=== PATIENT | male | born 1970 | race Caucasian/White ===

== ENCOUNTER 2019-07-03 17:25 | Emergency (ER) | payer BC, SELFPAY ==
[2019-07-03 17:26] VITALS: BP 148/77; PULSE 97; RESP 16; TEMP 36.6; O2SAT 97; BMI 34.5
--- NOTE | 2019-07-03 17:40 | RAD_ITS ---
STUDY: X-RAY - LEFT FOOT CLINICAL: Male, 48 years old. Pain. TECHNIQUE: 3 view(s) of the foot. COMPARISON: None. FINDINGS: Moderate plantar spur, otherwise negative talus, calcaneus, and tarsal bones. Normal visualized subtalar, talonavicular, calcaneocuboid, tarsal and tarsometatarsal articulations. Normal metatarsi. Normal metatarsophalangeal joint of the great toe. Normal tibial and fibular sesamoid bones. Normal interphalangeal joint of the great toe. Normal phalanges of the great toe. Normal second through fifth metatarsophalangeal joints. Normal interphalangeal joints and phalanges of the lesser toes. The soft tissue structures are unremarkable. There is no demonstrated fracture. RAD/Foot min 3 Views IMPRESSION: Normal x-ray examination of the foot. Electronically Signed: Baldomero Contreras MD at 17:58 EST , Service support ,
--- NOTE | 2019-07-03 17:41 | ED.DCSUM_ITS ---
- ER Visit Summary Date of Service: 07/03/19 Chief Complaint: [Left foot pain] History of Present Illness: The patient is a 48 M [presents to the emergency department complaint of pain in his left foot that is had for about 6 months. 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 Patient states that he has had a cortisone injection and it and gave him relief in the past. Patient since yesterday started having increasing pain. Patient states that he felt a pop yesterday and again today and it. At rest is only about a 3 out of 10 but with ambulating he has severe pain especially with attempted dorsiflexion of the foot. Patient denies any inj ury. Denies any fevers.] Physical Examination: [Left foot-no defect in the tendon noted. He is got an normal Stephenson's test. He is neurovascular intact. There is no erythema or warmth noted.] Test Results: [X-rays of the left foot were obtained which showed a heel spur and spurring at the insertion of the Achilles tendon into the heel. No fractures noted. Official report from radiology pending.] Emergency Department Course and Treatment: [Patient did not want crutches. Patient did not want a walking boot. Patient would like to follow-up with his infant and toddler teacher next week.] Suspect patient likely has a tendinitis however cannot rule out a partial tear. Treatment Plan: [Patient will be given a prescription for few [place] for severe pain. He is currently on naproxen.] Disposition: [Discharged home in stable condition] Impression: [Tendinitis left Achilles tendon] This note was generated with [employer] dictation software. It may contain incorrect words, spelling, and punctuation that were not noted in review of the chart prior to signing ED Disposition - Plan for ED Patient: Referrals: NOT,DEFINED [NON-STAFF] -
--- NOTE | 2019-07-03 18:00 | DCINST.ED_ITS ---
ED Disposition - Plan for ED Patient: Instructions: Tendonitis Prescriptions: Hydrocodone Bitart/Apap 5-325 [[place] 5MG-325MG] 1 tab PO Q4H PRN PRN 2 Days #10 tab PRN Reason: Pain Prescription Printed Referrals: NOT,DEFINED [NON-STAFF] - Additional Instructions: See Dr. Tinsley in 3-5 days
== END 2019-07-03 18:11 | disposition home or self-care (01) ==
LOC: ED 17:53
PROVIDERS: Emergency Provider Emergency Medicine; PCP Family Medicine
DX: M76.62 Achilles tendinitis, left leg (principal)
CPT/HCPCS: 73630; 99282

== ENCOUNTER 2020-05-06 09:04 | Emergency (ER) | payer BC, SELFPAY ==
[2020-05-06 09:05] VITALS: BP 154/100; PULSE 75; RESP 16; TEMP 36.3; O2SAT 97; BMI 33.9
--- NOTE | 2020-05-06 10:11 | ED.DCSUM_ITS ---
- ER Visit Summary Date of Service: 05/06/20 Chief Complaint: Back pain History of Present Illness: The patient is a 49 M who presents with back pain that has been getting worse over the past few days. Patient states it is gradually gotten worse. Patient states that it has been constant. Patient describes the pain as sharp. Patient states the pain is over the left upper thoracic area. Patient states it radiates into his neck and down his left arm. Patient admits to some tingling in the fingers of his left hand. Patient denies any weakness. Patient denies any bowel or bladder changes. Patient denies any saddle anesthesia. Patient denies any trauma or injury. Physical Examination: Vital signs are stable. Patient is afebrile. Patient is in no acute distress. Oral mucosa is pink and moist. Neck is supple. Trachea is midline. There is no JVD. Heart was regular rate and rhythm. Lungs are clear and equal bilaterally. Musculoskeletal exam reveals tenderness and spasm of the left thoracic paraspinal muscles and parascapular muscles. There is also some mild tenderness and spasm over the left cervical paraspinal muscles. There is no midline tenderness. There is no bony crepitance or step-off. Range of motion was slightly limited in all motions of the neck and upper back secondary to pain. Strength is 5/5 bilateral knee upper and lower extremities. There are no sensory deficits. Test Results: Portable 1 view chest x-ray was obtained. On my interpretation, lung bernal are clear. There is normal cardiac silhouette. Bony thorax is normal. There is no acute process noted. Radiologist also interpreted the x- ray and agrees. Emergency Department Course and Treatment: Patient was given a dose of [place] here. Patient was given prescriptions for Naprosyn and Valium. Patient was ins tructed to use ice to the area. Patient was instructed to follow-up with his primary care physician in 5 to 7 days. Patient understood and was agreeable with the plan. All questions were answered. Disposition: Discharge home Impression: 1. Acute thoracic strain This note was generated with [employer] dictation software. It may contain incorrect words, spelling, and punctuation that were not noted in review of the chart prior to signing ED Disposition - Plan for ED Patient: Disposition: Home or Assisted Living Diagnosis: Acute thoracic myofascial strain Prescriptions: Naproxen [Naprosyn] 500 mg PO BID PRN #20 tab Prescription Printed Diazepam [Valium] 5 mg PO QHS PRN PRN #10 tab PRN Reason: Muscle Spasm Prescription Printed Referrals: Sagar Hickey MD [Primary Care Provider] - 3-5 Days
--- NOTE | 2020-05-06 10:12 | RAD_ITS ---
STUDY: X-RAY CHEST REASON FOR EXAM: Male, 49 years old. BACK, NECK AND LEFT ARM/LEFT SHOULDER PAIN. WORSE WITH MOVEMENT. DENIES INJURY. TECHNIQUE: AP upright portable view. COMPARISON: None. FINDINGS: Faintly calcified granuloma in the right lower peripheral lung zone. No suspicious pulmonary nodules or infiltrates. There is no demonstrated pleural abnormality. Normal size heart. Normal mediastinum and anum. Normal visualized pulmonary arteries. Normal visualized aortic arch and descending thoracic aorta. Normal visualized thoracic spine. Normal visualized ribs, clavicles, and shoulders. There is no demonstrated abnormality of the visualized soft tissue structures of the upper abdomen. RAD/Chest 1 View (Portable) IMPRESSION: No acute cardiopulmonary pathology. Electronically Signed: Dylon Kahn MD at 10:47 EST , Service support ,
[2020-05-06] MEDS: HYDROcodone Bitartrate/Apap 5/325 Tablet PO (10:20)
== END 2020-05-06 11:48 | disposition home or self-care (01) ==
PROVIDERS: Emergency Provider Emergency Medicine; PCP Family Medicine
DX: S29.012A Strain of muscle and tendon of back wall of thorax, initial encounter (principal); I10 Essential (primary) hypertension; X58.XXXA Exposure to other specified factors, initial encounter
CPT/HCPCS: 71045; 99282

== ENCOUNTER 2020-05-29 13:17 | Emergency (ER) | payer BC, SELFPAY ==
[2020-05-29 13:18] VITALS: BP 144/94; PULSE 103; RESP 16; TEMP 37; O2SAT 96; BMI 36.1
--- NOTE | 2020-05-29 13:34 | EKG12_ITS ---
Test Reason : SOB Blood Pressure : / mmHG Vent. Rate : 095 BPM Atrial Rate : 095 BPM P-R Int : 146 ms QRS Dur : 104 ms QT Int : 344 ms P-R-T Axes : 005 -17 037 degrees QTc Int : 432 ms Normal sinus rhythm Normal ECG Confirmed by NAOMIE RAMOS, ROMINA ([id number]), editor greeting card ZEN SOSA ([id number]) on 06/07/2020 10:09:03 AM Referred By: RAMIRO Confirmed By:AMERICA AKBAR MD
--- NOTE | 2020-05-29 13:35 | ED.VISSUMM ---
- ER Visit Summary Date of Service: 05/29/20 Chief Complaint: [Cough] History of Present Illness: The patient is a 49 M [presents to the emergency department with complaint of cough and symptoms of not feeling well for the last 2 days. Patient states that both his and stepson have COVID-19. Patient states that he was tested a week ago because of the exposure at which time he was not symptomatic and was negative for Covid. Patient had fever up to 99 9 at home today. He complains of some mild dyspnea and some chest tightness. Patient was seen in urgent care and referred to the ER. Patient has history of hypertension high cholesterol. He has no heart history. No recent travel or surgery. No history of PE or DVT.] Physical Examination: [HEENT-PERRLA, EOMI. Cranial nerves II through XII grossly intact. TMs clear. Mucous membranes moist. No adenopathy. Cardiovascular-regular rate and rhythm without murmur or ectopy Lungs-clear to auscultation, chest wall stable without crepitus or subcu emphysema Abdomen-normoactive bowel sounds, soft, nontender, no rebound or rigidity, no peritoneal signs. Extremities-intact ?4, normal range of motion, normal pulses, atraumatic] Test Results: [EKG obtained on arrival shows sinus rhythm with a ventricular rate of 95 bpm with no acute segment changes. CBC with differential showing a 4.0, hemoglobin 16, hematocrit 45, plates 190. Chemistries unremarkable. D-dimer is normal 0.44. Troponin is less than 0.015. Chest x-ray was normal. As interpreted by myself and radiology in agreement. Patient also had a COVID-19 rapid antibody test that was positive.] Emergency Department Course and Treatment: [I discussed results with patient. On arrival patient had an IV line established.] Treatment Plan: [Patient in agreement with monoclonal infusion and would like referral for such. I did call in referral to the referral line. Patient meets criteria and that his BMI is over 35.] Disposition: [Discharged home in stable condition] Impression: [COVID-19 upper respiratory infection] This note was generated with [employer] software. It may contain incorrect words, spelling, and punctuation that were not noted in review of the chart prior to signing ED Disposition - Plan for ED Patient: Referrals: Sagar Hickey MD [Primary Care Provider] -
--- NOTE | 2020-05-29 13:44 | NURSING ---
PT DID NOT HAVE A PREVIOUS EKG DONE IN OUR SYSTEM
[2020-05-29] MEDS: 0.9% Normal Saline 1,000 ML 15 ML IV (14:14)
--- NOTE | 2020-05-29 14:15 | RAD_ITS ---
STUDY: X-RAY CHEST REASON FOR EXAM: Male, 49 years old. CP W/ COUGH, SOB. AND CHILD COVID(+), PT WAS NEGATIVE LAST WK TECHNIQUE: Single AP portable view of the chest. COMPARISON: Comparison is made with prior study dated 05/06/2020. FINDINGS: EKG electrodes are seen. The lungs are clear and expanded. There is no demonstrated pleural abnormality. Normal size heart. Normal mediastinum and anum. Normal visualized pulmonary arteries. Normal visualized aortic arch and descending thoracic aorta. Normal visualized thoracic spine. Normal visualized ribs, clavicles, and shoulders. There is no demonstrated abnormality of the visualized soft tissue structures of the upper abdomen. RAD/Chest 1 View (Portable) IMPRESSION: Normal x-ray examination of the chest. Electronically Signed: Luis Eduardo Lu, at 14:48 EST , Service support ,
[2020-05-29 14:21] VITALS: BP 120/79; PULSE 91; RESP 19; TEMP 36.6; O2SAT 96
[2020-05-29 14:23] LABS: Absolute Lymphocyte Count 0.86 X10^3/uL (0.83-4.51); Absolute Neutrophil Count 2.6 X10^3/uL (2.0-7.7); Basophil# 0.02 X10^3/uL; Basophil% 0.5 % (0-1); Eosinophil# 0.05 X10^3/uL; Eosinophils% 1.2 % (0-5); Hematocrit 45.3 % (40-54); Hemoglobin 16.1 g/dL (13.0-16.5); Lymphocyte # 0.86 X10^3/ul (4.0); Lymphocyte % 21.4 % (19-41); Mean Corp Hgb Conc 35.5 g/dL (32-36); Mean Corpuscular Hgb 31.4 pg (27.0-32.0); Mean Corpuscular Volume 88.3 fL (80-94); Mean Platelet Vol. 9.3 fl (6.2-12.0); Monocyte# 0.52 X10^3/uL; NRBC Flagged by Analyzer 0 % (0-5); Neutrophil # 2.55 X10^3/uL (2.7-7.7); Neutrophil % 63.7 % (47-70); Platelet Count 190 K/mm3 (150-450); RBC Distribution Width CV 12.7 % (11.6-14.6); RBC Distribution Width SD 40.8 fl (35.1-43.9); Red Blood Count 5.13 M/mm3 (4.6-6.2)
[2020-05-29 14:33] LABS: D-Dimer Quantitative (DVT/PE) 0.44 FEU/ug/m (0.27-0.49)
[2020-05-29 14:39] LABS: Anion Gap 6 (5-15); BUN 15 mg/dL (7-18); BUN/Creat Ratio 16.6 RATIO (10-20); Calcium,Total 8.2 mg/dL (8.5-10.1); Chloride 107 mmol/L (98-107); EST Glomerular Filtration Rate 94 mL/min (>60); Est Glom Filt Rate - Afr Amer 114 mL/min (>60); Estimated Creatinine Clearance 107.78 ml/min; Glucose 96 mg/dL (74-106); Potassium 3.7 mmol/L (3.5-5.1); Sodium Level 139 mmol/L (136-145)
--- NOTE | 2020-05-29 15:01 | ED.DEP ---
ED Disposition - Plan for ED Patient: Instructions: Coronavirus Disease 2019 (COVID-19): Overview, Coronavirus Disease 2019 (COVID-19): Caring for Yourself or Others Referrals: Sagar Hickey MD [Primary Care Provider] - 5-7 Days
[2020-05-29 15:18] VITALS: BP 132/74; PULSE 89; RESP 17; O2SAT 96
== END 2020-05-29 15:20 | disposition home or self-care (01) ==
LOC: ED 13:56
PROVIDERS: Emergency Provider Emergency Medicine; PCP Family Medicine
DX: U07.1 COVID-19 (principal); J06.9 Acute upper respiratory infection, unspecified; I10 Essential (primary) hypertension
CPT/HCPCS: 71045; 80048; 84484; 85025; 85379; 87040; 87426; 93005; 99283; J7030; A4216

== ENCOUNTER 2020-05-30 12:21 | Outpatient (CLI) | payer BC, SELFPAY ==
[2020-05-30 12:45] VITALS: BP 121/81; PULSE 81; RESP 18; TEMP 36.9; O2SAT 96; BMI 35.2
[2020-05-30 13:35] VITALS: BP 130/83; PULSE 89; RESP 14; TEMP 37.2; O2SAT 96
[2020-05-30 14:05] VITALS: BP 124/76; PULSE 77; RESP 16; TEMP 37; O2SAT 97
[2020-05-30 14:39] VITALS: BP 115/70; PULSE 78; RESP 14; TEMP 36.9; O2SAT 97
[2020-05-30 15:06] VITALS: BP 118/73; PULSE 84; RESP 14; TEMP 36.6; O2SAT 96
== END 2020-05-30 15:12 | disposition home or self-care (01) ==
LOC: MS2OUT 12:22 → MS2 12:23
PROVIDERS: PCP Family Medicine; Referring Provider Nurse Practitioner Acute Care; Visit Provider Nurse Practitioner Acute Care
DX: U07.1 COVID-19 (principal)
CPT/HCPCS: 96365; J7050; M0239; Q0239

== ENCOUNTER 2021-02-14 11:13 | Emergency (ER) | payer BC, SELFPAY ==
[2021-02-14 11:16] VITALS: BP 140/92; PULSE 68; RESP 17; TEMP 36.6; O2SAT 98; BMI 34.2
--- NOTE | 2021-02-14 11:41 | EKG12_ITS ---
Test Reason : SOB Blood Pressure : / mmHG Vent. Rate : 057 BPM Atrial Rate : 057 BPM P-R Int : 168 ms QRS Dur : 104 ms QT Int : 426 ms P-R-T Axes : 004 -09 015 degrees QTc Int : 414 ms Sinus bradycardia Otherwise normal ECG Confirmed by NAOMIE RAMOS, ROMINA ([id number]), television news video editor ZEN SOSA ([id number]) on 02/15/2021 12:54:49 PM Referred By: IGNACIA Confirmed By:AMERICA AKBAR MD
--- NOTE | 2021-02-14 11:41 | RAD_ITS ---
History: sob EXAMINATION/TECHNIQUE: XR Chest 1 View: Portable COMPARISON: May 29, 2020 FINDINGS: LINES/DEVICES: None. LUNGS: No consolidation, edema or effusion. No pneumothorax. MEDIASTINUM AND CARDIOVASCULAR STRUCTURES: Cardiac silhouette not enlarged. Central airways and mediastinal contour are unremarkable. BONES AND SOFT TISSUES: Unremarkable. RAD/Chest 1 View (Portable) IMPRESSION: No radiographic evidence of acute cardiopulmonary disease. at 1311 Reported and signed by: Rajan Briseno MD Electronically Signed: Rajan Briseno MD at 13:10 EDT Tel , Service support ,
--- NOTE | 2021-02-14 11:42 | EX.ED.DYSGE1 ---
HPI History of Present Illness Chief Complaint: Nausea/Vomiting Informant: patient and spouse/S.O. Onset/Context/Timing Onset: Days (5 days) Context: Gradual Onset Timing: Waxes and wanes Current Severity: Moderate Maximum Severity: Moderate Narrative Narrative: Patient presents with 5-day history of just not feeling well. He had nausea and vomiting along with headache and dizzy spells. He does report chills and then feeling hot. He has intermittent substernal chest pain, none at present. [facility] Medical History High cholesterol Hypertension Home Medications atorvastatin 20 mg PO QHS 05/06/20 [History Last Taken Unknown] lisinopril-hydrochlorothiazide 1 ea PO DAILY 05/06/20 [History Last Taken Unknown] naproxen 500 mg PO BID PRN #20 tab 05/06/20 [Rx Last Taken Unknown] tadalafil 5 mg PO DAILY 05/06/20 [History Last Taken Unknown] testosterone cypionate 2 mg IM SA 05/06/20 [History Last Taken Unknown] buprenorphine-naloxone 0.33 film SUBLINGUAL DAILY 02/14/21 [History Last Taken Unknown] meclizine 25 mg PO TID PRN #10 tab 02/14/21 [Rx Last Taken Unknown] ondansetron 4 mg PO Q8H PRN #10 tab 02/14/21 [Rx Last Taken Unknown] Allergy/AdvReac Type Severity Reaction Status Date / Time No Known Allergies Allergy Verified 02/14/21 11:13 Social History Smoking Status: Never smoker ROS ROS ED Constitutional Constitutional ED: Reports chills; Denies fever(s) Eyes Eyes: Denies change in vision ENT ENT ED: Reports other Details: Head congestion with thick sputum ; Denies sore throat Cardiovascular Cardiovascular: Reports chest pain Respiratory/Chest Respiratory/Chest: Reports cough and dyspnea Gastrointestinal Gastrointestinal: Reports nausea and vomiting; Denies abdominal pain or diarrhea Genitourinary Genitourinary ED: Denies dysuria Musculoskeletal Musculoskeletal: Reports myalgias; Denies back pain Integumentary Denies rash Neurologic Neurologic: Reports headache(s); Denies weakness Allergic/Immunologic Allergic/Immunologic ED: Denies urticaria EXAM Physical Exam Const Vital Signs: 02/14/21 11:16 Temperature 97.9 F Temperature Source Temporal Pulse Rate 68 Respiratory Rate 17 Blood Pressure 140/92 H Blood Pressure Mean 108 Pulse Ox 98 Oxygen Delivery Method Room Air Positive well nourished and well developed General Appearance ED: well developed HEENT Reports normocephalic and head/scalp atraumatic Eyes PERRL and EOMs intact bilaterally Neck supple Chest Wall inspection of chest normal and palpation of chest normal Resp normal respiratory effort and clear to auscultation bilaterally Cardio regular rate and regular rhythm GI normal to inspection, nondistended, normoactive bowel sounds and non-tender Palpation: soft Extremity normal to inspection Neuro oriented x3 and no sensory deficits noted Sensorium / Orientation: alert Motor Exam: strength 5/5 throughout Psych mental status grossly normal Skin no rashes or lesions noted MDM MDM MDM Narrative Medical decision making narrative: Lab work, EKG obtained. Portable chest x-ray ordered. Patient is given Zofran and IV fluids. Lab Data Attestation: I reviewed the patient's lab results. Labs: Laboratory Results - last 24 hr 02/14/21 02/14/21 12:00 12:00 WBC 7.9 RBC 5.30 Hgb 16.5 Hct 47.8 MCV 90.2 MCH 31.1 MCHC 34.5 RDW Std Deviation 40.8 RDW Coeff of Mikey 12.4 Plt Count 248 MPV 8.9 Immature Gran % (Auto) 0.500 Neut % (Auto) 68.6 Lymph % (Auto) 22.4 Coles % (Auto) 6.3 Eos % (Auto) 1.8 Baso % (Auto) 0.4 Absolute Neuts (auto) 5.4 Absolute Lymphs (auto) 1.78 Nucleated RBC % 0 Sodium 137 Potassium 4.3 Chloride 106 Carbon Dioxide 27.0 Anion Gap 4 L BUN 23 H Creatinine 0.94 Estim Creat Clear Calc 102.04 Est GFR (MDRD) Af Amer 108 Est GFR (MDRD) Non-Af 89 BUN/Creatinine Ratio 24.4 H Glucose 99 Calcium 8.8 Total Bilirubin 1.20 H Direct Bilirubin 0.22 AST 12 L ALT 27 Alkaline Phosphatase 84 Troponin I High Sens 10 Total Protein 7.5 Albumin 4.0 Globulin 3.5 Covid swab negative Radiography Chest X-Ray - ED: 1 View, Read by ED Physician and Chronic Changes Diagnostic Testing: Radiology Impression Chest X-Ray 02/14/21 11:41 IMPRESSION: No radiographic evidence of acute cardiopulmonary disease. at 1311 Reported and signed by: Rajan Briseno MD Electronically Signed: Rajan Briseno MD at 13:10 EDT Tel , Service support , Brain CT 02/14/21 12:56 IMPRESSION: No acute abnormality. Individualized dose optimization techniques were used for this CT. at 1329 Reported and signed by: Rajan Briseno MD Electronically Signed: Rajan Briseno MD at 13:28 EDT Tel , Service support , EKG Initial EKG: Attestation: I personally reviewed and interpreted this EKG as follows: Interpretation: Sinus Bradycardia (Sinus bradycardia 57 bpm. No acute ischemia.) Treatment and Re-Evaluation Comments:: Patient's labs are reviewed. Head CT and Antivert was provided given the patient's intermittent vertigo. On repeat evaluation patient resting comfortably. Test results discussed with patient and at bedside. I believe he likely has a viral syndrome with his constitutional symptoms. He will be given a work note until symptoms resolve. He will be given prescription for Antivert and antiemetics. Discharge Plan Triage Chief Complaint: Nausea/Vomiting ED Provider: Keyanna Mcintosh Dx/Rx/DC Orders Clinical Impression: Viral syndrome Instructions: ED Viral Syndrome (Adult) Prescriptions: New meclizine 25 mg tablet 25 mg PO TID PRN (Reason: dizziness) Qty: 10 RF: 0 ondansetron 4 mg tablet,disintegrating 4 mg PO Q8H PRN (Reason: nausea and vomiting) Qty: 10 RF: 0 No Action atorvastatin 20 MG tablet 20 mg PO QHS RF: 0 lisinopril-hydrochlorothiazide 1 EACH tablet 1 ea PO DAILY RF: 0 testosterone cypionate 100 MG/ML oil 2 mg IM SA RF: 0 tadalafil 5 MG tablet 5 mg PO DAILY RF: 0 naproxen 500 MG tablet 500 mg PO BID PRN Qty: 20 RF: 0 buprenorphine-naloxone 2-0.5 mg film 0.33 film sublingual DAILY RF: 0 Stand Alone Forms: ED Work / School Excuse Primary Care Provider: Sagar Hickey Referrals: Sagar Hickey MD [Primary Care Provider] - 1 Week if not improving Disposition Disposition: Home, Self Care
[2021-02-14] MEDS: Ondansetron 4 MG/2 ML Vial IV (11:59)
[2021-02-14 12:07] LABS: Absolute Lymphocyte Count 1.78 X10^3/uL (0.83-4.51); Absolute Neutrophil Count 5.4 X10^3/uL (2.0-7.7); Basophil# 0.03 X10^3/uL; Basophil% 0.4 % (0-1); Eosinophil# 0.14 X10^3/uL; Eosinophils% 1.8 % (0-5); Hematocrit 47.8 % (40-54); Hemoglobin 16.5 g/dL (13.0-16.5); Lymphocyte # 1.78 X10^3/ul (0.83-4.51); Lymphocyte % 22.4 % (19-41); Mean Corp Hgb Conc 34.5 g/dL (32-36); Mean Corpuscular Hgb 31.1 pg (27.0-32.0); Mean Corpuscular Volume 90.2 fL (80-94); Mean Platelet Vol. 8.9 fl (6.2-12.0); Monocyte% 6.3 % (0-10); NRBC Flagged by Analyzer 0 % (0-5); Neutrophil # 5.44 X10^3/uL (2.7-7.7); Neutrophil % 68.6 % (47-70); Platelet Count 248 K/mm3 (150-450); RBC Distribution Width CV 12.4 % (11.6-14.6); RBC Distribution Width SD 40.8 fl (35.1-43.9); White Blood Count 7.9 K/mm3 (4.4-11.0)
[2021-02-14 12:26] LABS: AST(SGOT) 12 U/L (15-37); Alanine Aminotransfer ALT/SGPT 27 U/L (16-61); Alkaline Phosphatase 84 U/L (45-117); Anion Gap 4 (5-15); BUN 23 mg/dL (7-18); BUN/Creat Ratio 24.4 RATIO (10-20); Bilirubin, Direct 0.22 mg/dL (0.00-0.30); Calcium,Total 8.8 mg/dL (8.5-10.1); Chloride 106 mmol/L (98-107); Creatinine, Serum 0.94 mg/dL (0.70-1.30); EST Glomerular Filtration Rate 89 mL/min (>60); Est Glom Filt Rate - Afr Amer 108 mL/min (>60); Estimated Creatinine Clearance 102.04 ml/min; Globulin 3.5 g/dL (2.2-4.2); Glucose 99 mg/dL (74-106); Potassium 4.3 mmol/L (3.5-5.1); Protein, Total 7.5 g/dL (6.4-8.2); Sodium Level 137 mmol/L (136-145); Troponin-I HS 10 pg/mL (3.0-78.0)
--- NOTE | 2021-02-14 12:56 | CT_ITS ---
EXAM: CT HEAD WITHOUT INTRAVENOUS CONTRAST : 1970 CLINICAL INDICATION: vertigo TECHNIQUE: Multiple axial images were obtained of the head without intravenous contrast. This CT exam was performed using one or more of the following dose reduction techniques: automated exposure control, adjustment of the mA and/or kV according to patient size, and/or use of iterative reconstruction technique. This report was created using [employer] report generation technology. COMPARISON: None. FINDINGS: BRAIN AND EXTRA-AXIAL SPACES: Unremarkable. No intra- or extra-axial hemorrhage. No evidence of acute infarct. No intracranial mass or mass effect. There is preservation of the brown/white matter interface. Posterior fossa structures are unremarkable. Ventricles are appropriate for age. No hydrocephalus. Basal cisterns are patent. BONES/JOINTS: Unremarkable. No discrete lytic or blastic abnormalities. SINUSES: Unremarkable as visualized. Clear. MASTOID AIR CELLS: Unremarkable. Clear. ORBITS: Visualized globes, extraocular muscles, optic nerves and retrobulbar fat appear unremarkable. CT/Brain/Head without Contrast IMPRESSION: No acute abnormality. Individualized dose optimization techniques were used for this CT. at 1329 Reported and signed by: Rajan Briseno MD Electronically Signed: Rajan Briseno MD at 13:28 EDT Tel , Service support ,
[2021-02-14] MEDS: Meclizine HCl 25 MG Tablet PO (13:27)
[2021-02-14 14:14] VITALS: BP 140/89; PULSE 73; RESP 16; O2SAT 98
== END 2021-02-14 14:15 | disposition home or self-care (01) ==
PROVIDERS: Emergency Provider Emergency Medicine; PCP Family Medicine
DX: B34.9 Viral infection, unspecified (principal); E78.00 Pure hypercholesterolemia, unspecified; I10 Essential (primary) hypertension; Z79.899 Other long term (current) drug therapy
CPT/HCPCS: 70450; 71045; 80048; 80076; 84484; 85025; 87426; 93005; 96361; 96374; 99284; J7040; A4216; J2405

== ENCOUNTER 2022-08-20 07:55 | Emergency (ER) | payer BC, SELFPAY ==
[2022-08-20 07:57] VITALS: BP 132/88; PULSE 76; RESP 14; TEMP 36.4; O2SAT 96; BMI 33.9
[2022-08-20 08:03] VITALS: BP 156/93; PULSE 76; RESP 18; O2SAT 97
[2022-08-20 08:09] VITALS: BMI 33.9
--- NOTE | 2022-08-20 08:30 | EDS_ITS ---
HPI History of Present Illness Chief Complaint: Neuro S/Sx Informant: patient and spouse/S.O. Onset/Context/Timing Onset: Days (2) Context: Gradual Onset Timing: Continuous Narrative Narrative: Patient with couple days of left-sided facial weakness, he had some tingling inside of his mouth on the left side of his tongue initially. Now he is dribbling fluids out of his mouth, and he is having trouble closing his left eye. No history of stroke. On medication for blood pressure which she is compliant with. No trouble talking or speaking and he feels normal otherwise, except for some mild discomfort behind his left ear. [facility] Medical History High cholesterol Hypertension Home Medications atorvastatin 20 mg tablet 20 mg PO QHS 05/06/20 [History Last Taken Unknown] lisinopril 20 mg-hydrochlorothiazide 12.5 mg tablet 1 ea PO DAILY 05/06/20 [History Last Taken Unknown] naproxen 500 mg tablet 500 mg PO BID PRN #20 tabs 05/06/20 [Rx Last Taken Unknown] tadalafil 5 mg tablet 5 mg PO DAILY 05/06/20 [History Last Taken Unknown] testosterone cypionate 100 mg/mL intramuscular oil 2 mg IM SA 05/06/20 [History Last Taken Unknown] buprenorphine 2 mg-naloxone 0.5 mg sublingual film 0.33 film sublingual DAILY 02/14/21 [History Last Taken Unknown] meclizine 25 mg tablet 25 mg PO TID PRN dizziness #10 tabs 02/14/21 [Rx Last Taken Unknown] ondansetron 4 mg disintegrating tablet 4 mg PO Q8H PRN nausea and vomiting #10 tabs 02/14/21 [Rx Last Taken Unknown] prednisone 20 mg tablet 60 mg PO DAILY #21 TABLETS 08/20/22 [Rx Last Taken Unknown] valacyclovir 1 gram tablet 1,000 mg PO TID #21 tabs 08/20/22 [Rx Last Taken Unknown] Allergy/AdvReac Type Severity Reaction Status Date / Time No Known Allergies Allergy Verified 08/20/22 07:58 Family History no significant family his Social History Smoking Status: Never smoker ROS ROS ED Constitutional Constitutional ED: Denies chills or fever(s) Eyes Eyes: Denies change in vision or diplopia ENT ENT ED: Denies rhinorrhea or sore throat Cardiovascular Cardiovascular: Denies chest pain or palpitations Respiratory/Chest Respiratory/Chest: Denies cough or dyspnea Gastrointestinal Gastrointestinal: Denies abdominal pain, diarrhea, nausea or vomiting Genitourinary Genitourinary ED: Denies dysuria or hematuria Musculoskeletal Musculoskeletal: Denies back pain or neck pain Integumentary Denies abscess or rash Neurologic Neurologic: Reports paresthesias and weakness; Denies headache(s) Psychiatric Psychiatric: Denies anxiety or suicidal thoughts EXAM Physical Exam Const Vital Signs: 08/20/22 07:57 08/20/22 08:03 Temperature 97.6 F L Temperature Source Temporal Pulse Rate 76 76 Respiratory Rate 14 18 Blood Pressure 132/88 H 156/93 H Blood Pressure Mean 102 114 Pulse Ox 96 97 Oxygen Delivery Method Room Air Room Air Positive well nourished and well developed General Appearance ED: well developed and NAD HEENT Reports moist mucous membranes HEENT Narrative: Mild left ptosis. Eyes appear normal. Able to stick tongue out straight. Paralysis of the musculature of the left side of the face including the forehead. No rash. TMs normal bilaterally and EACs normal without lesions. Mastoid process on the left is normal-appearing nontender without erythema or signs of infection. normocephalic and atraumatic Eyes PERRL and EOMs intact bilaterally Neck full ROM and supple Resp normal respiratory effort Back/Spine General Back: other FROM Extremity normal to inspection General Extremety ED: Negative for edema, pulses abnormal or tenderness General Extremity: Negative for edema or pulses abnormal Neuro oriented x3 and no sensory deficits noted Neuro Narrative: PeripheralSpeech normal. Left peripheral 7th cranial nerve palsy other cranial nerves normal. Peripheral neurologic exam normal. Sensorium / Orientation: awake and alert Motor Exam: strength 5/5 throughout Psych mental status grossly normal Skin no rashes or lesions noted and no wounds MDM MDM MDM Narrative Medical decision making narrative: Classic exam for Oswald's palsy. He has paralysis of the forehead muscles on the left where the other muscles are weak as well. There is a cut off of the midline and the right side is normal. Reassured and prescribed valacyclovir and prednisone, he recently started metformin because of an elevated A1c, not diagnosed with diabetes, advised to check his sugars if he is able. Discharge Plan Triage Chief Complaint: Neuro S/Sx ED Provider: Luis Herr Dx/Rx/DC Orders Clinical Impression: Left-sided Oswald's palsy Instructions: ED Oswald's Palsy Prescriptions: New prednisone 20 MG tablet 60 mg PO DAILY Qty: 21 0RF valacyclovir 1 gram tablet 1,000 mg PO TID Qty: 21 0RF No Action atorvastatin 20 MG tablet 20 mg PO QHS lisinopril-hydrochlorothiazide 1 EACH tablet 1 ea PO DAILY testosterone cypionate 100 MG/ML oil 2 mg IM SA Rx Instructions: every other week tadalafil 5 MG tablet 5 mg PO DAILY naproxen 500 MG tablet 500 mg PO BID PRN Qty: 20 0RF buprenorphine-naloxone 2-0.5 mg film 0.33 film sublingual DAILY Label Comments: dissolve 1/3 FILM under the tongue every evening for RLS PAIN meclizine 25 mg tablet 25 mg PO TID PRN (Reason: dizziness) Qty: 10 0RF ondansetron 4 mg tablet,disintegrating 4 mg PO Q8H PRN (Reason: nausea and vomiting) Qty: 10 0RF Primary Care Provider: Sagar Hickey Referrals: Sagar Hickey MD [Primary Care Provider] - As Needed Disposition Disposition: Home, Self Care
[2022-08-20 08:35] LABS: Bedside Glucose 139 mg/dL (74-106)
== END 2022-08-20 08:49 | disposition home or self-care (01) ==
PROVIDERS: Emergency Provider Emergency Medicine; PCP Family Medicine; Visit Provider Emergency Medicine
DX: G51.0 Bell's palsy (principal); E78.00 Pure hypercholesterolemia, unspecified; I10 Essential (primary) hypertension; Z79.899 Other long term (current) drug therapy; Z79.52 Long term (current) use of systemic steroids
CPT/HCPCS: 82962; 99282

== ENCOUNTER 2025-06-14 02:21 | Emergency (ER) | payer BC, SELFPAY ==
[2025-06-14] VITALS (11 sets, daily range): BP systolic 132–189; BP diastolic 79–107; PULSE 87–99; RESP 14–18; TEMP 36.6; O2SAT 94–97; BMI 33.6
--- NOTE | 2025-06-14 02:32 | CT_ITS ---
PROCEDURE: STROKE BRAIN/HEAD WITHOUT CONT 06/14/2025 REASON FOR EXAM: NEURO DEFICIT, ACUTE, STROKE SUSPECTED TECHNIQUE: Procedure Code: CTBR.ST Modality: CT Procedure: STROKE BRAIN/HEAD WITHOUT CONT Coronal and Sagittal reconstruction series were provided. One or more dose reduction techniques were used (e.g., Automated exposure control, adjustment of the mA and/or kV according to patient size, use of iterative reconstruction technique. RADIATION DOSE SUMMARY: CTDlvol: 16.2 mGy DLP: 584 mGycm COMPARISON: 02/14/2021. FINDINGS: Heterogeneous mass lesion at the brown-white matter junction of the left frontal/temporal lobes measuring 3.7 x 3.1 cm in its largest anteroposterior and transverse dimensions respectively containing tiny peripheral calcification versus minimal tiny punctate hemorrhagic focus measuring 1 mm in its medial/peripheral aspect, probably neoplastic pathology. Moderate surrounding edema and effacement of the corresponding sulci. Mild compression of the left lateral ventricle. 2.5 mm midline shift to the right side. Normal basal ganglia and thalami. Normal brainstem. Normal cerebellum. There is no demonstrated extra-axial or intraventricular hemorrhage. There are no findings of an acute ischemic infarction. Normal calvarium. There is no demonstrated fracture. Normal soft tissue structures. Normal visualized paranasal sinuses. CT/STROKE Brain/Head without Cont IMPRESSION: Heterogeneous mass lesion at the brown-white matter junction of the left frontal /temporal lobes measuring 3.7 x 3.1 cm in its largest anteroposterior and transverse dimensions respectively containing tiny peripheral calcification versus minimal tiny punctate hemorrhagic focus measuring 1 mm in its medial/peripheral aspect, prob ably neoplastic pathology. Moderate surrounding edema and effacement of the corresponding sulci. Mild compression of the left lateral ventricle. 2.5 mm midline shift to the right side. Discussed with Dr. Chris Guzmán in the emergency department at 3:15 a.m. EST. Reading [facility] [id number]
--- NOTE | 2025-06-14 02:32 | EKG12_ITS ---
Test Reason : STROKE Blood Pressure : */* mmHG Vent. Rate : 91 BPM Atrial Rate : 91 BPM P-R Int : 150 ms QRS Dur : 118 ms QT Int : 400 ms P-R-T Axes : 36 -19 53 degrees QTcB Int : 492 ms Normal sinus rhythm Non-specific intra-ventricular conduction delay Minimal voltage criteria for LVH, may be normal variant ( [place] product ) Nonspecific ST abnormality QTcB >= 480 msec Abnormal ECG Confirmed by Liban Rossi ([id number]), continuity editor ZEN SOSA ([id number]) on 06/17/2025 6:45:35 AM Referred By: CRISTOPHER Confirmed By: Liban Rossi
--- NOTE | 2025-06-14 02:35 | CT_ITS ---
PROCEDURE: STROKE CTA HEAD AND NECK W/CON 06/14/2025 REASON FOR EXAM: NEURO DEFICIT, ACUTE, STROKE SUSPECTED TECHNIQUE: Procedure Code: CTCTA.ST.HN Modality: CT Procedure: STROKE CTA HEAD AND NECK W/CON Multiplanar Sagittal and Coronal images were obtained. CONTRAST: Isovue 370 VOLUME: 100 mL One or more dose reduction techniques were used (e.g., Automated exposure control, adjustment of the mA and/or kV according to patient size, use of iterative reconstruction technique). RADIATION DOSE SUMMARY: CTDlvol: 18.9 mGy DLP: 761 mGycm COMPARISON: None. FINDINGS: CT angiography of the brain. Normal bilateral petrous carotid arteries. Normal right cavernous carotid artery with a normal supraclinoid bifurcation. Normal left cavernous carotid artery with a normal supraclinoid bifurcation. Normal right A1 segments of the anterior cerebral artery. Normal left A1 segments of the anterior cerebral artery. Normal intact anterior communicating artery (ACOM). Normal bilateral A2 segments of the anterior cerebral arteries. Normal right M1 and M2 segments of the middle cerebral arteries, with a normal M1 bifurcation. Normal left M1 and M2 segments of the middle cerebral arteries, with a normal M1 bifurcation. Normal right posterior communicating artery (PCOM). Normal left posterior communicating artery (PCOM). Normal bilateral vertebral arteries. Normal basilar artery with a normal basilar bifurcation. The visualized bilateral superior cerebellar (SCA) arteries are normal. Normal bilateral P1, P2 and visualized P3 segments of the posterior cerebral arteries. There is no demonstrated aneurysm of the [place]. There is no major vessel occlusion or hemodynamically significant stenosis. CT angiography of the neck. RIGHT CAROTID ARTERIES: Normal right common carotid artery (CCA). Calcified atheromatous plaques with 10% stenosis of the right common carotid bulb. Calcified atheromatous plaques with 10% stenosis of the origin of the right internal carotid (ICA) artery without a hemodynamically significant stenosis. Normal remaining visualized cervical portion of the right internal carotid artery. Normal origin of the right external carotid artery (ECA). LEFT CAROTID ARTERIES: Normal left common carotid artery (CCA). Calcified atheromatous plaques with 10% stenosis of the left common carotid bulb. Calcified atheromatous plaques with 10% stenosis of the origin of the left internal carotid (ICA) artery without a hemodynamically significant stenosis. Normal visualized cervical portion of the left internal carotid artery. Normal origin of the left external carotid artery (ECA). VERTEBRAL ARTERIES: Normal bilateral vertebral artery without a hemodynamically significant stenosis. CT/STROKE CTA Head AND Neck W/Con IMPRESSION: Atherosclerosis without high-grade stenosis. I discussed the findings with Dr. Chris Guzmán at 3:15 a.m. EST. Reading Location: [place] [address]
--- OUTSIDE RECORDS SUMMARY | 2025-06-14 02:36 | XMS RPT_ITS | CCD ---
Author Organization [facility] Care Team Providers Care Hand Mica Plate Layer Name Role Phone Pepe Kennedy Unavailable Unavailable Chayo Hickey MD Primary Care Provider Chayo Hickey MD Primary Care Provider Chayo Hickey MD Primary Care Provider Chayo Hickey MD Primary Care Provider GANESH OJEDA Attending Unavailable CHAYO HICKEY Primary Care Unavailab CARLTON Kumar Admitting Unavailable CARLTON HORN Attending Unavailable CHAYO HICKEY Primary Care Unavailab Sagar Sexton Primary Care Unavailable Luis Herr Attending Unavailable Podlogar BURIAL VAULT MAKER.Genesis LOZANO Primary Care Provider LUCI BALL Attending Unavailable LUCI BALL Admitting Unavailable PODGENESIS BELL Primary Care Unavailable Chayo Hickey MD Primary Care Provider Chayo Hickey MD Primary Care Provider CHAYO HICKEY Referring Unavailab CHAYO Sexton Primary Care UnavailChayo Hung MD Primary Care Provider Podlogar BURIAL VAULT MAKER.Genesis LOZANO Unavailable Knoble BURIAL VAULT MAKER.Candace LOZANO Unavailable Knoble BURIAL VAULT MAKER.Candace LOZANO Unavailable Knoble BURIAL VAULT MAKER.Candace LOZANO Unavailable Knoble BURIAL VAULT MAKER.STOGY ROLLER, Candace Unavailable CHAYO HICKEY Primary Care Unavailab shun MELO QUINONES Referring Unavailable CHAYO HICKEY Primary Care Unavailab MICHELLE Titus Attending Unavailable JADEN MAN Referring CHAYO Hunt Primary Care Unavailab MICHELLE Titus Referring Unavailable CHAYO HICKEY Primary Care Unavailab BLADE Hanley Referring Unavailable CHAYO HICKEY Primary Care Unavailab le PODLOGARGENESIS Referring Unavailable CHAYO HICKEY Primary Care Unavailab FRANK Lara Attending Unavailable CHAYO HICKEY Primary Care Unavailab GANESH Alcantara Referring Unavailable CHAYO HICKEY Primary Care Unavailab PRITI Corral Attending Unavailable CHAYO HICKEY Referring Unavailab CHAYO Sexton Primary Care Unavailab CHAYO Sexton Attending Unavailab CHAYO Sexton Primary Care Unavailab CHAYO Sexton Referring Unavailab CHAYO Sexton Primary Care Unavailab MIRIAM Box Attending Unavailable CHAYO HICKEY Primary Care Unavailab CHAYO Sexton Primary Care Unavailab CHAYO Sexton Primary Care Unavailab GANESH Alcantara Attending Unavailable CHAYO HICKEY Primary Care Unavailab le PODLOGGENESIS DRIVER Attending Unavailable CHAYO HICKEY Primary Care Unavailab le CIUNI, RAISA Referring Unavailable FRANK LAL Referring Unavailable CHAYO HICKEY Primary Care Unavailab CHAYO Sexton Primary Care Unavailab le CIUNI, RAISA Referring Unavailable CIUNI, RAISA Attending Unavailable FRANK LAL Attending Unavailable CHAYO HICKEY Primary Care Unavailab CHAYO Sexton Primary Care Unavailab LARRY Perla Attending Unavailable CHAYO HICKEY Primary Care Unavailab JADEN Gaston Attending Missael simmons Allergies Allergy Classification Reported Allergen(s) Allergy Type Date of Onset Reaction(s) Facility metFORMIN (1 source) metFORMIN Drug Allergy 03-04-2023 Intolerance [facility] Work Phone: (20 sources) metFORMIN; Translations: [METFORMIN] Drug Allergy 03-04-2023 Intolerance [facility] Work Phone: Medications Current Medications Medication Drug Class(es) Dates Sig (Normalized) Sig (Original) atorvastatin 20 mg oral tablet (20 sources) HMG-CoA Reductase Inhibitor Start: 03-01-2025 take 1 tablet by mouth once daily at bedtime for hyperlipidemia atorvastatin (LIPITOR) 20 mg tablet Indications: Hypertriglyceridemia Take 1 tablet by mouth daily at bedtime. For cholesterol. 90 tablet 1 03/01/2025 Active Start: 08-06-2019 End: 02-26-2025 take 1 tablet by mouth once daily at bedtime for hyperlipidemia atorvastatin (LIPITOR) 20 mg tablet Indications: Hypertriglyceridemia Take 1 tablet by mouth daily at bedtime. For cholesterol. 90 tablet 1 08/31/2024 02/26/2025 Discontinued Comment on above: Take 1 tablet by jose luis th daily at bedtime. For cholesterol. Blood-Glucose Meter monitoring kit (1 source) Start: 03-05-20 End: 03-06-20 Blood-Glucose Meter monitoring kit Glucose Meter of Choice - Kit - Dx: Type 2 DM - Uncontrolled E11.65 1 Each 0 03/05/2023 03/06/2023 Active Comment on above: Glucose Meter of Cho ice - Kit - Dx: Type 2 DM - Uncontrolled E11.65 24 hr buPROPion hydrochloride 150 mg extended release oral tablet (20 sources) Aminoketone Start: 10-09-19 End: 04-06-20 take 1 tablet by mouth once daily buPROPion XL (WELLBUTRIN XL) 150 mg 24 hr tablet Take 1 tablet by mouth once daily. 90 tablet 1 10/08/2024 04/06/2025 Active Start: 10-13-2023 End: 10-02-2024 take 1 tablet by mouth once daily buPROPion XL (WELLBUTRIN XL) 150 mg 24 hr tablet Take 1 tablet by mouth once daily. 90 tablet 1 04/05/2024 Active Start: 06-25-2023 End: 09-23-2023 take 1 tablet by mouth once daily buPROPion XL (WELLBUTRIN XL) 150 mg 24 hr tablet Take 1 tablet by mouth once daily. 90 tablet 0 06/25/2023 09/23/2023 Active Start: 05-13-2023 take 1 tablet by jose luis th once daily buPROPion XL (WELLBUTRIN XL) 150 mg 24 hr tablet Take 1 tablet by mouth once daily. 30 tablet 1 05/13/2023 Active Comment on above: Take 1 tablet by jose luis th once daily. ciprofloxacin 500 mg oral tablet (1 source) Quinolone Antimicrobial Start: End: ciprofloxacin HCl 500 mg tab(s) (CIPRO) hydroCHLOROthiazide 12.5 mg / lisinopril 20 mg oral tablet (20 sources) Thiazide Diuretic, Angiotensin Converting Enzyme Inhibitor Start: End: take 2 tablets by mouth once daily lisinopril-hydroCHL OROthiazide (ZESTORETIC) 20-12.5 mg per tablet Indications: Primary hypertension Take 2 tablets by mouth once daily. 180 tablet 1 10/08/2024 04/06/2025 Active Start: 07-08-2023 End: 10-06-2023 take 2 tablets by mouth once daily lisinopril-hydroCHLOROthiazide (ZESTORET IC) 20-12.5 mg per tablet Indications: Primary hypertension Take 2 tablets by mouth once daily. 180 tablet 0 07/08/2023 10/06/2023 Active Start: 05-13-2022 End: 05-03-2023 take 2 tablets by mouth once daily lisinopril-hydroCHLOROthiazide (ZESTORET IC) 20-12.5 mg per tablet Indications: Primary hypertension Take 2 tablets by mouth once daily. 180 tablet 1 11/04/2022 Active Start: 03-23-2021 End: 03-05-2022 take 2 tablets by mouth once daily lisinopril-hydroCHLOROthiazide (PRINZIDE,ZESTORETIC) 20-12.5 mg per tablet Indications: Primary hypertension Take 2 tablets by mouth once daily. 180 tablet 1 09/06/2021 Active Start: 02-29-2020 End: 08-22-2020 take 2 tablets by mouth once daily lisinopril-hydrochlorothiazide (PRINZIDE,ZESTORETIC) 20-12.5 mg per tablet Take 2 tablets by mouth once daily. 180 tablet 1 02/29/2020 08/22/2020 Discontinued Comment on above: Take 2 tablets by mo uth once daily. hydrocortisone 25 mg/ml topical cream (5 sources) Corticosteroid Start: 12-05-2021 End: 12-19-2021 hydrocortisone (ANUSOL-HC) 2.5 % rectal cream by RECTAL route twice daily for 14 days. 28 g 1 12/05/2021 12/19/2021 Active Start: 12-05-2021 End: 12-05-2021 take 25 mg rectal route every twelve hours as needed hydrocortisone (ANUSOL-HC) 25 mg suppository 1 Suppository by RECTAL route twice daily as needed (hemorrhoids/rectal pain). 24 Each 1 12/05/2021 12/05/2021 Discontinued Comment on above: by RECTAL route twic e daily for 14 days. 1 Suppository by REC LAUREN route twice daily as needed (hemorrhoids/rectal pain). 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 Patient should start on September 23, 2024. 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 Do not start before December 28, 2023. 30 tablet 12/28/2023 03/16/2024 Discontinued Start: 09-25-2023 End: 10-23-2024 methadone (DOLOPHINE) 5 mg t ablet Indications: Restless legs syndrome (RLS) , [facility] prescription opiate use Take 1.5 tablets by mouth every evening for 30 days. Patient should start on August 24, 2024. 45 tablet 08/24/2024 09/17/2024 Discontinued Start: 01-27-2023 End: 08-29-2023 methadone (DOLOPHINE) 5 mg t ablet Indications: Restless legs syndrome (RLS) , [facility] prescription opiate use Take 1.5 tablets by mouth every evening for 30 days. Do not start before August 26, 2023. 45 tablet 0 08/26/2023 08/29/2023 Discontinued Start: 11-25-2022 End: 01-02-2023 take 1.5 tablets by mouth once daily in the evening methadone (DOLOPHINE) 5 mg tablet Indications: Restless legs syndrome (RLS) Take 1.5 tablets by mouth every evening for 30 days. For refractory restless leg syndrome. 45 tablet 0 12/24/2022 01/02/2023 Discontinued (Course of therapy completed) Start: 11-09-2022 End: 01-02-2023 take 1 tablet by mouth once daily in the evening methadone (DOLOPHINE) 5 mg tablet Indications: Restless legs syndrome (RLS) Take 1 tablet by mouth every evening for 30 days. For refractory restless leg syndrome. Do not start before November 09, 2022. 30 tablet 0 11/09/2022 01/02/2023 Discontinued (Dosage adjustment) Start: 10-08-2022 End: 09-30-2022 take 1.5 tablets by mouth once daily in the evening methadone (DOLOPHINE) 5 mg tablet Indications: Restless legs syndrome (RLS) Take 1.5 tablets by mouth every evening for 30 days. for treatment refractory restless legs syndrome Do not start before October 08, 2022. 45 tablet 0 10/08/2022 09/30/2022 Discontinued (Dosage adjustment) Start: 10-07-2022 End: 11-06-2022 take 1 tablet by mouth once daily in the evening methadone (DOLOPHINE) 5 mg tablet Indications: Restless legs syndrome (RLS) Take 1 tablet by mouth every evening for 30 days. For refractory restless leg syndrome. Do not start before October 07, 2022. 30 tablet 0 10/07/2022 11/06/2022 Active Start: 08-09-2022 End: 11-07-2022 take 1.5 tablets by mouth once daily in the evening methadone (DOLOPHINE) 5 mg tablet Indications: Restless legs syndrome (RLS) Take 1.5 tablets by mouth every evening for 30 days. For refractory restless leg syndrome. Do not start before September 08, 2022. 45 tablet 0 09/08/2022 09/30/2022 Discontinued (Course of therapy completed) Start: 05-13-2022 End: 09-30-2022 take 1 tablet by mouth once at bedtime methadone (DOLOPHINE) 5 mg tablet Indications: Restless legs syndrome (RLS) 1 tablet po q bedtime for treatment refractory restless legs syndrome Do not start before July 11, 2022. 30 tablet 0 07/11/2022 08/02/2022 Discontinued Start: 12-13-2021 End: 05-08-2022 take 1 tablet by mouth once at bedtime methadone (DOLOPHINE) 5 mg tablet Indications: Restless legs syndrome (RLS) 1 tablet po q bedtime for treatment refractory restless legs syndrome 30 tablet 0 03/14/2022 04/08/2022 Discontinued Start: 11-05-2021 End: 12-05-2021 methadone 5 mg/5 mL solution Indications: Restless legs syndrome (RLS) , Chronic use of opiate for therapeutic purpose Take 4 mL by mouth every evening for 30 days. For RLS-pain Do not start before November 05, 2021. 120 mL 0 11/05/2021 Active Start: 10-06-2021 End: 10-05-2021 methadone 5 mg/5 mL solution Indications: Restless legs syndrome (RLS) , Chronic use of opiate for therapeutic purpose Take 4 mL by mouth every evening for 30 days. For RLS-pain Do not start before October 06, 2021. 120 mL 0 10/06/2021 10/05/2021 Discontinued Start: 10-05-2021 End: 11-05-2021 take 4 mL by mouth once daily in the evening for pain methadone 5 mg/5 mL solution Indications: Restless legs syndrome (RLS) , Chronic use of opiate for therapeutic purpose Take 4 mL by mouth every evening for 30 days. For RLS-pain 120 mL 0 10/05/2021 Active Start: 09-03-2021 End: 10-03-2021 take 4 mL by mouth once daily in the evening for pain methadone 5 mg/5 mL solution Indications: Restless legs syndrome (RLS) , Chronic use of opiate for therapeutic purpose Take 4 mL by mouth every evening for 30 days. For RLS-pain 120 mL 0 09/03/2021 09/26/2021 Discontinued Start: 07-06-2021 End: 07-31-2021 take 4 mL by mouth once daily in the evening for pain methadone 5 mg/5 mL solution Indications: Restless legs syndrome (RLS) , Chronic use of opiate for therapeutic purpose Take 4 mL by mouth every evening for 30 days. For RLS-pain 120 mL 0 07/06/2021 07/31/2021 Discontinued Comment on above: Take 4 mL by mouth e very evening for 30 days. For RLS-pain Take 4 mL by mouth e very evening for 30 days. For RLS-pain Do not start before October 06, 2021. Take 4 mL by mouth e very evening for 30 days. For RLS-pain Do not start before November 05, 2021. 1 tablet po q bedtim e for treatment refractory restless legs syndrome 1 tablet po q bedtim e for treatment refractory restless legs syndrome Do not start before January 13, 2022. 1 tablet po q bedtim e for treatment refractory restless legs syndrome Do not start before April 13, 2022. 1 tablet at night fo r refractory RLS pain Do not start before May 13, 2022. 1 tablet po q bedtim e for treatment refractory restless legs syndrome Do not start before July 11, 2022. Take 1.5 tablets by mouth every evening for 30 days. 1.5 tablet po q bedtime for treatment refractory restless legs syndrome Do not start before August 09, 2022. Take 1.5 tablets by mouth every evening for 30 days. For refractory restless leg syndrome. Do not start before September 08, 2022. Take 1.5 tablets by mouth every evening for 30 days. for treatment refractory restless legs syndrome Do not start before October 08, 2022. Take 1 tablet by jose luis th every evening for 30 days. For refractory restless leg syndrome. Do not start before October 07, 2022. Take 1 tablet by jose luis th every evening for 30 days. For refractory restless leg syndrome. Do not start before November 09, 2022. Take 1.5 tablets by mouth every evening for 30 days. For refractory restless leg syndrome. Take 1.5 tablets by mouth every evening for 30 days. For refractory restless leg syndrome. Do not start before January 27, 2023. Take 1.5 tablets by mouth every evening for 30 days. Do not start before February 26, 2023. Take 1.5 tablets by mouth every evening for 30 days. Take 1.5 tablets by mouth every evening for 30 days. Do not start before June 26, 2023. Take 1.5 tablets by mouth every evening for 30 days. Do not start before July 26, 2023. Take 1.5 tablets by mouth every evening for 30 days. Do not start before August 26, 2023. Take 1.5 tablets by mouth every evening for 30 days. Do not start before September 25, 2023. Take 1.5 tablets by mouth every evening for 30 days. Do not start before October 26, 2023. Take 1.5 tablets by mouth every evening for 30 days. Do not start before November 26, 2023. methylPREDNISolone (3 sources) Corticosteroid Start: 10-30-2024 End: 11-05-2024 methylPREDNISolone (MEDROL, LISSETH,) 4 mg Dose-Pack Follow dosing instructions, take with food. 21 tablet 10/30/2024 11/05/2024 Active Start: 05-08-2020 End: 05-14-2020 methylPREDNISolone (MEDROL, LISSETH,) 4 mg Dose-Pack Indications: Cervical radiculopathy Follow dosing instructions, take with food. 1 Package 05/08/2020 05/14/2020 naproxen 500 mg oral tablet (3 sources) Nonsteroidal Anti-inflammatory Drug Start: 03-02-2025 End: 05-01-2025 take 1 tablet by mouth twice daily as needed naproxen (NAPROSYN) 500 mg tablet Indications: Bilateral hip pain , Pain in both lower extremities Take 1 tablet by mouth two times a day as needed. Take with food. 60 tablet 1 03/02/2025 05/01/2025 Active End: 07-24-2021 take 1 tablet by mouth twice daily at mealtime naproxen (NAPROSYN) 500 mg tablet Take 500 mg by mouth twice daily with meals. 07/24/2021 Discontinued Comment on above: Take 500 mg by mouth twice daily with meals. semaglutide (OZEMPIC) 1 mg/dose (4 mg/3 mL) pen (20 sources) Start: 02-18-20 25 inject 1 mg by subcutaneous injection every week semaglutide (OZEMPIC) 1 mg/dose (4 mg/3 mL) pen Indications: Controlled type 2 diabetes mellitus without complication, without long-term current use of insulin (HCC) Inject 1 mg subcutaneously one time a week. 3 each 1 02/17/2025 Active Start: 12-22-2024 End: 02-16-2025 inject 1 mg by subcutaneous injection every week semaglutide (OZEMPIC) 1 mg/dose (4 mg/3 mL) pen Indications: Controlled type 2 diabetes mellitus without complication, without long-term current use of insulin (HCC) Inject 1 mg subcutaneously one time a week. 3 each 1 12/22/2024 02/16/2025 Discontinued Start: 12-22-2024 inject 1 mg by subcu taneous injection every week semaglutide (OZEMPIC) 1 mg/dose (4 mg/3 mL) pen Indications: Controlled type 2 diabetes mellitus without complication, without long-term current use of insulin (HCC) Inject 1 mg subcutaneously one time a week. 3 each 1 12/22/2024 Active Start: 10-29-2024 End: 12-22-2024 inject 1 mg by subcutaneous injection every week semaglutide (OZEMPIC) 1 mg/dose (4 mg/3 mL) pen Indications: Controlled type 2 diabetes mellitus without complication, without long-term current use of insulin (HCC) Inject 1 mg subcutaneously one time a week. 3 each 1 10/29/2024 12/22/2024 Discontinued Start: 10-29-2024 inject 1 mg by subcu taneous injection every week semaglutide (OZEMPIC) 1 mg/dose (4 mg/3 mL) pen Indications: Controlled type 2 diabetes mellitus without complication, without long-term current use of insulin (HCC) Inject 1 mg subcutaneously one time a week. 3 each 1 10/29/2024 Active Start: 08-31-2024 End: 10-28-2024 inject 1 mg by subcutaneous injection every week semaglutide (OZEMPIC) 1 mg/dose (4 mg/3 mL) pen Indications: Controlled type 2 diabetes mellitus without complication, without long-term current use of insulin (HCC) Inject 1 mg subcutaneously one time a week. 3 Each 1 08/31/2024 10/28/2024 Discontinued Start: 08-31-2024 inject 1 mg by subcu taneous injection every week semaglutide (OZEMPIC) 1 mg/dose (4 mg/3 mL) pen Indications: Controlled type 2 diabetes mellitus without complication, without long-term current use of insulin (HCC) Inject 1 mg subcutaneously one time a week. 3 Each 1 08/31/2024 Active Start: 07-29-2024 End: 08-31-2024 inject 1 mg by subcutaneous injection every week semaglutide (OZEMPIC) 1 mg/dose (4 mg/3 mL) pen Indications: Type 2 diabetes mellitus without complication, without long-term current use of insulin (HCC) Inject 1 mg subcutaneously one time a week. 3 Each 1 07/29/2024 08/31/2024 Discontinued Start: 07-29-2024 inject 1 mg by subcu taneous injection every week semaglutide (OZEMPIC) 1 mg/dose (4 mg/3 mL) pen Indications: Type 2 diabetes mellitus without complication, without long-term current use of insulin (HCC) Inject 1 mg subcutaneously one time a week. 3 Each 1 07/29/2024 Active Start: 06-07-2024 End: 07-28-2024 inject 1 mg by subcutaneous injection every week semaglutide (OZEMPIC) 1 mg/dose (4 mg/3 mL) pen Indications: Type 2 diabetes mellitus without complication, without long-term current use of insulin (HCC) Inject 1 mg subcutaneously one time a week. 3 Each 1 06/07/2024 07/28/2024 Discontinued Start: 06-07-2024 inject 1 mg by subcu taneous injection every week semaglutide (OZEMPIC) 1 mg/dose (4 mg/3 mL) pen Indications: Type 2 diabetes mellitus without complication, without long-term current use of insulin (HCC) Inject 1 mg subcutaneously one time a week. 3 Each 1 06/07/2024 Active Start: 03-16-2024 End: 06-07-2024 inject 1 mg by subcutaneous injection every week semaglutide (OZEMPIC) 1 mg/dose (4 mg/3 mL) pen Indications: Type 2 diabetes mellitus without complication, without long-term current use of insulin (HCC) Inject 1 mg subcutaneously one time a week. 3 Each 1 03/16/2024 06/07/2024 Discontinued Start: 03-16-2024 inject 1 mg by subcu taneous injection every week semaglutide (OZEMPIC) 1 mg/dose (4 mg/3 mL) pen Indications: Type 2 diabetes mellitus without complication, without long-term current use of insulin (HCC) Inject 1 mg subcutaneously one time a week. 3 Each 1 03/16/2024 Active Start: 03-02-2024 End: 03-16-2024 inject 1 mg by subcutaneous injection every week semaglutide (OZEMPIC) 1 mg/dose (4 mg/3 mL) pen Indications: Type 2 diabetes mellitus without complication, without long-term current use of insulin (HCC) Inject 1 mg subcutaneously one time a week. 3 Each 1 03/02/2024 03/16/2024 Discontinued Start: 03-02-2024 inject 1 mg by subcu taneous injection every week semaglutide (OZEMPIC) 1 mg/dose (4 mg/3 mL) pen Indications: Type 2 diabetes mellitus without complication, without long-term current use of insulin (HCC) Inject 1 mg subcutaneously one time a week. 3 Each 1 03/02/2024 Active Start: 08-29-2023 End: 03-02-2024 inject 1 mg by subcutaneous injection every week semaglutide (OZEMPIC) 1 mg/dose (4 mg/3 mL) pen Indications: Type 2 diabetes mellitus without complication, without long-term current use of insulin (HCC) Inject 1 mg subcutaneously one time a week. 3 Each 1 08/29/2023 03/02/2024 Discontinued Start: 08-29-2023 inject 1 mg by subcu taneous injection every week semaglutide (OZEMPIC) 1 mg/dose (4 mg/3 mL) pen Indications: Type 2 diabetes mellitus without complication, without long-term current use of insulin (HCC) Inject 1 mg subcutaneously one time a week. 3 Each 1 08/29/2023 Active Start: 06-04-2023 End: 08-29-2023 inject 1 mg by subcutaneous injection every week semaglutide (OZEMPIC) 1 mg/dose (4 mg/3 mL) pen Indications: Type 2 diabetes mellitus without complication, without long-term current use of insulin (HCC) Inject 1 mg subcutaneously one time a week. 3 Each 1 06/04/2023 08/29/2023 Discontinued Start: 06-04-2023 inject 1 mg by subcu taneous injection every week semaglutide (OZEMPIC) 1 mg/dose (4 mg/3 mL) pen Indications: Type 2 diabetes mellitus without complication, without long-term current use of insulin (HCC) Inject 1 mg subcutaneously one time a week. 3 Each 1 06/04/2023 Active Start: 05-30-2023 End: 06-04-2023 inject 1 mg by subcutaneous injection every week semaglutide (OZEMPIC) 1 mg/dose (4 mg/3 mL) pen Indications: Type 2 diabetes mellitus without complication, without long-term current use of insulin (HCC) Inject 1 mg subcutaneously one time a week. 1 Each 1 05/30/2023 06/04/2023 Discontinued Comment on above: Inject 1 mg subcutan eously one time a week. sertraline 50 mg oral tablet (20 sources) Serotonin Reuptake Inhibitor Start: 3 End: take 1 tablet by mouth once daily sertraline (ZOLOFT) 50 mg tablet Indications: Current moderate episode of major depressive disorder without prior episode (HCC) Take 1 tablet by mouth once daily. 90 tablet 1 11/20/2022 05/13/2023 Discontinued (Clinical Decision) Start: 07-30-2022 take 1 tablet by jose luis th once daily sertraline (ZOLOFT) 50 mg tablet Indications: Current moderate episode of major depressive disorder without prior episode (HCC) Take 1 tablet by mouth once daily. 30 tablet 2 07/30/2022 Active Comment on above: Take 1 tablet by jose luis th once daily. tadalafil 5 mg oral tablet (20 sources) Phosphodiesterase 5 Inhibitor Start: 08-11-19 24 End: 12-31-19 25 take 1 tablet by mouth once daily Tadalafil (CIALIS) 5 mg tablet Indications: Erectile dysfunction, unspecified erectile dysfunction type Take 1 tablet by mouth once daily. 90 tablet 1 12/30/2024 Active Start: 03-06-2023 take 1 tablet by jose luis th once daily Tadalafil (CIALIS) 5 mg tablet Indications: Erectile dysfunction, unspecified erectile dysfunction type Take 1 tablet by mouth once daily. 90 tablet 1 03/06/2023 Active Start: 01-17-2022 End: 09-16-2022 take 1 tablet by mouth once daily Tadalafil (CIALIS) 5 mg tablet Indications: Erectile dysfunction, unspecified erectile dysfunction type Take 1 tablet by mouth once daily. 90 tablet 1 09/17/2022 Active Start: 07-05-2021 take 1 tablet by jose luis th once daily Tadalafil (CIALIS) 5 mg tablet Indications: Erectile dysfunction, unspecified erectile dysfunction type Take 1 tablet by mouth once daily. 90 tablet 1 07/05/2021 Active Start: 02-29-2020 End: 10-09-2020 take 1 tablet by mouth once daily Tadalafil (CIALIS) 5 mg tablet Indications: Erectile dysfunction, unspecified erectile dysfunction type Take 1 tablet by mouth once daily. 90 tablet 1 02/29/2020 10/09/2020 Discontinued Comment on above: Take 1 tablet by jose luis th once daily. 1 ml testosterone cypionate 200 mg/ml injection (20 sources) Androgen Start: End: inject 1 mL by intramuscular injection every other week testosterone cypionate (DEPO-TESTOSTERONE) 200 mg/mL injection Indications: Hypogonadism in male Inject 1 mL intramuscularly every 2 weeks for 180 days. 6 mL 1 05/24/2024 Active Start: 10-13-2023 End: 04-11-2024 inject 1 mL by intramuscular injection every other week testosterone cypionate (DEPO-TESTOSTERONE) 200 mg/mL injection Indications: Hypogonadism in male Inject 1 mL intramuscularly every 2 weeks for 90 days. 6 mL 01/12/2024 Active Start: 04-14-2023 End: 07-13-2023 inject 1 mL by intramuscular injection every other week testosterone cypionate (DEPO-TESTOSTERONE) 200 mg/mL injection Indications: Hypogonadism in male Inject 1 mL intramuscularly every 2 weeks for 90 days. 6 mL 0 04/14/2023 Active Start: 07-30-2022 End: 02-18-2023 inject 1 mL by intramuscular injection every other week testosterone cypionate (DEPO-TESTOSTERONE) 200 mg/mL injection Indications: Hypogonadism in male Inject 1 mL intramuscularly every 2 weeks for 90 days. 6 mL 0 11/20/2022 Active Start: 09-06-2021 End: 07-30-2022 inject 2 mL by intramuscular injection every other week testosterone cypionate (DEPO-TESTOSTERONE) 200 mg/mL injection Indications: Hypogonadism in male Inject 2 mL intramuscularly every 2 weeks for 90 days. 12 mL 0 02/02/2022 07/30/2022 Discontinued Start: 07-16-2021 End: 09-06-2021 inject 1.5 mL by intramuscular injection every other week testosterone cypionate (DEPO-TESTOSTERONE) 200 mg/mL injection Indications: Hypogonadism in male Inject 1.5 mL intramuscularly every 2 weeks for 90 days. 3 mL 2 07/16/2021 07/16/2021 Discontinued Start: 06-29-2021 End: 07-16-2021 inject 200 mg by intramuscular injection every other week testosterone cypionate 200 mg/mL kit Indications: Hypogonadism in male Inject 200 mg intramuscularly every 2 weeks for 90 days. 6 Kit 0 06/29/2021 07/16/2021 Discontinued Start: 02-04-2020 End: 10-26-2020 inject 200 mg by intramuscular injection every other week testosterone cypionate 200 mg/mL kit Indications: Hypogonadism in male Inject 200 mg intramuscularly every 2 weeks for 180 days. 6 Kit 1 02/04/2020 10/26/2020 Discontinued Comment on above: Inject 2 mL intramus cularly every 2 weeks for 90 days. Inject 200 mg intram uscularly every 2 weeks for 90 days. Inject 1.5 mL intram uscularly every 2 weeks for 90 days. Inject 1 mL intramus cularly every 2 weeks for 90 days. Completed/Discontinued Medications Medication Drug Class(es) Dates Sig (Normalized) Sig (Original) acetaminophen 325 mg oral tablet (2 sources) Start: 08-20-2021 End: 09-12-2021 take 2 tablets by mouth every four hours acetaminophen (TYLENOL) 325 mg tablet Take 2 tablets by mouth every 4 hours while awake. after surgery on 08/21/21 until no longer needed. 0 08/20/2021 09/12/2021 Discontinued (Course of therapy completed) Comment on above: Take 2 tablets by mo uth every 4 hours while awake. after surgery on 08/21/21 until no longer needed. cephalexin 500 mg oral capsule (2 sources) Cephalosporin Antibacterial Start: 08-20-2021 End: 09-12-2021 take 1 capsule by mouth four times daily cephALEXin (KEFLEX) 500 mg capsule Take 1 capsule by mouth four times daily. 20 capsule 0 08/20/2021 09/12/2021 Discontinued (Course of therapy completed) Comment on above: Take 1 capsule by [facility] four times daily. cholecalciferol 1.25 mg oral capsule (9 sources) Vitamin D Start: 08-14-2022 End: 01-02-2023 take 1 capsule by mouth every week cholecalciferol, Vitamin D3, (VITAMIN D3) 1,250 mcg (50,000 unit) cap capsule Indications: Vitamin D deficiency Take 1 capsule by mouth one time a week. 12 capsule 0 08/14/2022 01/02/2023 Discontinued (Course of therapy completed) Comment on above: Take 1 capsule by [facility] one time a week. CPAP (20 sources) Start: 05-16-2021 End: 08-29-2023 CPAP Provide lifetime supplies for AutoPAP 8-15 cm H20 including nasal pillow mask, heated tubing, humidity, filters and fax download report to assess residual AHI to [phone]. Dx: G47.33 0 05/16/2021 08/29/2023 Discontinued Start: 05-16-2021 CPAP Provide l ifetime supplies for AutoPAP 8-15 cm H20 including nasal pillow mask, heated tubing, humidity, filters and fax download report to assess residual AHI to [phone]. Dx: G47.33 0 05/16/2021 Active Start: 03-16-2021 End: 01-02-2023 CPAP Increase autopap pressu re to 8-15 cm of water with humidification. Mask (per patient preference) optional chin strap (if indicated) , filters, tubing, humidifier and lifetime supplies. 1 Device 0 03/16/2021 01/02/2023 Discontinued (Duplicate Entry) Start: 03-16-2021 CPAP Increase autopap pressure to 8-15 cm of water with humidification. Mask (per patient preference) optional chin strap (if indicated) , filters, tubing, humidifier and lifetime supplies. 1 Device 0 03/16/2021 Active Comment on above: Increase autopap pre ssure to 8-15 cm of water with humidification. Mask (per patient preference) optional chin strap (if indicated) , filters, tubing, humidifier and lifetime supplies. Provide lifetime sup plies for AutoPAP 8-15 cm H20 including nasal pillow mask, heated tubing, humidity, filters and fax download report to assess residual AHI to [phone]. Dx: G47.33 CPAP/BIPAP/OTHER (20 sources) Start: 03-12-2024 End: 09-17-2024 CPAP/BIPAP/OTHER Type .CPAPSettings into a note to see current settings/supplies/DME information. 1 Each 03/12/2024 09/17/2024 Discontinued Start: 03-12-2024 End: 07-28-2051 CPAP/BIPAP/OTHER Type .CPAPS ettings into a note to see current settings/supplies/DME information. 1 Each 03/12/2024 07/28/2051 Active Start: 09-30-2022 End: 02-14-2050 CPAP/BIPAP/OTHER Indications : JOSÉ MIGUEL on CPAP Continue Auto CPAP with current settings of 8-15 cm H2O. Lifetime supplies for Auto CPAP, including patient preferred mask, head gear, heated tubing, humidity, filters, chin strap. Dx: Obstructive Sleep Apnea G47.33 DME: [facility] 1 Each 09/30/2022 02/14/2050 Active Start: 09-30-2022 End: 02-14-2050 CPAP/BIPAP/OTHER Indications : JOSÉ MIGUEL on CPAP Continue Auto CPAP with current settings of 8-15 cm H2O. Lifetime supplies for Auto CPAP, including patient preferred mask, head gear, heated tubing, humidity, filters, chin strap. Dx: Obstructive Sleep Apnea G47.33 DME: [facility] 1 Each 0 09/30/2022 02/14/2050 Active Comment on above: Continue Auto CPAP w ith current settings of 8-15 cm H2O. Lifetime supplies for Auto CPAP, including patient preferred mask, head gear, heated tubing, humidity, filters, chin strap. Dx: Obstructive Sleep Apnea G47.33 DME: [employer] [facility] cyclobenzaprine hydrochloride 10 mg oral tablet (20 sources) Muscle Relaxant Start: 10-31-19 End: 03-02-20 take 1 tablet by mouth three times daily as needed for muscle spasms cyclobenzaprine (FLEXERIL) 10 mg tablet Indications: Acute midline low back pain without sciatica Take 1 tablet by mouth three times a day as needed for muscle spasm. 15 tablet 11/18/2024 03/02/2025 Discontinued Start: 05-11-2023 End: 08-29-2023 take 1 tablet by mouth three times daily as needed for muscle spasms cyclobenzaprine (FLEXERIL) 10 mg tablet Indications: Back spasm Take 1 tablet by mouth three times a day as needed for muscle spasm. 30 tablet 0 05/11/2023 08/29/2023 Discontinued Start: 05-08-2020 End: 05-29-2020 take 1 tablet by mouth twice daily as needed for muscle spasms cyclobenzaprine (FLEXERIL) 10 mg tablet Indications: Cervical radiculopathy Take 1 tablet by mouth twice daily as needed for Muscle Spasm. 60 tablet 05/08/2020 05/29/2020 Discontinued (Course of therapy completed) Comment on above: Take 1 tablet by jose luis three times a day as needed for muscle spasm. ergocalciferol 1.25 mg oral capsule (20 sources) Provitamin D2 Compound Start: 08-21-19 End: 02-03-20 take 1 capsule by mouth two times weekly ergocalciferol 50,000 unit capsule (VITAMIN D2, DRISDOL) Take 1 capsule by mouth two times a week. on non-consecutive days 30 capsule 0 08/20/2021 02/02/2022 Discontinued Comment on above: Take 1 capsule by mo [facility] two times a week. on non-consecutive days flash glucose sensor (FREESTYLE KRYSTA 14 DAY SENSOR) kit (9 sources) Start: 03-26-20 End: 05-27-20 flash glucose sensor (FREESTYLE KRYSTA 14 DAY SENSOR) kit Indications: Diabetes mellitus type II (HCC) Check blood sugar twice daily 4 Each 1 03/26/2023 05/27/2023 Discontinued Start: 03-26-2023 flash glucose sensor (FREESTYLE KRYSTA 14 DAY SENSOR) kit Indications: Diabetes mellitus type II (HCC) Check blood sugar twice daily 4 Each 1 03/26/2023 Active Comment on above: Check blood sugar tw ice daily iv contrast (will be provided with radiology test) (3 sources) Start: 08-24-2021 End: 09-21-2021 iv contrast (will be provided with radiology test) CT Urogram WO/W Inject, intravenously, once for 1 dose.No IV access, insert saline lock prior to the beginning of sedation, infusion, injection of imaging exam. Discontinue saline lock post exam. If Pt. has a central line or IVAD, may access for administration according to line specific nursing protocol. Once exam is complete flush line and de-access according to line specific nursing protocol in the CT contrast administration guidelines link. 1 Each 0 08/24/2021 09/21/2021 Discontinued (Course of therapy completed) Start: 08-24-2021 iv contrast (w ill be provided with radiology test) CT Urogram WO/W Inject, intravenously, once for 1 dose.No IV access, insert saline lock prior to the beginning of sedation, infusion, injection of imaging exam. Discontinue saline lock post exam. If Pt. has a central line or IVAD, may access for administration according to line specific nursing protocol. Once exam is complete flush line and de-access according to line specific nursing protocol in the CT contrast administration guidelines link. 1 Each 0 08/24/2021 Active Comment on above: CT Urogram WO/W Inje ct, intravenously, once for 1 dose.No IV access, insert saline lock prior to the beginning of sedation, infusion, injection of imaging exam. Discontinue saline lock post exam. If Pt. has a central line or IVAD, may access for administration according to line specific nursing protocol. Once exam is complete flush line and de-access according to line specific nursing protocol in the CT contrast administration guidelines link. ketorolac tromethamine 10 mg oral tablet (2 sources) Nonsteroidal Anti-inflammatory Drug, Cyclooxygenase Inhibitor Start: End: take 1 tablet by mouth every six hours as needed keTORolac (TORADOL) 10 mg tablet Take 1 tablet by mouth every 6 hours as needed. for breakthrough postoperative pain after surgery on 08/21/21 20 tablet 0 08/20/2021 09/12/2021 Discontinued (Course of therapy completed) Comment on above: Take 1 tablet by jose luis th every 6 hours as needed. for breakthrough postoperative pain after surgery on 08/21/21 metFORMIN hydrochloride 500 mg oral tablet (13 sources) Biguanide Start: End: take 1 tablet by mouth twice daily at mealtime metFORMIN (GLUCOPHAGE) 500 mg tablet Indications: Diabetes mellitus type II (HCC) Take 1 tablet by mouth twice daily with meals. 180 tablet 1 11/20/2022 03/04/2023 Discontinued (Course of therapy completed) Start: 08-14-2022 End: 11-12-2022 take 1 tablet by mouth twice daily at mealtime metFORMIN (GLUCOPHAGE) 500 mg tablet Indications: Diabetes mellitus type II (HCC) Take 1 tablet by mouth twice daily with meals. 60 tablet 2 08/14/2022 11/12/2022 Active Comment on above: Take 1 tablet by jose luis twice daily with meals. 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 3.5 g 1 08/30/2022 01/02/2023 Discontinued (Course of therapy completed) Comment on above: Use 1 application in the left eye daily at bedtime. pregabalin 50 mg oral capsule (20 sources) Start: 12-13-2021 End: 02-02-2022 pregabalin (LYRICA) 50 mg capsule Indications: Restless legs syndrome (RLS) 2 capsule po bid x 2 weeks then 1 capsule po bid x 2 weeks then dc it 42 capsule 0 12/13/2021 02/02/2022 Discontinued Start: 10-25-2021 End: 01-23-2022 take 1 capsule by mouth twice daily pregabalin (LYRICA) 150 mg capsule Indications: Restless legs syndrome (RLS) Take 1 capsule by mouth twice daily for 90 days. 60 capsule 2 10/25/2021 01/23/2022 Active Start: 10-12-2021 End: 01-06-2022 pregabalin (LYRICA) 75 mg ca psule Indications: Restless legs syndrome (RLS) 1 cap at dinner, 2 caps before bed 90 capsule 2 10/16/2021 01/06/2022 Active Start: 09-25-2021 End: 12-24-2021 take 2 capsules by mouth once daily in the evening pregabalin (LYRICA) 75 mg capsule Indications: Restless legs syndrome (RLS) Take 2 capsules by mouth every evening for 90 days. And increase per physician instructions 60 capsule 2 09/25/2021 10/05/2021 Discontinued Start: 09-04-2021 End: 10-04-2021 take 1 capsule by mouth once daily in the evening pregabalin (LYRICA) 75 mg capsule Indications: Restless legs syndrome (RLS) Take 1 capsule by mouth every evening for 30 days. And increase per physician instructions 30 capsule 0 09/04/2021 09/25/2021 Discontinued Start: 02-07-2020 End: 03-23-2021 take 2 capsules by mouth twice daily pregabalin (LYRICA) 75 mg capsule Indications: Idiopathic progressive polyneuropathy Take 2 capsules by mouth twice daily for 180 days. 360 capsule 3 02/07/2020 03/23/2021 Discontinued Comment on above: Take 1 capsule by mo uth every evening for 30 days. And increase per physician instructions Take 2 capsules by m outh every evening for 90 days. And increase per physician instructions 1 cap at dinner, 2 c aps before bed Do not start before October 12, 2021. 1 cap at dinner, 2 c aps before bed Take 1 capsule by mo uth twice daily for 90 days. 2 capsule po bid x 2 weeks then 1 capsule po bid x 2 weeks then dc it 24 hr rotigotine 0.125 mg/hr transdermal system (1 source) Start: 020 End: 021 apply 1 dose transdermal route once daily rotigotine (NEUPRO) 3 mg/24 hour patch Apply 1 Patch as directed once daily. 90 Patch 3 12/28/2019 12/26/2020 Discontinued (Cost of medication) semaglutide (OZEMPIC) 0.25 mg or 0.5 mg (2 mg/3 mL) pen (15 sources) Start: 023 inject 0.5 mg by subcutaneous injection every week semaglutide (OZEMPIC) 0.25 mg or 0.5 mg (2 mg/3 mL) pen Indications: Type 2 diabetes mellitus without complication, without long-term current use of insulin (HCC) Inject 0.5 mg subcutaneously one time a week. 1 Each 1 04/14/2023 Active Start: 03-04-2023 End: 04-13-2023 semaglutide (OZEMPIC) 0.25 m g or 0.5 mg (2 mg/3 mL) pen Indications: Type 2 diabetes mellitus without complication, without long-term current use of insulin (HCC) Inject 0.25 mg subcutaneously one time a week. 1 Each 1 03/04/2023 04/13/2023 Discontinued Start: 03-04-2023 semaglutide (O ZEMPIC) 0.25 mg or 0.5 mg (2 mg/3 mL) pen Indications: Type 2 diabetes mellitus without complication, without long-term current use of insulin (HCC) Inject 0.25 mg subcutaneously one time a week. 1 Each 1 03/04/2023 Active Comment on above: Inject 0.25 mg subcu taneously one time a week. Inject 0.5 mg subcut aneously one time a week. Syringe with Needle, Disp, 3 mL 25 x 1 1/2 (20 sources) Start: 10-27-2020 End: 05-27-2023 Syringe with Needle, Disp, 3 mL 25 x 1 1/2 1 Each every 2 weeks. 6 Each 1 10/27/2020 05/27/2023 Discontinued Start: 10-27-2020 Syringe with N [place]edle, Disp, 3 mL 25 x 1 1/2 1 Each every 2 weeks. 6 Each 1 10/27/2020 Active Start: 11-16-2019 End: 08-22-2020 Syringe with Needle, Disp, 3 mL 25 x 1 1/2 1 Each every 2 weeks. 6 Each 1 11/16/2019 08/22/2020 Discontinued Comment on above: 1 Each every 2 weeks . triamcinolone acetonide 1 mg/ml topical cream (5 sources) Corticosteroid Start: 02-02-2022 End: 02-16-2022 triamcinolone acetonide (KENALOG) 0.1 % cream Apply 1 application to affected area twice daily for 14 days. Apply sparingly to area for rash/itching. 28.4 g 1 02/02/2022 02/16/2022 Comment on above: Apply 1 application to affected area twice daily for 14 days. Apply sparingly to area for rash/itching. Problems Active Problems Problem Classification Problem Date Documented Da te Episodic/Chronic Acute bronchitis (2 sources) Bronchiolitis; Translations: [Acute bronchiolitis, unspecified] 12-06-2023 Episodic Administrative/social admission (1 source) Dependent relative needing care at home; Translations: [Caregiver burden] Onset: 04-18-2025 Episodic Allergic reactions (1 source) Inflammatory dermatosis; Translations: [Dermatitis, unspecified] Episodic Conditions associated with dizziness or vertigo (1 source) Dizziness; Translations: [Dizziness and giddiness] 11-25-2023 Episodic Deficiency and other anemia (2 sources) Increased hemoglobin; Translations: [Other hemoglobinopathies] Chronic Deficiency and other anemia (2 sources) Iron deficiency anemia; Translations: [Iron deficiency anemia, unspecified] Episodic Deficiency and other anemia (1 source) Iron deficiency anemia, unspecified; Translations: [Iron deficiency anemia, unspecified iron deficiency anemia type] Onset: 08-02-2022 Episodic Diabetes mellitus without complication (20 sources) Type 2 diabetes mellitus; Translations: [Type 2 diabetes mellitus without complications] Onset: 08-14-2022 Chronic Diseases of mouth; excluding dental (1 source) Xerostomia; Translations: [Dry mouth, unspecified] 05-27-2023 Episodic Disorders of lipid metabolism (20 sources) Hypertriglyceridemia; Translations: [Pure hyperglyceridemia] Onset: 08-02-2019 08-02-2019 Chronic Essential hypertension (20 sources) Hypertensive disorder; Translations: [Essential (primary) hypertension] Onset: 08-02-2019 08-02-2019 Chronic Gastrointestinal hemorrhage (1 source) Rectal hemorrhage; Translations: [Hemorrhage of anus and rectum] 03-04-2023 Episodic Hemorrhoids (3 sources) Thrombosed hemorrhoids; Translations: [Perianal venous thrombosis] Episodic Hyperplasia of prostate (20 sources) Benign prostatic hyperplasia; Translations: [Benign prostatic hyperplasia without lower urinary tract symptoms] Onset: 08-02-2019 08-02-2019 Chronic Immunizations and screening for infectious disease (5 sources) Patient encounter status; Translations: [Encounter for immunization] Onset: 03-02-2025 03-04-2023 Episodic Mood disorders (15 sources) Moderate major depression, single episode; Translations: [Major depressive disorder, single episode, moderate] Onset: 11-02-2024 Chronic Mood disorders (1 source) Mood disorders; Translations: [Depression, unspecified depression type] Onset: 11-02-2024 Nausea and vomiting (2 sources) Nausea; Translations: [Nausea] 11-25-2023 Episodic Nonspecific chest pain (1 source) Chest pain; Translations: [Chest pain, unspecified] 03-02-2024 Episodic Nutritional deficiencies (1 source) Vitamin D deficiency; Translations: [Vitamin D deficiency, unspecified] Chronic Other aftercare (12 sources) Prescribed medication regimen behavior finding; Translations: [long term care social worker (current) use of opiate analgesic] Episodic Other aftercare (1 source) Admission statuses; Translations: [long term care social worker (current) use of opiate analgesic] 01-02-2023 Episodic Other aftercare (1 source) Other correction (current) drug therapy; Translations: [Medication management] Onset: 02-18-2025 Episodic Other and unspecified benign neoplasm (1 source) Lipoma of shoulder; Translations: [Benign lipomatous neoplasm of skin and subcutaneous tissue of right arm] 03-31-2023 Episodic Other and unspecified benign neoplasm (1 source) Benign lipomatous neoplasm of other sites; Translations: [Lipoma of other specified sites] Onset: 06-12-2023 Episodic Other bone disease and musculoskeletal deformities (20 sources) Posterior calcaneal exostosis; Translations: [Juvenile osteochondrosis of tarsus, left ankle] Onset: 07-27-2021 07-27-2021 Chronic Other bone disease and musculoskeletal deformities (1 source) Juvenile osteochondrosis of tarsus, left ankle; Translations: [Rg's deformity of left heel] Onset: 07-27-2021 Chronic Other connective tissue disease (3 sources) Pain in bilateral legs; Translations: [Pain in right leg] 03-02-2025 Episodic Other connective tissue disease (1 source) Pain in right leg; Translations: [Pain in both lower extremities] Onset: 03-02-2025 Episodic Other connective tissue disease (1 source) Pain in left leg; Translations: [Pain in both lower extremities] Onset: 03-02-2025 Episodic Other endocrine disorders (20 sources) Male hypogonadism; Translations: [Testicular hypofunction] 08-02-2019 Chronic Other gastrointestinal disorders (1 source) Constipation alternates with diarrhea; Translations: [Other specified symptoms and signs involving the digestive system and abdomen] 03-02-2024 Episodic Other hematologic conditions (1 source) Erythrocytosis; Translations: [Secondary polycythemia] Episodic Other hereditary and degenerative nervous system conditions (20 sources) Restless legs; Translations: [Restless legs syndrome] 07-06-2021 Chronic Other hereditary and degenerative nervous system conditions (2 sources) Restless legs syndrome; Translations: [Restless legs syndrome (RLS)] Onset: 07-06-2021 Chronic Other lower respiratory disease (2 sources) Calcified granuloma of lung; Translations: [Pulmonary fibrosis, unspecified] 12-25-2023 Chronic Other lower respiratory disease (9 sources) Multiple nodules of lung; Translations: [Other nonspecific abnormal finding of lung field] 12-06-2023 Episodic Other lower respiratory disease (2 sources) Standard chest X-ray abnormal; Translations: [Other nonspecific abnormal finding of lung field] 12-05-2023 Episodic Other lower respiratory disease (1 source) Calcified granuloma of lung; Translations: [Other disorders of lung] 09-01-2024 Episodic Other male genital disorders (20 sources) Male erectile dysfunction, unspecified; Translations: [Impotence of organic origin] 08-02-2019 Chronic Other nervous system disorders (20 sources) Idiopathic small fiber peripheral neuropathy; Translations: [Hereditary and idiopathic neuropathy, unspecified] Onset: 12-26-2020 12-26-2020 Chronic Other nervous system disorders (20 sources) Reversed sleep-wake cycle; Translations: [Circadian rhythm sleep disorder, shift work type] Onset: 12-26-2020 12-26-2020 Chronic Other nervous system disorders (1 source) Hereditary and idiopathic neuropathy, unspecified; Translations: [Idiopathic small fiber peripheral neuropathy] Onset: 12-26-2020 Chronic Other nervous system disorders (1 source) Narcolepsy without cataplexy ; 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] 03-12-2024 Chronic Other nervous system disorders (1 source) Neuropathy; Translations: [Polyneuropathy, unspecified] 09-17-2024 Chronic Other nervous system disorders (1 source) Polyneuropathy, unspecified; Translations: [Neuropathy] Onset: 09-17-2024 Chronic Other nervous system disorders (1 source) Paresthesia of skin; Translations: [Paresthesia of skin] Onset: 08-26-2022 Episodic Other nervous system disorders (1 source) Oswald's palsy; 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] Episodic Other nervous system disorders (1 source) Other acute postprocedural pain; Translations: [Postoperative pain] Onset: 06-12-2023 Episodic Other non-traumatic joint disorders (2 sources) Joint pain; Translations: [Pain in unspecified joint] Episodic Other non-traumatic joint disorders (3 sources) Hip pain; Translations: [Pain in right hip] 03-02-2025 Episodic Other non-traumatic joint disorders (1 source) Pain in right hip; Translations: [Bilateral hip pain] Onset: 03-02-2025 Episodic Other non-traumatic joint disorders (1 source) Pain in left hip; Translations: [Bilateral hip pain] Onset: 03-02-2025 Episodic Other nutritional; endocrine; and metabolic disorders (20 sources) Obese class II; Translations: [Obesity, unspecified] Onset: 12-26-2020 12-26-2020 Chronic Other nutritional; endocrine; and metabolic disorders (1 source) Obesity, unspecified; Translations: [Obesity, Class II, BMI 35-39.9] Onset: 12-26-2020 Chronic Other nutritional; endocrine; and metabolic disorders (20 sources) Obese class I; Translations: [Obesity, Class I, BMI 30-34.9] Onset: 07-22-2024 07-22-2024 Chronic Other screening for suspected conditions (not mental disorders or infectious disease) (2 sources) Imaging of thorax abnormal; Translations: [Abnormal findings on diagnostic imaging of other specified body structures] 11-26-2023 Chronic Other skin disorders (1 source) Mass of skin of back; Translations: [Localized swelling, mass and lump, trunk] 03-04-2023 Episodic Other skin disorders (2 sources) Excessive sweating; Translations: [Generalized hyperhidrosis] 11-25-2023 Episodic Other upper respiratory infections (1 source) Acute upper respiratory infection; Translations: [Acute upper respiratory infection, unspecified] 06-22-2024 Episodic Residual codes; unclassified (20 sources) Obstructive sleep apnea syndrome; Translations: [Obstructive sleep apnea (adult) (pediatric)] Onset: 12-26-2020 12-26-2020 Chronic Residual codes; unclassified (3 sources) Obstructive sleep apnea (adult) (pediatric); Translations: [JOSÉ MIGUEL on CPAP] Onset: 12-26-2020 Chronic Residual codes; unclassified (1 source) Dependence on other enabling machines and devices; Translations: [JOSÉ MIGUEL on CPAP] Onset: 12-26-2020 Chronic Substance-related disorders (2 sources) Continuous opioid dependence; Translations: [Opioid use, unspecified, uncomplicated] Onset: 02-18-2025 02-18-2025 Episodic Unclassified (1 source) Unknown / UNK(Unknown) Onset: 02-18-2017 Unclassified (1 source) Obesity, Class I, BMI 30-34.9; Translations: [Obesity, Class I, BMI 30-34.9] Onset: 07-22-2024 Unclassified (1 source) Acute midline low back pain without sciatica; Translations: [Acute midline low back pain without sciatica] Onset: 10-30-2024 Past or Other Problems Problem Classification Problem Date Documented Da te Episodic/Chronic Diabetes mellitus without complication (20 sources) Prediabetes; Translations: [Prediabetes] Resolved: 09-17-2024 08-11-2020 Episodic Genitourinary symptoms and ill-defined conditions (20 sources) Blood in urine; Translations: [Hematuria, unspecified] Onset: 08-15-2021 08-15-2021 Episodic Other aftercare (20 sources) Drug therapy finding; Translations: [Other correction (current) drug therapy] Onset: 12-26-2020 12-26-2020 Episodic Other aftercare (2 sources) long term care social worker (current) use of opiate analgesic; Translations: [Chronic use of opiate for therapeutic purpose] Onset: 01-30-2021 Episodic Other circulatory disease (20 sources) Air hunger; Translations: [Other specified symptoms and signs involving the circulatory and respiratory systems] Onset: 07-06-2021 07-06-2021 Episodic Other connective tissue disease (20 sources) Disorder of Achilles tendon; Translations: [Other specified disorders of synovium and tendon, other site] Onset: 07-27-2021 Episodic Other connective tissue disease (20 sources) Calcaneal spur of left foot; Translations: [Calcaneal spur, left foot] Onset: 07-27-2021 07-27-2021 Episodic Other connective tissue disease (1 source) Other specified disorders of synovium and tendon, other site; Translations: [Achilles tendinosis of left lower extremity] Onset: 07-27-2021 Episodic Other connective tissue disease (1 source) Calcaneal spur, left foot; Translations: [Calcaneal spur of left foot] Onset: 07-27-2021 Episodic Other gastrointestinal disorders (20 sources) Drug-induced constipation; Translations: [Drug induced constipation] Onset: 01-30-2021 01-30-2021 Episodic Other lower respiratory disease (2 sources) Other nonspecific abnormal finding of lung field; Translations: [Abnormal chest x-ray with multiple lung nodules] Onset: 12-05-2023 Episodic Other screening for suspected conditions (not mental disorders or infectious disease) (4 sources) Increased testosterone level; Translations: [Other specified abnormal findings of blood chemistry] Onset: 08-31-2024 Episodic Residual codes; unclassified (20 sources) History of orthopedic surgery; Translations: [Other specified postprocedural states] Onset: 12-20-2021 Episodic Residual codes; unclassified (3 sources) Other specified health status; Translations: [Other specified conditions influencing health status] Onset: 11-01-2024 01-02-2023 Episodic Spondylosis; intervertebral disc disorders; other back problems (20 sources) Brachial neuritis; Translations: [Radiculopathy, cervical region] Onset: 05-10-2020 05-10-2020 Episodic Unclassified (1 source) 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 Onset: 02-18-2017 Results Test Name Value Interpretation Reference Range Facility CBC panel Auto (Bld)on 03-03 Erythrocyte distribution width (RBC) [Ratio] 12.7 % Normal 11.5-15.0 [facility] Comment on above: Order Comment: Speci men Type: BLOOD SPECIMENOrdering Facility: [facility] Address: [address] [place] [address] Performed By: #### 5 8410-2 ####[facility] LABCLIA [id number] [place] [address] [place] Hematocrit (Bld) [Volume fraction] 44.7 % Normal 39.0-51.0 [facility] Comment on above: Order Comment: Speci men Type: BLOOD SPECIMENOrdering Facility: [facility] Address: [address] [place] [address] Performed By: #### 5 8410-2 ####[facility] LABCLIA [id number] [place] [address] [place] Hemoglobin (Bld) [Mass/Vol] 15.8 g/dL Normal 13.0-17.0 [facility] Comment on above: Order Comment: Speci men Type: BLOOD SPECIMENOrdering Facility: [facility] Address: [address] [place] [address] Performed By: #### 5 8410-2 ####[facility] LABIA [id number] [place] [address] [place] MCH (RBC) [Entitic mass] 31.8 pg Normal 26.0-34.0 [facility] Comment on above: Order Comment: Speci men Type: BLOOD SPECIMENOrdering Facility: [facility] Address: [address] [place] [address] Performed By: #### 5 8410-2 ####[facility] LABIA [id number] [address] [place] MCHC (RBC) [Mass/Vol] 35.3 g/dL Normal 30.5-36.0 [facility] Comment on above: Order Comment: Speci men Type: BLOOD SPECIMENOrdering Facility: [facility] Address: [address] [place] [address] Performed By: #### 5 8410-2 ####[facility] LABIA [id number] [place] [address] [place] MCV (RBC) [Entitic vol] 89.9 fL Normal 80.0-100.0 [facility] Comment on above: Order Comment: Speci men Type: BLOOD SPECIMENOrdering Facility: [facility] Address: [address] [place] [address] Performed By: #### 5 8410-2 ####[facility] LABCLIA [id number] [place] [address] [place] Nucleated RBC (Bld) [#/Vol] 10*3/uL Normal <0.01 [facility] Comment on above: Order Comment: Speci men Type: BLOOD SPECIMENOrdering Facility: [facility] Address: [address] [place] [address] Performed By: #### 5 8410-2 ####[facility] LABCLIA [id number] [place] [address] [place] Platelet mean volume (Bld) [Entitic vol] 9.2 fL Normal 9.0-12.7 [facility] Comment on above: Order Comment: Speci men Type: BLOOD SPECIMENOrdering Facility: [facility] Address: [address] [place] [address] Performed By: #### 5 8410-2 ####[facility] LABIA [id number] [place] [address] [place] Platelets (Bld) [#/Vol] 234 10*3/uL Normal 150-400 [facility] Comment on above: Order Comment: Speci men Type: BLOOD SPECIMENOrdering Facility: [facility] Address: [address] [place] [address] Performed By: #### 5 8410-2 ####[facility] LABIA [id number] [place] [address] [place] RBC (Bld) [#/Vol] 4.97 10*6/uL Normal 4.20-6.00 [facility] Comment on above: Order Comment: Speci men Type: BLOOD SPECIMENOrdering Facility: [facility] Address: [address] [place] [address] Performed By: #### 5 8410-2 ####[facility] LABCLIA [id number] [place] [address] [place] WBC (Bld) [#/Vol] 6.82 10*3/uL Normal 3.70-11.00 [facility] Comment on above: Order Comment: Speci men Type: BLOOD SPECIMENOrdering Facility: [facility] Address: [address] [place] [address] Performed By: #### 5 8410-2 ####[facility] SIENNA [id number] HINA PARRA [id number] [place], [place] [address] [facility] CNOVon 03-03-2025 CNOV Office Visit (SLEWST ) NANCY ENAMORADO ([id number]) 1970 M Date Time Provider Department 03/03/25 10:30 AM FRANK LAL During your visit today, we recorded the following information about you: Pulse Respiration Blood pressure Weight 70/minute 16/minute 119/79 115.2 kg Frank Lal APRN.STOGY ROLLER 03/03/2025 2:59 PM Signed [facility] Follow up/ Established patient visit Recording using ambient [employer] software for draft documentation of the visit was discussed with the patient/authorized customer response representative; all questions welcomed and answered. 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 The RLS is controlled. No AE. The risks, benefits and common adverse events were reviewed with the patient and they appear to understand. The patient may review the pharmacy drug information sheet and is welcome to review the entire product information sheet from the strategic marketing specialist. I would be happy to review any questions they have after review of that detailed FDA approved medical information. I, our STATISTICAL PROGRAMMER ANALYST and administrative staff will all continue to monitor the [place] Automated Rx Reporting System (OARRS) on a regular basis and document that it has been reviewed and that the patient is not obtaining controlled substances from another provider. Random drug screens may be given depending on the case. I would like for you to follow up with one of my collaborating Sleep Medicine Advance Practice Providers such as Vaishali Ojeda or BATSHEVA Harris n approximately 90 days. It was a pleasure visiting with you today in the [facility]. It is an honor and privilege to help you with your medical care. Remember to follow up with your other medical specialists and your primary care provider. If you have any further questions for me regarding the diagnosis or recommendations today, please do not hesitate to send us a Dat[employer] message or call my collaborating Section Laborer nurse Ambrose RN, BSN at [phone] Extension #[phone]. I spent a total time of over 20 minutes on the date of the service on this case. This included preparing to see the patient by reviewing the medical record prior to examining the patient (known as Pre Charting), interviewing the patient face to face in the clinic or virtually via audio and video secure [facility] technology, ordering appropriate medications/tests/procedure s, completing clinical documentation of the visit, counseling and educating the patient/family/caregiver, communicating with other health care providers as well as general care coordination. Jaden Man DO, CBSM, ABSM CURRENT VISIT: 03/03/2025 The patient is a 54-year-old male with a history of RLS and JOSÉ MIGUEL, presenting with worsening RLS symptoms. He is here for his routine [id number] appt for methadone refill for RLS treatment. The patient reports a recent exacerbation of RLS symptoms, which have been well-controlled with methadone 7.5 mg nightly. No adverse effects. Usually only has sxs 2x per year on methadone. The patient notes that the symptoms worsened over the past week, coinciding with a break from his usual work schedule of 6 days a week, 12-13 hour days. He speculates that the change in routine may be contributing to the increased symptoms. The patient denies any changes in methadone dosage or other medications, except for the recent addition of naproxen for leg pain. He also reports taking up to 2000 mg of ibuprofen daily for pain management (until switched to naproxen). The patient describes the recent RLS episodes as severe, likening them to a panic attack. He notes that the symptoms were particularly bad on two consecutive nights and even prevented him from taking a nap. However, he reports that the symptoms were back to normal last night. The patient's has been providing sensory stimulation by lightly scratching his lower back, which he finds helpful in managing the symptoms. No hx of JULIANNA or low iron stores. The patient also reports experiencing vivid nightmares, which he attributes to stress and inconsistent use of his CPAP machine for JOSÉ MIGUEL. He admits to poor compliance with the CPAP, stating that he sleeps better witho (more content not included)... Normal [facility] Ferritin [Mass/Vol] 285.0 ng/mL Normal 30.3-565.7 [facility] Comment on above: Order Comment: Specaretha tang Type: BLOOD SPECIMEN Ordering Facility: [facility] Address: [address] [place] [address] Performed By: #### 2 276-4, 56996-4 #### [facility] CLIA [id number] [address] [place] [address] [place] Iron and Iron binding capaci [facility] 03-03-2025 Iron [Mass/Vol] 46 ug/dL Normal 41-186 [facility] Comment on above: Order Comment: Keven tang Type: BLOOD SPECIMEN Ordering Facility: [facility] Address: [address] [place] [address] Performed By: #### 2 276-4, 29684-9 #### [facility] CLIA [id number] [address] [place] [address] [place] Iron binding capacity [Mass/Vol] 247 ug/dL Normal 232-386 [facility] Comment on above: Order Comment: Keven tang Type: BLOOD SPECIMEN Ordering Facility: [facility] Address: [address] [place] [address] Performed By: #### 2 276-4, 91780-3 #### [facility] CLIA [id number] [address] [id number] [address] [place] Iron/TIBC [Molar ratio] 18.6 % Normal 15.0-57.0 [facility] Comment on above: Order Comment: Keven tang Type: BLOOD SPECIMEN Ordering Facility: [facility] Address: [address] [place] [address] Performed By: #### 2 276-4, 35823-4 #### [facility] CLIA [id number] [address] [place] [address] [place] ALBUMIN/CREATININE RATIO, UR INEon 03-02-2025 Albumin DL <= 20 mg/L (U) [Mass/Vol] 21.3 mg/L Normal [facility] Comment on above: Order Comment: Keven tang Type: BLOOD SPECIMEN Ordering Facility: [facility] Address: [address] [place] [address] Performed By: #### 2 276-4, 30402-7 #### [facility] CLIA [id number] [address] [place] [address] [place] Albumin/Creatinine (U) [Mass ratio] 4 mg/g Normal <30 [facility] Comment on above: Order Comment: Keven tang Type: BLOOD SPECIMEN Ordering Facility: [facility] Address: [address] [place] [address] Result Comment: Adul t Male and Female Nephrotic Criteria: <30 mg/g is considered normal to mildly increased 30-300 mg/g is considered moderately increased >300 mg/g is considered severely increased KDIGO. (2013). KDIGO 2012 Clinical Practice Guideline for the Evaluation and Management of Chronic Kidney Disease. Official Journal of the International Society of Nephrology, 3(1), 1-150. Performed By: #### 2 276-4, 24952-7 #### [facility] CLIA [id number] [address] [place] [address] [place] Creatinine (U) [Mass/Vol] 538.7 mg/dL High 20.0-300.0 [facility] Comment on above: Order Comment: Keven tang Type: BLOOD SPECIMEN Ordering Facility: [facility] Address: [address] [place] [address] Performed By: #### 2 276-4, 33456-3 #### [facility] CLIA [id number] [address] [place] [address] [place] [address] [place] CNOVon 03-02-2025 CNOV Office Visit (FAMPWS ) NANCY ENAMORADO ([id number]) 1970 M Date Time Provider Department 03/02/25 11:00 AM [facility] During your visit today, we recorded the following information about you: Pulse Blood pressure Weight Height 79/minute 103/69 114.1 kg 1.829 m Chayo Hickey MD 03/02/2025 11:33 AM Signed Chief Complaint Patient presents with: 6 Month Exam Pain: Aching from waist down. Ongoing for a few months. Taking excessive amounts of Ibuprofen to keep pain under control. Has access to PT at his work and when he saw PT they noticed a lot of cracking and popping noises in his hips and knees. Recording using [employer] software for draft documentation of the visit was discussed with the patient/authorized customer response representative; all questions welcomed and answered. Patient/authorized customer response representative agreed to proceed HPI Nancy Enamorado is a 54 year old male who presents here today for Above Complaints. Annual Wellness Exam: - Steve Enamorado desires flu vaccination today. Diabetes Mellitus: - Steve's blood glucose levels consistently in the low 100s. - Steve experienced one episode of hypoglycemia with blood glucose in the 80s. - No recent A1c testing. Bilateral Hip and Leg Pain: - Onset a few months ago, described by Steve as a toothache sensation in the bones. - Pain is constant, rated 3/10 at rest and 6-7/10 with movement. - Pain localized to Steve's hips, knees, and lower legs; not specific to one side or back of the leg. - Aggravated by getting up from a seated position, getting out of the car, and certain movements. - Alleviated somewhat by movement but never completely resolves. - No known trauma or injury preceding the pain. - Steve denies lower back pain, numbness, tingling, or weakness in the legs. - No loss of bowel or bladder control. - Steve denies numbness in the groin. - No pain in the neck or shoulders. - Steve denies pain in the calves or cramps when walking distances. - Steve denies joints appearing red, hot, or swollen. - Steve has tried ibuprofen and Aleve with minimal relief. - Steve has seen a chiropractor without improvement. - Steve has access to a physical therapist at work but has not engaged in formal physical therapy sessions. Past medical history, appointments, medications, allergies reviewed. Previous Medical History PAST MEDICAL HISTORY Diagnosis Date Achilles tendinosis of left lower extremity s/p repair BPH (benign prostatic hyperplasia) Diabetes mellitus type II (HCC) Erectile dysfunction Heel spur, left Hypertension Hypertriglyceridemia Hypogonadism in male Idiopathic neuropathy Lipoma of right shoulder 05/2023 JOSÉ MIGUEL (obstructive sleep apnea) 08/2020 RLS (restless legs syndrome) Dr Man Thrombosed hemorrhoids 11/2021 Vitamin D deficiency Previous Surgical History PAST SURGICAL HISTORY Procedure Laterality Date APPENDECTOMY ARTHROSCOPY KNEE DIAGNOSTIC W/WO SYNOVIAL BX SPX Left Arthroscopy, knee BX OF BREAST; INCISIONAL Right 06/12/2023 right posterior shoulder by Dr. Ball CHOLECYSTECTOMY HX HERNIA REPAIR HX Bilateral inguinal hernia, congenital NEUROPLASTY AND/TRANSPOS MEDIAN NRV CARPAL TUNNE Carpal tunnel decomp bilateral PAST SURGICAL HISTORY OF 07/30/2019 repair bone spur achilles left foot PAST SURGICAL HISTORY OF Left 08/21/2021 achilles tendon repair PAST SURGICAL HISTORY OF 12/05/2021 hemorrhoidectomy PAST SURGICAL HISTORY OF 06/12/2023 right shoulder lipoma removed SKIN BIOPSY HX TONSILLECTOMY HX TONSILLECTOMY PRIMARY/SECONDARY Tonsillectomy Family History FAMILY HISTORY Problem Relation Age of Onset COPD Mother Cancer Mother lung Heart disease Father Cancer Father lung, liver, kidney, colon Depression Father Anxiety disorder Father other (cancer) Father Psychiatry Brother Cancer Brother Multiple Sclerosis Daughter other (apraxia) Son Heart disease Maternal Grandmother Heart disease Maternal Grandfather Heart disease Paternal Grandmother Heart disease Paternal Grandfather Patient Allergies ALLERGIES Allergen Reactions Metformin Intolerance Muscle aches, increase stool Current Medications Current Outpatient Medications on File Prior to Visit Medication Sig atorvastatin (LIPITOR) 20 mg tablet Take 1 tablet by mouth daily at bedtime. For cholesterol. methadone (DOLOPHINE) 5 mg tablet Take 1.5 tablets by mouth every evening for 30 days. semaglutide (OZEMPIC) 1 mg/dose (4 mg/3 mL) pen Inject 1 mg subcutaneously one time a week. Tadalafil (CIALIS) 5 mg tablet Take 1 tablet by mouth once daily. buPROPion XL (WELLBUTRIN XL) 150 mg 24 hr tablet Take 1 tablet by mouth once daily. lisinopril-hydroCHLOROthiaz kevin (ZESTORETIC) 20-12.5 mg per tablet Take 2 tablets by mouth once daily. testosterone cypionate (DEPO-TESTOSTERONE) 200 mg/mL i (more content not included)... Normal [facility] Comprehensive metabolic 2000 panelon 03-02-2025 Albumin [Mass/Vol] 4.4 g/dL Normal 3.9-4.9 [facility] Comment on above: Order Comment: Speci men Type: BLOOD SPECIMENOrdering Facility: [facility] Address: [address] [place] [address] Performed By: #### 2 4323-8 ####[facility] LABCLIA [id number] [place] [address] [place] ALP [Catalytic activity/Vol] 83 U/L Normal 38-113 [facility] Comment on above: Order Comment: Speci men Type: BLOOD SPECIMENOrdering Facility: [facility] Address: [address] [place] [address] Performed By: #### 2 4323-8 ####[facility] LABCLIA [id number] [place] [address] [place] ALT [Catalytic activity/Vol] 30 U/L Normal 10-54 [facility] Comment on above: Order Comment: Speci men Type: BLOOD SPECIMENOrdering Facility: [facility] Address: [address] [place] [address] Performed By: #### 2 4323-8 ####[facility] LABCLIA [id number] [address] [address] [place] Anion gap [Moles/Vol] 14 mmol/L Normal 8-15 [facility] Comment on above: Order Comment: Speci men Type: BLOOD SPECIMENOrdering Facility: [facility] Address: [address] [place] [address] Performed By: #### 2 4323-8 ####[facility] LABCLIA [id number] [place] [id number] [place] AST [Catalytic activity/Vol] 22 U/L Normal 14-40 [facility] Comment on above: Order Comment: Speci men Type: BLOOD SPECIMENOrdering Facility: [facility] Address: [address] [place] [address] Performed By: #### 2 4323-8 ####[facility] LABCLIA [id number] [place] [address] [place] Bilirubin [Mass/Vol] 0.6 mg/dL Normal 0.2-1.3 [facility] Comment on above: Order Comment: Speci men Type: BLOOD SPECIMENOrdering Facility: [facility] Address: [address] [place] [address] Performed By: #### 2 4323-8 ####[facility] LABCLIA [id number] [place] [id number] [place] Calcium [Mass/Vol] 9.7 mg/dL Normal 8.5-10.2 [facility] Comment on above: Order Comment: Speci men Type: BLOOD SPECIMENOrdering Facility: [facility] Address: [address] [place] [address] Performed By: #### 2 4323-8 ####[facility] LABCLIA [id number] [address] [address] [place] Chloride [Moles/Vol] 100 mmol/L Normal 98-107 [facility] Comment on above: Order Comment: Speci men Type: BLOOD SPECIMENOrdering Facility: [facility] Address: [address] [place] [address] Performed By: #### 2 4323-8 ####[facility] LABCLIA [id number] [address] [address] [place] CO2 [Moles/Vol] 25 mmol/L Normal 22-30 [facility] Comment on above: Order Comment: Speci men Type: BLOOD SPECIMENOrdering Facility: [facility] Address: [address] [place] [address] Performed By: #### 2 4323-8 ####[facility] LABIA [id number] [address] STATES OF [facility] Creatinine [Mass/Vol] 1.13 mg/dL Normal 0.73-1.22 [facility] Comment on above: Order Comment: Speci men Type: BLOOD SPECIMENOrdering Facility: [facility] Address: [address] [place] [address] Performed By: #### 2 4323-8 ####[facility] LABIA [id number] [address] [place] eGFRcr SerPlBld CKD-EPI 2020 77 mL/min/1.73m??? Normal >=60 [facility] Comment on above: Order Comment: Speci men Type: BLOOD SPECIMENOrdering Facility: [facility] Address: [address] [place] [address] Result Comment: Sandy mated Glomerular Filtration Rate (eGFR) is calculated using the 2020 CKD-EPI creatinine equation. This equation utilizes serum creatinine, sex, and age as parameters. The creatinine assay has traceable calibration to isotope dilution-mass spectrometry. Refer to KDIGO guidelines for clinical interpretation. In patients with unstable renal function, e.g. those with acute kidney injury, the eGFR may not accurately reflect actual GFR. Performed By: #### 2 4323-8 ####[facility] LABCLIA [id number] [address] [address] [place] Glucose [Mass/Vol] 80 mg/dL Normal 74-99 [facility] Comment on above: Order Comment: Speci men Type: BLOOD SPECIMENOrdering Facility: [facility] Address: [address] [place] [address] Result Comment: The Citizen [place] Diabetes Association (ADA) provides guidance for cutoff values for fasting glucose and random glucose. The ADA defines fasting as no caloric intake for at least 8 hours. Fasting plasma glucose results between 100 to 125 mg/dL indicate increased risk for diabetes (prediabetes). Fasting plasma glucose results greater than or equal to 126 mg/dL meet the criteria for diagnosis of diabetes. In the absence of unequivocal hyperglycemia, results should be confirmed by repeat testing. In a patient with classic symptoms of hyperglycemia or hyperglycemic crisis, random plasma glucose results greater than or equal to 200 mg/dL meet the criteria for diagnosis of diabetes. Reference: Standards of Medical Care in Diabetes 2016, Citizen [place] Diabetes Association. Diabetes Care. 2016.39(Suppl 1). Performed By: #### 2 4323-8 ####[facility] LABIA [id number] [place] [id number] [place] Potassium [Moles/Vol] 3.9 mmol/L Normal 3.7-5.1 [facility] Comment on above: Order Comment: Josefi men Type: BLOOD SPECIMENOrdering Facility: [facility] Address: [address] [place] [address] Performed By: #### 2 4323-8 ####[facility] LABCLIA [id number] [place] [id number] [place] Protein [Mass/Vol] 7.5 g/dL Normal 6.3-8.0 [facility] Comment on above: Order Comment: Speci men Type: BLOOD SPECIMENOrdering Facility: [facility] Address: [address] [place], [place] [address] Performed By: #### 2 4323-8 ####[facility] LABCLIA [id number] [place] [address] [place] Sodium [Moles/Vol] 139 mmol/L Normal 136-144 [facility] Comment on above: Order Comment: Speci men Type: BLOOD SPECIMENOrdering Facility: [facility] Address: [address] [place] [address] Performed By: #### 2 4323-8 ####[facility] LABCLIA [id number] [address] [address] [place] Urea nitrogen [Mass/Vol] 15 mg/dL Normal 9-24 [facility] Comment on above: Order Comment: Speci men Type: BLOOD SPECIMENOrdering Facility: [facility] Address: [address] [place] [address] Performed By: #### 2 4323-8 ####[facility] LABIA [id number] [address] [address] [place] HbA1c (Bld)on 03-02-2025 Average glucose Estimated from glycated hemoglobin (Bld) [Mass/Vol] 108 mg/dL Normal [facility] Comment on above: Order Comment: Speci men Type: BLOOD SPECIMENOrdering Facility: [facility] Address: [address] [place] [address] Result Comment: eAG: (Estimated average glucose) is a calculated value from HgbA1c and is customer response representative of the average blood glucose level in the last 2-3 month period. Performed By: #### 5 5454-3 ####[facility] LABIA [id number] [place] [address] [place] HbA1c (Bld) [Mass fraction] 5.4 % Normal 4.3-5.6 [facility] Comment on above: Order Comment: Speci men Type: BLOOD SPECIMENOrdering Facility: [facility] Address: [address] [place] [address] Result Comment: Amer [place] Diabetes Association guidelines indicate that patients with HgbA1c in the range 5.7-6.4% are at increased risk for development of diabetes, and intervention by lifestyle modification may be beneficial. HgbA1c greater or equal to 6.5% is considered diagnostic of diabetes. Performed By: #### 5 5454-3 ####[facility] LABCLIA [id number] [facility] ERBrandin [id number] [place] [address] [place] XR LUMBAR 3V AP/LAT/L5-S1on 03-02-2025 XR LUMBAR 3V AP/LAT/L5-S1 * * *Final Report* * * DATE OF EXAM: Mar 02 2025 12:01PM WOX [id number] - XR LUMBAR 3V AP/LAT/L5-S1 / PROCEDURE REASON: multiple diagnoses * * * * Physician Interpretation * * * * HISTORY: Chronic bilateral hip pain, pain in both lower extremities. no known injury.. Bilateral hip pain Bilateral hip pain Pain in both lower extremities Pain in both lower extremities. TECHNIQUE: XR LUMBAR 3V AP/LAT/L5-S1 COMPARISON: Chest CT from 08/31/2024 RESULT: Counting reference: Lumbosacral junction. For the purposes of this report, L4-5 is considered the level of the iliac crest and assume there are 5 lumbar-type vertebrae. Anatomic variant: None. Lumbar spine: There is no evidence of fracture or acute vertebral compression. Stable minimal volume loss of L1. Degenerative changes include mild disc height loss at L1-L2, L2-L3, and L5-S1 along with multilevel facet arthritis. There are clips in the right upper abdomen. There are calcified splenic granulomata. - IMPRESSION: No acute findings. Degenerative changes. Veneer Stapler: MIRELLA Transcribe Date/Time: Mar 09 2025 5:01P Dictated by : MATHEW MAYNARD MD This examination was interpreted and the report reviewed and electronically signed by: MATHEW MAYNARD MD on Mar 09 2025 5:02PM EST [id number] Normal [facility] QUANT TOX PANELon 02-18-2025 9-Vnldqxyqvs-1,5-Dimet hyl-3,3-Diphenylpyrrol idine (EDDP) Confirm (U) [Mass/Vol] 710 ng/mL High <25 [facility] Comment on above: Order Comment: Speci men Type: URINE SPECIMENOrdering Facility: [facility] Address: [address] [place] [address] Result Comment: 5-Lbnzbofmpe-7,9-zgabksre-2,3-diphenylpyrrolidine (EDDP) is a metabolite of methadone. Presence of EDDP is consistent with use of a methadone-containing drug. Performed By: #### U QNTX ####[facility] [id number] [place] [address] [place] 6-Monoacetylmorphine (6-HARESH) (U) [Mass/Vol] <5 Normal <5 [facility] Comment on above: Order Comment: Speci men Type: URINE SPECIMENOrdering Facility: [facility] Address: [address] [place] [address] Result Comment: 6-Mo noacetylmorphine is a metabolite of heroin. Performed By: #### U QNTX ####[facility] [id number] [place] [address] [place] Amphetamine Confirm (U) [Mass/Vol] <25 Normal <25 [facility] Comment on above: Order Comment: Speci men Type: URINE SPECIMENOrdering Facility: [facility] Address: [address] [place] [address] Result Comment: Meth ylphenidate does not contain or metabolize to amphetamine. Performed By: #### U QNTX ####[facility] [id number] [place] [address] [place] Benzoylecgonine Confirm (U) [Mass/Vol] <25 Normal <25 [facility] Comment on above: Order Comment: Speci men Type: URINE SPECIMENOrdering Facility: [facility] Address: [address] [place] [address] Result Comment: Jerod oylecgonine is a metabolite of cocaine. Performed By: #### U QNTX ####[facility] [id number] [place] [address] [place] Buprenorphine (U) [Mass/Vol] <5 Normal <5 [facility] Comment on above: Order Comment: Speci men Type: URINE SPECIMENOrdering Facility: [facility] Address: [address] [place] [address] Result Comment: Yaquelin ents using transdermal formulations of buprenorphine may yield undetectable buprenorphine and norbuprenorphine urine concentrations. Performed By: #### U QNTX ####[facility] LABIA [id number] [place] [address] [place] Carboxy tetrahydrocannabinol (U) [Mass/Vol] <10 Normal <10 [facility] Comment on above: Order Comment: Speci men Type: URINE SPECIMENOrdering Facility: [facility] Address: [address] [place] [address] Result Comment: 11-N qb-4-vnvviab-tetrahydrocannabinol (pyftk-5-ltdwovq-THC) is a metabolite of rqfca-1-kbeqljmptrczmyqxwvef (THC). This test does not differentiate between delta-8 or delta-9 carboxy-THC. Performed By: #### U QNTX ####[facility] LABIA [id number] [place] [address] [place] Codeine Confirm (U) [Mass/Vol] <25 Normal <25 [facility] Comment on above: Order Comment: Speci men Type: URINE SPECIMENOrdering Facility: [facility] Address: [address] [place] [address] Performed By: #### U QNTX ####[facility] LABIA [id number] [place] [address] [place] fentaNYL Confirm (U) [Mass/Vol] <1 Normal <1 [facility] Comment on above: Order Comment: Speci men Type: URINE SPECIMENOrdering Facility: [facility] Address: [address] [place] [address] Performed By: #### U QNTX ####[facility] LABIA [id number] [place] [address] [place] HYDROcodone Confirm (U) [Mass/Vol] <25 Normal <25 [facility] Comment on above: Order Comment: Speci men Type: URINE SPECIMENOrdering Facility: [facility] Address: [address] [place] [address] Performed By: #### U QNTX ####[facility] [id number] [place] [address] [place] HYDROmorphone Confirm (U) [Mass/Vol] <25 Normal <25 [facility] Comment on above: Order Comment: Speci men Type: URINE SPECIMENOrdering Facility: [facility] Address: [address] [place] [address] Performed By: #### U QNTX ####[facility] [id number] [place] [address] [place] MDA, UR <25 Normal <25 [facility] Comment on above: Order Comment: Speci men Type: URINE SPECIMENOrdering Facility: [facility] Address: [address] [place] [address] Result Comment: 3,4 Methylenedioxyamphetamine is also known as MDA. Performed By: #### U QNTX ####[facility] [id number] [place] [address] [place] MDEA, UR <25 Normal <25 [facility] Comment on above: Order Comment: Speci men Type: URINE SPECIMENOrdering Facility: [facility] Address: [address] [place] [address] Result Comment: 3,4 Hffbghkujdovct-C-soxavilwdndenbod is also known as MDEA. Performed By: #### U QNTX ####[facility] [id number] [place] [address] [place] MDMA, UR <25 Normal <25 [facility] Comment on above: Order Comment: Speci men Type: URINE SPECIMENOrdering Facility: [facility] Address: [address] [place] [address] Result Comment: 3,4- Methylenedioxymethamphetamine is also known as MDMA. Performed By: #### U QNTX ####[facility] LABIA [id number] [place] [address] [place] Methadone Confirm (U) [Mass/Vol] 218 ng/mL High <25 [facility] Comment on above: Order Comment: Speci men Type: URINE SPECIMENOrdering Facility: [facility] Address: [address] [place] [address] Result Comment: Pres ence of methadone is consistent with use of a methadone-containing drug. Methadone is metabolized to EDDP. Performed By: #### U QNTX ####[facility] LABIA [id number] [place] [address] [place] Methamphetamine Confirm (U) [Mass/Vol] <25 Normal <25 [facility] Comment on above: Order Comment: Speci men Type: URINE SPECIMENOrdering Facility: [facility] Address: [address] [place] [address] Performed By: #### U QNTX ####[facility] [id number] [address] [place] Morphine Confirm (U) [Mass/Vol] <25 Normal <25 [facility] Comment on above: Order Comment: Speci men Type: URINE SPECIMENOrdering Facility: [facility] Address: [address] [place] [address] Performed By: #### U QNTX ####[facility] LABIA [id number] [address] [place] Norbuprenorphine (U) [Mass/Vol] <10 Normal <10 [facility] Comment on above: Order Comment: Speci men Type: URINE SPECIMENOrdering Facility: [facility] Address: [address] [place] [address] Result Comment: Norb uprenorphine is a metabolite of buprenorphine. Patients using transdermal formulations of buprenorphine may yield undetectable buprenorphine and norbuprenorphine urine concentrations. Performed By: #### U QNTX ####[facility] LABCLIA [id number] [place] [address] [place] Norfentanyl Confirm (U) [Mass/Vol] <1 Normal <1 [facility] Comment on above: Order Comment: Speci men Type: URINE SPECIMENOrdering Facility: [facility] Address: [address] [place] [address] Result Comment: Norf entanyl is a metabolite of fentanyl. Performed By: #### U QNTX ####[facility] LABIA [id number] [place] [address] [place] NORHYDROCODONE, UR <25 Normal <25 [facility] Comment on above: Order Comment: Speci men Type: URINE SPECIMENOrdering Facility: [facility] Address: [address] [place] [address] Result Comment: Norh ydrocodone is a metabolite of hydrocodone. Performed By: #### U QNTX ####[facility] [id number] [place] [address] [place] NOROXYCODONE, UR <25 Normal <25 [facility] Comment on above: Order Comment: Speci men Type: URINE SPECIMENOrdering Facility: [facility] Address: [address] [place] [address] Result Comment: Noro xycodone is a metabolite of oxycodone. Performed By: #### U QNTX ####[facility] [id number] [place] [address] [place] NOROXYMORPHONE, UR <25 Normal <25 [facility] Comment on above: Order Comment: Speci men Type: URINE SPECIMENOrdering Facility: [facility] Address: [address] [place] [address] Result Comment: Noro xymorphone is a metabolite of oxymorphone and oxycodone and a minor metabolite of naltrexone and naloxone. Performed By: #### U QNTX ####[facility] LABIA [id number] [address] [address] [place] Nortramadol (U) [Mass/Vol] <25 Normal <25 [facility] Comment on above: Order Comment: Speci men Type: URINE SPECIMENOrdering Facility: [facility] Address: [address] [place] [address] Result Comment: O-de smethyltramadol is a metabolite of tramadol. Performed By: #### U QNTX ####[facility] [id number] [place] [address] [place] NOTE, UR TOXICOLOGY PANEL Normal [facility] Comment on above: Order Comment: Speci men Type: URINE SPECIMENOrdering Facility: [facility] Address: [address] [place] [address] Result Comment: For medical purposes only. Not valid for legal or forensic purposes. This test was developed, and its performance characteristics determined by the [facility] Department of Pathology and Laboratory Medicine. It has not been cleared or approved by the FDA. The [facility] Department of Pathology and Laboratory Medicine is regulated under CLIA as qualified to perform high-complexity testing. This test is used for clinical purposes. It should not be regarded as investigational or for research. Performed By: #### U QNTX ####[facility] [id number] [place] [address] [place] oxyCODONE Confirm (U) [Mass/Vol] <25 Normal <25 [facility] Comment on above: Order Comment: Speci men Type: URINE SPECIMENOrdering Facility: [facility] Address: [address] [place] [address] Performed By: #### U QNTX ####[facility] [id number] [address] [address] [place] oxyMORphone Confirm (U) [Mass/Vol] <25 Normal <25 [facility] Comment on above: Order Comment: Speci men Type: URINE SPECIMENOrdering Facility: [facility] Address: [address] [place] [address] Performed By: #### U QNTX ####[facility] LABIA [id number] [address] [place] Phencyclidine Confirm (U) [Mass/Vol] <10 Normal <10 [facility] Comment on above: Order Comment: Speci men Type: URINE SPECIMENOrdering Facility: [facility] Address: [address] [place] [address] Result Comment: Phen cyclidine is also known as PCP. Performed By: #### U QNTX ####[facility] [id number] [place] [address] [place] PHENTERMINE, UR <25 Normal <25 [facility] Comment on above: Order Comment: Speci men Type: URINE SPECIMENOrdering Facility: [facility] Address: [address] [place] [address] Performed By: #### U QNTX ####[facility] [id number] [place] [address] [place] traMADol Confirm (U) [Mass/Vol] <25 Normal <25 [facility] Comment on above: Order Comment: Speci men Type: URINE SPECIMENOrdering Facility: [facility] Address: [address] [place] [address] Performed By: #### U QNTX ####[facility] LABIA [id number] [place] [id number] [place] SPECIMEN VALIDITY, URINEon 0 02-18-2025 CREATININE,URINE 95.3 mg/dL Normal 20.0-300.0 [facility] Comment on above: Order Comment: Speci men Type: URINE SPECIMENOrdering Facility: [facility] Address: [address] [place] [address] Performed By: #### L [id number] ####[facility] LABIA [id number] [address] [place] [address] [place] NITRITES,URINE <50 Normal <500 [facility] Comment on above: Order Comment: Speci men Type: URINE SPECIMENOrdering Facility: [facility] Address: [address] [place], [place] [address] Performed By: #### L [id number] ####[facility] LABCLIA [id number] [address] [place] [address] [place] OXIDANTS,URINE <38 Normal <200 [facility] Comment on above: Order Comment: Speci men Type: URINE SPECIMENOrdering Facility: [facility] Address: [address] [place] [address] Performed By: #### L [id number] ####[facility] LABCLIA [id number] [address] [place] [address] [place] pH (U) 7.0 [pH] Normal 4.5-8.0 [facility] Comment on above: Order Comment: Speci men Type: URINE SPECIMENOrdering Facility: [facility] Address: [address] [place] [address] Performed By: #### L [id number] ####[facility] LABCLIA [id number] [address] [place] [address] [place] SPEC GRAVITY,UR 1.021 Normal 1.003-1.035 [facility] Comment on above: Order Comment: Speci men Type: URINE SPECIMENOrdering Facility: [facility] Address: [address] [place] [address] Performed By: #### L [id number] ####[facility] LABCLIA [id number] [address] [place] [address] [place] SPECIMEN VALIDITY QUALITY Specimen quality results within acceptable limits Normal [facility] Comment on above: Order Comment: Speci men Type: URINE SPECIMENOrdering Facility: [facility] Address: [address] [place], [place] [address] Performed By: #### L [id number] ####[facility] LAB[facility]IA [id number] [place] [address] [place] TOXICOLOGY SCREEN, ROUTINE U RINEon 02-18-2025 Amphetamines Confirm (U) [Mass/Vol] Negative Normal Negative [facility] Comment on above: Order Comment: Speci men Type: BLOOD SPECIMEN Ordering Facility: [facility] Address: [address] [place] [address] Result Comment: Cuto ff threshold at 1000 ng/mL. Performed By: #### 2 276-4, 34208-0 #### [facility] CLIA [id number] [address] [place] [address] [place] BARBITURATES, URINE Negative Normal Negative [facility] Comment on above: Order Comment: Speci men Type: BLOOD SPECIMEN Ordering Facility: [facility] Address: [address] [place] [address] Result Comment: Cuto ff threshold at 200 ng/mL. Performed By: #### 2 276-4, 48021-0 #### [facility] CLIA [id number] [address] [place] [address] [place] BENZODIAZEPINES, URINE Negative Normal Negative [facility] Comment on above: Order Comment: Speci men Type: BLOOD SPECIMEN Ordering Facility: [facility] Address: [address] [place] [address] Result Comment: Cuto ff threshold at 200 ng/mL. Performed By: #### 2 276-4, 14863-1 #### [facility] CLIA [id number] [address] [place] [address] [place] Cannabinoids Screen Ql (U) Negative Normal Negative [facility] Comment on above: Order Comment: Speci men Type: BLOOD SPECIMEN Ordering Facility: [facility] Address: [address] [place] [address] Result Comment: Cuto ff threshold at 50 ng/mL. Performed By: #### 2 276-4, 05185-8 #### [facility] CLIA [id number] [address] [place] [address] [place] Cocaine Ql (U) Negative Normal Negative [facility] Comment on above: Order Comment: Speci men Type: BLOOD SPECIMEN Ordering Facility: [facility] Address: [address] [place] [address] Result Comment: Cuto ff threshold at 300 ng/mL. Performed By: #### 2 276-4, 30330-5 #### [facility] CLIA [id number] [address] [place] [address] [place] Ethanol (U) [Mass/Vol] <11 Normal <11 [facility] Comment on above: Order Comment: Speci men Type: BLOOD SPECIMEN Ordering Facility: [facility] Address: [address] [place] [address] Performed By: #### 2 276-4, 68791-3 #### [facility] CLIA [id number] [address] [place] [address] [place] fentaNYL Screen Ql (U) Negative Normal Negative [facility] Comment on above: Order Comment: Speci men Type: BLOOD SPECIMEN Ordering Facility: [facility] Address: [address] [place] [address] Result Comment: Cuto ff threshold at 5 ng/mL. Performed By: #### 2 276-4, 66850-7 #### [facility] CLIA [id number] [address] [place] [address] [place] Opiates Screen Ql (U) Negative Normal Negative [facility] Comment on above: Order Comment: Speci men Type: BLOOD SPECIMEN Ordering Facility: [facility] Address: [address] [place] [address] Result Comment: Cuto ff threshold at 300 ng/mL. Performed By: #### 2 276-4, 85505-2 #### [facility] CLIA [id number] [address] [place] [address] [place] oxyCODONE cutoff Screen (U) [Mass/Vol] Negative Normal Negative [facility] Comment on above: Order Comment: Speci men Type: BLOOD SPECIMEN Ordering Facility: [facility] Address: [address] [place] [address] Result Comment: Cuto ff threshold at 100 ng/mL. Performed By: #### 2 276-4, 62388-5 #### [facility] CLIA [id number] [address] [place] [address] [place] Phencyclidine Ql (U) Negative Normal Negative [facility] Comment on above: Order Comment: Speci men Type: BLOOD SPECIMEN Ordering Facility: [facility] Address: [address] [place] [address] Result Comment: Cuto ff threshold at 25 ng/mL. Performed By: #### 2 276-4, 28649-4 #### [facility] CLIA [id number] [address] [place] [address] [place] CNPLizbet 11-24-2024 [facility] Telephone ([facility] NANCY ENAMORADO ([id number]) 1970 M Date Time Provider Department 11/24/24 [facility] [place] During your visit today, we recorded the following information about you: Rachael Kirkland MA 11/24/2024 3:32 PM Signed Allergies As of Date: 11/24/2024 Noted Allergy Reaction METFORMIN 03/04/2023 5 - Intolerance Comments: Muscle aches, increase stool Date Reviewed: 11/18/2024 Reviewed by: Zohreh Bean MA - Fully Assessed Prescriptions as of 11/24/2024 - cyclobenzaprine (FLEXERIL) 10 mg tablet Take 1 tablet by mouth three times a day as needed for muscle spasm. - semaglutide (OZEMPIC) 1 mg/dose (4 mg/3 mL) pen Inject 1 mg subcutaneously one time a week. - buPROPion XL (WELLBUTRIN XL) 150 mg 24 hr tablet Take 1 tablet by mouth once daily. - lisinopril-hydroCHLOROthiaz kevin (ZESTORETIC) 20-12.5 mg per tablet Take 2 tablets by mouth once daily. - methadone (DOLOPHINE) 5 mg tablet Take 1.5 tablets by mouth every evening for 30 days. Patient should start on November 24, 2024. - methadone (DOLOPHINE) 5 mg tablet Take 1.5 tablets by mouth every evening for 30 days. Patient should start on October 24, 2024. - methadone (DOLOPHINE) 5 mg tablet Take 1.5 tablets by mouth every evening for 30 days. Patient should start on September 23, 2024. - atorvastatin (LIPITOR) 20 mg tablet Take 1 tablet by mouth daily at bedtime. For cholesterol. - Tadalafil (CIALIS) 5 mg tablet Take 1 tablet by mouth once daily. - testosterone cypionate (DEPO-TESTOSTERONE) 200 mg/mL injection Inject 1 mL intramuscularly every 2 weeks for 180 days. - blood sugar diagnostic (BLOOD GLUCOSE TEST) test strip Test blood sugar(s) 1-2 times daily. Dx: Type 2 DM - Uncontrolled E11.65 Insulin: No - Lancets lancets Test blood sugar(s) 1-2 times daily. Dx: Type 2 DM - Uncontrolled E11.65 Insulin: No - CPAP/BIPAP/OTHER Continue Auto CPAP with current settings of 8-15 cm H2O. Lifetime supplies for Auto CPAP, including patient preferred mask, head gear, heated tubing, humidity, filters, chin strap. 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] 05/10/2020 Prediabetes [R73.03] 09/17/2024 Controlled substance agreement signed [Z79.899] 12/26/2020 Idiopathic small fiber peripheral neuropathy [G*12/26/2020 JOSÉ MIGUEL (obstructive sleep apnea) [G47.33] 12/26/2020 Obesity, Class II, BMI 35-39.9 [E66.812] 12/26/2020 Shifting sleep-work schedule [G47.26] 12/26/2020 Chronic use of opiate for therapeutic purpose [*01/30/2021 Drug-induced constipation [K59.03] 01/30/2021 Air hunger [R09.89] 07/06/2021 Achilles tendinosis of left lower extremity [M6*07/27/2021 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] 07/27/2021 Calcaneal spur of left foot [M77.32] 07/27/2021 Hematuria [R31.9] 08/15/2021 Status post Achilles tendon repair [Z98.890] 12/20/2021 Diabetes mellitus type II (HCC) [E11.9] 08/14/2022 Obesity, Class I, BMI 30-34.9 [E66.811] 07/22/2024 Depression [F32.A] 11/02/2024 Encounter Status:Closed by RACHAEL KIRKLAND on 11/24/24 [facility] Office Visit ([facility] ) NANCY ENAMORADO ([id number]) 1970 M Date Time Provider Department 11/18/24 5:00 PM [facility]ARRY LYNCH [facility] During your visit today, we recorded the following information about you: Temperature Pulse Respiration Blood pressure 97.8 degrees 72/minute 18/minute 119/79 Weight 114.1 kg Larry Lynch MD 11/18/2024 5:22 PM Signed [facility] Subjective Nancy Cardenas eKlsea is a 53 year old male. Patient presents with: Back Pain: Mid R side back pain x1 day, 5/17 for same, unsure of cause Patient presents with back pain. He was seen here on 10/30/2024 and treated with Medrol and Flexeril. He had mostly improved but pain flared up again the last 2 days without known trigger. Pain is in the mid lumbar back with a knot to the right. No radiation to the legs. Pain is worse with movement; better with rest and heat. He has been using Advil. Denies numbness, weakness, loss of bladder/bowel control, or fever. Back Pain Review of Systems Musculoskeletal: Positive for back pain. Objective BP 119/79 Pulse 72 Temp 36.6 ?C (97.8 ?F) Resp 18 Wt 114.1 kg (251 lb 8.7 oz) SpO2 97% BMI 34.12 kg/m? Physical Exam Constitutional: General: He is not in acute distress. Comments: Sits with reduced movement HENT: Mouth/Throat: Mouth: Mucous membranes are moist. Eyes: Extraocular Movements: Extraocular movements intact. Conjunctiva/sclera: Conjunctivae normal. Pupils: Pupils are equal, round, and reactive to light. Cardiovascular: Rate and Rhythm: Normal rate and regular rhythm. Pulmonary: Effort: Pulmonary effort is normal. Breath sounds: Normal breath sounds. Abdominal: Tenderness: There is right CVA tenderness. There is no left CVA tenderness. Musculoskeletal: Lumbar back: Spasms and tenderness present. No swelling or bony tenderness. Negative right straight leg raise test and negative left straight leg raise test. Neurological: Mental Status: He is alert. Gait: Gait normal. Deep Tendon Reflexes: Reflexes normal. {ASSESSMENT/PLAN: 1. Acute midline low back pain without sciatica - ICD9: 724.2, ICD10: M54.50 Treat with supportive care. Prefer continuing ibuprofen over steroid to avoid hyperglycemia. He may take 600 mg 3 times a day as needed. Refill muscle relaxer which had been helpful last month- CYCLOBENZAPRINE 10 MG TABLET He will use therapy available through work. Seek immediate evaluation for loss of bladder or bowel control, unexplained fever, or progressive weakness or numbness. Larry Lynch MD Differential Diagnoses - Musculoskeletal low back pain is more likely for the following reason(s): suggested by [facility] Procedures Allergies As of Date: 11/18/2024 Noted Allergy Reaction METFORMIN 03/04/2023 5 - Intolerance Comments: Muscle aches, increase stool Date Reviewed: 11/18/2024 Reviewed by: Zohreh Bean MA - Fully Assessed Reason for Visit: Back Pain [12] Cmt: Mid R side back pain x1 day, 10/30 for same, unsure of cause Primary Visit Diagnosis:Acute midline low back pain without sciatica [M54.50] Order(s):cyclobenzaprine (FLEXERIL) 10 mg tabletTake 1 tablet by mouth three times a day as needed for muscle spasm.Disp: 15 tabletRfl: 0 Prescriptions as of 11/18/2024 - cyclobenzaprine (FLEXERIL) 10 mg tablet Take 1 tablet by mouth three times a day as needed for muscle spasm. - semaglutide (OZEMPIC) 1 mg/dose (4 mg/3 mL) pen Inject 1 mg subcutaneously one time a week. - buPROPion XL (WELLBUTRIN XL) 150 mg 24 hr tablet Take 1 tablet by mouth once daily. - lisinopril-hydroCHLOROthiaz kevin (ZESTORETIC) 20-12.5 mg per tablet Take 2 tablets by mouth once daily. - methadone (DOLOPHINE) 5 mg tablet Take 1.5 tablets by mouth every evening for 30 days. Patient should start on November 24, 2024. - methadone (DOLOPHINE) 5 mg tablet Take 1.5 tablets by mouth every evening for 30 days. Patient should start on October 24, 2024. - methadone (DOLOPHINE) 5 mg tablet Take 1.5 tablets by mouth every evening for 30 days. Patient should start on September 23, 2024. - atorvastatin (LIPITOR) 20 mg tablet Take 1 tablet by mouth daily at bedtime. For cholesterol. - Tadalafil (CIALIS) 5 mg tablet Take 1 tablet by mouth once daily. - testosterone cypionate (DEPO-TESTOSTERONE) 200 mg/mL injection Inject 1 mL intramuscularly every 2 weeks for 180 days. - blood sugar diagnostic (BLOOD GLUCOSE TEST) test strip Test blood sugar(s) 1-2 times daily. Dx: Type 2 DM - Uncontrolled E11.65 Insulin: No - Lancets lancets Test blood sugar(s) 1-2 times daily. Dx: Type 2 DM - Uncontrolled E11.65 Insulin: No - CPAP/BIPAP/OTHER Continue Auto CPAP with current settings of 8-15 cm H2O. Lifetime supplies for Auto CPAP, including patient preferred mask, head gear, heated tubing, humidity, filters, chin strap. Dx: Obstructive Sleep Apnea G47.33 DME (more content not included)... [facility] NANCY ENAMORADO ([id number]) 1970 M Date Time Provider Department 11/03/24 [facility] During your visit today, we recorded the following information about you: Migel Cai, RN 11/03/2024 1:31 PM Signed Pt reports Blade Valdez CNP, ordered CBC yesterday at pre op exam. States he is being fitted for inspire device. Noted his WBC's are elevated. Pt reports he has a pulled muscle in his back for 2 weeks and taking prednisone and a muscle relaxer for this, and it does still hurt. No fevers or illness. Pt asking pcp to advise on the results of CBC below: Latest Ref Rng 11/02/2024 WBC 3.70 - 11.00 k/uL 14.61 (H) RBC 4.20 - 6.00 m/uL 5.20 Hemoglobin 13.0 - 17.0 g/dL 16.2 Hematocrit 39.0 - 51.0 % 45.2 MCV 80.0 - 100.0 fL 86.9 MCH 26.0 - 34.0 pg 31.2 MCHC 30.5 - 36.0 g/dL 35.8 RDW-CV 11.5 - 15.0 % 12.3 Platelet Count 150 - 400 k/uL 270 MPV 9.0 - 12.7 fL 8.5 (L) Neut% % 72.7 Abs Neut (ANC) 1.45 - 7.50 k/uL 10.62 (H) Lymph% % 20.3 Abs Lymph 1.00 - 4.00 k/uL 2.97 Moca% % 5.4 Abs Moca <0.87 k/uL 0.79 Eosin% % 0.2 Abs Eosin <0.46 k/uL 0.03 Baso% % 0.3 Abs Baso <0.11 k/uL 0.04 Immature Gran % % 1.1 IMMATURE GRANS (ABS) <0.10 k/uL 0.16 (H) NRBC /100 WBC 0.0 Absolute nRBC <0.01 k/uL <0.01 DTYPE Auto Legend: (H) High (L) Low Chayo Hickey MD 11/03/2024 2:34 PM Signed The WBC would be consistent with his prednisone use. If he is having signs of infection such as fever/chills, cough, SOB, wheezing, abdominal pain, nausea, vomiting, rash, etc then let me know. Xiomara Lindsay LPN 11/03/2024 3:39 PM Signed Phoned patient and reviewed message with him. He denied having any of the symptoms listed and voiced understanding regarding provider's message. Xiomara Lindsay LPN Allergies As of Date: 11/03/2024 Noted Allergy Reaction METFORMIN 03/04/2023 5 - Intolerance Comments: Muscle aches, increase stool Date Reviewed: 11/02/2024 Reviewed by: Blade Valdez APRN.STOGY ROLLER - Fully Assessed Reason for Visit: Patient Question [1477] Lab results [Other] Prescriptions as of 11/03/2024 - methylPREDNISolone (MEDROL, LISSETH,) 4 mg Dose-Pack Follow dosing instructions, take with food. - cyclobenzaprine (FLEXERIL) 10 mg tablet Take 1 tablet by mouth three times a day as needed for muscle spasm. - semaglutide (OZEMPIC) 1 mg/dose (4 mg/3 mL) pen Inject 1 mg subcutaneously one time a week. - buPROPion XL (WELLBUTRIN XL) 150 mg 24 hr tablet Take 1 tablet by mouth once daily. - lisinopril-hydroCHLOROthiaz kevin (ZESTORETIC) 20-12.5 mg per tablet Take 2 tablets by mouth once daily. - methadone (DOLOPHINE) 5 mg tablet Take 1.5 tablets by mouth every evening for 30 days. Patient should start on November 24, 2024. - methadone (DOLOPHINE) 5 mg tablet Take 1.5 tablets by mouth every evening for 30 days. Patient should start on October 24, 2024. - methadone (DOLOPHINE) 5 mg tablet Take 1.5 tablets by mouth every evening for 30 days. Patient should start on September 23, 2024. - atorvastatin (LIPITOR) 20 mg tablet Take 1 tablet by mouth daily at bedtime. For cholesterol. - Tadalafil (CIALIS) 5 mg tablet Take 1 tablet by mouth once daily. - testosterone cypionate (DEPO-TESTOSTERONE) 200 mg/mL injection Inject 1 mL intramuscularly every 2 weeks for 180 days. - blood sugar diagnostic (BLOOD GLUCOSE TEST) test strip Test blood sugar(s) 1-2 times daily. Dx: Type 2 DM - Uncontrolled E11.65 Insulin: No - Lancets lancets Test blood sugar(s) 1-2 times daily. Dx: Type 2 DM - Uncontrolled E11.65 Insulin: No - CPAP/BIPAP/OTHER Continue Auto CPAP with current settings of 8-15 cm H2O. Lifetime supplies for Auto CPAP, including patient preferred mask, head gear, heated tubing, humidity, filters, chin strap. Dx: Obstructive Sleep Apnea G47.33 DME: [employer] [facility] Problem List As Of Date 11/03/2024 Noted Resolved Hypertension [I10] BPH (benign prostatic hyperplasia) [N40.0] Erectile dysfunction [N52.9] Hypertriglyceridemia [E78.1] Hypogonadism in male [E29.1] Restless legs syndrome (RLS) [G25.81] Brachial neuritis [M54.12] 05/10/2020 Prediabetes [R73.03] 09/17/2024 Controlled substance agreement signed [Z79.899] 12/26/2020 Idiopathic small fiber peripheral neuropathy [G*12/26/2020 JOSÉ MIGUEL (obstructive sleep apnea) [G47.33] 12/26/2020 Obesity, Class II, BMI 35-39.9 [E66.812] 12/26/2020 Shifting sleep-work schedule [G47.26] 12/26/2020 Chronic use of opiate for therapeutic purpose [*01/30/2021 Drug-induced constipation [K59.03] 01/30/2021 Air hunger [R09.89] 07/06/2021 Achilles tendinosis of left lower extremity [M6*07/27/2021 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 Normal [facility] CBC W Auto Differential pane l (Bld)on 11-02-2024 Basophils (Bld) [#/Vol] 0.04 10*3/uL Normal <0.11 [facility] Comment on above: Order Comment: Speci men Type: BLOOD SPECIMEN Ordering Facility: [facility] Address: [address] [place] [address] Performed By: #### 5 7021-8 #### [facility] CLIA [id number] [address] [place] [address] [place] Basophils/100 WBC (Bld) 0.3 % Normal [facility] Comment on above: Order Comment: Speci men Type: BLOOD SPECIMEN Ordering Facility: [facility] Address: [address] [place] [address] Performed By: #### 5 7021-8 #### [facility] CLIA [id number] [address] [place] [address] [place] Differential cell count method Nom (Bld) Auto Normal [facility] Comment on above: Order Comment: Speci men Type: BLOOD SPECIMEN Ordering Facility: [facility] Address: [address] [place] [address] Performed By: #### 5 7021-8 #### [facility] CLIA [id number] [address] [place] [address] [place] Eosinophils (Bld) [#/Vol] 0.03 10*3/uL Normal <0.46 [facility] Comment on above: Order Comment: Speci men Type: BLOOD SPECIMEN Ordering Facility: [facility] Address: [address] [place] [address] Performed By: #### 5 7021-8 #### [facility] CLIA [id number] [address] [place] [address] [place] Eosinophils/100 WBC (Bld) 0.2 % Normal [facility] Comment on above: Order Comment: Speci men Type: BLOOD SPECIMEN Ordering Facility: [facility] Address: [address] [place] [address] Performed By: #### 5 7021-8 #### [facility] CLIA [id number] [address] [place] [address] [place] Erythrocyte distribution width (RBC) [Ratio] 12.3 % Normal 11.5-15.0 [facility] Comment on above: Order Comment: Speci men Type: BLOOD SPECIMEN Ordering Facility: [facility] Address: [address] [place] [address] Performed By: #### 5 7021-8 #### [id number] [address] [place] [address] [place] Hematocrit (Bld) [Volume fraction] 45.2 % Normal 39.0-51.0 [facility] Comment on above: Order Comment: Speci men Type: BLOOD SPECIMEN Ordering Facility: [facility] Address: [address] [place] [address] Performed By: #### 5 7021-8 #### [facility] [id number] [address] [place] [address] [place] Hemoglobin (Bld) [Mass/Vol] 16.2 g/dL Normal 13.0-17.0 [facility] Comment on above: Order Comment: Speci men Type: BLOOD SPECIMEN Ordering Facility: [facility] Address: [address] [place] [address] Performed By: #### 5 7021-8 #### [facility] [id number] [address] [place] [address] [place] Immature granulocytes (Bld) [#/Vol] 0.16 10*3/uL High <0.10 [facility] Comment on above: Order Comment: Speci men Type: BLOOD SPECIMEN Ordering Facility: [facility] Address: [address] [place] [address] Performed By: #### 5 7021-8 #### [facility] CLIA [id number] [address] [place] [address] [place] Immature granulocytes/100 WBC (Bld) 1.1 % Normal [facility] Comment on above: Order Comment: Speci men Type: BLOOD SPECIMEN Ordering Facility: [facility] Address: [address] [place] [address] Performed By: #### 5 7021-8 #### [facility] CLIA [id number] [address] [place] [address] [place] Lymphocytes (Bld) [#/Vol] 2.97 10*3/uL Normal 1.00-4.00 [facility] Comment on above: Order Comment: Speci men Type: BLOOD SPECIMEN Ordering Facility: [facility] Address: [address] [place] [address] Performed By: #### 5 7021-8 #### [facility] CLIA [id number] [address] [place] [address] [place] Lymphocytes/100 WBC (Bld) 20.3 % Normal [facility] Comment on above: Order Comment: Speci men Type: BLOOD SPECIMEN Ordering Facility: [facility] Address: [address] [place] [address] Performed By: #### 5 7021-8 #### [facility] CLIA [id number] [address] [place] [address] [place] MCH (RBC) [Entitic mass] 31.2 pg Normal 26.0-34.0 [facility] Comment on above: Order Comment: Speci men Type: BLOOD SPECIMEN Ordering Facility: [facility] Address: [address] [place] [address] Performed By: #### 5 7021-8 #### [facility] CLIA [id number] [address] [place] [address] [place] MCHC (RBC) [Mass/Vol] 35.8 g/dL Normal 30.5-36.0 [facility] Comment on above: Order Comment: Speci men Type: BLOOD SPECIMEN Ordering Facility: [facility] Address: [address] [place] [address] Performed By: #### 5 7021-8 #### [facility] CLIA [id number] [address] [place] [address] [place] MCV (RBC) [Entitic vol] 86.9 fL Normal 80.0-100.0 [facility] Comment on above: Order Comment: Speci men Type: BLOOD SPECIMEN Ordering Facility: [facility] Address: [address] [place] [address] Performed By: #### 5 7021-8 #### [facility] CLIA [id number] [address] [place] [address] [place] Monocytes (Bld) [#/Vol] 0.79 10*3/uL Normal <0.87 [facility] Comment on above: Order Comment: Speci men Type: BLOOD SPECIMEN Ordering Facility: [facility] Address: [address] [place] [address] Performed By: #### 5 7021-8 #### [facility] [facility] CLIA [id number] [address] [place] [address] [place] Monocytes/100 WBC (Bld) 5.4 % Normal [facility] Comment on above: Order Comment: Speci men Type: BLOOD SPECIMEN Ordering Facility: [facility] Address: [address] [place] [address] Performed By: #### 5 7021-8 #### [facility] CLIA [id number] [address] [place] [address] [place] Neutrophils (Bld) [#/Vol] 10.62 10*3/uL High 1.45-7.50 [facility] Comment on above: Order Comment: Speci men Type: BLOOD SPECIMEN Ordering Facility: [facility] Address: [address] [place] [address] Performed By: #### 5 7021-8 #### [facility] CLIA [id number] [address] [place] [address] [place] Neutrophils/100 WBC (Bld) 72.7 % Normal [facility] Comment on above: Order Comment: Speci men Type: BLOOD SPECIMEN Ordering Facility: [facility] Address: [address] [place] [address] Performed By: #### 5 7021-8 #### [facility] CLIA [id number] [address] [place] [address] [place] Nucleated RBC (Bld) [#/Vol] 10*3/uL Normal <0.01 [facility] Comment on above: Order Comment: Speci men Type: BLOOD SPECIMEN Ordering Facility: [facility] Address: [address] [place] [address] Performed By: #### 5 7021-8 #### [facility] CLIA [id number] [address] [place] [address] [place] Nucleated RBC/100 WBC (Bld) [Ratio] 0.0 /100 WBC Normal [facility] Comment on above: Order Comment: Speci men Type: BLOOD SPECIMEN Ordering Facility: [facility] Address: [address] [place] [address] Performed By: #### 5 7021-8 #### [facility] CLIA [id number] [address] [place] [address] [place] Platelet mean volume (Bld) [Entitic vol] 8.5 fL Low 9.0-12.7 [facility] Comment on above: Order Comment: Speci men Type: BLOOD SPECIMEN Ordering Facility: [facility] Address: [address] [place] [address] Performed By: #### 5 7021-8 #### [facility] CLIA [id number] [address] [place] [address] [place] Platelets (Bld) [#/Vol] 270 10*3/uL Normal 150-400 [facility] Comment on above: Order Comment: Speci men Type: BLOOD SPECIMEN Ordering Facility: [facility] Address: [address] [place] [address] Performed By: #### 5 7021-8 #### [facility] CLIA [id number] [address] [place] [address] [place] RBC (Bld) [#/Vol] 5.20 10*6/uL Normal 4.20-6.00 [facility] Comment on above: Order Comment: Speci men Type: BLOOD SPECIMEN Ordering Facility: [facility] Address: [address] [place] [address] Performed By: #### 5 7021-8 #### [facility] CLIA [id number] [address] [place] [address] [place] WBC (Bld) [#/Vol] 14.61 10*3/uL High 3.70-11.00 [facility] Comment on above: Order Comment: Speci men Type: BLOOD SPECIMEN Ordering Facility: [facility] Address: [address] [place], [place] [address] Performed By: #### 5 7021-8 #### [id number] [address] [place] [address] [place] HISTORY PHYSICALon HISTORY PHYSICAL HNO ID: [id number] Author: BLADE VALDEZ APRN.STOGY ROLLER Service: ? Author Type: Nurse Practitioner Type: H&P Filed: 11/02/2024 15:01 Note Text: [facility] HISTORY AND PHYSICAL EXAMINATION SERVICE DATE: 11/02/2024 SERVICE TIME: 3:00 PM PRIMARY CARE PHYSICIAN: Chaoy Hickey MD Assessment Patient has the following medical conditions which may affect kajal-operative course: Restless legs syndrome (RLS) Assessment: pt states he is taking the Methadone for this, instructed to hold DOS, pt verbalized understanding. Hypertension Assessment: controlled on rx Last 14 BP Last 14 Encounter BP Readings: Date: BP: 11/02/2024 114/70 10/30/2024 121/77 09/17/2024 117/73 08/31/2024 114/78 06/22/2024 124/76 03/03/2024 123/68 03/02/2024 118/72 12/25/2023 117/74 12/05/2023 138/82 11/25/2023 116/74 08/29/2023 121/73 06/19/2023 142/83 06/12/2023 85/55 05/30/2023 128/76 Hypertriglyceridemia Assessment: c/w statin Diabetes mellitus type II (HCC) Assessment: weekly injectable, last DOSE 10/30/2024 per pt, pt scheduled 11/04/2024, it will only be 5 DAYS since last dose Hemoglobin A1C (%) Date Value 09/04/2024 5.4 07/06/2021 6.0 Hemoglobin A1C (POCT) (%) Date Value 05/30/2023 5.9 BPH (benign prostatic hyperplasia) Assessment: rx as needed Depression Assessment: stable on rx per pt Obesity, Class I, BMI 30-34.9 Assessment: Body mass index is 34.2 kg/m?. ANESTHESIA FINDINGS: Intubation History: No history of difficult intubation Significant Anesthesia Considerations: none Airway History: No history of difficult airway Stoner Activity Status Index: METS: Walk indoors, such as around the house (1.75 METs) Do light work around the house, such as dusting or washing dishes (2.70 METs) Take care of self; that is eating, dressing, bathing, using the toilet (2.75 METs) Walk a block or two on level ground (2.75 METs) Do moderate work around the house, such as vacuuming, sweeping floors, or carrying in groceries (3.50 METs) Do yardwork, such as raking leaves, weeding, or pushing a power mower (4.50 METs) Have sexual relations (5.25 METs) Climb a flight of stairs or walk up a hill (5.50 METs) DASI Score: 28.7 Patient denies any chest pain or undue shortness of breath with the above physical activity. Clinical Frailty Scale: 3. Well, with treated comorbid disease STOP-Bang Score: Snores loudly Often feels tired, fatigued, or sleepy during the daytime Has been observed to stop breathing or choking/gasping during sleep Has or is being treated for high blood pressure Patient over 50 years old Has a large neck Male patient BMI less than or equal to 35 kg/m2 STOP-Bang Score: 7 [id number] Score: Age: <65 Sex: male CHF history: No Hypertension history: Yes Stroke/TIA/thromboembolism history: No Vascular disease history: No Diabetes history: Yes [id number] Score: 2 ARISCAT Score: Age: 51-80 Preoperative SpO2: 91-95% Respiratory infection in the last month: No Preoperative anemia: No Surgical incision: peripheral Duration of surgery: <2 hrs Emergency procedure: No ARISCAT Score: 11 I - PHYSICAL EVALUATION AIRWAY Patient intubated: No. Tracheostomy tube not present Mallampati: III. TM distance: >3 FB. Neck ROM: full ROM without neurological symptoms. Mouth opening: adequate. Short neck: no. Thick neck: yes Broderick present: no Lip Bite Test: I Microretrognathia/Micronagt hia/Recessed Chin: No DENTAL Dental findings: teeth intact. II - ANESTHESIA PLAN Anesthetic Plan: other Beta Rosa Isela Monitoring Plan Post Procedure Analgesic Plan Prepared for Surgery: optimally prepared for surgery, pending [see comment]. labs CONSULTS: Patient does not require consults for optimization at this time Planned Anesthetic: other anesthesia choice The Following Tests/Procedures Have Been Initiated: Orders Placed This Encounter >CBC + AUTO DIFF Standing Status: Future Number of Occurrences: 1 Expected Date: 11/02/2024 Expiration Date: 02/01/2025 REASON FOR VISIT: Nancy Enamorado is a 53 year old male who is scheduled for Procedure(s): DISE DYN EVAL SLEEP DISORDERED BREATHING FLX DX (N/A) at the request of Dr. Michelle Riley for consultation. My final recommendation will be communicated back to the requesting physician by way of shared medical record or letter. Subjective The patient has the following: COVID-19 Immunization Status Upcoming Covid-19 Vaccine () Postponed until 03/02/2025 03/02/2024 Postponed until 03/02/2025 by Genesis Spencer APRN.STOGY ROLLER (Declined at this time) 08/29/2023 Postponed until 08/28/2024 by Genesis Spencer APRN.STOGY ROLLER (Declined at this time) 02/02/2022 Postponed until 02/02/2023 by Chayo Hickey MD (Declined at this time) Only the first 3 history entries have been loaded, but more (more content not included)... Normal [facility] CNOVon 11-01-2024 CNOV Office Visit (OTOLMN ) NANCY ENAMORADO ([id number]) 1970 M Date Time Provider Department 11/01/24 11:40 AM MICHELLE RILEY OTOLMN During your visit today, we recorded the following information about you: Weight 116.5 kg Urszula Moreira OCCA 11/01/2024 11:54 AM Signed Tobacco Use: Never Was smoking cessation packet given? N/A - Patient is a non-smoker or quit >1 year ago. Was a referral initiated?N/A Patient is a non-smoker Michelle Riley MD 11/01/2024 11:49 AM Signed Mandibular Advancement Device or Oral Appliance: An oral appliance is a custom-fit mouthguard that gently keeps the lower part of the jaw forward in order to open the back of your throat while you are sleeping. It is more effective for mild to moderate Obstructive Sleep Apnea. It is generally made and adjusted by a Sleep Dentist. A repeat a Home Sleep Study is usually performed after the oral appliance is optimally adjusted in order to evaluate its effectiveness. Below are details for dentists that have been approved by the [place] [employer] for Oral Appliance for Obstructive Sleep Apnea in the [facility]. Jaimee Campbell [address] [place] [address] Professional Website: [email or web address] Pepe Pereira [address] [place] [address] Professional Website: [email or web address] Education [employer] / Dandy Garcia [address] [place] [address] Professional Website: [email or web address] Anette Suleman [facility] [address] [place] [address] Professional Website: [email or web address] lenora Horan [address] [place] [address] Professional Website: [email or web address]://www.[email or web address] dentistry.StartX/ Maira Oswald [facility] [address] [place] [address] Professional Website: https://American TV 2 Go.StartX/ Mikel Piedra [facility] [address] [place] [address] Second Floor/[place] [id number] Professional Website: [email or web address] lenora Llanos [address] [place] [id number] Professional Ren Emerson [address] [address] [place] [address] Professional Website: [email or web address] lenora Scherer [address] [place] [id number] Professional Website: [email or web address]://www.Ynsect entalcareNovaled Carlton Shaikh [address] [place] [id number] Professional Website: https://WindPole Ventures lcare.StartX Dane Person [address] [place] [address] Professional Website: https://Poached Jobs Monserrat [facility] [place] Monserrat Say Cardoza DDS [address] [facility] [address] [place] [address] Professional Website: [email or web address] Caro Mattson [address] [place] [address] Professional Website: https://Pagevamp Luis Merida [address] [place], [place] Professional [address] [place] [address] Professional Website: [email or web address] Michelle Riley MD 11/01/2024 11:54 AM Signed IMPRESSION 53-year-old male with moderate obstructive sleep apnea. RECOMMENDATION/PLAN I discussed with him regarding his options which include CPAP, oral appliance, or possible inspire. After discussion, patient wishes to proceed with inspire evaluation. Therefore I recommend proceeding with drug-induced sleep endoscopy to determine his candidacy. Informed consent was obtained in the office today. We will get him scheduled for the procedure in the near future. Chief Complaint JOSÉ MIGUEL interested in inspire. History of Present Illness Nancy Enamorado is a 53 year old male with obstructive sleep apnea interested in inspire. Patient previous saw me in February 2023, at that time, patient's BMI was too high for implantation. Patient has subsequently lost weight. His BMI today is 34.83. Patient had a sleep study in February 2024 which showed moderate obstructive sleep apnea with AHI of 23.3. He did have some central apneic episodes but it is less than 25% of all respiratory events. Patient tried CPAP and is having difficulty to (more content not included)... Normal [facility] CNOVon 10-30-2024 CNOV Office Visit (UCWSTR ) NANCY ENAMORADO ([id number]) 1970 M Date Time Provider Department 10/30/24 9:00 AM PRITI DOCKERY [facility] During your visit today, we recorded the following information about you: Temperature Pulse Respiration Blood pressure 97.1 degrees 79/minute 12/minute 121/77 Weight Height 114.6 kg 1.829 m Priti Dockery APRN.STOGY ROLLER 10/30/2024 9:29 AM Addendum Subjective The history is provided by the patient. No language pathologist was used. HPI Nancy Enamorado is a 53 year old male who presents today for CC of right-sided back pain. Right-Sided Back Pain: - Onset a few weeks ago; denies known trauma or injury. - Denies recent heavy lifting or strenuous activity; minimal gardening. - Localized to the right side, worsened by movement and prolonged standing. - No radiation of pain to the legs, no bowel or bladder function problems. - Taking 1200 mg of ibuprofen daily with some relief. - Denies hematuria or dysuria. Diabetes: - Managed with Ozempic; unable to tolerate metformin. BP 121/77 (BP Site: Left Arm, BP Position: Sitting, BP Cuff Size: Large Adult) Pulse 79 Temp 36.2 ?C (97.1 ?F) (Temporal) Resp 12 Ht 182.9 cm (6') Wt 114.6 kg (252 lb 10.4 oz) SpO2 95% BMI 34.27 kg/m? Social History Tobacco Use Smoking status: Never Smokeless tobacco: Never Vaping Use Vaping status: Never Used Substance Use Topics Alcohol use: Yes Alcohol/week: 2.0 standard drinks of alcohol Types: 2 Cans of beer per week Drug use: Never PAST MEDICAL HISTORY Diagnosis Date Achilles tendinosis of left lower extremity s/p repair BPH (benign prostatic hyperplasia) Diabetes mellitus type II (HCC) Erectile dysfunction Heel spur, left Hypertension Hypertriglyceridemia Hypogonadism in male Idiopathic neuropathy Lipoma of right shoulder 05/2023 JOSÉ MIGUEL (obstructive sleep apnea) 08/2020 RLS (restless legs syndrome) Dr Man Thrombosed hemorrhoids 11/2021 Vitamin D deficiency I have confirmed and edited as necessary, the [facility] Review of Systems Constitutional: Negative for chills and fever. Musculoskeletal: Positive for back pain. Negative for joint pain and myalgias. Skin: Negative for itching and rash. All other systems reviewed and are negative. Objective Physical Exam Vitals and nursing note reviewed. Cardiovascular: Pulses: Popliteal pulses are 2+ on the right side and 2+ on the left side. Dorsalis pedis pulses are 2+ on the right side and 2+ on the left side. Posterior tibial pulses are 2+ on the right side and 2+ on the left side. Pulmonary: Effort: Pulmonary effort is normal. Musculoskeletal: Cervical back: Normal. Thoracic back: Spasms and tenderness present. No swelling, edema, deformity, signs of trauma or lacerations. Normal range of motion. No scoliosis. Lumbar back: Normal. Back: Comments: Pain worse with movement Skin: General: Skin is warm and dry. Neurological: Mental Status: He is alert and oriented to person, place, and time. Psychiatric: Mood and Affect: Affect normal. History and Record Review External record(s) reviewed: prior labs/imaging. Findings from review of prior labs/imaging: Previous Renal Function Panel Reviewed 11/26/2023: BUN 7 (L); Creatinine 1.07; Estimated Glomerular Filtration Rate 83 03/02/2024: BUN 8 (L); Creatinine 1.11; Estimated Glomerular Filtration Rate 79 09/04/2024: BUN 15; Creatinine 1.12; Estimated Glomerular Filtration Rate 78 Differential Diagnoses - muscle strain - back is more likely for the following reason(s): suggested by HANDP - kidney stone is less likely for the following reason(s): HANDP not suggestive Recording using ambient SurroundsMe software for draft documentation of the visit was discussed with the patient/authorized customer response representative; all questions welcomed and answered. Patient/authorized customer response representative agreed to proceed ASSESSMENT/PLAN: 1. Acute midline low back pain without sciatica - ICD9: 724.2, ICD10: M54.50 Medrol dose pack as ordered Flexeril prn Tylenol prn Follow up with pcp When to report to a higher level of care discussed. Diagnosis and treatment plan were discussed and questions were answered to the patient's satisfaction. Pt acknowledged understanding of concepts and follow up plan. Specific signs and symptoms that would indicate the need for higher level of care were discussed in detail warranting prompt ER evaluation. Priti Dockery APRN.Priti Ramsey APRN.CNP 10/30/2024 9:12 AM Signed You will begin a 6-day course of Medrol Dosepak as prescribed (6 tablets on day 1, then tapering down over the next 5 days) to help reduce inflammation. Start taking the prescribed muscle relaxer to ease the muscle knot; be cautious as it may cause drowsiness and avoid driving if affected. Continue using ibuprofen as needed, but note that we are not increasing your do (more content not included)... Normal [facility] CNPNon 10-06-2024 [facility] Telephone ([facility]) NANCY ENAMORADO ([id number]) 1970 M Date Time Provider Department 10/06/24 GANESH OJEDA [facility] During your visit today, we recorded the following information about you: Narda Wilson, ANDREW 10/06/2024 11:44 AM Signed Allergies As of Date: 10/06/2024 Noted Allergy Reaction METFORMIN 03/04/2023 5 - Intolerance Comments: Muscle aches, increase stool Date Reviewed: 09/17/2024 Reviewed by: Emmie Krueger LPN - Fully Assessed Reason for Visit: PAP Therapy Follow Up [1285] Cmt: Download Prescriptions as of 10/06/2024 - methadone (DOLOPHINE) 5 mg tablet Take 1.5 tablets by mouth every evening for 30 days. Patient should start on November 24, 2024. - methadone (DOLOPHINE) 5 mg tablet Take 1.5 tablets by mouth every evening for 30 days. Patient should start on October 24, 2024. - methadone (DOLOPHINE) 5 mg tablet Take 1.5 tablets by mouth every evening for 30 days. Patient should start on September 23, 2024. - atorvastatin (LIPITOR) 20 mg tablet Take 1 tablet by mouth daily at bedtime. For cholesterol. - semaglutide (OZEMPIC) 1 mg/dose (4 mg/3 mL) pen Inject 1 mg subcutaneously one time a week. - Tadalafil (CIALIS) 5 mg tablet Take 1 tablet by mouth once daily. - testosterone cypionate (DEPO-TESTOSTERONE) 200 mg/mL injection Inject 1 mL intramuscularly every 2 weeks for 180 days. - lisinopril-hydroCHLOROthiaz kevin (ZESTORETIC) 20-12.5 mg per tablet Take 2 tablets by mouth once daily. - buPROPion XL (WELLBUTRIN XL) 150 mg 24 hr tablet Take 1 tablet by mouth once daily. - blood sugar diagnostic (BLOOD GLUCOSE TEST) test strip Test blood sugar(s) 1-2 times daily. Dx: Type 2 DM - Uncontrolled E11.65 Insulin: No - Lancets lancets Test blood sugar(s) 1-2 times daily. Dx: Type 2 DM - Uncontrolled E11.65 Insulin: No - CPAP/BIPAP/OTHER Continue Auto CPAP with current settings of 8-15 cm H2O. Lifetime supplies for Auto CPAP, including patient preferred mask, head gear, heated tubing, humidity, filters, chin strap. Dx: Obstructive Sleep Apnea G47.33 DME: [employer] Problem List As Of Date 10/06/2024 Noted Resolved Hypertension [I10] BPH (benign prostatic hyperplasia) [N40.0] Erectile dysfunction [N52.9] Hypertriglyceridemia [E78.1] Hypogonadism in male [E29.1] Restless legs syndrome (RLS) [G25.81] Brachial neuritis [M54.12] 05/10/2020 Prediabetes [R73.03] 09/17/2024 Controlled substance agreement signed [Z79.899] 12/26/2020 Idiopathic small fiber peripheral neuropathy [G*12/26/2020 JOSÉ MIGUEL (obstructive sleep apnea) [G47.33] 12/26/2020 Obesity, Class II, BMI 35-39.9 [E66.812] 12/26/2020 Shifting sleep-work schedule [G47.26] 12/26/2020 Chronic use of opiate for therapeutic purpose [*01/30/2021 Drug-induced constipation [K59.03] 01/30/2021 Air hunger [R09.89] 07/06/2021 Achilles tendinosis of left lower extremity [M6*07/27/2021 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 [address] [place] [address] ; PAP Titration Study Report Name: NANCY ENAMORADO Date of Study: 10/01/2024 CCF#: [id number] Age: 53 (: 1970) ESS: 03/09 Neck Circ. (cm): 45.0 Height (cm): 182.9 Weight (kg): 114.8 BMI: 34.3 Referring Provider: GANESH OJEDA Mailcode: S73 Sleep history: The patient is a 53 year old male with obstructive sleep apnea. A polysomnogram on 09/02/2020 showed an overall apnea-hypopnea index (AHI)/respiratory event index (KIMBERLEY) of 36.6, Supine AHI/KIMBERLEY of 44.7, central apnea index (HUNG) of 2.3, and an oxygen saturation jean of 71%. The patient is not using PAP therapy at home due to pressure intolerance on CPAP with a setting of 8-15 cmH2O. He is being considered for HGN stimulation therapy.The patient endorses being a habitual supine and side sleeper. Past medical history: Diabetes mellitus type II, Hyperlipidemia, Hypertension, Obesity, Obstructive sleep apnea, Restless legs syndrome. Medications: Lipitor, Wellbutrin xl, Zestoretic, Dolophine, Ozempic, Cialis, Testosterone cypionate. Sleep procedure: PSG w/CPAP or Bilevel PAP 4 or > jluis PC (00620) Procedure: The study was attended continuously by a orthopaedic technologist. The monitored parameters included: left (E1-M2) and right (E2-M1) EOG, frontal (F3-M2 and F4-M1), central (C3-M2 and C4-M1) and occipital (O1-M2 and O2-M1) EEG, mental and submental EMG, left and right anterior tibialis, left and right flexor digitorum superficialis EMG, single ECG waveform, snoring, continuous airflow via PAP interface, chest and abdominal effort, oxygen saturation, and body position via video monitoring. Hypopnea definition: The peak signal excursions drop by >= 30% of pre-event baseline using nasal pressure (diagnostic study), PAP device flow (titration study) or an alternative hypopnea sensor (diagnostic study). The duration of the >= 30% drop in signal excursion is >= 10 seconds. There is a greater than or equal to 3% oxygen desaturation from pre-event baseline or the event is associated with an arousal. Respiratory Effort Related Arousal (RERA) definition: 10 seconds characterized by increasing respiratory effort or by flattening of the nasal pressure or PAP flow waveform leading to arousal from sleep when the sequence of breaths does not meet criteria for an apnea or hypopnea. Respiratory Disturbance Index (RDI) definition: RDI = (#apneas + #hypopneas + #RERAs) x 60 / TST. If AHI is 0.0, then RDI = RERA index. SLEEP ARCHITECTURE: The study started at 21:15:51 and ended at 05:24:34. Total sleep time (TST) was 401 minutes resulting in a sleep efficiency of 82.0% (total recording time (TRT) = 489 m). There were 42 awakenings with a total time awake after sleep onset of 78.5 minutes. The sleep latency was 9.5 minutes and the REM latency was 83 minutes. The patient spent 52.2% of sleep time in the supine position. The sleep stage percentages were 9.0% stage N1, 71.4% stage N2, 0.0% stage N3 and 19.6% REM sleep. There were 190 arousals, resulting in an arousal index of 28.4. There were 130 stage shifts. POSITIVE AIRWAY PRESSURE DATA: Bilevel was initiated at 13/7 cmH2O. Snoring was eliminated at a Bilevel setting of 13/7 cmH2O. There were 64 respiratory events consisting of 23 apneas [3 obstructive (13%), 0 mixed (0%), and 20 central (87%)], 41 hypopneas and 0 RERAs. The mean oxygen saturation during the study was 95%, with a minimum oxygen saturation of 85%. The patient spent 0.4% (1.4 min) of sleep time with an oxygen saturation below 90% and 0.2% (0.7 min) of sleep time with an oxygen saturation at or below 88%. The transcutaneous pCO2 (TcpCO2) was not recorded. Syed-Vuong/Periodic Breathing was not present. Supplemental oxygen was not administered. A [employer] DreamWear under the nose nasal mask with chin strap was used. The mask leak at the most effective pressure was within normal limits. PAP SUMMARY: By Pressure: PAP BUR O2 TST %Sup SupAHI REM RAHI HUNG AHI ArIdx Jean AvgSaO2 0 0.0 0.0m 0% -- 0.0m -- -- -- -- -- -- 0 0.0 11.5m 100% 10.4 0.0m -- 0.0 10.4 41.7 93% 95% 14 08 0 0.0 97.0m 10% 6.0 31.5m 11.4 0.6 9.9 19.2 90% 95% 15 / 09 0 0.0 43.5m 100% 2.8 0.0m -- 1.4 2.8 29.0 93% 96% 16 09 0 0.0 50.5m 67% 3.5 0.0m -- 8.3 16.6 23.8 85% 95% 16 / 11 0 0.0 35.5m 17% 0.0 8.5m 7.1 1.7 6.8 25.4 91% 95% 17 / 11 0 0.0 100.0m 43% 18.1 33.5m 23.3 4.8 11.4 27.0 85% 95% 18 / 12 0 0.0 17.0m 91% 7.7 5.0m 12.0 0.0 7.1 74.1 92% 96% 19 / 12 0 0.0 46.0m 100% 6.5 0.0m -- 2.6 6.5 27.4 92% 96% PAP BUR O2 TST %Sup SupRDI REM RRDI HI RDI ArIdx Jean AvgSaO2 0 0.0 0.0m 0% -- 0.0m -- -- -- -- -- -- 0 0.0 11.5m 100% 10.4 0.0m -- 10.4 10.4 41.7 93% 95% 14 / 08 0 0.0 97.0m 10% 6.0 31.5m 11.4 9.3 9.9 19.2 90% 95% 15 / 09 0 0.0 43.5m 100% 2.8 0.0m -- 1.4 2.8 29.0 9 (more content not included)... Normal [facility] CNOVon 09-17-2024 CNOV Office Visit (TERESA ) NANCY ENAMORADO ([id number]) 1970 M Date Time Provider Department 09/17/24 2:30 PM FRANK LAL During your visit today, we recorded the following information about you: Pulse Respiration Blood pressure Weight 84/minute 18/minute 117/73 114.8 kg Frank Lal APRN.CNP 09/17/2024 4:41 PM Signed [facility] Follow up/ Established patient visit Date of last visit : 07/22/24 The following Impression/Plan was copied and pasted from the patient's last [facility] visit on 07/22/24: IMPRESSION/PLAN: Obstructive sleep apnea (primary encounter diagnosis) Restless legs syndrome (rls) 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 He was doing well on PAP therapy for management of JOSÉ MIGUEL until approximately a year ago, when he developed pressure intolerance for unknown reasons. He is having difficulty tolerating PAP therapy due to aerophagia and air hunger reports. He has tried turning off the ramp setting, and trying alternative masks without improvement. He is considering alternative treatment option of his JOSÉ MIGUEL with the hypoglossal nerve stimulator, and will consult ENT. I have discussed with him at last visit and again today, that he may be better tolerating of bilevel settings. He was unable to complete recommended PAP titration study due to family responsibilities, however he will schedule in near future. His RLS is very well-controlled on methadone 7.5 mg nightly. As long as he continues to take this medication he is not bothered by RLS symptoms. He denies drug side effect or adverse drug reaction. He denies drowsy driving. He is encouraged to obtain closer to 7 to 9 hours of sleep per night. All questions answered. PLAN: - Continue Auto CPAP as tolerated. - Due to increased difficulty tolerating CPAP settings, I recommend a PAP titration study with Bilevel settings. - Consult ENT for consideration of INSPIRE. - Remember to clean your mask and equipment regularly, as directed. - You should be eligible for new supplies approximately every 3-6 months, depending on your insurance coverage. Contact your Durable Medical Equipment (DME) company for new supplies as needed. - RLS well controlled with Methadone 7.5 mg in the evening. - Obtain annual utox - Follow up in 3 months or sooner if needed. Ganesh Ojeda APRN.STOGY ROLLER Here for follow up for RLS and JOSÉ MIGUEL Having difficulty tolerating APAP, feels like he is suffocating with PAP on. Takes mask off after a couple of hours. 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 He was hoping to be evaluated for hypoglossal nerve stimulation (Inspire) but his is very ill, she has been hospitalized frequently, has seizures in the night, he listens to make sure she is ok--so his sleep is really poor quality. He was evaluated by Dr Riley for Inspire, needed to get BMI less than 35 which he has done. He is scheduled on 10/01/24 for biPAP titration study RLS No sxs as long as he takes methadone 7.5 mg daily, usually takes it one hr before bedtime. Only about 2x per year his legs feel fidgety. Methadone 5 mg #45 last filled 08/24/24 PDMP website checked and validated. All prescriptions have been APPROPRIATELY filled. No suspicious activity was identified. 09/17/2024 by Frank Lal APRN.MARTA SLEEP APNEA Sleep apnea type : JOSÉ MIGUEL, Most Recent Apnea-Hypopnea Index (AHI): 23.3, supine 34.2, REM AHI 56.0 Treatment : PAP therapy DME: [employer] PAP History: Uses CPAP for 4 hours per night, 7 nights per week. 57% of nights>=4 hrs in the past month. Current PAP settin-20 cm H2O. Difficulties with AutoPAP: Yes: see above Reviewed objective PAP compliance data: AHI 2.6, P95 9.2 cmH2O Mask type: nasal pillow interface Mask issues: none --- SLEEP HYGIENE QUESTIONS: Bedtime : 10 pm at the latest, earlier if he needs to based on work schedule Time it takes to fall sleep : quick Wakes after a few hours because he can't tolerate the mask, feels like he can't get enough air, then can't fall back asleep if mask on, also hard to sleep again even w/o mask on Starts work anywhere from 3 to 6 AM Reason (s) why patient wakes up during the night : urination Estimated total sleep time ( in a 24 hour period of time) : he aims for 7 hrs but Naps : sometimes on weekends 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 07/20/2024 Sleep Questio (more content not included)... Normal [facility] Comprehensive metabolic 2000 panelon 09-04-2024 Albumin [Mass/Vol] 4.2 g/dL Normal 3.9-4.9 [facility] Comment on above: Order Comment: Speci men Type: BLOOD SPECIMENOrdering Facility: [facility] Address: [address] [place] [address] Performed By: #### 2 4331-1, 47505-8 ####[facility] LABCLIA [id number] [place] [id number] [place] ALP [Catalytic activity/Vol] 82 U/L Normal 38-113 [facility] Comment on above: Order Comment: Speci men Type: BLOOD SPECIMENOrdering Facility: [facility] Address: [address] [place] [address] Performed By: #### 2 4331-1, 27807-6 ####[facility] LABCLIA [id number] [place] [id number] [place] ALT [Catalytic activity/Vol] 26 U/L Normal 10-54 [facility] Comment on above: Order Comment: Speci men Type: BLOOD SPECIMENOrdering Facility: [facility] Address: [address] [place] [address] Performed By: #### 2 4331-1, 47406-1 ####[facility] LABCLIA [id number] [address] [address] [place] Anion gap [Moles/Vol] 11 mmol/L Normal 8-15 [facility] Comment on above: Order Comment: Speci men Type: BLOOD SPECIMENOrdering Facility: [facility] Address: [address] [place], [place] [address] Performed By: #### 2 4331-1, 47825-2 ####[facility] LABCLIA [id number] [facility] [address] [address] [place] AST [Catalytic activity/Vol] 20 U/L Normal 14-40 [facility] Comment on above: Order Comment: Speci men Type: BLOOD SPECIMENOrdering Facility: [facility] Address: [address] [place] [address] Performed By: #### 2 4331-1, 25600-0 ####[facility] LABCLIA [id number] [place] [id number] [place] Bilirubin [Mass/Vol] 0.8 mg/dL Normal 0.2-1.3 [facility] Comment on above: Order Comment: Speci men Type: BLOOD SPECIMENOrdering Facility: [facility] Address: [address] [place], [place] [address] Performed By: #### 2 4331-1, 33156-1 ####[facility] LABCLIA [id number] [place] [id number] [place] Calcium [Mass/Vol] 9.3 mg/dL Normal 8.5-10.2 [facility] Comment on above: Order Comment: Speci men Type: BLOOD SPECIMENOrdering Facility: [facility] Address: [address] [place], [place] [address] Performed By: #### 2 4331-1, 42721-8 ####[facility] LABCLIA [id number] [place] [id number] [place] Chloride [Moles/Vol] 99 mmol/L Normal 98-107 [facility] Comment on above: Order Comment: Speci men Type: BLOOD SPECIMENOrdering Facility: [facility] Address: [address] [place] [address] Performed By: #### 2 4331-1, 50980-9 ####[facility] LABIA [id number] [address] [address] [place] CO2 [Moles/Vol] 27 mmol/L Normal 22-30 [facility] Comment on above: Order Comment: Speci men Type: BLOOD SPECIMENOrdering Facility: [facility] Address: [address] [place] [address] Performed By: #### 2 4331-1, 19053-0 ####[facility] LABIA [id number] [place] [id number] [place] Creatinine [Mass/Vol] 1.12 mg/dL Normal 0.73-1.22 [facility] Comment on above: Order Comment: Speci men Type: BLOOD SPECIMENOrdering Facility: [facility] Address: [address] [place] [address] Performed By: #### 2 4331-1, 59686-4 ####[facility] LABIA [id number] [place] [address] [place] Creatinine and Glomerular filtration rate.predicted panel (S/P/Bld) 78 mL/min/1.73m??? Normal >=60 [facility] Comment on above: Order Comment: Speci men Type: BLOOD SPECIMENOrdering Facility: [facility] Address: [address] [place] [address] Result Comment: Sandy mated Glomerular Filtration Rate (eGFR) is calculated using the 2020 CKD-EPI creatinine equation. This equation utilizes serum creatinine, sex, and age as parameters. The creatinine assay has traceable calibration to isotope dilution-mass spectrometry. Refer to KDIGO guidelines for clinical interpretation. In patients with unstable renal function, e.g. those with acute kidney injury, the eGFR may not accurately reflect actual GFR. Performed By: #### 2 4331-1, 83883-8 ####[facility] LABIA [id number] [address] [address] [place] Glucose [Mass/Vol] 129 mg/dL High 74-99 [facility] Comment on above: Order Comment: Speci men Type: BLOOD SPECIMENOrdering Facility: [facility] Address: [address] [place] [address] Result Comment: The Citizen Of [place] Diabetes Association (ADA) provides guidance for cutoff values for fasting glucose and random glucose. The ADA defines fasting as no caloric intake for at least 8 hours. Fasting plasma glucose results between 100 to 125 mg/dL indicate increased risk for diabetes (prediabetes). Fasting plasma glucose results greater than or equal to 126 mg/dL meet the criteria for diagnosis of diabetes. In the absence of unequivocal hyperglycemia, results should be confirmed by repeat testing. In a patient with classic symptoms of hyperglycemia or hyperglycemic crisis, random plasma glucose results greater than or equal to 200 mg/dL meet the criteria for diagnosis of diabetes. Reference: Standards of Medical Care in Diabetes 2016, Citizen [place] Diabetes Association. Diabetes Care. 2016.39(Suppl 1). Performed By: #### 2 4331-1, 37021-9 ####[facility] LABIA [id number] [place] [address] [place] Potassium [Moles/Vol] 4.2 mmol/L Normal 3.7-5.1 [facility] Comment on above: Order Comment: Speci men Type: BLOOD SPECIMENOrdering Facility: [facility] Address: [address] [place] [address] Performed By: #### 2 4331-, 33089-1 ####[facility] LABCLIA [id number] [place] [id number] [place] Protein [Mass/Vol] 7.2 g/dL Normal 6.3-8.0 [facility] Comment on above: Order Comment: Speci men Type: BLOOD SPECIMENOrdering Facility: [facility] Address: [address] [place] [address] Performed By: #### 2 4331-1, 16888-2 ####[facility] LABIA [id number] [address] [address] [place] Sodium [Moles/Vol] 137 mmol/L Normal 136-144 [facility] Comment on above: Order Comment: Keven men Type: BLOOD SPECIMENOrdering Facility: [facility] Address: [address] [place] [address] Performed By: #### 2 4331-1, 73287-7 ####[facility] LABCLIA [id number] [place] [address] [place] Urea nitrogen [Mass/Vol] 15 mg/dL Normal 9-24 [facility] Comment on above: Order Comment: Josefi men Type: BLOOD SPECIMENOrdering Facility: [facility] Address: [address] [place] [address] Performed By: #### 2 4331-1, 68046-8 ####[facility] LABCLIA [id number] [place] [address] [place] HbA1c (Bld)on 09-04-2024 Average glucose Estimated from glycated hemoglobin (Bld) [Mass/Vol] 108 mg/dL Normal [facility] Comment on above: Order Comment: Keven tang Type: BLOOD SPECIMEN Ordering Facility: [facility] Address: [address] [place] [address] Result Comment: eAG: (Estimated average glucose) is a calculated value from HgbA1c and is customer response representative of the average blood glucose level in the last 2-3 month period. Performed By: #### 2 276-4, 79115-4 #### [facility] LAB CLIA [id number] [address] [place] [address] [place] HbA1c (Bld) [Mass fraction] 5.4 % Normal 4.3-5.6 [facility] Comment on above: Order Comment: Keven tang Type: BLOOD SPECIMEN Ordering Facility: [facility] Address: [address] [place] [address] Result Comment: Amer ican Diabetes Association guidelines indicate that patients with HgbA1c in the range 5.7-6.4% are at increased risk for development of diabetes, and intervention by lifestyle modification may be beneficial. HgbA1c greater or equal to 6.5% is considered diagnostic of diabetes. Performed By: #### 2 276-4, 20039-5 #### [facility] CLIA [id number] [facility] [place] [address] [place] Lipid 1996 panelon 5 Cholesterol [Mass/Vol] 135 mg/dL Normal <200 [facility] Comment on above: Order Comment: Speci men Type: BLOOD SPECIMENOrdering Facility: [facility] Address: [address] [place] [address] Result Comment: <200 mg/dL, Desirable 200-239 mg/dL, Borderline high >239 mg/dL, High Performed By: #### 2 4331-1, 94258-9 ####[facility] LABCLIA [id number] [address] [place] Cholesterol in HDL [Mass/Vol] 27 mg/dL Low >39 [facility] Comment on above: Order Comment: Josefi men Type: BLOOD SPECIMENOrdering Facility: [facility] Address: [address] [place] [address] Result Comment: 40-5 9 mg/dL, Acceptable >59 mg/dL, High: Negative risk factor for coronary heart disease <40 mg/dL, Low: Positive risk factor for coronary heart disease Performed By: #### 2 4331-1, 13077-2 ####[facility] LABCLIA [id number] [address] OF [facility] Cholesterol in LDL [Mass/Vol] 57 mg/dL Normal <100 [facility] Comment on above: Order Comment: Speci men Type: BLOOD SPECIMENOrdering Facility: [facility] Address: [address] [place] [address] Result Comment: <100 mg/dL, Optimal 100-129 mg/dL, Near optimal/above optimal 130-159 mg/dL, Borderline high 160-189 mg/dL, High >189 mg/dL, Very high Secondary prevention optimal LDL Cholesterol levels are recommended to be < 70 mg/dL Performed By: #### 2 4331-1, 68540-1 ####[facility] LABCLIA [id number] [address] [address] [place] Cholesterol in LDL/Cholesterol in HDL [Mass ratio] 2.11 {ratio} Normal <2.54 [facility] Comment on above: Order Comment: Speci men Type: BLOOD SPECIMENOrdering Facility: [facility] Address: [address] [place] [address] Result Comment: Refe rence: 1. National Cholesterol Education Program ATP III Guideline At-A-Glance Quick Desk Reference: National Heart, Lung, and Blood [place]. National Institutes of Health. 2001: NIH Publication No. 01-3305. 2. An International Atherosclerosis Society position paper: global recommendations for the management of dyslipidemia: executive summary, Atherosclerosis. 2014: 232(2):410-413. Performed By: #### 2 4331-1, 43191-9 ####[facility] LABCLIA [id number] [address] [address] [place] Cholesterol in VLDL [Mass/Vol] 51 mg/dL High <30 [facility] Comment on above: Order Comment: Speci men Type: BLOOD SPECIMENOrdering Facility: [facility] Address: [address] [place] [address] Performed By: #### 2 4331-1, 29418-9 ####[facility] LABCLIA [id number] [address] [address] [place] Cholesterol non HDL [Mass/Vol] 108 mg/dL Normal <130 [facility] Comment on above: Order Comment: Speci men Type: BLOOD SPECIMENOrdering Facility: [facility] Address: [address] [place] [address] Result Comment: <130 mg/dL, Optimal 130-159 mg/dL, Near optimal/above optimal 160-189 mg/dL, Borderline high 190-219 mg/dL, High >219 mg/dL, Very high Secondary prevention optimal non HDL Cholesterol levels are recommended to be <100 mg/dL Performed By: #### 2 4331-1, ####[facility] LABCLIA [id number] [address] [place] [address] [place] Cholesterol.total/Chol esterol in HDL [Mass ratio] 5.00 {ratio} Normal <5.10 [facility] Comment on above: Order Comment: Speci men Type: BLOOD SPECIMENOrdering Facility: [facility] Address: [address] [place] [address] Performed By: #### 2 433-, ####[facility] LABIA [id number] [address] [place] [address] [place] FASTING TIME 12 hrs Normal [facility] Comment on above: Order Comment: Speci men Type: BLOOD SPECIMENOrdering Facility: [facility] Address: [address] [place] [address] Performed By: #### 2 433-, ####[facility] LABIA [id number] [address] [place] [address] [place] Triglyceride [Mass/Vol] 256 mg/dL High <150 [facility] Comment on above: Order Comment: Speci men Type: BLOOD SPECIMENOrdering Facility: [facility] Address: [address] [place] [address] Result Comment: <150 mg/dL, Normal 150-199 mg/dL, Borderline high 200-499 mg/dL, High >499 mg/dL, Very high Performed By: #### 2 4331-, ####[facility] LABIA [id number] [address] [place] [address] [place] Hemoccult Stl Ql IAon 2024 Lower GI hemoglobin IA Ql (Stl) Negative Normal Negative [facility] Comment on above: Order Comment: Speci men Type: STOOL SPECIMENOrdering Facility: [facility] Address: [address] [place], [place] [address] Performed By: #### 2 9771-3 ####[facility] LABBRENNON [id number] [place] [address] [place] CNOVon 08-31-2024 CNOV Office Visit (PMNA11 ) NANCY ENAMORADO ([id number]) 1970 M Date Time Provider Department 08/31/24 2:30 PM RAISA HAN PMNA11 During your visit today, we recorded the following information about you: Temperature 97 degrees Jordan Alcala MA 09/01/2024 9:16 AM Signed Intake information documented in the prior visit with Genesis Spencer APRN.CNP today. ROSHAN Jordan Sarah, APRN.CNP 09/01/2024 9:16 AM Signed [facility] INCIDENTAL LUNG NODULE PROGRAM (Follow Up) Impression / Recommendations Mr. Enamorado presents for follow up on lung nodules. CT chest completed today was reviewed with patient. All lung nodules appear to be stable in size and again appearance is consistently with likely granulomatous exposure. The patient is feeling well with no respiratory complaints. We will plan to continue to monitor nodules with CT surveillance. 1. Lung nodules - ICD9: 793.19, ICD10: R91.8 - Advised repeat CT chest in 12 months. - CT CHEST WO IVCON 2. Calcified granuloma of lung - ICD9: 518.89, ICD10: J98.4 - CT scan showing multiple calcified nodules. Again,discussed likely granulomatous exposure. - Continue to monitor as patient is not having any respiratory symptoms at this time. The patient is in agreement with the above plan. All questions were answered to her apparent satisfaction. Raisa Han APRN.CNP --------- History of Present Illness Nancy Enamorado is a 53 year old male with a pertinent past medical history significant for No history of tobacco abuse who is being seen as a follow up for evaluation of a lung nodule(s). Nancy Enamorado had a Ct chest on 12/05/23 for the indication of incidental lung nodule on CXR. >5 nodules were detected Incidentally. The nodule of greatest concern is a Solid 2 mm nodule with a Smooth border in the Right middle lobe of the lung. Prior imaging: (Yes What type of prior imaging? CT Scan Was the nodule of concern seen on prior imaging? Yes Has the nodule of concern remained stable? Stable) Respiratory symptoms include: SOB: No Chest tightness: No Coughing: No Hemoptysis: No Wheezing: No Fever/Chills: No Recent Respiratory Infection: No No night sweats Unintentional weight loss: No Last 6 Encounter Wt Readings: Date: Wt: 08/31/2024 115.1 kg (253 lb 12 oz) 06/22/2024 112.2 kg (247 lb 5.7 oz) 03/03/2024 111.2 kg (245 lb 2.4 oz) 03/02/2024 110.6 kg (243 lb 13.3 oz) 03/02/2024 111.2 kg (245 lb 2.4 oz) 12/25/2023 110.6 kg (243 lb 13.3 oz) Modified Medical Research [place] Dyspnea Scale (MMRC) I only get breathless with strenous exercise 0 Problem List, History, Medications and allergies have been reviewed from the [facility] electronic medical record and any appropriate up-dates have been made. Physical Exam Temp 36.1 ?C (97 ?F) (Temporal) Physical Exam Vitals and nursing note reviewed. Constitutional: Appearance: Normal appearance. HENT: Head: Normocephalic and atraumatic. Nose: Nose normal. No rhinorrhea. Eyes: Conjunctiva/sclera: Conjunctivae normal. Cardiovascular: Rate and Rhythm: Normal rate. Pulmonary: Effort: Pulmonary effort is normal. No respiratory distress. Skin: General: Skin is warm and dry. Neurological: General: No focal deficit present. Mental Status: He is alert and oriented to person, place, and time. Psychiatric: Mood and Affect: Mood and affect normal. Behavior: Behavior normal. Diagnostic Data I have personally visualized, reviewed and analyzed the findings on pulmonary function testing and radiographs. Last CT/CTA Chest/Lungs CT CHEST WO IVCON Exam End: 08/31/2024 1:34 PM (Final result) Narrative: * * *Final Report* * * DATE OF EXAM: Aug 31 2024 1:34PM [facility] [place] CHEST WO IVCON / PROCEDURE REASON: Lung nodules * * * * Physician Interpretation * * * * EXAMINATION: CHEST CT WITHOUT CONTRAST CLINICAL HISTORY: Lung nodule Technique: Spiral CT acquisition of the chest from the thoracic inlet to the upper abdomen without contrast. MQ: CTCWO_6 CT Radiation dose: Integrated Dose-length product (DLP) for this visit = 707 mGy*cm CT Dose Reduction Employed: Automated exposure control (AEC) Comparison: 03/03/2024, 12/05/2019 RESULT: Limitations: None. Lines, tubes, and devices: None. Lung parenchyma and airways: No consolidation. Unchanged cluster of numerous calcified nodules in right lower lobe. No suspicious pulmonary nodule. The central airways are patent. Pleural space: No pleural effusion. No pleural thickening. Lower neck, lymph nodes, and mediastinum: The imaged thyroid gland is normal. No lymphadenopathy in the supraclavicular, axillary, mediastinal, or hilar regions. Heart, pericardium, and thoracic vessels: The (more content not included)... Normal [facility] NANCY ENAMORADO ([id number]) 1970 M Date Time Provider Department 08/31/24 11:40 AM [facility] During your visit today, we recorded the following information about you: Pulse Respiration Blood pressure Weight 79/minute 18/minute 114/78 115.1 kg Tj GenesisJACQUELINE 08/31/2024 12:03 PM Signed 08/31/2024 Patient presents with: 6 Month Exam SUBJECTIVE: This is a 53 year old that is here today for Above Complaints. DIABETES MELLITUS:Since our last visit he denies excessive thirst or increased frequency of urination, chest pain or dyspnea , numbness, tingling or pain in extremities, new or unusual visual symptoms, low sugar/hypoglycemic reactions, weight loss/gain, lightheadedness/dizziness, and bowel changes/loose stools. Follows a diabetic diet most of the time. He is compliant with medication(s) and is tolerating med(s) without any side effects. He reports checking his glucose on a once a day schedule with sugars in the 100-1teens range. Patient's last HgA1C was Hemoglobin A1C (%) Date Value 03/02/2024 5.5 08/23/2023 5.3 07/06/2021 6.0 08/11/2020 5.8 Hemoglobin A1C (POCT) (%) Date Value 05/30/2023 5.9 ) Last Ophthalmology exam was within the past 12 months JOSÉ MIGUEL/RLS: has upcoming sleep test. Uses CPAP but not tolerating. Follows with sleep medicine with last visit on 07/22/2024 HTN: Patient is compliant with meds Yes Monitors bp at home: Yes. Denies side effects: Yes. Chest pain: No. Dyspnea: No. Edema: No. Palpitations: No. Syncope: No. Headache: No. Dizziness: No. Depression: Taking Wellbutrin as prescribed without side effects. Works well to control symptoms. Denies SI or HI Follows with pulmonology for hx of lung nodules. Reports he has upcoming CT sca PAST MEDICAL HISTORY Diagnosis Date Achilles tendinosis of left lower extremity s/p repair BPH (benign prostatic hyperplasia) Diabetes mellitus type II (HCC) Erectile dysfunction Heel spur, left Hypertension Hypertriglyceridemia Hypogonadism in male Idiopathic neuropathy Lipoma of right shoulder 05/2023 JOSÉ MIGUEL (obstructive sleep apnea) 08/2020 RLS (restless legs syndrome) Dr Man Thrombosed hemorrhoids 11/2021 Vitamin D deficiency ALLERGIES Metformin MEDICATIONS Current Outpatient Medications Medication Sig semaglutide (OZEMPIC) 1 mg/dose (4 mg/3 mL) pen Inject 1 mg subcutaneously one time a week. methadone (DOLOPHINE) 5 mg tablet Take 1.5 tablets by mouth every evening for 30 days. Patient should start on July 25, 2024. methadone (DOLOPHINE) 5 mg tablet Take 1.5 tablets by mouth every evening for 30 days. Patient should start on August 24, 2024. [START ON 09/23/2024] methadone (DOLOPHINE) 5 mg tablet Take 1.5 tablets by mouth every evening for 30 days. Patient should start on September 23, 2024. Tadalafil (CIALIS) 5 mg tablet Take 1 tablet by mouth once daily. testosterone cypionate (DEPO-TESTOSTERONE) 200 mg/mL injection Inject 1 mL intramuscularly every 2 weeks for 180 days. lisinopril-hydroCHLOROthiaz kevin (ZESTORETIC) 20-12.5 mg per tablet Take 2 tablets by mouth once daily. buPROPion XL (WELLBUTRIN XL) 150 mg 24 hr tablet Take 1 tablet by mouth once daily. CPAP/BIPAP/OTHER Type .CPAPSettings into a note to see current settings/supplies/DME information. atorvastatin (LIPITOR) 20 mg tablet Take 1 tablet by mouth daily at bedtime. For cholesterol. blood sugar diagnostic (BLOOD GLUCOSE TEST) test strip Test blood sugar(s) 1-2 times daily. Dx: Type 2 DM - Uncontrolled E11.65 Insulin: No Lancets lancets Test blood sugar(s) 1-2 times daily. Dx: Type 2 DM - Uncontrolled E11.65 Insulin: No CPAP/BIPAP/OTHER Continue Auto CPAP with current settings of 8-15 cm H2O. Lifetime supplies for Auto CPAP, including patient preferred mask, head gear, heated tubing, humidity, filters, chin strap. Dx: Obstructive Sleep Apnea G47.33 DME: [employer] [facility] No current facility-administered medications for this visit. Medications and allergies reviewed by this provider. SOCIAL HISTORY Social History Tobacco Use Smoking status: Never Smokeless tobacco: Never Vaping Use Vaping status: Never Used Substance Use Topics Alcohol use: Yes Alcohol/week: 2.0 standard drinks of alcohol Types: 2 Cans of beer per week Drug use: Never REVIEW OF SYSTEMS All other reviewed and negative other than HPI. OBJECTIVE: BP 114/78 Pulse 79 Resp 18 Wt 115.1 kg (253 lb 12 oz) SpO2 96% BMI 34.41 kg/m? . Vital signs reviewed by this provider. APPEARANCE Well appearing, alert, in no acute distress, well-hydrated, well nourished. EYES PERRLA, conjunctiva and sclera normal. HEART RRR with normal S1 and S2, no murmurs, no gallops, no JVD appreciated LUNG clear to auscultation. No wheezes, rhonchi or rales EXTREMITIES Extremities ijeoma (more content not included)... Normal [facility] CT CHEST WO IVCONon 09-01-19 CT CHEST WO IVCON * * *Final Report* * * DATE OF EXAM: Aug 31 2024 1:34PM [facility] [place] CHEST WO IVCON / PROCEDURE REASON: Lung nodules * * * * Physician Interpretation * * * * EXAMINATION: CHEST CT WITHOUT CONTRAST CLINICAL HISTORY: Lung nodule Technique: Spiral CT acquisition of the chest from the thoracic inlet to the upper abdomen without contrast. MQ: CTCWO_6 CT Radiation dose: Integrated Dose-length product (DLP) for this visit = 707 mGy*cm CT Dose Reduction Employed: Automated exposure control (AEC) Comparison: 03/03/2024, 12/05/2019 RESULT: Limitations: None. Lines, tubes, and devices: None. Lung parenchyma and airways: No consolidation. Unchanged cluster of numerous calcified nodules in right lower lobe. No suspicious pulmonary nodule. The central airways are patent. Pleural space: No pleural effusion. No pleural thickening. Lower neck, lymph nodes, and mediastinum: The imaged thyroid gland is normal. No lymphadenopathy in the supraclavicular, axillary, mediastinal, or hilar regions. Heart, pericardium, and thoracic vessels: The thoracic aorta and main pulmonary artery are normal in caliber. The cardiac chambers are normal in size. Mild coronary artery atherosclerotic calcifications are noted, although the study is not optimized for coronary assessment. No pericardial effusion or thickening. Bones and soft tissues: No destructive bone lesion. Chest wall is unremarkable. Upper abdomen: No abnormality in the imaged upper abdomen. Localizer images: No additional findings. IMPRESSION: No CT evidence of acute abnormality. Unchanged cluster of calcified nodules in right lower lobe representing sequela of previous granulomatous process such as histoplasmosis. Veneer Stapler: MIRELAL Transcribe Date/Time: Aug 31 2024 1:43P Dictated by : JETT NOEL MD This examination was interpreted and the report reviewed and electronically signed by: JETT NOEL MD on Aug 31 2024 1:47PM EST [id number] Normal [facility] CT Chest WO contraston 08-31 IMPRESSION: No CT evidence of acute abnormality. Unchanged cluster of calcified nodules in right lower lobe representing sequela of previous granulomatous process such as histoplasmosis. Veneer Stapler: MIRELLA Transcribe Date/Time: Aug 31 2024 1:43P Dictated by : JETT NOEL MD This examination was interpreted and the report reviewed and electronically signed by: JETT NOEL MD on Aug 31 2024 1:47PM EST DIVISION OF RADIOLOGY * * *Final Report* * * DATE OF EXAM: Aug 31 2024 1:34PM [facility] [place] CHEST WO IVCON / PROCEDURE REASON: Lung nodules * * * * Physician Interpretation * * * * EXAMINATION: CHEST CT WITHOUT CONTRAST CLINICAL HISTORY: Lung nodule Technique: Spiral CT acquisition of the chest from the thoracic inlet to the upper abdomen without contrast. MQ: CTCWO_6 CT Radiation dose: Integrated Dose-length product (DLP) for this visit = 707 mGy*cm CT Dose Reduction Employed: Automated exposure control (AEC) Comparison: 03/03/2024, 12/05/2019 RESULT: Limitations: None. Lines, tubes, and devices: None. Lung parenchyma and airways: No consolidation. Unchanged cluster of numerous calcified nodules in right lower lobe. No suspicious pulmonary nodule. The central airways are patent. Pleural space: No pleural effusion. No pleural thickening. Lower neck, lymph nodes, and mediastinum: The imaged thyroid gland is normal. No lymphadenopathy in the supraclavicular, axillary, mediastinal, or hilar regions. Heart, pericardium, and thoracic vessels: The thoracic aorta and main pulmonary artery are normal in caliber. The cardiac chambers are normal in size. Mild coronary artery atherosclerotic calcifications are noted, although the study is not optimized for coronary assessment. No pericardial effusion or thickening. Bones and soft tissues: No destructive bone lesion. Chest wall is unremarkable. Upper abdomen: No abnormality in the imaged upper abdomen. Localizer images: No additional findings. DIVISION OF RADIOLOGY Provider, [facility] - 08/31/2024 * * *Final Report* * * DATE OF EXAM: Aug 31 2024 1:34PM [facility] [place] - CT CHEST WO IVCON / PROCEDURE REASON: Lung nodules * * * * Physician Interpretation * * * * EXAMINATION: CHEST CT WITHOUT CONTRAST CLINICAL HISTORY: Lung nodule Technique: Spiral CT acquisition of the chest from the thoracic inlet to the upper abdomen without contrast. MQ: CTCWO_6 CT Radiation dose: Integrated Dose-length product (DLP) for this visit = 707 mGy*cm CT Dose Reduction Employed: Automated exposure control (AEC) Comparison: 03/03/2024, 12/05/2019 RESULT: Limitations: None. Lines, tubes, and devices: None. Lung parenchyma and airways: No consolidation. Unchanged cluster of numerous calcified nodules in right lower lobe. No suspicious pulmonary nodule. The central airways are patent. Pleural space: No pleural effusion. No pleural thickening. Lower neck, lymph nodes, and mediastinum: The imaged thyroid gland is normal. No lymphadenopathy in the supraclavicular, axillary, mediastinal, or hilar regions. Heart, pericardium, and thoracic vessels: The thoracic aorta and main pulmonary artery are normal in caliber. The cardiac chambers are normal in size. Mild coronary artery atherosclerotic calcifications are noted, although the study is not optimized for coronary assessment. No pericardial effusion or thickening. Bones and soft tissues: No destructive bone lesion. Chest wall is unremarkable. Upper abdomen: No abnormality in the imaged upper abdomen. Localizer images: No additional findings. IMPRESSION IMPRESSION: No CT evidence of acute abnormality. Unchanged cluster of calcified nodules in right lower lobe representing sequela of previous granulomatous process such as histoplasmosis. Veneer Stapler: PSCB Transcribe Date/Time: Aug 31 2024 1:43P Dictated by : JETT NOEL MD This examination was interpreted and the report reviewed and electronically signed by: JETT NOEL MD on Aug 31 2024 1:47PM EST [facility] Radiology Study observation (narrative) [facility] CT Chest WO contrastOrdered By: [facility]cf Provider on 08-31-2024 [facility] CNOVon 06-22-2024 CNOV Office Visit ([facility] ) NANCY ENAMORADO ([id number]) 1970 M Date Time Provider Department 06/22/24 4:30 PM SUBHA NIKKO [facility] During your visit today, we recorded the following information about you: Temperature Pulse Respiration Blood pressure 97.2 degrees 88/minute 16/minute 124/76 Weight 112.2 kg Nikko Mascorro, [employer] 06/22/2024 4:42 PM Signed CC: Patient presents with: Chest Congestion: cough, chills, burning in sinus and chest x 3 days HPI: Nancy Enamorado is a 53 year old male who presents to the office with complaint of chest congestion, cough, nonproductive, and fever for a few days. Symptoms are staying the same. Associated symptoms includes chills. Denies wheezing, dyspnea, nausea, vomiting , and diarrhea. Treatments tried include nothing so far. with no relief of symptoms. Sick contacts: unknown. History of asthma, frequent episodes of bronchitis, chronic bronchitis, bronchiectasis or COPD: No Smoker: No Seasonal/environmental allergies: No The ROS is otherwise negative. The patient's pmh, medications, allergies, and past visits are reviewed. PHYSICAL EXAM: BP 124/76 Pulse 88 Temp 36.2 ?C (97.2 ?F) Resp 16 Wt 112.2 kg (247 lb 5.7 oz) SpO2 96% BMI 33.54 kg/m? General appearance: alert, cooperative, pleasant, in no acute distress Head: Normocephalic Eyes: EOM's intact, conjunctiva pink and moist, no icterus, sclera white, non-injected Ears: Right ear: External ear/canal- Normal, TM - clear with good landmarks. Left ear: External ear/canal- Normal, TM - clear with good landmarks Oropharynx:moist without lesions, No erythema, exudates or tonsillar hypertrophy. Heart: Negative. RRR without obvious murmur, gallop, or rubs. No ectopy. Lungs: clear to auscultation, without rales or wheeze, good air exchange PAST MEDICAL HISTORY Diagnosis Date Achilles tendinosis of left lower extremity s/p repair BPH (benign prostatic hyperplasia) Diabetes mellitus type II (HCC) Erectile dysfunction Heel spur, left Hypertension Hypertriglyceridemia Hypogonadism in male Idiopathic neuropathy Lipoma of right shoulder 05/2023 JOSÉ MIGUEL (obstructive sleep apnea) 08/2020 RLS (restless legs syndrome) Dr Man Thrombosed hemorrhoids 11/2021 Vitamin D deficiency PAST SURGICAL HISTORY Procedure Laterality Date APPENDECTOMY ARTHROSCOPY KNEE DIAGNOSTIC W/WO SYNOVIAL BX SPX Left Arthroscopy, knee BX OF BREAST; INCISIONAL Right 06/12/[address] right posterior shoulder by Dr. Ball CHOLECYSTECTOMY HX HERNIA REPAIR HX Bilateral inguinal hernia, congenital NEUROPLASTY AND/TRANSPOS MEDIAN NRV CARPAL TUNNE Carpal tunnel decomp bilateral PAST SURGICAL HISTORY OF 07/30/2019 repair bone spur achilles left foot PAST SURGICAL HISTORY OF Left 08/21/2021 achilles tendon repair PAST SURGICAL HISTORY OF 12/05/2021 hemorrhoidectomy PAST SURGICAL HISTORY OF 06/12/2023 right shoulder lipoma removed SKIN BIOPSY HX TONSILLECTOMY HX TONSILLECTOMY PRIMARY/SECONDARY Tonsillectomy ALLERGIES Metformin MEDICATIONS [START ON 06/25/2024] methadone (DOLOPHINE) 5 mg tablet Take 1.5 tablets by mouth every evening for 30 days. Patient should start on June 25, 2024. semaglutide (OZEMPIC) 1 mg/dose (4 mg/3 mL) pen Inject 1 mg subcutaneously one time a week. testosterone cypionate (DEPO-TESTOSTERONE) 200 mg/mL injection Inject 1 mL intramuscularly every 2 weeks for 180 days. lisinopril-hydroCHLOROthiaz kevin (ZESTORETIC) 20-12.5 mg per tablet Take 2 tablets by mouth once daily. buPROPion XL (WELLBUTRIN XL) 150 mg 24 hr tablet Take 1 tablet by mouth once daily. methadone (DOLOPHINE) 5 mg tablet Take 1.5 tablets by mouth every evening for 30 days. Patient should start on May 26, 2024. CPAP/BIPAP/OTHER Type .CPAPSettings into a note to see current settings/supplies/DME information. atorvastatin (LIPITOR) 20 mg tablet Take 1 tablet by mouth daily at bedtime. For cholesterol. blood sugar diagnostic (BLOOD GLUCOSE TEST) test strip Test blood sugar(s) 1-2 times daily. Dx: Type 2 DM - Uncontrolled E11.65 Insulin: No Lancets lancets Test blood sugar(s) 1-2 times daily. Dx: Type 2 DM - Uncontrolled E11.65 Insulin: No CPAP/BIPAP/OTHER Continue Auto CPAP with current settings of 8-15 cm H2O. Lifetime supplies for Auto CPAP, including patient preferred mask, head gear, heated tubing, humidity, filters, chin strap. Dx: Obstructive Sleep Apnea G47.33 DME: [employer] [facility] methadone (DOLOPHINE) 5 mg tablet Take 1.5 tablets by mouth every evening for 30 days. Patient should start on April 26, 2024. Tadalafil (CIALIS) 5 mg tablet Take 1 tablet by mouth once daily. FAMILY HISTORY Problem Relation Age of Onset COPD Mother Cancer Mother lung Heart disease Father Cancer Father lung, liver, kidney, colon Depression Father Anxiety disorder (more content not included)... Normal [facility] CT Chest WO contraston 03-03 IMPRESSION: 1. Unchanged multiple calcified and noncalcified centrilobular nodules in the right lower lobe with associated ipsilateral right calcified hilar lymph node. Findings are suggestive of an infectious granulomatous process such as histoplasmosis. 2. Few small (less than 6 mm) noncalcified pulmonary nodules, stable since prior. Veneer Stapler: PSCB Transcribe Date/Time: Mar 03 2024 1:26P Dictated by : ANABELA ESPARZA MD This examination was interpreted and the report reviewed and electronically signed by: TARIK CHEUNG MD on Mar 03 2024 4:40PM [facility] DIVISION OF RADIOLOGY * * *Final Report* * * DATE OF EXAM: Mar 03 2024 12:36PM [facility] 0541 - CT CHEST WO IVCON / PROCEDURE REASON: Lung nodules * * * * Physician Interpretation * * * * EXAMINATION: CHEST CT WITHOUT CONTRAST CLINICAL HISTORY: Lung nodules follow up. Never smoker. Technique: Spiral CT acquisition of the chest from the thoracic inlet to the upper abdomen without contrast. MQ: CTCWO_6 CT Radiation dose: Integrated Dose-length product (DLP) for this visit = 375 mGy*cm CT Dose Reduction Employed: mAs-kVp adjusted based on patient size-age Comparison: Chest CT dated 12/05/2023 RESULT: Limitations: None. Lines, tubes, and devices: None. Lung parenchyma and airways: Unchanged multiple noncalcified and calcified centrilobular nodules in the anterior right lower lobe. Few small noncalcified pulmonary nodules, stable since prior. For reference, 3 mm nodule in the medial right upper lobe (3:54), and 4 mm nodule in the lingula (3:116). The central airways are patent. No endobronchial lesion. Pleural space: No pleural effusion, pleural thickening or pneumothorax. Lower neck, lymph nodes, and mediastinum: The imaged thyroid gland is unremarkable. Calcified subcentimeter right hilar lymph node, suggestive of remote granulomatous disease. No lymphadenopathy in the supraclavicular, axillary, mediastinal, or hilar regions. The esophagus is nondilated. Heart, pericardium, and thoracic vessels: The thoracic aorta is normal in caliber. The main pulmonary artery is top normal in caliber measuring up to 2.9 cm in diameter. The cardiac chambers are normal in size. Moderate coronary artery atherosclerotic calcifications in LAD distribution are noted, although the study is not optimized for coronary assessment. No pericardial effusion or thickening. Bones and soft tissues: Degenerative changes of thoracic spine. No destructive bone lesion. Chest wall is unremarkable. Upper abdomen: Multiple scattered calcified splenic granulomas. Status post cholecystectomy. Localizer images: No additional findings. DIVISION OF RADIOLOGY Provider, [facility] - 03/03/2024 * * *Final Report* * * DATE OF EXAM: Mar 03 2024 12:36PM [facility] 0541 - CT CHEST WO IVCON / PROCEDURE REASON: Lung nodules * * * * Physician Interpretation * * * * EXAMINATION: CHEST CT WITHOUT CONTRAST CLINICAL HISTORY: Lung nodules follow up. Never smoker. Technique: Spiral CT acquisition of the chest from the thoracic inlet to the upper abdomen without contrast. MQ: CTCWO_6 CT Radiation dose: Integrated Dose-length product (DLP) for this visit = 375 mGy*cm CT Dose Reduction Employed: mAs-kVp adjusted based on patient size-age Comparison: Chest CT dated 12/05/2023 RESULT: Limitations: None. Lines, tubes, and devices: None. Lung parenchyma and airways: Unchanged multiple noncalcified and calcified centrilobular nodules in the anterior right lower lobe. Few small noncalcified pulmonary nodules, stable since prior. For reference, 3 mm nodule in the medial right upper lobe (3:54), and 4 mm nodule in the lingula (3:116). The central airways are patent. No endobronchial lesion. Pleural space: No pleural effusion, pleural thickening or pneumothorax. Lower neck, lymph nodes, and mediastinum: The imaged thyroid gland is unremarkable. Calcified subcentimeter right hilar lymph node, suggestive of remote granulomatous disease. No lymphadenopathy in the supraclavicular, axillary, mediastinal, or hilar regions. The esophagus is nondilated. Heart, pericardium, and thoracic vessels: The thoracic aorta is normal in caliber. The main pulmonary artery is top normal in caliber measuring up to 2.9 cm in diameter. The cardiac chambers are normal in size. Moderate coronary artery atherosclerotic calcifications in LAD distribution are noted, although the study is not optimized for coronary assessment. No pericardial effusion or thickening. Bones and soft tissues: Degenerative changes of thoracic spine. No destructive bone lesion. Chest wall is unremarkable. Upper abdomen: Multiple scattered calcified splenic granulomas. Status post cholecystectomy. Localizer images: No additional findings. IMPRESSION IMPRESSION: 1. Unchanged multiple calcified and noncalcified centrilobular nodules in the right lower lobe with associated ipsilateral right calcified hilar lymph node. Findings are suggestive of an infectious granulomatous process such as histoplasmosis. 2. Few small (less than 6 mm) noncalcified pulmonary nodules, stable since prior. Veneer Stapler: PSCB Transcribe Date/Time: Mar 03 2024 1:26P Dictated by : ANABELA ESPARZA MD This examination was interpreted and the report reviewed and electronically signed by: TARIK CHEUNG MD on Mar 03 2024 4:40PM [facility] Radiology Study observation (narrative) [facility] CT Chest WO contrastOrdered By: Ccf Provider on 03-03-[address] [facility] [address] CHEST WO IVCONon 12-05-19 CT CHEST WO IVCON * * *Final Report* * * DATE OF EXAM: Dec 05 2023 1:18PM [facility] [place] 0541 - CT CHEST WO IVCON / PROCEDURE REASON: Abnormal chest x-ray with multiple lung nodules * * * * Physician Interpretation * * * * EXAMINATION: CHEST CT WITHOUT CONTRAST CLINICAL HISTORY: Increasing lung nodules Technique: Spiral CT acquisition of the chest from the thoracic inlet to the upper abdomen without contrast. MQ: CTCWO_6 CT Radiation dose: Integrated Dose-length product (DLP) for this visit = 610.41 mGy*cm CT Dose Reduction Employed: Automated exposure control(AEC) and iterative recon Comparison: Chest x-ray 12/05/2023, chest x-ray 11/26/2023 RESULT: Limitations: None. Lines, tubes, and devices: None. Lung parenchyma and airways: The central airways are patent. There are multiple centrilobular nodules within the anterior segment of the right lower lobe, some appearing calcified. No additional pulmonary nodule or focal area of consolidation. Pleural space: No pleural effusion. No pneumothorax. Lower neck, lymph nodes, and mediastinum: The imaged thyroid gland is normal. No mediastinal, supraclavicular, or axillary adenopathy. Suboptimal assessment of the hilar lymph nodes due to lack of IV contrast. However, there is a single nonenlarged calcified right hilar lymph node. Unremarkable esophagus. Heart, pericardium, and thoracic vessels: The thoracic aorta and main pulmonary artery are normal in caliber. The cardiac chambers are normal in size. Mild coronary artery atherosclerotic calcifications are noted, although the study is not optimized for coronary assessment. No pericardial effusion or thickening. Bones and soft tissues: No acute abnormality. Degenerative changes within the spine. Upper abdomen: Multiple calcifications within the spleen. Subcentimeter right renal cyst. Surgically absent gallbladder. Localizer images: No additional contributory findings. IMPRESSION: There are multiple centrilobular pulmonary nodules within the anterior segment of the right lower lobe, some appearing calcified. These findings may represent acute on chronic bronchiolitis. A 3 month follow-up is recommended. Veneer Stapler: MIRELLA Transcribe Date/Time: Dec 05 2023 2:06P Dictated by : CHRISSY RODRIGUEZ, This examination was interpreted and the report reviewed and electronically signed by: CHRISSY ORDRIGUEZ, on Dec 05 2023 2:28PM EST [id number] [facility] CT Chest WO contraston 12-04 IMPRESSION: There are multiple centrilobular pulmonary nodules within the anterior segment of the right lower lobe, some appearing calcified. These findings may represent acute on chronic bronchiolitis. A 3 month follow-up is recommended. Veneer Stapler: MIRELLA Transcribe Date/Time: Dec 05 2023 2:06P Dictated by : CHRISSY RODRIGUEZ, This examination was interpreted and the report reviewed and electronically signed by: CHRISSY RODRIGUEZ on Dec 05 2023 2:28PM EST [facility] * * *Final Report* * * DATE OF EXAM: Dec 05 2023 1:18PM [facility] 0541 - CT CHEST WO IVCON / PROCEDURE REASON: Abnormal chest x-ray with multiple lung nodules * * * * Physician Interpretation * * * * EXAMINATION: CHEST CT WITHOUT CONTRAST CLINICAL HISTORY: Increasing lung nodules Technique: Spiral CT acquisition of the chest from the thoracic inlet to the upper abdomen without contrast. MQ: CTCWO_6 CT Radiation dose: Integrated Dose-length product (DLP) for this visit = 610.41 mGy*cm CT Dose Reduction Employed: Automated exposure control(AEC) and iterative recon Comparison: Chest x-ray 12/05/2023, chest x-ray 11/26/2023 RESULT: Limitations: None. Lines, tubes, and devices: None. Lung parenchyma and airways: The central airways are patent. There are multiple centrilobular nodules within the anterior segment of the right lower lobe, some appearing calcified. No additional pulmonary nodule or focal area of consolidation. Pleural space: No pleural effusion. No pneumothorax. Lower neck, lymph nodes, and mediastinum: The imaged thyroid gland is normal. No mediastinal, supraclavicular, or axillary adenopathy. Suboptimal assessment of the hilar lymph nodes due to lack of IV contrast. However, there is a single nonenlarged calcified right hilar lymph node. Unremarkable esophagus. Heart, pericardium, and thoracic vessels: The thoracic aorta and main pulmonary artery are normal in caliber. The cardiac chambers are normal in size. Mild coronary artery atherosclerotic calcifications are noted, although the study is not optimized for coronary assessment. No pericardial effusion or thickening. Bones and soft tissues: No acute abnormality. Degenerative changes within the spine. Upper abdomen: Multiple calcifications within the spleen. Subcentimeter right renal cyst. Surgically absent gallbladder. Localizer images: No additional contributory findings. [facility] Provider, Cuauhtemoc Valiente - 12/05/2023 * * *Final Report* * * DATE OF EXAM: Dec 05 2023 1:18PM [facility] 0541 - CT CHEST WO IVCON / PROCEDURE REASON: Abnormal chest x-ray with multiple lung nodules * * * * Physician Interpretation * * * * EXAMINATION: CHEST CT WITHOUT CONTRAST CLINICAL HISTORY: Increasing lung nodules Technique: Spiral CT acquisition of the chest from the thoracic inlet to the upper abdomen without contrast. MQ: CTCWO_6 CT Radiation dose: Integrated Dose-length product (DLP) for this visit = 610.41 mGy*cm CT Dose Reduction Employed: Automated exposure control(AEC) and iterative recon Comparison: Chest x-ray 12/05/2023, chest x-ray 11/26/2023 RESULT: Limitations: None. Lines, tubes, and devices: None. Lung parenchyma and airways: The central airways are patent. There are multiple centrilobular nodules within the anterior segment of the right lower lobe, some appearing calcified. No additional pulmonary nodule or focal area of consolidation. Pleural space: No pleural effusion. No pneumothorax. Lower neck, lymph nodes, and mediastinum: The imaged thyroid gland is normal. No mediastinal, supraclavicular, or axillary adenopathy. Suboptimal assessment of the hilar lymph nodes due to lack of IV contrast. However, there is a single nonenlarged calcified right hilar lymph node. Unremarkable esophagus. Heart, pericardium, and thoracic vessels: The thoracic aorta and main pulmonary artery are normal in caliber. The cardiac chambers are normal in size. Mild coronary artery atherosclerotic calcifications are noted, although the study is not optimized for coronary assessment. No pericardial effusion or thickening. Bones and soft tissues: No acute abnormality. Degenerative changes within the spine. Upper abdomen: Multiple calcifications within the spleen. Subcentimeter right renal cyst. Surgically absent gallbladder. Localizer images: No additional contributory findings. IMPRESSION IMPRESSION: There are multiple centrilobular pulmonary nodules within the anterior segment of the right lower lobe, some appearing calcified. These findings may represent acute on chronic bronchiolitis. A 3 month follow-up is recommended. Veneer Stapler: MIRELLA Transcribe Date/Time: Dec 05 2023 2:06P Dictated by : CHRISSY RODRIGUEZ, This examination was interpreted and the report reviewed and electronically signed by: CHRISSY RODRIGUEZ, on Dec 05 2023 2:28PM EST [facility] Radiology Study observation (narrative) [facility] CT Chest WO contrastOrdered By: [facility] Provider on 12-05-2023 [facility] XR Chest PA and Lateralon IMPRESSION: Interval worsening of nodular opacities overlying the right lower lung. A dedicated CT chest study may be obtained for further evaluation. Veneer Stapler: PSCRafi Transcribe Date/Time: Dec 05 2023 10:39A Dictated by : PIO AVILA MD This examination was interpreted and the report reviewed and electronically signed by: PIO AVILA MD on Dec 05 2023 10:41AM [facility] DIVISION OF RADIOLOGY * * *Final Report* * * DATE OF EXAM: Dec 05 2023 8:45AM [facility]OX 5291 - XR CHEST 2V FRONTAL/LAT / PROCEDURE REASON: Abnormal chest x-ray * * * * Physician Interpretation * * * * EXAMINATION: CHEST RADIOGRAPH (2 VIEW FRONTAL & LATERAL) CLINICAL HISTORY: Abnormal chest x-ray MQ: XC2_6 EXAM DATE/TIME: 12/05/2023 8:45 AM COMPARISON: Chest x-ray on 11/26/2023 RESULT: Lines, tubes, and devices: None. Lungs and pleura: Interval worsening of nodular opacities overlying the right lower lung including a dominant nodule. The left lung is clear. No pleural effusions or pneumothorax. Cardiomediastinal silhouette: Normal cardiomediastinal silhouette. Bones and soft tissues: There are degenerative changes in the spine. DIVISION OF RADIOLOGY Provider, [facility] - 12/05/2023 * * *Final Report* * * DATE OF EXAM: Dec 05 2023 8:45AM [facility] 5291 - XR CHEST 2V FRONTAL/LAT / PROCEDURE REASON: Abnormal chest x-ray * * * * Physician Interpretation * * * * EXAMINATION: CHEST RADIOGRAPH (2 VIEW FRONTAL & LATERAL) CLINICAL HISTORY: Abnormal chest x-ray MQ: XC2_6 EXAM DATE/TIME: 12/05/2023 8:45 AM COMPARISON: Chest x-ray on 11/26/2023 RESULT: Lines, tubes, and devices: None. Lungs and pleura: Interval worsening of nodular opacities overlying the right lower lung including a dominant nodule. The left lung is clear. No pleural effusions or pneumothorax. Cardiomediastinal silhouette: Normal cardiomediastinal silhouette. Bones and soft tissues: There are degenerative changes in the spine. IMPRESSION IMPRESSION: Interval worsening of nodular opacities overlying the right lower lung. A dedicated CT chest study may be obtained for further evaluation. Veneer Stapler: MIRELLA Transcribe Date/Time: Dec 05 2023 10:39A Dictated by : PIO AVILA MD This examination was interpreted and the report reviewed and electronically signed by: PIO AVILA MD on Dec 05 2023 10:41AM EST [facility] Radiology Study observation (narrative) [facility] XR Chest PA and LateralOrder ed By: [facility] Provider on 12-05-2023 [facility] XR Chest PA and Lateralon IMPRESSION: Subcentimeter nodule versus summation shadow overlying the right lower lung. Consider follow-up. Veneer Stapler: MIRELLA Transcribe Date/Time: Nov 26 2023 9:51A Dictated by : PIO AVILA MD This examination was interpreted and the report reviewed and electronically signed by: PIO AVILA MD on Nov 26 2023 9:53AM [facility] DIVISION OF RADIOLOGY * * *Final Report* * * DATE OF EXAM: Nov 26 2023 8:28AM [facility] 5291 - XR CHEST 2V FRONTAL/LAT / PROCEDURE REASON: multiple diagnoses * * * * Physician Interpretation * * * * EXAMINATION: CHEST RADIOGRAPH (2 VIEW FRONTAL & LATERAL) CLINICAL HISTORY: Nausea Diaphoresis MQ: XC2_6 EXAM DATE/TIME: 11/26/2023 8:28 AM COMPARISON: No relevant prior studies available. RESULT: Lines, tubes, and devices: None. Lungs and pleura: A subcentimeter nodule versus summation shadow projecting over the right lower lung. No consolidation. No lung mass. No pleural effusion. No pneumothorax. Cardiomediastinal silhouette: Normal cardiomediastinal silhouette. Bones and soft tissues: Unremarkable. DIVISION OF RADIOLOGY Provider, [facility] - 11/26/2023 * * *Final Report* * * DATE OF EXAM: Nov 26 2023 8:28AM [facility]OX 5291 - XR CHEST 2V FRONTAL/LAT / PROCEDURE REASON: multiple diagnoses * * * * Physician Interpretation * * * * EXAMINATION: CHEST RADIOGRAPH (2 VIEW FRONTAL & LATERAL) CLINICAL HISTORY: Nausea Diaphoresis MQ: XC2_6 EXAM DATE/TIME: 11/26/2023 8:28 AM COMPARISON: No relevant prior studies available. RESULT: Lines, tubes, and devices: None. Lungs and pleura: A subcentimeter nodule versus summation shadow projecting over the right lower lung. No consolidation. No lung mass. No pleural effusion. No pneumothorax. Cardiomediastinal silhouette: Normal cardiomediastinal silhouette. Bones and soft tissues: Unremarkable. IMPRESSION IMPRESSION: Subcentimeter nodule versus summation shadow overlying the right lower lung. Consider follow-up. Veneer Stapler: PSCB Transcribe Date/Time: Nov 26 2023 9:51A Dictated by : PIO AVILA MD This examination was interpreted and the report reviewed and electronically signed by: PIO AVILA MD on Nov 26 2023 9:53AM EST [facility] Radiology Study observation (narrative) [facility] XR Chest PA and LateralOrder ed By: [facility] Provider on 11-26-2023 [facility] OPERATIVE NOon 06-13-2023 OPERATIVE NO HNO ID: [id number] Author: Luci Ball MD Service: General Surgery Author Type: Physician Type: Operative Report Filed: 06/14/2023 7:04 AM Note Text: [facility] - Operative Report - NANCY Merino : 1970 AGE: 52. SEX: M PATIENT TYPE: A HOSP SVC: [facility] LOCATION: [facility] ATTENDING PHYSICIAN: Luci Ball MD CSN NUMBER: [id number] DATE OF SURGERY/PROCEDURE: 06/12/2023 INCISION/PROCEDURE START TIME: 12:52 PM INCISION CLOSE/PROCEDURE END TIME: 1:14 PM PREOPERATIVE DIAGNOSIS: posterior right shoulder subfascial lipoma. POSTOPERATIVE DIAGNOSIS: subfascial lipoma of posterior right shoulder SURGEON: Luci Ball MD RETAIL GROCER: No Additional Staff SURGERY/PROCEDURE: Excision of posterior right shoulder area subfascial lipoma ANESTHESIA: Monitored anesthesia care and local anesthesia. LOCATION: [facility]. INDICATIONS: Nancy Enamorado is a 52-year-old white male presents with a symptomatic posterior right shoulder lipoma which is causing him discomfort. He therefore requests excision. He has been counseled on the risks of the procedure including, but not limited to, infection, bleeding, injury to any blood vessels or nerves, scar tissue, cosmetic deformity, etc. The patient understands and agrees to proceed. DESCRIPTION OF PROCEDURE: After informed consent was given, patient was brought to the operating room. He was placed in the left lateral decubitus position. Appropriate time-out protocol was followed. The patient was given IV conscious sedation. The posterior shoulder area was then prepped with sterile surgical skin preparation. Appropriate sterile surgical drapes were placed. The skin and subcu tissues were infiltrated local anesthesia. A transverse skin incision was made over the overlying mass with a 15 blade scalpel. It was carried down through subcutaneous tissues using electrocautery. Weitlaner retractor was used for increased operative exposure. The subcutaneous tissues were then bluntly dissected. The lesion was beneath the fascia, therefore, the fascia was incised. The lipoma had interdigitations in the surrounding fibrous tissue. The interdigitations were bluntly dissected out so that all the lipomatous tissue could be removed from this area. The tissue mass to 3.7 cm in maximum dimension. It was then forwarded to Pathology for analysis. Hemostasis was carefully controlled with electrocautery. The fascia was then reapproximated using Vicryl suture in interrupted simple fashion. Skin incision was closed with 4-0 Monocryl in a running subcuticular fashion. Benzoin and Steri-Strips were used to reinforce the skin closure. Proper sterile dressings were applied. The patient tolerated the procedure well. He was brought to recovery room in stable condition. ESTIMATED BLOOD LOSS: Less than 3 mL. SPECIMENS: Lipoma. COMPLICATIONS: None. Luci Ball MD LW:[id number] /[id number] Normal [facility] ANES POSTPROC EVALon 06-12-2 023 ANES POSTPROC EVAL HNO ID: [id number] Author: Anette Murphy APRN.ANCHOR TACK PULLER Service: Anesthesiology Author Type: Nurse Risk Control Analyst Type: Anesthesia Postprocedure Evaluation Filed: 06/12/2023 1:26 PM Note Text: POST ANESTHESIA EVALUATION NOTE : 1970 Procedure Summary Date: 06/12/23 Room / Location: OR OR Anesthesia Start: 1246 Anesthesia Stop: 1325 Procedure: EXCISION LIPOMA BACK (Right: Shoulder) Diagnosis: Lipoma of other specified sites (Lipoma of other specified sites [D17.79]) Surgeons: Luci Ball MD Responsible Provider: Anette Murphy APRN.ANCHOR TACK PULLER Anesthesia Type: MAC ASA Status: 3 Anesthesia Type: MAC Last Vitals Vitals Value Taken Time BP 106/64 06/12/23 1322 Temp 06/12/23 1325 Pulse 94 06/12/23 1325 Resp 11 06/12/23 1325 SpO2 94 % 06/12/23 1325 Vitals shown include unfiled device data. Post Anesthesia Patient Status Patient Evaluation: PACU. Anticipated Disposition: phase 2 then home. Neurological Status: aware and responsive. Pulmonary Status: breathing comfortably on room air Airway Control: returned to baseline unsupported. Cardiovascular Status: stable. Pain Management: clinically adequate Postoperative Hydration: acceptable. Intraoperative Events: no significant anesthesia events Post Operative Nausea/Vomiting Status: no significant post operative nausea or vomiting Recommendation: continue current plan of care. Anesthesia Observations No Documentation SIGNATURE: Anette Murphy APRN.ANCHOR TACK PULLER PATIENT NAME: Nancy Enamorado DATE: June 12, 2023 TIME: 1:25 PM CSN: [id number] [facility] ANES PRE-OPon 06-12-2023 ANES PRE-OP HNO ID: [id number] Author: Anette Murphy APRN.CRNA Service: Anesthesiology Author Type: Nurse Risk Control Analyst Type: Anesthesia Preprocedure Evaluation Filed: 06/12/2023 12:16 PM Note Text: ANESTHESIOLOGY DAY OF SURGERY NOTE : 1970 Procedure Information Date/Time: 06/12/23 1215 Procedure: EXCISION LIPOMA BACK (Right: Shoulder) Location: OR OR Surgeons: Luci Ball MD Estimated body mass index is 33.63 kg/m? as calculated from the following: Height as of this encounter: 182.9 cm (6'). Weight as of this encounter: 112.5 kg (248 lb). Most recent hematocrit and potassium results: Hematocrit 42.6 03/03/2023 Potassium 3.9 03/03/2023 Relevant Problems ANESTHESIA (+) JOSÉ MIGUEL (obstructive sleep apnea) CARDIO (+) Hypertension ENDO (+) Diabetes mellitus type II (HCC) PULMONARY (+) JOSÉ MIGUEL (obstructive sleep apnea) I - PHYSICAL EVALUATION AIRWAY Patient intubated: No. Tracheostomy tube not present Mallampati: III. TM distance: >3 FB. Neck ROM: full ROM without neurological symptoms. Mouth opening: adequate. Short neck: no. Thick neck: no Broderick present: no Lip Bite Test: I Microretrognathia/Micronagt hia/Recessed Chin: No DENTAL Normal dental observations. Additional exam findings: no II - ANESTHESIA PLAN ASA Score: 3 Anesthetic Plan: MAC The patient is not a current smoker. NPO Status: adequate Beta Rosa Isela Administration of chronic beta rosa isela medication not planned. Monitoring Plan Monitoring plan: standard ASA. Post Procedure Analgesic Plan Postoperative analgesic plan: per surgical service. Informed Consent Anesthetic risks, benefits, alternatives, personnel and consent discussed: yes. Patient / Responsible Green Party agrees to proceed: yes Patient / Surrogate agrees to blood products: blood products not planned DNR status reviewed with patient and/or family prior to surgery. patient elects to suspend DNR status in the perioperative setting (Full Code). Significant changes in the patient condition since the History and Physical, not otherwise documented in primary service progress note: no. Potential Anesthesia issues that may suggest increased risk of complications or contraindication to planned procedure: none and potential difficult intubation. Discussed the possibility of lip / dental damage: yes Vitals Value Taken Time BP 126/92 06/12/23 1019 Pulse 77 06/12/23 1019 Resp 11 06/12/23 1019 Temp 36.2 ?C (97.1 ?F) 06/12/23 1019 SpO2 97 % 06/12/23 1019 Facility-Administered Medications as of 06/12/2023 Medication Dose Route Frequency - lidocaine (PF) 10 mg/mL (1 %) 1-2 mg injection (XYLOCAINE) 0.1-0.2 mL INTRADERMAL PRN - lactated ringers iv infusion 5-30 mL/hr INTRAVENOUS CONTINUOUS - NaCl 0.9% iv flush bag 20 mL INTRAVENOUS PRN Outpatient Medications as of 06/12/2023 Medication Sig - Tadalafil (CIALIS) 5 mg tablet Take 1 tablet by mouth once daily. - blood sugar diagnostic (BLOOD GLUCOSE TEST) test strip Test blood sugar(s) 1-2 times daily. Dx: Type 2 DM - Uncontrolled E11.65 Insulin: No - Lancets lancets Test blood sugar(s) 1-2 times daily. Dx: Type 2 DM - Uncontrolled E11.65 Insulin: No - lisinopril-hydroCHLOROthiaz kevin (ZESTORETIC) 20-12.5 mg per tablet Take 2 tablets by mouth once daily. - CPAP/BIPAP/OTHER Continue Auto CPAP with current settings of 8-15 cm H2O. Lifetime supplies for Auto CPAP, including patient preferred mask, head gear, heated tubing, humidity, filters, chin strap. Dx: Obstructive Sleep Apnea G47.33 DME: Jacob Conrad - CPAP Provide lifetime supplies for AutoPAP 8-15 cm H20 including nasal pillow mask, heated tubing, humidity, filters and fax download report to assess residual AHI to [phone]. Dx: G47.33 - atorvastatin (LIPITOR) 20 mg tablet Take 1 tablet by mouth daily at bedtime. For cholesterol. I have interviewed and examined the patient. I have reviewed the medical record and/or the pre-anesthesia evaluation, pertinent labs, and test results. This contains updated information obtained within 48 hours of Surgery/Procedure. SIGNATURE: Anette Murphy APRN.CRNA PATIENT NAME: Nancy Enamorado DATE: June 12, 2023 TIME: 12:14 PM CSN: [id number] [facility] BRIEF OP NOTon 06-12-2023 BRIEF OP NOT HNO ID: [id number] Author: Luci Ball MD Service: General Surgery Author Type: Physician Type: Brief Op Note Filed: 06/12/2023 1:15 PM Note Text: BRIEF OPERATIVE NOTE SURGERY DATE: 06/12/2023 Incision/Procedure Start Time: 12:02 Incision Close/Procedure End Time: 13:14 Surgeon(s)/Proceduralist(s) and Farm Service Adviser(s): issac Procedures: Excision of posterior right shoulder lipoma Anesthesia: MAC Findings: subfascial lipoma of posterior right shoulder - 3.7 cm in maximum dimension. Interdigitation in the subcutaneous fibrous tissue Estimated Blood Loss: < 3 ml Specimens: lipoma Complications: None Closure Technique: Primary Preop Diagnosis: localized mass Postop Diagnosis: subfascial lipoma of posterior right shoulder SIGNATURE: Luci Ball MD PATIENT NAME: Nancy Enamorado DATE: June 12, 2023 TIME: 1:05 PM Acct: [id number] [facility] NURSING PROGon 06-12-2023 NURSING PROG HNO ID: [id number] Author: Mariangel Cruz RN Service: Nursing Author Type: Registered Nurse Type: Nursing Progress Note Filed: 06/12/2023 10:34 AM Note Text: Pt ready for procedure. Denies questions or concerns at this time. Call light within reach. Side rails up x 2. Normal [facility] SURGICAL PATHOLOGYon 023 CASE REPORT Normal [facility] Comment on above: Order Comment: Speci men Type: TISSUE SPECIMEN Ordering Facility: [facility] Address: [address] [place] [address] Result Comment: Surg ical Pathology Report Case: [id number] Authorizing Provider: Luci Ball MD Collected: 06/12/2023 01:00 PM Ordering Location: [facility] SURGERY Received: 06/13/2023 08:24 AM Pathologist: Bridger Dozier MD Specimen: LIPOMA, Right shoulder lipoma Performed By: #### S #### [facility] CLIA [id number] [address] [place] [address] CLINICAL HISTORY Normal [facility] Comment on above: Order Comment: Josefi clyde Type: TISSUE SPECIMEN Ordering Facility: [facility] Address: [address] [place] [address] Result Comment: Pre- op diagnosis: Lipoma of other specified sites [D17.79] Performed By: #### S #### [facility] CLIA [id number] [address] [place] [address] FINAL DIAGNOSIS [facility] Comment on above: Order Comment: Speci men Type: TISSUE SPECIMEN Ordering Facility: [facility] Address: [address] [place] [address] Result Comment: A. S oft tissue mass of right shoulder, excision: - Mature adipose tissues consistent with lipoma. Performed By: #### S #### [facility] CLIA [id number] [address] [place] [address] [address] LAB Normal [facility] Comment on above: Order Comment: Josefi men Type: TISSUE SPECIMEN Ordering Facility: [facility] Address: [address] [place] [address] Result Comment: Diag nostic interpretation performed at [facility], [address] [place] [address] CLIA# [id number] Sanitizer: Bridger Dozier M.D. Performed By: #### S #### [facility] CLIA [id number] [address] [place] [address] GROSS DESCRIPTION A. LIPOMA Normal [facility] Comment on above: Order Comment: Speci men Type: TISSUE SPECIMEN Ordering Facility: [facility] Address: [address] [place] [address] Result Comment: Rece ived in formalin labeled as right shoulder lipoma are multiple mar, irregularly-shaped, partially encapsulated soft tissue fragments aggregating to 5.5 x 3.2 x 1.6 cm. The cut surfaces are homogeneous and glistening. Footwear Machinery Instructor sections are submitted in 2 cassettes. Gross examination performed at [facility], [address] [place] [address] CLIA# [id number] RSA June 13, 2023 10:44 AM Performed By: #### S #### [facility] CLIA [id number] [address] HISTORY PHYSICALon HISTORY PHYSICAL HNO ID: [id number] Author: Luci Ball MD Service: General Surgery Author Type: Physician Type: HANDP Filed: 06/11/2023 3:51 PM Note Text: HISTORY AND PHYSICAL Nancy Enamorado 1970 REFERRING PHYSICIAN: Chayo Hickey,* CHIEF COMPLAINT: lipoma HPI: The patient is a 52 year old male who presents for lump on right upper back/posterior shoulder area. Patient first noticed this lesion approximately 1.5 years ago, some enlargement since that time. Patient was evaluated by PCP and had ultrasound completed, which showed a 6.3 cm lesion consistent in appearance with a lipoma. Patient is referred for surgical excision. PCP note had also mentioned rectal bleeding. Discussed with patient who states this has completely resolved. He is not interested in pursuing colonoscopy at this time. Patient denies problems with sedation in the past. SIGNIFICANT MEDICAL PROBLEMS: PAST MEDICAL HISTORY PAST MEDICAL HISTORY Diagnosis Date Achilles tendinosis of left lower extremity s/p repair BPH (benign prostatic hyperplasia) Diabetes mellitus type II (HCC) Erectile dysfunction Heel spur, left Hypertension Hypertriglyceridemia Hypogonadism in male Idiopathic neuropathy JOSÉ MIGUEL (obstructive sleep apnea) 08/2020 RLS (restless legs syndrome) Dr Man Thrombosed hemorrhoids 11/2021 Vitamin D deficiency OPERATIONS: PAST SURGICAL HISTORY PAST SURGICAL HISTORY Procedure Laterality Date APPENDECTOMY ARTHROSCOPY KNEE DIAGNOSTIC W/WO SYNOVIAL BX SPX Left Arthroscopy, knee CHOLECYSTECTOMY HX HERNIA REPAIR HX Bilateral inguinal hernia, congenital NEUROPLASTY AND/TRANSPOS MEDIAN NRV CARPAL TUNNE Carpal tunnel decomp bilateral PAST SURGICAL HISTORY OF 07/30/2019 repair bone spur achilles left foot PAST SURGICAL HISTORY OF Left 08/21/2021 achilles tendon repair PAST SURGICAL HISTORY OF 12/05/2021 hemorrhoidectomy SKIN BIOPSY HX TONSILLECTOMY HX TONSILLECTOMY PRIMARY/SECONDARY Tonsillectomy CURRENT MEDICATIONS: CURRENT MEDICATIONS Current Outpatient Medications Medication Sig Dispense Refill atorvastatin (LIPITOR) 20 mg tablet Take 1 tablet by mouth daily at bedtime. For cholesterol. 90 tablet 1 blood sugar diagnostic (BLOOD GLUCOSE TEST) test strip Test blood sugar(s) 1-2 times daily. Dx: Type 2 DM - Uncontrolled E11.65 Insulin: No 50 Strip 11 CPAP/BIPAP/OTHER Continue Auto CPAP with current settings of 8-15 cm H2O. Lifetime supplies for Auto CPAP, including patient preferred mask, head gear, heated tubing, humidity, filters, chin strap. Dx: Obstructive Sleep Apnea G47.33 DME: [employer] 1 Each 0 CPAP Provide lifetime supplies for AutoPAP 8-15 cm H20 including nasal pillow mask, heated tubing, humidity, filters and fax download report to assess residual AHI to [phone]. Dx: G47.33 flash glucose sensor (FREESTYLE KRYSTA 14 DAY SENSOR) kit Check blood sugar twice daily 4 Each 1 Lancets lancets Test blood sugar(s) 1-2 times daily. Dx: Type 2 DM - Uncontrolled E11.65 Insulin: No 100 Each 11 lisinopril-hydroCHLOROthiaz kevin (ZESTORETIC) 20-12.5 mg per tablet Take 2 tablets by mouth once daily. 180 tablet 1 methadone (DOLOPHINE) 5 mg tablet Take 1.5 tablets by mouth every evening for 30 days. 45 tablet 0 semaglutide (OZEMPIC) 0.25 mg or 0.5 mg (2 mg/3 mL) pen Inject 0.25 mg subcutaneously one time a week. 1 Each 1 sertraline (ZOLOFT) 50 mg tablet Take 1 tablet by mouth once daily. 90 tablet 1 Syringe with Needle, Disp, 3 mL 25 x 1 1/2 1 Each every 2 weeks. (Patient not taking: Reported on 03/04/2023) 6 Each 1 Tadalafil (CIALIS) 5 mg tablet Take 1 tablet by mouth once daily. 90 tablet 1 testosterone cypionate (DEPO-TESTOSTERONE) 200 mg/mL injection Inject 1 mL intramuscularly every 2 weeks for 90 days. 6 mL 0 No current facility-administered medications for this visit. ALLERGIES: Metformin PERSONAL HISTORY: SOCIAL HISTORY Social History Tobacco Use Smoking status: Never Smokeless tobacco: Never Vaping Use Vaping Use: Never used Substance Use Topics Alcohol use: Yes Alcohol/week: 2.0 standard drinks of alcohol Types: 2 Cans of beer per week Drug use: Never FAMILY HISTORY: FAMILY HISTORY FAMILY HISTORY Problem Relation Age of Onset COPD Mother Cancer Mother lung Heart disease Father Cancer Father lung, liver, kidney, colon Depression Father Anxiety disorder Father other (cancer) Father Psychiatry Brother No Known Problems Brother Heart disease Maternal Grandmother Heart disease Maternal Grandfather Heart disease Paternal Grandmother Heart disease Paternal Grandfather Multiple Sclerosis Daughter other (apraxia) Son REVIEW OF SYMPTOMS: The review of systems data was entered by the nurse and reviewed by hi Nursing Notes: Kesha Alfaro RN 03/31/2023 8:47 AM Signed REVIEW OF SYSTEMS: General: The patient denies fatigue, denies weight loss, (more content not included)... Normal [facility] NURSING PROGon 05-30-2023 NURSING PROG HNO ID: [id number] Author: Marsha Gillespie RN Service: Nursing Author Type: Registered Nurse Type: Nursing Progress Note Filed: 05/30/2023 11:32 AM Note Text: Pre-Procedure Checklist Nancy Ronald Enamorado [phone] (home) 1970 52 year old Body mass index is 34.45 kg/m?. Allergies: Metformin Intolerance Comment:Muscle aches, increase stool Procedure: Excision lipoma back Date of Procedure: 06/12/23 Smoke: No Alcohol: No Street Drugs: No Diabetic: Yes Insulin: No Problems with Anesthesia (Self or Family?) No Mechanical Design Engineer: none Saw reproductive endocrinologist in the last 6 months? No Recent EKG/Cardiac Testing: No Chest pain in the last 6 months (<6 months cardiac clearance needed): No History of: Heart Attack/Stroke/Blood Clot?: none Shortness of Breath: No Asthma: No Inhalers: No Any Outstanding Consults?: No If yes, list: Additional Notes: Recovery Room Rn: Justyna () Normal [facility] Bedside Glucoseon 08-20-2022 FINGERSTICK GLU 139 mg/dL High 74-106 [facility] Comment on above: Result Comment: ZACHARY MOTT OF PATIENT CARE PER NURSING PROTOCOL Performed By: #### L 501.080 #### [facility] [address] [facility] [place], [address] Emergency Department Summary on 08-20-2022 Emergency Department Summary [facility] Medical Records Department [address] [place] [address] Emergency Department Summary 08/20/22 MR#: [id number] Acct: [id number] Name: NANCY ENAMORADO Rep #: [id number] : 1970 51 From: Luis Herr MD PCP: Dr. Sagar Hickey MD Status:PRE ER Location: ED HPI History of Present Illness Chief Complaint: Neuro S/Sx Informant: patient and spouse/S.O. Onset/Context/Timing Onset: Days (2) Context: Gradual Onset Timing: Continuous Narrative Narrative: Patient with couple days of left-sided facial weakness, he had some tingling inside of his mouth on the left side of his tongue initially. Now he is dribbling fluids out of his mouth, and he is having trouble closing his left eye. No history of stroke. On medication for blood pressure which she is compliant with. No trouble talking or speaking and he feels normal otherwise, except for some mild discomfort behind his left ear. [facility] Medical History High cholesterol Hypertension Home Medications atorvastatin 20 mg tablet 20 mg PO QHS 05/06/20 [History Last Taken Unknown] lisinopril 20 mg-hydrochlorothiazide 12.5 mg tablet 1 ea PO DAILY 05/06/20 [History Last Taken Unknown] naproxen 500 mg tablet 500 mg PO BID PRN #20 tabs 05/06/20 [Rx Last Taken Unknown] tadalafil 5 mg tablet 5 mg PO DAILY 05/06/20 [History Last Taken Unknown] testosterone cypionate 100 mg/mL intramuscular oil 2 mg IM SA 05/06/20 [History Last Taken Unknown] buprenorphine 2 mg-naloxone 0.5 mg sublingual film 0.33 film sublingual DAILY 02/14/21 [History Last Taken Unknown] meclizine 25 mg tablet 25 mg PO TID PRN dizziness #10 tabs 02/14/21 [Rx Last Taken Unknown] ondansetron 4 mg disintegrating tablet 4 mg PO Q8H PRN nausea and vomiting #10 tabs 02/14/21 [Rx Last Taken Unknown] prednisone 20 mg tablet 60 mg PO DAILY #21 TABLETS 08/20/22 [Rx Last Taken Unknown] valacyclovir 1 gram tablet 1,000 mg PO TID #21 tabs 08/20/22 [Rx Last Taken Unknown] Allergy/AdvReac Type Severity Reaction Status Date / Time No Known Allergies Allergy Verified 08/20/22 07:58 Family History no significant family his Social History Smoking Status: Never smoker ROS ROS ED Constitutional Constitutional ED: Denies chills or fever(s) Eyes Eyes: Denies change in vision or diplopia ENT ENT ED: Denies rhinorrhea or sore throat Cardiovascular Cardiovascular: Denies chest pain or palpitations Respiratory/Chest Respiratory/Chest: Denies cough or dyspnea Gastrointestinal Gastrointestinal: Denies abdominal pain, diarrhea, nausea or vomiting Genitourinary Genitourinary ED: Denies dysuria or hematuria Musculoskeletal Musculoskeletal: Denies back pain or neck pain Integumentary Denies abscess or rash Neurologic Neurologic: Reports paresthesias and weakness; Denies headache(s) Psychiatric Psychiatric: Denies anxiety or suicidal thoughts EXAM Physical Exam Const Vital Signs: 08/20/22 07:57 08/20/22 08:03 Temperature 97.6 F L Temperature Source Temporal Pulse Rate 76 76 Respiratory Rate 14 18 Blood Pressure 132/88 H 156/93 H Blood Pressure Mean 102 114 Pulse Ox 96 97 Oxygen Delivery Method Room Air Room Air Positive well nourished and well developed General Appearance ED: well developed and NAD HEENT Reports moist mucous membranes HEENT Narrative: Mild left ptosis. Eyes appear normal. Able to stick tongue out straight. Paralysis of the musculature of the left side of the face including the forehead. No rash. TMs normal bilaterally and EACs normal without lesions. Mastoid process on the left is normal-appearing nontender without erythema or signs of infection. normocephalic and atraumatic Eyes PERRL and EOMs intact bilaterally Neck full ROM and supple Resp normal respiratory effort Back/Spine General Back: other FROM Extremity normal to inspection General Extremety ED: Negative for edema, pulses abnormal or tenderness General Extremity: Negative for edema or pulses abnormal Neuro oriented x3 and no sensory deficits noted Neuro Narrative: PeripheralSpeech normal. Left peripheral 7th cranial nerve palsy other cranial nerves normal. Peripheral neurologic exam normal. Sensorium / Orientation: awake and alert Motor Exam: strength 5/5 throughout Psych mental status grossly normal Skin no rashes or lesions noted and no wounds MDM MDM MDM Narrative Medical decision making narrative: Classic exam for Oswald's palsy. He has paralysis of the forehead muscles on the left where the other muscles are weak as well. There is a cut off of the midline and the right side is normal. Re assured and prescribed valacyclovir and prednisone, he recently start (more content not included)... Normal [facility] CBC W Auto Differential pane l (Bld)on 07-30-2022 Basophils (Bld) [#/Vol] 0.03 10*3/uL <0.11 k/uL [facility] Basophils/100 WBC (Bld) 0.5 % [facility] Differential cell count method Nom (Bld) Auto [facility] Eosinophils (Bld) [#/Vol] 0.15 10*3/uL <0.46 k/uL [facility] Eosinophils/100 WBC (Bld) 2.3 % [facility] Erythrocyte distribution width (RBC) [Ratio] 12.1 % 11.5 - 15.0 % [facility] Hematocrit (Bld) [Volume fraction] 44.3 % 39.0 - 51.0 % [facility] Hemoglobin (Bld) [Mass/Vol] 15.4 g/dL 13.0 - 17.0 g/dL [facility] Immature granulocytes (Bld) [#/Vol] <0.10 k/uL [facility] Immature granulocytes/100 WBC (Bld) 0.3 % [facility] Lymphocytes (Bld) [#/Vol] 2.25 10*3/uL 1.00 - 4.00 k/uL [facility] Lymphocytes/100 WBC (Bld) 35.0 % [facility] MCH (RBC) [Entitic mass] 31.3 pg 26.0 - 34.0 pg [facility] MCHC (RBC) [Mass/Vol] 34.8 g/dL 30.5 - 36.0 g/dL [facility] MCV (RBC) [Entitic vol] 90.0 fL 80.0 - 100.0 fL [facility] Monocytes (Bld) [#/Vol] 0.42 10*3/uL <0.87 k/uL [facility] Monocytes/100 WBC (Bld) 6.5 % [facility] Neutrophils (Bld) [#/Vol] 3.56 10*3/uL 1.45 - 7.50 k/uL [facility] Neutrophils/100 WBC (Bld) 55.4 % [facility] Nucleated RBC (Bld) [#/Vol] <0.01 k/uL [facility] Nucleated RBC/100 WBC (Bld) [Ratio] 0.0 /100 WBC [facility] Platelet mean volume (Bld) [Entitic vol] 9.4 fL 9.0 - 12.7 fL [facility] Platelets (Bld) [#/Vol] 241 10*3/uL 150 - 400 k/uL [facility] RBC (Bld) [#/Vol] 4.92 10*6/uL 4.20 - 6.0 0 m/uL [facility] WBC (Bld) [#/Vol] 6.43 10*3/uL 3.70 - 11.00 k/uL [facility] Comprehensive metabolic 2000 panelon 07-30-2022 Albumin [Mass/Vol] 4.3 g/dL 3.9 - 4.9 g/dL [facility] ALP [Catalytic activity/Vol] 90 U/L 38 - 113 U/L [facility] ALT [Catalytic activity/Vol] 31 U/L 10 - 54 U/L [facility] Anion gap [Moles/Vol] 8 mmol/L Low 9 - 18 mmol/L [facility] AST [Catalytic activity/Vol] 21 U/L 14 - 40 U/L [facility] Bilirubin [Mass/Vol] 0.5 mg/dL 0.2 - 1 .3 mg/dL [facility] Calcium [Mass/Vol] 9.3 mg/dL 8.5 - 10. 2 mg/dL [facility] Chloride [Moles/Vol] 104 mmol/L 97 - 10 5 mmol/L [facility] CO2 [Moles/Vol] 26 mmol/L 22 - 30 mmol/L [facility] Creatinine [Mass/Vol] 0.98 mg/dL 0.73 - 1.22 mg/dL [facility] Estimated Glomerular Filtration Rate 93 mL/min/1.73m >=60 mL/min/1.73 m [facility] Glucose [Mass/Vol] 129 mg/dL High 74 - 99 mg/dL [facility] Potassium [Moles/Vol] 4.3 mmol/L 3.7 - 5.1 mmol/L [facility] Protein [Mass/Vol] 7.0 g/dL 6.3 - 8.0 g/dL [facility] Sodium [Moles/Vol] 138 mmol/L 136 - 144 mmol/L [facility] Urea nitrogen [Mass/Vol] 14 mg/dL 9 - 24 mg/dL [facility] PSA/PROSTSPECAG SCRNon 07-30 Prostate specific Ag [Mass/Vol] 1.49 ng/mL <2.60 ng/mL [facility] TSH BLDon 07-30-2022 TSH Qn 1.560 m[IU]/L 0.270 - 4.200 mIU/L [facility] TESTOSTERONE, FREE AND TOTAL on 03-11-2022 Testosterone [Mass/Vol] 194 ng/dL Low 240 - 950 ng/dL [facility] Testosterone Free [Mass/Vol] 6.6 ng/dL 4.06 - 15.6 ng/dL [facility] CBC W Auto Differential pane l (Bld)on 03-02-2022 Abs Immature Gran 0.04 k/uL <0.10 k/uL [facility] Basophils (Bld) [#/Vol] 0.04 10*3/uL <0.11 k/uL [facility] Basophils/100 WBC (Bld) 0.4 % [facility] Differential cell count method Nom (Bld) Auto [facility] Eosinophils (Bld) [#/Vol] 0.15 10*3/uL <0.46 k/uL [facility] Eosinophils/100 WBC (Bld) 1.6 % [facility] Erythrocyte distribution width (RBC) [Ratio] 12.5 % 11.5 - 15.0 % [facility] Hematocrit (Bld) [Volume fraction] 54.7 % High 39.0 - 51.0 % [facility] Hemoglobin (Bld) [Mass/Vol] 18.8 g/dL High 13.0 - 17.0 g/dL [facility] Immature Gran % 0.4 % [facility] Lymphocytes (Bld) [#/Vol] 2.82 10*3/uL 1.00 - 4.00 k/uL [facility] Lymphocytes/100 WBC (Bld) 29.8 % [facility] MCH (RBC) [Entitic mass] 30.6 pg 26.0 - 34.0 pg [facility] MCHC (RBC) [Mass/Vol] 34.4 g/dL 30.5 - 36.0 g/dL [facility] MCV (RBC) [Entitic vol] 89.1 fL 80.0 - 100.0 fL [facility] Monocytes (Bld) [#/Vol] 0.71 10*3/uL <0.87 k/uL [facility] Monocytes/100 WBC (Bld) 7.5 % [facility] Neutrophils (Bld) [#/Vol] 5.71 10*3/uL 1.45 - 7.50 k/uL [facility] Neutrophils/100 WBC (Bld) 60.3 % [facility] Nucleated RBC (Bld) [#/Vol] <0.01 k/uL [facility] Nucleated RBC/100 WBC (Bld) [Ratio] 0.0 /100 WBC [facility] Platelet mean volume (Bld) [Entitic vol] 9.6 fL 9.0 - 12.7 fL [facility] Platelets (Bld) [#/Vol] 281 10*3/uL 150 - 400 k/uL [facility] RBC (Bld) [#/Vol] 6.14 10*6/uL High 4.20 - 6.0 0 m/uL [facility] WBC (Bld) [#/Vol] 9.47 10*3/uL 3.70 - 11.00 k/uL [facility] UA DIP, URINE (POC)on 2021 BILIRUBIN UA (POCT) Negative Negative [facility] CLARITY UA (POCT) Clear [facility] COLOR UA (POCT) Yellow [facility] GLUCOSE UA (POCT) Negative Negative mg/dL [facility] HEMOGLOBIN/BLOOD UA (POCT) Negative Negative [facility] KETONE UA (POCT) Negative Negative mg/dL [facility] LEUKOCYTES UA (POCT) Negative Negative [facility] NITRITE UA (POCT) Negative Negative [facility] PH UA (POCT) 5.5 4.5 - 8.0 [facility] Protein Ql (U) Negative Negative mg/dL [facility] SPECIFIC GRAVITY UA (POCT) 1.025 1.005 - 1.030 [facility] UROBILINOGEN UA (POCT) 0.2 E.U./dL Ijeoma l E.U./dL [facility] TESTOSTERONE, FREE AND TOTAL on 09-06-2021 Testosterone [Mass/Vol] 147 ng/dL Low 240 - 950 ng/dL [facility] Testosterone Free [Mass/Vol] 6.47 ng/dL 4.06 - 15.6 ng/dL [facility] CREATININE BLDon 08-28-2021 Creatinine [Mass/Vol] 1.02 mg/dL Normal 0.73-1.22 [facility] Comment on above: Order Comment: Speci men Type: BLOOD SPECIMEN Ordering Facility: [facility] Address: [address] [place] [phone] Performed By: #### C RET1 #### [facility] CLIA [id number] [place] [address] [place] ESTIMATED GLOMERULAR FILTRATION RATE 89 mL/min/1.73m??? Normal >=60 [facility] Comment on above: Order Comment: Speci men Type: BLOOD SPECIMEN Ordering Facility: [facility] Address: [address] [place] [phone] Result Comment: Sandy mated Glomerular Filtration Rate (eGFR) is calculated using the 2020 CKD-EPI creatinine equation. This equation utilizes serum creatinine, sex, and age as parameters. The creatinine assay has traceable calibration to isotope dilution-mass spectrometry. Refer to KDIGO guidelines for clinical interpretation. In patients with unstable renal function, e.g. those with acute kidney injury, the eGFR may not accurately reflect actual GFR. Performed By: #### C RET1 #### [facility] CLIA [id number] [facility] [place] [address] [place] TESTOSTERONE, FREE AND TOTAL on 08-28-2021 TESTOSTERONE, FREE, S 6.47 ng/dL Normal 4.06-15.6 [facility] Comment on above: Order Comment: Speci men Type: BLOOD SPECIMEN Ordering Facility: [facility] Address: [address] [place], [place] [id number] Result Comment: ADDITIONAL INFORMATION Testing performed by [facility]. This test was developed and its performance characteristics determined by [facility] in a manner consistent with CLIA requirements. This test has not been cleared or approved by the U.S. Food and Drug Administration. Performed By: #### F TESTO #### [facility] CLIA [id number] [address] [place] [address] TESTOSTERONE, TOTAL, S 147 ng/dL Low 240-950 [facility] Comment on above: [facility] Type: BLOOD SPECIMEN Ordering Facility: [facility] Address: [address] [place], [place] [phone] Result Comment: ADDITIONAL INFORMATION Testing performed by Liquid Chromatography-Tandem Mass Spectrometry (LC-MS/MS). This test was developed and its performance characteristics determined by [facility] in a manner consistent with CLIA requirements. This test has not been cleared or approved by the U.S. Food and Drug Administration. Test Performed by: [facility] [address] [place] [address] Medical Detail Representative: Surya Lubin M.D. Ph.D.; CLIA# [id number] Performed By: #### F TESTO #### [facility] CLIA [id number] [address] [place] [address] ANES POSTPROC EVALon 022 ANES POSTPROC EVAL HNO ID: [id number] Author: Sunil Vera MD Service: Anesthesiology Author Type: Anesthesiologist Type: Anesthesia Postprocedure Evaluation Filed: 08/21/2021 12:14 PM Note Text: POST ANESTHESIA EVALUATION NOTE : 1970 Procedure Summary Date: 08/21/21 Room / Location: [address] / [facility] Anesthesia Start: 729 Anesthesia Stop: 951 Procedures: REPAIR ACHILLES TENDON SECONDARY (Left Ankle) OSTECTOMY CALCANEUS SPUR W/ OR W/O PLANTAR FASCIAL RELEASE (Left Ankle) TRANSFER TENDON EXTREMITY LOWER (Left Ankle) Diagnosis: Achilles tendinosis of left lower extremity Rg's deformity of left heel Calcaneal spur of left foot (Achilles tendinosis of left lower extremity [M67.88]) (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]) (Calcaneal spur of left foot [M77.32]) Surgeons: Carlton Horn MD Responsible Provider: Sunil Vera MD Anesthesia Type: general ASA Status: 2 Anesthesia Type: general Airway Type: ETT Last Vitals Vitals Value Taken Time BP 148/86 08/21/21 1115 Temp 36.4 ?C (97.5 ?F) 08/21/21 0953 Pulse 80 08/21/21 1117 Resp 16 08/21/21 1045 SpO2 93 % 08/21/21 1118 Vitals shown include unvalidated device data. Post Anesthesia Patient Status Patient Evaluation: PACU. PACU/ICU Patient Condition: stable. Anticipated Disposition: phase 2 then home. Neurological Status: aware and responsive. Pulmonary Status: breathing comfortably on room air Airway Control: returned to baseline unsupported. Cardiovascular Status: stable. Pain Management: clinically adequate Postoperative Hydration: acceptable. Intraoperative Events: no significant anesthesia events Recommendation: continue current plan of care and further care per PACU/ICU/floor team. Anesthesia Observations No Documentation SIGNATURE: Sunil Vera MD PATIENT NAME: Nancy Enamorado DATE: August 21, 2021 TIME: 12:14 PM CSN: [id number] [facility] ANES PRE-OPon 08-21-2021 [facility] PRE-OP HNO ID: [id number] Author: Sunil Vera MD Service: Anesthesiology Author Type: Anesthesiologist Type: Anesthesia Preprocedure Evaluation Filed: 08/21/2021 6:59 AM Note Text: ANESTHESIOLOGY DAY OF SURGERY NOTE : 1970 Procedure Information Date/Time: 08/21/21729 Procedures: REPAIR ACHILLES TENDON SECONDARY (Left Ankle) OSTECTOMY CALCANEUS SPUR W/ OR W/O PLANTAR FASCIAL RELEASE (Left Ankle) TRANSFER TENDON EXTREMITY LOWER (Left Ankle) Location: [address] / [facility] Surgeons: Carlton Horn MD Estimated body mass index is 36.08 kg/m? as calculated from the following: Height as of 08/15/21: 182.9 cm (6'). Weight as of 08/15/21: 120.7 kg (266 lb). Most recent hematocrit and potassium results: Hematocrit 48.6 07/06/2021 Potassium 4.2 07/06/2021 Relevant Problems ANESTHESIA (+) JOSÉ MIGUEL on CPAP CARDIO (+) Hypertension PULMONARY (+) JOSÉ MIGUEL on CPAP Other (+) Obesity, Class II, BMI 35-39.9 I - PHYSICAL EVALUATION AIRWAY Patient intubated: No. Tracheostomy tube not present Mallampati: II. TM distance: >3 FB. Neck ROM: full ROM without neurological symptoms. Mouth opening: adequate. Short neck: no. Thick neck: yes DENTAL Dental findings: teeth intact. Additional exam findings: yes. CARDIOVASCULAR Normal cardiovascular observations. Rhythm: regular Rate: normal PULMONARY Normal pulmonary observations. Breath sounds clear to auscultation. II - ANESTHESIA PLAN ASA Score: 2 Anesthetic Plan: general Airway type: ETT NPO Status: adequate Monitoring plan: Standard ASA. Postoperative analgesic plan: multimodal analgesia, peripheral nerve catheter and peripheral nerve block. Informed Consent Anesthetic risks, benefits, alternatives, personnel and consent discussed: yes. Patient / Responsible Green Party agrees to proceed: yes Patient / Surrogate agrees to blood products: blood products not planned Significant changes in the patient condition since the History and Physical, not otherwise documented in primary service progress note: no. Potential Anesthesia issues that may suggest increased risk of complications or contraindication to planned procedure: none. Vitals Value Taken Time BP 105/57 08/21/21 0655 Pulse 71 08/21/21 0658 Resp 16 08/21/21 0615 Temp 36.8 ?C (98.2 ?F) 08/21/21 0615 SpO2 94 % 08/21/21 0658 Vitals shown include unvalidated device data. Facility-Administered Medications as of 08/21/2021 Medication Dose Route Frequency - [COMPLETED] acetaminophen 1,000 mg tab(s) (TYLENOL) 1,000 mg ORAL ONCE - [COMPLETED] promethazine 12.5 mg tab(s) (PHENERGAN) 12.5 mg ORAL NOW - lactated ringers iv infusion 30 mL/hr INTRAVENOUS CONTINUOUS - lidocaine 10 mg/mL (1 %) 1-2 mg injection (XYLOCAINE) 0.1-0.2 mL INTRADERMAL PRN - lactated ringers iv infusion 5-30 mL/hr INTRAVENOUS CONTINUOUS - ceFAZolin 3 g in D5W 100 mL (ANCEF) 3 g INTRAVENOUS Pre-Op Once - ropivacaine (PF) 1,500 mg in empty bag Total Volume 750 mL (NAROPIN) PERIPHERAL NERVE CATHETER CONTINUOUS Outpatient Medications as of 08/21/2021 Medication Sig - methadone 5 mg/5 mL solution Take 4 mL by mouth every evening for 30 days. For RLS-pain - lisinopril-hydroCHLOROthiaz kevin (PRINZIDE,ZESTORETIC) 20-12.5 mg per tablet Take 2 tablets by mouth once daily. - CPAP Increase autopap pressure to 8-15 cm of water with humidification. Mask (per patient preference) optional chin strap (if indicated) , filters, tubing, humidifier and lifetime supplies. - atorvastatin (LIPITOR) 20 mg tablet Take 1 tablet by mouth daily at bedtime. For cholesterol. - naproxen (NAPROSYN) 500 mg tablet Take 1 tablet by mouth twice daily with meals. - testosterone cypionate (DEPO-TESTOSTERONE) 200 mg/mL injection Inject 1.5 mL intramuscularly every 2 weeks for 90 days. - Tadalafil (CIALIS) 5 mg tablet Take 1 tablet by mouth once daily. - CPAP Provide lifetime supplies for AutoPAP 8-15 cm H20 including nasal pillow mask, heated tubing, humidity, filters and fax download report to assess residual AHI to [phone]. Dx: G47.33 - Syringe with Needle, Disp, 3 mL 25 x 1 1/2 1 Each every 2 weeks. I have interviewed and examined the patient. I have reviewed the medical record and/or the pre-anesthesia evaluation, pertinent labs, and test results. This contains updated information obtained within 48 hours of Surgery/Procedure. SIGNATURE: Sunil Vera MD PATIENT NAME: Nancy Enamorado DATE: August 21, 2021 TIME: 6:59 AM CSN: [id number] Normal [facility] NURSING PROGon 08-21-2021 NURSING PROG HNO ID: [id number] Author: Nisha Lerma RN Service: Nursing Author Type: Registered Nurse Type: Nursing Progress Note Filed: 08/21/2021 1:25 PM Note Text: Left popliteal catheter removed. Left popliteal catheter reinserted under US. Tolerated procedure well. Vss throughout [facility] NURSING PROG HNO ID: [id number] Author: Nisha Lerma RN Service: Nursing Author Type: Registered Nurse Type: Nursing Progress Note Filed: 08/21/2021 1:23 PM Note Text: Patient continues to complain of left heel pain of 5-8. Dr. Vera here to evaluate patient. To redo Left popliteal block [facility] OPERATIVE NOon 08-21-2021 OPERATIVE NO HNO ID: [id number] Author: Carlton Horn MD Service: Orthopaedic Surgery Author Type: Physician Type: Operative Report Filed: 08/21/2021 12:20 PM Note Text: OPERATIVE REPORT LOG ID: [id number] Surgery Date: 08/21/2021 Incision/Procedure Start Time: 8:03 AM Incision Close/Procedure End Time: 9:46 AM Procedure Performed: Procedure(s) (LRB): Revision Achilles tendon surgery REPAIR ACHILLES TENDON SECONDARY (Left) OSTECTOMY CALCANEUS SPUR W/ OR W/O PLANTAR FASCIAL RELEASE (Left) Excision of Rg's deformity TRANSFER TENDON EXTREMITY LOWER (Left), flexor houses longus tendon transfer Harvesting and tendon transfer plantaris tendon Surgeon monitored fluoroscopy Surgeon(s)/Proceduralist(s) and Farm Service Adviser(s): Surgeon(s) and Role: * Carlton Horn MD - Primary Physician Farm Service Adviser: Alice Whyte PA-C, was essential in patient positioning, surgical exposure, neurovascular protection, tendon debridement, bony resections, harvesting of FHL and plantaris tendons, tendon repair, tendon transfers, operating fluoroscopy, surgical closure, postoperative bandaging and splinting Anesthesia: General Estimated Blood Loss: 0 ml Drains: None Specimen: Achilles tendon debridement, bursa, Rg's deformity and posterior calcaneal exostosis Complications: None IMPLANTS: Implant Name Type Inv. Item Serial No. Line O Scribe Operator Lot No. LRB No. Used Action SCREW TENODESIS 7MM BIOCOMPOSITE 23MM INTERFERENCE STERILE ACL - [id number] Screw SCREW TENODESIS 7MM BIOCOMPOSITE 23MM INTERFERENCE STERILE ACL [employer] [id number] Left 1 Implanted ANCHOR BIOCOMPOSITE CORKSCREW FT 4.5MM SUTURE NEEDLE Screw [employer] [id number] Left 1 Implanted Pre-Operative Diagnosis: Achilles tendinosis of left lower extremity [M67.88] 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] Calcaneal spur of left foot [M77.32] Partial tearing of Achilles tendon at insertion POST-OP/POST-PROCEDURE DIAGNOSIS: Same as Preop Operative Procedure: In the preoperative holding area the appropriate limb and site(s) were marked. Sign in was performed with the operative team. Prophylactic IV antibiotics were administered. The patient was brought to the operating room, placed upon the operating table and given an anesthetic. Following successful levels of anesthesia, he was appropriately padded, positioned and secured to the table. The surgical leg was then prepped and draped in the usual sterile fashion. An Esmarch bandage was utilized to exsanguinate the limb and tourniquet raised on the thigh to 300 mmHg. Achilles tendon secondary repair, FHL tendon transfer, plantaris tendon harvesting and transfer Achilles tenosynovectomy and tenorrhaphy: Achilles tendon debridement of tendinosis. The patient's previous incision with a central tendon splitting approach and would not allow us exposure we needed therefore we did not use this particular incision. An incision was begun in the medial aspect of the Achilles tendon carried to the distal insertion site of the Achilles tendon and then continued at 90? inferior to the Achilles tendon insertion site on the calcaneus. We status far away from the patient's previous incision that we possibly could. Dissection was carried through skin and subcutaneous tissue through the peritenon and the flap was kept thick beneath the peritenon. Once we had full exposure to the Achilles tendon insertion site was palpated the large calcaneal posterior exostosis was palpated.. We therefore subperiosteally lifted the Achilles tendon off of the calcaneus. This was a cutaneous periosteal and peritenon exposure. Full-thickness there was marked tendinosis and this was debrided and then perforated with an 11 blade. Multiple 11 blade incisions were made in the tendon to aid in revascularization to complete the tenorrhaphy.. Once we had debrided the Achilles tendon we debrided the entire inflammatory bursa and completed the tenosynovectomy. We then removedd the posterior calcaneal osteophyte. We also removed the Rg's deformity. We then smoothed and rasped the entire posterior and superior aspect of the calcaneus. We obtained an x-ray were quite satisfied with the debridement. The wound was then thoroughly irrigated. We then gently entered through the posterior intermuscular septum and identified the flexor hallucis longus. We followed this distally beneath the sustentaculum. Once we had a good 3 cm of tendon identified it was incised and harvested appropriately. We then placed a 2-0 PDS in the tendon. We sized it at a 7 mm. I then made a 7.5 mm socket in the calcaneus that was just longer than the length of our tendinous portion of the tendon. The patient also had a plantaris tendon which was harvested with an open ended tendon stripper and left attached distally. The FHL tendon transfer was then placed in the socket and fixed with appropriate tension with the foot and ankle in plantar flexion equal to (more content not included)... Normal [facility] SURGICAL PATHOLOGYon CASE REPORT Normal [facility] Comment on above: Order Comment: Speci men Type: SPECIMEN FROM BONEOrdering Facility: [facility] Address: [address] [place] [id number] Result Comment: [facility] Pathology Report Case: [id number] Authorizing Provider: Carlton Horn MD Collected: 08/21/2021 08:21 AM Ordering Location: [facility] Received: 08/22/2021 07:03 AM Surgery Center Pathologist: Rajni Pop MD Specimen: BONE RESECTION Performed By: #### S ####[facility] LABCLIA [id number] [address] FINAL DIAGNOSIS Normal [facility] Comment on above: Order Comment: Speci men Type: SPECIMEN FROM BONEOrdering Facility: [facility] Address: [address] [place] [address] Result Comment: A. B one and soft tissue, site not otherwise specified, excision: - Degenerative joint disease. - Synovium, fibroadipose and fibrotendinous tissue with reactive and degenerative changes. KJF/FSA/kr 08/27/2021 Performed By: #### S ####[facility] LABCLIA [id number] [address] OF [facility] FINAL PERFORMING LAB Normal [facility] Comment on above: Order Comment: Speci men Type: SPECIMEN FROM BONEOrdering Facility: [facility] Address: [address] [place] [address] Result Comment: Diag nostic interpretation performed at [facility], [address] [place] [address] CLIA# [id number] Sanitizer: Chris Mckinley M.D. Performed By: #### S ####[facility] LABCLIA [id number] [address] OF [facility] GROSS DESCRIPTION Normal [facility] Comment on above: Order Comment: Speci men Type: SPECIMEN FROM BONEOrdering Facility: [facility] Address: [address] [place] [address] Result Comment: A. B ONE RESECTION. Received in formalin labeled as bone resection are multiple irregular segments of soft tissue and bone aggregating to 6.5 x 6.5 x 1.5 cm. Segments of mar-yellow adipose tissue and possible tendon are identified. Footwear Machinery Instructor sections are submitted as follows: A1 soft tissue in formalin, A2 customer response representative section of bone following decalcification. MLG August 22, 2021 11:38 AM Gross examination performed at [facility], [address] [place] [address] Performed By: #### S ####[facility] LABCLIA [id number] [facility] [id number] [address] [place] X[place] Cervical spine AP and Lat eral and obliqueon 05-08-2020 IMPRESSION: Degenera tive changes as detailed in report. Veneer Stapler: MIRELLA Transcribe Date/Time: May 08 2020 2:22P Dictated by : SHAISTA GREGORIO MD This examination was interpreted and the report reviewed and electronically signed by: SHAISTA GREGORIO MD on May 08 2020 2:27PM [facility] DIVISION OF RADIOLOGY * * *Final Report* * * DATE OF EXAM: May 08 2020 2:20PM WOX [id number] - XR CERVICAL 4V AP/LAT/OBL / PROCEDURE REASON: Cervical radiculopathy * * * * Physician Interpretation * * * * EXAMINATION: XR CERVICAL 4V AP/LAT/OBL HISTORY: LEFT lateral neck pain that radiates distal down left arm for a week. Cervical radiculopathy . TECHNIQUE: XR CERVICAL 4V AP/LAT/OBL Laterality: LEFT Number of different views (projections): 4 M: XB_1 COMPARISON: There are no prior relevant examinations available for comparison. RESULTS: 4 views of the cervical spine demonstrate multilevel degenerative change with vertebral body osteophytosis. There are no vertebral body compression deformities and alignment is well maintained. Bilateral obliques demonstrate mild foraminal narrowing at C6-7 and C7-T1 on the left and at C4-5 and C6-7 on the right. Moderate foraminal narrowing is noted at C3-4 and C6-7 on the left . Severe foraminal narrowing is noted at C3-4 on the right and C4-5 on the left.. The atlantoaxial interval and craniocervical junction are intact. There is no prevertebral soft tissue abnormality. DIVISION OF RADIOLOGY Provider, [facility] - 05/08/2020 * * *Final Report* * * DATE OF EXAM: May 08 2020 2:20PM WOX [id number] - XR CERVICAL 4V AP/LAT/OBL / PROCEDURE REASON: Cervical radiculopathy * * * * Physician Interpretation * * * * EXAMINATION: XR CERVICAL 4V AP/LAT/OBL HISTORY: LEFT lateral neck pain that radiates distal down left arm for a week. Cervical radiculopathy . TECHNIQUE: XR CERVICAL 4V AP/LAT/OBL Laterality: LEFT Number of different views (projections): 4 M: XB_1 COMPARISON: There are no prior relevant examinations available for comparison. RESULTS: 4 views of the cervical spine demonstrate multilevel degenerative change with vertebral body osteophytosis. There are no vertebral body compression deformities and alignment is well maintained. Bilateral obliques demonstrate mild foraminal narrowing at C6-7 and C7-T1 on the left and at C4-5 and C6-7 on the right. Moderate foraminal narrowing is noted at C3-4 and C6-7 on the left . Severe foraminal narrowing is noted at C3-4 on the right and C4-5 on the left.. The atlantoaxial interval and craniocervical junction are intact. There is no prevertebral soft tissue abnormality. IMPRESSION IMPRESSION: Degenerative changes as detailed in report. Veneer Stapler: MIRELLA Transcribe Date/Time: May 08 2020 2:22P Dictated by : SHAISTA GREGORIO MD This examination was interpreted and the report reviewed and electronically signed by: SHAISTA GREGORIO MD on May 08 2020 2:27PM EST [facility] Radiology Study observation (narrative) [facility] XR Cervical spine AP and Lat eral and obliqueOrdered By: [facility] Provider on 05-08-2020 [facility] TESTOSTERONEon 04-23-2019 Testosterone [Mass/Vol] 247 ng/dL Normal [facility] Comment on above: Result Comment: MALE REFERENCE RANGES: ADULTS (<=50 YRS.) 113-1065 ng/dL ADULTS (>50 YRS.) 95-948 ng/dL FEMALE REFERENCE RANGES: PRE-MENOPAUSAL 9-53 ng/dL POST-MENOPAUSAL <8-48 ng/dL Performed By: #### P SA, TEST #### [facility] [address] [place] [address] CBC with AUTO DIFFon 019 BAS0 % 0.50 % Normal 0-2 [facility] Comment on above: Performed By: #### C BC #### [facility] [address] [place] [address] Basophils (Bld) [#/Vol] 0.1 10*3/uL Normal 0-0.1 [facility] Comment on above: Performed By: #### C BC #### [facility] [address] [facility] [place] [address] Eosinophils (Bld) [#/Vol] 0.1 10*3/uL Normal 0.0-1.80 [facility] Comment on above: Performed By: #### C BC #### [facility] [address] [facility] [place] [address] Eosinophils/100 WBC (Bld) 0.9 % Normal 0-8 [facility] Comment on above: Performed By: #### C BC #### [facility] [address] [facility] [place] [address] GRAN # 6.8 K/uL Normal 2.2-9.1 [facility] Comment on above: Performed By: #### C BC #### [address] [place] [address] GRAN % 61.7 % Normal 42-80 [facility] Comment on above: Performed By: #### C BC #### [address] [place] [address] Hematocrit (Bld) [Volume fraction] 47.8 % Normal 41.0-53.0 [facility] Comment on above: Performed By: #### C BC #### [address] [place] [address] Hemoglobin (Bld) [Mass/Vol] 16.3 g/dL Normal 14.0-18.0 [facility] Comment on above: Performed By: #### C BC #### [address] [place] [address] Lymphocytes (Bld) [#/Vol] 3.3 10*3/uL Normal 1.0-4.0 [facility] Comment on above: Performed By: #### C BC #### [address] [place] [address] Lymphocytes/100 WBC (Bld) 29.8 % Normal 16-48 [facility] Comment on above: Performed By: #### C BC #### [facility] [address] [facility] [place] [address] MCH (RBC) [Entitic mass] 34.0 g/dL Normal 31.0-36.0 [facility] Comment on above: Performed By: #### C BC #### [address] [place] [address] MCV (RBC) [Entitic vol] 90.2 fL Normal 80-97 [facility] Comment on above: Performed By: #### C BC #### [facility] [address] [facility] [place] [address] MEAN CORPUSCULAR HGB 30.7 pg Normal 26.0-32.0 [facility] Comment on above: Performed By: #### C BC #### [facility] [address] [facility] [place] [address] Monocytes (Bld) [#/Vol] 0.8 10*3/uL Normal 0.1-1.7 [facility] Comment on above: Performed By: #### C BC #### [facility] [address] [facility] [place] [address] Monocytes/100 WBC (Bld) 7.1 % Normal 3-9 [facility] Comment on above: Performed By: #### C BC #### [facility] [address] [facility] [place] [address] Platelet mean volume (Bld) [Entitic vol] 7.8 fL Normal 6.4-10.5 [facility] Comment on above: Performed By: #### C BC #### [facility] [address] [facility] [place] [address] Platelets (Bld) [#/Vol] 264 10*3/uL Normal 140-450 [facility] Comment on above: Performed By: #### C BC #### [facility] [address] [facility] [place] [address] RBC (Bld) [#/Vol] 5.30 10*6/uL Normal 4.40-6.30 [facility] Comment on above: Performed By: #### C BC #### [facility] [address] [facility] [place] [address] RED CELL DISTRI WIDTH 12.9 % Normal 11.0-15.5 [facility] Comment on above: Performed By: #### C BC #### [facility] [address] [facility] [place] [address] WBC (Bld) [#/Vol] 11.0 10*3/uL Normal 4.0-11.0 [facility] Comment on above: Performed By: #### C BC #### [facility] [address] [facility] [place] [address] COMPREHENSIVE METABOLIC PANE Kevin 08-21-2018 Albumin [Mass/Vol] 4.2 g/dL Normal 3.0-5.0 [facility] Comment on above: Performed By: #### M N, TEST #### [facility] [address] [facility] [place] [address] Albumin/Globulin [Mass ratio] 1.2 {ratio} Normal 1.1-1.8 [facility] Comment on above: Performed By: #### M N, TEST #### [facility] [address] [facility] [place] [address] ALP [Catalytic activity/Vol] 81 U/L Normal 45-117 [facility] Comment on above: Performed By: #### M N, TEST #### [facility] [address] [facility] [place] [address] ALT [Catalytic activity/Vol] 27 U/L Normal 12-78 [facility] Comment on above: Performed By: #### M N, TEST #### [facility] [address] [facility] [place] [address] Anion gap [Moles/Vol] 11.0 mmol/L Normal 11-23 [facility] Comment on above: Performed By: #### M N, TEST #### [facility] [address] [facility] [place] [address] Bilirubin [Mass/Vol] 0.6 mg/dL Normal 0-1.0 [facility] Comment on above: Performed By: #### M N, TEST #### [facility] [address] [facility] [place] [address] Calcium [Mass/Vol] 8.3 mg/dL Low 8.5-10.1 [facility] Comment on above: Performed By: #### M N, TEST #### [facility] [address] [facility] [place] [address] Chloride [Moles/Vol] 106 mmol/L Normal 98-107 [facility] Comment on above: Performed By: #### M N, TEST #### [facility] [address] [facility] [place] [address] CO2 [Moles/Vol] 27.0 mmol/L Normal 21-32 [facility] Comment on above: Performed By: #### M N, TEST #### [facility] [address] [facility] [place] [address] Creatinine [Mass/Vol] 1.00 mg/dL Normal 0.4-1.2 [facility] Comment on above: Performed By: #### M N, TEST #### [address] [place] [address] GFR AM > 60.0 Normal [facility] Comment on above: Result Comment: THE NORMAL LEVEL OF GFR VARIES ACCORDING TO AGE, SEX, AND BODY SIZE. A GFR LEVEL OF LESS THAN 60 ML/MIN REPRESENTS LOSS OF THE ADULT LEVEL OF NORMAL KIDNEY FUNCTION. Performed By: #### M N, TEST #### [address] [place] [address] GFR/1.73 sq M.predicted MDRD (S/P/Bld) [Vol rate/Area] mL/min/{1.73_m2} Normal [facility] Comment on above: Performed By: #### M N, TEST #### [address] [place] [address] Globulin (S) [Mass/Vol] 3.5 g/dL Normal 2.5-4.6 [facility] Comment on above: Performed By: #### M N, TEST #### [address] [place] [address] Glucose [Mass/Vol] 85 mg/dL Normal 70-100 [facility] Comment on above: Performed By: #### M N, TEST #### [address] [place] [address] Potassium [Moles/Vol] 3.8 mmol/L Normal 3.6-5.2 [facility] Comment on above: Performed By: #### M N, TEST #### [address] [place] [address] Protein [Mass/Vol] 7.7 g/dL Normal 6.0-8.3 [facility] Comment on above: Performed By: #### M N, TEST #### [address] [place] [address] SGOT/AST 19 U/L Normal 9-34 [facility] Comment on above: Performed By: #### M N, TEST #### [address] [place] [address] Sodium [Moles/Vol] 140 mmol/L Normal 136-147 [facility] Comment on above: Performed By: #### M N, TEST #### [address] [place] [address] Urea nitrogen [Mass/Vol] 20.0 mg/dL High 7-18 [facility] Comment on above: Performed By: #### M N, TEST #### [address] [address] GLYCOHEMOGLOBIN (A1C)on Glucose [Mass/Vol] 114 mg/dL Normal [facility] Comment on above: Performed By: #### G LY #### [address] [address] HbA1c (Bld) [Mass fraction] 5.6 % Normal [facility] Comment on above: Result Comment: Inte rpretation of Hgb A1C results: <5.7% Normal 5.7% - 6.4% Prediabetes >6.4% Diabetes SAMPLES FROM PATIENTS WITH HEMOLYTIC ANEMIAS OR THE PRESENCE OF UNSTABLE HEMOGLOBINS LIKE HbSS OR HbSC WILL EXHIBIT DECREASED GLYCATED HGB DUE TO THE SHORTENED LIFE SPAN OF THE RED CELLS.RESULTS ARE NOT RELIABLE IN PATIENTS WITH CHRONIC BLOOD LOSS. Performed By: #### G LY #### [address] [address] TESTOSTERONEon 08-21-2018 Testosterone [Mass/Vol] 369 ng/dL Normal 286-1511 [facility] Comment on above: Result Comment: FEMA LE REFERENCE RANGES: PRE-MENOPAUSAL (9-53) POST-MENOPAUSAL (<8-48) Performed By: #### M N, TEST #### [address] [address] URINALYSIS W/ C S IF INDICAT EDon 08-21-2018 Appearance (U) Clear Normal CLEAR [facility] Comment on above: Performed By: #### U AC #### [address] [address] Color (U) Lt. Yellow Normal [facility] Comment on above: Performed By: #### U AC #### [address] [address] Hemoglobin Ql (U) Negative Normal NEGATIVE [facility] Comment on above: Performed By: #### U AC #### [address] [address] pH (U) 5.5 [pH] Normal 5.0-9.0 [facility] Comment on above: Performed By: #### U AC #### [facility] [place] [facility] [address] [place] [address] Protein (U) [Mass/Vol] Negative Normal NEGATIVE [facility] Comment on above: Performed By: #### U AC #### [facility] [address] [facility] [place] [address] URINE BILIRUBIN - DIPSTICK Negative Normal NEGATIVE [facility] Comment on above: Performed By: #### U AC #### [facility] [address] [facility] [place] [address] URINE GLUCOSE - DIPSTICK Negative Normal NEGATIVE [facility] Comment on above: Performed By: #### U AC #### [facility] [address] [facility] [place] [address] URINE KETONE Negative Normal NEGATIVE [facility] Comment on above: Performed By: #### U AC #### [facility] [address] [facility] [place] [address] URINE LEUK ESTERASE Negative Normal NEGATIVE [facility] Comment on above: Performed By: #### U AC #### [facility] [address] [facility] [place] [address] URINE NITRITE - DIPSTICK Negative Normal NEGATIVE [facility] Comment on above: Performed By: #### U AC #### [facility] [address] [facility] [id number] URINE SPEC GRAVITY, DIPSTICK >= 1.030 Normal 1.003-1.035 [facility] Comment on above: Performed By: #### U AC #### [facility] [address] [facility] [place] [address] URINE UROBILINOGEN - DIPSTICK 0.2 E.U./dL Normal <=1.0 [facility] Comment on above: Performed By: #### U AC #### [address] [place] [address] Vital Signs Date Time Vital Sign Value Performing Clinician Mateo gonzalez 03-02-2025 10:47-0400 Body height 182.9 cm Chayo Hickey MD Work Phone: [facility] 03-02-2025 10:47-0400 Body mass index (BMI) [Ratio] 34.12 kg/m2 Chayo Hickey MD Work Phone: [facility] 03-02-2025 10:47-0400 Body weight 114.13 kg Chayo Hickey MD Work Phone: [facility] 03-02-2025 10:47-0400 Diastolic blood pressure 69 mm[Hg] Chayo Hickey MD Work Phone: [facility] 03-02-2025 10:47-0400 Heart rate 79 /min Chayo Hickey MD Work Phone: [facility] 03-02-2025 10:47-0400 Systolic blood pressure 103 mm[Hg] Chayo Hickey MD Work Phone: [facility] 11-18-2024 16:48-0400 Body mass index (BMI) [Ratio] 34.12 kg/m2 Larry Lynch MD Work Phone: [facility] 11-18-2024 16:48-0400 Body temperature 97.81 [degF] Larry Lynch MD Work Phone: [facility] 11-18-2024 16:48-0400 Body weight 114.1 kg Larry Lynch MD Work Phone: [facility] 11-18-2024 16:48-0400 Diastolic blood pressure 79 mm[Hg] Larry Lynch MD Work Phone: [facility] 11-18-2024 16:48-0400 Heart rate 72 /min Larry Lynch MD Work Phone: [facility] 11-18-2024 16:48-0400 Respiratory rate 18 /min Larry Lynch MD Work Phone: [facility] 11-18-2024 16:48-0400 SaO2% (BldA) [Mass fraction] 97 % Larry Lynch MD Work Phone: [facility] 11-18-2024 16:48-0400 Systolic blood pressure 119 mm[Hg] Larry Lynch MD Work Phone: [facility] 11-01-2024 11:21-0400 Body mass index (BMI) [Ratio] 34.83 kg/m2 Michelle Riley MD Work Phone: [facility] 11-01-2024 11:21-0400 Body weight 116.5 kg Michelle Riley MD Work Phone: [facility] 10-30-2024 08:58-0400 Body height 182.9 cm Priti Dockery [employer] Work Phone: [facility] 10-30-2024 08:58-0400 Body mass index (BMI) [Ratio] 34.27 kg/m2 Priti Sarkis [employer] Work Phone: [facility] 10-30-2024 08:58-0400 Body temperature 97.11 [degF] Priti Sarkis [employer] Work Phone: [facility] 10-30-2024 08:58-0400 Body weight 114.6 kg Priti Dockery [employer] Work Phone: [facility] 10-30-2024 08:58-0400 Diastolic blood pressure 77 mm[Hg] Priti Sarkis [employer] Work Phone: [facility] 10-30-2024 08:58-0400 Heart rate 79 /min Priti Dockery [employer] Work Phone: [facility] 10-30-2024 08:58-0400 Respiratory rate 12 /min Priti Dockery [employer] Work Phone: [facility] 10-30-2024 08:58-0400 SaO2% (BldA) [Mass fraction] 95 % Priti Dockery [employer] Work Phone: [facility] 10-30-2024 08:58-0400 Systolic blood pressure 121 mm[Hg] Priti Dockery [employer] Work Phone: [facility] 09-17-2024 14:29-0400 Body mass index (BMI) [Ratio] 34.31 kg/m2 Frank Lal [employer] Work Phone: [facility] 09-17-2024 14:29-0400 Body weight 114.76 kg Frank Lal [employer] Work Phone: [facility] 09-17-2024 14:29-0400 Diastolic blood pressure 73 mm[Hg] Frank Lukasz [employer] Work Phone: [facility] 09-17-2024 14:29-0400 Heart rate 84 /min Frank Lukasz [employer] Work Phone: [facility] 09-17-2024 14:29-0400 Respiratory rate 18 /min Frank Lukasz [employer] Work Phone: [facility] 09-17-2024 14:29-0400 SaO2% (BldA) [Mass fraction] 96 % Frank Lkuasz [employer] Work Phone: [facility] 09-17-2024 14:29-0400 Systolic blood pressure 117 mm[Hg] Frank Lukasz [employer] Work Phone: [facility] 08-31-2024 13:57-0400 Body temperature 97 [degF] Raisa Lopezunaretha [employer] Work Phone: [facility] 08-31-2024 11:28-0400 Body mass index (BMI) [Ratio] 34.41 kg/m2 Genesis Podlogar [employer] Work Phone: [facility] 08-31-2024 11:28-0400 Body weight 115.1 kg Gneesis Podlogar [employer] Work Phone: [facility] 08-31-2024 11:28-0400 Diastolic blood pressure 78 mm[Hg] Genesis Podlogar [employer] Work Phone: [facility] 08-31-2024 11:28-0400 Heart rate 79 /min Genesis Podlogar [employer] Work Phone: [facility] 08-31-2024 11:28-0400 Respiratory rate 18 /min Genesis Podlogar [employer] Work Phone: [facility] 08-31-2024 11:28-0400 SaO2% (BldA) [Mass fraction] 96 % Genesis Podlogar [employer] Work Phone: [facility] 08-31-2024 11:28-0400 Systolic blood pressure 114 mm[Hg] Genesis Spencer APRN.STOGY ROLLER Work Phone: [facility] 06-22-2024 16:24-0500 Body mass index (BMI) [Ratio] 33.54 kg/m2 Nikko Mascorro APRN.STOGY ROLLER Work Phone: [facility] 06-22-2024 16:24-0500 Body temperature 97.2 [degF] Nikko Mascorro APRN.STOGY ROLLER Work Phone: [facility] 06-22-2024 16:24-0500 Body weight 112.2 kg Nikko Mascorro APRN.STOGY ROLLER Work Phone: [facility] 06-22-2024 16:24-0500 Diastolic blood pressure 76 mm[Hg] Nikko Mascorro APRN.STOGY ROLLER Work Phone: [facility] 06-22-2024 16:24-0500 Heart rate 88 /min Nikko Mascorro APRN.STOGY ROLLER Work Phone: [facility] 06-22-2024 16:24-0500 Respiratory rate 16 /min Nikko Mascorro APRN.STOGY ROLLER Work Phone: [facility] 06-22-2024 16:24-0500 SaO2% (BldA) [Mass fraction] 96 % Nikko Mascorro APRN.STOGY ROLLER Work Phone: [facility] 06-22-2024 16:24-0500 Systolic blood pressure 124 mm[Hg] Nikko Mascorro APRN.STOGY ROLLER Work Phone: [facility] 03-03-2024 13:18-0400 Body mass index (BMI) [Ratio] 33.24 kg/m2 Raisa Han APRN.STOGY ROLLER Work Phone: [facility] 03-03-2024 13:18-0400 Body temperature 97 [degF] Raisa Han APRN.STOGY ROLLER Work Phone: [facility] 03-03-2024 13:18-0400 Body weight 111.2 kg Raisa Ciuni [employer] Work Phone: [facility] 03-03-2024 13:18-0400 Diastolic blood pressure 68 mm[Hg] Raisa Ciuni [employer] Work Phone: [facility] 03-03-2024 13:18-0400 Heart rate 91 /min Raisa Ciuni [employer] Work Phone: [facility] 03-03-2024 13:18-0400 Respiratory rate 15 /min Raisa Ciuni [employer] Work Phone: [facility] 03-03-2024 13:18-0400 SaO2% (BldA) [Mass fraction] 95 % Raisa Ciuni [employer] Work Phone: [facility] 03-03-2024 13:18-0400 Systolic blood pressure 123 mm[Hg] Raisa Ciuni [employer] Work Phone: [facility] 03-02-2024 13:52-0400 Body mass index (BMI) [Ratio] 33.24 kg/m2 Genesis Podlogar [employer] Work Phone: [facility] 03-02-2024 13:52-0400 Body weight 111.2 kg Genesis Podlogar [employer] Work Phone: [facility] 03-02-2024 13:52-0400 Diastolic blood pressure 72 mm[Hg] Genesis Podlogar [employer] Work Phone: [facility] 03-02-2024 13:52-0400 Heart rate 91 /min Genesis Podlogar [employer] Work Phone: [facility] 03-02-2024 13:52-0400 Respiratory rate 18 /min Genesis Podlogar [employer]ER Work Phone: [facility] 03-02-2024 13:52-0400 SaO2% (BldA) [Mass fraction] 94 % Genesis Podlogar [employer] Work Phone: [facility] 03-02-2024 13:52-0400 Systolic blood pressure 118 mm[Hg] Genesis Spencer [employer] Work Phone: [facility] 03-02-2024 02:39-0400 Body height 182.9 cm [facility] Work Phone: [facility] 03-02-2024 02:39-0400 Body mass index (BMI) [Ratio] 33.06 kg/m2 [facility] Work Phone: [facility] 03-02-2024 02:39-0400 Body weight 110.6 kg [facility] Work Phone: [facility] 12-25-2023 10:05-0400 Body mass index (BMI) [Ratio] 33.07 kg/m2 Raisa Ciuni [employer] Work Phone: [facility] 12-25-2023 10:05-0400 Body temperature 98.6 [degF] Raisa Ciuni [employer] Work Phone: [facility] 12-25-2023 10:05-0400 Body weight 110.6 kg Raisa Ciuni [employer] Work Phone: [facility] 12-25-2023 10:05-0400 Diastolic blood pressure 74 mm[Hg] Raisa Ciuni [employer] Work Phone: [facility] 12-25-2023 10:05-0400 Heart rate 70 /min Raisa Ciuni [employer]ER Work Phone: [facility] 12-25-2023 10:05-0400 Respiratory rate 16 /min Raisa Ciuni [employer]ER Work Phone: [facility] 12-25-2023 10:05-0400 SaO2% (BldA) [Mass fraction] 98 % Raisa Ciuni [employer]ER Work Phone: [facility] 12-25-2023 10:05-0400 Systolic blood pressure 117 mm[Hg] Raisa Ciuni [employer]ER Work Phone: [facility] 12-05-2023 14:56-0400 Body mass index (BMI) [Ratio] 32.14 kg/m2 Jaden Man DO Work Phone: [facility] 12-05-2023 14:56-0400 Body weight 107.5 kg Jaden Man DO Work Phone: [facility] 12-05-2023 14:56-0400 Diastolic blood pressure 82 mm[Hg] Jaden Man DO Work Phone: [facility] 12-05-2023 14:56-0400 Heart rate 92 /min Jaden Man DO Work Phone: [facility] 12-05-2023 14:56-0400 SaO2% (BldA) [Mass fraction] 95 % Jaden Man DO Work Phone: [facility] 12-05-2023 14:56-0400 Systolic blood pressure 138 mm[Hg] Jaden Man DO Work Phone: [facility] 11-25-2023 08:10-0400 Body mass index (BMI) [Ratio] 33.12 kg/m2 Chayo Hickey MD Work Phone: [facility] 11-25-2023 08:10-0400 Body temperature 97.39 [degF] Chayo Hickey MD Work Phone: [facility] 11-25-2023 08:10-0400 Body weight 110.77 kg Chayo Hickey MD Work Phone: [facility] 11-25-2023 08:10-0400 Diastolic blood pressure 74 mm[Hg] Chayo Hickey MD Work Phone: [facility] 11-25-2023 08:10-0400 Heart rate 90 /min Chayo Hickey MD Work Phone: [facility] 11-25-2023 08:10-0400 Respiratory rate 16 /min Chayo Hickey MD Work Phone: [facility] 11-25-2023 08:10-0400 SaO2% (BldA) [Mass fraction] 97 % Chayo Hickey MD Work Phone: [facility] 11-25-2023 08:10-0400 Systolic blood pressure 116 mm[Hg] Chayo Hickey MD Work Phone: [facility] 08-29-2023 08:39-0400 Body weight 109.32 kg Frank Lukasz [employer] Work Phone: [facility] 08-29-2023 08:39-0400 Diastolic blood pressure 73 mm[Hg] Frank Lukasz [employer]ER Work Phone: [facility] 08-29-2023 08:39-0400 Heart rate 74 /min Frank Lukasz [employer]ER Work Phone: [facility] 08-29-2023 08:39-0400 Respiratory rate 16 /min Frank Lukasz [employer]ER Work Phone: [facility] 08-29-2023 08:39-0400 Systolic blood pressure 121 mm[Hg] Frank Lukasz [employer]ER Work Phone: [facility] 08-29-2023 07:38-0400 Body weight 109.59 kg Genesis Podlogar [employer] Work Phone: [facility] 08-29-2023 07:38-0400 Heart rate 79 /min Genesis Podlogar [employer] Work Phone: [facility] 08-29-2023 07:38-0400 Respiratory rate 18 /min Genesis Podlogar [employer]ER Work Phone: [facility] 08-29-2023 07:38-0400 SaO2% (BldA) [Mass fraction] 96 % Genesis Podlogar [employer] Work Phone: [facility] 05-27-2023 14:18-0500 Body height 182.9 cm Karli Correa [employer] Work Phone: [facility] 05-27-2023 14:18-0500 Body temperature 96.3 [degF] Karli Beuvront [employer]ER Work Phone: [facility] 05-27-2023 14:18-0500 Body weight 112.49 kg Karli Correa [employer] Work Phone: [facility] 05-27-2023 14:18-0500 Diastolic blood pressure 85 mm[Hg] Karli Correa [employer]ER Work Phone: [facility] 05-27-2023 14:18-0500 Heart rate 78 /min Karli Beuvront [employer]ER Work Phone: [facility] 05-27-2023 14:18-0500 Respiratory rate 20 /min Karli Correa [employer]ER Work Phone: [facility] 05-27-2023 14:18-0500 SaO2% (BldA) [Mass fraction] 98 % Karli Correa [employer]ER Work Phone: [facility] 05-27-2023 14:18-0500 Systolic blood pressure 134 mm[Hg] Karli Correa [employer]ER Work Phone: [facility] 05-11-2023 09:59-0500 Body temperature 97.3 [degF] Candace Aquino [employer] Work Phone: [facility] 05-11-2023 09:59-0500 Body weight 118.84 kg Candace Aquino [employer] Work Phone: [facility] 05-11-2023 09:59-0500 Diastolic blood pressure 87 mm[Hg] Candace Aquino [employer]ER Work Phone: [facility] 05-11-2023 09:59-0500 Heart rate 73 /min Candace Aquino [employer]ER Work Phone: [facility] 05-11-2023 09:59-0500 Respiratory rate 18 /min Candace Aquino [employer]ER Work Phone: [facility] 05-11-2023 09:59-0500 SaO2% (BldA) [Mass fraction] 99 % Candace Aquino APRN.STOGY ROLLER Work Phone: [facility] 05-11-2023 09:59-0500 Systolic blood pressure 143 mm[Hg] Candace Aquino APRN.STOGY ROLLER Work Phone: [facility] 03-31-2023 08:05-0400 Body height 182.9 cm Jana Okabena PA-C Work Phone: [facility] 03-31-2023 08:05-0400 Body temperature 97.2 [degF] Jana Okabena PA-C Work Phone: [facility] 03-31-2023 08:05-0400 Body weight 120.39 kg Jana Okabena PA-C Work Phone: [facility] 03-31-2023 08:05-0400 Diastolic blood pressure 76 mm[Hg] Jana Jay PA-C Work Phone: [facility] 03-31-2023 08:05-0400 Heart rate 80 /min Jana Okabena PA-C Work Phone: [facility] 03-31-2023 08:05-0400 SaO2% (BldA) [Mass fraction] 96 % Jana Okabena PA-C Work Phone: [facility] 03-31-2023 08:05-0400 Systolic blood pressure 130 mm[Hg] Jana Okabena PA-C Work Phone: [facility] 03-07-2023 15:38-0400 Body height 182.6 cm Jaden Man DO Work Phone: [facility] 03-07-2023 15:38-0400 Body weight 123.83 kg Jaden Man DO Work Phone: [facility] 03-07-2023 15:38-0400 Diastolic blood pressure 78 mm[Hg] Jaden Man DO Work Phone: [facility] 03-07-2023 15:38-0400 Heart rate 71 /min Jaden Man DO Work Phone: [facility] 03-07-2023 15:38-0400 SaO2% (BldA) [Mass fraction] 95 % Jaden Man DO Work Phone: [facility] 03-07-2023 15:38-0400 Systolic blood pressure 127 mm[Hg] Jaden Man DO Work Phone: [facility] 03-04-2023 11:34-0400 Body height 182.6 cm Michelle Riley MD Work Phone: [facility] 03-04-2023 11:34-0400 Body weight 123.65 kg Michelle Riley MD Work Phone: [facility] 03-04-2023 08:08-0400 Body height 182.6 cm Genesis Podlogar [employer] Work Phone: [facility] 03-04-2023 08:08-0400 Body weight 122.38 kg Genesis Podlogar [employer] Work Phone: [facility] 03-04-2023 08:08-0400 Diastolic blood pressure 84 mm[Hg] Genesis Podlogar [employer]ER Work Phone: [facility] 03-04-2023 08:08-0400 Heart rate 71 /min Genesis Podlogar [employer]ER Work Phone: [facility] 03-04-2023 08:08-0400 Respiratory rate 18 /min Genesis Podlogar [employer]ER Work Phone: [facility] 03-04-2023 08:08-0400 SaO2% (BldA) [Mass fraction] 95 % Genesis Podlogar [employer]ER Work Phone: [facility] 03-04-2023 08:08-0400 Systolic blood pressure 128 mm[Hg] Genesis Podlogar [employer]ER Work Phone: [facility] 01-02-2023 15:19-0400 Body height 182.9 cm Christen Cheuvront [employer]ER Work Phone: [facility] 01-02-2023 15:19-0400 Body weight 120.2 kg Christen Cheuvront [employer]ER Work Phone: [facility] 09-30-2022 15:08-0400 Body height 180.3 cm Christen Cheuvront [employer]ER Work Phone: [facility] 09-30-2022 15:08-0400 Body temperature 96.3 [degF] Christen Cheuvront [employer]ER Work Phone: [facility] 09-30-2022 15:08-0400 Body weight 120.2 kg Christen Cheuvront [employer]ER Work Phone: [facility] 09-30-2022 15:08-0400 Diastolic blood pressure 75 mm[Hg] Christen Cheuvront [employer]ER Work Phone: [facility] 09-30-2022 15:08-0400 Heart rate 72 /min Christen Cheuvront [employer]ER Work Phone: [facility] 09-30-2022 15:08-0400 Respiratory rate 20 /min Christen Cheuvront [employer]ER Work Phone: [facility] 09-30-2022 15:08-0400 SaO2% (BldA) [Mass fraction] 97 % Christen Cheuvront [employer]ER Work Phone: [facility] 09-30-2022 15:08-0400 Systolic blood pressure 116 mm[Hg] Christen Cheuvront [employer]ER Work Phone: [facility] 08-30-2022 12:24-0400 Body weight 120.57 kg Genesis Podlogar [employer]ER Work Phone: [facility] 08-30-2022 12:24-0400 Diastolic blood pressure 72 mm[Hg] Genesis Podlogar [employer]ER Work Phone: [facility] 08-30-2022 12:24-0400 Heart rate 69 /min Genesis Podlogar [employer]ER Work Phone: [facility] 08-30-2022 12:24-0400 Respiratory rate 18 /min Genesis Podlogar [employer]ER Work Phone: [facility] 08-30-2022 12:24-0400 SaO2% (BldA) [Mass fraction] 95 % Genesis Podlogar [employer] Work Phone: [facility] 08-30-2022 12:24-0400 Systolic blood pressure 126 mm[Hg] Genesis Podlogar [employer]ER Work Phone: [facility] 07-30-2022 08:42-0500 Body weight 123.11 kg Chayo Hickey MD Work Phone: [facility] 07-30-2022 08:42-0500 Diastolic blood pressure 78 mm[Hg] Chayo Hickey MD Work Phone: [facility] 07-30-2022 08:42-0500 Heart rate 57 /min Chayo Hickey MD Work Phone: [facility] 07-30-2022 08:42-0500 Respiratory rate 16 /min Chayo Hickey MD Work Phone: [facility] 07-30-2022 08:42-0500 SaO2% (BldA) [Mass fraction] 95 % Chayo Hickey MD Work Phone: [facility] 07-30-2022 08:42-0500 Systolic blood pressure 122 mm[Hg] Chayo Hickey MD Work Phone: [facility] 02-02-2022 08:24-0400 Body height 181 cm Chayo Hickey MD Work Phone: [facility] 02-02-2022 08:24-0400 Body weight 122.92 kg Chayo Hickey MD Work Phone: [facility] 02-02-2022 08:24-0400 Diastolic blood pressure 72 mm[Hg] Chayo Hickey MD Work Phone: [facility] 02-02-2022 08:24-0400 Heart rate 55 /min Chayo Hickey MD Work Phone: [facility] 02-02-2022 08:24-0400 Respiratory rate 16 /min Chayo Hickey MD Work Phone: [facility] 02-02-2022 08:24-0400 SaO2% (BldA) [Mass fraction] 95 % Chayo Hickey MD Work Phone: [facility] 02-02-2022 08:24-0400 Systolic blood pressure 118 mm[Hg] Chayo Hickey MD Work Phone: [facility] 12-07-2021 09:23-0400 Body height 182.9 cm Jana Jay PA-C Work Phone: [facility] 12-07-2021 09:23-0400 Body temperature 98.49 [degF] Jana Okabena PA-C Work Phone: [facility] 12-07-2021 09:23-0400 Body weight 124.29 kg Jana Okabena PA-C Work Phone: [facility] 12-07-2021 09:23-0400 Diastolic blood pressure 62 mm[Hg] Jana Jay PA-C Work Phone: [facility] 12-07-2021 09:23-0400 Heart rate 64 /min Jana Okabena PA-C Work Phone: [facility] 12-07-2021 09:23-0400 SaO2% (BldA) [Mass fraction] 94 % Jana Okabena PA-C Work Phone: [facility] 12-07-2021 09:23-0400 Systolic blood pressure 122 mm[Hg] Jana Okabena PA-C Work Phone: [facility] 12-05-2021 14:37-0400 Body height 182.9 cm Jana Jay PA-C Work Phone: [facility] 12-05-2021 14:37-0400 Body temperature 98.2 [degF] Jana Jay PA-C Work Phone: [facility] 12-05-2021 14:37-0400 Body weight 122.92 kg Jana Okabena PA-C Work Phone: [facility] 12-05-2021 14:37-0400 Diastolic blood pressure 80 mm[Hg] Jana Okabena PA-C Work Phone: [facility] 12-05-2021 14:37-0400 Heart rate 77 /min Jana Jay PA-C Work Phone: [facility] 12-05-2021 14:37-0400 SaO2% (BldA) [Mass fraction] 97 % Jana Jay PA-C Work Phone: [facility] 12-05-2021 14:37-0400 Systolic blood pressure 145 mm[Hg] Jana Okabena PA-C Work Phone: [facility] 12-05-2021 10:02-0400 Body weight 123.56 kg Chayo Hickey MD Work Phone: [facility] 12-05-2021 10:02-0400 Diastolic blood pressure 78 mm[Hg] Chayo Hickey MD Work Phone: [facility] 12-05-2021 10:02-0400 Heart rate 68 /min Chayo Hickey MD Work Phone: [facility] 12-05-2021 10:02-0400 Respiratory rate 16 /min Chayo Hickey MD Work Phone: [facility] 12-05-2021 10:02-0400 SaO2% (BldA) [Mass fraction] 97 % Chayo Hickey MD Work Phone: [facility] 12-05-2021 10:02-0400 Systolic blood pressure 132 mm[Hg] Chayo Hickey MD Work Phone: [facility] 11-30-2021 08:00-0400 Diastolic blood pressure 82 mm[Hg] Justyna Lemnanette PT [facility] 11-30-2021 08:00-0400 Systolic blood pressure 145 mm[Hg] Justyna Latham PT [facility] 10-12-2021 10:21-0400 Body height 182.9 cm Jaden Man DO Work Phone: [facility] 10-12-2021 10:21-0400 Body weight 124.29 kg Jaden Man DO Work Phone: [facility] 10-12-2021 10:21-0400 Diastolic blood pressure 84 mm[Hg] Jaden Donovan DO Work Phone: [facility] 10-12-2021 10:21-0400 Heart rate 78 /min Jaden Man DO Work Phone: [facility] 10-12-2021 10:21-0400 Respiratory rate 16 /min Jaden Man DO Work Phone: [facility] 10-12-2021 10:21-0400 SaO2% (BldA) [Mass fraction] 96 % Jaden Man DO Work Phone: [facility] 10-12-2021 10:21-0400 Systolic blood pressure 148 mm[Hg] Jaden Man DO Work Phone: [facility] 09-11-2021 08:10-0400 Body height 182.9 cm Omar Miller DO Work Phone: [facility] 09-11-2021 08:10-0400 Body weight 117.94 kg Omar Sanfordnan DO Work Phone: [facility] 09-11-2021 08:10-0400 Diastolic blood pressure 78 mm[Hg] Omar Sanfordnan DO Work Phone: [facility] 09-11-2021 08:10-0400 Systolic blood pressure 130 mm[Hg] Omar Sanfordnan DO Work Phone: [facility] Encounters Encounter Date Encounter Type Care Provider Facility Start: 04-18-2025 End: 04-18-2025 ambulatory MIRIAM COTE Facility:[facility] Start: 03-03-2025 End: 03-03-2025 ambulatory FRANK LAL Facility:[facility] Start: 03-03-2025 End: 03-03-2025 ambulatory FRANK LAL Facility:[facility] Start: 03-02-2025 End: 03-02-2025 ambulatory CHAYO HICKEY Facility:[facility] Start: 03-02-2025 End: 03-02-2025 Patient encounter procedure Chayo Hickey MD Work Phone: [facility] Comment on above: Bilateral hip pain ( Primary Dx); Pain in both lower extremities; Diabetes mellitus type II (HCC); Encounter for immunization Start: 03-02-2025 End: 03-02-2025 ambulatory CHAYO HICKEY Facility:[facility] Start: 02-26-2025 End: 03-01-2025 Refill [facility] [employer] Work Phone: [facility] Comment on above: Refill Request Start: 02-18-2025 End: 02-18-2025 Refill Jaden Man DO Work Phone: Neurology Comment on above: Refill Request Start: 02-16-2025 End: 02-17-2025 Refill [facility] [employer] Work Phone: [facility] Comment on above: Refill Request Start: 12-30-2024 End: 12-30-2024 Refill Chayo Hickey MD Work Phone: [facility] [place] Comment on above: Refill Request Start: 12-22-2024 End: 12-22-2024 Refill Genesis Podlogar BURIAL VAULT MAKER.STOGY ROLLER Work Phone: [facility] Comment on above: Refill Request Start: 12-08-2024 End: 12-08-2024 Refill Genesis Podlogar [employer] MAKER.STOGY ROLLER Work Phone: Family [facility] Comment on above: Refill Request Start: 12-08-2024 End: 12-08-2024 Telemedicine consultation with patient Jaden Man DO Work Phone: Neurology Start: 12-08-2024 End: 12-08-2024 ambulatory Jaden Man DO Work Phone: Neurology Comment on above: Farley-Ekbom syndrom e (Primary Dx); Restless legs syndrome (RLS); 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 Start: 11-24-2024 End: 11-24-2024 Telephone encounter Sleep Center Main Work Phone: Neurology Start: 11-18-2024 End: 11-18-2024 Office outpatient visit 25 minutes Larry Lynch MD Work Phone: [facility] Comment on above: Acute midline low ba ck pain without sciatica (Primary Dx) Start: 11-18-2024 End: 11-18-2024 ambulatory CHAYO HICKEY Facility:[facility] Start: 11-02-2024 End: 11-02-[address] [facility] Facility:[facility] Start: 11-02-2024 Encounter for other preprocedural examination CHAYO HICKEY [facility] Start: 11-01-2024 End: 11-01-2024 Patient encounter procedure Michelle Riley MD Work Phone: Otolaryngology Comment on above: JOSÉ MIGUEL (obstructive sle ep apnea) (Primary Dx); Intolerance of continuous positive airway pressure (CPAP) ventilation Start: 11-01-2024 End: 11-01-2024 ambulatory CHAYO HICKEY Facility:[facility] Start: 10-30-2024 End: 10-30-2024 Patient encounter procedure Priti Dockery APRN.CNP Work Phone: [facility] Comment on above: Acute midline low ba ck pain without sciatica (Primary Dx) Start: 10-30-2024 End: 10-30-2024 ambulatory CHAYO HICKEY Facility:[facility] Start: 10-28-2024 End: 10-29-2024 Refill Genesis Spencer APRN.CNP Work Phone: [facility] Comment on above: Refill Request Start: 10-06-2024 End: 10-12-2024 E-mail encounter from caregiver Ganesh Rogersvinny PHILLIPS Work Phone: Sleep Disorders Start: 10-06-2024 End: 10-12-2024 Telephone encounter Ganesh Ojeda APRN.CNP Work Phone: Neurology Comment on above: PAP Therapy Follow U p (Download ) sleep study Start: 10-02-2024 End: 10-02-2024 Chart abstracting Sleep [facility] Main Work Phone: Neurology Start: 10-01-2024 End: 10-01-2024 ambulatory CHAYO HICKEY Facility:[facility] Start: 09-17-2024 End: 09-17-2024 Patient encounter procedure Frank Lal APRN.CNP Work Phone: Neurology Comment on above: Restless legs syndro me (RLS) (Primary Dx); 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; Obstructive sleep apnea; Neuropathy Start: 09-17-2024 End: 09-17-2024 ambulatory CHAYO HICKEY Facility:[facility] Start: 09-06-2024 End: 09-06-2024 Follow-up encounter Candace Aquino APRN.CNP Work Phone: [facility] Start: 09-04-2024 End: 09-04-2024 ambulatory CHAYO HICKEY Facility:[facility] Start: 08-31-2024 End: 08-31-2024 Office outpatient visit 15 minutes Raisa Han APRN.CNP Work Phone: Pulmonary Medicine Comment on above: Lung nodules (Primar y Dx); Calcified granuloma of lung Start: 08-31-2024 End: 10-31-2024 Follow-up encounter Raisa Han APRN.CNP Work Phone: Pulmonary Medicine Start: 08-31-2024 End: 08-31-2024 ambulatory CHAYO HICKEY Facility:[facility] Start: 08-31-2024 End: 08-31-2024 Subsequent hospital visit by physician Ct 2 Main Qb (I-Stat) Radiology Comment on above: Lung nodules [R91.8] Start: 08-31-2024 End: 08-31-2024 Patient encounter procedure Genesis Spencer APRN.CNP Work Phone: [facility] Comment on above: Controlled type 2 di abetes mellitus without complication, without long-term current use of insulin (HCC) (Primary Dx); Hypertriglyceridemia; Encounter for screening fecal occult blood testing; Primary hypertension; JOSÉ MIGUEL (obstructive sleep apnea); Restless legs syndrome (RLS); Lung nodules Start: 08-31-2024 End: 08-31-2024 ambulatory CHAYO HICKEY Facility:[facility] Start: 07-28-2024 End: 07-29-2024 Refill Genesis Spencer APRN.CNP Work Phone: Neurology Comment on above: Refill Request Start: 07-22-2024 End: 07-22-2024 [facility] Ganesh Ojeda APRN.STOGY ROLLER Work Phone: Sleep Disorders Comment on above: Obstructive sleep ap kendrick (Primary Dx); Restless legs syndrome (RLS); 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; Chronic use of opiate for therapeutic purpose; Type 2 diabetes mellitus without complication, without long-term current use of insulin (HCC); Obesity, Class II, BMI 35-39.9; Obesity, Class I, BMI 30-34.9 Start: 07-13-2024 End: 07-13-2024 Refill Chayo Hickey MD Work Phone: [facility] Comment on above: Refill Request Start: 06-22-2024 End: 06-22-2024 Patient Msg Ganesh Ojeda APRN.STOGY ROLLER Work Phone: Neurology Comment on above: medication refill URI, acute (Primary Dx) Start: 06-21-2024 End: 06-22-2024 Refill Chayo Hickey MD Work Phone: [facility] Comment on above: Refill Request Start: 06-05-2024 End: 06-07-2024 Refill Ganesh Ojeda APRN.STOGY ROLLER Work Phone: Neurology Comment on above: Refill Request Start: 05-21-2024 End: 05-24-2024 Refill Genesis Payanseth SOTO.STOGY ROLLER Work Phone: [facility] Comment on above: Refill Request Start: 05-18-2024 End: 05-18-2024 Refill Genesis Podlogneisha SOTO.STOGY ROLLER Work Phone: [facility] [place] Comment on above: Refill Request Start: 05-09-2024 End: 05-10-2024 Refill Chayo Hickey MD Work Phone: [facility] [place] Comment on above: Refill Request Start: 04-26-2024 End: 04-26-2024 Refill Chayo Hickey MD Work Phone: [facility] [place] Comment on above: Refill Request Start: 04-04-2024 End: 04-05-2024 Refill Chayo Hickey MD Work Phone: [facility] Comment on above: Refill Request Start: 03-16-2024 End: 03-16-2024 ambulatory Ganesh Ojeda APRN.[facility] Work Phone: Neurology Comment on above: Obstructive sleep ap kendrick (Primary Dx); Restless legs syndrome (RLS); [facility] prescription opiate use; Chronic use of opiate for therapeutic purpose; Obesity, Class II, BMI 35-39.9; Type 2 diabetes mellitus without complication, without long-term current use of insulin ([facility]) Start: 03-16-2024 End: 03-16-2024 Telemedicine consultation with patient Ganesh Ojeda APRN.STOGY ROLLER Work Phone: Neurology Start: 03-15-2024 End: 03-15-2024 Telephone encounter Chayo Hickey MD Work Phone: [facility] Comment on above: Results; Stress Test Start: 03-12-2024 End: 03-12-2024 Orders Only Jaden Man DO Work Phone: Neurology Comment on above: JOSÉ MIGUEL (obstructive sle ep apnea) (Primary Dx) Sleep Study Start: 03-04-2024 End: 03-04-2024 Telephone encounter Chayo Hickey MD Work Phone: [facility] [place] Comment on above: Results Start: 03-03-2024 End: 03-04-2024 Telephone encounter Genesis Spencer APRN.STOGY ROLLER Work Phone: [facility] Comment on above: Results Start: 03-03-2024 End: 03-03-2024 Office outpatient visit 40 minutes Raisa Han APRN.STOGY ROLLER Work Phone: Pulmonary Medicine Comment on above: Lung nodules (Primar y Dx); Calcified granuloma of lung (HCC) Start: 03-03-2024 End: 03-03-2024 Subsequent hospital visit by physician Ct Main [facility] Work Phone: Radiology Comment on above: Lung nodules [R91.8] Start: 03-02-2024 End: 03-02-2024 Chart abstracting [facility] Work Phone: Neurology Comment on above: PSG Check In Start: 03-02-2024 End: 03-02-2024 Patient encounter procedure Genesis Spencer APRN.STOGY ROLLER Work Phone: [facility] Comment on above: Type 2 diabetes makenna itus without complication, without long- term current use of insulin (HCC) (Primary Dx); Hypertriglyceridemia; Encounter for immunization; Major depressive disorder, remission status unspecified, unspecified whether recurrent; Chest pain, unspecified type; JOSÉ MIGUEL (obstructive sleep apnea); Essential hypertension; Alternating constipation and diarrhea Start: 03-02-2024 End: 03-02-2024 Telephone encounter Chayo Hickey MD Work Phone: [facility] [place] Comment on above: Results Start: 02-04-2024 End: 02-04-2024 ambulatory Genesis Spencer APRN.STOGY ROLLER Work Phone: [facility] Comment on above: Urine Albumin: Creat inine Ratio Start: 01-23-2024 Refill Candace frey APRN.STOGY ROLLER Work Phone: [facility] Comment on above: Refill Request Start: 12-25-2023 End: 12-25-2023 Office outpatient new 45 minutes Raisa Han BRITTANY.STOGY ROLLER Work Phone: Pulmonary Medicine Comment on above: Lung nodules (Primar y Dx); Calcified granuloma of lung (HCC); Bronchiolitis Start: 12-24-2023 Refill Jaden Man DO Work Phone: Neurology Comment on above: Refill Request Start: 12-24-2023 Refill Jaden Man DO Work Phone: Neurology Comment on above: Refill Request Start: 12-17-2023 Telephone encounter Jaden Man DO Work Phone: Neurology Comment on above: Orders (psg) Start: 12-05-2023 End: 12-05-2023 Patient encounter procedure Jaden Man DO Work Phone: Neurology Comment on above: JOSÉ MIGUEL on CPAP (Primary Dx); Restless legs syndrome (RLS); 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 Start: 12-05-2023 ambulatory Chayo Hickey MD Work Phone: [facility] Comment on above: Possible Ozempic iss ues??? Start: 12-05-2023 Telephone encounter Sagar Hickey MD Work Phone: [facility] Comment on above: Results Start: 12-05-2023 End: 12-05-2023 Subsequent hospital visit by physician [facility] Work Phone: [facility] Comment on above: Abnormal chest x-ray with multiple lung nodules [R91.8] Start: 12-05-2023 End: 12-05-2023 Subsequent hospital visit by physician Xr [facility] Work Phone: Radiology Comment on above: Abnormal chest x-ray [R93.89] Start: 12-03-2023 Telephone encounter Sagar Hickey MD Work Phone: [facility] Comment on above: Results Start: 11-26-2023 Telephone encounter Sagar Hickey MD Work Phone: [facility] Comment on above: Results Start: 11-26-2023 End: 11-26-2023 Subsequent hospital visit by physician Joanie [facility] Work Phone: Radiology Comment on above: Nausea [R11.0] Start: 11-25-2023 End: 11-25-2023 Patient encounter procedure Chayo Hickey MD Work Phone: [facility] Comment on above: Nausea (Primary Dx); Diaphoresis; Dizziness Start: 11-24-2023 Telephone encounter Sleep Cent er Main Work Phone: Neurology Start: 10-29-2023 ambulatory Frank Lal B[employer]IAL VAULT MAKER.STOGY ROLLER Work Phone: Neurology Comment on above: Dental device Start: 10-12-2023 Refill Genesis Spencer APRN.STOGY ROLLER Work Phone: [facility] Comment on above: Refill Request Start: 08-29-2023 End: 08-29-2023 Patient encounter procedure Genesis Spencer BURIAL VAULT MAKER.STOGY ROLLER Work Phone: [facility] Comment on above: Essential hypertensi on (Primary Dx); Hypertriglyceridemia; JOSÉ MIGUEL on CPAP; Major depressive disorder, remission status unspecified, unspecified whether recurrent; Type 2 diabetes mellitus without complication, without long-term current use of insulin (HCC); Encounter for screening fecal occult blood testing Restless legs syndro me (RLS) (Primary Dx); JOSÉ MIGUEL on CPAP; 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 Start: 08-21-2023 Telephone encounter Frank martinez APRN.STOGY ROLLER Work Phone: Neurology Comment on above: PAP Therapy Follow U p (07/22/23 - 08/20/23) Start: 06-12-2023 End: 06-12-2023 ambulatory LUCI BALL Facility:[facility] Start: 06-04-2023 ambulatory Genesis Spencer BURIAL VAULT MAKER.STOGY ROLLER Work Phone: [facility] Comment on above: Ozempic Start: 05-27-2023 End: 05-27-2023 Patient encounter procedure Karli Correa BURIAL VAULT MAKER.STOGY ROLLER Work Phone: Neurology Comment on above: Restless legs syndro me (RLS) (Primary Dx); [facility] prescription opiate use; JOSÉ MIGUEL on CPAP; Dry mouth Start: 05-11-2023 End: 05-11-2023 Patient encounter procedure Candace Aquino BURIAL VAULT MAKER.STOGY ROLLER Work Phone: [facility] Comment on above: Back spasm (Primary Dx) Start: 05-05-2023 ambulatory Genesis Podlogar BURIAL VAULT MAKER.STOGY ROLLER Work Phone: [facility] Comment on above: Zoloft Start: 04-25-2023 Patient Msg [facility] Provider Neurolog y Comment on above: refill Start: 04-15-2023 ambulatory Genesis Podlogar B[employer]IAL VAULT MAKER.STOGY ROLLER Work Phone: [facility] [place] Comment on above: Testosterone Start: 04-13-2023 Refill Genesis Podlogar BURIAL VAULT MAKER.STOGY ROLLER Work Phone: [facility] Comment on above: Refill Request Start: 04-07-[address] [facility] Jana Thompson PA-C Work Phone: General Surgery Comment on above: Upcoming surgery Start: 04-07-2023 ambulatory Jana Carvalho Work Phone: [facility] Start: 03-31-2023 End: 03-31-2023 Patient encounter procedure Jana Thompson PA-C Work Phone: General Surgery Comment on above: Lipoma of right shou lder Start: 03-28-2023 Telephone encounter [facility] Comment on above: Patient Question Start: 03-07-2023 End: 03-07-2023 Patient encounter procedure Jaden Man DO Work Phone: Neurology Comment on above: Restless legs syndro me (RLS) (Primary Dx) Start: 03-05-2023 ambulatory Genesis Podlogar BURIAL VAULT MAKER.STOGY ROLLER Work Phone: [facility] Comment on above: Ozempic script Glucose monitor Start: 03-04-2023 End: 03-04-2023 Patient encounter procedure Genesis Spencer APRN.[facility] Work Phone: [facility] Comment on above: Annual physical exam (Primary Dx); Rectal bleeding; Lump of skin of back; Encounter for immunization; Hypogonadism in male; Type 2 diabetes mellitus without complication, without long-term current use of insulin (HCC); JOSÉ MIGUEL on CPAP; Essential hypertension; Arthralgia, unspecified joint; Hypertriglyceridemia; Major depressive disorder, remission status unspecified, unspecified whether recurrent JOSÉ MIGUEL (obstructive sle ep apnea) (Primary Dx) Start: 01-02-2023 End: 01-02-2023 ambulatory Karli Correa APRN.[facility] Work Phone: Neurology Comment on above: JOSÉ MIGUEL (obstructive sle ep apnea) (Primary Dx); Intolerance of continuous positive airway pressure (CPAP) ventilation; Restless legs syndrome (RLS); Encounter for long-term opiate analgesic use Start: 01-02-2023 End: 01-02-2023 Telemedicine consultation with patient Karli Correa APRN.STOGY ROLLER Work Phone: [facility] Start: 11-25-2022 ambulatory Karli smart APRN.[facility] Work Phone: Neurology Comment on above: Methadone script Start: 11-19-2022 Refill Chayo Hickey MD Work Phone: [facility] Comment on above: Refill Request Start: 09-30-2022 End: 09-30-2022 Patient encounter procedure Karli Correa APRN.STOGY ROLLER Work Phone: Neurology Comment on above: Restless legs syndro me (RLS) (Primary Dx); JOSÉ MIGUEL on CPAP; 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 Start: 09-16-2022 Refill Chayo Hickey MD Work Phone: [facility] Comment on above: Refill Request Start: 09-05-2022 Refill Ganesh Ojeda APRN.[facility] Work Phone: Neurology Comment on above: Refill Request Start: 08-30-2022 Telephone encounter Genesis Schuylerelvin brandie SOTO.STOGY ROLLER Work Phone: [facility] Comment on above: Patient Update Start: 08-30-2022 End: 08-30-2022 Patient encounter procedure Genesis Spencer BRITTANY.STOGY ROLLER Work Phone: [facility] Comment on above: Diabetes mellitus ty pe II (HCC) (Primary Dx); Oswald's palsy Start: 08-20-2022 ambulatory Chayo Hickey MD Work Phone: [facility] Comment on above: Oswald s palsy Start: 08-20-2022 End: 08-20-2022 Emergency department patient visit Sagar Hickey Facility:[facility] Start: 08-14-2022 Telephone encounter Sagar Hickey MD Work Phone: [facility] Comment on above: Results Start: 08-02-2022 End: 08-02-2022 ambulatory GANESHABDIFATAH ROGERSLLY Facility:[facility] Start: 08-02-2022 End: 08-02-2022 ambulatory Ganesh Rogerslly BRITTANY.STOGY ROLLER Work Phone: Neurology Comment on above: JOSÉ MIGUEL on CPAP (Primary Dx); Restless legs syndrome (RLS); Chronic use of opiate for therapeutic purpose; Idiopathic small fiber peripheral neuropathy; Benign prostatic hyperplasia, unspecified whether lower urinary tract symptoms present; Hypertriglyceridemia; Iron deficiency anemia, unspecified iron deficiency anemia type; Primary hypertension; Obesity, Class II, BMI 35-39.9 Start: 08-02-2022 End: 08-02-2022 Telemedicine consultation with patient Ganesh Ojeda BRITTANY.STOGY ROLLER Work Phone: [facility] Start: 07-30-2022 End: 07-30-2022 Patient encounter procedure Chayo Hickey MD Work Phone: [facility] Comment on above: Hypogonadism in male (Primary Dx); Primary hypertension; Current moderate episode of major depressive disorder without prior episode (HCC); Prediabetes Start: 07-22-2022 Telephone encounter Ganesh Craig APRN.STOGY ROLLER Work Phone: Neurology Comment on above: PAP Therapy Follow U p (06/22/22 - 07/21/22 ) Start: 06-18-2022 Telephone encounter Genesis diego APRN.MARTA Work Phone: [facility] Comment on above: Results Start: 06-09-2022 Refill Renetta Lexykevin castro APRN.CNP Work Phone: Neurology Comment on above: Refill Request Start: 05-11-2022 Refill Chayo Hickey MD Work Phone: [facility] [place] Comment on above: Refill Request Start: 04-08-2022 Refill Jaden Man DO Work Phone: Neurology Comment on above: Refill Request Start: 04-01-2022 Telephone encounter Genesis diego APRN.MARTA Work Phone: [facility] [place] Comment on above: Results Start: 03-14-2022 End: 03-14-2022 ambulatory Jaden Man DO Work Phone: Neurology Comment on above: Restless legs syndro me (RLS) (Primary Dx); Chronic use of opiate for therapeutic purpose; JOSÉ MIGUEL on CPAP; Iron deficiency anemia, unspecified iron deficiency anemia type; Prediabetes; Primary hypertension; Hypogonadism in male; Idiopathic small fiber peripheral neuropathy; Hypertriglyceridemia; Benign prostatic hyperplasia, unspecified whether lower urinary tract symptoms present Start: 03-14-2022 End: 03-14-2022 Telemedicine consultation with patient Jaden Man DO Work Phone: [facility] Start: 03-13-2022 Telephone encounter Genesis diego APRN.MARTA Work Phone: [facility] Comment on above: Results Start: 03-04-2022 Telephone encounter Genesis diego APRN.CNP Work Phone: [facility] Comment on above: Patient Question (Te stosterone) Start: 02-28-2022 Telephone encounter Sleep Cent [facility] Main Work Phone: Neurology Comment on above: PAP Therapy Follow U p Start: 02-09-2022 Get Medical Advice Jaden Man DO Work Phone: Neurology Comment on above: Methadone refill Start: 02-08-2022 Telephone encounter Sagar Hickey MD Work Phone: [facility] [place] Comment on above: Results Start: 02-05-2022 ambulatory Chayo Hickey MD Work Phone: [facility] Comment on above: Testosterone Start: 02-05-2022 Telephone encounter Sagar Hickey MD Work Phone: [facility] Comment on above: Insurance Authorizat ion (Testosterone) Start: 02-04-2022 Telephone encounter Jaden perezshante Karoтатьяна DO Work Phone: Neurology Comment on above: Appointment Start: 02-02-2022 End: 02-02-2022 Patient encounter procedure Chayo Hickey MD Work Phone: [facility] [place] Comment on above: Annual physical exam (Primary Dx); Hypogonadism in male; Erythrocytosis; Dermatitis; Prediabetes; Essential hypertension; Hypertriglyceridemia; Erectile dysfunction, unspecified erectile dysfunction type; JOSÉ MIGUEL on CPAP; RLS (restless legs syndrome); S/P Achilles tendon repair; Arthralgia, unspecified joint Start: 01-21-2022 Telephone encounter Sagar Hickey MD Work Phone: [facility] Comment on above: Patient Question Patient Update Erroneous encounter- disregard Start: 12-19-2021 End: 12-19-2021 Patient encounter procedure Cartlon Horn MD Work Phone: Orthopaedics Comment on above: Status post Achilles tendon repair (Primary Dx) Start: 12-14-2021 End: 12-14-2021 ambulatory Justyna Vann [facility] Physical Therapy Comment on above: Achilles tendinosis of left lower extremity (Primary Dx) Start: 12-07-2021 End: 12-07-2021 Patient encounter procedure Jana Thompson PA-C Work Phone: General Surgery Comment on above: Thrombosed hemorrhoi ds Start: 12-05-2021 End: 12-05-2021 Patient encounter procedure Chayo Hickey MD Work Phone: [facility] Comment on above: Thrombosed hemorrhoi ds (Primary Dx) External hemorrhoid, thrombosed (Primary Dx) Start: 2021 ambulatory Chayo Hickey MD Work Phone: [facility] Comment on above: hemorrhoid treatment Start: 11-30-2021 End: 11-30-2021 ambulatory Justyna Latham PT [facility] Physical Therapy Comment on above: Achilles tendinosis of left lower extremity (Primary Dx) Start: 11-29-2021 Telephone encounter Sleep Cent [facility] Main Work Phone: Neurology Comment on above: PAP Therapy Follow U p Start: 11-28-2021 End: 11-28-2021 Patient encounter procedure Carlton Horn MD Work Phone: Orthopaedics Comment on above: Achilles tendinosis of left lower extremity (Primary Dx) Start: 11-05-2021 End: 11-05-2021 Patient encounter procedure Carlton Horn MD Work Phone: Orthopaedics Comment on above: Achilles tendinosis of left lower extremity (Primary Dx) Start: 10-12-2021 ambulatory Renetta Lexy matthew ELLISSTOGY ROLLER Work Phone: [facility] Start: 10-12-2021 End: 10-12-2021 Patient encounter procedure Jaden Man DO Work Phone: Neurology Comment on above: RLS (restless legs s yndrome) (Primary Dx) Lyrica refill Start: 10-05-2021 End: 10-05-2021 ambulatory Renetta Rees APRN.STOGY ROLLER Work Phone: Neurology Comment on above: Restless legs syndro me (RLS); Chronic use of opiate for therapeutic purpose Start: 10-05-2021 End: 10-05-2021 Telemedicine consultation with patient Renetta Schneiderizabela ELLISSTOGY ROLLER Work Phone: [facility] Start: 10-03-2021 End: 10-03-2021 Patient encounter procedure Carlton Horn MD Work Phone: Orthopaedics Comment on above: Achilles tendinosis of left lower extremity (Primary Dx) Start: 09-26-2021 Refill Efrain Nixon MD Work Phone: Neurology Comment on above: Refill Request Start: 09-22-2021 Get Medical Advice Efrain Nixon MD Work Phone: Neurology Comment on above: Lyrica refill Start: 09-21-2021 End: 09-21-2021 Patient encounter procedure Carlton Horn MD Work Phone: Orthopaedics Comment on above: Achilles tendinosis of left lower extremity (Primary Dx) Start: 09-12-2021 ambulatory [facility] Provider Gillian mcdonnell Comment on above: vitamin D Start: 09-12-2021 E-mail encounter fro m caregiver [facility] Provider MONSERRAT CUBA [facility] Start: 09-12-2021 End: 09-12-2021 Patient encounter procedure Carlton Horn MD Work Phone: Orthopaedics Comment on above: Achilles tendinosis of left lower extremity (Primary Dx) Start: 09-11-2021 End: 09-11-2021 Patient encounter procedure Sauravtim PricePaulquirino CAVAZOS Work Phone: [facility] Comment on above: Benign prostatic hyp erplasia, unspecified whether lower urinary tract symptoms present (Primary Dx); Hypogonadism in male; Microhematuria Start: 08-21-2021 End: 08-21-2021 ambulatory CARLTON HORN Facility:[facility] Start: 07-16-2021 Telephone encounter Sagar Hickey MD Work Phone: Family Medicine [facility] Comment on above: Results Start: 05-08-2020 End: 05-08-2020 Subsequent hospital visit by physician Joanie [facility] Work Phone: Radiology Comment on above: Cervical radiculopat hy [M54.12] Start: 02-18-2017 Ambulatory Pepe Kennedy Facility :[facility] Procedures Date Procedure Procedure Detail Performing Clinician Start: 08-31-2024 Ct thorax w/o contra st material Raisa Ciuni [employer]IAL [employer] MAKER.STOGY ROLLER Work Phone: Start: 03-03-2024 Ct thorax w/o contra st material Riasa Ciuni [employer] VAULT MAKER.STOGY ROLLER Work Phone: Start: 12-05-2023 Ct thorax w/o contra st material Chayo Hickey MD Work Phone: Start: 12-05-2023 Radiologic exam ches t 2 views Chayo Hickey MD Work Phone: Start: 11-26-2023 Radiologic exam ches t 2 views Chayo Hickey MD Work Phone: Start: 03-04-2023 INFLUENZA VACCINE, A GE 6 MO - 64 YR, QUADRIVALENT (AFLURIA, FLULAVAL, FLUZONE) Genesis [employer] VAULT MAKER.STOGY ROLLER Work Phone: Start: 12-09-2021 Adult depression scr eening assessment Jana Thompson PA-C Work Phone: Start: 10-01-2021 Adult depression scr eening assessment [facility] Provider Start: 09-11-2021 Urnls dip stick/tabl et rgnt auto w/o microscopy Omar Miller DO Work Phone: Start: 07-03-2021 Adult depression scr eening assessment Carlton Horn MD Work Phone: Start: 05-08-2020 Radex spine cervical 4 or 5 views Chayo Hickey MD Work Phone: Start: 02-18-2020 Colonoscopy Carlton Horn MD Work Phone: Start: 04-23-2019 [object Object] Comment on above: Performed By: #### P SA, TEST #### [place] [address] Plan of Treatment Date Care Activity Detail Author Start: 03-10-2030 Urine microalbumin profile [facility] Start: 07-30-2027 Prostate specific antigen measurement Prostate Cancer Screening Discussion [facility] Start: 01-26-2027 LIPID SCREEN LIPID SCREEN [facility] Start: 03-02-2026 Annual PCP Team Chronic Disease Visit Annual PCP Team Chronic Disease Visit [facility] Start: 11-18-2025 BP Controlled (<130/80) BP Controlled (<130/80) [facility] Start: 10-30-2025 BP Controlled (<130/80) BP Controlled (<130/80) [facility] Start: 09-17-2025 BP Controlled (<130/80) BP Controlled (<130/80) [facility] Start: 09-04-2025 Hepatitis B surface antibody level LDL Cholesterol [facility] Start: 09-03-2025 Screening for malignant neoplasm of colon [facility] Start: 08-31-2025 Annual PCP Team Chronic Disease Visit Annual PCP Team Chronic Disease Visit [facility] Start: 08-31-2025 BP Controlled (<130/80) BP Controlled (<130/80) [facility] Start: 08-31-2025 Diabetic foot examination Diabetic Foot Exam [facility] Start: 08-31-2025 End: 08-31-2025 Patient encounter procedure Radiology Comment on above: Lung nodules Est Lung c/m/n [address] yr + CT Chest Start: 07-30-2025 DIABETES SCREEN DIABETES SCREEN [facility] Start: 06-22-2025 BP Controlled (<130/80) BP Controlled (<130/80) [facility] Start: 06-03-2025 End: 06-03-2025 Patient encounter procedure 06/03/2025 1:00 PM EST Office Visit Family Medicine [facility] [address] [place], [place] [id number] Elenita Ball MD [address] [place], [place] [id number] est care [facility] Comment on above: est care Start: 04-02-2025 End: 04-02-2025 ambulatory 04/02/2025 11:00 AM EDT OT/PT/Speech Visit [facility] [address] [place] [address] Ian Knight, PT [address] [place] [address] Dx: Bilateral hip pain [M25.551, M25.552]; Pain in both lower extremities [M79.604, M79.605] [facility] Comment on above: Dx: Bilateral hip pain [M25.551, M25.552 ]; Pain in both lower extremities [M79.604, M79.605] Start: 03-07-2025 Hemoglobin A1c measurement HbA1C [facility] Start: 03-03-2025 BP Controlled (<130/80) BP Controlled (<130/80) [facility] in Start: 03-03-2025 End: 03-03-2025 Patient encounter procedure 03/03/2025 10:30 AM EDT Office Visit Neurology [address] [place], [place] [id number] Frank Lal APRN.STOGY ROLLER [address] [place] [address] Methadone script and RLS Neurology Comment on above: Methadone script and RLS Start: 03-02-2025 Annual PCP Team Chronic Disease Visit Annual PCP Team Chronic Disease Visit [facility] Start: 03-02-2025 BP Controlled (<130/80) BP Controlled (<130/80) [facility] Start: 03-02-2025 End: 06-01-2025 Comprehensive metabolic 2000 panel - Serum or Plasma [facility] Comment on above: Expected: 03/02/2025, Expires: Start: 03-02-2025 Covid-19 Vaccine () Covid-19 Vaccine () [facility] Comment on above: Postponed from 02/15/2024 (Declined at t his time) Start: 03-02-2025 Covid-19 Vaccine () Covid-19 Vaccine () [facility] Comment on above: Postponed from 02/15/2024 (Declined at t his time) Start: 03-02-2025 End: 06-01-2025 Hemoglobin A1c in Blood [facility] Comment on above: Expected: 03/02/2025, Expires: Start: 03-02-2025 Hepatitis B screening Urine Albumin:Creatinine Ratio [facility] Start: 03-02-2025 End: 06-01-2025 Microalbumin/Creatinine [Mass Ratio] in Urine [facility] Comment on above: Expected: 03/02/2025, Expires: Start: 03-02-2025 End: 03-02-2025 Patient encounter procedure 03/02/2025 11:00 AM EDT Office Visit Family Medicine [facility] [address] [place], [place] [address] Chayo Hickey MD [address] [place], [place] [address] 6 month follow up [facility] Comment on above: 6 month follow up Start: 02-18-2025 End: 05-20-2025 QUANTITATIVE TOXICOLOGY PANEL, URINE [facility] Comment on above: Expected: 02/18/2025 (Approximate), Expi res: 05/20/2025 Start: 02-18-2025 End: 05-20-2025 TOXICOLOGY SCREEN, ROUTINE URINE [facility] Work Phone: Comment on above: Expected: 02/18/2025, Expires: Start: 02-14-2025 Influenza vaccination Influenza Vaccine (#1) [facility] Start: 02-14-2025 LIPID SCREEN LIPID SCREEN [facility] Start: 01-26-2025 DIABETES SCREEN DIABETES SCREEN [facility] Start: 12-24-2024 BP Controlled (<130/80) BP Controlled (<130/80) [facility] Start: 12-08-2024 End: 12-08-2024 ambulatory 12/08/2024 9:40 AM EDT [facility] Neurology [address] [facility] [place] [address] Jaden Man DO [address] [place], [place] [id number] RLS meds Neurology Comment on above: RLS meds Start: 11-24-2024 Annual PCP Team Chronic Disease Visit Annual PCP Team Chronic Disease Visit [facility] Start: 11-24-2024 BP Controlled (<130/80) BP Controlled (<130/80) [facility] Start: 11-04-2024 Subsequent hospital visit by physician 11/04/2024 Hospital Encounter [facility] Operating Room [address] [place] [address] Michelle Riley MD [address] [place] [address] JOSÉ MIGUEL (obstructive sleep apnea) [G47.33] [facility] Comment on above: JOSÉ MIGUEL (obstructive sleep apnea) [G47.33] Start: 11-02-2024 End: 11-02-2024 Anesthesia consultation 11/02/2024 2:40 PM EDT PAT Pre Anesthesia [address] [place], [place] [id number] 1, Pacc [facility] [address] [place] [address] pacc Pre Anesthesia Comment on above: pacc Start: 11-01-2024 End: 11-01-2024 Patient encounter procedure 11/01/2024 11:40 AM EDT Office Visit Otolaryngology [address] [place] [address] Michelle Riley MD [address] [place] [address] I lost weight and need the inspire device ashley Otolaryngology Comment on above: I lost weight and need the inspire devic e ashley Start: 10-01-2024 End: 10-01-2024 Patient encounter procedure 10/01/2024 7:40 PM EDT Office Visit Neurology [address] [place] [address] Main, Psg Neur [address] [place] [address] pap Neurology Comment on above: pap Start: 09-17-2024 End: 09-17-2024 Patient encounter procedure Neurology Comment on above: Rls meds Start: 08-31-2024 End: 11-30-2024 Comprehensive metabolic 2000 panel - Serum or Plasma COMPREHENSIVE METABOLIC PANEL Lab Routine Controlled type 2 diabetes mellitus without complication, without long-term current use of insulin (HCC) Expected: 08/31/2024, Expires: 11/30/2024 [facility] Comment on above: Expected: 08/31/2024, Expires: Start: 08-31-2024 End: 11-30-2024 Hemoglobin A1c in Blood HEMOGLOBIN A1C Lab Routine Controlled type 2 diabetes mellitus without complication, without long-term current use of insulin (HCC) Expected: 08/31/2024, Expires: 11/30/2024 [facility] Comment on above: Expected: 08/31/2024, Expires: Start: 08-31-2024 End: 11-30-2024 Lipid 1996 panel - Serum or Plasma LIPID PANEL, FASTING Lab Routine Hypertriglyceridemia Expected: 08/31/2024, Expires: 11/30/2024 [facility] Work Phone: Comment on above: Expected: 08/31/2024, Expires: Start: 08-31-2024 End: 08-31-2024 Patient encounter procedure Radiology Comment on above: Lung nodules [R91.8] EST Lung Nodule pt 6 mo f/u w/Ciuni + CT Start: 08-31-2024 End: 08-31-2024 Patient encounter procedure 08/31/2024 11:40 AM EDT Office Visit Family Arthur [facility]ann [address] [facility] [place] [address] PodGenesis bell, B[employer]IAL VAULT MAKER.STOGY ROLLER [address] [place] [address] 6 month follow up Family [facility] Comment on above: 6 month follow up Start: 08-30-2024 End: 08-30-2024 Patient encounter procedure 08/30/2024 3:00 PM EDT Office Visit Family Arthur Vann [address] [place] [address] PodlogGenesis driver, B[employer]IAL VAULT MAKER.STOGY ROLLER [address] [facility] [place] [address] 6 month follow up Family [facility]ann Comment on above: 6 month follow up Start: 08-30-2024 Hemoglobin A1c measurement HbA1C [facility] Start: 08-28-2024 Annual PCP Team Chronic Disease Visit Annual PCP Team Chronic Disease Visit [facility] Start: 08-28-2024 BP Controlled (<130/80) BP Controlled (<130/80) [facility] Start: 08-28-2024 Covid-19 Vaccine () Covid-19 Vaccine () [facility] Comment on above: Postponed from 02/14/2023 (Declined at t his time) Start: 08-28-2024 Diabetic foot examination Diabetic Foot Exam [facility] Start: 08-28-2024 Hepatitis B Vaccine (1 of 3 - 19+ 3-dose series) Hepatitis B Vaccine (1 of 3 - 19+ 3-dose series) [facility] Comment on above: Postponed from 1988 (Declined at t his time) Start: 08-22-2024 Hepatitis B surface antibody level LDL Cholesterol [facility] Start: 08-05-2024 End: 08-05-2024 [facility] 08/05/2024 9:30 AM EST [facility] Sleep Disorders [address] [place] [address] Ganesh Ojeda, B[employer] VAULT MAKER.STOGY ROLLER [address] [place] [address] Medication F/U Sleep Disorders Comment on above: Medication F/U Start: 07-06-2024 DIABETES SCREEN DIABETES SCREEN [facility] Start: 05-30-2024 Annual PCP Team Chronic Disease Visit Annual PCP Team Chronic Disease Visit [facility] Start: 05-30-2024 BP Controlled (<130/80) BP Controlled (<130/80) [facility] Start: 05-14-2024 End: 05-14-2024 Patient encounter procedure 05/14/2024 9:05 PM EST Office Visit Neurology [address] [place] [address] pap Neurology Comment on above: pap Start: 03-16-2024 End: 06-15-2024 TOXICOLOGY SCREEN, ROUTINE URINE TOXICOLOGY SCREEN, ROUTINE URINE Lab Routine Restless legs syndrome (RLS) [facility] prescription opiate use Expected: 03/16/2024 (Approximate), Expires: 06/15/2024 [facility] Comment on above: Expected: 03/16/2024 (Approximate), Expi res: 06/15/2024 Start: 03-16-2024 End: 03-16-2024 ambulatory 03/16/2024 12:00 PM EDT [facility] Neurology [address] [place] [phone] Ganesh Ojeda APRN.STOGY ROLLER [address] [place] [address] f/u Neurology Comment on above: f/u Start: 03-07-2024 BP Controlled (<130/80) BP Controlled (<130/80) [facility] in Start: 03-04-2024 Annual PCP Team Chronic Disease Visit Annual PCP Team Chronic Disease Visit [facility] Start: 03-03-2024 End: 03-03-2024 Patient encounter procedure 03/03/2024 2:30 PM EDT Office Visit Cardiology [address] [place] [address] Nausea [R11.0] Cardiology Comment on above: Nausea [R11.0] Start: 03-03-2024 Hepatitis B screening Urine Albumin:Creatinine Ratio [facility] Start: 03-03-2024 Hepatitis B surface antibody level LDL Cholesterol [facility] Start: 03-03-2024 End: 03-03-2024 Patient encounter procedure Radiology Comment on above: Lung nodules [R91.8] Start: 03-02-2024 End: 06-01-2024 Comprehensive metabolic 2000 panel - Serum or Plasma [facility] Comment on above: Expected: 03/02/2024, Expires: 4 Start: 03-02-2024 End: 06-01-2024 Hemoglobin A1c in Blood [facility] Work Phone: Comment on above: Expected: 03/02/2024, Expires: 4 Start: 03-02-2024 End: 06-01-2024 Microalbumin/Creatinine [Mass Ratio] in Urine [facility] Comment on above: Expected: 03/02/2024, Expires: Start: 03-02-2024 End: 03-02-2024 Patient encounter procedure 03/02/2024 2:00 PM EDT Office Visit Family Medicine [facility] [address] [place] [address] Genesis Spencer APRN.STOGY ROLLER [address] [place] [address] 6 month follow up/colonoscopy due LS [facility] Medicine [facility] Comment on above: 6 month follow up/colonoscopy due LS Start: 03-01-2024 End: 03-01-2024 Patient encounter procedure [facility] Medicine [facility] Comment on above: 6 month follow up/colonoscopy due LS PSG Nausea [R11.0] Start: 02-23-2024 Hemoglobin A1c measurement HbA1C [facility] Start: 02-15-2024 Covid-19 Vaccine () Covid-19 Vaccine () [facility] Start: 02-15-2024 Influ[facility] Start: 12-25-2023 End: 03-25-2024 FUNGAL BATTERY ID [facility] Comment on above: Expected: 12/25/2023, Expires: Start: 12-25-2023 End: 03-25-2024 HISTOPLASMA AG URINE [facility] Work Phone: Comment on above: Expected: 12/25/2023, Expires: Start: 12-25-2023 End: 12-25-2023 Patient encounter procedure 12/25/2023 10:00 AM EDT Office Visit Pulmonary Medicine [address] [place] [address] Raisa Han, BURIAL VAULT MAKER.STOGY ROLLER [address] [place] [address] Bronchiolitis [J21.9] Pulmonary Medicine Comment on above: Bronchiolitis [J21.9] Start: 12-24-2023 End: 12-24-2023 Patient encounter procedure 12/24/2023 10:00 AM EDT Office Visit Neurology [address] [place] [address] JOSÉ MIGUEL on CPAP [G47.33] Neurology Comment on above: JOSÉ MIGUEL on CPAP [G47.33] Start: 12-10-2023 End: 12-25-2024 XR Chest PA and Lateral XR CHEST 2V FRONTAL/LAT Radiology Routine Abnormal chest x-ray Expected: 12/10/2023, Expires: 12/25/2024 [facility] Work Phone: Comment on above: Expected: 12/10/2023, Expires: Start: 12-09-2023 End: 12-09-2023 Patient encounter procedure 12/09/2023 10:00 AM EDT Office Visit Neurology [address] [place] [address] JOSÉ MIGUEL on CPAP [G47.33] Neurology Comment on above: JOSÉ MIGUEL on CPAP [G47.33] Start: 12-05-2023 End: 12-05-2023 Patient encounter procedure 12/05/2023 4:00 PM EDT Office Visit Neurology [address] [place] [phone] Jaden Man, DO [address] [place] [address] Follow up visit,MyChart request Neurology Comment on above: Follow up visit,MyChart request Start: 12-02-2023 End: 12-02-2023 Patient encounter procedure 12/02/2023 2:00 PM EDT Office Visit Cardiology [address] [place] [address] Nausea [R11.0]; Diaphoresis [R61] Cardiology Comment on above: Nausea [R11.0]; Diaphoresis [R61] Start: 12-01-2023 End: 12-01-2023 Patient encounter procedure 12/01/2023 1:30 PM EDT Office Visit Cardiology [address] [place] [address] Nausea [R11.0] Cardiology Comment on above: Nausea [R11.0] Start: 11-29-2023 Hemoglobin A1c measurement HbA1C [facility] Start: 11-25-2023 End: 02-24-2024 CBC W Auto Differential panel - Blood COMPLETE BLOOD COUNT AND DIFFERENTIAL Lab Routine Nausea Diaphoresis Expected: 11/25/2023, Expires: 02/24/2024 [facility] Comment on above: Expected: 11/25/2023, Expires: Start: 11-25-2023 End: 02-24-2024 Comprehensive metabolic 2000 panel - Serum or Plasma COMPREHENSIVE METABOLIC PANEL Lab Routine Nausea Diaphoresis Expected: 11/25/2023, Expires: 02/24/2024 [facility] Comment on above: Expected: 11/25/2023, Expires: Start: 11-25-2023 End: 11-25-2023 Patient encounter procedure 11/25/2023 8:20 AM EDT Office Visit Family Medicine [facility] [address] [place] [address] Chayo Hickey MD [address] [place] [phone] nausea, sweating and not feeling well [facility] Comment on above: nausea, sweating and not feeling well Start: 11-09-2023 ANNUAL PCP TEAM CHRONIC DISEASE VISIT ANNUAL PCP TEAM CHRONIC DISEASE VISIT [facility] Start: 11-09-2023 BP CONTROLLED (<130/80) BP CONTROLLED (<130/80) [facility] Start: 10-13-2023 End: 01-12-2024 TESTOSTERONE, FREE AND TOTAL TESTOSTERONE, FREE AND TOTAL Lab Routine Hypogonadism in male Expected: 10/13/2023, Expires: 01/12/2024 [facility] Work Phone: Comment on above: Expected: 10/13/2023, Expires: Start: 10-01-2023 BP CONTROLLED (<130/80) BP CONTROLLED (<130/80) [facility] Start: 09-01-2023 Hemoglobin A1c measurement HbA1C [facility] Start: 09-01-2023 Hemoglobin A1c/Hemoglobin.total in Blood HbA1C [facility] Start: 08-31-2023 3 comp foot exam completed DIABETIC FOOT EXAM [facility] Start: 08-31-2023 ANNUAL PCP TEAM CHRONIC DISEASE VISIT ANNUAL PCP TEAM CHRONIC DISEASE VISIT [facility] Start: 08-31-2023 BP CONTROLLED (<130/80) BP CONTROLLED (<130/80) [facility] Start: 08-31-2023 Diabetic foot examination Diabetic Foot Exam [facility] Start: 07-30-2023 ANNUAL PCP TEAM CHRONIC DISEASE VISIT ANNUAL PCP TEAM CHRONIC DISEASE VISIT [facility] Start: 07-30-2023 BP CONTROLLED (<130/80) BP CONTROLLED (<130/80) [facility] Start: 06-16-2023 Behavioral Health Screening Behavioral Health Screening [facility] Start: 06-16-2023 Depression Assessment Depression Assessment [facility] Start: 05-07-2023 Hemoglobin A1c/Hemoglobin.total in Blood HBA1C [facility] Start: 02-14-2023 Covid-19 Vaccine () Covid-19 Vaccine () [facility] Start: 02-14-2023 Influenza vaccination [facility] Start: 02-02-2023 ANNUAL PCP TEAM CHRONIC DISEASE VISIT ANNUAL PCP TEAM CHRONIC DISEASE VISIT [facility] Start: 02-02-2023 BP CONTROLLED (<130/80) BP CONTROLLED (<130/80) [facility] Start: 02-02-2023 COVID-19 VACCINE (3 - Booster for Moderna series) COVID-19 VACCINE (3 - Booster for Moderna series) [facility] Comment on above: Postponed from 09/19/2021 (Declined at t his time) Postponed from 06/16 (Declined at this time) Start: 02-02-2023 COVID-19 VACCINE (3 - Moderna series) COVID-19 VACCINE (3 - Moderna series) [facility] Comment on above: Postponed from 06/16/2021 (Declined at t his time) Start: 02-02-2023 HEPATITIS B (1 of 3 - 3-dose series) HEPATITIS B (1 of 3 - 3-dose series) [facility] Comment on above: Postponed from 1969 (Declined at t his time) Start: 01-27-2023 Hemoglobin A1c/Hemoglobin.total in Blood HBA1C [facility] Start: 01-26-2023 Hepatitis B surface antibody level LDL CHOLESTEROL [facility] Start: 12-09-2022 Adult depression screening assessment DEPRESSION SCREENING [facility] Start: 12-07-2022 BP CONTROLLED (<130/80) BP CONTROLLED (<130/80) [facility] Start: 12-05-2022 ANNUAL PCP TEAM CHRONIC DISEASE VISIT ANNUAL PCP TEAM CHRONIC DISEASE VISIT [facility] Start: 11-30-2022 End: 01-30-2023 Hemoglobin A1c in Blood HGB A1C Lab Routine Diabetes mellitus type II (HCC) Expected: 11/30/2022, Expires: 01/30/2023 [facility] Work Phone: Comment on above: Expected: 11/30/2022, Expires: Start: 10-01-2022 Adult depression screening assessment DEPRESSION SCREENING [facility] Start: 09-30-2022 End: 11-30-2022 TOX SCREEN ROUT UR TOX SCREEN ROUT UR Lab Routine 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 Restless legs syndrome (RLS) Expected: 09/30/2022, Expires: 11/30/2022 [facility] Work Phone: Comment on above: Expected: 09/30/2022, Expires: 3 Start: 08-14-2022 End: 10-14-2022 25-hydroxyvitamin D3 [Mass/volume] in Serum or Plasma VITAMIN D 25 HYDROXY Lab Routine Vitamin D deficiency Expected: 08/14/2022, Expires: 10/14/2022 [facility] Work Phone: Comment on above: Expected: 08/14/2022, Expires: 3 Start: 08-14-2022 End: 10-14-2022 TESTOSTERONE, FREE AND TOTAL TESTOSTERONE, FREE AND TOTAL Lab Routine Hypogonadism in male Expected: 08/14/2022, Expires: 10/14/2022 [facility] Work Phone: Comment on above: Expected: 08/14/2022, Expires: 3 Start: 08-02-2022 End: 10-02-2022 TOXICOLOGY SCRN W/CONF,URINE TOXICOLOGY SCRN W/CONF,URINE Lab Routine Restless legs syndrome (RLS) Chronic use of opiate for therapeutic purpose Expected: 08/02/2022, Expires: 10/02/2022 [facility] Work Phone: Comment on above: Expected: 08/02/2022, Expires: 3 Start: 07-30-2022 End: 09-29-2022 25-hydroxyvitamin D3 [Mass/volume] in Serum or Plasma [facility] Work Phone: Comment on above: Expected: 07/30/2022, Expires: 3 Start: 07-30-2022 End: 09-29-2022 Hemoglobin A1c in Blood [facility] Work Phone: Comment on above: Expected: 07/30/2022, Expires: 3 Start: 07-30-2022 End: 09-29-2022 TESTOSTERONE, FREE AND TOTAL [facility] Work Phone: Comment on above: Expected: 07/30/2022, Expires: 3 Start: 07-03-2022 Adult depression screening assessment DEPRESSION SCREENING [facility] Start: 06-16-2022 DEPRESSION ASSESSMENT DEPRESSION ASSESSMENT [facility] Start: 05-27-2022 End: 07-27-2022 CBC W Auto Differential panel - Blood CBC + DIFF Lab Routine Elevated hemoglobin (HCC) Expected: 05/27/2022, Expires: 07/27/2022 [facility] Work Phone: Comment on above: Expected: 05/27/2022, Expires: 3 Start: 03-23-2022 ANNUAL PCP TEAM CHRONIC DISEASE VISIT ANNUAL PCP TEAM CHRONIC DISEASE VISIT [facility] Start: 03-19-2022 End: 05-19-2022 CBC W Auto Differential panel - Blood CBC + DIFF Lab Routine Elevated hemoglobin (HCC) Expected: 03/19/2022, Expires: 05/19/2022 [facility] Work Phone: Comment on above: Expected: 03/19/2022, Expires: 2 Start: 03-14-2022 PNEUMOCOCCAL (2 - PCV) PNEUMOCOCCAL (2 - PCV) [facility] Start: 02-14-2022 Influenza vaccination INFLUENZA (#1) [facility] Start: 02-02-2022 End: 04-04-2022 CBC W Auto Differential panel - Blood CBC + DIFF Lab Routine Erythrocytosis Expected: 02/02/2022, Expires: 04/04/2022 [facility] Work Phone: Comment on above: Expected: 02/02/2022, Expires: Start: 09-19-2021 COVID-19 VACCINE (3 - Booster for Moderna series) COVID-19 VACCINE (3 - Booster for Moderna series) [facility] Start: 06-16-2021 Covid-19 Vaccine (3 - Moderna series) Covid-19 Vaccine (3 - Moderna series) [facility] Start: 06-16-2021 DEPRESSION ASSESSMENT DEPRESSION ASSESSMENT [facility] Start: 02-17-2021 Colonoscopy COLONOSCOPY [facility] Start: 02-17-2021 COLORECTAL CANCER SCREENING COLORECTAL CANCER SCREENING [facility] Start: 02-17-2021 Screening for malignant neoplasm of colon [facility] Start: 2014 COLOGUARD (FIT-DNA) COLOGUARD (FIT-DNA) [facility] Start: [address] COLONOGRAPHY [facility] Start: 2014 FECAL OCCULT BLOOD FECAL OCCULT BLOOD [facility] Start: 2014 Screening for malignant neoplasm of colon [facility] Start: 2014 SIGMOIDOSCOPY SIGMOIDOSCOPY [facility] Start: 1988 Hepatitis B Vaccine (1 of 3 - 19+ 3-dose series) Hepatitis B Vaccine (1 of 3 - 19+ 3-dose series) [facility] Start: 12-05-1987 Anxiety Screening Anxiety Screening [facility] Start: 12-05-1987 BP CONTROLLED (<130/80) BP CONTROLLED (<130/80) [facility] in Start: 12-05-1987 Depression Screening Depression Screening [facility] Start: 12-05-1979 3 comp foot exam completed DIABETIC FOOT EXAM [facility] Start: 12-05-1979 Glaucoma screening Dilated Retinal Exam [facility] Start: 12-05-1979 Hepatitis B screening URINE ALBUMIN:CREATININE RATIO [facility] Start: 12-05-1979 Hepatitis C antibody, confirmatory test DILATED RETINAL EXAM [facility] Start: 1969 HEPATITIS B (1 of 3 - 3-dose series) HEPATITIS B (1 of 3 - 3-dose series) [facility] Start: 1969 Hepatitis B Vaccine (1 of 3 - 3-dose series) Hepatitis B Vaccine (1 of 3 - 3-dose series) [facility] End: 01-23-2025 CT Chest WO contrast CT CHEST WO IVCON Radiology Routine Lung nodules 1 Occurrences starting 12/25/2023 until 01/23/2025 [facility] Comment on above: 1 Occurrences starting 12/25/2023 until 01/23/2025 End: 04-02-2025 CT Chest WO contrast CT CHEST WO IVCON Radiology Routine Lung nodules 1 Occurrences starting 03/03/2024 until 04/02/2025 [facility] Work Phone: Comment on above: 1 Occurrences starting 03/03/2024 until 04/02/2025 End: 09-30-2025 CT Chest WO contrast CT CHEST WO IVCON Radiology Routine Lung nodules 1 Occurrences starting 08/31/2024 until 09/30/2025 [facility] Work Phone: Comment on above: 1 Occurrences starting 08/31/2024 until 09/30/2025 DISE DYN EVAL SLEEP DISORDERED BREATHING FLX DX DISE DYN EVAL SLEEP DISORDERED BREATHING FLX DX JOSÉ MIGUEL (obstructive sleep apnea) FV OR ECG COMPLETE ECG COMPLETE ECG Routine Nausea Diaphoresis Ordered: 11/25/2023 [facility] Work Phone: Comment on above: Ordered: 11/25/2023 End: 11-24-2024 Echocardiography ECHO Cardiology ASHLEY Nausea Diaphoresis 1 Occurrences starting 11/25/2023 until 11/24/2024 [facility] Comment on above: 1 Occurrences starting 11/25/2023 until 11/24/2024 End: 11-24-2024 EXERCISE STRESS ECG (WITHOUT IMAGING) EXERCISE STRESS ECG (WITHOUT IMAGING) Cardiology ASHLEY Nausea Diaphoresis 1 Occurrences starting 11/25/2023 until 11/24/2024 [facility] Comment on above: 1 Occurrences starting 11/25/2023 until 11/24/2024 Hemoglobin.gastroint est inal.lower [Presence] in Stool by Immunoassay FECAL OCCULT BLOOD TEST Lab Routine Encounter for screening fecal occult blood testing Ordered: 08/29/2023 [facility] Work Phone: Comment on above: Ordered: 08/29/2023 Hemoglobin.gastroint est inal.lower [Presence] in Stool by Immunoassay IMMUNOCHEMICAL FECAL OCCULT BLOOD TEST Lab Routine Encounter for screening fecal occult blood testing Controlled type 2 diabetes mellitus without complication, without long-term current use of insulin (HCC) Ordered: 08/31/2024 [facility] Comment on above: Ordered: 08/31/2024 End: 2024 HOME SLEEP APNEA TEST (HSAT) HOME SLEEP APNEA TEST (HSAT) Procedures Routine JOSÉ MIGUEL on CPAP 1 Occurrences starting 12/05/2023 until 2024 [facility] Work Phone: Comment on above: 1 Occurrences starting 12/05/2023 until 2024 End: 04-15-2025 PAP TITRATION PSG (CPAP, BIPAP, ASV) PAP TITRATION PSG (CPAP, BIPAP, ASV) Procedures Routine Obstructive sleep apnea 1 Occurrences starting 03/16/2024 until 04/15/2025 [facility] Work Phone: Comment on above: 1 Occurrences starting 03/16/2024 until 04/15/2025 End: 12-16-2024 Polysomnogram POLYSOMNOGRAM (PSG) Procedures Routine Obstructive sleep apnea 1 Occurrences starting 12/17/2023 until 12/16/2024 [facility] Work Phone: Comment on above: 1 Occurrences starting 12/17/2023 until 12/16/2024 End: 04-02-2024 US HEAD/NECK SOFT TISSUE OTHER US HEAD/NECK SOFT TISSUE OTHER Radiology Routine Lump of skin of back 1 Occurrences starting 03/04/2023 until 04/02/2024 [facility] Work Phone: Comment on above: 1 Occurrences starting 03/04/2023 until 04/02/2024 End: 12-24-2024 XR Chest PA and Lateral XR CHEST 2V FRONTAL/LAT Radiology Routine Nausea Diaphoresis 1 Occurrences starting 11/25/2023 until 12/24/2024 [facility] Comment on above: 1 Occurrences starting 11/25/2023 until 12/24/2024 End: 04-01-2026 XR Lumbar spine 3 Views XR LUMBAR GENERAL 3V AP/LAT/L5-S1 Radiology Routine Bilateral hip pain Pain in both lower extremities 1 Occurrences starting 03/02/2025 until 04/01/2026 [facility] Work Phone: Comment on above: 1 Occurrences starting 03/02/2025 until 04/01/2026 XR Lumbar spine 3 Views XR LUMBA R GENERAL 3V AP/LAT/L5-S1 Radiology Routine Bilateral hip pain Pain in both lower extremities 03/02/2025 12:01 PM EDT [facility] Immunizations Immunization Date Immunization Notes Care Provider [facility] 03-02-2025 influenza, seasonal, injectable, preservative free Chayo Hickey MD Work Phone: [facility] 03-02-2024 influenza, seasonal, injectable Genesis Payanlogneisha BURIAL VAULT MAKER.STOGY ROLLER Work Phone: [facility] 03-02-2024 influenza virus vaccine, unspecified formulation Genesis Pyaanlogar BURIAL VAULT MAKER.STOGY ROLLER Work Phone: [facility] 03-04-2023 influenza, injectabl e, quadrivalent, contains preservative Genesis Podlogar BURIAL VAULT MAKER.STOGY ROLLER Work Phone: [facility] 03-04-2023 influenza virus vaccine, unspecified formulation Jaden Man DO Work Phone: [facility] 11-08-2022 pneumococcal (PCV20) vaccine, 20 valent (PREVNAR 20) Chayo Hickey MD Work Phone: [facility] 03-16-2021 influenza virus vaccine, unspecified formulation Chayo Hickey MD Work Phone: [facility] Work Phone: 03-14-2021 influenza, injectabl e, quadrivalent, preservative free Chayo Hickey MD Work Phone: [facility] Work Phone: 03-14-2021 pneumococcal polysaccharide vaccine, 23 valent Chayo Hickey MD Work Phone: [facility] Work Phone: 08-11-2020 zoster vaccine recombinant Carlton Horn MD Work Phone: [facility] 05-06-2020 Influenza, injectabl e, Madin [place] Canine Kidney, preservative free, quadrivalent Chayo Hickey MD Work Phone: [facility] Work Phone: 03-10-2020 tetanus toxoid, redu saúl diphtheria toxoid, and acellular pertussis vaccine, adsorbed Carlton Horn MD Work Phone: [facility] Work Phone: 03-10-2020 zoster vaccine recombinant Carlton Horn MD Work Phone: [facility] Work Phone: 06-17-2019 influenza virus vaccine, unspecified formulation Chayo Hickey MD Work Phone: [facility] Work Phone: 03-12-2019 Influenza, injectabl e, Madin Araseli Canine Kidney, preservative free, quadrivalent Chayo Hickey MD Work Phone: [facility] Work Phone: 04-21-2018 influenza, injectabl e, quadrivalent, preservative free Chayo Hickey MD Work Phone: [facility] Work Phone: Payers Date Payer Category Payer Self-pay 2021 [facility] PPO OOS [id number] 2021 Unknown [employer] PPO OOS [id number] 2021-Present [phone] [address] [place] [id number] PPO [id number] 2021 Unknown [id number] 2016 Unknown [id number] Unknown [id number] Social History Date Type Detail Facility Start: 08-02-2019 End: 07-30-2022 Tobacco smoking status NHIS Never smoked tobacco [facility] Start: 08-02-2019 End: 07-30-2022 Tobacco use and exposure Smokeless tobacco non-user [facility] Start: 09-12-2021 End: 11-01-2024 Alcohol intake Current drinker of alcohol (finding) [facility] Start: 09-12-2021 End: 01-02-2023 Alcohol intake [facility] Start: 09-12-2021 End: 07-23-2022 History SDOH Alcohol Frequency 2 [facility] Start: 09-12-2021 End: 07-23-2022 History SDOH Alcohol Std Drinks 1 [facility] Start: 09-12-2021 End: 07-23-2022 History SDOH Social Connections Phone 5 [facility] Start: 09-12-2021 End: 07-23-2022 History SDOH Social Connections Living 3 [facility] Start: 09-12-2021 History SDOH Physical Activity MPS 6 [facility] Start: 08-01-2019 Education 15 [facility] Start: 1970 Sex Assigned At Male [facility] Start: 04-08-2020 End: 02-02-2022 Exposure to SARS-CoV-2 (event) Not sure [facility] Start: 09-22-2021 End: 10-02-2021 Exposure to SARS-CoV-2 (event) Unable to assess [facility] Work Phone: Start: 07-23-2022 End: 01-02-2023 Social connection and isolation panel [facility] Do you belong to any clubs or organizations such as latter day groups, unions, fraternal or athletic groups, or school groups? No [facility] Are you now , , , , never or living with a partner? [facility] How often to you hav e a drink containing alcohol? Monthly or less [facility] How many standard dr inks containing alcohol do you have on a typical day? 1 or 2 [facility] How often do you hav e 6 or more drinks on 1 occasion? Never [facility] How hard is it for y ou to pay for the very basics like food, housing, medical care, and heating Somewhat hard [facility] Start: 02-23-2018 Adult Depression Screening Assessment 1 [facility] Do you feel stress - tense, restless, nervous, or anxious, or unable to sleep at night because your mind is troubled all the time - these days [OSQ] To some extent [facility] (I/We) worried dot er (my/our) food would run out before (I/we) got money to buy more. Sometimes true [facility] In the past 12 month s, was there a time when you were not able to pay the mortgage or rent on time? Yes [facility] Start: 08-26-2019 Gender identity Identifies as male gender (finding) [facility] Start: 08-26-2019 Sexual orientation Heterosexual (finding) [facility] Do you feel stress - tense, restless, nervous, or anxious, or unable to sleep at night because your mind is troubled all the time - these days [OSQ] Only a little [facility] The food that (I/we) bought just didn't last, and (I/we) didn't have money to get more. Never true [facility] How often to you hav e a drink containing alcohol? 2-3 time sa week [facility] Do you feel stress - tense, restless, nervous, or anxious, or unable to sleep at night because your mind is troubled all the time - these days [OSQ] Not at all [facility] How hard is it for y ou to pay for the very basics like food, housing, medical care, and heating Very hard [facility] Do you feel stress - tense, restless, nervous, or anxious, or unable to sleep at night because your mind is troubled all the time - these days [OSQ] Rather much [facility] Start: 11-18-2024 End: 03-02-2025 Alcoholic beverage intake Ex-drinker (finding) [facility] josue Medical Equipment Procedure Code Equipment Code Equipment Origin al Text Equipment Identifier Dates Screw Tenodesis 7mm Biocomposite 23mm Interference Sterile Acl - [id number] Start: 08-21-2021 [place] Biocom[employer] ite Corkscrew Ft 4.5mm Suture Needle [id number] Start: 08-21-2021 Test blood sugar (s) 1-2 times daily. Dx: Type 2 DM - Uncontrolled E11.65 Insulin: No [id number], [id number] Start: 03-05-2023 Comment on above: Test blood sugar(s) 1-2 times daily. Dx: Type 2 DM - Uncontrolled E11.65 Insulin: No Clinical Notes 05-08-2020 to 03-03-2025 Patient InstructionsChayo Hickey MD - 03/02/2025 10:56 AM EDTTelephone Encounter - Linda Lieberman LPN - 02/28/2025 5:33 PM Jaden Jerez DO - 12/08/2024 9:40 AM EDT Note Date & Type Note Facility 03-03-2025 Note HNO ID: [id number] Author: FRANK LAL APRN.STOGY ROLLER Service: ? Author Type: Nurse Practitioner Type: Progress Notes Filed: 03/03/2025 14:59 Note Text: [facility] Follow up/ Established patient visit Recording using ambient AI software for draft documentation of the visit was discussed with the patient/authorized customer response representative; all questions welcomed and answered. Patient/authorized customer response representative agreed to proceed Assessment/Plan from last visit: Date of last visit : 09/17/2024 IMPRESSION: Restless legs syndrome (rls) [facility] prescription opiate use Farley-ekbom syndrome (primary encounter diagnosis) PLAN: Thus, after reviewing the [facility] Electronic Medical Record and interviewing the patient either in person or virtually it is my professional opinion that the patient should continue the using the Positive Airway Pressure (PAP) device nightly at the current settings and should also continue the current medications at the current doses and times for the primary encounter diagnosis. The RLS is controlled. No AE. The risks, benefits and common adverse events were reviewed with the patient and they appear to understand. The patient may review the pharmacy drug information sheet and is welcome to review the entire product information sheet from the strategic marketing specialist. I would be happy to review any questions they have after review of that detailed FDA approved medical information. I, our STATISTICAL PROGRAMMER ANALYST and administrative staff will all continue to monitor the [place] Automated Rx Reporting System (OARRS) on a regular basis and document that it has been reviewed and that the patient is not obtaining controlled substances from another provider. Random drug screens may be given depending on the case. I would like for you to follow up with one of my collaborating Sleep Medicine Advance Practice Providers such as Vaishali Ojeda or BATSHEVA Harris n approximately 90 days. It was a pleasure visiting with you today in the [facility]. It is an honor and privilege to help you with your medical care. Remember to follow up with your other medical specialists and your primary care provider. If you have any further questions for me regarding the diagnosis or recommendations today, please do not hesitate to send us a [employer] message or call my collaborating Section Laborer nurse Ambrose RN, BSN at [phone] Extension #[phone]. I spent a total time of over 20 minutes on the date of the service on this case. This included preparing to see the patient by reviewing the medical record prior to examining the patient (known as Pre Charting), interviewing the patient face to face in the clinic or virtually via audio and video secure [facility] technology, ordering appropriate medications/tests/procedures, completing clinical documentation of the visit, counseling and educating the patient/family/caregiver, communicating with other health care providers as well as general care coordination. Jaden Man, DO, CBSM, ABSM CURRENT VISIT: 03/03/2025 The patient is a 54-year-old male with a history of RLS and JOSÉ MIGUEL, presenting with worsening RLS symptoms. He is here for his routine [id number] appt for methadone refill for RLS treatment. The patient reports a recent exacerbation of RLS symptoms, which have been well-controlled with methadone 7.5 mg nightly. No adverse effects. Usually only has sxs 2x per year on methadone. The patient notes that the symptoms worsened over the past week, coinciding with a break from his usual work schedule of 6 days a week, 12-13 hour days. He speculates that the change in routine may be contributing to the increased symptoms. The patient denies any changes in methadone dosage or other medications, except for the recent addition of naproxen for leg pain. He also reports taking up to 2000 mg of ibuprofen daily for pain management (until switched to naproxen). The patient describes the recent RLS episodes as severe, likening them to a panic attack. He notes that the symptoms were particularly bad on two consecutive nights and even prevented him from taking a nap. However, he reports that the symptoms were back to normal last night. The patient's has been providing sensory stimulation by lightly scratching his lower back, which he finds helpful in managing the symptoms. No hx of JULIANNA or low iron stores. The patient also reports experiencing vivid nightmares, which he attributes to stress and inconsistent use of his CPAP machine for JOSÉ MIGUEL. He admits to poor compliance with the CPAP, stating that he sleeps better without it but acknowledges waking up gasping for breath at times. He plans to reschedule his drug-induced sleep endoscopy (DISE) with Dr Riley for Claus kramer. He had to cancel the appt due to his needing surgery. He had a biPAP titration study earlier this yr (more content not included)... [facility] 03-02-2025 Note HNO ID: [id number] Author: JAE GILLESPIE RT(R) Service: ? Author Type: Certified Performance Technologist Type: Progress Notes Filed: 03/02/2025 11:49 Note Text: Radiology Service Progress Note PATIENT NAME: Nancy ECHAVARRIAN: [id number] DATE OF SERVICE: March 02, 2025 TIME: 11:49 AM PATIENT IDENTITY VERIFICATION COMPLETED USING TWO (2) IDENTIFIERS: Name and Date of confirmed by patient verbally. FALL SCREENING: Has the patient had 2 falls in the last year or 1 fall with injury or currently using an Ambulatory Assistive Device (Walker, Cane, Wheelchair, Crutches, etc.)? No PATIENT GENDER DATA: Assigned male at PATIENT RELEVANT IMPLANT DATA REVIEWED: Yes PATIENT PRESENTS WITH AN IMPLANTABLE OR ATTACHED METALLURGY TEACHER: No RADIOLOGY DEPARTMENT: General X-ray: Exam(s) Completed: Spine X-Ray(s): Lumbar AP / LAT / L5-S1 PERIPHERAL IV DATA: Not applicable SIGNED BY: RT Omar(R) March 02, 2025 11:49 AM [facility] 03-02-2025 Instructions Chayo Hickey MD - 03/02/2025 11:18 AM EDT - Obtain a lumbar spine X-ray to check for any narrowing in your lower back; schedule this as soon as possible. - Begin physical therapy focused as ordered on lower back mobility and strengthening; share any concerns they identify so we can consider an MRI if needed. - Start naproxen 500 mg twice daily for 2 weeks, then use as needed for pain; do not take it with ibuprofen or other NSAIDs. You may use Tylenol for additional relief. - Have blood drawn today for A1c and urine dxxfonm-[id number] ratio; we will call you with results. - Continue your regular diabetes medications and monitor for any low blood sugar episodes; if your A1c rises, we ll ask you to return in about 2 weeks. If it remains at goal, plan your next diabetes check in 3 months. - Return in about 2 months to review your leg/back pain and exercise progress. - Flu vaccine was administered today. - Go to the emergency department if you develop sudden severe pain (10/10), new leg weakness, numbness in your groin, or loss of bowel or bladder control. documented in this encounter [facility] 03-02-2025 Note HNO ID: [id number] Author: CHAYO HICKEY MD Service: ? Author Type: Physician Type: Progress Notes Filed: 03/02/2025 11:33 Note Text: Chief Complaint Patient presents with: 6 Month Exam Pain: Aching from waist down. Ongoing for a few months. Taking excessive amounts of Ibuprofen to keep pain under control. Has access to PT at his work and when he saw PT they noticed a lot of cracking and popping noises in his hips and knees. Recording using [employer] software for draft documentation of the visit was discussed with the patient/authorized customer response representative; all questions welcomed and answered. Patient/authorized customer response representative agreed to proceed HPI Nancy Enamorado is a 54 year old male who presents here today for Above Complaints. Annual Wellness Exam: - Steve Enamorado desires flu vaccination today. Diabetes Mellitus: - Steve's blood glucose levels consistently in the low 100s. - Steve experienced one episode of hypoglycemia with blood glucose in the 80s. - No recent A1c testing. Bilateral Hip and Leg Pain: - Onset a few months ago, described by Steve as a toothache sensation in the bones. - Pain is constant, rated 3/10 at rest and 6-7/10 with movement. - Pain localized to Steve's hips, knees, and lower legs; not specific to one side or back of the leg. - Aggravated by getting up from a seated position, getting out of the car, and certain movements. - Alleviated somewhat by movement but never completely resolves. - No known trauma or injury preceding the pain. - Steve denies lower back pain, numbness, tingling, or weakness in the legs. - No loss of bowel or bladder control. - Steve denies numbness in the groin. - No pain in the neck or shoulders. - Steve denies pain in the calves or cramps when walking distances. - Steve denies joints appearing red, hot, or swollen. - Steve has tried ibuprofen and Aleve with minimal relief. - Steve has seen a chiropractor without improvement. - Steve has access to a physical therapist at work but has not engaged in formal physical therapy sessions. Past medical history, appointments, medications, allergies reviewed. Previous Medical History PAST MEDICAL HISTORY Diagnosis Date Achilles tendinosis of left lower extremity s/p repair BPH (benign prostatic hyperplasia) Diabetes mellitus type II (HCC) Erectile dysfunction Heel spur, left Hypertension Hypertriglyceridemia Hypogonadism in male Idiopathic neuropathy Lipoma of right shoulder 05/2023 JOSÉ MIGUEL (obstructive sleep apnea) 08/2020 RLS (restless legs syndrome) Dr Man Thrombosed hemorrhoids 11/2021 Vitamin D deficiency Previous Surgical History PAST SURGICAL HISTORY Procedure Laterality Date APPENDECTOMY ARTHROSCOPY KNEE DIAGNOSTIC W/WO SYNOVIAL BX SPX Left Arthroscopy, knee BX OF BREAST; INCISIONAL Right 06/12/[address] right posterior shoulder by Dr. Ball CHOLECYSTECTOMY HX HERNIA REPAIR HX Bilateral inguinal hernia, congenital NEUROPLASTY AND/TRANSPOS MEDIAN NRV CARPAL TUNNE Carpal tunnel decomp bilateral PAST SURGICAL HISTORY OF 07/30/2019 repair bone spur achilles left foot PAST SURGICAL HISTORY OF Left 08/21/2021 achilles tendon repair PAST SURGICAL HISTORY OF 12/05/2021 hemorrhoidectomy PAST SURGICAL HISTORY OF 06/12/2023 right shoulder lipoma removed SKIN BIOPSY HX TONSILLECTOMY HX TONSILLECTOMY PRIMARY/SECONDARY Tonsillectomy Family History FAMILY HISTORY Problem Relation Age of Onset COPD Mother Cancer Mother lung Heart disease Father Cancer Father lung, liver, kidney, colon Depression Father Anxiety disorder Father other (cancer) Father Psychiatry Brother Cancer Brother Multiple Sclerosis Daughter other (apraxia) Son Heart disease Maternal Grandmother Heart disease Maternal Grandfather Heart disease Paternal Grandmother Heart disease Paternal Grandfather Patient Allergies ALLERGIES Allergen Reactions Metformin Intolerance Muscle aches, increase stool Current Medications Current Outpatient Medications on File Prior to Visit Medication Sig atorvastatin (LIPITOR) 20 mg tablet Take 1 tablet by mouth daily at bedtime. For cholesterol. methadone (DOLOPHINE) 5 mg tablet Take 1.5 tablets by mouth every evening for 30 days. semaglutide (OZEMPIC) 1 mg/dose (4 mg/3 mL) pen Inject 1 mg subcutaneously one time a week. Tadalafil (CIALIS) 5 mg tablet Take 1 tablet by mouth once daily. buPROPion XL (WELLBUTRIN XL) 150 mg 24 hr tablet Take 1 tablet by mouth once daily. lisinopril-hydroCHLOROthiazide (ZESTORETIC) 20-12.5 mg per tablet Take 2 tablets by mouth once daily. testosterone cypionate (DEPO-TESTOSTERONE) 200 mg/mL injection Inject 1 mL intramuscularly every 2 weeks for 180 days. blood sugar diagnostic (BLOOD GLUCOSE TEST) test strip Test blood sugar(s) 1-2 times daily. Dx: Type 2 DM - Uncontrolled E11.65 Insulin: No Lancets lancets Test blood sugar(s) 1-2 times daily. Dx: Type 2 (more content not included)... [facility] 03-02-2025 History of Present illness Narrative Chief Complaint Patient presents with: 6 Month Exam Pain: Aching from waist down. Ongoing for a few months. Taking excessive amounts of Ibuprofen to keep pain under control. Has access to PT at his work and when he saw PT they noticed a lot of cracking and popping noises in his hips and knees. Recording using [employer] software for draft documentation of the visit was discussed with the patient/authorized customer response representative; all questions welcomed and answered. Patient/authorized customer response representative agreed to proceed HPI Nancy Enamorado is a 54 year old male who presents here today for Above Complaints. Annual Wellness Exam: - Steve Enamorado desires flu vaccination today. Diabetes Mellitus: - Steve's blood glucose levels consistently in the low 100s. - Steve experienced one episode of hypoglycemia with blood glucose in the 80s. - No recent A1c testing. Bilateral Hip and Leg Pain: - Onset a few months ago, described by Steve as a toothache sensation in the bones. - Pain is constant, rated 3/10 at rest and 6-7/10 with movement. - Pain localized to Steve's hips, knees, and lower legs; not specific to one side or back of the leg. - Aggravated by getting up from a seated position, getting out of the car, and certain movements. - Alleviated somewhat by movement but never completely resolves. - No known trauma or injury preceding the pain. - Steve denies lower back pain, numbness, tingling, or weakness in the legs. - No loss of bowel or bladder control. - Steve denies numbness in the groin. - No pain in the neck or shoulders. - Steve denies pain in the calves or cramps when walking distances. - Steve denies joints appearing red, hot, or swollen. - Steve has tried ibuprofen and Aleve with minimal relief. - Steve has seen a chiropractor without improvement. - Steve has access to a physical therapist at work but has not engaged in formal physical therapy sessions. Past medical history, appointments, medications, allergies reviewed. Previous Medical History PAST MEDICAL HISTORY Diagnosis Date Achilles tendinosis of left lower extremity s/p repair BPH (benign prostatic hyperplasia) Diabetes mellitus type II (HCC) Erectile dysfunction Heel spur, left Hypertension Hypertriglyceridemia Hypogonadism in male Idiopathic neuropathy Lipoma of right shoulder 05/2023 JOSÉ MIGUEL (obstructive sleep apnea) 08/2020 RLS (restless legs syndrome) Dr Man Thrombosed hemorrhoids 11/2021 Vitamin D deficiency Previous Surgical History PAST SURGICAL HISTORY Procedure Laterality Date APPENDECTOMY ARTHROSCOPY KNEE DIAGNOSTIC W/WO SYNOVIAL BX SPX Left Arthroscopy, knee BX OF BREAST; INCISIONAL Right 06/12/[address] right posterior shoulder by Dr. Ball CHOLECYSTECTOMY HX HERNIA REPAIR HX Bilateral inguinal hernia, congenital NEUROPLASTY &/TRANSPOS MEDIAN NRV CARPAL TUNNE Carpal tunnel decomp bilateral PAST SURGICAL HISTORY OF 07/30/2019 repair bone spur achilles left foot PAST SURGICAL HISTORY OF Left 08/21/2021 achilles tendon repair PAST SURGICAL HISTORY OF 12/05/2021 hemorrhoidectomy PAST SURGICAL HISTORY OF 06/12/2023 right shoulder lipoma removed SKIN BIOPSY HX TONSILLECTOMY HX TONSILLECTOMY PRIMARY/SECONDARY <AGE 12 Tonsillectomy Family History FAMILY HISTORY Problem Relation Age of Onset COPD Mother Cancer Mother lung Heart disease Father Cancer Father lung, liver, kidney, colon Depression Father Anxiety disorder Father other (cancer) Father Psychiatry Brother Cancer Brother Multiple Sclerosis Daughter other (apraxia) Son Heart disease Maternal Grandmother Heart disease Maternal Grandfather Heart disease Paternal Grandmother Heart disease Paternal Grandfather Patient Allergies ALLERGIES Allergen Reactions Metformin Intolerance Muscle aches, increase stool Current Medications Current Outpatient Medications on File Prior to Visit Medication Sig atorvastatin (LIPITOR) 20 mg tablet Take 1 tablet by mouth daily at bedtime. For cholesterol. methadone (DOLOPHINE) 5 mg tablet Take 1.5 tablets by mouth every evening for 30 days. semaglutide (OZEMPIC) 1 mg/dose (4 mg/3 mL) pen Inject 1 mg subcutaneously one time a week. Tadalafil (CIALIS) 5 mg tablet Take 1 tablet by mouth once daily. buPROPion XL (WELLBUTRIN XL) 150 mg 24 hr tablet Take 1 tablet by mouth once daily. lisinopril-hydroCHLOROthiazide (ZESTORETIC) 20-12.5 mg per tablet Take 2 tablets by mouth once daily. testosterone cypionate (DEPO-TESTOSTERONE) 200 mg/mL injection Inject 1 mL intramuscularly every 2 weeks for 180 days. blood sugar diagnostic (BLOOD GLUCOSE TEST) test strip Test blood sugar(s) 1-2 times daily. Dx: Type 2 DM - Uncontrolled E11.65 Insulin: No Lancets lancets Test blood sugar(s) 1-2 times daily. Dx: Type 2 DM - Uncontrolled E11.65 Insulin: No CPAP/BIPAP/OTHER Continue Auto CPAP with current settings of 8-15 cm H2O. Lifetime supplies for Auto CPAP, including patient preferred mask, head gear, heated tubing, humidity, filters, chin strap. Dx: Obstructive Sleep Apnea G47.33 DME: [employer] [facility] No current facility-administered medications on file prior to visit. Social History SOCIAL HISTORY[1] Review of Symptoms REVIEW OF SYSTEMS See HPI EXAM: BP 103/69 Pulse 79 Ht 182.9 cm (6') Wt 114.1 kg (251 lb 9.6 oz) BMI 34.12 kg/m General Appearance: Well appearing, alert, in no acute distress, well-hydrated, well nourished.. Skin: Skin color, texture, turgor normal, no suspicious rashes or lesions. Back:no pain to palpation of vertebrae, good flexion and extension, good range of motion, no muscle tenderness, reflexes are 2+ and symmetric, motor and sensory appear to be normal, negative SLR test, no evidence of scoliosis HIP: Location: Bilateral Redness: No. Warmth: No. Range of motion: WNL Tenderness over trochanteric bursa: No Pain with movement: No. Health Maintenance List Dilated Retinal Exam Never done Anxiety Screening Never done Hepatitis B Vaccine(1 of 3 - 19+ 3-dose series) Never done Influenza Vaccine(1) due on 02/14/2025 Urine Albumin:Creatinine Ratio due on 03/02/2025 HbA1C due on 03/07/2025 Diabetic Foot Exam due on 08/31/2025 Colorectal Cancer Screening due on 09/03/2025 LDL Cholesterol due on 09/04/2025 Annual PCP Team Chronic Disease Visit due on 03/02/2026 Prostate Cancer Screening Discussion due on 07/30/2027 DTaP,Tdap,Td Vaccine(2 - Td or Tdap) due on 03/10/2030 Hepatitis C Screening Completed HIV Screening Completed Shingrix Vaccine Completed Pneumococcal Vaccine: 50+ Completed Data reviewed Latest Ref Rng 09/03/2024 09/04/2024 11/02/2024 WBC 3.70 - 11.00 k/uL 14.61 (H) RBC 4.20 - 6.00 m/uL 5.20 Hemoglobin 13.0 - 17.0 g/dL 16.2 Hematocrit 39.0 - 51.0 % 45.2 MCV 80.0 - 100.0 fL 86.9 MCH 26.0 - 34.0 pg 31.2 MCHC 30.5 - 36.0 g/dL 35.8 RDW-CV 11.5 - 15.0 % 12.3 Platelet Count 150 - 400 k/uL 270 MPV 9.0 - 12.7 fL 8.5 (L) Neut% % 72.7 Abs Neut (ANC) 1.45 - 7.50 k/uL 10.62 (H) Lymph% % 20.3 Abs Lymph 1.00 - 4.00 k/uL 2.97 Moca% % 5.4 Abs Moca <0.87 k/uL 0.79 Eosin% % 0.2 Abs Eosin <0.46 k/uL 0.03 Baso% % 0.3 Abs Baso <0.11 k/uL 0.04 Immature Gran % % 1.1 IMMATURE GRANS (ABS) <0.10 k/uL 0.16 (H) NRBC /100 WBC 0.0 Absolute nRBC <0.01 k/uL <0.01 DTYPE Auto Protein, Total 6.3 - 8.0 g/dL 7.2 Albumin 3.9 - 4.9 g/dL 4.2 Calcium 8.5 - 10.2 mg/dL 9.3 Bilirubin, Total 0.2 - 1.3 mg/dL 0.8 Alkaline Phosphatase 38 - 113 U/L 82 AST 14 - 40 U/L 20 ALT 10 - 54 U/L 26 Glucose 74 - 99 mg/dL 129 (H) BUN 9 - 24 mg/dL 15 Creatinine 0.73 - 1.22 mg/dL 1.12 Sodium 136 - 144 mmol/L 137 Potassium 3.7 - 5.1 mmol/L 4.2 Chloride 98 - 107 mmol/L 99 CO2 22 - 30 mmol/L 27 Anion Gap 8 - 15 mmol/L 11 eGFR >=60 mL/min/1.73m 78 Cholesterol, Total <200 mg/dL 135 Triglyceride <150 mg/dL 256 (H) HDL Cholesterol >39 mg/dL 27 (L) Non HDL Cholesterol <130 mg/dL 108 Fasting Time hrs 12 VLDL Cholesterol <30 mg/dL 51 (H) TC:HDL Ratio <5.10 5.00 LDL Cholesterol, Calculated <100 mg/dL 57 LDL:HDL Ratio <2.54 2.11 Hemoglobin A1C 4.3 - 5.6 % 5.4 Estimated Average Glucose mg/dL 108 Occult Blood, Stool Negative Negative Legend: (H) High (L) Low 1. Bilateral hip pain (M25.551) 2. Pain in both lower extremities (M79.604) - Chronic bilateral hip and lower extremity pain for several months, described as a deep, aching pain (3/10 at rest, 6-7/10 with movement); not relieved by ibuprofen or Aleve. - No history of trauma, no associated back pain, radicular symptoms, or neurogenic claudication; exam notable for tight hamstrings, otherwise normal. - Differential includes lumbar spinal stenosis, degenerative changes, and less likely inflammatory arthritis. - Ordered lumbar spine X-ray. - Start naproxen 500 mg PO BID for 2 weeks, then PRN; instructed to avoid concurrent ibuprofen or Aleve, but may use Tylenol as needed. - Refer to orthopedics for evaluation and back strengthening exercises. - Advised to report any severe pain (10/10), loss of bowel/bladder control, groin numbness, or leg weakness immediately. - Follow-up in 2 months. 3. Diabetes mellitus type II (HCC) (E11.9) - HbA1c has been in the low 100s; occasional hypoglycemia (80s) noted. - Order HbA1c and urine albumin/creatinine ratio. - Continue current diabetes medications. - Follow-up in 3 months to review lab results and discuss further management. 4. Encounter for immunization (Z23) - Administered influenza vaccine during visit. Chayo Hickey MD [1] Social History Tobacco Use Smoking status: Never Smokeless tobacco: Never Vaping Use Vaping status: Never Used Substance Use Topics Alcohol use: Not Currently Alcohol/week: 2.0 standard drinks of alcohol Types: 2 Cans of beer per week Drug use: Never documented in this encounter [facility] 02-28-2025 Telephone encounter Note Prescription Refill Information The patient has been identified by name and date of : Yes Caregiver verified no other encounters exist for this prescription request: Yes Caregiver confirmed with patient/requestor that no other refills are due, in the near future, with this provider at this time: Yes The last office visit in the department: 08/31/24 Does the patient have a future office visit with this provider/department: Yes 03/02/25 Requested Prescriptions Pending Prescriptions Disp Refills atorvastatin (LIPITOR) 20 mg tablet 90 tablet 1 Sig: Take 1 tablet by mouth daily at bedtime. For cholesterol. Linda Lieberman LPN February 28, 2025 5:34 PM [facility] 02-28-2025 Miscellaneous Notes Prescription Refill Information The patient has been identified by name and date of : Yes Caregiver verified no other encounters exist for this prescription request: Yes Caregiver confirmed with patient/requestor that no other refills are due, in the near future, with this provider at this time: Yes The last office visit in the department: 08/31/24 Does the patient have a future office visit with this provider/department: Yes 03/02/25 Requested Prescriptions Pending Prescriptions Disp Refills atorvastatin (LIPITOR) 20 mg tablet 90 tablet 1 Sig: Take 1 tablet by mouth daily at bedtime. For cholesterol. Linda Lieberman LPN February 28, 2025 5:34 PM documented in this encounter [facility] 02-18-2025 Telephone encounter Note CONTROLLED SUBSTANCE HPI Current medications: Methadone 5mg 1.5 tablets at bedtime Date of last refill: 01/19/2025 Patient has follow-up appointment schedule: Yes on 03/03/2025 Last note/visit: 12/08/2024 Last visit in-person: 09/17/2024 Last Visit with Physician: 12/08/2024 Reviewed note today: Yes OARRS: Yes, reviewed and No discrepancies I have personally reviewed the OARRS report for Nancy Cardenas Kelsae. I have considered the risks of abuse, dependence, addiction and diversion and I believe that it is clinically appropriate for Nancy Enamorado to be prescribed this medication. Is the patient prescribed a combination of benzodiazepine and opioid? No Medications listed on OARRS: Methadone & testosterone Controlled substance agreement: Date of the last agreement: last completed 2020 Date of last urine drug screen: 03/27/2024 Patient will be due a UDS before next visit for yearly UDS screen. Order placed. Okay for refill. [facility] 02-18-2025 Miscellaneous Notes CONTROLLED SUBSTANCE HPI Current medications: Methadone 5mg 1.5 tablets at bedtime Date of last refill: 01/19/2025 Patient has follow-up appointment schedule: Yes on 03/03/2025 Last note/visit: 12/08/2024 Last visit in-person: 09/17/2024 Last Visit with Physician: 12/08/2024 Reviewed note today: Yes OARRS: Yes, reviewed and No discrepancies I have personally reviewed the OARRS report for Nancy Enamorado. I have considered the risks of abuse, dependence, addiction and diversion and I believe that it is clinically appropriate for Nancy Enamorado to be prescribed this medication. Is the patient prescribed a combination of benzodiazepine and opioid? No Medications listed on OARRS: Methadone & testosterone Controlled substance agreement: Date of the last agreement: last completed 2020 Date of last urine drug screen: 03/27/2024 Patient will be due a UDS before next visit for yearly UDS screen. Order placed. Okay for refill. 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 The RLS is controlled. No AE. The risks, benefits and common adverse events were reviewed with the patient and they appear to understand. The patient may review the pharmacy drug information sheet and is welcome to review the entire product information sheet from the strategic marketing specialist. I would be happy to review any questions they have after review of that detailed FDA approved medical information. I, our STATISTICAL PROGRAMMER ANALYST and administrative staff will all continue to monitor the [place] Automated Rx Reporting System (OARRS) on a regular basis and document that it has been reviewed and that the patient is not obtaining controlled substances from another provider. Random drug screens may be given depending on the case. I would like for you to follow up with one of my collaborating Sleep Medicine Advance Practice Providers such as Vaishali Ojeda or BATSHEVA Harris n approximately 90 days. It was a pleasure visiting with you today in the [facility]. It is an honor and privilege to help you with your medical care. Remember to follow up with your other medical specialists and your primary care provider. If you have any further questions for me regarding the diagnosis or recommendations today, please do not hesitate to send us a [employer] message or call my collaborating Section Laborer nurse ANDREW Boggs, BSN at [phone] Extension #5. I spent a total time of over 20 minutes on the date of the service on this case. This included preparing to see the patient by reviewing the medical record prior to examining the patient (known as Pre Charting), interviewing the patient face to face in the clinic or virtually via audio and video secure [facility] technology, ordering appropriate medications/tests/procedures, completing clinical documentation of the visit, counseling and educating the patient/family/caregiver, communicating with other health care providers as well as general care coordination. 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 The RLS is controlled. No AE. The risks, benefits and common adverse events were reviewed with the patient and they appear to understand. The patient may review the pharmacy drug information sheet and is welcome to review the entire product information sheet from the strategic marketing specialist. I would be happy to review any questions they have after review of that detailed FDA approved medical information. I, our STATISTICAL PROGRAMMER ANALYST and administrative staff will all continue to monitor the [place] Automated Rx Reporting System (OARRS) on a regular basis and document that it has been reviewed and that the patient is not obtaining controlled substances from another provider. Random drug screens may be given depending on the case. I would like for you to follow up with one of my collaborating Sleep Medicine Advance Practice Providers such as Vaishali Lal or Kika Ojeda or BATSHEVA Harris n approximately 90 days. It was a pleasure visiting with you today in the [facility]. It is an honor and privilege to help you with your medical care. Remember to follow up with your other medical specialists and your primary care provider. If you have any further questions for me regarding the diagnosis or recommendations today, please do not hesitate to send us a [employer] message or call my collaborating Section Laborer nurse ANDREW Boggs, BSN at [phone] Extension #5. I spent a total time of over 20 minutes on the date of the service on this case. This included preparing to see the patient by reviewing the medical record prior to examining the patient (known as Pre Charting), interviewing the patient face to face in the clinic or virtually via audio and video secure [facility] technology, ordering appropriate medications/tests/procedures, completing clinical documentation of the visit, counseling and educating the patient/family/caregiver, communicating with other health care providers as well as general care coordination. Jaden Man DO, CBSM, ABSM Associate Cushion Maker, Sleep Medicine Fellowship [facility] Work Phone: 02-17-2025 Telephone encounter Note Prescription Refill Information The patient has been identified by name and date of : Yes Caregiver verified no other encounters exist for this prescription request: Yes Caregiver confirmed with patient/requestor that no other refills are due, in the near future, with this provider at this time: Yes The last office visit in the department: 08/31/2024 Does the patient have a future office visit with this provider/department: Yes Requested Prescriptions Pending Prescriptions Disp Refills semaglutide (OZEMPIC) 1 mg/dose (4 mg/3 mL) pen 3 each 1 Sig: Inject 1 mg subcutaneously one time a week. Angela Cespedes LPN February 17, 2025 8:18 AM [facility] 02-17-2025 Miscellaneous Notes Prescription Refill Information The patient has been identified by name and date of : Yes Caregiver verified no other encounters exist for this prescription request: Yes Caregiver confirmed with patient/requestor that no other refills are due, in the near future, with this provider at this time: Yes The last office visit in the department: 08/31/2024 Does the patient have a future office visit with this provider/department: Yes Requested Prescriptions Pending Prescriptions Disp Refills semaglutide (OZEMPIC) 1 mg/dose (4 mg/3 mL) pen 3 each 1 Sig: Inject 1 mg subcutaneously one time a week. Angela Cespedes LPN February 17, 2025 8:18 AM documented in this encounter [facility] 12-30-2024 Telephone encounter Note Prescription Refill Information The patient has been identified by name and date of : Yes Caregiver verified no other encounters exist for this prescription request: Yes Caregiver confirmed with patient/requestor that no other refills are due, in the near future, with this provider at this time: Yes The last office visit in the department: 08/26/24 Does the patient have a future office visit with this provider/department: Yes 03/02/25 Requested Prescriptions Pending Prescriptions Disp Refills Tadalafil (CIALIS) 5 mg tablet 90 tablet 1 Sig: Take 1 tablet by mouth once daily. Linda Lieberman LPN December 30, 2024 2:53 PM [facility] 12-30-2024 Miscellaneous Notes Prescription Refill Information The patient has been identified by name and date of : Yes Caregiver verified no other encounters exist for this prescription request: Yes Caregiver confirmed with patient/requestor that no other refills are due, in the near future, with this provider at this time: Yes The last office visit in the department: 08/26/24 Does the patient have a future office visit with this provider/department: Yes 03/02/25 Requested Prescriptions Pending Prescriptions Disp Refills Tadalafil (CIALIS) 5 mg tablet 90 tablet 1 Sig: Take 1 tablet by mouth once daily. Linda Lieberman LPN December 30, 2024 2:53 PM documented in this encounter [facility] 12-22-2024 Telephone encounter Note Prescription Refill Information The patient has been identified by name and date of : Yes Caregiver verified no other encounters exist for this prescription request: Yes Caregiver confirmed with patient/requestor that no other refills are due, in the near future, with this provider at this time: Yes The last office visit in the department: 08/31/2024 Does the patient have a future office visit with this provider/department: Yes Requested Prescriptions Pending Prescriptions Disp Refills semaglutide (OZEMPIC) 1 mg/dose (4 mg/3 mL) pen 3 each 1 Sig: Inject 1 mg subcutaneously one time a week. Angela Cespedes LPN December 22, 2024 4:27 PM [facility] 12-22-2024 Miscellaneous Notes Prescription Refill Information The patient has been identified by name and date of : Yes Caregiver verified no other encounters exist for this prescription request: Yes Caregiver confirmed with patient/requestor that no other refills are due, in the near future, with this provider at this time: Yes The last office visit in the department: 08/31/2024 Does the patient have a future office visit with this provider/department: Yes Requested Prescriptions Pending Prescriptions Disp Refills semaglutide (OZEMPIC) 1 mg/dose (4 mg/3 mL) pen 3 each 1 Sig: Inject 1 mg subcutaneously one time a week. Angela Cespedes LPN December 22, 2024 4:27 PM documented in this encounter [facility] 12-08-2024 Telephone encounter Note Spoke with pt gave information provided.Pt voices understanding. [facility] 12-08-2024 Miscellaneous Notes Spoke with pt gave information provided.Pt voices understanding. Looks like he was dispensed enough testosterone on 10/24/2024 to last for 3 months? Genesis Spencer APRN.STOGY ROLLER Prescription Refill Information The patient has been identified by name and date of : Yes Caregiver verified no other encounters exist for this prescription request: Yes Caregiver confirmed with patient/requestor that no other refills are due, in the near future, with this provider at this time: Yes The last office visit in the department: 08/31/24 Does the patient have a future office visit with this provider/department: Yes 03/02/25 Requested Prescriptions Pending Prescriptions Disp Refills testosterone cypionate (DEPO-TESTOSTERONE) 200 mg/mL injection 6 mL 1 Sig: Inject 1 mL intramuscularly every 2 weeks for 180 days. Linda Lieberman LPN December 08, 2024 4:35 PM documented in this encounter [facility] 12-08-2024 Telephone encounter Note Looks like he was dispensed enough testosterone on 10/24/2024 to last for 3 months? Genesis Spencer APRN.STOGY ROLLER [facility] 12-08-2024 Telephone encounter Note Prescription Refill Information The patient has been identified by name and date of : Yes Caregiver verified no other encounters exist for this prescription request: Yes Caregiver confirmed with patient/requestor that no other refills are due, in the near future, with this provider at this time: Yes The last office visit in the department: 08/31/24 Does the patient have a future office visit with this provider/department: Yes 03/02/25 Requested Prescriptions Pending Prescriptions Disp Refills testosterone cypionate (DEPO-TESTOSTERONE) 200 mg/mL injection 6 mL 1 Sig: Inject 1 mL intramuscularly every 2 weeks for 180 days. Linda Lieberman LPN December 08, 2024 4:35 PM [facility] 12-08-2024 History of Present illness Narrative Images from the original note were not included. [facility] Follow up/ Established patient visit Date of last visit : 12/05/2023 I have communicated my name and active licensure. The patient's identity and physical location were verified at the time of this visit. Either the patient or their legal customer response representative has been informed of the risks and benefits of -- and alternatives to -- treatment through a remote evaluation and consents to proceed with the evaluation remotely. NOTE: This medical visit is being completed virtually via secure [employer] technology provided by the [facility]. Consent related to this virtual visit being carried out was provided via [employer] as well as verbally. My findings and recommendations will be transmitted electronically via shared medical records to the consulting provider. I have communicated my name and active licensure. The patient's identity and physical location were verified at the time of this visit. Either the patient or their legal customer response representative has been informed of the risks and benefits of -- and alternatives to -- treatment through a remote evaluation and consents to proceed with the evaluation remotely. This patient presents today to the [facility] [place] or virtually for a Sleep Medicine appointment. The medical records available in our [facility] electronic medical record system have been reviewed and pertinent information related to this specific visit are included in this manually typed note. This information will be available to the referring health care provider as well as the patient in the [employer] EMR system. The patient returns today virtually for a scheduled medical visit in the [facility]. All pertinent information in the medical record for the interval between the last visit in the Sleep Disorders Center and today have been reviewed. The last clinical visit if applicable in the Sleep Disorders Center is attached below. 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 He was doing well on PAP therapy for management of JOSÉ MIGUEL until approximately a year ago, when he developed pressure intolerance for unknown reasons. He is having difficulty tolerating PAP therapy due to aerophagia and air hunger reports. He has tried turning off the ramp setting, and trying alternative masks without improvement. He is considering alternative treatment option of his JOSÉ MIGUEL with the hypoglossal nerve stimulator, and will consult ENT. I have discussed with him at last visit and again today, that he may be better tolerating of bilevel settings. He was unable to complete recommended PAP titration study due to family responsibilities, however he will schedule in near future. His RLS is very well-controlled on methadone 7.5 mg nightly. As long as he continues to take this medication he is not bothered by RLS symptoms. He denies drug side effect or adverse drug reaction. He denies drowsy driving. He is encouraged to obtain closer to 7 to 9 hours of sleep per night. All questions answered. PLAN: - Continue Auto CPAP as tolerated. - Due to increased difficulty tolerating CPAP settings, I recommend a PAP titration study with Bilevel settings. - Consult ENT for consideration of INSPIRE. - Remember to clean your mask and equipment regularly, as directed. - You should be eligible for new supplies approximately every 3-6 months, depending on your insurance coverage. Contact your [employer] company for new supplies as needed. - RLS well controlled with Methadone 7.5 mg in the evening. - Obtain annual utox - Follow up in 3 months or sooner if needed. Ganesh Ojeda APRN.STOGY ROLLER Here for follow up for RLS and JOSÉ MIGUEL Having difficulty tolerating APAP, feels like he is suffocating with PAP on. Takes mask off after a couple of hours. 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 He was hoping to be evaluated for hypoglossal nerve stimulation (Inspire) but his is very ill, she has been hospitalized frequently, has seizures in the night, he listens to make sure she is ok--so his sleep is really poor quality. He was evaluated by Dr Riley for Inspire, needed to get BMI less than 35 which he has done. He is scheduled on 10/01/24 for biPAP titration study RLS No sxs as long as he takes methadone 7.5 mg daily, usually takes it one hr before bedtime. Only about 2x per year his legs feel fidgety. Methadone 5 mg #45 last filled 08/24/24 PDMP website checked and validated. All prescriptions have been APPROPRIATELY filled. No suspicious activity was identified. 09/17/2024 by Frank Lal APRN.STOGY ROLLER SLEEP APNEA Sleep apnea type : JOSÉ MIGUEL, Most Recent Apnea-Hypopnea Index (AHI): 23.3, supine 34.2, REM AHI 56.0 Treatment : PAP therapy DME: Jacob PAP History: Uses CPAP for 4 hours per night, 7 nights per week. 57% of nights>=4 hrs in the past month. Current PAP settin-20 cm H2O. Difficulties with AutoPAP: Yes: see above Reviewed objective PAP compliance data: AHI 2.6, P95 9.2 cmH2O Mask type: nasal pillow interface Mask issues: none ------- SLEEP HYGIENE QUESTIONS: Bedtime : 10 pm at the latest, earlier if he needs to based on work schedule Time it takes to fall sleep : quick Wakes after a few hours because he can't tolerate the mask, feels like he can't get enough air, then can't fall back asleep if mask on, also hard to sleep again even w/o mask on Starts work anywhere from 3 to 6 AM Reason (s) why patient wakes up during the night : urination Estimated total sleep time ( in a 24 hour period of time) : he aims for 7 hrs but Naps : sometimes on weekends 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 07/20/2024 Sleep Questions Reason for visit: Restless Legs Syndrome Average hours of CPAP per night: 5 Percent of nights CPAP used at least 4 hours: 90 Accidents or near accidents due to drowsy drivin 11/28/2023 03/15/2024 07/20/2024 Sullivan Sleepiness Scale Score 7 (No clinically significant daytime sleepiness) 10 (No clinically significant daytime sleepiness) 10 (No clinically significant daytime sleepiness) 11/28/2023 03/10/2024 07/20/2024 PROMIS CAT Sleep Disturbance PROMIS Sleep Disturbance T-Score 53 (within normal limits) 47 (within normal limits) 52 (within normal limits) PROMIS Sleep Disturbance Percentile 38 62 42 12/09/2021 07/29/2022 02/28/2023 Insomnia Severity Index Score 19 14 12 11/28/2023 03/15/2024 07/20/2024 Restless Leg Syndrome Score 32 (Very severe symptoms) 4 (Mild Symptoms) 17 (Moderate symptoms) 03/15/2024 07/20/2024 08/25/2024 PHQ-9 Score 12 15 8 11/24/2023 02/25/2024 07/20/2024 PROMIS Global Health - (T-Scores - the mean of general population = 50. Five points is a clinically meaningful difference.) Physical T-Score 61.9 54.1 54.1 54.1 Mental T-Score 56 48.3 48.3 48.3 SLEEP RELATED ROS Review of Systems Constitutional: Positive for fatigue. Respiratory: Negative for difficulty breathing. Cardiovascular: Negative for chest pain and palpitations. Musculoskeletal: Decreased sensation on exam, feet go to sleep when walking Neurological: Negative for dizziness and headaches. ALLERGIES ALLERGIES Allergen Reactions Metformin Intolerance Muscle aches, increase stool CURRENT MEDICATIONS: CURRENT MEDICATIONS atorvastatin (LIPITOR) 20 mg tablet Take 1 tablet by mouth daily at bedtime. For cholesterol. semaglutide (OZEMPIC) 1 mg/dose (4 mg/3 mL) pen Inject 1 mg subcutaneously one time a week. Tadalafil (CIALIS) 5 mg tablet Take 1 tablet by mouth once daily. testosterone cypionate (DEPO-TESTOSTERONE) 200 mg/mL injection Inject 1 mL intramuscularly every 2 weeks for 180 days. lisinopril-hydroCHLOROthiazide (ZESTORETIC) 20-12.5 mg per tablet Take 2 tablets by mouth once daily. buPROPion XL (WELLBUTRIN XL) 150 mg 24 hr tablet Take 1 tablet by mouth once daily. blood sugar diagnostic (BLOOD GLUCOSE TEST) test strip Test blood sugar(s) 1-2 times daily. Dx: Type 2 DM - Uncontrolled E11.65 Insulin: No Lancets lancets Test blood sugar(s) 1-2 times daily. Dx: Type 2 DM - Uncontrolled E11.65 Insulin: No CPAP/BIPAP/OTHER Continue Auto CPAP with current settings of 8-15 cm H2O. Lifetime supplies for Auto CPAP, including patient preferred mask, head gear, heated tubing, humidity, filters, chin strap. Dx: Obstructive Sleep Apnea G47.33 DME: Jacob Conrad [START ON 11/24/2024] methadone (DOLOPHINE) 5 mg tablet Take 1.5 tablets by mouth every evening for 30 days. Patient should start on November 24, 2024. [START ON 10/24/2024] methadone (DOLOPHINE) 5 mg tablet Take 1.5 tablets by mouth every evening for 30 days. Patient should start on October 24, 2024. [START ON 09/23/2024] methadone (DOLOPHINE) 5 mg tablet Take 1.5 tablets by mouth every evening for 30 days. Patient should start on September 23, 2024. Latest Reference Range & Units 03/27/24 10:37 Amphetamines Negative Negative Barbiturates Negative Negative Benzodiazepines Urine Negative Negative Cocaine Urine Negative Negative Cannabinoids, Urine Negative Negative Ethanol, Urine <11 mg/dL <11 Opiates Negative Negative Phencyclidine Negative Negative Oxycodone, Urine Negative Negative PHYSICAL EXAMINATION: Vital Signs: BP 117/73 Pulse 84 Resp 18 Wt 114.8 kg (253 lb) SpO2 96% BMI 34.31 kg/m PHYSICAL EXAM: General appearance: pleasant, NAD Mental status: alert and oriented, able to provide own history Constitutional: overweight Skin: No visible rashes on exposed skin Neuro: No focal deficits observed, no tremors IMPRESSION/PLAN: Restless legs syndrome (rls) (primary encounter diagnosis) [facility] prescription opiate use Obstructive sleep apnea Neuropathy Nancy Enamorado is a 53 year old male with RLS which is well controlled with opiate, [employer] prescription opiate use, JOSÉ MIGUEL, difficulty tolerating PAP, small fiber peripheral neuropathy (diagnosed via skin bx in 2019), HTN, HLD, DM2, BPH, obesity PLAN: - try FFM to see if better tolerated; perhaps he can't breathe through his nose in REM sleep with increased nasal congestion and that causes him to wake up feeling like he is suffocating. Sample Patti FFM - continue APAP for now, we reviewed compliance download, AHI is normalized - has upcoming biPAP titration study - refill methadone 7.5 mg nightly effectively controls RLS, no adverse effects - up to date on UTOX 03/27/24 - needs updated letter re reason for methadone - he has upcoming follow up with Dr Man, can see me for virtual follow up 3 mos after that - he brought up the concern of progressive neuropathy, no sensation on recent monofilament exam, DM is controlled. I discussed with Dr Ahuja. In reviewing his chart in more detail he was diagnosed via skin bx with small fiber peripheral neuropathy. Frank Lal APRN.STOGY ROLLER I spent a total of 35 minutes on the date of the service which included preparing to see the patient, [id number] patient care, completing clinical documentation, obtaining and/or reviewing separately obtained history, counseling and educating the patient/family/caregiver, and ordering medications, tests, or procedures. Note Details Instructions Radiological Health Specialist Worksheet (Automatic SnapShot taken 09/17/2024), After Visit Summary (Automatic SnapShot taken 09/17/2024) Additional Documentation Vitals: BP 117/73 Pulse 84 Resp 18 Wt 114.8 kg (253 lb) SpO2 96% BMI 34.31 kg/m BSA 2.42 m Flowsheets: Patient-Reported Data, [facility] PDMP NARXCARE SCORES, AMB ROOMING INTAKE MINI, Vital Signs Encounter Info: Billing Info, History, Allergies, Detailed Report, Procedural Documentation Communications Letter sent to Mr. Steve Enamorado [facility] COMMMGR II (RICH TEXT) Pharmacy Benefits Open Encounter [facility] Covered: Retail, Mail Order Unknown: Specialty, Long-Term Care BIN: [id number] : 1970 Group ID: [id number] PCN: Legal sex: M Group name: [id number] Address: [address] [place] [address] Travel Screening and History Disease Screening Row Name 09/17/24 1428 09/11/24 1404 Has the Patient Had 2 Falls in the Last Year or 1 Fall with Injury or Currently Using an Ambulatory Assistive Device (Walker, Cane, Wheelchair, Crutches, etc.) No No Are you having pain associated with your visit today? 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 At the last visit FFM ordered. Methadone refilled 7.5mg po q hs. Everything is stable. just had another surgery but is healing. Pt has no symptoms on the medication for his RLS. 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 07/20/2024 Sleep Questions Reason for visit: Restless Legs Syndrome Average hours of CPAP per night: 5 Percent of nights CPAP used at least 4 hours: 90 Accidents or near accidents due to drowsy drivin 11/28/2023 03/15/2024 07/20/2024 Sullivan Sleepiness Scale Score 7 (No clinically significant daytime sleepiness) 10 (No clinically significant daytime sleepiness) 10 (No clinically significant daytime sleepiness) 11/28/2023 03/10/2024 07/20/2024 PROMIS CAT Sleep Disturbance PROMIS Sleep Disturbance T-Score 53 (within normal limits) 47 (within normal limits) 52 (within normal limits) PROMIS Sleep Disturbance Percentile 38 62 42 12/09/2021 07/29/2022 02/28/2023 Insomnia Severity Index Score 19 14 12 11/28/2023 03/15/2024 07/20/2024 Restless Leg Syndrome Score 32 (Very severe symptoms) 4 (Mild Symptoms) 17 (Moderate symptoms) 03/15/2024 07/20/2024 08/25/2024 PHQ-9 Score 12 15 8 02/25/2024 07/20/2024 10/25/2024 PROMIS Global Health - (T-Scores - the mean of general population = 50. Five points is a clinically meaningful difference.) Physical T-Score 54.1 54.1 54.1 54.1 Mental T-Score 48.3 48.3 48.3 48.3 PMH, PSH, SH: as before SLEEP RELATED ROS Review of Systems ALLERGIES Allergen Reactions Metformin Intolerance Muscle aches, increase stool CURRENT MEDICATIONS: cyclobenzaprine (FLEXERIL) 10 mg tablet Take 1 tablet by mouth three times a day as needed for muscle spasm. semaglutide (OZEMPIC) 1 mg/dose (4 mg/3 mL) pen Inject 1 mg subcutaneously one time a week. buPROPion XL (WELLBUTRIN XL) 150 mg 24 hr tablet Take 1 tablet by mouth once daily. lisinopril-hydroCHLOROthiazide (ZESTORETIC) 20-12.5 mg per tablet Take 2 tablets by mouth once daily. methadone (DOLOPHINE) 5 mg tablet Take 1.5 tablets by mouth every evening for 30 days. Patient should start on November 24, 2024. methadone (DOLOPHINE) 5 mg tablet Take 1.5 tablets by mouth every evening for 30 days. Patient should start on October 24, 2024. (Patient not taking: Reported on 11/02/2024) methadone (DOLOPHINE) 5 mg tablet Take 1.5 tablets by mouth every evening for 30 days. Patient should start on September 23, 2024. (Patient not taking: Reported on 11/02/2024) atorvastatin (LIPITOR) 20 mg tablet Take 1 tablet by mouth daily at bedtime. For cholesterol. Tadalafil (CIALIS) 5 mg tablet Take 1 tablet by mouth once daily. testosterone cypionate (DEPO-TESTOSTERONE) 200 mg/mL injection Inject 1 mL intramuscularly every 2 weeks for 180 days. blood sugar diagnostic (BLOOD GLUCOSE TEST) test strip Test blood sugar(s) 1-2 times daily. Dx: Type 2 DM - Uncontrolled E11.65 Insulin: No Lancets lancets Test blood sugar(s) 1-2 times daily. Dx: Type 2 DM - Uncontrolled E11.65 Insulin: No CPAP/BIPAP/OTHER Continue Auto CPAP with current settings of 8-15 cm H2O. Lifetime supplies for Auto CPAP, including patient preferred mask, head gear, heated tubing, humidity, filters, chin strap. Dx: Obstructive Sleep Apnea G47.33 DME: Jacob Conrad PHYSICAL EXAMINATION: Mental Status Examination: General: No acute distress Alertness: Alert Orientation: Oriented to person, place and time Eye contact: Good Mental attitude: Positive Historian: Good Constitutional: Pleasant and cooperative Speech Rate: Normal Speech Tone: Normal Speech Articulation: Normal Speech Spontaneity: Normal Bradyphrenia: None Loose Associations: None Thought Processes: Normal Tangential: No Circumstantial: No Abstraction: Seems normal Computation: Seems relatively normal Suicidal thoughts: None reported Homicidal thoughts: None Hallucinations (Auditory, visual, gustatory): None Delusions: None EPS: None AIM Scale: 0 Violent ideations: None Paranoid thoughts: None exhibited Guarded: No Obsessions: None Phobias: None Judgement: Good Insight: Good Fund of Knowledge: Intact Mood: Euthymic Affect: Reactive Physical Examination: Note that no supplement oxygen is in use No acute distress; consistent with age; the patient is not sleepy at the time of the appointment at 938am IMPRESSION: Restless legs syndrome (rls) [facility] prescription opiate use Farley-ekbom syndrome (primary encounter diagnosis) PLAN: Thus, after reviewing the [facility] Electronic Medical Record and interviewing the patient either in person or virtually it is my professional opinion that the patient should continue the using the Positive Airway Pressure (PAP) device nightly at the current settings and should also continue the current medications at the current doses and times for the primary encounter diagnosis. The RLS is controlled. No AE. The risks, benefits and common adverse events were reviewed with the patient and they appear to understand. The patient may review the pharmacy drug information sheet and is welcome to review the entire product information sheet from the strategic marketing specialist. I would be happy to review any questions they have after review of that detailed FDA approved medical information. I, our STATISTICAL PROGRAMMER ANALYST and administrative staff will all continue to monitor the [place] Automated Rx Reporting System (OARRS) on a regular basis and document that it has been reviewed and that the patient is not obtaining controlled substances from another provider. Random drug screens may be given depending on the case. I would like for you to follow up with one of my collaborating Sleep Medicine Advance Practice Providers such as Vaishali Ojeda or BATSHEVA Harris n approximately 90 days. It was a pleasure visiting with you today in the [facility] [place] [facility]. It is an honor and privilege to help you with your medical care. Remember to follow up with your other medical specialists and your primary care provider. If you have any further questions for me regarding the diagnosis or recommendations today, please do not hesitate to send us a [employer] message or call my collaborating Section Laborer nurse Ambrose, RN, BSN at [phone] Extension #5. I spent a total time of over 20 minutes on the date of the service on this case. This included preparing to see the patient by reviewing the medical record prior to examining the patient (known as Pre Charting), interviewing the patient face to face in the clinic or virtually via audio and video secure [facility] technology, ordering appropriate medications/tests/procedures, completing clinical documentation of the visit, counseling and educating the patient/family/caregiver, communicating with other health care providers as well as general care coordination. Jaden Man DO, CBSM, ABSM Associate Cushion Maker, Sleep Medicine Fellowship Surgical First Assistant, [facility] Core Faculty, [employer] Sleep Medicine Fellowship Chief Experience Officer, Sleep Medicine Center Clinical Staff Physician, Sleep Medicine [facility] [place] [facility] Department of Neurology Department of Psychiatry [address] Mail [address] [place], [place] [address] [place] documented in this encounter [facility] 12-08-2024 Note HNO ID: [id number] Author: JADEN MAN DO Service: ? Author Type: Physician Type: Progress Notes Filed: 12/08/2024 09:47 Note Text: [facility] Follow up/ Established patient visit Date of last visit : 12/05/2023 I have communicated my name and active licensure. The patient's identity and physical location were verified at the time of this visit. Either the patient or their legal customer response representative has been informed of the risks and benefits of -- and alternatives to -- treatment through a remote evaluation and consents to proceed with the evaluation remotely. NOTE: This medical visit is being completed virtually via secure [employer] technology provided by the [facility]. Consent related to this virtual visit being carried out was provided via [employer] as well as verbally. My findings and recommendations will be transmitted electronically via shared medical records to the consulting provider. I have communicated my name and active licensure. The patient's identity and physical location were verified at the time of this visit. Either the patient or their legal customer response representative has been informed of the risks and benefits of -- and alternatives to -- treatment through a remote evaluation and consents to proceed with the evaluation remotely. This patient presents today to the [facility] [place] or virtually for a Sleep Medicine appointment. The medical records available in our [facility] electronic medical record system have been reviewed and pertinent information related to this specific visit are included in this manually typed note. This information will be available to the referring health care provider as well as the patient in the [facility] [employer] system. The patient returns today virtually for a scheduled medical visit in the [facility] [place]. All pertinent information in the medical record for the interval between the last visit in the Sleep Disorders Center and today have been reviewed. The last clinical visit if applicable in the Sleep Disorders Center is attached below. 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 He was doing well on PAP therapy for management of JOSÉ MIGUEL until approximately a year ago, when he developed pressure intolerance for unknown reasons. He is having difficulty tolerating PAP therapy due to aerophagia and air hunger reports. He has tried turning off the ramp setting, and trying alternative masks without improvement. He is considering alternative treatment option of his JOSÉ MIGUEL with the hypoglossal nerve stimulator, and will consult ENT. I have discussed with him at last visit and again today, that he may be better tolerating of bilevel settings. He was unable to complete recommended PAP titration study due to family responsibilities, however he will schedule in near future. His RLS is very well-controlled on methadone 7.5 mg nightly. As long as he continues to take this medication he is not bothered by RLS symptoms. He denies drug side effect or adverse drug reaction. He denies drowsy driving. He is encouraged to obtain closer to 7 to 9 hours of sleep per night. All questions answered. PLAN: - Continue Auto CPAP as tolerated. - Due to increased difficulty tolerating CPAP settings, I recommend a PAP titration study with Bilevel settings. - Consult ENT for consideration of INSPIRE. - Remember to clean your mask and equipment regularly, as directed. - You should be eligible for new supplies approximately every 3-6 months, depending on your insurance coverage. Contact your Durable Medical Equipment (DME) company for new supplies as needed. - RLS well controlled with Methadone 7.5 mg in the evening. - Obtain annual utox - Follow up in 3 months or sooner if needed. Ganesh Ojeda APRN.STOGY ROLLER Here for follow up for RLS and JOSÉ MIGUEL Having difficulty tolerating APAP, feels like he is suffocating with PAP (more content not included)... [facility] 11-24-2024 Telephone encounter Note Images from the original note were not included. [facility] 11-24-2024 Miscellaneous Notes Images from the original note were not included. documented in this encounter [facility] 11-18-2024 Note HNO ID: [id number] Author: LARRY LYNCH MD Service: ? Author Type: Physician Type: Progress Notes Filed: 11/18/2024 17:22 Note Text: [facility] Subjective Nancy Enamorado is a 53 year old male. Patient presents with: Back Pain: Mid R side back pain x1 day, 10/30 for same, unsure of cause Patient presents with back pain. He was seen here on 10/30/2024 and treated with Medrol and Flexeril. He had mostly improved but pain flared up again the last 2 days without known trigger. Pain is in the mid lumbar back with a knot to the right. No radiation to the legs. Pain is worse with movement; better with rest and heat. He has been using Advil. Denies numbness, weakness, loss of bladder/bowel control, or fever. Back Pain Review of Systems Musculoskeletal: Positive for back pain. Objective BP 119/79 Pulse 72 Temp 36.6 ?C (97.8 ?F) Resp 18 Wt 114.1 kg (251 lb 8.7 oz) SpO2 97% BMI 34.12 kg/m? Physical Exam Constitutional: General: He is not in acute distress. Comments: Sits with reduced movement HENT: Mouth/Throat: Mouth: Mucous membranes are moist. Eyes: Extraocular Movements: Extraocular movements intact. Conjunctiva/sclera: Conjunctivae normal. Pupils: Pupils are equal, round, and reactive to light. Cardiovascular: Rate and Rhythm: Normal rate and regular rhythm. Pulmonary: Effort: Pulmonary effort is normal. Breath sounds: Normal breath sounds. Abdominal: Tenderness: There is right CVA tenderness. There is no left CVA tenderness. Musculoskeletal: Lumbar back: Spasms and tenderness present. No swelling or bony tenderness. Negative right straight leg raise test and negative left straight leg raise test. Neurological: Mental Status: He is alert. Gait: Gait normal. Deep Tendon Reflexes: Reflexes normal. {ASSESSMENT/PLAN: 1. Acute midline low back pain without sciatica - ICD9: 724.2, ICD10: M54.50 Treat with supportive care. Prefer continuing ibuprofen over steroid to avoid hyperglycemia. He may take 600 mg 3 times a day as needed. Refill muscle relaxer which had been helpful last month- CYCLOBENZAPRINE 10 MG TABLET He will use therapy available through work. Seek immediate evaluation for loss of bladder or bowel control, unexplained fever, or progressive weakness or numbness. Larry Lynch MD Differential Diagnoses - Musculoskeletal low back pain is more likely for the following reason(s): suggested by HANDP Procedures [facility] 11-18-2024 History of Present illness Narrative [facility] Subjective Nancy Enamorado is a 53 year old male. Patient presents with: Back Pain: Mid R side back pain x1 day, 10/30 for same, unsure of cause Patient presents with back pain. He was seen here on 10/30/2024 and treated with Medrol and Flexeril. He had mostly improved but pain flared up again the last 2 days without known trigger. Pain is in the mid lumbar back with a knot to the right. No radiation to the legs. Pain is worse with movement; better with rest and heat. He has been using Advil. Denies numbness, weakness, loss of bladder/bowel control, or fever. Back Pain Review of Systems Musculoskeletal: Positive for back pain. Objective BP 119/79 Pulse 72 Temp 36.6 C (97.8 F) Resp 18 Wt 114.1 kg (251 lb 8.7 oz) SpO2 97% BMI 34.12 kg/m Physical Exam Constitutional: General: He is not in acute distress. Comments: Sits with reduced movement HENT: Mouth/Throat: Mouth: Mucous membranes are moist. Eyes: Extraocular Movements: Extraocular movements intact. Conjunctiva/sclera: Conjunctivae normal. Pupils: Pupils are equal, round, and reactive to light. Cardiovascular: Rate and Rhythm: Normal rate and regular rhythm. Pulmonary: Effort: Pulmonary effort is normal. Breath sounds: Normal breath sounds. Abdominal: Tenderness: There is right CVA tenderness. There is no left CVA tenderness. Musculoskeletal: Lumbar back: Spasms and tenderness present. No swelling or bony tenderness. Negative right straight leg raise test and negative left straight leg raise test. Neurological: Mental Status: He is alert. Gait: Gait normal. Deep Tendon Reflexes: Reflexes normal. {ASSESSMENT/PLAN: 1. Acute midline low back pain without sciatica - ICD9: 724.2, ICD10: M54.50 Treat with supportive care. Prefer continuing ibuprofen over steroid to avoid hyperglycemia. He may take 600 mg 3 times a day as needed. Refill muscle relaxer which had been helpful last month- CYCLOBENZAPRINE 10 MG TABLET He will use therapy available through work. Seek immediate evaluation for loss of bladder or bowel control, unexplained fever, or progressive weakness or numbness. Larry Lynch MD Differential Diagnoses - Musculoskeletal low back pain is more likely for the following reason(s): suggested by H&P Procedures documented in this encounter [facility] 11-01-2024 Note HNO ID: [id number] Author: MICHELLE RILEY MD Service: ? Author Type: Physician Type: Progress Notes Filed: 11/01/2024 11:54 Note Text: IMPRESSION 53-year-old male with moderate obstructive sleep apnea. RECOMMENDATION/PLAN I discussed with him regarding his options which include CPAP, oral appliance, or possible inspire. After discussion, patient wishes to proceed with inspire evaluation. Therefore I recommend proceeding with drug-induced sleep endoscopy to determine his candidacy. Informed consent was obtained in the office today. We will get him scheduled for the procedure in the near future. Chief Complaint JOSÉ MIGUEL interested in inspire. History of Present Illness Nancy Enamorado is a 53 year old male with obstructive sleep apnea interested in inspire. Patient previous saw me in February 2023, at that time, patient's BMI was too high for implantation. Patient has subsequently lost weight. His BMI today is 34.83. Patient had a sleep study in February 2024 which showed moderate obstructive sleep apnea with AHI of 23.3. He did have some central apneic episodes but it is less than 25% of all respiratory events. Patient tried CPAP and is having difficulty tolerating it. He is interested in proceeding with inspire. PAST MEDICAL HISTORY Diagnosis Date Achilles tendinosis of left lower extremity s/p repair BPH (benign prostatic hyperplasia) Diabetes mellitus type II (HCC) Erectile dysfunction Heel spur, left Hypertension Hypertriglyceridemia Hypogonadism in male Idiopathic neuropathy Lipoma of right shoulder 05/2023 JOSÉ MIGUEL (obstructive sleep apnea) 08/2020 RLS (restless legs syndrome) Dr Man Thrombosed hemorrhoids 11/2021 Vitamin D deficiency PAST SURGICAL HISTORY Procedure Laterality Date APPENDECTOMY ARTHROSCOPY KNEE DIAGNOSTIC W/WO SYNOVIAL BX SPX Left Arthroscopy, knee BX OF BREAST; INCISIONAL Right 06/12/[address] right posterior shoulder by Dr[address] Ball CHOLECYSTECTOMY HX HERNIA REPAIR HX Bilateral inguinal hernia, congenital NEUROPLASTY AND/TRANSPOS MEDIAN NRV CARPAL TUNNE Carpal tunnel decomp bilateral PAST SURGICAL HISTORY OF 07/30/2019 repair bone spur achilles left foot PAST SURGICAL HISTORY OF Left 08/21/2021 achilles tendon repair PAST SURGICAL HISTORY OF 12/05/2021 hemorrhoidectomy PAST SURGICAL HISTORY OF 06/12/2023 right shoulder lipoma removed SKIN BIOPSY HX TONSILLECTOMY HX TONSILLECTOMY PRIMARY/SECONDARY Tonsillectomy FAMILY HISTORY Problem Relation Age of Onset COPD Mother Cancer Mother lung Heart disease Father Cancer Father lung, liver, kidney, colon Depression Father Anxiety disorder Father other (cancer) Father Psychiatry Brother Cancer Brother Multiple Sclerosis Daughter other (apraxia) Son Heart disease Maternal Grandmother Heart disease Maternal Grandfather Heart disease Paternal Grandmother Heart disease Paternal Grandfather CURRENT OUTPATIENT MEDICATIONS Current Outpatient Medications on File Prior to Visit Medication Sig methylPREDNISolone (MEDROL, LISSETH,) 4 mg Dose-Pack Follow dosing instructions, take with food. cyclobenzaprine (FLEXERIL) 10 mg tablet Take 1 tablet by mouth three times a day as needed for muscle spasm. semaglutide (OZEMPIC) 1 mg/dose (4 mg/3 mL) pen Inject 1 mg subcutaneously one time a week. buPROPion XL (WELLBUTRIN XL) 150 mg 24 hr tablet Take 1 tablet by mouth once daily. lisinopril-hydroCHLOROthiazide (ZESTORETIC) 20-12.5 mg per tablet Take 2 tablets by mouth once daily. [START ON 11/24/2024] methadone (DOLOPHINE) 5 mg tablet Take 1.5 tablets by mouth every evening for 30 days. Patient should start on November 24, 2024. methadone (DOLOPHINE) 5 mg tablet Take 1.5 tablets by mouth every evening for 30 days. Patient should start on October 24, 2024. atorvastatin (LIPITOR) 20 mg tablet Take 1 tablet by mouth daily at bedtime. For cholesterol. Tadalafil (CIALIS) 5 mg tablet Take 1 tablet by mouth once daily. testosterone cypionate (DEPO-TESTOSTERONE) 200 mg/mL injection Inject 1 mL intramuscularly every 2 weeks for 180 days. blood sugar diagnostic (BLOOD GLUCOSE TEST) test strip Test blood sugar(s) 1-2 times daily. Dx: Type 2 DM - Uncontrolled E11.65 Insulin: No Lancets lancets Test blood sugar(s) 1-2 times daily. Dx: Type 2 DM - Uncontrolled E11.65 Insulin: No CPAP/BIPAP/OTHER Continue Auto CPAP with current settings of 8-15 cm H2O. Lifetime supplies for Auto CPAP, including patient preferred mask, head gear, heated tubing, humidity, filters, chin strap. Dx: Obstructive Sleep Apnea G47.33 DME: Jacob _Soo methadone (DOLOPHINE) 5 mg tablet Take 1.5 tablets by mouth every evening for 30 days. Patient should start on September 23, 2024. No current facility-administered medications on file prior to visit. ALLERGIES ALLERGIES Allergen Reactions Metformin Intolerance Muscle aches, increase stool The remainder of the patient's h (more content not included)... [facility] 11-01-2024 History of Present illness Narrative IMPRESSION 53-year-old male with moderate obstructive sleep apnea. RECOMMENDATION/PLAN I discussed with him regarding his options which include CPAP, oral appliance, or possible inspire. After discussion, patient wishes to proceed with inspire evaluation. Therefore I recommend proceeding with drug-induced sleep endoscopy to determine his candidacy. Informed consent was obtained in the office today. We will get him scheduled for the procedure in the near future. Chief Complaint JOSÉ MIGUEL interested in inspire. History of Present Illness Nancy Enamorado is a 53 year old male with obstructive sleep apnea interested in inspire. Patient previous saw me in February 2023, at that time, patient's BMI was too high for implantation. Patient has subsequently lost weight. His BMI today is 34.83. Patient had a sleep study in February 2024 which showed moderate obstructive sleep apnea with AHI of 23.3. He did have some central apneic episodes but it is less than 25% of all respiratory events. Patient tried CPAP and is having difficulty tolerating it. He is interested in proceeding with inspire. PAST MEDICAL HISTORY Diagnosis Date Achilles tendinosis of left lower extremity s/p repair BPH (benign prostatic hyperplasia) Diabetes mellitus type II (HCC) Erectile dysfunction Heel spur, left Hypertension Hypertriglyceridemia Hypogonadism in male Idiopathic neuropathy Lipoma of right shoulder 05/2023 JOSÉ MIGUEL (obstructive sleep apnea) 08/2020 RLS (restless legs syndrome) Dr Man Thrombosed hemorrhoids 11/2021 Vitamin D deficiency PAST SURGICAL HISTORY Procedure Laterality Date APPENDECTOMY ARTHROSCOPY KNEE DIAGNOSTIC W/WO SYNOVIAL BX SPX Left Arthroscopy, knee BX OF BREAST; INCISIONAL Right 06/12/2023 right posterior shoulder by Dr. Ball CHOLECYSTECTOMY HX HERNIA REPAIR HX Bilateral inguinal hernia, congenital NEUROPLASTY &/TRANSPOS MEDIAN NRV CARPAL TUNNE Carpal tunnel decomp bilateral PAST SURGICAL HISTORY OF 07/30/2019 repair bone spur achilles left foot PAST SURGICAL HISTORY OF Left 08/21/2021 achilles tendon repair PAST SURGICAL HISTORY OF 12/05/2021 hemorrhoidectomy PAST SURGICAL HISTORY OF 06/12/2023 right shoulder lipoma removed SKIN BIOPSY HX TONSILLECTOMY HX TONSILLECTOMY PRIMARY/SECONDARY <AGE 12 Tonsillectomy FAMILY HISTORY Problem Relation Age of Onset COPD Mother Cancer Mother lung Heart disease Father Cancer Father lung, liver, kidney, colon Depression Father Anxiety disorder Father other (cancer) Father Psychiatry Brother Cancer Brother Multiple Sclerosis Daughter other (apraxia) Son Heart disease Maternal Grandmother Heart disease Maternal Grandfather Heart disease Paternal Grandmother Heart disease Paternal Grandfather CURRENT OUTPATIENT MEDICATIONS Current Outpatient Medications on File Prior to Visit Medication Sig methylPREDNISolone (MEDROL, LISSETH,) 4 mg Dose-Pack Follow dosing instructions, take with food. cyclobenzaprine (FLEXERIL) 10 mg tablet Take 1 tablet by mouth three times a day as needed for muscle spasm. semaglutide (OZEMPIC) 1 mg/dose (4 mg/3 mL) pen Inject 1 mg subcutaneously one time a week. buPROPion XL (WELLBUTRIN XL) 150 mg 24 hr tablet Take 1 tablet by mouth once daily. lisinopril-hydroCHLOROthiazide (ZESTORETIC) 20-12.5 mg per tablet Take 2 tablets by mouth once daily. [START ON 11/24/2024] methadone (DOLOPHINE) 5 mg tablet Take 1.5 tablets by mouth every evening for 30 days. Patient should start on November 24, 2024. methadone (DOLOPHINE) 5 mg tablet Take 1.5 tablets by mouth every evening for 30 days. Patient should start on October 24, 2024. atorvastatin (LIPITOR) 20 mg tablet Take 1 tablet by mouth daily at bedtime. For cholesterol. Tadalafil (CIALIS) 5 mg tablet Take 1 tablet by mouth once daily. testosterone cypionate (DEPO-TESTOSTERONE) 200 mg/mL injection Inject 1 mL intramuscularly every 2 weeks for 180 days. blood sugar diagnostic (BLOOD GLUCOSE TEST) test strip Test blood sugar(s) 1-2 times daily. Dx: Type 2 DM - Uncontrolled E11.65 Insulin: No Lancets lancets Test blood sugar(s) 1-2 times daily. Dx: Type 2 DM - Uncontrolled E11.65 Insulin: No CPAP/BIPAP/OTHER Continue Auto CPAP with current settings of 8-15 cm H2O. Lifetime supplies for Auto CPAP, including patient preferred mask, head gear, heated tubing, humidity, filters, chin strap. Dx: Obstructive Sleep Apnea G47.33 DME: Dasadrian _Soo methadone (DOLOPHINE) 5 mg tablet Take 1.5 tablets by mouth every evening for 30 days. Patient should start on September 23, 2024. No current facility-administered medications on file prior to visit. ALLERGIES ALLERGIES Allergen Reactions Metformin Intolerance Muscle aches, increase stool The remainder of the patient's history and review of systems is on the outpatient questionaire which was reviewed by me and placed in the outpatient chart. PHYSICAL EXAMINATION Appearance: General examination of the patient's external face, head and neck reveals no abnormalities. The patient is not retrognathic The patient's voice is strong and clear and they communicate easily. Throat: There were no lesions to visualization or palpation of the lips, cheeks, gums, floor of mouth, tongue, hard and soft palate, tonsillar pillars or posterior pharyngeal wall. The patient is a Prater Tongue Position 3 and has surgically absent tonsils. Michelle Riley MD Tobacco Use: Never Was smoking cessation packet given? N/A - Patient is a non-smoker or quit >1 year ago. Was a referral initiated?N/A Patient is a non-smoker documented in this encounter [facility] 11-01-2024 Instructions Michelle Riley MD - 11/01/2024 11:49 AM EDT Mandibular Advancement Device or Oral Appliance: An oral appliance is a custom-fit mouthguard that gently keeps the lower part of the jaw forward in order to open the back of your throat while you are sleeping. It is more effective for mild to moderate Obstructive Sleep Apnea. It is generally made and adjusted by a Sleep Dentist. A repeat a Home Sleep Study is usually performed after the oral appliance is optimally adjusted in order to evaluate its effectiveness. Below are details for dentists that have been approved by the [employer] [place] [employer] [place] [employer] for Oral Appliance for Obstructive Sleep Apnea in the [facility]. Jaimee Campbell [address] [place] [address] Professional Website: [email or web address] Pepe Pereira [address] [place] [address] Professional Website: [email or web address] Dandy Garcia [address] [place] [address] Professional Website: [email or web address] lenora Shell [address] [place] [address] Professional Website: [email or web address] Priti Horan [address] [place] [address] Professional Website: [email or web address] Solar/ Maira Oswald [facility] [address] [address] Professional Website: [email or web address]/ [facility] [address] [place] [address] [facility]/[place] [id number] Professional Website: [email or web address] Diaz Llanos [address] [place], [place] [address] Professional Ren Emerson [address] [place] [address] Professional Website: [email or web address] Keyanna Scherer [address] [place] [address] Professional Website: [email or web address] Textbook Time .com Carlton Shaikh [address] [place] [address] Professional Website: [email or web address]. lenora Person [address] [place] [address] Professional Website: [email or web address] Monserrat Cardoza [facility] [place] Monserrat Cardoza DDS [address] [place] [address] Professional Website: [email or web address] Caro Spragueohelvin [address] [place] [address] Professional Website: [email or web address] Intelligence Luis Baptisten [address] [place], [place] Professional Soha Mauricio [address] [address] Professional Website: [email or web address] Biosystems om documented in this encounter [facility] 11-01-2024 Note HNO ID: [id number] Author: URSZULA MOREIRA OCCA Service: ? Author Type: Bleach Analyst Type: Progress Notes Filed: 11/01/2024 11:54 Note Text: Tobacco Use: Never Was smoking cessation packet given? N/A - Patient is a non-smoker or quit >1 year ago. Was a referral initiated?N/A Patient is a non-smoker [facility] 10-30-2024 Instructions Priti Dockery APRN.STOGY ROLLER - 10/30/2024 9:12 AM EDT You will begin a 6-day course of Medrol Dosepak as prescribed (6 tablets on day 1, then tapering down over the next 5 days) to help reduce inflammation. Start taking the prescribed muscle relaxer to ease the muscle knot; be cautious as it may cause drowsiness and avoid driving if affected. Continue using ibuprofen as needed, but note that we are not increasing your dose beyond your current use at this time. Use ice or heat on your back--whichever you find more soothing--and perform gentle [id number] stretches as we practiced to help relieve the muscle pain. Your prescriptions will be sent to [facility]. If your pain does not improve, contact our office for a possible referral for further imaging or evaluation. Report immediately to ER for foot drop, bowel or bladder loss, numbness or tingling of legs/feet or any new or worsening concerns if unable to get into PMD documented in this encounter [facility] 10-30-2024 Note HNO ID: [id number] Author: PRITI DOCKERY APRN.MARTA Service: ? Author Type: Nurse Practitioner Type: Progress Notes Filed: 10/30/2024 09:29 Note Text: Subjective The history is provided by the patient. No language pathologist was used. HPI Nancy Enamorado is a 53 year old male who presents today for CC of right-sided back pain. Right-Sided Back Pain: - Onset a few weeks ago; denies known trauma or injury. - Denies recent heavy lifting or strenuous activity; minimal gardening. - Localized to the right side, worsened by movement and prolonged standing. - No radiation of pain to the legs, no bowel or bladder function problems. - Taking 1200 mg of ibuprofen daily with some relief. - Denies hematuria or dysuria. Diabetes: - Managed with Ozempic; unable to tolerate metformin. BP 121/77 (BP Site: Left Arm, BP Position: Sitting, BP Cuff Size: Large Adult) Pulse 79 Temp 36.2 ?C (97.1 ?F) (Temporal) Resp 12 Ht 182.9 cm (6') Wt 114.6 kg (252 lb 10.4 oz) SpO2 95% BMI 34.27 kg/m? Social History Tobacco Use Smoking status: Never Smokeless tobacco: Never Vaping Use Vaping status: Never Used Substance Use Topics Alcohol use: Yes Alcohol/week: 2.0 standard drinks of alcohol Types: 2 Cans of beer per week Drug use: Never PAST MEDICAL HISTORY Diagnosis Date Achilles tendinosis of left lower extremity s/p repair BPH (benign prostatic hyperplasia) Diabetes mellitus type II (HCC) Erectile dysfunction Heel spur, left Hypertension Hypertriglyceridemia Hypogonadism in male Idiopathic neuropathy Lipoma of right shoulder 05/2023 JOSÉ MIGUEL (obstructive sleep apnea) 08/2020 RLS (restless legs syndrome) Dr Man Thrombosed hemorrhoids 11/2021 Vitamin D deficiency I have confirmed and edited as necessary, the [facility] Review of Systems Constitutional: Negative for chills and fever. Musculoskeletal: Positive for back pain. Negative for joint pain and myalgias. Skin: Negative for itching and rash. All other systems reviewed and are negative. Objective Physical Exam Vitals and nursing note reviewed. Cardiovascular: Pulses: Popliteal pulses are 2+ on the right side and 2+ on the left side. Dorsalis pedis pulses are 2+ on the right side and 2+ on the left side. Posterior tibial pulses are 2+ on the right side and 2+ on the left side. Pulmonary: Effort: Pulmonary effort is normal. Musculoskeletal: Cervical back: Normal. Thoracic back: Spasms and tenderness present. No swelling, edema, deformity, signs of trauma or lacerations. Normal range of motion. No scoliosis. Lumbar back: Normal. Back: Comments: Pain worse with movement Skin: General: Skin is warm and dry. Neurological: Mental Status: He is alert and oriented to person, place, and time. Psychiatric: Mood and Affect: Affect normal. History and Record Review External record(s) reviewed: prior labs/imaging. Findings from review of prior labs/imaging: Previous Renal Function Panel Reviewed 11/26/2023: BUN 7 (L); Creatinine 1.07; Estimated Glomerular Filtration Rate 83 03/02/2024: BUN 8 (L); Creatinine 1.11; Estimated Glomerular Filtration Rate 79 09/04/2024: BUN 15; Creatinine 1.12; Estimated Glomerular Filtration Rate 78 Differential Diagnoses - muscle strain - back is more likely for the following reason(s): suggested by HANDP - kidney stone is less likely for the following reason(s): HANDP not suggestive Recording using [employer] software for draft documentation of the visit was discussed with the patient/authorized customer response representative; all questions welcomed and answered. Patient/authorized customer response representative agreed to proceed ASSESSMENT/PLAN: 1. Acute midline low back pain without sciatica - ICD9: 724.2, ICD10: M54.50 Medrol dose pack as ordered Flexeril prn Tylenol prn Follow up with pcp When to report to a higher level of care discussed. Diagnosis and treatment plan were discussed and questions were answered to the patient's satisfaction. Pt acknowledged understanding of concepts and follow up plan. Specific signs and symptoms that would indicate the need for higher level of care were discussed in detail warranting prompt ER evaluation. Priti Dockery APRN.[facility] 10-30-2024 History of Present illness Narrative Images from the original note were not included. Subjective The history is provided by the patient. No language pathologist was used. HPI Nancy Enamorado is a 53 year old male who presents today for CC of right-sided back pain. Right-Sided Back Pain: - Onset a few weeks ago; denies known trauma or injury. - Denies recent heavy lifting or strenuous activity; minimal gardening. - Localized to the right side, worsened by movement and prolonged standing. - No radiation of pain to the legs, no bowel or bladder function problems. - Taking 1200 mg of ibuprofen daily with some relief. - Denies hematuria or dysuria. Diabetes: - Managed with Ozempic; unable to tolerate metformin. BP 121/77 (BP Site: Left Arm, BP Position: Sitting, BP Cuff Size: Large Adult) Pulse 79 Temp 36.2 C (97.1 F) (Temporal) Resp 12 Ht 182.9 cm (6') Wt 114.6 kg (252 lb 10.4 oz) SpO2 95% BMI 34.27 kg/m Social History Tobacco Use Smoking status: Never Smokeless tobacco: Never Vaping Use Vaping status: Never Used Substance Use Topics Alcohol use: Yes Alcohol/week: 2.0 standard drinks of alcohol Types: 2 Cans of beer per week Drug use: Never PAST MEDICAL HISTORY Diagnosis Date Achilles tendinosis of left lower extremity s/p repair BPH (benign prostatic hyperplasia) Diabetes mellitus type II (HCC) Erectile dysfunction Heel spur, left Hypertension Hypertriglyceridemia Hypogonadism in male Idiopathic neuropathy Lipoma of right shoulder 05/2023 JOSÉ MIGUEL (obstructive sleep apnea) 08/2020 RLS (restless legs syndrome) Dr Man Thrombosed hemorrhoids 11/2021 Vitamin D deficiency I have confirmed and edited as necessary, the [facility] Review of Systems Constitutional: Negative for chills and fever. Musculoskeletal: Positive for back pain. Negative for joint pain and myalgias. Skin: Negative for itching and rash. All other systems reviewed and are negative. Objective Physical Exam Vitals and nursing note reviewed. Cardiovascular: Pulses: Popliteal pulses are 2+ on the right side and 2+ on the left side. Dorsalis pedis pulses are 2+ on the right side and 2+ on the left side. Posterior tibial pulses are 2+ on the right side and 2+ on the left side. Pulmonary: Effort: Pulmonary effort is normal. Musculoskeletal: Cervical back: Normal. Thoracic back: Spasms and tenderness present. No swelling, edema, deformity, signs of trauma or lacerations. Normal range of motion. No scoliosis. Lumbar back: Normal. Back: Comments: Pain worse with movement Skin: General: Skin is warm and dry. Neurological: Mental Status: He is alert and oriented to person, place, and time. Psychiatric: Mood and Affect: Affect normal. History and Record Review External record(s) reviewed: prior labs/imaging. Findings from review of prior labs/imaging: Previous Renal Function Panel Reviewed 11/26/2023: BUN 7 (L); Creatinine 1.07; Estimated Glomerular Filtration Rate 83 03/02/2024: BUN 8 (L); Creatinine 1.11; Estimated Glomerular Filtration Rate 79 09/04/2024: BUN 15; Creatinine 1.12; Estimated Glomerular Filtration Rate 78 Differential Diagnoses - muscle strain - back is more likely for the following reason(s): suggested by H&P - kidney stone is less likely for the following reason(s): H&P not suggestive Recording using [employer] software for draft documentation of the visit was discussed with the patient/authorized customer response representative; all questions welcomed and answered. Patient/authorized customer response representative agreed to proceed ASSESSMENT/PLAN: 1. Acute midline low back pain without sciatica - ICD9: 724.2, ICD10: M54.50 Medrol dose pack as ordered Flexeril prn Tylenol prn Follow up with pcp When to report to a higher level of care discussed. Diagnosis and treatment plan were discussed and questions were answered to the patient's satisfaction. Pt acknowledged understanding of concepts and follow up plan. Specific signs and symptoms that would indicate the need for higher level of care were discussed in detail warranting prompt ER evaluation. Priti Dockery APRN.[facility] documented in this encounter [facility] 10-28-2024 Telephone encounter Note The patient has been identified by name and date of : Yes Caregiver verified no other encounters exist for this prescription request: Yes Caregiver confirmed with patient/requestor that no other refills are due, in the near future, with this provider at this time: Yes The last office visit in the department: 08/31/2024 Does the patient have a future office visit with this provider/department: Yes 03/02/2025 Requested Prescriptions Pending Prescriptions Disp Refills semaglutide (OZEMPIC) 1 mg/dose (4 mg/3 mL) pen 3 each 1 Sig: Inject 1 mg subcutaneously one time a week. Jana Gonzalez RN October 28, 2024 6:01 PM [facility] 10-28-2024 Miscellaneous Notes The patient has been identified by name and date of : Yes Caregiver verified no other encounters exist for this prescription request: Yes Caregiver confirmed with patient/requestor that no other refills are due, in the near future, with this provider at this time: Yes The last office visit in the department: 08/31/2024 Does the patient have a future office visit with this provider/department: Yes 03/02/2025 Requested Prescriptions Pending Prescriptions Disp Refills semaglutide (OZEMPIC) 1 mg/dose (4 mg/3 mL) pen 3 each 1 Sig: Inject 1 mg subcutaneously one time a week. Jana Gonzalez RN October 28, 2024 6:01 PM documented in this encounter [facility] 10-06-2024 Note HNO ID: [id number] Author: GANESH OJEDA APRN.[facility] ROLLER Service: ? Author Type: Nurse Practitioner Type: Progress Notes Filed: 10/06/2024 14:50 Note Text: Consult ENT for HNS Ganesh Ojeda APRN.[facility] ROLLER [facility] 10-06-2024 Telephone encounter Note Images from the original note were not included. [facility] Work Phone: 10-06-2024 Miscellaneous Notes Images from the original note were not included. documented in this encounter [facility] 10-02-2024 Note HNO ID: [id number] Author: ?, ?, ? Service: ? Author Type: ? Type: Progress Notes Filed: 10/02/2024 03:37 Note Text: Sleep Study Check-In Documentation Date: October 02, 2024 Name: Nancy Enamorado Patient was accompanied by Self. Location: IC Latex allergy: No Tape allergy: No Current medications were reviewed with the patient:Yes Sleep aid taken by patient for the sleep study: Yes Name of sleep aid: Methadone Procedure was explained to the patient and all questions were answered. PAP treatment discussed and shown to patient: Yes If PAP used enter mask info: Mask Name Respironics Make Dreamwear MaskTypeNasal Mask SizeMedium Chin Sharp Used Yes Knowledge Program (KP): KP was not completed in epic by patient and accepted Study type: PAP titration Adverse Event: No (If yes create a new abstract) Comments: Patient was advised to follow up with their ordering provider regarding test results Raisa Estevesbro [facility] 10-02-2024 History of Present illness Narrative Sleep Study Check-In Documentation Date: October 02, 2024 Name: Nancy Enamorado Patient was accompanied by Self. Location: IC Latex allergy: No Tape allergy: No Current medications were reviewed with the patient:Yes Sleep aid taken by patient for the sleep study: Yes Name of sleep aid: Methadone Procedure was explained to the patient and all questions were answered. PAP treatment discussed and shown to patient: Yes If PAP used enter mask info: Mask Name Respironics Make Dreamwear MaskTypeNasal Mask SizeMedium Chin Sharp Used Yes Knowledge Program (KP): KP was not completed in epic by patient and accepted Study type: PAP titration Adverse Event: No (If yes create a new abstract) Comments: Patient was advised to follow up with their ordering provider regarding test results Raisa Disla documented in this encounter [facility] 09-17-2024 History of Present illness Narrative Images from the original note were not included. [facility] Follow up/ Established patient visit Date of last visit : 07/22/24 The following Impression/Plan was copied and pasted from the patient's last [facility] visit on 07/22/24: IMPRESSION/PLAN: Obstructive sleep apnea (primary encounter diagnosis) Restless legs syndrome (rls) [facility] prescription opiate use Chronic use of opiate for therapeutic purpose Type 2 diabetes mellitus without complication, without long-term current use of insulin (hcc) Obesity, class ii, bmi 35-39.9 This is a pleasant 53 yo male with a PMH of JOSÉ MIGUEL, SWD, 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 He was doing well on PAP therapy for management of JOSÉ MIGUEL until approximately a year ago, when he developed pressure intolerance for unknown reasons. He is having difficulty tolerating PAP therapy due to aerophagia and air hunger reports. He has tried turning off the ramp setting, and trying alternative masks without improvement. He is considering alternative treatment option of his JOSÉ MIGUEL with the hypoglossal nerve stimulator, and will consult ENT. I have discussed with him at last visit and again today, that he may be better tolerating of bilevel settings. He was unable to complete recommended PAP titration study due to family responsibilities, however he will schedule in near future. His RLS is very well-controlled on methadone 7.5 mg nightly. As long as he continues to take this medication he is not bothered by RLS symptoms. He denies drug side effect or adverse drug reaction. He denies drowsy driving. He is encouraged to obtain closer to 7 to 9 hours of sleep per night. All questions answered. PLAN: - Continue Auto CPAP as tolerated. - Due to increased difficulty tolerating CPAP settings, I recommend a PAP titration study with Bilevel settings. - Consult ENT for consideration of INSPIRE. - Remember to clean your mask and equipment regularly, as directed. - You should be eligible for new supplies approximately every 3-6 months, depending on your insurance coverage. Contact your Durable Medical Equipment (DME) company for new supplies as needed. - RLS well controlled with Methadone 7.5 mg in the evening. - Obtain annual utox - Follow up in 3 months or sooner if needed. Ganesh Ojeda APRN.[facility] ROLLER Here for follow up for RLS and JOSÉ MIGUEL Having difficulty tolerating APAP, feels like he is suffocating with PAP on. Takes mask off after a couple of hours. 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 He was hoping to be evaluated for hypoglossal nerve stimulation (Inspire) but his is very ill, she has been hospitalized frequently, has seizures in the night, he listens to make sure she is ok--so his sleep is really poor quality. He was evaluated by Dr Riley for Inspire, needed to get BMI less than 35 which he has done. He is scheduled on 10/01/24 for biPAP titration study RLS No sxs as long as he takes methadone 7.5 mg daily, usually takes it one hr before bedtime. Only about 2x per year his legs feel fidgety. Methadone 5 mg #45 last filled 08/24/24 PDMP website checked and validated. All prescriptions have been APPROPRIATELY filled. No suspicious activity was identified. 09/17/2024 by Frank Lal APRN.[facility] SLEEP APNEA Sleep apnea type : JOSÉ MIGUEL, Most Recent Apnea-Hypopnea Index (AHI): 23.3, supine 34.2, REM AHI 56.0 Treatment : PAP therapy DME: [facility] PAP History: Uses CPAP for 4 hours per night, 7 nights per week. 57% of nights>=4 hrs in the past month. Current PAP settin-20 cm H2O. Difficulties with AutoPAP: Yes: see above Reviewed objective PAP compliance data: AHI 2.6, P95 9.2 cmH2O Mask type: nasal pillow interface Mask issues: none ------- SLEEP HYGIENE QUESTIONS: Bedtime : 10 pm at the latest, earlier if he needs to based on work schedule Time it takes to fall sleep : quick Wakes after a few hours because he can't tolerate the mask, feels like he can't get enough air, then can't fall back asleep if mask on, also hard to sleep again even w/o mask on Starts work anywhere from 3 to 6 AM Reason (s) why patient wakes up during the night : urination Estimated total sleep time ( in a 24 hour period of time) : he aims for 7 hrs but Naps : sometimes on weekends 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 07/20/2024 Sleep Questions Reason for visit: Restless Legs Syndrome Average hours of CPAP per night: 5 Percent of nights CPAP used at least 4 hours: 90 Accidents or near accidents due to drowsy drivin 11/28/2023 03/15/2024 07/20/2024 Sullivan Sleepiness Scale Score 7 (No clinically significant daytime sleepiness) 10 (No clinically significant daytime sleepiness) 10 (No clinically significant daytime sleepiness) 11/28/2023 03/10/2024 07/20/2024 PROMIS CAT Sleep Disturbance PROMIS Sleep Disturbance T-Score 53 (within normal limits) 47 (within normal limits) 52 (within normal limits) PROMIS Sleep Disturbance Percentile 38 62 42 12/09/2021 07/29/2022 02/28/2023 Insomnia Severity Index Score 19 14 12 11/28/2023 03/15/2024 07/20/2024 Restless Leg Syndrome Score 32 (Very severe symptoms) 4 (Mild Symptoms) 17 (Moderate symptoms) 03/15/2024 07/20/2024 08/25/2024 PHQ-9 Score 12 15 8 11/24/2023 02/25/202407/20/2024 PROMIS Global Health - (T-Scores - the mean of general population = 50. Five points is a clinically meaningful difference.) Physical T-Score 61.9 54.1 54.1 54.1 Mental T-Score 56 48.3 48.3 48.3 SLEEP RELATED ROS Review of Systems Constitutional: Positive for fatigue. Respiratory: Negative for difficulty breathing. Cardiovascular: Negative for chest pain and palpitations. Musculoskeletal: Decreased sensation on exam, feet go to sleep when walking Neurological: Negative for dizziness and headaches. ALLERGIES Allergen Reactions Metformin Intolerance Muscle aches, increase stool CURRENT MEDICATIONS: atorvastatin (LIPITOR) 20 mg tablet Take 1 tablet by mouth daily at bedtime. For cholesterol. semaglutide (OZEMPIC) 1 mg/dose (4 mg/3 mL) pen Inject 1 mg subcutaneously one time a week. Tadalafil (CIALIS) 5 mg tablet Take 1 tablet by mouth once daily. testosterone cypionate (DEPO-TESTOSTERONE) 200 mg/mL injection Inject 1 mL intramuscularly every 2 weeks for 180 days. lisinopril-hydroCHLOROthiazide (ZESTORETIC) 20-12.5 mg per tablet Take 2 tablets by mouth once daily. buPROPion XL (WELLBUTRIN XL) 150 mg 24 hr tablet Take 1 tablet by mouth once daily. blood sugar diagnostic (BLOOD GLUCOSE TEST) test strip Test blood sugar(s) 1-2 times daily. Dx: Type 2 DM - Uncontrolled E11.65 Insulin: No Lancets lancets Test blood sugar(s) 1-2 times daily. Dx: Type 2 DM - Uncontrolled E11.65 Insulin: No CPAP/BIPAP/OTHER Continue Auto CPAP with current settings of 8-15 cm H2O. Lifetime supplies for Auto CPAP, including patient preferred mask, head gear, heated tubing, humidity, filters, chin strap. Dx: Obstructive Sleep Apnea G47.33 DME: [facility] [START ON 11/24/2024] methadone (DOLOPHINE) 5 mg tablet Take 1.5 tablets by mouth every evening for 30 days. Patient should start on November 24, 2024. [START ON 10/24/2024] methadone (DOLOPHINE) 5 mg tablet Take 1.5 tablets by mouth every evening for 30 days. Patient should start on October 24, 2024. [START ON 09/23/2024] methadone (DOLOPHINE) 5 mg tablet Take 1.5 tablets by mouth every evening for 30 days. Patient should start on September 23, 2024. Latest Reference Range & Units 03/27/24 10:37 Amphetamines Negative Negative Barbiturates Negative Negative Benzodiazepines Urine Negative Negative Cocaine Urine Negative Negative Cannabinoids, Urine Negative Negative Ethanol, Urine <11 mg/dL <11 Opiates Negative Negative Phencyclidine Negative Negative Oxycodone, Urine Negative Negative PHYSICAL EXAMINATION: Vital Signs: BP 117/73 Pulse 84 Resp 18 Wt 114.8 kg (253 lb) SpO2 96% BMI 34.31 kg/m PHYSICAL EXAM: General appearance: pleasant, NAD Mental status: alert and oriented, able to provide own history Constitutional: overweight Skin: No visible rashes on exposed skin Neuro: No focal deficits observed, no tremors IMPRESSION/PLAN: Restless legs syndrome (rls) (primary encounter diagnosis) [facility] prescription opiate use Obstructive sleep apnea Neuropathy Nancy Enamorado is a 53 year old male with RLS which is well controlled with opiate, correction prescription opiate use, JOSÉ MIGUEL, difficulty tolerating PAP, small fiber peripheral neuropathy (diagnosed via skin bx in 2019), HTN, HLD, DM2, BPH, obesity PLAN: - try FFM to see if better tolerated; perhaps he can't breathe through his nose in REM sleep with increased nasal congestion and that causes him to wake up feeling like he is suffocating. Sample Patti FFM - continue APAP for now, we reviewed compliance download, AHI is normalized - has upcoming biPAP titration study - refill methadone 7.5 mg nightly effectively controls RLS, no adverse effects - up to date on UTOX 03/27/24 - needs updated letter re reason for methadone - he has upcoming follow up with Dr Man, can see me for virtual follow up 3 mos after that - he brought up the concern of progressive neuropathy, no sensation on recent monofilament exam, DM is controlled. I discussed with Dr Ahuja. In reviewing his chart in more detail he was diagnosed via skin bx with small fiber peripheral neuropathy. Frank Lal APRN.STOGY ROLLER I spent a total of 35 minutes on the date of the service which included preparing to see the patient, [id number] patient care, completing clinical documentation, obtaining and/or reviewing separately obtained history, counseling and educating the patient/family/caregiver, and ordering medications, tests, or procedures. documented in this encounter [facility] 09-17-2024 Note HNO ID: [id number] Author: FRANK LAL APRN.[facility] Service: ? Author Type: Nurse Practitioner Type: Progress Notes Filed: 09/17/2024 16:41 Note Text: [facility] Follow up/ Established patient visit Date of last visit : 07/22/24 The following Impression/Plan was copied and pasted from the patient's last [facility] visit on 07/22/24: IMPRESSION/PLAN: Obstructive sleep apnea (primary encounter diagnosis) Restless legs syndrome (rls) [facility] prescription opiate use Chronic use of opiate for therapeutic purpose Type 2 diabetes mellitus without complication, without long-term current use of insulin (hcc) Obesity, class ii, bmi 35-39.9 This is a pleasant 53 yo male with a PMH of JOSÉ MIGUEL, SWD, 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 He was doing well on PAP therapy for management of JOSÉ MIGUEL until approximately a year ago, when he developed pressure intolerance for unknown reasons. He is having difficulty tolerating PAP therapy due to aerophagia and air hunger reports. He has tried turning off the ramp setting, and trying alternative masks without improvement. He is considering alternative treatment option of his JOSÉ MIGUEL with the hypoglossal nerve stimulator, and will consult ENT. I have discussed with him at last visit and again today, that he may be better tolerating of bilevel settings. He was unable to complete recommended PAP titration study due to family responsibilities, however he will schedule in near future. His RLS is very well-controlled on methadone 7.5 mg nightly. As long as he continues to take this medication he is not bothered by RLS symptoms. He denies drug side effect or adverse drug reaction. He denies drowsy driving. He is encouraged to obtain closer to 7 to 9 hours of sleep per night. All questions answered. PLAN: - Continue Auto CPAP as tolerated. - Due to increased difficulty tolerating CPAP settings, I recommend a PAP titration study with Bilevel settings. - Consult ENT for consideration of INSPIRE. - Remember to clean your mask and equipment regularly, as directed. - You should be eligible for new supplies approximately every 3-6 months, depending on your insurance coverage. Contact your Durable Medical Equipment (DME) company for new supplies as needed. - RLS well controlled with Methadone 7.5 mg in the evening. - Obtain annual utox - Follow up in 3 months or sooner if needed. Ganesh Ojeda APRN.STOG[facility] ROLLER Here for follow up for RLS and JOSÉ MIGUEL Having difficulty tolerating APAP, feels like he is suffocating with PAP on. Takes mask off after a couple of hours. 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 He was hoping to be evaluated for hypoglossal nerve stimulation ([facility]ire) but his is very ill, she has been hospitalized frequently, has seizures in the night, he listens to make sure she is ok--so his sleep is really poor quality. He was evaluated by Dr Riley for Inspire, needed to get BMI less than 35 which he has done. He is scheduled on 10/01/24 for biPAP titration study RLS No sxs as long as he takes methadone 7.5 mg daily, usually takes it one hr before bedtime. Only about 2x per year his legs feel fidgety. Methadone 5 mg #45 last filled 08/24/24 PDMP website checked and validated. All prescriptions have been APPROPRIATELY filled. No suspicious activity was identified. 09/17/2024 by Frank Lal APRN.[facility] Sleep apnea type : JOSÉ MIGUEL, Most Recent Apnea-Hypopnea Index (AHI): 23.3, supine 34.2, REM AHI 56.0 Treatment : PAP therapy DME: [facility] PAP History: Uses CPAP for 4 hours per night, 7 nights per week. 57% of nights>=4 hrs in the past month. Current PAP settin-20 cm H2O. Difficulties with AutoPAP: Yes: see above Reviewed objective PAP compliance data: AHI 2.6, P95 9.2 cmH2O Mask type: nasal pillow interface Mask issues: none SLEEP HYGIENE QUESTIONS: Bedtime : 10 pm at the latest, earlier if he needs to based on work schedule Time it takes to fall sleep : quick Wakes after a few hours because he can't tolerate the mask, feels like he can't get enough air, then can't fall back asleep if mask on, also hard to sleep again even w/o mask on Starts work anywhere from 3 to 6 AM Reason (s) why patient wakes up during the night : urination Estimated total sleep time ( in a 24 hour period of time) : he aims for 7 hrs but Naps : sometimes on weekends 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 07/20/2024 Sleep Questions Reason for visit: Restless Legs Syndrome Average hours of CPAP per night: 5 Percent of nights CPAP used at least 4 hours: 90 Accidents or near accidents due to drowsy drivin 11/28/2023 03/15/2024 07/20/2024 Sullivan Sleepiness Scale Score 7 (No cl (more content not included)... [facility] 09-06-2024 Telephone encounter Note Pt notified and verbalized understanding Melo Condon MA [facility] 09-06-2024 Miscellaneous Notes Pt notified and verbalized understanding Melo Condon MA Please let patient know his labs are stable and his cholesterol has improved. Please let patient know his fecal occult is negative for blood. documented in this encounter [facility] 09-06-2024 Telephone encounter Note Please let patient know his labs are stable and his cholesterol has improved. [facility] Work Phone: 09-06-2024 Telephone encounter Note Please let patient know his fecal occult is negative for blood. [facility] 08-31-2024 Instructions Raisa Han APRN.CNP - 08/31/2024 2:38 PM EDT It was nice seeing you today! Reason for your visit: Lung Nodule/s Your CT scan shows the nodules in the right lung are stable in size. We can recheck these again in [address] scan. Plan: Return to clinic 1 year Please call our office with any questions or concerns. To reach the office, please call: [phone] To make an appointment, please call pulmonary [phone] Thank you, Raisa Han APRN.CNP documented in this encounter [facility] 08-31-2024 Note HNO ID: [id number] Author: RAISA HAN APRN.CNP Service: ? Author Type: Nurse Practitioner Type: Progress Notes Filed: 09/01/2024 09:16 Note Text: [facility] INCIDENTAL LUNG NODULE PROGRAM (Follow Up) Impression / Recommendations Mr. Enamorado presents for follow up on lung nodules. CT chest completed today was reviewed with patient. All lung nodules appear to be stable in size and again appearance is consistently with likely granulomatous exposure. The patient is feeling well with no respiratory complaints. We will plan to continue to monitor nodules with CT surveillance. 1. Lung nodules - ICD9: 793.19, ICD10: R91.8 - Advised repeat CT chest in 12 months. - CT CHEST WO IVCON 2. Calcified granuloma of lung - ICD9: 518.89, ICD10: J98.4 - CT scan showing multiple calcified nodules. Again,discussed likely granulomatous exposure. - Continue to monitor as patient is not having any respiratory symptoms at this time. The patient is in agreement with the above plan. All questions were answered to her apparent satisfaction. Raisa Han APRN.STOGY ROLLER - History of Present Illness Nancy Enamorado is a 53 year old male with a pertinent past medical history significant for No history of tobacco abuse who is being seen as a follow up for evaluation of a lung nodule(s). Nancy Enamorado had a Ct chest on 12/05/23 for the indication of incidental lung nodule on CXR. >5 nodules were detected Incidentally. The nodule of greatest concern is a Solid 2 mm nodule with a Smooth border in the Right middle lobe of the lung. Prior imaging: (Yes What type of prior imaging? CT Scan Was the nodule of concern seen on prior imaging? Yes Has the nodule of concern remained stable? Stable) Respiratory symptoms include: SOB: No Chest tightness: No Coughing: No Hemoptysis: No Wheezing: No Fever/Chills: No Recent Respiratory Infection: No No night sweats Unintentional weight loss: No Last 6 Encounter Wt Readings: Date: Wt: 08/31/2024 115.1 kg (253 lb 12 oz) 06/22/2024 112.2 kg (247 lb 5.7 oz) 03/03/2024 111.2 kg (245 lb 2.4 oz) 03/02/2024 110.6 kg (243 lb 13.3 oz) 03/02/2024 111.2 kg (245 lb 2.4 oz) 12/25/2023 110.6 kg (243 lb 13.3 oz) Modified Medical Research [place] Dyspnea Scale (MMRC) I only get breathless with strenous exercise 0 Problem List, History, Medications and allergies have been reviewed from the [facility] electronic medical record and any appropriate up-dates have been made. Physical Exam Temp 36.1 ?C (97 ?F) (Temporal) Physical Exam Vitals and nursing note reviewed. Constitutional: Appearance: Normal appearance. HENT: Head: Normocephalic and atraumatic. Nose: Nose normal. No rhinorrhea. Eyes: Conjunctiva/sclera: Conjunctivae normal. Cardiovascular: Rate and Rhythm: Normal rate. Pulmonary: Effort: Pulmonary effort is normal. No respiratory distress. Skin: General: Skin is warm and dry. Neurological: General: No focal deficit present. Mental Status: He is alert and oriented to person, place, and time. Psychiatric: Mood and Affect: Mood and affect normal. Behavior: Behavior normal. Diagnostic Data I have personally visualized, reviewed and analyzed the findings on pulmonary function testing and radiographs. Last CT/CTA Chest/Lungs CT CHEST WO IVCON Exam End: 08/31/2024 1:34 PM (Final result) Narrative: * * *Final Report* * * DATE OF EXAM: Aug 31 2024 1:34PM [facility] [place] CHEST WO IVCON / PROCEDURE REASON: Lung nodules * * * * Physician Interpretation * * * * EXAMINATION: CHEST CT WITHOUT CONTRAST CLINICAL HISTORY: Lung nodule Technique: Spiral CT acquisition of the chest from the thoracic inlet to the upper abdomen without contrast. MQ: CTCWO_6 CT Radiation dose: Integrated Dose-length product (DLP) for this visit = 707 mGy*cm CT Dose Reduction Employed: Automated exposure control (AEC) Comparison: 03/03/2024, 12/05/2019 RESULT: Limitations: None. Lines, tubes, and devices: None. Lung parenchyma and airways: No consolidation. Unchanged cluster of numerous calcified nodules in right lower lobe. No suspicious pulmonary nodule. The central airways are patent. Pleural space: No pleural effusion. No pleural thickening. Lower neck, lymph nodes, and mediastinum: The imaged thyroid gland is normal. No lymphadenopathy in the supraclavicular, axillary, mediastinal, or hilar regions. Heart, pericardium, and thoracic vessels: The thoracic aorta and main pulmonary artery are normal in caliber. The cardiac chambers are normal in size. Mild coronary artery atherosclerotic calcifications are noted, although the study is not optimized for coronary assessment. No pericardial effusion or thickening. Bones and soft tissues: No destructive bone lesion. Chest wall is unremarkable. (more content not included)... [facility] 08-31-2024 History of Present illness Narrative Images from the original note were not included. [facility] INCIDENTAL LUNG NODULE PROGRAM (Follow Up) Impression / Recommendations Mr. Enamorado presents for follow up on lung nodules. CT chest completed today was reviewed with patient. All lung nodules appear to be stable in size and again appearance is consistently with likely granulomatous exposure. The patient is feeling well with no respiratory complaints. We will plan to continue to monitor nodules with CT surveillance. 1. Lung nodules - ICD9: 793.19, ICD10: R91.8 - Advised repeat CT chest in 12 months. - CT CHEST WO IVCON 2. Calcified granuloma of lung - ICD9: 518.89, ICD10: J98.4 - CT scan showing multiple calcified nodules. Again,discussed likely granulomatous exposure. - Continue to monitor as patient is not having any respiratory symptoms at this time. The patient is in agreement with the above plan. All questions were answered to her apparent satisfaction. Raisa Han APRN.STOGY ROLLER History of Present Illness Nancy Enamorado is a 53 year old male with a pertinent past medical history significant for No history of tobacco abuse who is being seen as a follow up for evaluation of a lung nodule(s). Nancy Enamorado had a Ct chest on 12/05/23 for the indication of incidental lung nodule on CXR. >5 nodules were detected Incidentally. The nodule of greatest concern is a Solid 2 mm nodule with a Smooth border in the Right middle lobe of the lung. Prior imaging: (Yes What type of prior imaging? CT Scan Was the nodule of concern seen on prior imaging? Yes Has the nodule of concern remained stable? Stable) Respiratory symptoms include: SOB: No Chest tightness: No Coughing: No Hemoptysis: No Wheezing: No Fever/Chills: No Recent Respiratory Infection: No No night sweats Unintentional weight loss: No Last 6 Encounter Wt Readings: Date: Wt: 08/31/2024 115.1 kg (253 lb 12 oz) 06/22/2024 112.2 kg (247 lb 5.7 oz) 03/03/2024 111.2 kg (245 lb 2.4 oz) 03/02/2024 110.6 kg (243 lb 13.3 oz) 03/02/2024 111.2 kg (245 lb 2.4 oz) 12/25/2023 110.6 kg (243 lb 13.3 oz) Modified Medical Research [place] Dyspnea Scale (MMRC) I only get breathless with strenous exercise 0 Problem List, History, Medications and allergies have been reviewed from the [facility] electronic medical record and any appropriate up-dates have been made. Physical Exam Temp 36.1 C (97 F) (Temporal) Physical Exam Vitals and nursing note reviewed. Constitutional: Appearance: Normal appearance. HENT: Head: Normocephalic and atraumatic. Nose: Nose normal. No rhinorrhea. Eyes: Conjunctiva/sclera: Conjunctivae normal. Cardiovascular: Rate and Rhythm: Normal rate. Pulmonary: Effort: Pulmonary effort is normal. No respiratory distress. Skin: General: Skin is warm and dry. Neurological: General: No focal deficit present. Mental Status: He is alert and oriented to person, place, and time. Psychiatric: Mood and Affect: Mood and affect normal. Behavior: Behavior normal. Diagnostic Data I have personally visualized, reviewed and analyzed the findings on pulmonary function testing and radiographs. Last CT/CTA Chest/Lungs CT CHEST WO IVCON Exam End: 08/31/2024 1:34 PM (Final result) Narrative: * * *Final Report* * * DATE OF EXAM: Aug 31 2024 1:34PM [facility] [place] - CT CHEST WO IVCON / PROCEDURE REASON: Lung nodules * * * * Physician Interpretation * * * * EXAMINATION: CHEST CT WITHOUT CONTRAST CLINICAL HISTORY: Lung nodule Technique: Spiral CT acquisition of the chest from the thoracic inlet to the upper abdomen without contrast. MQ: CTCWO_6 CT Radiation dose: Integrated Dose-length product (DLP) for this visit = 707 mGy*cm CT Dose Reduction Employed: Automated exposure control (AEC) Comparison: 03/03/2024, 12/05/2019 RESULT: Limitations: None. Lines, tubes, and devices: None. Lung parenchyma and airways: No consolidation. Unchanged cluster of numerous calcified nodules in right lower lobe. No suspicious pulmonary nodule. The central airways are patent. Pleural space: No pleural effusion. No pleural thickening. Lower neck, lymph nodes, and mediastinum: The imaged thyroid gland is normal. No lymphadenopathy in the supraclavicular, axillary, mediastinal, or hilar regions. Heart, pericardium, and thoracic vessels: The thoracic aorta and main pulmonary artery are normal in caliber. The cardiac chambers are normal in size. Mild coronary artery atherosclerotic calcifications are noted, although the study is not optimized for coronary assessment. No pericardial effusion or thickening. Bones and soft tissues: No destructive bone lesion. Chest wall is unremarkable. Upper abdomen: No abnormality in the imaged upper abdomen. Localizer images: No additional findings. Impression: IMPRESSION: No CT evidence of acute abnormality. Unchanged cluster of calcified nodules in right lower lobe representing sequela of previous granulomatous process such as histoplasmosis. Veneer Stapler: PSCB Transcribe Date/Time: Aug 31 2024 1:43P Dictated by : JETT NOEL MD This examination was interpreted and the report reviewed and electronically signed by: JETT NOEL MD on Aug 31 2024 1:47PM EST Impression / Recommendations To optimize physician communication via the electronic health record, the Impression & Recommendations section has been placed at the beginning of this note. ----- Raisa Han APRN.CNP Pulmonary & Critical Care Medicine August 31, 2024 1:52 PM Follow Up Diagnosis: Lung Nodule Recommendation: CT Scan Follow up Date: 08/31/2025 Follow-Up Scheduled: Yes Pulmonary Follow-Up Type: Lung Nodule Surveillance Lung Nodule Program Location: [facility] Intake information documented in the prior visit with Genesis Spencer APRN.CNP today. Jordan Alcala MA documented in this encounter [facility] 08-31-2024 Note HNO ID: [id number] Author: JORDAN ALCALA MA Service: ? Author Type: Bleach Analyst Type: Progress Notes Filed: 09/01/2024 09:16 Note Text: Intake information documented in the prior visit with Genesis Spencer APRN.CNP today. Jordan Alcala MA [facility] 08-31-2024 History of Present illness Narrative Radiology Service Progress Note PATIENT NAME: Nancy Enamorado DATE OF SERVICE: August 31, 2024 TIME: 1:32 PM PATIENT IDENTITY VERIFICATION COMPLETED USING TWO (2) IDENTIFIERS: Name and Date of confirmed by patient verbally and Name and Date of confirmed by identification band. FALL SCREENING: Has the patient had 2 falls in the last year or 1 fall with injury or currently using an Ambulatory Assistive Device (Walker, Cane, Wheelchair, Crutches, etc.)? No PATIENT GENDER DATA: Assigned male at PATIENT RELEVANT IMPLANT DATA REVIEWED: Yes PATIENT PRESENTS WITH AN IMPLANTABLE OR ATTACHED METALLURGY TEACHER: No RADIOLOGY DEPARTMENT: CT; Exam(s) Completed: Chest PERIPHERAL IV DATA: Not applicable SIGNED BY: RT Adam(Larissa) August 31, 2024 1:32 PM documented in this encounter [facility] 08-31-2024 Note HNO ID: [id number] Author: ANETTE BREWSTER RT(Larissa) Service: Radiology Author Type: Certified Performance Technologist Type: Progress Notes Filed: 08/31/2024 13:32 Note Text: Radiology Service Progress Note PATIENT NAME: Nancy Enamorado DATE OF SERVICE: August 31, 2024 TIME: 1:32 PM PATIENT IDENTITY VERIFICATION COMPLETED USING TWO (2) IDENTIFIERS: Name and Date of confirmed by patient verbally and Name and Date of confirmed by identification band. FALL SCREENING: Has the patient had 2 falls in the last year or 1 fall with injury or currently using an Ambulatory Assistive Device (Walker, Cane, Wheelchair, Crutches, etc.)? No PATIENT GENDER DATA: Assigned male at PATIENT RELEVANT IMPLANT DATA REVIEWED: Yes PATIENT PRESENTS WITH AN IMPLANTABLE OR ATTACHED METALLURGY TEACHER: No RADIOLOGY DEPARTMENT: CT; Exam(s) Completed: Chest PERIPHERAL IV DATA: Not applicable SIGNED BY: Anette Brewster RT(R) August 31, 2024 1:32 PM [facility] 08-31-2024 History of Present illness Narrative 08/31/2024 Patient presents with: 6 Month Exam SUBJECTIVE: This is a 53 year old that is here today for Above Complaints. DIABETES MELLITUS:Since our last visit he denies excessive thirst or increased frequency of urination, chest pain or dyspnea , numbness, tingling or pain in extremities, new or unusual visual symptoms, low sugar/hypoglycemic reactions, weight loss/gain, lightheadedness/dizziness, and bowel changes/loose stools. Follows a diabetic diet most of the time. He is compliant with medication(s) and is tolerating med(s) without any side effects. He reports checking his glucose on a once a day schedule with sugars in the 100-1teens range. Patient's last HgA1C was Hemoglobin A1C (%) Date Value 03/02/2024 5.5 08/23/2023 5.3 07/06/2021 6.0 08/11/2020 5.8 Hemoglobin A1C (POCT) (%) Date Value 05/30/2023 5.9 ) Last Ophthalmology exam was within the past 12 months JOSÉ MIGUEL/RLS: has upcoming sleep test. Uses CPAP but not tolerating. Follows with sleep medicine with last visit on 07/22/2024 HTN: Patient is compliant with meds Yes Monitors bp at home: Yes. Denies side effects: Yes. Chest pain: No. Dyspnea: No. Edema: No. Palpitations: No. Syncope: No. Headache: No. Dizziness: No. Depression: Taking Wellbutrin as prescribed without side effects. Works well to control symptoms. Denies SI or HI Follows with pulmonology for hx of lung nodules. Reports he has upcoming CT sca PAST MEDICAL HISTORY Diagnosis Date Achilles tendinosis of left lower extremity s/p repair BPH (benign prostatic hyperplasia) Diabetes mellitus type II (HCC) Erectile dysfunction Heel spur, left Hypertension Hypertriglyceridemia Hypogonadism in male Idiopathic neuropathy Lipoma of right shoulder 05/2023 JOSÉ MIGUEL (obstructive sleep apnea) 08/2020 RLS (restless legs syndrome) Dr Man Thrombosed hemorrhoids 11/2021 Vitamin D deficiency ALLERGIES Metformin MEDICATIONS Current Outpatient Medications Medication Sig semaglutide (OZEMPIC) 1 mg/dose (4 mg/3 mL) pen Inject 1 mg subcutaneously one time a week. methadone (DOLOPHINE) 5 mg tablet Take 1.5 tablets by mouth every evening for 30 days. Patient should start on July 25, 2024. methadone (DOLOPHINE) 5 mg tablet Take 1.5 tablets by mouth every evening for 30 days. Patient should start on August 24, 2024. [START ON 09/23/2024] methadone (DOLOPHINE) 5 mg tablet Take 1.5 tablets by mouth every evening for 30 days. Patient should start on September 23, 2024. Tadalafil (CIALIS) 5 mg tablet Take 1 tablet by mouth once daily. testosterone cypionate (DEPO-TESTOSTERONE) 200 mg/mL injection Inject 1 mL intramuscularly every 2 weeks for 180 days. lisinopril-hydroCHLOROthiazide (ZESTORETIC) 20-12.5 mg per tablet Take 2 tablets by mouth once daily. buPROPion XL (WELLBUTRIN XL) 150 mg 24 hr tablet Take 1 tablet by mouth once daily. CPAP/BIPAP/OTHER Type .CPAPSettings into a note to see current settings/supplies/DME information. atorvastatin (LIPITOR) 20 mg tablet Take 1 tablet by mouth daily at bedtime. For cholesterol. blood sugar diagnostic (BLOOD GLUCOSE TEST) test strip Test blood sugar(s) 1-2 times daily. Dx: Type 2 DM - Uncontrolled E11.65 Insulin: No Lancets lancets Test blood sugar(s) 1-2 times daily. Dx: Type 2 DM - Uncontrolled E11.65 Insulin: No CPAP/BIPAP/OTHER Continue Auto CPAP with current settings of 8-15 cm H2O. Lifetime supplies for Auto CPAP, including patient preferred mask, head gear, heated tubing, humidity, filters, chin strap. Dx: Obstructive Sleep Apnea G47.33 DME: [employer] No current facility-administered medications for this visit. Medications and allergies reviewed by this provider. SOCIAL HISTORY Social History Tobacco Use Smoking status: Never Smokeless tobacco: Never Vaping Use Vaping status: Never Used Substance Use Topics Alcohol use: Yes Alcohol/week: 2.0 standard drinks of alcohol Types: 2 Cans of beer per week Drug use: Never REVIEW OF SYSTEMS All other reviewed and negative other than HPI. OBJECTIVE: BP 114/78 Pulse 79 Resp 18 Wt 115.1 kg (253 lb 12 oz) SpO2 96% BMI 34.41 kg/m . Vital signs reviewed by this provider. APPEARANCE Well appearing, alert, in no acute distress, well-hydrated, well nourished. EYES PERRLA, conjunctiva and sclera normal. HEART RRR with normal S1 and S2, no murmurs, no gallops, no JVD appreciated LUNG clear to auscultation. No wheezes, rhonchi or rales EXTREMITIES Extremities normal, No deformities, No skin discoloration, and No edema SKIN Skin color, texture, turgor normal, no suspicious rashes or lesions DM foot exam: shoes and socks removed, No deformities, ulcers, calluses, normal distal pulses, and not sensitive to monofilament bilaterally Latest Ref Rng 03/02/2024 Protein, Total 6.3 - 8.0 g/dL 7.6 Albumin 3.9 - 4.9 g/dL 4.4 Calcium 8.5 - 10.2 mg/dL 9.9 Bilirubin, Total 0.2 - 1.3 mg/dL 0.6 Alkaline Phosphatase 38 - 113 U/L 79 AST 14 - 40 U/L 20 ALT 10 - 54 U/L 23 Glucose 74 - 99 mg/dL 74 BUN 9 - 24 mg/dL 8 (L) Creatinine 0.73 - 1.22 mg/dL 1.11 Sodium 136 - 144 mmol/L 139 Potassium 3.7 - 5.1 mmol/L 3.8 Chloride 98 - 107 mmol/L 98 CO2 22 - 30 mmol/L 27 Anion Gap 8 - 15 mmol/L 14 eGFR >=60 mL/min/1.73m 79 Hemoglobin A1C 4.3 - 5.6 % 5.5 Estimated Average Glucose mg/dL 111 Latest Ref Rng 11/26/2023 WBC 3.70 - 11.00 k/uL 9.36 RBC 4.20 - 6.00 m/uL 5.03 Hemoglobin 13.0 - 17.0 g/dL 15.6 Hematocrit 39.0 - 51.0 % 45.5 MCV 80.0 - 100.0 fL 90.5 MCH 26.0 - 34.0 pg 31.0 MCHC 30.5 - 36.0 g/dL 34.3 RDW-CV 11.5 - 15.0 % 12.7 Platelet Count 150 - 400 k/uL 322 MPV 9.0 - 12.7 fL 8.9 (L) Neut% % 58.3 Abs Neut (ANC) 1.45 - 7.50 k/uL 5.45 Lymph% % 33.2 Abs Lymph 1.00 - 4.00 k/uL 3.11 Moca% % 6.5 Abs Moca <0.87 k/uL 0.61 Eosin% % 1.2 Abs Eosin <0.46 k/uL 0.11 Baso% % 0.4 Abs Baso <0.11 k/uL 0.04 Immature Gran % % 0.4 IMMATURE GRANS (ABS) <0.10 k/uL 0.04 NRBC /100 WBC 0.0 Absolute nRBC <0.01 k/uL <0.01 DTYPE Auto Latest Ref Rng 08/23/2023 Cholesterol, Total <200 mg/dL 180 Triglyceride <150 mg/dL 230 (H) HDL Cholesterol >39 mg/dL 32 (L) Non HDL Cholesterol <130 mg/dL 148 (H) Fasting Time hrs 13 VLDL Cholesterol <30 mg/dL 46 (H) TC:HDL Ratio <5.10 5.63 (H) LDL Cholesterol <100 mg/dL 102 (H) LDL:HDL Ratio <2.54 3.19 (H) Dilated Retinal Exam Never done Depression Screening Never done Anxiety Screening Never done Hepatitis B Vaccine(1 of 3 - 19+ 3-dose series) Never done Colorectal Cancer Screening due on 02/17/2021 HbA1C due on 08/30/2024 LDL Cholesterol due on 08/22/2024 Covid-19 Vaccine( season) due on 03/02/2025 Urine Albumin:Creatinine Ratio due on 03/02/2025 Annual PCP Team Chronic Disease Visit due on 03/02/2025 BP Controlled (<130/80) due on 06/22/2025 Diabetic Foot Exam due on 08/31/2025 DTaP,Tdap,Td Vaccine(2 - Td or Tdap) due on 03/10/2030 Influenza Vaccine Completed Hepatitis C Screening Completed HIV Screening Completed Shingrix Vaccine Completed Pneumococcal Vaccine: 50+ Completed ASSESSMENT/PLAN: 1. Controlled type 2 diabetes mellitus without complication, without long-term current use of insulin (HCC) - ICD9: 250.00, ICD10: E11.9 (primary diagnosis) - Control undetermined, due for labs - Continue current medications - Statin prescribed - atorvastatin - Blood glucose monitoring on a once daily schedule - Discussed need for and benefit of weight loss. BMI 34.41 kg/(m^2) - Follow up in 6 months, sooner should any other issues arise. - SEMAGLUTIDE 1 MG/DOSE (4 MG/3 ML) SUBCUTANEOUS PEN INJECTOR - HEMOGLOBIN A1C - COMPREHENSIVE METABOLIC PANEL - IMMUNOCHEMICAL FECAL OCCULT BLOOD TEST 2. Hypertriglyceridemia - ICD9: 272.1, ICD10: E78.1 - Control undetermined, due for labs - Continue current medications - Counseled on healthy diet and regular exercise - Discussed need for and benefit of weight loss. BMI 34.41 kg/(m^2) - Follow up in 6 months, sooner should any other issues arise. - ATORVASTATIN 20 MG TABLET - LIPID PANEL, FASTING 3. Encounter for screening fecal occult blood testing - ICD9: V76.51, ICD10: Z12.11 - IMMUNOCHEMICAL FECAL OCCULT BLOOD TEST 4. Primary hypertension - ICD9: 401.9, ICD10: I10 - Controlled - Continue current medications - Recommend home blood pressure monitoring, to bring results to next visit - Encouraged sodium restriction, DASH or Mediterranean diet - Recommend regular aerobic exercise - Discussed need for and benefit of weight loss. BMI 34.41 kg/(m^2) - Follow up in 6 months for hypertension visit 5. JOSÉ MIGUEL (obstructive sleep apnea) - ICD9: 327.23, ICD10: G47.33 - continue nightly use - follow-up with sleep medicine as scheduled 6. Restless legs syndrome (RLS) - ICD9: 333.94, ICD10: G25.81 - stable - follow-up with sleep medicine 7. Lung nodules - ICD9: 793.19, ICD10: R91.8 - follow-up for CT scan Genesis Spencer, BURIAL VAULT MAKER.STOGY ROLLER Prescription instructions reviewed with patient as applicable. Patient advised if symptoms do not improve or if symptoms worsen sooner, to contact their primary care physician. Potential red flag symptoms discussed with the patient. Reviewed appropriate action plan to take if red flag symptoms occur. Patient agreeable to treatment plan. Medical Decision Making: Problems: Moderate: 2+ stable chronic illnesses Data: Unique test(s) ordered: 3+ Risk: Moderate: Drug management Medical Decision Making Level: 4 - Moderate documented in this encounter [facility] 08-31-2024 Note HNO ID: [id number] Author: GENESIS SPENCER APRN.MARTA Service: ? Author Type: Nurse Practitioner Type: Progress Notes Filed: 08/31/2024 12:03 Note Text: 08/31/2024 Patient presents with: 6 Month Exam SUBJECTIVE: This is a 53 year old that is here today for Above Complaints. DIABETES MELLITUS:Since our last visit he denies excessive thirst or increased frequency of urination, chest pain or dyspnea , numbness, tingling or pain in extremities, new or unusual visual symptoms, low sugar/hypoglycemic reactions, weight loss/gain, lightheadedness/dizziness, and bowel changes/loose stools. Follows a diabetic diet most of the time. He is compliant with medication(s) and is tolerating med(s) without any side effects. He reports checking his glucose on a once a day schedule with sugars in the 100-1teens range. Patient's last HgA1C was Hemoglobin A1C (%) Date Value 03/02/2024 5.5 08/23/2023 5.3 07/06/2021 6.0 08/11/2020 5.8 Hemoglobin A1C (POCT) (%) Date Value 05/30/2023 5.9 ) Last Ophthalmology exam was within the past 12 months JOSÉ MIGUEL/RLS: has upcoming sleep test. Uses CPAP but not tolerating. Follows with sleep medicine with last visit on 07/22/2024 HTN: Patient is compliant with meds Yes Monitors bp at home: Yes. Denies side effects: Yes. Chest pain: No. Dyspnea: No. Edema: No. Palpitations: No. Syncope: No. Headache: No. Dizziness: No. Depression: Taking Wellbutrin as prescribed without side effects. Works well to control symptoms. Denies SI or HI Follows with pulmonology for hx of lung nodules. Reports he has upcoming CT sca PAST MEDICAL HISTORY Diagnosis Date Achilles tendinosis of left lower extremity s/p repair BPH (benign prostatic hyperplasia) Diabetes mellitus type II (HCC) Erectile dysfunction Heel spur, left Hypertension Hypertriglyceridemia Hypogonadism in male Idiopathic neuropathy Lipoma of right shoulder 05/2023 JOSÉ MIGUEL (obstructive sleep apnea) 08/2020 RLS (restless legs syndrome) Dr Man Thrombosed hemorrhoids 11/2021 Vitamin D deficiency ALLERGIES Metformin MEDICATIONS Current Outpatient Medications Medication Sig semaglutide (OZEMPIC) 1 mg/dose (4 mg/3 mL) pen Inject 1 mg subcutaneously one time a week. methadone (DOLOPHINE) 5 mg tablet Take 1.5 tablets by mouth every evening for 30 days. Patient should start on July 25, 2024. methadone (DOLOPHINE) 5 mg tablet Take 1.5 tablets by mouth every evening for 30 days. Patient should start on August 24, 2024. [START ON 09/23/2024] methadone (DOLOPHINE) 5 mg tablet Take 1.5 tablets by mouth every evening for 30 days. Patient should start on September 23, 2024. Tadalafil (CIALIS) 5 mg tablet Take 1 tablet by mouth once daily. testosterone cypionate (DEPO-TESTOSTERONE) 200 mg/mL injection Inject 1 mL intramuscularly every 2 weeks for 180 days. lisinopril-hydroCHLOROthiazide (ZESTORETIC) 20-12.5 mg per tablet Take 2 tablets by mouth once daily. buPROPion XL (WELLBUTRIN XL) 150 mg 24 hr tablet Take 1 tablet by mouth once daily. CPAP/BIPAP/OTHER Type .CPAPSettings into a note to see current settings/supplies/DME information. atorvastatin (LIPITOR) 20 mg tablet Take 1 tablet by mouth daily at bedtime. For cholesterol. blood sugar diagnostic (BLOOD GLUCOSE TEST) test strip Test blood sugar(s) 1-2 times daily. Dx: Type 2 DM - Uncontrolled E11.65 Insulin: No Lancets lancets Test blood sugar(s) 1-2 times daily. Dx: Type 2 DM - Uncontrolled E11.65 Insulin: No CPAP/BIPAP/OTHER Continue Auto CPAP with current settings of 8-15 cm H2O. Lifetime supplies for Auto CPAP, including patient preferred mask, head gear, heated tubing, humidity, filters, chin strap. Dx: Obstructive Sleep Apnea G47.33 DME: [employer] [facility] No current facility-administered medications for this visit. Medications and allergies reviewed by this provider. SOCIAL HISTORY Social History Tobacco Use Smoking status: Never Smokeless tobacco: Never Vaping Use Vaping status: Never Used Substance Use Topics Alcohol use: Yes Alcohol/week: 2.0 standard drinks of alcohol Types: 2 Cans of beer per week Drug use: Never REVIEW OF SYSTEMS All other reviewed and negative other than HPI. OBJECTIVE: BP 114/78 Pulse 79 Resp 18 Wt 115.1 kg (253 lb 12 oz) SpO2 96% BMI 34.41 kg/m? . Vital signs reviewed by this provider. APPEARANCE Well appearing, alert, in no acute distress, well-hydrated, well nourished. EYES PERRLA, conjunctiva and sclera normal. HEART RRR with normal S1 and S2, no murmurs, no gallops, no JVD appreciated LUNG clear to auscultation. No wheezes, rhonchi or rales EXTREMITIES Extremities normal, No deformities, No skin discoloration, and No edema SKIN Skin color, texture, turgor normal, no suspicious rashes or lesions DM foot exam: shoes and socks removed, No deformities, ulcers, calluses, normal distal pulses, and not sensitive to monofilament b (more content not included)... [facility] 07-28-2024 Telephone encounter Note Prescription Refill Information The patient has been identified by name and date of : Yes Caregiver verified no other encounters exist for this prescription request: Yes Caregiver confirmed with patient/requestor that no other refills are due, in the near future, with this provider at this time: Yes The last office visit in the department: 03/02/24 Does the patient have a future office visit with this provider/department: Yes, 08/31/24 Requested Prescriptions Pending Prescriptions Disp Refills semaglutide (OZEMPIC) 1 mg/dose (4 mg/3 mL) pen 3 Each 1 Sig: Inject 1 mg subcutaneously one time a week. Donte Nava LPN July 28, 2024 4:05 PM [facility] 07-28-2024 Miscellaneous Notes Prescription Refill Information The patient has been identified by name and date of : Yes Caregiver verified no other encounters exist for this prescription request: Yes Caregiver confirmed with patient/requestor that no other refills are due, in the near future, with this provider at this time: Yes The last office visit in the department: 03/02/24 Does the patient have a future office visit with this provider/department: Yes, 08/31/24 Requested Prescriptions Pending Prescriptions Disp Refills semaglutide (OZEMPIC) 1 mg/dose (4 mg/3 mL) pen 3 Each 1 Sig: Inject 1 mg subcutaneously one time a week. Donte Nava LPN July 28, 2024 4:05 PM documented in this encounter [facility] 07-22-2024 History of Present illness Narrative Images from the original note were not included. [facility] Virtual Visit Follow up/ Established patient visit Date of last visit : 03/16/2024 IMPRESSION: Obstructive sleep apnea (primary encounter diagnosis) Restless legs syndrome (rls) 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 Chronic use of opiate for therapeutic purpose Obesity, class ii, bmi 35-39.9 This is a pleasant 53 yo male with a PMH of JOSÉ MIGUEL, SWD, 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 He was doing well on PAP therapy for management of JOSÉ MIGUEL until approximately 8 to 9 months ago when he developed pressure intolerance for unknown reasons. He can no longer tolerate PAP therapy due to aerophagia and air hunger reports. He has tried turning off the ramp setting, and trying alternative masks without improvement. He is considering alternative treatment option of his JOSÉ MIGUEL with the hypoglossal nerve stimulator. I have discussed with him at this visit that he may be better tolerating of bilevel settings and therefore I have recommended a PAP titration study with bilevel settings. He is agreeable to plan. In the meantime he will continue trying to use his AutoPap, however it is interfering with sleep and he cannot seem to get more than an hour of usage per night. His RLS is very well-controlled on methadone 7.5 mg nightly. As long as he continues to take this medication he is not bothered by RLS symptoms. He denies drug side effect or adverse drug reaction. He denies drowsy driving. He is encouraged to obtain closer to 7 to 9 hours of sleep per night. All questions answered. PLAN: - Continue Auto CPAP as tolerated. - Due to increased difficulty tolerating CPAP settings, I recommend a PAP titration study with Bilevel settings. - Consult ENT for consideration of INSPIRE. - Remember to clean your mask and equipment regularly, as directed. - You should be eligible for new supplies approximately every 3-6 months, depending on your insurance coverage. Contact your Durable Medical Equipment (DME) company for new supplies as needed. - RLS well controlled with Methadone 7.5 mg in the evening. - Obtain annual utox - Follow up in 3 months or sooner if needed. Ganesh Ojeda APRN.STOGY ROLLER I have communicated my name and active licensure. The patient's identity and physical location were verified at the time of this visit. Either the patient or their legal customer response representative has been informed of the risks and benefits of -- and alternatives to -- treatment through a remote evaluation and consents to proceed with the evaluation remotely. Interval history : Here for follow up for JOSÉ MIGUEL and RLS follow up. Did not obtain pap titration study after last visit due to family responsibilities. He plans to reschedule. ENT appt was cancelled by physician, and he will also reschedule that. SLEEP APNEA Sleep apnea type : JOSÉ MIGUEL, Most Recent Apnea-Hypopnea Index (AHI): 23.3 Treatment : PAP therapy DME: [employer] PAP History: Uses AutoPAP for 4 hours per night, 7 nights per week. Current PAP settin-20 cm H2O. Difficulties with AutoPAP: aerophagia Reviewed objective PAP compliance data: Mask type: nasal pillow interface Uses humidity: Yes There is a perceived benefit by the patient. ------- RLS Current treatment : Medication(s) and timing : Methadone 7.5 mg every evening (~1.5 hrs before bed). (last filled 02/26/2024) Status : improved He has no symptoms with Methadone. Prior treatment: Lyrica, Gabapentin, Pramipexole, Requip Last staff visit: 12/05/2023 Last urine tox screen: 03/27/2024; negative Last EC11/25/2023 NSR 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 03/15/2024 Sleep Questions On average, hours of sleep in 24 hours: 6 Average hours of CPAP per night: 4 Percent of nights CPAP used at least 4 hours: 2 Accidents or near accidents due to drowsy drivin 08/25/2023 11/28/2023 03/15/2024 Sullivan Sleepiness Scale Score 6 (No clinically significant daytime sleepiness) 7 (No clinically significant daytime sleepiness) 10 (No clinically significant daytime sleepiness) 08/25/2023 11/28/2023 03/10/2024 PROMIS CAT Sleep Disturbance PROMIS Sleep Disturbance T-Score 43 (within normal limits) 53 (within normal limits) 47 (within normal limits) PROMIS Sleep Disturbance Percentile 76 38 62 12/09/2021 07/29/2022 02/28/2023 Insomnia Severity Index Score 19 14 12 08/25/2023 11/28/2023 03/15/2024 Restless Leg Syndrome Score 4 (Mild Symptoms) 32 (Very severe symptoms) 4 (Mild Symptoms) 03/15/2024 02/25/2024 11/28/2023 PHQ-9 Score 12 6 5 08/25/2023 11/24/2023 02/25/2024 PROMIS Global Health - (T-Scores - the mean of general population = 50. Five points is a clinically meaningful difference.) Physical T-Score 57.7 57.7 61.9 54.1 54.1 Mental T-Score 50.8 50.8 56 48.3 48.3 Multiple values from one day are sorted in reverse-chronological order ALLERGIES Allergen Reactions Metformin Intolerance Muscle aches, increase stool CURRENT MEDICATIONS: Tadalafil (CIALIS) 5 mg tablet Take 1 tablet by mouth once daily. methadone (DOLOPHINE) 5 mg tablet Take 1.5 tablets by mouth every evening for 30 days. Patient should start on June 25, 2024. semaglutide (OZEMPIC) 1 mg/dose (4 mg/3 mL) pen Inject 1 mg subcutaneously one time a week. testosterone cypionate (DEPO-TESTOSTERONE) 200 mg/mL injection Inject 1 mL intramuscularly every 2 weeks for 180 days. lisinopril-hydroCHLOROthiazide (ZESTORETIC) 20-12.5 mg per tablet Take 2 tablets by mouth once daily. buPROPion XL (WELLBUTRIN XL) 150 mg 24 hr tablet Take 1 tablet by mouth once daily. methadone (DOLOPHINE) 5 mg tablet Take 1.5 tablets by mouth every evening for 30 days. Patient should start on April 26, 2024. methadone (DOLOPHINE) 5 mg tablet Take 1.5 tablets by mouth every evening for 30 days. Patient should start on May 26, 2024. CPAP/BIPAP/OTHER Type .CPAPSettings into a note to see current settings/supplies/DME information. atorvastatin (LIPITOR) 20 mg tablet Take 1 tablet by mouth daily at bedtime. For cholesterol. blood sugar diagnostic (BLOOD GLUCOSE TEST) test strip Test blood sugar(s) 1-2 times daily. Dx: Type 2 DM - Uncontrolled E11.65 Insulin: No Lancets lancets Test blood sugar(s) 1-2 times daily. Dx: Type 2 DM - Uncontrolled E11.65 Insulin: No CPAP/BIPAP/OTHER Continue Auto CPAP with current settings of 8-15 cm H2O. Lifetime supplies for Auto CPAP, including patient preferred mask, head gear, heated tubing, humidity, filters, chin strap. 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 He was doing well on PAP therapy for management of JOSÉ MIGUEL until approximately a year ago, when he developed pressure intolerance for unknown reasons. He is having difficulty tolerating PAP therapy due to aerophagia and air hunger reports. He has tried turning off the ramp setting, and trying alternative masks without improvement. He is considering alternative treatment option of his JOSÉ MIGUEL with the hypoglossal nerve stimulator, and will consult ENT. I have discussed with him at last visit and again today, that he may be better tolerating of bilevel settings. He was unable to complete recommended PAP titration study due to family responsibilities, however he will schedule in near future. His RLS is very well-controlled on methadone 7.5 mg nightly. As long as he continues to take this medication he is not bothered by RLS symptoms. He denies drug side effect or adverse drug reaction. He denies drowsy driving. He is encouraged to obtain closer to 7 to 9 hours of sleep per night. All questions answered. PLAN: - Continue Auto CPAP as tolerated. - Due to increased difficulty tolerating CPAP settings, I recommend a PAP titration study with Bilevel settings. - Consult ENT for consideration of INSPIRE. - Remember to clean your mask and equipment regularly, as directed. - You should be eligible for new supplies approximately every 3-6 months, depending on your insurance coverage. Contact your Durable Medical Equipment (DME) company for new supplies as needed. - RLS well controlled with Methadone 7.5 mg in the evening. - Obtain annual utox - Follow up in 3 months or sooner if needed. Ganesh Ojeda APRN.MARTA I spent a total of 30 minutes on the date of the service which included preparing to see the patient, [id number] patient care, completing clinical documentation, counseling and educating the patient/family/caregiver, ordering medications, tests, or procedures, and communicating results to the patient/family/caregiver. documented in this encounter [facility] 07-22-2024 Note HNO ID: [id number] Author: GANESH OJEDA APRN.CNP Service: ? 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 He was doing well on PAP therapy for management of JOSÉ MIGUEL until approximately 8 to 9 months ago when he developed pressure intolerance for unknown reasons. He can no longer tolerate PAP therapy due to aerophagia and air hunger reports. He has tried turning off the ramp setting, and trying alternative masks without improvement. He is considering alternative treatment option of his JOSÉ MIGUEL with the hypoglossal nerve stimulator. I have discussed with him at this visit that he may be better tolerating of bilevel settings and therefore I have recommended a PAP titration study with bilevel settings. He is agreeable to plan. In the meantime he will continue trying to use his AutoPap, however it is interfering with sleep and he cannot seem to get more than an hour of usage per night. His RLS is very well-controlled on methadone 7.5 mg nightly. As long as he continues to take this medication he is not bothered by RLS symptoms. He denies drug side effect or adverse drug reaction. He denies drowsy driving. He is encouraged to obtain closer to 7 to 9 hours of sleep per night. All questions answered. PLAN: - Continue Auto CPAP as tolerated. - Due to increased difficulty tolerating CPAP settings, I recommend a PAP titration study with Bilevel settings. - Consult ENT for consideration of INSPIRE. - Remember to clean your mask and equipment regularly, as directed. - You should be eligible for new supplies approximately every 3-6 months, depending on your insurance coverage. Contact your Durable Medical Equipment (DME) company for new supplies as needed. - RLS well controlled with Methadone 7.5 mg in the evening. - Obtain annual utox - Follow up in 3 months or sooner if needed. Ganesh Ojeda APRN.STOGY ROLLER I have communicated my name and active licensure. The patient's identity and physical location were verified at the time of this visit. Either the patient or their legal customer response representative has been informed of the risks and benefits of -- and alternatives to -- treatment through a remote evaluation and consents to proceed with the evaluation remotely. Interval history : Here for follow up for JOSÉ MIGUEL and RLS follow up. Did not obtain pap titration study after last visit due to family responsibilities. He plans to reschedule. ENT appt was cancelled by physician, and he will also reschedule that. SLEEP APNEA Sleep apnea type : JOSÉ MIGUEL, Most Recent Apnea-Hypopnea Index (AHI): 23.3 Treatment : PAP therapy DME: [employer] PAP History: Uses AutoPAP for 4 hours per night, 7 nights per week. Current PAP settin-20 cm H2O. Difficulties with AutoPAP: aerophagia Reviewed objective PAP compliance data: Mask type: nasal pillow interface Uses humidity: Yes There is a perceived benefit by the patient. RLS Current treatment : Medication(s) and timing : Methadone 7.5 mg every evening (~1.5 hrs before bed). (last filled 02/26/2024) Status : improved He has no symptoms with Methadone. Prior treatment: Lyrica, Gabapentin, Pramipexole, Requip Last staff visit: 12/05/2023 Last urine tox screen: 03/27/2024; negative Last EC11/25/2023 NSR 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 03/15/2024 Sleep Questions On average, hours of sleep in 24 hours: 6 Average hours of CPAP per night: 4 Percent of nights CPAP used at least 4 hours: 2 Accidents or near accidents due to drowsy drivin 08/25/2023 11/28/2023 03/15/2024 Sullivan Sleepiness Scale Score 6 (No clinically significant daytime sleepiness) 7 (No clinically significant daytime sleepiness) 10 (No clinically significant daytime sleepiness) 08/25/2023 11/28/2023 03/10/2024 PROMIS CAT Sleep Disturbance PROMIS Sleep Disturbance T-Score 43 (within normal limits) 53 (within normal limits) 47 (within normal limits) PROMIS Sleep Disturbance Percentile 76 38 62 12/09/2021 07/29/2022 02/28/2023 Insomnia Severity Index Score 19 14 12 08/25/2023 11/28/2023 03/15/2024 Restless Leg Syndrome Score 4 (Mild Symptoms) 32 (Very severe symptoms) 4 (Mild Symptoms) 03/15/2024 02/25/2024 11/28/2023 PHQ-9 Score 12 6 5 08/25/2023 11/24/2023 02/25/2024 PROMIS Global Health - (T-Scores - the mean of general population = 50. Five (more content not included)... [facility] 07-13-2024 Telephone encounter Note Prescription Refill Information The patient has been identified by name and date of : Yes Caregiver verified no other encounters exist for this prescription request: Yes Caregiver confirmed with patient/requestor that no other refills are due, in the near future, with this provider at this time: Yes The last office visit in the department: 03/02/2024 Does the patient have a future office visit with this provider/department: Yes Requested Prescriptions Pending Prescriptions Disp Refills Tadalafil (CIALIS) 5 mg tablet 90 tablet 1 Sig: Take 1 tablet by mouth once daily. Jacquelyn Hauser LPN July 13, 2024 2:16 PM [facility] 07-13-2024 Miscellaneous Notes Prescription Refill Information The patient has been identified by name and date of : Yes Caregiver verified no other encounters exist for this prescription request: Yes Caregiver confirmed with patient/requestor that no other refills are due, in the near future, with this provider at this time: Yes The last office visit in the department: 03/02/2024 Does the patient have a future office visit with this provider/department: Yes Requested Prescriptions Pending Prescriptions Disp Refills Tadalafil (CIALIS) 5 mg tablet 90 tablet 1 Sig: Take 1 tablet by mouth once daily. Jacquelyn Hauser LPN July 13, 2024 2:16 PM documented in this encounter [facility] 06-22-2024 Note HNO ID: [id number] Author: NIKKO MASCORRO APRN.STOGY ROLLER Service: ? Author Type: Nurse Practitioner Type: Progress Notes Filed: 06/22/2024 16:42 Note Text: CC: Patient presents with: Chest Congestion: cough, chills, burning in sinus and chest x 3 days HPI: Nancy Enamorado is a 53 year old male who presents to the office with complaint of chest congestion, cough, nonproductive, and fever for a few days. Symptoms are staying the same. Associated symptoms includes chills. Denies wheezing, dyspnea, nausea, vomiting , and diarrhea. Treatments tried include nothing so far. with no relief of symptoms. Sick contacts: unknown. History of asthma, frequent episodes of bronchitis, chronic bronchitis, bronchiectasis or COPD: No Smoker: No Seasonal/environmental allergies: No The ROS is otherwise negative. The patient's pmh, medications, allergies, and past visits are reviewed. PHYSICAL EXAM: BP 124/76 Pulse 88 Temp 36.2 ?C (97.2 ?F) Resp 16 Wt 112.2 kg (247 lb 5.7 oz) SpO2 96% BMI 33.54 kg/m? General appearance: alert, cooperative, pleasant, in no acute distress Head: Normocephalic Eyes: EOM's intact, conjunctiva pink and moist, no icterus, sclera white, non-injected Ears: Right ear: External ear/canal- Normal, TM - clear with good landmarks. Left ear: External ear/canal- Normal, TM - clear with good landmarks Oropharynx:moist without lesions, No erythema, exudates or tonsillar hypertrophy. Heart: Negative. RRR without obvious murmur, gallop, or rubs. No ectopy. Lungs: clear to auscultation, without rales or wheeze, good air exchange PAST MEDICAL HISTORY Diagnosis Date Achilles tendinosis of left lower extremity s/p repair BPH (benign prostatic hyperplasia) Diabetes mellitus type II (HCC) Erectile dysfunction Heel spur, left Hypertension Hypertriglyceridemia Hypogonadism in male Idiopathic neuropathy Lipoma of right shoulder 05/2023 JOSÉ MIGUEL (obstructive sleep apnea) 08/2020 RLS (restless legs syndrome) Dr Man Thrombosed hemorrhoids 11/2021 Vitamin D deficiency PAST SURGICAL HISTORY Procedure Laterality Date APPENDECTOMY ARTHROSCOPY KNEE DIAGNOSTIC W/WO SYNOVIAL BX SPX Left Arthroscopy, knee BX OF BREAST; INCISIONAL Right 06/12/[address] right posterior shoulder by Dr[address] Ball CHOLECYSTECTOMY HX HERNIA REPAIR HX Bilateral inguinal hernia, congenital NEUROPLASTY AND/TRANSPOS MEDIAN NRV CARPAL TUNNE Carpal tunnel decomp bilateral PAST SURGICAL HISTORY OF 07/30/2019 repair bone spur achilles left foot PAST SURGICAL HISTORY OF Left 08/21/2021 achilles tendon repair PAST SURGICAL HISTORY OF 12/05/2021 hemorrhoidectomy PAST SURGICAL HISTORY OF 06/12/2023 right shoulder lipoma removed SKIN BIOPSY HX TONSILLECTOMY HX TONSILLECTOMY PRIMARY/SECONDARY Tonsillectomy ALLERGIES Metformin MEDICATIONS [START ON 06/25/2024] methadone (DOLOPHINE) 5 mg tablet Take 1.5 tablets by mouth every evening for 30 days. Patient should start on June 25, 2024. semaglutide (OZEMPIC) 1 mg/dose (4 mg/3 mL) pen Inject 1 mg subcutaneously one time a week. testosterone cypionate (DEPO-TESTOSTERONE) 200 mg/mL injection Inject 1 mL intramuscularly every 2 weeks for 180 days. lisinopril-hydroCHLOROthiazide (ZESTORETIC) 20-12.5 mg per tablet Take 2 tablets by mouth once daily. buPROPion XL (WELLBUTRIN XL) 150 mg 24 hr tablet Take 1 tablet by mouth once daily. methadone (DOLOPHINE) 5 mg tablet Take 1.5 tablets by mouth every evening for 30 days. Patient should start on May 26, 2024. CPAP/BIPAP/OTHER Type .CPAPSettings into a note to see current settings/supplies/DME information. atorvastatin (LIPITOR) 20 mg tablet Take 1 tablet by mouth daily at bedtime. For cholesterol. blood sugar diagnostic (BLOOD GLUCOSE TEST) test strip Test blood sugar(s) 1-2 times daily. Dx: Type 2 DM - Uncontrolled E11.65 Insulin: No Lancets lancets Test blood sugar(s) 1-2 times daily. Dx: Type 2 DM - Uncontrolled E11.65 Insulin: No CPAP/BIPAP/OTHER Continue Auto CPAP with current settings of 8-15 cm H2O. Lifetime supplies for Auto CPAP, including patient preferred mask, head gear, heated tubing, humidity, filters, chin strap. Dx: Obstructive Sleep Apnea G47.33 DME: [facility] Conrad methadone (DOLOPHINE) 5 mg tablet Take 1.5 tablets by mouth every evening for 30 days. Patient should start on April 26, 2024. Tadalafil (CIALIS) 5 mg tablet Take 1 tablet by mouth once daily. FAMILY HISTORY Problem Relation Age of Onset COPD Mother Cancer Mother lung Heart disease Father Cancer Father lung, liver, kidney, colon Depression Father Anxiety disorder Father other (cancer) Father Psychiatry Brother Cancer Brother Multiple Sclerosis Daughter other (apraxia) Son Heart disease Maternal Grandmother Heart disease Maternal Grandfather Heart disease Paternal Grandmother Heart disease Paternal Grandfather Social History Tob (more content not included)... [facility] 06-22-2024 History of Present illness Narrative CC: Patient presents with: Chest Congestion: cough, chills, burning in sinus and chest x 3 days HPI: Nancy Enamorado is a 53 year old male who presents to the office with complaint of chest congestion, cough, nonproductive, and fever for a few days. Symptoms are staying the same. Associated symptoms includes chills. Denies wheezing, dyspnea, nausea, vomiting , and diarrhea. Treatments tried include nothing so far. with no relief of symptoms. Sick contacts: unknown. History of asthma, frequent episodes of bronchitis, chronic bronchitis, bronchiectasis or COPD: No Smoker: No Seasonal/environmental allergies: No The ROS is otherwise negative. The patient's pmh, medications, allergies, and past visits are reviewed. PHYSICAL EXAM: BP 124/76 Pulse 88 Temp 36.2 C (97.2 F) Resp 16 Wt 112.2 kg (247 lb 5.7 oz) SpO2 96% BMI 33.54 kg/m General appearance: alert, cooperative, pleasant, in no acute distress Head: Normocephalic Eyes: EOM's intact, conjunctiva pink and moist, no icterus, sclera white, non-injected Ears: Right ear: External ear/canal- Normal, TM - clear with good landmarks. Left ear: External ear/canal- Normal, TM - clear with good landmarks Oropharynx:moist without lesions, No erythema, exudates or tonsillar hypertrophy. Heart: Negative. RRR without obvious murmur, gallop, or rubs. No ectopy. Lungs: clear to auscultation, without rales or wheeze, good air exchange PAST MEDICAL HISTORY Diagnosis Date Achilles tendinosis of left lower extremity s/p repair BPH (benign prostatic hyperplasia) Diabetes mellitus type II (HCC) Erectile dysfunction Heel spur, left Hypertension Hypertriglyceridemia Hypogonadism in male Idiopathic neuropathy Lipoma of right shoulder 05/2023 JOSÉ MIGUEL (obstructive sleep apnea) 08/2020 RLS (restless legs syndrome) Dr Man Thrombosed hemorrhoids 11/2021 Vitamin D deficiency PAST SURGICAL HISTORY Procedure Laterality Date APPENDECTOMY ARTHROSCOPY KNEE DIAGNOSTIC W/WO SYNOVIAL BX SPX Left Arthroscopy, knee BX OF BREAST; INCISIONAL Right 06/12/[address] shoulder [address] Dr[address] Ball CHOLECYSTECTOMY HX HERNIA REPAIR HX Bilateral inguinal hernia, congenital NEUROPLASTY &/TRANSPOS MEDIAN NRV CARPAL TUNNE Carpal tunnel decomp bilateral PAST SURGICAL HISTORY OF 07/30/2019 repair bone spur achilles left foot PAST SURGICAL HISTORY OF Left 08/21/2021 achilles tendon repair PAST SURGICAL HISTORY OF 12/05/2021 hemorrhoidectomy PAST SURGICAL HISTORY OF 06/12/2023 right shoulder lipoma removed SKIN BIOPSY HX TONSILLECTOMY HX TONSILLECTOMY PRIMARY/SECONDARY <AGE 12 Tonsillectomy ALLERGIES Metformin MEDICATIONS [START ON 06/25/2024] methadone (DOLOPHINE) 5 mg tablet Take 1.5 tablets by mouth every evening for 30 days. Patient should start on June 25, 2024. semaglutide (OZEMPIC) 1 mg/dose (4 mg/3 mL) pen Inject 1 mg subcutaneously one time a week. testosterone cypionate (DEPO-TESTOSTERONE) 200 mg/mL injection Inject 1 mL intramuscularly every 2 weeks for 180 days. lisinopril-hydroCHLOROthiazide (ZESTORETIC) 20-12.5 mg per tablet Take 2 tablets by mouth once daily. buPROPion XL (WELLBUTRIN XL) 150 mg 24 hr tablet Take 1 tablet by mouth once daily. methadone (DOLOPHINE) 5 mg tablet Take 1.5 tablets by mouth every evening for 30 days. Patient should start on May 26, 2024. CPAP/BIPAP/OTHER Type .CPAPSettings into a note to see current settings/supplies/DME information. atorvastatin (LIPITOR) 20 mg tablet Take 1 tablet by mouth daily at bedtime. For cholesterol. blood sugar diagnostic (BLOOD GLUCOSE TEST) test strip Test blood sugar(s) 1-2 times daily. Dx: Type 2 DM - Uncontrolled E11.65 Insulin: No Lancets lancets Test blood sugar(s) 1-2 times daily. Dx: Type 2 DM - Uncontrolled E11.65 Insulin: No CPAP/BIPAP/OTHER Continue Auto CPAP with current settings of 8-15 cm H2O. Lifetime supplies for Auto CPAP, including patient preferred mask, head gear, heated tubing, humidity, filters, chin strap. Dx: Obstructive Sleep Apnea G47.33 DME: [facility] methadone (DOLOPHINE) 5 mg tablet Take 1.5 tablets by mouth every evening for 30 days. Patient should start on April 26, 2024. Tadalafil (CIALIS) 5 mg tablet Take 1 tablet by mouth once daily. FAMILY HISTORY Problem Relation Age of Onset COPD Mother Cancer Mother lung Heart disease Father Cancer Father lung, liver, kidney, colon Depression Father Anxiety disorder Father other (cancer) Father Psychiatry Brother Cancer Brother Multiple Sclerosis Daughter other (apraxia) Son Heart disease Maternal Grandmother Heart disease Maternal Grandfather Heart disease Paternal Grandmother Heart disease Paternal Grandfather Social History Tobacco Use Smoking status: Never Smokeless tobacco: Never Vaping Use Vaping status: Never Used Substance Use Topics Alcohol use: Yes Alcohol/week: 2.0 standard drinks of alcohol Types: 2 Cans of beer per week Drug use: Never ASSESSMENT/PLAN: 1. URI, acute - ICD9: 465.9, ICD10: J06.9 Otc meds for symptoms. No testing at this time. Tested negative for covid at home. Potential red flag symptoms discussed with the patient. Reviewed appropriate action plan to take if red flag symptoms occur. Patient agreeable to treatment plan. Nikko Mascorro APRN.CNP documented in this encounter [facility] 06-22-2024 Telephone encounter Note Datacastle message sent [facility] Work Phone: 06-22-2024 Miscellaneous Notes MyChart message sent documented in this encounter [facility] 06-07-2024 Telephone encounter Note Sleep medicine is not prescribing this medication. Would send to his PCP. [facility] Work Phone: 06-07-2024 Miscellaneous Notes Sleep medicine is not prescribing this medication. Would send to his PCP. SWAPNA: 03/16/24, Efraín In Person: 12/05/23, Donovan RAMOS: 12/05/23, Donovan F/U: none scheduled at this time IMPRESSION: Obstructive sleep apnea (primary encounter diagnosis) Restless legs syndrome (rls) [facility] prescription opiate use Chronic use of opiate for therapeutic purpose Obesity, class ii, bmi 35-39.9 This is a pleasant 53 yo male with a PMH of JOSÉ MIGUEL, SWD, RLS on correction opiates for management, BPH and obesity who presents virtually for follow up. He was doing well on PAP therapy for management of JOSÉ MIGUEL until approximately 8 to 9 months ago when he developed pressure intolerance for unknown reasons. He can no longer tolerate PAP therapy due to aerophagia and air hunger reports. He has tried turning off the ramp setting, and trying alternative masks without improvement. He is considering alternative treatment option of his JOSÉ MIGUEL with the hypoglossal nerve stimulator. I have discussed with him at this visit that he may be better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 APRN.MARTA documented in this encounter [facility] 03-03-2024 History of Present illness Narrative Images from the original note were not included. [facility] INCIDENTAL LUNG NODULE PROGRAM (Follow Up) Impression / Recommendations 1. Lung nodules - ICD9: 793.19, ICD10: R91.8 (primary diagnosis) - CT chest completed today was reviewed with patient. There are innumerable micronodules in the RML that are no calcified as well as calcified nodules. All appear to be stable in size. Overall number of nodules appears to be the same. No new concerning findings. - Recommend ongoing surveillance wit repeat imaging in 6 months. Patient is overall feeling well with no respiratory complaints today. He is having a stress exercise test today to further evaluate chest pain. - CT CHEST WO IVCON 2. Calcified granuloma of lung (HCC) - ICD9: 515, ICD10: J84.10 - Stable granulomas RML. Follow Up Follow Up Diagnosis: Lung Nodule Recommendation: CT Scan Follow up Date: 09/08/2024 Follow-Up Scheduled: Yes Pulmonary Follow-Up Type: Lung Nodule Surveillance Lung Nodule Program Location: [facility] Please enter a follow up date: 09/08/24 I spent a total of 41 minutes on the date of the service which included preparing to see the patient, [id number] patient care, completing clinical documentation, obtaining and/or reviewing separately obtained history, performing a medically appropriate examination, counseling and educating the patient/family/caregiver, and ordering medications, tests, or procedures. History of Present Illness Nancy Enamorado is a year old female with a pertinent past medical history significant for Never smoker who is being seen as a follow up for evaluation of a lung nodule(s). Nancy Enamorado initially presented to nodule clinic after they had a CT chest (scan type) on 12/05/23 (date) for the indication of lung nodule that was seen on CXR. CXR was done due to nausea and diaphoresis which have resolved. The CT scan showed many nodules both calcified and non calcified. Solid Smooth nodule/s up to 3 mm were noted in the Right middle lobe of the lung. Evaluation to date has included Serial CT Scans covering 3-6 months. The nodule of concern has not remained stable. Stable Respiratory symptoms include: SOB: No Chest tightness: Yes, notices it daily with certain movements, describes as shock type pain. He recently had echo which did not show any valvular abnormalities. He has stress test scheduled for later today. Coughing: No Hemoptysis: No Wheezing: No Fever/Chills: No. No night sweats Recent Respiratory Infection: No Unintentional weight loss: No Last 6 Encounter Wt Readings: Date: Wt: 03/02/2024 110.6 kg (243 lb 13.3 oz) 03/02/2024 111.2 kg (245 lb 2.4 oz) 12/25/2023 110.6 kg (243 lb 13.3 oz) 12/05/2023 107.5 kg (237 lb) 11/25/2023 110.8 kg (244 lb 3.2 oz) 08/29/2023 109.6 kg (241 lb 9.6 oz) Modified Medical Research [place] Dyspnea Scale (MMRC) I only get breathless with strenous exercise 0 Problem List, History, Medications and allergies have been reviewed from the [facility] electronic medical record and any appropriate up-dates have been made. Physical Exam BP 123/68 (BP Site: Left Arm, BP Position: Sitting, BP Cuff Size: Regular Adult) Pulse 91 Temp 36.1 C (97 F) (Temporal) Resp 15 Wt 111.2 kg (245 lb 2.4 oz) SpO2 95% BMI 33.24 kg/m Physical Exam Vitals and nursing note reviewed. Constitutional: Appearance: Normal appearance. HENT: Head: Normocephalic and atraumatic. Nose: Nose normal. No rhinorrhea. Mouth/Throat: Mouth: Mucous membranes are moist. Pharynx: Oropharynx is clear. Eyes: Conjunctiva/sclera: Conjunctivae normal. Pupils: Pupils are equal, round, and reactive to light. Cardiovascular: Rate and Rhythm: Normal rate and regular rhythm. Pulmonary: Effort: Pulmonary effort is normal. No respiratory distress. Breath sounds: No decreased breath sounds, wheezing, rhonchi or rales. Musculoskeletal: Cervical back: Neck supple. Lymphadenopathy: Cervical: No cervical adenopathy. Skin: General: Skin is warm and dry. Neurological: General: No focal deficit present. Mental Status: He is alert and oriented to person, place, and time. Psychiatric: Mood and Affect: Mood and affect normal. Behavior: Behavior normal. Diagnostic Data I have independently reviewed CT chest scan completed today. The final radiology report is still pending. Multiple calcified and non calcified micro nodules present in the right middle lobe. All findings appear stable compared to prior scan. 12/05/23 03/03/24 Echo 03/01/24: Impression CONCLUSIONS: - Exam indication: Chest Pain - The left ventricle is normal in size. Left ventricular systolic function is normal. EF = 60 5% (2D biplane) Normal left ventricular diastolic function. - The right ventricle is normal in size. Right ventricular systolic function is normal. - There are no significant valvular abnormalities. - Estimated right ventricular systolic pressure is not reported due to an insufficient tricuspid regurgitation signal. Estimated right atrial pressure is 3 mmHg based on IVC assessment. - The patient has not had a prior CC echocardiographic exam for comparison. * * * Final * * * Specimen Collected: 03/01/24 2:34 PM EDT Last Resulted: 03/01/24 3:56 PM EDT Impression / Recommendations To optimize physician communication via the electronic health record, the Impression & Recommendations section has been placed at the beginning of this note. ----- Raisa Han APRN.CNP Pulmonary & Critical Care Medicine March 03, 2024 1:18 PM documented in this encounter [facility] 03-03-2024 History of Present illness Narrative Radiology Service Progress Note PATIENT NAME: Nancy Enamorado DATE OF SERVICE: March 03, 2024 TIME: 12:31 PM PATIENT IDENTITY VERIFICATION COMPLETED USING TWO (2) IDENTIFIERS: Name and Date of confirmed by patient verbally. FALL SCREENING: Has the patient had 2 falls in the last year or 1 fall with injury or currently using an Ambulatory Assistive Device (Walker, Cane, Wheelchair, Crutches, etc.)? No PATIENT GENDER DATA: Male PATIENT RELEVANT IMPLANT DATA REVIEWED: Yes PATIENT PRESENTS WITH AN IMPLANTABLE OR ATTACHED METALLURGY TEACHER: No RADIOLOGY DEPARTMENT: CT; Exam(s) Completed: Chest PERIPHERAL IV DATA: Not applicable SIGNED BY: Meche Balderas March 03, 2024 12:31 PM documented in this encounter [facility] 03-02-2024 Instructions Genesis Spencer APRN.STOGY ROLLER - 03/02/2024 2:06 PM EDT Images from the original note were not included. To schedule a diabetic eye exam at the [facility], please call: [phone] Online resources to learn more [email or web address]/diabetes/ complications/eye-complications [email or web address]://[email or web address].org/healthy-eyes/e vq-hdw-holigd-conditions/diabetic- retinopathy?sso=y [email or web address] References 1. National Diabetes Statistics Report 2020: Estimates of Diabetes and Its Mobile in the [facility]. Center for Disease Control and Prevention; 2020. Available at: https://www.cdc.gov/diabetes/pdfs/ data/statistics/national-diabetes- statistics-report.pdf 2. Taylor Hayden, Veronica Celis, Shravan Snyder, Jamila Dean, Keyanna Ascencio, Chucky Mart, Wilner Maldonado, Pepe Weber; Diabetic Retinopathy: A Position Statement by the Citizen [place] Diabetes Association. Diabetes Care 14 August 2016; 40 (3): [phone] documented in this encounter [facility] 03-02-2024 History of Present illness Narrative 03/02/2024 SUBJECTIVE: This is a 53 year old that is here today for Above Complaints. Since last office visit has been in good health without ER visits or hospitalizations. DIABETES MELLITUS: Since our last visit he denies excessive thirst or increased frequency of urination, numbness, tingling or pain in extremities, new or unusual visual symptoms, low sugar/hypoglycemic reactions, weight loss/gain, and lightheadedness/dizzinessFollows a diabetic diet generally not very much. He is compliant with medication(s) and is tolerating med(s) without any side effects. He reports checking his glucose on a at least once a week schedule with sugars in the <120 range. Patient's last HgA1C was Hemoglobin A1C (%) Date Value 08/23/2023 5.3 03/03/2023 7.4 07/06/2021 6.0 08/11/2020 5.8 Hemoglobin A1C (POCT) (%) Date Value 05/30/2023 5.9 Last Ophthalmology exam - needs to schedule JOSÉ MIGUEL: uses CPAP nightly. Completed sleep test last night to see if he will qualify for Inspire implant Depression: taking Wellbutrin as prescribed without side effects. Denies depressive symptoms, SI, HI or insomnia HTN: Patient is compliant with meds Yes Monitors bp at home: occasionally . Denies side effects: No. Chest pain: Yes. Dyspnea: No. Edema: No. Palpitations: No. Syncope: No. Headache: No. Dizziness: No. Reports having bouts of either diarrhea or constipation for awhile. Also has some burping at times. Takes Miralax as needed for constipation. No aggravating features. Denies unintentional weight loss, abdominal pain, hematochezia or melana Has stress test scheduled tomorrow for chest pain. Recent normal ECHO PAST MEDICAL HISTORY Diagnosis Date Achilles tendinosis of left lower extremity s/p repair BPH (benign prostatic hyperplasia) Diabetes mellitus type II (HCC) Erectile dysfunction Heel spur, left Hypertension Hypertriglyceridemia Hypogonadism in male Idiopathic neuropathy Lipoma of right shoulder 05/2023 JOSÉ MIGUEL (obstructive sleep apnea) 08/2020 RLS (restless legs syndrome) Dr Man Thrombosed hemorrhoids 11/2021 Vitamin D deficiency ALLERGIES Metformin MEDICATIONS Current Outpatient Medications Medication Sig methadone (DOLOPHINE) 5 mg tablet Take 1.5 tablets by mouth every evening for 30 days. methadone (DOLOPHINE) 5 mg tablet Take 1.5 tablets by mouth every evening for 30 days. Tadalafil (CIALIS) 5 mg tablet Take 1 tablet by mouth once daily. testosterone cypionate (DEPO-TESTOSTERONE) 200 mg/mL injection Inject 1 mL intramuscularly every 2 weeks for 90 days. methadone (DOLOPHINE) 5 mg tablet Take 1 tablet by mouth every evening for 30 days. Do not start before December 28, 2023. buPROPion XL (WELLBUTRIN XL) 150 mg 24 hr tablet Take 1 tablet by mouth once daily. lisinopril-hydroCHLOROthiazide (ZESTORETIC) 20-12.5 mg per tablet Take 2 tablets by mouth once daily. semaglutide (OZEMPIC) 1 mg/dose (4 mg/3 mL) pen Inject 1 mg subcutaneously one time a week. atorvastatin (LIPITOR) 20 mg tablet Take 1 tablet by mouth daily at bedtime. For cholesterol. methadone (DOLOPHINE) 5 mg tablet Take 1.5 tablets by mouth every evening for 30 days. Do not start before October 26, 2023. blood sugar diagnostic (BLOOD GLUCOSE TEST) test strip Test blood sugar(s) 1-2 times daily. Dx: Type 2 DM - Uncontrolled E11.65 Insulin: No Lancets lancets Test blood sugar(s) 1-2 times daily. Dx: Type 2 DM - Uncontrolled E11.65 Insulin: No CPAP/BIPAP/OTHER Continue Auto CPAP with current settings of 8-15 cm H2O. Lifetime supplies for Auto CPAP, including patient preferred mask, head gear, heated tubing, humidity, filters, chin strap. Dx: Obstructive Sleep Apnea G47.33 DME: [employer] No current facility-administered medications for this visit. Medications and allergies reviewed by this provider. SOCIAL HISTORY Social History Tobacco Use Smoking status: Never Smokeless tobacco: Never Vaping Use Vaping status: Never Used Substance Use Topics Alcohol use: Yes Alcohol/week: 2.0 standard drinks of alcohol Types: 2 Cans of beer per week Drug use: Never REVIEW OF SYSTEMS All other reviewed and negative other than HPI. OBJECTIVE: BP 118/72 Pulse 91 Resp 18 Wt 111.2 kg (245 lb 2.4 oz) SpO2 94% BMI 33.24 kg/m . Vital signs reviewed by this provider. APPEARANCE Well appearing, alert, in no acute distress, well-hydrated, well nourished. EYES conjunctiva and sclera normal. HEART RRR with normal S1 and S2, no murmurs, no gallops, no JVD appreciated LUNG clear to auscultation. No wheezes, rhonchi or rales ABDOMEN bowel sounds normoactive, no bruits, soft, non-tender, non-distended EXTREMITIES Extremities normal, No deformities, No skin discoloration, and No edema SKIN Skin color, texture, turgor normal, no suspicious rashes or lesions to exposed skin Latest Ref [facility] 11/26/2023 WBC 3.70 - 11.00 k/uL 9.36 RBC 4.20 - 6.00 m/uL 5.03 Hemoglobin 13.0 - 17.0 g/dL 15.6 Hematocrit 39.0 - 51.0 % 45.5 MCV 80.0 - 100.0 fL 90.5 MCH 26.0 - 34.0 pg 31.0 MCHC 30.5 - 36.0 g/dL 34.3 RDW-CV 11.5 - 15.0 % 12.7 Platelet Count 150 - 400 k/uL 322 MPV 9.0 - 12.7 fL 8.9 (L) Neut% % 58.3 Abs Neut (ANC) 1.45 - 7.50 k/uL 5.45 Lymph% % 33.2 Abs Lymph 1.00 - 4.00 k/uL 3.11 Moca% % 6.5 Abs Moca <0.87 k/uL 0.61 Eosin% % 1.2 Abs Eosin <0.46 k/uL 0.11 Baso% % 0.4 Abs Baso <0.11 k/uL 0.04 Immature Gran % % 0.4 IMMATURE GRANS (ABS) <0.10 k/uL 0.04 NRBC /100 WBC 0.0 Absolute nRBC <0.01 k/uL <0.01 DTYPE Auto Protein, Total 6.3 - 8.0 g/dL 6.5 Albumin 3.9 - 4.9 g/dL 4.1 Calcium 8.5 - 10.2 mg/dL 9.2 Bilirubin, Total 0.2 - 1.3 mg/dL 0.5 Alkaline Phosphatase 38 - 113 U/L 86 AST 14 - 40 U/L 17 ALT 10 - 54 U/L 15 Glucose 74 - 99 mg/dL 89 BUN 9 - 24 mg/dL 7 (L) Creatinine 0.73 - 1.22 mg/dL 1.07 Sodium 136 - 144 mmol/L 136 Potassium 3.7 - 5.1 mmol/L 4.0 Chloride 98 - 107 mmol/L 99 CO2 22 - 30 mmol/L 26 Anion Gap 8 - 15 mmol/L 11 eGFR >=60 mL/min/1.73m 83 Testosterone Free 4.06 - 15.6 ng/dL 27.7 (H) Testosterone 240 - 950 ng/dL 782 Latest Ref Rng 08/23/2023 Cholesterol, Total <200 mg/dL 180 Triglyceride <150 mg/dL 230 (H) HDL Cholesterol >39 mg/dL 32 (L) Non HDL Cholesterol <130 mg/dL 148 (H) Fasting Time hrs 13 VLDL Cholesterol <30 mg/dL 46 (H) TC:HDL Ratio <5.10 5.63 (H) LDL Cholesterol <100 mg/dL 102 (H) LDL:HDL Ratio <2.54 3.19 (H) Dilated Retinal Exam Never done Depression Screening Never done Anxiety Screening Never done Colorectal Cancer Screening due on 02/17/2021 HbA1C due on 02/23/2024 Urine Albumin:Creatinine Ratio due on 03/03/2024 Hepatitis B Vaccine(1 of 3 - 19+ 3-dose series) due on 08/28/2024 Covid-19 Vaccine(2022- season) due on 03/02/2025 LDL Cholesterol due on 08/22/2024 Diabetic Foot Exam due on 08/28/2024 Annual PCP Team Chronic Disease Visit due on 03/02/2025 BP Controlled (<130/80) due on 03/02/2025 DTaP,Tdap,Td Vaccine(2 - Td or Tdap) due on 03/10/2030 Influenza Vaccine Completed Hepatitis C Screening Completed HIV Screening Completed Shingrix Vaccine Completed Pneumococcal Vaccine Completed ASSESSMENT/PLAN: 1. Type 2 diabetes mellitus without complication, without long-term current use of insulin (HCC) - ICD9: 250.00, ICD10: E11.9 (primary diagnosis) - Control undetermined, due for labs - Continue current medications - Statin prescribed - atorvastatin - Blood glucose monitoring on a once daily schedule - Counseled on healthy diet and regular exercise - Discussed need for and benefit of weight loss. BMI 33.25 kg/(m^2) - Follow up in 6 months, sooner should any other issues arise. - SEMAGLUTIDE 1 MG/DOSE (4 MG/3 ML) SUBCUTANEOUS PEN INJECTOR - CONSULT TO OPHTHALMOLOGY - HEMOGLOBIN A1C - ALBUMIN/CREATININE RATIO, URINE - COMPREHENSIVE METABOLIC PANEL 2. Hypertriglyceridemia - ICD9: 272.1, ICD10: E78.1 - Continue current medications - Counseled on healthy diet and regular exercise - Discussed need for and benefit of weight loss. BMI 33.25 kg/(m^2) - Follow up in 6 months, sooner should any other issues arise. - ATORVASTATIN 20 MG TABLET 3. Encounter for immunization - ICD9: V03.89, ICD10: Z23 - INFLUENZA VACCINE, AGE 6MO-64YR, TRIVALENT (AFLURIA, FLULAVAL, FLUVIRIN, FLUZONE) 4. Major depressive disorder, remission status unspecified, unspecified whether recurrent - ICD9: 296.20, ICD10: F32.9 - stable on current regime 5. Chest pain, unspecified type - ICD9: 786.50, ICD10: R07.9 - complete stress - no red flag symptoms - red flag symptoms discussed, verbalizes understanding - follow-up pending stress test to ER with red flag symptoms 6. JOSÉ MIGUEL (obstructive sleep apnea) - ICD9: 327.23, ICD10: G47.33 - follow-up with sleep medicine as scheduled 7. Essential hypertension - ICD9: 401.9, ICD10: I10 - Controlled - Continue current medications - Recommend home blood pressure monitoring, to bring results to next visit - Encouraged sodium restriction, DASH or Mediterranean diet - Recommend regular aerobic exercise - Discussed need for and benefit of weight loss. BMI 33.25 kg/(m^2) - Follow up in 6 months for hypertension visit 8. Alternating constipation and diarrhea - ICD9: 787.99, ICD10: R19.8 - possibly related to Ozempic - recommend daily fiber supplement - follow-up if symptoms fail to improve. May need to stop Ozempic [employer], BURIAL VAULT MAKER.STOGY ROLLER Prescription instructions reviewed with patient as applicable. Patient advised if symptoms do not improve or if symptoms worsen sooner, to contact their primary care physician. Potential red flag symptoms discussed with the patient. Reviewed appropriate action plan to take if red flag symptoms occur. Patient agreeable to treatment plan. Medical Decision Making: Problems: Moderate: 2+ stable chronic illnesses and New problem with uncertain prognosis Data: Unique test result(s) reviewed: 3+ Unique test(s) ordered: 2 Risk: Moderate: Drug management and Moderate risk from testing/treatment Medical Decision Making Level: 4 - Moderate documented in this encounter [facility] 03-02-2024 Telephone encounter Note Pt notified of results via [employer]. Marilee English Ma [facility] 03-02-2024 Miscellaneous Notes Pt notified of results via [employer] [facility]. Marilee English Ma Left a message for pt to call the office and ask to speak to a nurse. Blanca Lanier LPN ----- Message from Chayo Hickey MD sent at 03/02/2024 8:10 AM EDT ----- Patient's echo is normal. documented in this encounter [facility] 03-02-2024 Telephone encounter Note Left a message for pt to call the office and ask to speak to a nurse. Blanca Lanier LPN [facility] 03-02-2024 Telephone encounter Note ----- Message from Chayo Hickey MD sent at 03/02/2024 8:10 AM EDT ----- Patient's echo is normal. [facility] 03-02-2024 History of Present illness Narrative Sleep Study Check-In Documentation Date: March 02, 2024 Name: Nancy Enamorado Patient was accompanied by Self. Location: [place] Latex allergy: No Tape allergy: No Current medications were reviewed with the patient:Yes Sleep aid taken by patient for the sleep study: [place] of sleep aid: Not Applicable Procedure was explained to the patient and all questions were answered. PAP treatment discussed and shown to patient: Yes If PAP used enter mask info: n/a Knowledge Program (KP): KP was not completed in epic by patient and accepted Study type: Polysomnogram Adverse Event: No (If yes create a new abstract) Comments: Patient was advised to follow up with their ordering provider regarding test results Dee Pereira documented in this encounter [facility] 01-23-2024 Telephone encounter Note Prescription Refill Information The patient has been identified by name and date of : Yes Caregiver verified no other encounters exist for this prescription request: Yes Caregiver confirmed with patient/requestor that no other refills are due, in the near future, with this provider at this time: Yes The last office visit in the department: 08/29/2023 Does the patient have a future office visit with this provider/department: Yes Requested Prescriptions Pending Prescriptions Disp Refills Tadalafil (CIALIS) 5 mg tablet 90 tablet 1 Sig: Take 1 tablet by mouth once daily. Jacquelyn Hauser LPN January 23, 2024 9:42 AM [facility] 01-23-2024 Miscellaneous Notes Prescription Refill Information The patient has been identified by name and date of : Yes Caregiver verified no other encounters exist for this prescription request: Yes Caregiver confirmed with patient/requestor that no other refills are due, in the near future, with this provider at this time: Yes The last office visit in the department: 08/29/2023 Does the patient have a future office visit with this provider/department: Yes Requested Prescriptions Pending Prescriptions Disp Refills Tadalafil (CIALIS) 5 mg tablet 90 tablet 1 Sig: Take 1 tablet by mouth once daily. Jacquelyn Hauser LPN January 23, 2024 9:42 AM documented in this encounter [facility] 12-25-2023 Instructions Raisa Han APRN.CNP - 12/25/2023 10:35 AM EDT It was nice seeing you today! Reason for your visit: Lung Nodule Your CT scan shows some lung nodules that look like the may be related to a prior exposure to histoplasmosis (fungus in the environment). We can check some lab work to see if you have antibodies to this (prior exposure) or elevated antigen (active infection) We should repeat a CT scan in February to recheck the nodules. Please call our office with any questions or concerns [phone] (Lung Nodule Clinic) Thank you, Raisa Han APRN.CNP documented in this encounter [facility] 12-25-2023 History of Present illness Narrative Images from the original note were not included. [facility] INCIDENTAL LUNG NODULE PROGRAM Impression / Recommendations 1. Lung nodules - ICD9: 793.19, ICD10: R91.8 (primary diagnosis) - Nancy Enamorado presents today for consultation / opinion regarding incidental lung nodule(s). Nature of the lung nodule(s) and the options for further evaluation discussed in detail with patient. - We discussed findings are suggestive of prior granulomatous exposure given calcifications in the lung, lymph node and spleen. Discussed findings are not concerning for malignancy at this time. - There are several non calcified small nodules. We will plan to repeat a scan in 3 months to reassess these. - HISTOPLASMA AG URINE - FUNGAL BATTERY ID - CT CHEST WO IVCON 2. Calcified granuloma of lung (HCC) - ICD9: 515, ICD10: J84.10 - CT chest scan showing several calcified lung nodules. There is also calcified right hilar lymph node and several calcified splenic lesions. - We discussed these findings are indicative for prior exposure to granulomatous process such as histoplasmosis. - Given patient current symptoms of fatigue, nausea, night sweats, we will assess fungal serologies. Patient to stop by lab today to complete testing. 3. Bronchiolitis - ICD9: 466.19, ICD10: J21.9 - Monitor on upcoming CT scan. Nancy Enamorado expresses understanding and is in agreement with plan. All questions were answered to their apparent satisfaction. Raisa Han, BRITTANY.STOGY ROLLER Follow Up Diagnosis: Lung Nodule Recommendation: CT Scan Follow up Date: 03/02/2024 Pulmonary Follow-Up Type: Lung Nodule Surveillance Enrolled in Lung Nodule program: Yes Lung Nodule Program Location: [facility] Thank you for allowing me to participate in the care of Nancy Enamorado. Please feel free to contact me with any questions or concerns. Consulting Physician Chayo Hickey [id number] [facility] [id number] Reason for the Consult Nancy Enamorado presents today for consultation / opinion regarding lung nodule(s). My impression and final recommendations will be communicated back to the requesting physician by way of shared medical record or letter via US mail. History of Present Illness Nancy Enamorado is a 53 year old male Never smoker with a past medical history significant for HTN, HLD, BPH, RLS, JOSÉ MIGUEL, T2DM who is being seen as a new consultation for evaluation of a lung nodule(s). He is accompanied by his today. The patient recently had CXR (given new complaints of nausea, vertigo) which incidentally showed lung nodule in the right lung. He had follow up CT chest scan on 12/05/23 which showed calcified and non calcified nodules in the right middle lobe. Also noted were calcified right hilar lymph node and splenic lesions. The patient denies a prior history of lung nodules. He has no prior CT chest imaging available for comparison. Patient states for the last month he has been having intermittent nausea in the mornings. Denies fevers, chills. He states he has some sweating at night but this is typical for him. Sweats are not drenching. He notes increased fatigue and headaches. Denies cough, mucus or shortness of breath. No weight loss. He is noticing some voice change, feels some phlegm in the back of the throat and globus sensation. No rhinorrhea or nasal congestion. Does not typically have seasonal allergies No recent respiratory illnesses Exposures: + second hand smoke exposure in childhood Denies any occupational exposures Has always lived in [place] Dog in the home No recent travel Lung Nodule(s) Characteristics Date of imaging study: 12/05/23 Type of imaging study: CT Chest Nodule detection: During evaluation of systemic symptoms Number of nodules: >5 Size of most concerning nodule: 2 Density of most concerning nodule: Solid Border of most concerning nodule: Smooth Location of most concerning nodule: Right middle lobe Has the patient had prior chest imaging? No Lung Nodule Risk Factors: Tobacco Use: Never Does the patient have a prior history malignancy? No Does the patient have COPD/Emphysema? No Does the patient have a family history of lung cancer? Yes states both parents had lung cancer-- were smokers Brother has throat cancer Past Medical History PAST MEDICAL HISTORY Diagnosis Date Achilles tendinosis of left lower extremity s/p repair BPH (benign prostatic hyperplasia) Diabetes mellitus type II (HCC) Erectile dysfunction Heel spur, left Hypertension Hypertriglyceridemia Hypogonadism in male Idiopathic neuropathy Lipoma of right shoulder 05/2023 JOSÉ MIGUEL (obstructive sleep apnea) 08/2020 RLS (restless legs syndrome) Dr Man Thrombosed hemorrhoids 11/2021 Vitamin D deficiency Past Surgical History PAST SURGICAL HISTORY Procedure Laterality Date APPENDECTOMY ARTHROSCOPY KNEE DIAGNOSTIC W/WO SYNOVIAL BX SPX Left Arthroscopy, knee BX OF BREAST; INCISIONAL Right 06/12/[address] right posterior shoulder by Dr. Ball CHOLECYSTECTOMY HX HERNIA REPAIR HX Bilateral inguinal hernia, congenital NEUROPLASTY &/TRANSPOS MEDIAN NRV CARPAL TUNNE Carpal tunnel decomp bilateral PAST SURGICAL HISTORY OF 07/30/2019 repair bone spur achilles left foot PAST SURGICAL HISTORY OF Left 08/21/2021 achilles tendon repair PAST SURGICAL HISTORY OF 12/05/2021 hemorrhoidectomy PAST SURGICAL HISTORY OF 06/12/2023 right shoulder lipoma removed SKIN BIOPSY HX TONSILLECTOMY HX TONSILLECTOMY PRIMARY/SECONDARY <AGE 12 Tonsillectomy Medications [START ON 12/28/2023] methadone (DOLOPHINE) 5 mg tablet Take 1 tablet by mouth every evening for 30 days. Do not start before December 28, 2023. buPROPion XL (WELLBUTRIN XL) 150 mg 24 hr tablet Take 1 tablet by mouth once daily. testosterone cypionate (DEPO-TESTOSTERONE) 200 mg/mL injection Inject 1 mL intramuscularly every 2 weeks for 90 days. lisinopril-hydroCHLOROthiazide (ZESTORETIC) 20-12.5 mg per tablet Take 2 tablets by mouth once daily. semaglutide (OZEMPIC) 1 mg/dose (4 mg/3 mL) pen Inject 1 mg subcutaneously one time a week. atorvastatin (LIPITOR) 20 mg tablet Take 1 tablet by mouth daily at bedtime. For cholesterol. methadone (DOLOPHINE) 5 mg tablet Take 1.5 tablets by mouth every evening for 30 days. Do not start before November 26, 2023. Tadalafil (CIALIS) 5 mg tablet Take 1 tablet by mouth once daily. blood sugar diagnostic (BLOOD GLUCOSE TEST) test strip Test blood sugar(s) 1-2 times daily. Dx: Type 2 DM - Uncontrolled E11.65 Insulin: No Lancets lancets Test blood sugar(s) 1-2 times daily. Dx: Type 2 DM - Uncontrolled E11.65 Insulin: No CPAP/BIPAP/OTHER Continue Auto CPAP with current settings of 8-15 cm H2O. Lifetime supplies for Auto CPAP, including patient preferred mask, head gear, heated tubing, humidity, filters, chin strap. Dx: Obstructive Sleep Apnea G47.33 DME: [employer] methadone (DOLOPHINE) 5 mg tablet Take 1.5 tablets by mouth every evening for 30 days. Do not start before October 26, 2023. Allergies ALLERGIES Allergen Reactions Metformin Intolerance Muscle aches, increase stool Family History FAMILY HISTORY Problem Relation Age of Onset COPD Mother Cancer Mother lung Heart disease Father Cancer Father lung, liver, kidney, colon Depression Father Anxiety disorder Father other (cancer) Father Psychiatry Brother Cancer Brother Multiple Sclerosis Daughter other (apraxia) Son Heart disease Maternal Grandmother Heart disease Maternal Grandfather Heart disease Paternal Grandmother Heart disease Paternal Grandfather Social History Social History Tobacco Use Smoking status: Never Smokeless tobacco: Never Vaping Use Vaping Use: Never used Substance Use Topics Alcohol use: Yes Alcohol/week: 2.0 standard drinks of alcohol Types: 2 Cans of beer per week Drug use: Never Review of Systems GENERAL: No weight loss, malaise or fevers HEENT: No nasal bleeding, congestion or rhinorrhea RESPIRATORY: Negative for shortness of breath, cough, wheezing or mucus CARDIOVASCULAR: Negative for chest pain or palpitations. No dyspnea on exertion. SKIN: Negative for lesions, rash, and itching Physical Exam BP 117/74 Pulse 70 Temp 37 C (98.6 F) (Temporal) Resp 16 Wt 110.6 kg (243 lb 13.3 oz) SpO2 98% BMI 33.07 kg/m Physical Exam Vitals and nursing note reviewed. Constitutional: Appearance: Normal appearance. HENT: Head: Normocephalic and atraumatic. Nose: Nose normal. No rhinorrhea. Mouth/Throat: Mouth: Mucous membranes are moist. Pharynx: Oropharynx is clear. Eyes: Conjunctiva/sclera: Conjunctivae normal. Pupils: Pupils are equal, round, and reactive to light. Cardiovascular: Rate and Rhythm: Normal rate and regular rhythm. Pulmonary: Effort: Pulmonary effort is normal. No respiratory distress. Breath sounds: No decreased breath sounds, wheezing, rhonchi or rales. Musculoskeletal: Cervical back: Neck supple. Lymphadenopathy: Cervical: No cervical adenopathy. Skin: General: Skin is warm and dry. Neurological: General: No focal deficit present. Mental Status: He is alert and oriented to person, place, and time. Psychiatric: Mood and Affect: Mood and affect normal. Behavior: Behavior normal. Diagnostic Data * * *Final Report* * * DATE OF EXAM: Dec 05 2023 1:18PM [facility] 0541 - CT CHEST WO IVCON / PROCEDURE REASON: Abnormal chest x-ray with multiple lung nodules * * * * Physician Interpretation * * * * EXAMINATION: CHEST CT WITHOUT CONTRAST CLINICAL HISTORY: Increasing lung nodules Technique: Spiral CT acquisition of the chest from the thoracic inlet to the upper abdomen without contrast. MQ: [id number] CT Radiation dose: Integrated Dose-length product (DLP) for this visit = 610.41 mGy*cm CT Dose Reduction Employed: Automated exposure control(AEC) and iterative recon Comparison: Chest x-ray 12/05/2023, chest x-ray 11/26/2023 RESULT: Limitations: None. Lines, tubes, and devices: None. Lung parenchyma and airways: The central airways are patent. There are multiple centrilobular nodules within the anterior segment of the right lower lobe, some appearing calcified. No additional pulmonary nodule or focal area of consolidation. Pleural space: No pleural effusion. No pneumothorax. Lower neck, lymph nodes, and mediastinum: The imaged thyroid gland is normal. No mediastinal, supraclavicular, or axillary adenopathy. Suboptimal assessment of the hilar lymph nodes due to lack of IV contrast. However, there is a single nonenlarged calcified right hilar lymph node. Unremarkable esophagus. Heart, pericardium, and thoracic vessels: The thoracic aorta and main pulmonary artery are normal in caliber. The cardiac chambers are normal in size. Mild coronary artery atherosclerotic calcifications are noted, although the study is not optimized for coronary assessment. No pericardial effusion or thickening. Bones and soft tissues: No acute abnormality. Degenerative changes within the spine. Upper abdomen: Multiple calcifications within the spleen. Subcentimeter right renal cyst. Surgically absent gallbladder. Localizer images: No additional contributory findings. IMPRESSION: There are multiple centrilobular pulmonary nodules within the anterior segment of the right lower lobe, some appearing calcified. These findings may represent acute on chronic bronchiolitis. A 3 month follow-up is recommended. Veneer Stapler: MIRELLA Transcribe Date/Time: Dec 05 2023 2:06P Dictated by : CHRISSY RODRIGUEZ, This examination was interpreted and the report reviewed and electronically signed by: CHRISSY RODRIGUEZ, on Dec 05 2023 2:28PM EST I have personally reviewed and confirmed the imaging findings. Impression / Recommendations To optimize physician communication via the electronic health record, the Impression & Recommendations section has been placed at the beginning of this note. ----- Raisa Han APRN.[facility] [place] December 25, 2023 10:09 AM CC: Chayo Hickey [id number] [facility] [id number] Chayo Hickey MD documented in this encounter [facility] 12-24-2023 Telephone encounter Note SWAPNA: 12/05/2023 Donovan In Person - 12/05/2023 Donovan MD - 12/05/2023 Donovan F/U: not scheduled IMPRESSION: José Miguel on cpap (primary encounter diagnosis) Restless legs syndrome (rls) PLAN: Thus, this very pleasant patient reports symptoms that are concerning and symptoms that have interfered with and decreased their qualify of life. I would suggest the following clinical recommendations: Consult Sleep Surgery as he is interested in the Inspire HGN device. We discussed and I provided the indication and the prerequisites. I provided a basic brochure on it. I do not feel an oral appliance would treat the level of apnea he exhibits. I will perform an updated HSAT to make sure he would still be a candidate for Inspire. Continue Methadone q hs. Opiate Use for Severe Treatment Refractory RLS Pain: Methadone are prescribed for Treatment Refractory Severe Restless Legs Syndrome and RLS-Pain and are one of the preferred opiate type medications given their relative safety profile compared to other opiates on the market, reduced controlled substance scheduling, decreased abuse potential and euphoria, long-acting duration, and anti-NMDA properties that can theoretically additionally benefit Severe Treatment Refractory Restless Legs Syndrome. I counseled the patient on the numerous potential side effects of this opiate type medication including the potential for dependence/addiction/constipation/ sedation/impairment, etc. The patient understands and accepts the risks and benefits of using this type of medication to treat their refractory severe disorder. We will periodically check the [place] Automated Rx Reporting System (OARRS) in order to monitor for suspected abuse or diversion of controlled substances. It was a pleasure visiting with you today in the [facility]. It is a privilege to help you with your medical care. Please schedule a follow up appointment after the Sleep ENT appointment. Remember to follow up with your other medical specialists and your primary care provider. If you have any further questions for me regarding the diagnosis or recommendations today, please do not hesitate to send us a [employer] message or call my collaborating Section Laborer nurse Ambrose RN, BSN at [phone] Extension #5. I spent a total time of over 30 minutes on the date of the service on this case. This included preparing to see the patient by reviewing the medical record prior to examining the patient, interviewing the patient face to face in the clinic or virtually via audio and video secure [facility] technology, ordering appropriate medications/tests/procedures, completing clinical documentation of the visit, counseling and educating the patient/family/caregiver, communicating with other health care providers as well as general care coordination. Jaden Man, DO, CBSM, ABSM [facility] 12-24-2023 Miscellaneous Notes SWAPNA: 12/05/2023 Donovan In Person - 12/05/2023 Donovan MD - 12/05/2023 Donovan F/U: not scheduled IMPRESSION: José Miguel on cpap (primary encounter diagnosis) Restless legs syndrome (rls) PLAN: Thus, this very pleasant patient reports symptoms that are concerning and symptoms that have interfered with and decreased their qualify of life. I would suggest the following clinical recommendations: Consult Sleep Surgery as he is interested in the Inspire HGN device. We discussed and I provided the indication and the prerequisites. I provided a basic brochure on it. I do not feel an oral appliance would treat the level of apnea he exhibits. I will perform an updated HSAT to make sure he would still be a candidate for Inspire. Continue Methadone q hs. Opiate Use for Severe Treatment Refractory RLS Pain: Methadone are prescribed for Treatment Refractory Severe Restless Legs Syndrome and RLS-Pain and are one of the preferred opiate type medications given their relative safety profile compared to other opiates on the market, reduced controlled substance scheduling, decreased abuse potential and euphoria, long-acting duration, and anti-NMDA properties that can theoretically additionally benefit Severe Treatment Refractory Restless Legs Syndrome. I counseled the patient on the numerous potential side effects of this opiate type medication including the potential for dependence/addiction/constipation/ sedation/impairment, etc. The patient understands and accepts the risks and benefits of using this type of medication to treat their refractory severe disorder. We will periodically check the [place] Automated Rx Reporting System (OARRS) in order to monitor for suspected abuse or diversion of controlled substances. It was a pleasure visiting with you today in the [facility]. It is a privilege to help you with your medical care. Please schedule a follow up appointment after the Sleep ENT appointment. Remember to follow up with your other medical specialists and your primary care provider. If you have any further questions for me regarding the diagnosis or recommendations today, please do not hesitate to send us a [employer] message or call my collaborating Section Laborer nurse Boggs RN, BSN at [phone] Extension #5. I spent a total time of over 30 minutes on the date of the service on this case. This included preparing to see the patient by reviewing the medical record prior to examining the patient, interviewing the patient face to face in the clinic or virtually via audio and video secure [facility] technology, ordering appropriate medications/tests/procedures, completing clinical documentation of the visit, counseling and educating the patient/family/caregiver, communicating with other health care providers as well as general care coordination. Jaden Man DO, CBSM, ABSM documented in this encounter [facility] 12-06-2023 Telephone encounter Note Phoned patient and reviewed provider's message with him. Patient voiced understanding and directed to scheduling desk to schedule pulmonology consult. Xiomara Lindsay LPN [facility] 12-06-2023 Miscellaneous Notes Phoned patient and reviewed provider's message with him. Patient voiced understanding and directed to scheduling desk to schedule pulmonology consult. Xiomara Lindsay LPN Patient's CT scan shows multiple lung nodules in his right lower lobe with some calcification consistent with bronchiolitis. He has not had symptoms of fever/chills, cough or wheezing so I would not treat with abx or steroids at this point. He is not on rheumatic drugs that would cause something like this and I do not see where Ozempic would cause this. I would recommend f/u with pulmonology for further evaluation of these findings with his SOB. Call with new or worsening symptoms. Please assist with scheduling. If he is having other possible side effects from Ozempic, I would have him hold it for a week and call if side effects do resolve. He may need alternative medication or lower dose. Continue to monitor sugars daily and call with readings >250. documented in this encounter [facility] 12-06-2023 Telephone encounter Note Patient's CT scan shows multiple lung nodules in his right lower lobe with some calcification consistent with bronchiolitis. He has not had symptoms of fever/chills, cough or wheezing so I would not treat with abx or steroids at this point. He is not on rheumatic drugs that would cause something like this and I do not see where Ozempic would cause this. I would recommend f/u with pulmonology for further evaluation of these findings with his SOB. Call with new or worsening symptoms. Please assist with scheduling. If he is having other possible side effects from Ozempic, I would have him hold it for a week and call if side effects do resolve. He may need alternative medication or lower dose. Continue to monitor sugars daily and call with readings >250. [facility] 12-05-2023 History of Present illness Narrative Images from the original note were not included. [facility] Follow up/ Established patient visit Date of last visit : 03/07/2023 The patient presents today to the [facility] [place] [address] [place] for a Sleep Medicine appointment. The medical records available in our [facility] electronic medical record system have been reviewed and pertinent information related to this specific visit are included in this manually typed note. This information will be available to the referring health care provider as well as the patient in the [employer] EMR system. If this is a remote visit, I have communicated my name and active licensure. The patient's identity and physical location were verified at the time of this visit. Either the patient or their legal customer response representative has been informed of the risks and benefits of -- and alternatives to -- treatment through a remote evaluation and consents to proceed with the evaluation remotely. The patient returns today for a scheduled follow up visit in the [facility] [place]. All pertinent information in the medical record for the interval between the last visit in the Sleep Disorders Center and today have been reviewed. The last clinical visit in the Sleep Disorders Center is attached below. Office Visit 08/29/2023 Neurology Frank Lal APRN.CNP Nurse Practitioner Restless legs syndrome (RLS) +2 more Dx F/U 3 Month Reason for Visit Progress Notes Frank Lal APRN.CNP (Nurse Practitioner) Nurse Practitioner Expand All Collapse All [facility] Follow up/ Established patient visit Date of last visit : 05/27/23 The following Impression/Plan was copied and pasted from the patient's last Sleep Disorders Center visit on 05/27/23: IMPRESSION: Restless legs syndrome (rls) (primary encounter diagnosis) [facility] prescription opiate use José Miguel on cpap Dry mouth Nancy Enamorado is a pleasant 52 year old male with PMH of JOSÉ MIGUEL on CPAP, RLS, small fiber polyneuropathy, brachial neuritis, HTN, hypertriglyceridemia, drug induced constipation (presently resolved), hypogonadism, 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 A Home Sleep Test (HST) performed on 09/02/2020 revealed severe JOSÉ MIGUEL (AHI of 36.6) that was associated with a minimum oxygen saturation of 71%; (3% hypopnea scoring; BMI 36.2). A PAP titration study completed on 09/29/2020 showed that a setting of 15 cmH2O normalized the AHI and maintained O2 saturation above 94 %; (3% hypopnea scoring; BMI 36.4). Patient reports compliance with PAP therapy and perceived benefit of treatment, however, he is struggling with his CPAP causing disruption to sleep. More recently, he has been experiencing significant dry mouth with CPAP mask, and download shows high mask leak. Sample Patti fullface mask provided today. Due to his persistent difficulty tolerating PAP therapy, he was evaluated by ENT to discuss Inspire. He was advised that once BMI is under 35, he should message Dr. Riley to have a new sleep study ordered and revisit option of Inspire. With his current weight loss, he has achieved a BMI of 33.6. He wishes to maintain his weight through the holidays before reaching out to Dr. Riley to revisit Inspire option. He has a longstanding h/o RLS, and has been treated in the past with gabapentin, Lyrica, and dopamine agonists without relief. He is now taking methadone 7.5mg nightly, which is controlling his RLS well. He denies SE/ADR with current treatment. He has no h/o iron deficiency. He has vitamin D deficiency which normalized with 12-week course of prescription strength vitamin D. He is compliant with appointments and requirements for controlled substance prescribing. PLAN: JOSÉ MIGUEL: - Continue Auto CPAP at settings of 11-15 cmH2O - Sleep apnea is presently well controlled! Keep up the great work! - Try the new mask to see if this helps with dry mouth: Sample Patti fullface mask (size small / medium) provided today - Remember to clean your mask and equipment regularly, as directed. - Avoid use of ozone display manager, SoClean devices, or UV cleaning devices - Avoid using alcohol or alcohol-containing products on your mask, as this may compromise the integrity of the mask materials and contribute to leak issues - Use only baby shampoo and water, mild dish soap and water, or CPAP-specific wipes to clean your supplies. - You should be eligible for new supplies approximately every 3-6 months, depending on your insurance coverage. Contact your Durable Medical Equipment (DME) company for new supplies as needed. - DME: [facility] Vann - As long as you're maintaining current weight, you can reach out to Dr. Riley to re-discuss Inspire and get updated sleep study RLS: - Continue methadone 7.5mg nightly for RLS symptoms - Electronic prescriptions for May,, Jul provided - In accordance with department regulations, in order for controlled substances to be prescribed, you must be evaluated by a Sleep physician at least once yearly, and must attend at least one in-person visit per year. - Your medications require that you follow-up every 3 months for refills. - Other requirements for use of controlled substances may include urine tox screenings and EKGs/cardiac evaluations. - Utox completed 10/2022 - Physician appt: 03/07/[address] Man - Last in-person visit: 05/27/23 - Follow-up in 3 months with [facility] or Dr. Man - We now have an [employer] EXPERT at the [place] location as well - BRITTANY Huntley APRN.CNP Here for 3 month follow up for RLS, JOSÉ MIGUEL RLS Current treatment : Medication(s) and timing : methadone 5 mg, 1.5 tabs every evening last filled 08/26/23, Methadone has been life changing, only slept a couple of hours a night before it. No RLS symptoms as long as he takes the methadone. He used to have symptoms day and night, was arms as well as legs. He has tried to lower the methadone dose but then gets RLS symptoms. Has constipation, which is worsened with addition of ozempic, but managed with miralax. PDMP website checked and validated. All prescriptions have been APPROPRIATELY filled. No suspicious activity was identified. 08/29/2023 by Frank Lal APRN.CNP Prior meds for RLS: had augmentation on dopamine agonist; gabapentin; lyrica He consistently uses PAP therapy but dislikes it, finds his sleep is more disrupted with PAP. He was evaluated by Dr Riley for Inspire, needed to get BMI less than 35 which he has done. BMI is now 32.69. His plan is to lose 30 more lbs. SLEEP APNEA Sleep apnea type : JOSÉ MIGUEL, Most Recent Apnea-Hypopnea Index (AHI): 36 on HSAT Treatment : PAP therapy DME: [employer] PAP History: Current PAP settin-15 cm H2O. Reviewed objective PAP compliance data: ------- SLEEP HYGIENE QUESTIONS: Bedtime : 10 PM Wake up Time : 6 am Time it takes to fall sleep : quick Number of times patient wakes up per night : none if no PAP, but wakes frequently when using PAP Estimated total sleep time ( in a 24 hour period of time) : 8 Naps : No 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 08/25/2023 Sleep Questions Reason for visit: Sleep apnea Restless Legs Syndrome On average, hours of sleep in 24 hours: 8 Accidents or near accidents due to drowsy drivin 12/26/2022 02/28/2023 08/25/2023 Sullivan Sleepiness Scale Score 4 (No daytime sleepiness) 7 (No daytime sleepiness) 6 (No daytime sleepiness) 12/26/2022 02/28/2023 08/25/2023 PROMIS CAT Sleep Disturbance PROMIS Sleep Disturbance T-Score 46 (within normal limits) 56 (mild) 43 (within normal limits) PROMIS Sleep Disturbance Percentile 66 27 76 12/09/2021 07/29/2022 02/28/2023 Insomnia Severity Index Score 19 14 12 12/26/2022 02/28/2023 08/25/2023 Restless Leg Syndrome Score 18 13 4 08/25/2023 05/26/2023 02/28/2023 PHQ-9 Score 4 6 7 05/26/2023 05/28/2023 08/25/2023 PROMIS Global Health - (T-Scores - the mean of general population = 50. Five points is a clinically meaningful difference.) Physical T-Score 50.8 50.8 57.7 57.7 Mental T-Score 48.3 48.3 50.8 50.8 SLEEP RELATED ROS Review of Systems Constitutional: Negative for fatigue. Respiratory: Negative for difficulty breathing. Cardiovascular: Negative for chest pain and palpitations. Gastrointestinal: Positive for constipation (controlled with miralax). Neurological: Negative for dizziness and memory loss. Psychiatric: Negative for depressed mood. ALLERGIES ALLERGIES Allergen Reactions Metformin Intolerance Muscle aches, increase stool CURRENT MEDICATIONS: CURRENT MEDICATIONS semaglutide (OZEMPIC) 1 mg/dose (4 mg/3 mL) pen Inject 1 mg subcutaneously one time a week. Tadalafil (CIALIS) 5 mg tablet Take 1 tablet by mouth once daily. lisinopril-hydroCHLOROthiazide (ZESTORETIC) 20-12.5 mg per tablet Take 2 tablets by mouth once daily. buPROPion XL (WELLBUTRIN XL) 150 mg 24 hr tablet Take 1 tablet by mouth once daily. blood sugar diagnostic (BLOOD GLUCOSE TEST) test strip Test blood sugar(s) 1-2 times daily. Dx: Type 2 DM - Uncontrolled E11.65 Insulin: No Lancets lancets Test blood sugar(s) 1-2 times daily. Dx: Type 2 DM - Uncontrolled E11.65 Insulin: No CPAP/BIPAP/OTHER Continue Auto CPAP with current settings of 8-15 cm H2O. Lifetime supplies for Auto CPAP, including patient preferred mask, head gear, heated tubing, humidity, filters, chin strap. Dx: Obstructive Sleep Apnea G47.33 DME: [employer] atorvastatin (LIPITOR) 20 mg tablet Take 1 tablet by mouth daily at bedtime. For cholesterol. [START ON 09/25/2023] methadone (DOLOPHINE) 5 mg tablet Take 1.5 tablets by mouth every evening for 30 days. Do not start before September 25, 2023. [START ON 10/26/2023] methadone (DOLOPHINE) 5 mg tablet Take 1.5 tablets by mouth every evening for 30 days. Do not start before October 26, 2023. [START ON 11/26/2023] methadone (DOLOPHINE) 5 mg tablet Take 1.5 tablets by mouth every evening for 30 days. Do not start before November 26, 2023. testosterone cypionate (DEPO-TESTOSTERONE) 200 mg/mL injection Inject 1 mL intramuscularly every 2 weeks for 90 days. 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 PMH of peripheral neuropathy, HTN, HLD, DM2, BPH, obesity, drug induced constipation. He dislikes PAP therapy but is compliant with it. He continues to intentionally lose weight. Plan is to lose 30 more lbs. We can update sleep study once he reaches goal weight. He hopes he won't have JOSÉ MIGUEL. We discussed possibility of oral mandibular advancement device; no dental or jaw issues. He has seen Dr Riley for Claus kramer; at that time he needed to lose weight to get BMI <35 (BMI is now 32). RLS is very well controlled with chronic opioid therapy; he tolerates it well. PLAN: - Continue Auto CPAP at 8-15 cmH2O. - Remember to clean your mask and equipment regularly, as directed. - You should be eligible for new supplies approximately every 3-6 months, depending on your insurance coverage. Contact your [employer] (DME[employer] company for new supplies as needed. UTOX 10/2022 ECG 2020 Rxs send for 3 x 30 days methadone 5 mg 1.5 tablets every evening Has appointment 12/05/[address] Man Follow up with me in 6 mos Frank Lal APRN.STOGY ROLLER Note Details Instructions Radiological Health Specialist Worksheet (Automatic SnapShot taken 08/29/2023), After Visit Summary (Automatic SnapShot taken 08/29/2023) Additional Documentation Vitals: BP 121/73 Pulse 74 Resp 16 Wt 109.3 kg (241 lb) BMI 32.69 kg/m BSA 2.36 m Flowsheets: Patient-Reported Data, MSPT PED Full Patient-Entered Data, Sullivan Sleepiness Scale, [facility] PDMP NARXCARE SCORES, AMB ROOMING INTAKE MINI, Vital Signs Encounter Info: Billing Info, History, Allergies, Detailed Report, Procedural Documentation Communications View All Conversations on this Encounter Pharmacy Benefits No pharmacy benefits eligibility data found for this visit. Travel Screening and History Disease Screening Row Name 08/29/23 0838 08/25/23 2606 Has the Patient Had 2 Falls in the Last Year or 1 Fall with Injury or Currently Using an Ambulatory Assistive Device (Walker, Cane, Wheelchair, Crutches, etc.) No -- Are you having pain associated with your visit today? No -- If you checked off any problems, how difficult have these problems made it for you to do your work, take care of things at home, or get along with other people? -- Not difficult at all Little interest or pleasure in doing things -- 1 Feeling down, depressed, or hopeless -- 1 Trouble falling or staying asleep, or sleeping too much -- 1 Feeling tired or having little energy -- 0 Poor appetite or overeating -- 0 Feeling bad about yourself - or that you are a failure or have let yourself or your family down -- 1 Trouble concentrating on things, such as reading the newspaper or watching television -- 0 Moving or speaking so slowly that other people could have noticed. Or the opposite - being so fidgety or restless that you have been moving around a lot more than usual -- 0 Thoughts that you would be better off , or of hurting yourself in some way -- 0 Row Name 08/25/23 1442 08/25/23 1439 Average sleep last 24 hrs -- 8 Overall, how would you rate the RLS discomfort in your legs or arms? 0 -- Overall, how would you rate the need to move around because of your RLS symptoms? 0 -- Overall, how much relief of your RLS arm or leg discomfort do you get from moving around? 4 -- Overall, how severe is your sleep disturbance from your RLS symptoms? 0 -- How severe is your tiredness or sleepiness from your RLS symptoms? 0 -- Overall, how severe is your RLS as a whole? 0 -- How often do you get RLS symptoms? 0 -- When you have RLS symptoms, how severe are they on an average day? 0 -- Overall, how severe is the impact of your RLS symptoms on your ability to carry out your daily affairs, for example carrying out a satisfactory family, home, social, school or work life? 0 -- How severe is your mood disturbance from your RLS symptoms - for example, angry, depressed, sad, anxious or irritable? 0 -- Row Name 08/25/23 1438 08/25/23 1433 In general, would you say your health is: -- 4 In general, would you say your quality of life is: -- 4 In general, how would you rate your physical health? -- 4 In general, how would you rate your mental health, including your mood and your ability to think? -- 4 In general, how would you rate your satisfaction with your social activities and relationships? -- 4 To what extent are you able to carry out your everyday physical activities such as walking, climbing stairs, carrying groceries, or moving a chair? -- 5 In the past 7 days, how would you rate your pain on average? -- 0 In the past 7 days, how would you rate your fatigue on average? -- 4 In general, please rate how well you carry out your usual social activities and roles. (This includes activities at home, at work and in your community, and responsibilities as a parent, child, spouse, employee, friend, etc.) -- 4 In the past 7 days, how often have you been bothered by emotional problems such as feeling anxious, depressed or irritable? -- 3 Abnormal Sitting and Reading? 2 -- Watching TV? 2 -- Sitting inactive in a public place (e.g a theater or a meeting) 0 -- As a passenger in a car for an hour without a break? 0 -- Lying down to rest in the afternoon when circumstances permit? 2 -- Sitting and talking to someone? 0 -- Sitting quietly after lunch without alcohol? 0 -- In a car, while stopped for a few minutes in traffic? 0 -- Row Name 08/25/23 1427 Has the Patient Had 2 Falls in the Last Year or 1 Fall with Injury or Currently Using an Ambulatory Assistive Device (Walker, Cane, Wheelchair, Crutches, etc.) No Are you having pain associated with your visit today? No Encounter Report Facesheet Report Orders Placed None Medication Changes atorvastatin calcium Patient not taking: Reported on 08/29/2023 20 mg ORAL AT BEDTIME, For cholesterol. Patient not taking: Reported on 08/29/2023 Medication List Visit Diagnoses Restless legs syndrome (RLS) JOSÉ MIGUEL on CPAP [facility] prescription opiate use Problem List Continuation Of Today's Clinical Note: Note that the following is the continuation of today's clinical staff physician note and that the above attached Physician/Advanced Practicing Nurse clinical note or Sleep Study report is for review purposes. At the last visit APAP was continued at 8-15cm. Methadone was conitued at 7.5mg q hs. 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 11/28/2023 Sleep Questions Reason for visit: Sleep apnea Restless Legs Syndrome Percent of nights CPAP used at least 4 hours: 20 Accidents or near accidents due to drowsy drivin 02/28/2023 08/25/2023 11/28/2023 Sullivan Sleepiness Scale Score 7 (No clinically significant daytime sleepiness) 6 (No clinically significant daytime sleepiness) 7 (No clinically significant daytime sleepiness) 02/28/2023 08/25/2023 11/28/2023 PROMIS CAT Sleep Disturbance PROMIS Sleep Disturbance T-Score 56 (mild) 43 (within normal limits) 53 (within normal limits) PROMIS Sleep Disturbance Percentile 27 76 38 12/09/2021 07/29/2022 02/28/2023 Insomnia Severity Index Score 19 14 12 02/28/2023 08/25/2023 11/28/2023 Restless Leg Syndrome Score 13 (Moderate symptoms) 4 (Mild Symptoms) 32 (Very severe symptoms) 05/26/2023 08/25/2023 11/28/2023 PHQ-9 Score 6 4 5 05/28/2023 08/25/2023 11/24/2023 PROMIS Global Health - (T-Scores - the mean of general population = 50. Five points is a clinically meaningful difference.) Physical T-Score 50.8 57.7 57.7 61.9 Mental T-Score 48.3 50.8 50.8 56 PMH, PSH, SH: as before SLEEP RELATED ROS Review of Systems ALLERGIES Allergen Reactions Metformin Intolerance Muscle aches, increase stool CURRENT MEDICATIONS: buPROPion XL (WELLBUTRIN XL) 150 mg 24 hr tablet Take 1 tablet by mouth once daily. testosterone cypionate (DEPO-TESTOSTERONE) 200 mg/mL injection Inject 1 mL intramuscularly every 2 weeks for 90 days. lisinopril-hydroCHLOROthiazide (ZESTORETIC) 20-12.5 mg per tablet Take 2 tablets by mouth once daily. semaglutide (OZEMPIC) 1 mg/dose (4 mg/3 mL) pen Inject 1 mg subcutaneously one time a week. atorvastatin (LIPITOR) 20 mg tablet Take 1 tablet by mouth daily at bedtime. For cholesterol. methadone (DOLOPHINE) 5 mg tablet Take 1.5 tablets by mouth every evening for 30 days. Do not start before September 25, 2023. methadone (DOLOPHINE) 5 mg tablet Take 1.5 tablets by mouth every evening for 30 days. Do not start before October 26, 2023. methadone (DOLOPHINE) 5 mg tablet Take 1.5 tablets by mouth every evening for 30 days. Do not start before November 26, 2023. Tadalafil (CIALIS) 5 mg tablet Take 1 tablet by mouth once daily. blood sugar diagnostic (BLOOD GLUCOSE TEST) test strip Test blood sugar(s) 1-2 times daily. Dx: Type 2 DM - Uncontrolled E11.65 Insulin: No Lancets lancets Test blood sugar(s) 1-2 times daily. Dx: Type 2 DM - Uncontrolled E11.65 Insulin: No CPAP/BIPAP/OTHER Continue Auto CPAP with current settings of 8-15 cm H2O. Lifetime supplies for Auto CPAP, including patient preferred mask, head gear, heated tubing, humidity, filters, chin strap. Dx: Obstructive Sleep Apnea G47.33 DME: [facility] Conrad PHYSICAL EXAMINATION: Mental Status Examination: General: No acute distress Alertness: Alert Orientation: Oriented to person, place and time Eye contact: Good Mental attitude: Positive Historian: Good Constitutional: Pleasant and cooperative Speech Rate: Normal Speech Tone: Normal Speech Articulation: Normal Speech Spontaneity: Normal Bradyphrenia: None Loose Associations: None Thought Processes: Normal Tangential: No Circumstantial: No Abstraction: Seems normal Computation: Seems relatively normal Suicidal thoughts: None reported Homicidal thoughts: None Hallucinations (Auditory, visual, gustatory): None Delusions: None EPS: None AIM Scale: 0 Violent ideations: None Paranoid thoughts: None exhibited Guarded: No Obsessions: None Phobias: None Judgement: Good Insight: Good Fund of Knowledge: Intact Mood: Euthymic Affect: Reactive Physical Examination: Note that no supplement oxygen is in use No acute distress; consistent with age; the patient appears slightly sleepy at the time of the appointment IMPRESSION: José Miguel on cpap (primary encounter diagnosis) Restless legs syndrome (rls) PLAN: Thus, this very pleasant patient reports symptoms that are concerning and symptoms that have interfered with and decreased their qualify of life. I would suggest the following clinical recommendations: Consult Sleep Surgery as he is interested in the Inspire HGN device. We discussed and I provided the indication and the prerequisites. I provided a basic brochure on it. I do not feel an oral appliance would treat the level of apnea he exhibits. I will perform an updated HSAT to make sure he would still be a candidate for Inspire. Continue Methadone q hs. Opiate Use for Severe Treatment Refractory RLS Pain: Methadone are prescribed for Treatment Refractory Severe Restless Legs Syndrome and RLS-Pain and are one of the preferred opiate type medications given their relative safety profile compared to other opiates on the market, reduced controlled substance scheduling, decreased abuse potential and euphoria, long-acting duration, and anti-NMDA properties that can theoretically additionally benefit Severe Treatment Refractory Restless Legs Syndrome. I counseled the patient on the numerous potential side effects of this opiate type medication including the potential for dependence/addiction/constipation/ sedation/impairment, etc. The patient understands and accepts the risks and benefits of using this type of medication to treat their refractory severe disorder. We will periodically check the [place] Automated Rx Reporting System (OARRS) in order to monitor for suspected abuse or diversion of controlled substances. It was a pleasure visiting with you today in the [facility]. It is a privilege to help you with your medical care. Please schedule a follow up appointment after the Sleep ENT appointment. Remember to follow up with your other medical specialists and your primary care provider. If you have any further questions for me regarding the diagnosis or recommendations today, please do not hesitate to send us a [employer] message or call my collaborating Section Laborer nurse Boggs RN, BSN at [phone] Extension #[phone]. I spent a total time of over 30 minutes on the date of the service on this case. This included preparing to see the patient by reviewing the medical record prior to examining the patient, interviewing the patient face to face in the clinic or virtually via audio and video secure [facility] technology, ordering appropriate medications/tests/procedures, completing clinical documentation of the visit, counseling and educating the patient/family/caregiver, communicating with other health care providers as well as general care coordination. Jaden Man DO, CBSM, ABSM Associate Cushion Maker, Sleep Medicine Fellowship Core Faculty, [employer] Sleep Medicine Fellowship Chief Experience Officer, Sleep Medicine Center Clinical Staff Physician, Sleep Medicine [facility] Department of Neurology Department of Psychiatry [address] [place], [place] [address] [place] documented in this encounter [facility] 12-05-2023 History of Present illness Narrative Radiology Service Progress Note PATIENT NAME: Nancy Enamorado DATE OF SERVICE: December 05, 2023 TIME: 1:00 PM PATIENT IDENTITY VERIFICATION COMPLETED USING TWO (2) IDENTIFIERS: Name and Date of confirmed by patient verbally. FALL SCREENING: Has the patient had 2 falls in the last year or 1 fall with injury or currently using an Ambulatory Assistive Device (Walker, Cane, Wheelchair, Crutches, etc.)? No PATIENT GENDER DATA: Male PATIENT RELEVANT IMPLANT DATA REVIEWED: Not Applicable PATIENT PRESENTS WITH AN IMPLANTABLE OR ATTACHED METALLURGY TEACHER: No RADIOLOGY DEPARTMENT: CT; Exam(s) Completed: Chest PERIPHERAL IV DATA: Not applicable SIGNED BY: Meche Iglesias December 05, 2023 1:00 PM documented in this encounter [facility] 12-05-2023 Note HNO ID: [id number] Author: TIFFANY QUESADA Tech Service: ? Author Type: Technologist Type: Progress Notes Filed: 12/05/2023 13:03 Note Text: Radiology Service Progress Note PATIENT NAME: Nancy Enamorado DATE OF SERVICE: December 05, 2023 TIME: 1:00 PM PATIENT IDENTITY VERIFICATION COMPLETED USING TWO (2) IDENTIFIERS: Name and Date of confirmed by patient verbally. FALL SCREENING: Has the patient had 2 falls in the last year or 1 fall with injury or currently using an Ambulatory Assistive Device (Walker, Cane, Wheelchair, Crutches, etc.)? No PATIENT GENDER DATA: Male PATIENT RELEVANT IMPLANT DATA REVIEWED: Not Applicable PATIENT PRESENTS WITH AN IMPLANTABLE OR ATTACHED METALLURGY TEACHER: No RADIOLOGY DEPARTMENT: CT; Exam(s) Completed: Chest PERIPHERAL IV DATA: Not applicable SIGNED BY: Meche Iglesias December 05, 2023 1:00 PM [facility] 12-05-2023 Telephone encounter Note Reviewed. [facility] 12-05-2023 Miscellaneous Notes Reviewed. Spoke with pt and information listed below given. Pt verbalizes understanding. Pt denies any new symptoms. Pt transferred to shake table operator to get CT scheduled. Blanca Lanier LPN Patient's repeat chest xray shows worsening nodules in the right lower lung. Recommend additional imaging with CT scan to further evaluate. Has he developed any new symptoms such as fever/chills, cough, wheezing, SOB, chest pain or chest congestion? documented in this encounter [facility] 12-05-2023 Telephone encounter Note Spoke with pt and information listed below given. Pt verbalizes understanding. Pt denies any new symptoms. Pt transferred to shake table operator to get CT scheduled. Blanca Lanier LPN [facility] 12-05-2023 Telephone encounter Note Patient's repeat chest xray shows worsening nodules in the right lower lung. Recommend additional imaging with CT scan to further evaluate. Has he developed any new symptoms such as fever/chills, cough, wheezing, SOB, chest pain or chest congestion? [facility] 12-05-2023 History of Present illness Narrative Radiology Service Progress Note PATIENT NAME: Nancy Enamorado DATE OF SERVICE: December 05, 2023 TIME: 8:38 AM PATIENT IDENTITY VERIFICATION COMPLETED USING TWO (2) IDENTIFIERS: Name and Date of confirmed by patient verbally. FALL SCREENING: Has the patient had 2 falls in the last year or 1 fall with injury or currently using an Ambulatory Assistive Device (Walker, Cane, Wheelchair, Crutches, etc.)? No PATIENT GENDER DATA: Male PATIENT RELEVANT IMPLANT DATA REVIEWED: Yes PATIENT PRESENTS WITH AN IMPLANTABLE OR ATTACHED METALLURGY TEACHER: No RADIOLOGY DEPARTMENT: General X-ray: Exam(s) Completed: Chest X-Ray PERIPHERAL IV DATA: Not applicable SIGNED BY: RT Leighton(R) December 05, 2023 8:38 AM documented in this encounter [facility] 12-03-2023 Telephone encounter Note Spoke with pt and information listed below given. Pt verbalizes understanding. Blanca Lanier LPN [facility] 12-03-2023 Miscellaneous Notes Spoke with pt and information listed below given. Pt verbalizes understanding. Blanca Lanier LPN Left a message for pt to call the office and ask to speak to a nurse. Blanca Lanier LPN ----- Message from Chayo Hickey MD sent at 12/03/2023 9:41 AM EDT ----- Normal labs. Testosterone level in good range. No change to regimen. documented in this encounter [facility] 12-03-2023 Telephone encounter Note Left a message for pt to call the office and ask to speak to a nurse. Blanca Lanier LPN [facility] 12-03-2023 Telephone encounter Note ----- Message from Chayo Hickey MD sent at 12/03/2023 9:41 AM EDT ----- Normal labs. Testosterone level in good range. No change to regimen. [facility] 11-26-2023 Telephone encounter Note Spoke with pt and information listed below given. Pt verbalizes understanding. Blanca Lanier LPN [facility] 11-26-2023 Miscellaneous Notes Spoke with pt and information listed below given. Pt verbalizes understanding. Blanca Lanier LPN Normal chest xray aside from possible shadow vs <1 cm nodule in right lower lung. Recommend repeat CXR in 2 weeks to re-evaluate. documented in this encounter [facility] 11-26-2023 Telephone encounter Note Normal chest xray aside from possible shadow vs <1 cm nodule in right lower lung. Recommend repeat CXR in 2 weeks to re-evaluate. [facility] 11-26-2023 History of Present illness Narrative Radiology Service Progress Note PATIENT NAME: Nancy Enamorado DATE OF SERVICE: November 26, 2023 TIME: 8:23 AM PATIENT IDENTITY VERIFICATION COMPLETED USING TWO (2) IDENTIFIERS: Name and Date of confirmed by patient verbally. FALL SCREENING: Has the patient had 2 falls in the last year or 1 fall with injury or currently using an Ambulatory Assistive Device (Walker, Cane, Wheelchair, Crutches, etc.)? No PATIENT GENDER DATA: Male PATIENT RELEVANT IMPLANT DATA REVIEWED: Not Applicable PATIENT PRESENTS WITH AN IMPLANTABLE OR ATTACHED METALLURGY TEACHER: No RADIOLOGY DEPARTMENT: General X-ray: Exam(s) Completed: Chest X-Ray PERIPHERAL IV DATA: Not applicable SIGNED BY: RT Delmy(R) November 26, 2023 8:23 AM documented in this encounter [facility] 11-25-2023 History of Present illness Narrative Chief Complaint Patient presents with: Dizziness: Patient reports he will get sweaty and then nauseated. Has been going on about 10 days. Patient reports blood sugars have been good. HPI Nancy Enamorado is a 52 year old male who presents here today for Above Complaints.. Patient complaining of 10 days of nausea with exertion, episodes of sweating, and almost like he has vertigo but the room does spin. Seems to be worse in the morning than at night. Has checked his sugars with typical readings in the 80-90's. Tolerating diet with several small meals per day. Has not had a change in his diet or started any new medications or supplements. Notes occasional pain in his chest with swallowing, but denies chest pain with exertion. Denies fever/chills, SOB, chest pain, palpitations, LE edema, slurred speech, vision changes, headache, numbness/tingling, weakness. Overdue to recheck his testosterone level. He is group home between shots today. Past medical history, appointments, medications, allergies reviewed. Previous Medical History PAST MEDICAL HISTORY Diagnosis Date Achilles tendinosis of left lower extremity s/p repair BPH (benign prostatic hyperplasia) Diabetes mellitus type II (HCC) Erectile dysfunction Heel spur, left Hypertension Hypertriglyceridemia Hypogonadism in male Idiopathic neuropathy Lipoma of right shoulder 05/2023 JOSÉ MIGUEL (obstructive sleep apnea) 08/2020 RLS (restless legs syndrome) Dr Man Thrombosed hemorrhoids 11/2021 Vitamin D deficiency Previous Surgical History PAST SURGICAL HISTORY Procedure Laterality Date APPENDECTOMY ARTHROSCOPY KNEE DIAGNOSTIC W/WO SYNOVIAL BX SPX Left Arthroscopy, knee BX OF BREAST; INCISIONAL Right 06/12/[address] right posterior shoulder by Dr. Ball CHOLECYSTECTOMY HX HERNIA REPAIR HX Bilateral inguinal hernia, congenital NEUROPLASTY &/TRANSPOS MEDIAN NRV CARPAL TUNNE Carpal tunnel decomp bilateral PAST SURGICAL HISTORY OF 07/30/2019 repair bone spur achilles left foot PAST SURGICAL HISTORY OF Left 08/21/2021 achilles tendon repair PAST SURGICAL HISTORY OF 12/05/2021 hemorrhoidectomy PAST SURGICAL HISTORY OF 06/12/2023 right shoulder lipoma removed SKIN BIOPSY HX TONSILLECTOMY HX TONSILLECTOMY PRIMARY/SECONDARY <AGE 12 Tonsillectomy Family History FAMILY HISTORY Problem Relation Age of Onset COPD Mother Cancer Mother lung Heart disease Father Cancer Father lung, liver, kidney, colon Depression Father Anxiety disorder Father other (cancer) Father Psychiatry Brother Cancer Brother Multiple Sclerosis Daughter other (apraxia) Son Heart disease Maternal Grandmother Heart disease Maternal Grandfather Heart disease Paternal Grandmother Heart disease Paternal Grandfather Patient Allergies ALLERGIES Allergen Reactions Metformin Intolerance Muscle aches, increase stool Current Medications Current Outpatient Medications on File Prior to Visit Medication Sig buPROPion XL (WELLBUTRIN XL) 150 mg 24 hr tablet Take 1 tablet by mouth once daily. testosterone cypionate (DEPO-TESTOSTERONE) 200 mg/mL injection Inject 1 mL intramuscularly every 2 weeks for 90 days. lisinopril-hydroCHLOROthiazide (ZESTORETIC) 20-12.5 mg per tablet Take 2 tablets by mouth once daily. semaglutide (OZEMPIC) 1 mg/dose (4 mg/3 mL) pen Inject 1 mg subcutaneously one time a week. atorvastatin (LIPITOR) 20 mg tablet Take 1 tablet by mouth daily at bedtime. For cholesterol. methadone (DOLOPHINE) 5 mg tablet Take 1.5 tablets by mouth every evening for 30 days. Do not start before October 26, 2023. [START ON 11/26/2023] methadone (DOLOPHINE) 5 mg tablet Take 1.5 tablets by mouth every evening for 30 days. Do not start before November 26, 2023. Tadalafil (CIALIS) 5 mg tablet Take 1 tablet by mouth once daily. blood sugar diagnostic (BLOOD GLUCOSE TEST) test strip Test blood sugar(s) 1-2 times daily. Dx: Type 2 DM - Uncontrolled E11.65 Insulin: No Lancets lancets Test blood sugar(s) 1-2 times daily. Dx: Type 2 DM - Uncontrolled E11.65 Insulin: No CPAP/BIPAP/OTHER Continue Auto CPAP with current settings of 8-15 cm H2O. Lifetime supplies for Auto CPAP, including patient preferred mask, head gear, heated tubing, humidity, filters, chin strap. Dx: Obstructive Sleep Apnea G47.33 DME: [facility] methadone (DOLOPHINE) 5 mg tablet Take 1.5 tablets by mouth every evening for 30 days. Do not start before September 25, 2023. No current facility-administered medications on file prior to visit. Social History Social History Tobacco Use Smoking status: Never Smokeless tobacco: Never Vaping Use Vaping Use: Never used Substance Use Topics Alcohol use: Yes Alcohol/week: 2.0 standard drinks of alcohol Types: 2 Cans of beer per week Drug use: Never Review of Symptoms REVIEW OF SYSTEMS See HPI EXAM: BP 116/74 Pulse 90 Temp 36.3 C (97.4 F) Resp 16 Wt 110.8 kg (244 lb 3.2 oz) SpO2 97% BMI 33.12 kg/m BP w/Orthostatic Vitals Date and Time Orthostatic BP Orthostatic Pulse BP Pulse BP Position BP Site BP Cuff Size 11/25/23 0912 130/80 86 -- -- Standing Right Arm Large Adult 11/25/23 0911 130/84 83 -- -- Sitting Right Arm Large Adult 11/25/23 0910 122/84 76 -- -- Supine Right Arm Large Adult 11/25/23 0810 -- -- 116/74 90 -- -- -- Peak Flow Date and Time PF Resp 11/25/23 0810 -- 16 General Appearance: Well appearing, alert, in no acute distress, well-hydrated, well nourished.. Skin: Skin color, texture, turgor normal, no suspicious rashes or lesions. Ears: External ears normal, canals clear, TMs normal. Neck: Supple, no adenopathy; thyroid symmetric, normal size, no bruits. Lungs: Lungs clear to auscultation. No wheezing, rhonchi, rales.. Heart: RRR without murmur, gallop, or rubs. No ectopy. Abdomen: Normal abdominal exam, Abdomen soft, non-tender. Bowel sounds normal. No masses, organomegaly. Extremities: No deformities, edema, skin discoloration, clubbing or cyanosis. Good capillary refill. . Neurologic: Negative findings: speech normal, mental status intact, cranial nerves 2-12 intact, muscle tone normal, muscle strength normal, sensation to light touch and pinprick normal, reflexes normal and symmetric, enoc halpike negative. Health Maintenance List Dilated Retinal Exam Never done Colorectal Cancer Screening due on 02/17/2021 Behavioral Health Screening Never done Hepatitis B Vaccine(1 of 3 - 19+ 3-dose series) due on 08/28/2024 Covid-19 Vaccine(2022- season) due on 08/28/2024 HbA1C due on 02/23/2024 Urine Albumin:Creatinine Ratio due on 03/03/2024 LDL Cholesterol due on 08/22/2024 Diabetic Foot Exam due on 08/28/2024 Annual PCP Team Chronic Disease Visit due on 08/28/2024 BP Controlled (<130/80) due on 08/28/2024 DTaP,Tdap,Td Vaccine(2 - Td or Tdap) due on 03/10/2030 Influenza Vaccine Completed Hepatitis C Screening Completed HIV Screening Completed Shingrix Vaccine Completed Pneumococcal Vaccine Completed Data reviewed Latest Ref Rng 08/23/2023 Protein, Total 6.3 - 8.0 g/dL 7.2 Albumin 3.9 - 4.9 g/dL 4.3 Calcium 8.5 - 10.2 mg/dL 9.4 Bilirubin, Total 0.2 - 1.3 mg/dL 0.7 Alkaline Phosphatase 38 - 113 U/L 80 AST 14 - 40 U/L 17 ALT 10 - 54 U/L 13 Glucose 74 - 99 mg/dL 96 BUN 9 - 24 mg/dL 11 Creatinine 0.73 - 1.22 mg/dL 1.22 Sodium 136 - 144 mmol/L 135 (L) Potassium 3.7 - 5.1 mmol/L 3.8 Chloride 97 - 105 mmol/L 99 CO2 22 - 30 mmol/L 25 Anion Gap 9 - 18 mmol/L 11 eGFR >=60 mL/min/1.73m 71 Cholesterol, Total <200 mg/dL 180 Triglyceride <150 mg/dL 230 (H) HDL Cholesterol >39 mg/dL 32 (L) Non HDL Cholesterol <130 mg/dL 148 (H) Fasting Time hrs 13 VLDL Cholesterol <30 mg/dL 46 (H) TC:HDL Ratio <5.10 5.63 (H) LDL Cholesterol <100 mg/dL 102 (H) LDL:HDL Ratio <2.54 3.19 (H) Hemoglobin A1C 4.3 - 5.6 % 5.3 Estimated Average Glucose mg/dL 105 Legend: (L) Low (H) High EKG: NSR at 76 bpm ASSESSMENT/PLAN: 1. Nausea - ICD9: 787.02, ICD10: R11.0 (primary diagnosis) Unknown etiology for his nausea and diaphoresis with exertion, but my main concern would be cardiac with his multiple risk factors. Obtain labs and imaging as ordered. Discussed pushing PO fluids, eating regular meals, checking sugars with symptoms. Red flags for re-assessment reviewed with patient in detail. Will call with results. - ECG COMPLETE - COMPLETE BLOOD COUNT AND DIFFERENTIAL - COMPREHENSIVE METABOLIC PANEL - ECHO - PERFLUTREN LIPID MICROSPHERES 1.1 MG/ML INJECTION IN NS 10 ML - SODIUM CHLORIDE 0.9 % (FLUSH) INJECTION SYRINGE - EXERCISE STRESS ECG (WITHOUT IMAGING) - XR CHEST 2V FRONTAL/LAT 2. Diaphoresis - ICD9: 780.8, ICD10: R61 See above. - ECG COMPLETE - COMPLETE BLOOD COUNT AND DIFFERENTIAL - COMPREHENSIVE METABOLIC PANEL - ECHO - PERFLUTREN LIPID MICROSPHERES 1.1 MG/ML INJECTION IN NS 10 ML - SODIUM CHLORIDE 0.9 % (FLUSH) INJECTION SYRINGE - EXERCISE STRESS ECG (WITHOUT IMAGING) - XR CHEST 2V FRONTAL/LAT 3. Dizziness - ICD9: 780.4, ICD10: R42 Negative neurologic exam. See above. Red flags for re-assessment reviewed with patient in detail. Chayo Hickey MD documented in this encounter [facility] 11-24-2023 Telephone encounter Note Images from the original note were not included. [facility] 11-24-2023 Miscellaneous Notes Images from the original note were not included. documented in this encounter [facility] 10-14-2023 Telephone encounter Note Pt notified of results via [employer] [facility]. Marilee English Ma [facility] 10-14-2023 Miscellaneous Notes Pt notified of results via mychart. Marilee English Ma Rx sent. Patient due for repeat testosterone level. Come in for blood work 1 week after next injection. Patient has been identified by name and date of : Yes, Provider Chayo Hickey MD Date October 13, 2023 Time 10:06 AM Patient phones for refill(s): Requested Prescriptions Pending Prescriptions Disp Refills testosterone cypionate (DEPO-TESTOSTERONE) 200 mg/mL injection 6 mL 0 Sig: Inject 1 mL intramuscularly every 2 weeks for 90 days. Date of last office visit in primary care: 08/29/2023 Date of next office visit in primary care: 03/01/2024 Please advise. Thank you. Marilee English MA. documented in this encounter [facility] 10-13-2023 Telephone encounter Note Rx sent. Patient due for repeat testosterone level. Come in for blood work 1 week after next injection. [facility] 10-13-2023 Telephone encounter Note Patient has been identified by name and date of : Yes, Provider Chayo Hickey MD Date October 13, 2023 Time 10:06 AM Patient phones for refill(s): Requested Prescriptions Pending Prescriptions Disp Refills testosterone cypionate (DEPO-TESTOSTERONE) 200 mg/mL injection 6 mL 0 Sig: Inject 1 mL intramuscularly every 2 weeks for 90 days. Date of last office visit in primary care: 08/29/2023 Date of next office visit in primary care: 03/01/2024 Please advise. Thank you. Marilee English MA. [facility] 08-29-2023 History of Present illness Narrative Images from the original note were not included. 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 A Home Sleep Test (HST) performed on 09/02/2020 revealed severe JOSÉ MIGUEL (AHI of 36.6) that was associated with a minimum oxygen saturation of 71%; (3% hypopnea scoring; BMI 36.2). A PAP titration study completed on 09/29/2020 showed that a setting of 15 cmH2O normalized the AHI and maintained O2 saturation above 94 %; (3% hypopnea scoring; BMI 36.4). Patient reports compliance with PAP therapy and perceived benefit of treatment, however, he is struggling with his CPAP causing disruption to sleep. More recently, he has been experiencing significant dry mouth with CPAP mask, and download shows high mask leak. Sample Patti fullface mask provided today. Due to his persistent difficulty tolerating PAP therapy, he was evaluated by ENT to discuss Inspire. He was advised that once BMI is under 35, he should message Dr. Riley to have a new sleep study ordered and revisit option of Inspire. With his current weight loss, he has achieved a BMI of 33.6. He wishes to maintain his weight through the holidays before reaching out to Dr. Riley to revisit Inspire option. He has a longstanding h/o RLS, and has been treated in the past with gabapentin, Lyrica, and dopamine agonists without relief. He is now taking methadone 7.5mg nightly, which is controlling his RLS well. He denies SE/ADR with current treatment. He has no h/o iron deficiency. He has vitamin D deficiency which normalized with 12-week course of prescription strength vitamin D. He is compliant with appointments and requirements for controlled substance prescribing. PLAN: JOSÉ MIGUEL: - Continue Auto CPAP at settings of 11-15 cmH2O - Sleep apnea is presently well controlled! Keep up the great work! - Try the new mask to see if this helps with dry mouth: Sample Patti fullface mask (size small / medium) provided today - Remember to clean your mask and equipment regularly, as directed. - Avoid use of ozone display manager, SoClean devices, or UV cleaning devices - Avoid using alcohol or alcohol-containing products on your mask, as this may compromise the integrity of the mask materials and contribute to leak issues - Use only baby shampoo and water, mild dish soap and water, or CPAP-specific wipes to clean your supplies. - You should be eligible for new supplies approximately every 3-6 months, depending on your insurance coverage. Contact your Durable Medical Equipment (DME) company for new supplies as needed. - DME: [facility] - As long as you're maintaining current weight, you can reach out to Dr. Riley to re-discuss Inspire and get updated sleep study RLS: - Continue methadone 7.5mg nightly for RLS symptoms - Electronic prescriptions for May, Jun, Jul provided - In accordance with department regulations, in order for controlled substances to be prescribed, you must be evaluated by a Sleep physician at least once yearly, and must attend at least one in-person visit per year. - Your medications require that you follow-up every 3 months for refills. - Other requirements for use of controlled substances may include urine tox screenings and EKGs/cardiac evaluations. - Utox completed 10/2022 - Physician appt: 03/07/[address] Man - Last in-person visit: 05/27/23 - Follow-up in 3 months with [facility] or Dr. Man - We now have an FIREARMS EXPERT at the [place] location as well - BRITTANY Huntley APRN.CNP Here for 3 month follow up for RLS, JOSÉ MIGUEL RLS Current treatment : Medication(s) and timing : methadone 5 mg, 1.5 tabs every evening last filled 08/26/23, Methadone has been life changing, only slept a couple of hours a night before it. No RLS symptoms as long as he takes the methadone. He used to have symptoms day and night, was arms as well as legs. He has tried to lower the methadone dose but then gets RLS symptoms. Has constipation, which is worsened with addition of ozempic, but managed with miralax. PDMP website checked and validated. All prescriptions have been APPROPRIATELY filled. No suspicious activity was identified. 08/29/2023 by Frank Lal APRN.CNP Prior meds for RLS: had augmentation on dopamine agonist; gabapentin; lyrica He consistently uses PAP therapy but dislikes it, finds his sleep is more disrupted with PAP. He was evaluated by Dr Riley for Inspire, needed to get BMI less than 35 which he has done. BMI is now 32.69. His plan is to lose 30 more lbs. SLEEP APNEA Sleep apnea type : JOSÉ MIGUEL, Most Recent Apnea-Hypopnea Index (AHI): 36 on HSAT Treatment : PAP therapy DME: [employer] PAP History: Current PAP settin-15 cm H2O. Reviewed objective PAP compliance data: ------- SLEEP HYGIENE QUESTIONS: Bedtime : 10 PM Wake up Time : 6 am Time it takes to fall sleep : quick Number of times patient wakes up per night : none if no PAP, but wakes frequently when using PAP Estimated total sleep time ( in a 24 hour period of time) : 8 Naps : No 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 08/25/2023 Sleep Questions Reason for visit: Sleep apnea Restless Legs Syndrome On average, hours of sleep in 24 hours: 8 Accidents or near accidents due to drowsy drivin 12/26/2022 02/28/2023 08/25/2023 Sullivan Sleepiness Scale Score 4 (No daytime sleepiness) 7 (No daytime sleepiness) 6 (No daytime sleepiness) 12/26/2022 02/28/2023 08/25/2023 PROMIS CAT Sleep Disturbance PROMIS Sleep Disturbance T-Score 46 (within normal limits) 56 (mild) 43 (within normal limits) PROMIS Sleep Disturbance Percentile 66 27 76 12/09/2021 07/29/2022 02/28/2023 Insomnia Severity Index Score 19 14 12 12/26/2022 02/28/2023 08/25/2023 Restless Leg Syndrome Score 18 13 4 08/25/2023 05/26/2023 02/28/2023 PHQ-9 Score 4 6 7 05/26/2023 05/28/2023 08/25/2023 PROMIS Global Health - (T-Scores - the mean of general population = 50. Five points is a clinically meaningful difference.) Physical T-Score 50.8 50.8 57.7 57.7 Mental T-Score 48.3 48.3 50.8 50.8 SLEEP RELATED ROS Review of Systems Constitutional: Negative for fatigue. Respiratory: Negative for difficulty breathing. Cardiovascular: Negative for chest pain and palpitations. Gastrointestinal: Positive for constipation (controlled with miralax). Neurological: Negative for dizziness and memory loss. Psychiatric: Negative for depressed mood. ALLERGIES Allergen Reactions Metformin Intolerance Muscle aches, increase stool CURRENT MEDICATIONS: semaglutide (OZEMPIC) 1 mg/dose (4 mg/3 mL) pen Inject 1 mg subcutaneously one time a week. Tadalafil (CIALIS) 5 mg tablet Take 1 tablet by mouth once daily. lisinopril-hydroCHLOROthiazide (ZESTORETIC) 20-12.5 mg per tablet Take 2 tablets by mouth once daily. buPROPion XL (WELLBUTRIN XL) 150 mg 24 hr tablet Take 1 tablet by mouth once daily. blood sugar diagnostic (BLOOD GLUCOSE TEST) test strip Test blood sugar(s) 1-2 times daily. Dx: Type 2 DM - Uncontrolled E11.65 Insulin: No Lancets lancets Test blood sugar(s) 1-2 times daily. Dx: Type 2 DM - Uncontrolled E11.65 Insulin: No CPAP/BIPAP/OTHER Continue Auto CPAP with current settings of 8-15 cm H2O. Lifetime supplies for Auto CPAP, including patient preferred mask, head gear, heated tubing, humidity, filters, chin strap. Dx: Obstructive Sleep Apnea G47.33 DME: [facility] atorvastatin (LIPITOR) 20 mg tablet Take 1 tablet by mouth daily at bedtime. For cholesterol. [START ON 09/25/2023] methadone (DOLOPHINE) 5 mg tablet Take 1.5 tablets by mouth every evening for 30 days. Do not start before September 25, 2023. [START ON 10/26/2023] methadone (DOLOPHINE) 5 mg tablet Take 1.5 tablets by mouth every evening for 30 days. Do not start before October 26, 2023. [START ON 11/26/2023] methadone (DOLOPHINE) 5 mg tablet Take 1.5 tablets by mouth every evening for 30 days. Do not start before November 26, 2023. testosterone cypionate (DEPO-TESTOSTERONE) 200 mg/mL injection Inject 1 mL intramuscularly every 2 weeks for 90 days. PHYSICAL EXAMINATION: Vital Signs: BP 121/73 Pulse 74 Resp 16 Wt 109.3 kg (241 lb) BMI 32.69 kg/m PHYSICAL EXAM: General appearance: pleasant, NAD Mental status: alert and oriented, able to provide own history Constitutional: WNL Skin: No visible rashes on exposed skin Neuro: No focal deficits observed, no tremors IMPRESSION: Restless legs syndrome (rls) (primary encounter diagnosis) José Miguel on cpap [facility] prescription opiate use Nancy Enamorado is a 52 year old male with refractory RLS now effectively treated with methadone, severe JOSÉ MIGUEL treated with CPAP. PMH of peripheral neuropathy, HTN, HLD, DM2, BPH, obesity, drug induced constipation. He dislikes PAP therapy but is compliant with it. He continues to intentionally lose weight. Plan is to lose 30 more lbs. We can update sleep study once he reaches goal weight. He hopes he won't have JOSÉ MIGUEL. We discussed possibility of oral mandibular advancement device; no dental or jaw issues. He has seen Dr Riley for Inspire kikoal; at that time he needed to lose weight to get BMI <35 (BMI is now 32). RLS is very well controlled with chronic opioid therapy; he tolerates it well. PLAN: - Continue Auto CPAP at 8-15 cmH2O. - Remember to clean your mask and equipment regularly, as directed. - You should be eligible for new supplies approximately every 3-6 months, depending on your insurance coverage. Contact your Durable Medical Equipment (DME) company for new supplies as needed. UTOX 10/2022 ECG 2020 Rxs send for 3 x 30 days methadone 5 mg 1.5 tablets every evening Has appointment 12/05/[address] Man Follow up with me in 6 mos Frank Lal APRN.STOGY ROLLER documented in this encounter [facility] 08-29-2023 History of Present illness Narrative 08/28/2023 Patient presents with: F/U 3 Month SUBJECTIVE: This is a 52 year old that is here today for Above Complaints. Since last office visit has been in good health without ER visits or hospitalizations. DIABETES MELLITUS: Since our last visit he denies excessive thirst or increased frequency of urination, chest pain or dyspnea , numbness, tingling or pain in extremities, new or unusual visual symptoms, low sugar/hypoglycemic reactions, lightheadedness/dizziness. Follows a diabetic diet most of the time. He is compliant with medication(s) and is tolerating med(s) without any side effects. He reports checking his glucose on a once a day schedule with sugars in the fasting less than 100 range. Patient's last HgA1C was Hemoglobin A1C (%) Date Value 08/23/2023 5.3 03/03/2023 7.4 07/06/2021 6.0 08/11/2020 5.8 Hemoglobin A1C (POCT) (%) Date Value 05/30/2023 5.9 ) Last Ophthalmology exam goes next month JOSÉ MIGUEL: follows with neurology. Has follow-up scheduled today Depression: taking Wellbutrin as prescribed without side effects. Denies depressive symptoms, SI, HI or insomnia HTN: Patient is compliant with meds Yes Monitors bp at home: occasional . Denies side effects: No. Chest pain: No. Dyspnea: No. Edema: No. Palpitations: No. Syncope: No. Headache: No. Dizziness: No. Taking Testosterone as prescribed without side effects. PAST MEDICAL HISTORY Diagnosis Date Achilles tendinosis of left lower extremity s/p repair BPH (benign prostatic hyperplasia) Diabetes mellitus type II (HCC) Erectile dysfunction Heel spur, left Hypertension Hypertriglyceridemia Hypogonadism in male Idiopathic neuropathy Lipoma of right shoulder 05/2023 JOSÉ MIGUEL (obstructive sleep apnea) 08/2020 RLS (restless legs syndrome) Dr Man Thrombosed hemorrhoids 11/2021 Vitamin D deficiency ALLERGIES Metformin MEDICATIONS Current Outpatient Medications Medication Sig methadone (DOLOPHINE) 5 mg tablet Take 1.5 tablets by mouth every evening for 30 days. Do not start before August 26, 2023. Tadalafil (CIALIS) 5 mg tablet Take 1 tablet by mouth once daily. lisinopril-hydroCHLOROthiazide (ZESTORETIC) 20-12.5 mg per tablet Take 2 tablets by mouth once daily. buPROPion XL (WELLBUTRIN XL) 150 mg 24 hr tablet Take 1 tablet by mouth once daily. semaglutide (OZEMPIC) 1 mg/dose (4 mg/3 mL) pen Inject 1 mg subcutaneously one time a week. methadone (DOLOPHINE) 5 mg tablet Take 1.5 tablets by mouth every evening for 30 days. methadone (DOLOPHINE) 5 mg tablet Take 1.5 tablets by mouth every evening for 30 days. Do not start before June 26, 2023. cyclobenzaprine (FLEXERIL) 10 mg tablet Take 1 tablet by mouth three times a day as needed for muscle spasm. testosterone cypionate (DEPO-TESTOSTERONE) 200 mg/mL injection Inject 1 mL intramuscularly every 2 weeks for 90 days. blood sugar diagnostic (BLOOD GLUCOSE TEST) test strip Test blood sugar(s) 1-2 times daily. Dx: Type 2 DM - Uncontrolled E11.65 Insulin: No Lancets lancets Test blood sugar(s) 1-2 times daily. Dx: Type 2 DM - Uncontrolled E11.65 Insulin: No CPAP/BIPAP/OTHER Continue Auto CPAP with current settings of 8-15 cm H2O. Lifetime supplies for Auto CPAP, including patient preferred mask, head gear, heated tubing, humidity, filters, chin strap. Dx: Obstructive Sleep Apnea G47.33 DME: [employer] [facility] atorvastatin (LIPITOR) 20 mg tablet Take 1 tablet by mouth daily at bedtime. For cholesterol. CPAP Provide lifetime supplies for AutoPAP 8-15 cm H20 including nasal pillow mask, heated tubing, humidity, filters and fax download report to assess residual AHI to [phone]. Dx: G47.33 No current facility-administered medications for this visit. Medications and allergies reviewed by this provider. SOCIAL HISTORY Social History Tobacco Use Smoking status: Never Smokeless tobacco: Never Vaping Use Vaping Use: Never used Substance Use Topics Alcohol use: Yes Alcohol/week: 2.0 standard drinks of alcohol Types: 2 Cans of beer per week Drug use: Never REVIEW OF SYSTEMS All other reviewed and negative other than HPI. OBJECTIVE: BP (P) 112/74 Pulse 79 Resp 18 Wt 109.6 kg (241 lb 9.6 oz) SpO2 96% BMI 32.77 kg/m . Vital signs reviewed by this provider. APPEARANCE Well appearing, alert, in no acute distress, well-hydrated, well nourished. EYES conjunctiva and sclera normal. HEART RRR with normal S1 and S2, no murmurs, no gallops, no JVD appreciated Lungs: Lungs clear to auscultation, No wheezing, rales or rhonchi EXTREMITIES Extremities normal, No deformities, No skin discoloration, No edema, and Normal pulses bilaterally. SKIN Skin color, texture, turgor normal, no suspicious rashes or lesions DM foot exam: shoes and socks removed, No deformities, ulcers, calluses, normal distal pulses, and sensitive to 10 gm monofilament Latest Ref Rn 08/23/2023 Protein, Total 6.3 - 8.0 g/dL 7.2 Albumin 3.9 - 4.9 g/dL 4.3 Calcium 8.5 - 10.2 mg/dL 9.4 Bilirubin, Total 0.2 - 1.3 mg/dL 0.7 Alkaline Phosphatase 38 - 113 U/L 80 AST 14 - 40 U/L 17 ALT 10 - 54 U/L 13 Glucose 74 - 99 mg/dL 96 BUN 9 - 24 mg/dL 11 Creatinine 0.73 - 1.22 mg/dL 1.22 Sodium 136 - 144 mmol/L 135 (L) Potassium 3.7 - 5.1 mmol/L 3.8 Chloride 97 - 105 mmol/L 99 CO2 22 - 30 mmol/L 25 Anion Gap 9 - 18 mmol/L 11 eGFR >=60 mL/min/1.73m 71 Cholesterol, Total <200 mg/dL 180 Triglyceride <150 mg/dL 230 (H) HDL Cholesterol >39 mg/dL 32 (L) Non HDL Cholesterol <130 mg/dL 148 (H) Fasting Time hrs 13 VLDL Cholesterol <30 mg/dL 46 (H) TC:HDL Ratio <5.10 5.63 (H) LDL Cholesterol <100 mg/dL 102 (H) LDL:HDL Ratio <2.54 3.19 (H) Hemoglobin A1C 4.3 - 5.6 % 5.3 Estimated Average Glucose mg/dL 105 Legend: (L) Low (H) High Dilated Retinal Exam Never done Hepatitis B Vaccine(1 of 3 - 19+ 3-dose series) Never done Colorectal Cancer Screening due on 02/17/2021 Covid-19 Vaccine(2022- season) due on 02/14/2023 Depression Assessment due on 06/16/2023 Diabetic Foot Exam due on 08/31/2023 HbA1C due on 02/23/2024 Urine Albumin:Creatinine Ratio due on 03/03/2024 Annual PCP Team Chronic Disease Visit due on 05/30/2024 LDL Cholesterol due on 08/22/2024 BP Controlled (<130/80) due on 08/28/2024 DTaP,Tdap,Td Vaccine(2 - Td or Tdap) due on 03/10/2030 Influenza Vaccine Completed Hepatitis C Screening Completed HIV Screening Completed Shingrix Vaccine Completed Pneumococcal Vaccine Completed ASSESSMENT/PLAN: 1. Essential hypertension - ICD9: 401.9, ICD10: I10 (primary diagnosis) - Controlled - Continue current medications - Recommend home blood pressure monitoring, to bring results to next visit - Encouraged sodium restriction, DASH or Mediterranean diet - Recommend regular aerobic exercise - Discussed need for and benefit of weight loss. BMI 32.77 kg/(m^2) - Follow up in 6 months for hypertension visit 2. Hypertriglyceridemia - ICD9: 272.1, ICD10: E78.1 - Uncontrolled - Counseled on healthy diet and regular exercise - Discussed need for and benefit of weight loss. BMI 32.77 kg/(m^2) - Follow up in 6 months, sooner should any other issues arise. - restart atorvastatin - ATORVASTATIN 20 MG TABLET 3. JOSÉ MIGUEL on CPAP - ICD9: 327.23, ICD10: G47.33 - continue nightly use - follow-up with sleep medicine today as scheduled 4. Major depressive disorder, remission status unspecified, unspecified whether recurrent - ICD9: 296.20, ICD10: F32.9 - stable on current regime - DEPRESSION SCREENING/ASSESSMENT 5. Type 2 diabetes mellitus without complication, without long-term current use of insulin (HCC) - ICD9: 250.00, ICD10: E11.9 - Controlled - Continue current medications - Statin prescribed - atorvastatin - Blood glucose monitoring on a once daily schedule - Counseled on healthy diet and regular exercise - Discussed need for and benefit of weight loss. BMI 32.77 kg/(m^2) - Follow up in 6 months, sooner should any other issues arise. - SEMAGLUTIDE 1 MG/DOSE (4 MG/3 ML) SUBCUTANEOUS PEN INJECTOR 6. Encounter for screening fecal occult blood testing - ICD9: V76.51, ICD10: Z12.11 - FECAL OCCULT BLOOD TEST Genesis Spencer APRN.MARTA Prescription instructions reviewed with patient as applicable. Patient advised if symptoms do not improve or if symptoms worsen sooner, to contact their primary care physician. Potential red flag symptoms discussed with the patient. Reviewed appropriate action plan to take if red flag symptoms occur. Patient agreeable to treatment plan. Medical Decision Making: Problems: Moderate: 1+ chronic illnesses with change and 2+ stable chronic illnesses Risk: Moderate: Drug management Medical Decision Making Level: 4 - Moderate documented in this encounter [facility] 08-21-2023 Miscellaneous Notes Images from the original note were not included. documented in this encounter [facility] 06-12-2023 Note HNO ID: [id number] Author: Mariangel Cruz, RN Service: Nursing Author Type: Registered Nurse Type: Nursing Progress Note Filed: 06/12/2023 2:29 PM Note Text: Pt ambulated to and from bathroom with steady gait. [facility] 06-04-2023 Miscellaneous Notes Addended by: GENESIS SPENCER on: 06/04/2023 04:01 PM Modules accepted: Orders documented in this encounter [facility] 05-27-2023 Instructions Karli Correa APRN.CNP - 05/27/2023 2:39 PM EST Images from the original note were not included. PLAN: JOSÉ MIGUEL: - Continue Auto CPAP at settings of 11-15 cmH2O - Sleep apnea is presently well controlled! Keep up the great work! - Try the new mask to see if this helps with dry mouth: Sample Patti fullface mask (size small / medium) provided today - Remember to clean your mask and equipment regularly, as directed. - Avoid use of ozone display manager, SoClean devices, or UV cleaning devices - Avoid using alcohol or alcohol-containing products on your mask, as this may compromise the integrity of the mask materials and contribute to leak issues - Use only baby shampoo and water, mild dish soap and water, or CPAP-specific wipes to clean your supplies. - You should be eligible for new supplies approximately every 3-6 months, depending on your insurance coverage. Contact your Durable Medical Equipment (DME) company for new supplies as needed. - DME: [employer] [facility] [place] - As long as you're maintaining current weight, you can reach out to Dr. Riley to re-discuss Inspire and get updated sleep study RLS: - Continue methadone 7.5mg nightly for RLS symptoms - Electronic prescriptions for May, Jun, Jul provided - In accordance with department regulations, in order for controlled substances to be prescribed, you must be evaluated by a Sleep physician at least once yearly, and must attend at least one in-person visit per year. - Your medications require that you follow-up every 3 months for refills. - Other requirements for use of controlled substances may include urine tox screenings and EKGs/cardiac evaluations. - Utox completed 10/2022 - Physician appt: 03/07/[address] Man - Last in-person visit: 05/27/23 - Follow-up in 3 months with [facility] or Dr. Man - We now have an FIREARMS EXPERT at the [place] location as well - Frank Lal APRN - Plan to book your appointments with Dr. Man about 6 months in advance. PAP Supply Guidelines Below are the guidelines for reordering your supplies. You will be responsible for your deductible, co-payments, and out of pocket expenses. Item Medicare & Commercial Insurance Medicaid & HCAP Nasal Mask (no headgear) 1 every 3 months 1 per year Nasal Mask Cushion 1 every month 2 per year Full Face Mask (no headgear) 1 every 3 months 1 per year Full Face Mask Cushion 1 every month *Self-Pay Nasal Pillows 2 every month 2 per year Headgear 1 every 6 months 1 per year Chin Strap 1 every 6 months 2 per year Tubing 1 every 3 months 1 per year Filters: Reusable 1 every 6 months 4 per year Filters: Disposable 2 every month 1 per month Humidifier Chamber(disposable) 1 every 6 months *Self-Pay Contacting the Sleep Disorders Center: - Appointments can be scheduled through the central scheduling system for the [facility] at [phone]. - Call the Sleep Disorders Center at [phone] for questions. - May use Message [employer] Doc through [employer] for questions. - [facility] website: [email or web address] documented in this encounter [facility] 05-27-2023 History of Present illness Narrative Images from the original note were not included. [facility] Follow up/ Established patient visit Date of last visit : 03/07/2023 - Dr. Man Per last visit: IMPRESSION: I: Deferred II: Deferred III: Restless legs syndrome (rls) (primary encounter diagnosis) Chronic use of opiate for therapeutic purpose José Miguel on cpap Iron deficiency anemia, unspecified iron deficiency anemia type Prediabetes Primary hypertension Hypogonadism in male Idiopathic small fiber peripheral neuropathy Hypertriglyceridemia Benign prostatic hyperplasia, unspecified whether lower urinary tract symptoms present Restless legs syndrome (rls) (primary encounter diagnosis) PLAN: Thus, after reviewing the [facility] Electronic Medical Record and interviewing the patient either in person or virtually it is my professional opinion that the patient should continue the using the Positive Airway Pressure (PAP) device nightly at the current settings and should also continue the current medications at the current doses and times. Once he loses about 20 pounds he will notify us and we will order a SPLIT NIGHT Study in order to be prepped for possible Inspire. The risks, benefits and common adverse events were reviewed with the patient and they appear to understand. The patient may review the pharmacy drug information sheet and is welcome to review the entire product information sheet from the strategic marketing specialist. I would be happy to review any questions they have after review of that detailed FDA approved medical information. I, our STATISTICAL PROGRAMMER ANALYST and administrative staff will all continue to monitor the [place] Automated Rx Reporting System (OARRS) on a regular basis and document that it has been reviewed and that the patient is not obtaining controlled substances from another provider. Random drug screens may be given depending on the case. I would like for you to follow up with one our Sleep Medicine Advance Practice Providers in approximately 90 days. It was a pleasure visiting with you today in the [facility]. It is certainly a privilege to assist you in your medical care. Remember to please follow up with your other medical specialists and your primary care provider on a regular basis. If you have any further questions regarding the diagnosis or recommendations today, please do not hesitate to send us a [employer] message or call our collaborating Section Laborer nurse Boggs RN, BSN at [phone] Extension #[phone]. I spent a total time of over 30 minutes on the date of the service on this case. This included preparing to see the patient by reviewing the medical record prior to examining the patient, interviewing the patient face to face in the clinic or virtually via audio and video secure [facility] technology, ordering appropriate medications/tests/procedures, completing clinical documentation of the visit, counseling and educating the patient/family/caregiver, communicating with other health care providers as well as general care coordination. Jaden Man, DO, CBSM, ABSM Here for follow up for RLS, JOSÉ MIGUEL Interval history : He is lost a fair amount of weight since his last visit. He would like to get through the holidays and maintain his current weight before reaching out to Dr. Riley about getting a new sleep study. SLEEP APNEA A Home Sleep Test (HST) performed on 09/02/2020 revealed severe JOSÉ MGIUEL (AHI of 36.6) that was associated with a minimum oxygen saturation of 71%; (3% hypopnea scoring; BMI 36.2). A PAP titration study completed on 09/29/2020 showed that a setting of 15 cmH2O normalized the AHI and maintained O2 saturation above 94 %; (3% hypopnea scoring; BMI 36.4). Sleep apnea type : JOSÉ MIGUEL, Most Recent Apnea-Hypopnea Index (AHI): 36.6 Treatment : PAP therapy -He was seen by Dr. Riley to discuss Inspire on 03/04/2023. He was advised that once BMI is under 35, he should message Dr. Riley to have a new sleep study ordered and revisit option of Inspire. DME: [facility] PAP History: Uses AutoPAP for 6 hours per night, 7 nights per week. Current PAP settin-15 cm H2O. Difficulties with AutoPAP: None Reviewed objective PAP compliance data: Yes Mask type: nasal mask Mask issues: mild claustrophobia during the night ; hose tugging on mask ; experiencing severe dry mouth recently Uses chin strap: No Uses humidity: Distilled water There is a perceived benefit by the patient: Yes Observers report abolition of snoring with AutoPAP use. ------- RLS: Treatment: Methadone 7.5 mg (1.5 x 5mg tab) - typically takes around 7:00 pm Status: Improved He tried decreasing dose to 5mg nightly due to good RLS control, but developed recurrence of RLS sx and dose was resumed at 7.5mg nightly. Symptom free all day on current tx. -Medication: Methadone 7.5mg (1.5 x 5mg tab) every evening -Timin PM -Side effects: Denies -Benefit: Yes -Last filled: 04/28/2023 (#45 for 30 day supply) Prior treatment: -Lyrica -Gabapentin -Pramipexole -Requip PDMP website checked and validated. All prescriptions have been APPROPRIATELY filled. No suspicious activity was identified. 05/27/2023 by Karli Correa APRN.[facility] Physician appt: 03/07/2023- Dr. Man In-person appt: 05/27/23 Urine tox: Latest Reference Range & Units 10/26/22 11:30 Amphetamines Negative Negative Barbiturates Negative Negative Benzodiazepines Urine Negative Negative Cocaine Urine Negative Negative Cannabinoids, Urine Negative Negative Ethanol, Urine <11 mg/dL <11 Opiates Negative Negative Phencyclidine Negative Negative Oxycodone, Urine Negative Negative State of Residence: [place] Pharmacy: [facility] Contributing Factors: - Untreated JOSÉ MIGUEL -- No - Antidepressants -- Zoloft 50mg daily Has not taken iron in last 5 years. Ferritin Date Value Ref Range Status 07/06/2021 308.0 30.3 - 565.7 ng/mL Final 01/02/2021 378.0 30.3 - 565.7 ng/mL Final 08/02/2019 280.0 30.3 - 565.7 ng/mL Final Transferrin Saturation Date Value Ref Range Status 07/06/2021 37 15 - 57 % Final 01/02/2021 44 15 - 57 % Final 08/02/2019 23 15 - 57 % Final Iron Date Value Ref Range Status 07/06/2021 91 41 - 186 ug/dL Final 01/02/2021 112 41 - 186 ug/dL Final 08/02/2019 74 41 - 186 ug/dL Final TIBC Date Value Ref Range Status 07/06/2021 249 232 - 386 ug/dL Final 01/02/2021 255 232 - 386 ug/dL Final 08/02/2019 316 232 - 386 ug/dL Final Hemoglobin Date Value Ref Range Status 03/03/2023 15.1 13.0 - 17.0 g/dL Final 07/30/2022 15.4 13.0 - 17.0 g/dL Final Vitamin D 25 Hydroxy Date Value Ref Range Status 10/12/2022 56.4 31.0 - 80.0 ng/mL Final Comment: Classification of 25 OH Vitamin D status: Deficiency/Insufficiency: < or = 30 ng/ml. Sufficiency/Optimal Levels: 31-80 ng/mL Toxicity: > 100 ng/mL. Test performed by chemiluminescent immunoassay. 07/30/2022 19.1 (L) 31.0 - 80.0 ng/mL Final Comment: Classification of 25 OH Vitamin D status: Deficiency/Insufficiency: < or = 30 ng/ml. Sufficiency/Optimal Levels: 31-80 ng/mL Toxicity: > 100 ng/mL. Test performed by chemiluminescent immunoassay. 08/13/2021 12.4 (L) 31.0 - 80.0 ng/mL Final Comment: Classification of 25 OH Vitamin D status: Deficiency/Insufficiency: < or = 30 ng/ml. Sufficiency/Optimal Levels: 31-80 ng/mL Toxicity: > 100 ng/mL. Test performed by chemiluminescent immunoassay. 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 Sleep Questions 02/28/2023 Reason for visit: Sleep apnea, Restless Legs Syndrome Average hours slept in 24 hours: - Average hours of CPAP per night: 7 Percent of nights CPAP used at least 4 hours: 100 Accidents or near accidents due to drowsy drivin Sullivan Sleepiness Scale 09/30/2022 12/26/2022 02/28/2023 Score 4 (No daytime sleepiness) 4 (No daytime sleepiness) 7 (No daytime sleepiness) PROMIS CAT Sleep Disturbance 09/30/2022 12/26/2022 02/28/2023 PROMIS Sleep Disturbance T-Score 38 (within normal limits) 46 (within normal limits) 56 (mild) PROMIS Sleep Disturbance Percentile 88% 66% 27% Insomnia Severity Index 12/09/2021 07/29/2022 02/28/2023 Score 19 14 12 Restless Leg Syndrome 09/30/2022 12/26/2022 02/28/2023 Score 23 18 13 PHQ-9 02/28/2023 02/28/2023 05/26/2023 Score 8 7 6 PROMIS Global Health - (T-Scores - the mean of general population = 50. Five points is a clinically meaningful difference.) 09/30/2022 12/26/2022 05/26/2023 Physical T-Score 54.1 47.7 50.8 Mental T-Score 53.3 48.3 48.3 PMH, PSH, SH: Reviewed SLEEP RELATED ROS Review of Systems HENT: + Dry mouth Respiratory: Negative. Cardiovascular: Negative. Genitourinary: Negative. Musculoskeletal: Positive for back pain. Negative for uncomfortable leg sensations. ALLERGIES Allergen Reactions Metformin Intolerance Muscle aches, increase stool CURRENT MEDICATIONS: buPROPion XL (WELLBUTRIN XL) 150 mg 24 hr tablet Take 1 tablet by mouth once daily. cyclobenzaprine (FLEXERIL) 10 mg tablet Take 1 tablet by mouth three times a day as needed for muscle spasm. methadone (DOLOPHINE) 5 mg tablet Take 1.5 tablets by mouth every evening for 30 days. semaglutide (OZEMPIC) 0.25 mg or 0.5 mg (2 mg/3 mL) pen Inject 0.5 mg subcutaneously one time a week. testosterone cypionate (DEPO-TESTOSTERONE) 200 mg/mL injection Inject 1 mL intramuscularly every 2 weeks for 90 days. flash glucose sensor ([employer] KRYSTA 14 DAY SENSOR) kit Check blood sugar twice daily Tadalafil (CIALIS) 5 mg tablet Take 1 tablet by mouth once daily. blood sugar diagnostic (BLOOD GLUCOSE TEST) test strip Test blood sugar(s) 1-2 times daily. Dx: Type 2 DM - Uncontrolled E11.65 Insulin: No Lancets lancets Test blood sugar(s) 1-2 times daily. Dx: Type 2 DM - Uncontrolled E11.65 Insulin: No lisinopril-hydroCHLOROthiazide (ZESTORETIC) 20-12.5 mg per tablet Take 2 tablets by mouth once daily. CPAP/BIPAP/OTHER Continue Auto CPAP with current settings of 8-15 cm H2O. Lifetime supplies for Auto CPAP, including patient preferred mask, head gear, heated tubing, humidity, filters, chin strap. Dx: Obstructive Sleep Apnea G47.33 DME: [employer] [facility] atorvastatin (LIPITOR) 20 mg tablet Take 1 tablet by mouth daily at bedtime. For cholesterol. CPAP Provide lifetime supplies for AutoPAP 8-15 cm H20 including nasal pillow mask, heated tubing, humidity, filters and fax download report to assess residual AHI to [phone]. Dx: G47.33 Syringe with Needle, Disp, 3 mL 25 x 1 1/2 1 Each every 2 weeks. (Patient not taking: Reported on 03/04/2023) Prior Hypersomnia/Narcolepsy Medications (20 years) Some values may be hidden. Unless noted otherwise, only the newest values recorded on each date are displayed. Hypersomnia/Narcolepsy Medications No data to display. Prior RLS Medications (last 20 years) Some values may be hidden. Unless noted otherwise, only the newest values recorded on each date are displayed. RLS Medications meperidine (PF) 12.5 mg injection (DEMEROL) Dose: 12.5 mg ONCE May Repeat 12.5 mg in 10 minutes X1 for Continued Shivering Starting date: 08/21/2021 Ending date: 08/21/2021 (Discontinued) methadone (DOLOPHINE) 5 mg tablet Dose: 2.5 mg DAILY IN THE LATE AFTERNOON For RLS-pain Starting date: 03/20/2021 Ending date: 03/26/2021 (Discontinued) methadone (DOLOPHINE) 5 mg tablet Dose: 5 mg DAILY IN THE LATE AFTERNOON For RLS-pain Starting date: 03/26/2021 Ending date: 04/18/2021 (Discontinued) methadone (DOLOPHINE) 5 mg tablet Dose: 5 mg DAILY IN THE LATE AFTERNOON For RLS-pain Starting date: 04/25/2021 Ending date: 05/16/2021 (Discontinued) methadone (DOLOPHINE) 5 mg tablet Dose: 5 mg DAILY IN THE LATE AFTERNOON For RLS-pain Starting date: 07/24/2021 Ending date: 07/06/2021 (Discontinued) methadone (DOLOPHINE) 5 mg tablet Dose: 5 mg DAILY IN THE LATE AFTERNOON For RLS-pain Starting date: 06/24/2021 Ending date: 07/06/2021 (Discontinued) methadone (DOLOPHINE) 5 mg tablet Dose: 5 mg DAILY IN THE LATE AFTERNOON For RLS-pain Starting date: 05/25/2021 Ending date: 07/06/2021 (Discontinued) methadone (DOLOPHINE) 5 mg tablet Dose: 1 tablet po q bedtime for treatment refractory restless legs syndrome Starting date: 12/13/2021 Ending date: 01/11/2022 (Discontinued) methadone (DOLOPHINE) 5 mg tablet Dose: 1 tablet po q bedtime for treatment refractory restless legs syndrome Do not start before January 13, 2022. Starting date: 01/13/2022 Ending date: 02/11/2022 (Discontinued) methadone (DOLOPHINE) 5 mg tablet Dose: 1 tablet po q bedtime for treatment refractory restless legs syndrome Starting date: 02/11/2022 Ending date: 03/14/2022 (Discontinued) methadone (DOLOPHINE) 5 mg tablet Dose: 1 tablet po q bedtime for treatment refractory restless legs syndrome Starting date: 03/14/2022 Ending date: 04/08/2022 (Discontinued) methadone (DOLOPHINE) 5 mg tablet Dose: 1 tablet po q bedtime for treatment refractory restless legs syndrome Do not start before April 13, 2022. Starting date: 04/13/2022 Ending date: 06/09/2022 (Discontinued) methadone (DOLOPHINE) 5 mg tablet Dose: 1 tablet at night for refractory RLS pain Do not start before May 13, 2022. Starting date: 05/13/2022 Ending date: 09/30/2022 (Discontinued) methadone (DOLOPHINE) 5 mg tablet Dose: 1 tablet po q bedtime for treatment refractory restless legs syndrome Starting date: 06/11/2022 Ending date: 06/20/2022 (Discontinued) methadone (DOLOPHINE) 5 mg tablet Dose: 1 tablet po q bedtime for treatment refractory restless legs syndrome Do not start before July 11, 2022. Starting date: 07/11/2022 Ending date: 08/02/2022 (Discontinued) methadone (DOLOPHINE) 5 mg tablet Dose: 7.5 mg EVERY EVENING 1.5 tablet po q bedtime for treatment refractory restless legs syndrome Starting date: 08/09/2022 Ending date: 09/30/2022 (Discontinued) methadone (DOLOPHINE) 5 mg tablet Dose: 7.5 mg EVERY EVENING For refractory restless leg syndrome. Starting date: 09/08/2022 Ending date: 09/30/2022 (Discontinued) methadone (DOLOPHINE) 5 mg tablet Dose: 7.5 mg EVERY EVENING for treatment refractory restless legs syndrome Starting date: 10/08/2022 Ending date: 09/30/2022 (Discontinued) methadone (DOLOPHINE) 5 mg tablet Dose: 5 mg EVERY EVENING For refractory restless leg syndrome. Starting date: 10/07/2022 Ending date: 11/04/2022 (Discontinued) methadone (DOLOPHINE) 5 mg tablet Dose: 5 mg EVERY EVENING For refractory restless leg syndrome. Starting date: 11/09/2022 Ending date: 01/02/2023 (Discontinued) methadone (DOLOPHINE) 5 mg tablet Dose: 7.5 mg EVERY EVENING For refractory restless leg syndrome. Starting date: 11/25/2022 Ending date: 12/23/2022 (Discontinued) methadone (DOLOPHINE) 5 mg tablet Dose: 7.5 mg EVERY EVENING For refractory restless leg syndrome. Starting date: 12/24/2022 Ending date: 01/02/2023 (Discontinued) methadone (DOLOPHINE) 5 mg tablet Dose: 7.5 mg EVERY EVENING For refractory restless leg syndrome. Starting date: 01/27/2023 Ending date: 03/04/2023 (Discontinued) methadone (DOLOPHINE) 5 mg tablet Dose: 7.5 mg EVERY EVENING Starting date: 02/26/2023 Ending date: 03/07/2023 (Discontinued) methadone (DOLOPHINE) 5 mg tablet Dose: 7.5 mg EVERY EVENING Starting date: 03/07/2023 Ending date: 03/27/2023 (Discontinued) methadone (DOLOPHINE) 5 mg tablet Dose: 7.5 mg EVERY EVENING Starting date: 03/28/2023 Ending date: 04/28/2023 (Discontinued) methadone (DOLOPHINE) 5 mg tablet Dose: 7.5 mg EVERY EVENING Starting date: 04/28/2023 Ending date: 05/27/2023 (Discontinued) methadone (DOLOPHINE) 5 mg tablet Dose: 7.5 mg EVERY EVENING Starting date: 05/27/2023 Ending date: 06/26/2023 methadone (DOLOPHINE) 5 mg tablet Dose: 7.5 mg EVERY EVENING Starting date: 06/26/2023 Ending date: 07/26/2023 methadone (DOLOPHINE) 5 mg tablet Dose: 7.5 mg EVERY EVENING Starting date: 07/26/2023 Ending date: 08/25/2023 methadone 5 mg/5 mL solution Dose: 4 mg EVERY EVENING For RLS-pain Starting date: 07/06/2021 Ending date: 07/31/2021 (Discontinued) methadone 5 mg/5 mL solution Dose: 4 mg EVERY EVENING For RLS-pain Starting date: 07/31/2021 Ending date: 09/03/2021 (Discontinued) methadone 5 mg/5 mL solution Dose: 4 mg EVERY EVENING For RLS-pain Starting date: 09/03/2021 Ending date: 09/26/2021 (Discontinued) methadone 5 mg/5 mL solution Dose: 4 mg EVERY EVENING For RLS-pain Starting date: 10/06/2021 Ending date: 10/05/2021 (Discontinued) methadone 5 mg/5 mL solution Dose: 4 mg EVERY EVENING For RLS-pain Starting date: 11/05/2021 Ending date: 12/13/2021 (Discontinued) methadone 5 mg/5 mL solution Dose: 4 mg EVERY EVENING For RLS-pain Starting date: 10/05/2021 Ending date: 12/13/2021 (Discontinued) oxyCODONE IR 5 mg tab(s) (ROXICODONE) Dose: 5 mg NEEDED Starting date: 08/21/2021 Ending date: 08/21/2021 (Discontinued) oxyCODONE IR (ROXICODONE) 5 mg immediate release tablet Dose: 5 mg EVERY 6 HOURS NEEDED for more severe postop pain after surgery. Starting date: 08/20/2021 Ending date: 08/27/2021 Pramipexole (MIRAPEX ER) 0.375 mg Tb24 Dose: 1.125 mg EVERY EVENING And decrease as recommended by physician Starting date: 12/26/2020 Ending date: 03/23/2021 (Discontinued) Pramipexole (MIRAPEX ER) 1.5 mg Tb24 Dose: 1.5 mg AT BEDTIME Starting date: Ending date: 08/02/2019 (Discontinued) Pramipexole (MIRAPEX ER) 1.5 mg Tb24 Dose: 1.5 mg EVERY EVENING Starting date: 12/26/2020 Ending date: 03/23/2021 (Discontinued) pramipexole (MIRAPEX) 0.5 mg tablet Dose: 0.5 mg 2 TIMES DAILY (Patient taking differently: 0.5 mg BID as of 09/21/2019 8:20 AM) Starting date: 08/19/2019 Ending date: 11/16/2019 (Discontinued) rOPINIRole (REQUIP) 0.5 mg tablet Dose: 0.5 mg AT BEDTIME Starting date: 08/02/2019 Ending date: 08/04/2019 (Discontinued) rOPINIRole (REQUIP) 1 mg tablet Dose: 1 mg AT BEDTIME Starting date: 08/04/2019 Ending date: 08/19/2019 (Discontinued) rotigotine (NEUPRO) 1 mg/24 hour patch Dose: 1 Patch DAILY Starting date: 11/16/2019 Ending date: 11/29/2019 (Discontinued) rotigotine (NEUPRO) 2 mg/24 hour patch Dose: 2 mg DAILY Starting date: 11/29/2019 Ending date: 12/09/2019 (Discontinued) rotigotine (NEUPRO) 3 mg/24 hour patch Dose: 1 Patch DAILY Starting date: 12/09/2019 Ending date: 12/09/2019 (Discontinued) rotigotine (NEUPRO) 3 mg/24 hour patch Dose: 1 Patch DAILY Starting date: 12/09/2019 Ending date: 12/09/2019 (Discontinued) rotigotine (NEUPRO) 3 mg/24 hour patch Dose: 1 Patch DAILY Starting date: 12/09/2019 Ending date: 12/28/2019 (Discontinued) rotigotine (NEUPRO) 3 mg/24 hour patch Dose: 1 Patch DAILY Starting date: 12/28/2019 Ending date: 12/26/2020 (Discontinued) Medication marked as long-term Prior Insomnia Medications (last 20 years) Some values may be hidden. Unless noted otherwise, only the newest values recorded on each date are displayed. Insomnia Medications midazolam (PF) injection (VERSED) Dose: Starting date: 02/18/2020 Ending date: 02/18/2020 (Discontinued) midazolam (PF) injection (VERSED) Dose: Starting date: 08/21/2021 Ending date: 08/21/2021 midazolam (PF) injection (VERSED) Dose: Starting date: 08/21/2021 Ending date: 08/21/2021 (Discontinued) sertraline (ZOLOFT) 50 mg tablet Dose: 50 mg DAILY Starting date: 07/30/2022 Ending date: 10/30/2022 (Discontinued) sertraline (ZOLOFT) 50 mg tablet Dose: 50 mg DAILY Starting date: 10/30/2022 Ending date: 11/19/2022 (Discontinued) sertraline (ZOLOFT) 50 mg tablet Dose: 50 mg DAILY Starting date: 11/20/2022 Ending date: 05/13/2023 (Discontinued) BP 134/85 (BP Site: Right Arm, BP Position: Sitting, BP Cuff Size: Large Adult) Pulse 78 Temp (!) 35.7 C (96.3 F) Resp 20 Ht 182.9 cm (6') Wt 118.8 kg (262 lb) SpO2 98% BMI 35.53 kg/m PHYSICAL EXAMINATION: General appearance: NAD, well groomed HEENT: Normocephalic, atraumatic Neuro: Awake, alert, memory grossly intact, speech is fluent Heart: RRR Respiratory: No increased work of breathing; able to speak in complete sentences Psych: Appropriate, normal affect IMPRESSION: Restless legs syndrome (rls) (primary encounter diagnosis) [facility] prescription opiate use José Miguel on cpap Dry mouth Nancy Enamorado is a pleasant 52 year old male with PMH of JOSÉ MIGUEL on CPAP, RLS, small fiber polyneuropathy, brachial neuritis, HTN, hypertriglyceridemia, drug induced constipation (presently resolved), hypogonadism, 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 A Home Sleep Test (HST) performed on 09/02/2020 revealed severe JOSÉ MIGUEL (AHI of 36.6) that was associated with a minimum oxygen saturation of 71%; (3% hypopnea scoring; BMI 36.2). A PAP titration study completed on 09/29/2020 showed that a setting of 15 cmH2O normalized the AHI and maintained O2 saturation above 94 %; (3% hypopnea scoring; BMI 36.4). Patient reports compliance with PAP therapy and perceived benefit of treatment, however, he is struggling with his CPAP causing disruption to sleep. More recently, he has been experiencing significant dry mouth with CPAP mask, and download shows high mask leak. Sample Patti fullface mask provided today. Due to his persistent difficulty tolerating PAP therapy, he was evaluated by ENT to discuss Inspire. He was advised that once BMI is under 35, he should message Dr. Riley to have a new sleep study ordered and revisit option of Inspire. With his current weight loss, he has achieved a BMI of 33.6. He wishes to maintain his weight through the holidays before reaching out to Dr. Riley to revisit Inspire option. He has a longstanding h/o RLS, and has been treated in the past with gabapentin, Lyrica, and dopamine agonists without relief. He is now taking methadone 7.5mg nightly, which is controlling his RLS well. He denies SE/ADR with current treatment. He has no h/o iron deficiency. He has vitamin D deficiency which normalized with 12-week course of prescription strength vitamin D. He is compliant with appointments and requirements for controlled substance prescribing. PLAN: JOSÉ MIGUEL: - Continue Auto CPAP at settings of 11-15 cmH2O - Sleep apnea is presently well controlled! Keep up the great work! - Try the new mask to see if this helps with dry mouth: Sample Patti fullface mask (size small / medium) provided today - Remember to clean your mask and equipment regularly, as directed. - Avoid use of ozone display manager, SoClean devices, or UV cleaning devices - Avoid using alcohol or alcohol-containing products on your mask, as this may compromise the integrity of the mask materials and contribute to leak issues - Use only baby shampoo and water, mild dish soap and water, or CPAP-specific wipes to clean your supplies. - You should be eligible for new supplies approximately every 3-6 months, depending on your insurance coverage. Contact your Durable Medical Equipment (DME) company for new supplies as needed. - DME: [employer] - [place] - As long as you're maintaining current weight, you can reach out to Dr. Riley to re-discuss Inspire and get updated sleep study RLS: - Continue methadone 7.5mg nightly for RLS symptoms - Electronic prescriptions for May, Jun, Jul provided - In accordance with department regulations, in order for controlled substances to be prescribed, you must be evaluated by a Sleep physician at least once yearly, and must attend at least one in-person visit per year. - Your medications require that you follow-up every 3 months for refills. - Other requirements for use of controlled substances may include urine tox screenings and EKGs/cardiac evaluations. - Utox completed 10/2022 - Physician appt: 03/07/[address] Man - Last in-person visit: 05/27/23 - Follow-up in 3 months with [facility] or Dr. Man - We now have an FIREARMS EXPERT at the [place] location as well - BRITTANY Huntley APRN.MARTA I spent a total of 53 minutes on the date of the service which included preparing to see the patient, [id number] patient care, completing clinical documentation, obtaining and/or reviewing separately obtained history, performing a medically appropriate examination, counseling and educating the patient/family/caregiver, ordering medications, tests, or procedures, and communicating results to the patient/family/caregiver. documented in this encounter [facility] 05-11-2023 History of Present illness Narrative This note was created using innRoadriter. Subjective Nancy Enamorado is a 52 year old male.Patient reports having right sided back pain and tightness, worsening for the past couple of weeks. Patient has tried tylenol, ibuprofen, cold and heat with no improvement of symptoms. Objective BP 143/87 Pulse 73 Temp 36.3 C (97.3 F) Resp 18 Wt 118.8 kg (262 lb) SpO2 99% BMI 35.53 kg/m Physical Exam PHYSICAL EXAMINATION: General appearance: Well appearing, alert, in no acute distress, well-hydrated, well nourished. Back: positive findings: limitation of motion - flexion: moderate and extension: moderate, paraspinal muscle spasm right side at level of T-12 to L2. Tender with palpation Assessment and Plan ASSESSMENT/PLAN: 1. Back spasm - ICD9: 724.8, ICD10: M62.830 - CYCLOBENZAPRINE 10 MG TABLET Follow up with pcp if no improvement in 5-7 days. Candace Aquino APRN.CNP documented in this encounter [facility] 04-28-2023 Miscellaneous Notes Summary: Methadone Refilled The following approved medication requests have been transmitted electronically. Requested Prescriptions Signed Prescriptions Disp Refills methadone (DOLOPHINE) 5 mg tablet 45 tablet 0 Sig: Take 1.5 tablets by mouth every evening for 30 days. Araceli Mcgovern APRN.CNP PDMP website checked and validated. All prescriptions have been APPROPRIATELY filled. No suspicious activity was identified. 04/28/2023 by Araceli Mcgovern APRN.CNP Appointment scheduled tomorrow 04/29/23 with Sleep [facility]. Araceli Mcgovern APRN.CNP April 28, 2023 11:48 AM SWAPNA: 03/07/23 In Person - 03/07/23 MD Manan Man F/U: 04/29/23 IMPRESSION: I: Deferred II: Deferred III: Restless legs syndrome (rls) (primary encounter diagnosis) Chronic use of opiate for therapeutic purpose José Miguel on cpap Iron deficiency anemia, unspecified iron deficiency anemia type Prediabetes Primary hypertension Hypogonadism in male Idiopathic small fiber peripheral neuropathy Hypertriglyceridemia Benign prostatic hyperplasia, unspecified whether lower urinary tract symptoms present Restless legs syndrome (rls) (primary encounter diagnosis) PLAN: Thus, after reviewing the [facility] Electronic Medical Record and interviewing the patient either in person or virtually it is my professional opinion that the patient should continue the using the Positive Airway Pressure (PAP) device nightly at the current settings and should also continue the current medications at the current doses and times. Once he loses about 20 pounds he will notify us and we will order a SPLIT NIGHT Study in order to be prepped for possible Inspire. The risks, benefits and common adverse events were reviewed with the patient and they appear to understand. The patient may review the pharmacy drug information sheet and is welcome to review the entire product information sheet from the strategic marketing specialist. I would be happy to review any questions they have after review of that detailed FDA approved medical information. I, our STATISTICAL PROGRAMMER ANALYST and administrative staff will all continue to monitor the [place] Automated Rx Reporting System (OARRS) on a regular basis and document that it has been reviewed and that the patient is not obtaining controlled substances from another provider. Random drug screens may be given depending on the case. I would like for you to follow up with one our Sleep Medicine Advance Practice Providers in approximately 90 days. It was a pleasure visiting with you today in the [facility]. It is certainly a privilege to assist you in your medical care. Remember to please follow up with your other medical specialists and your primary care provider on a regular basis. If you have any further questions regarding the diagnosis or recommendations today, please do not hesitate to send us a [employer] message or call our collaborating Section Laborer nurse Ambrose RN, BSN at [phone] Extension #[phone]. I spent a total time of over 30 minutes on the date of the service on this case. This included preparing to see the patient by reviewing the medical record prior to examining the patient, interviewing the patient face to face in the clinic or virtually via audio and video secure [facility] technology, ordering appropriate medications/tests/procedures, completing clinical documentation of the visit, counseling and educating the patient/family/caregiver, communicating with other health care providers as well as general care coordination. Jaden Man, DO, CBSM, ABSM documented in this encounter [facility] 04-14-2023 Miscellaneous Notes TC to patient who verbalized understanding of providers instructions below. Nothing further at this time. MARCUS Chaudhry Let patient know he can increase his ozempic to 0.5 mg once a week. Genesis Spencer APRN.CNP PDMP website checked and validated. All prescriptions have been APPROPRIATELY filled. No suspicious activity was identified. 04/14/2023 by Genesis Spencer APRN.CNP Patient has been identified by name and date of : Yes Requested Prescriptions Pending Prescriptions Disp Refills semaglutide (OZEMPIC) 0.25 mg or 0.5 mg (2 mg/3 mL) pen 1 Each 1 Sig: Inject 0.25 mg subcutaneously one time a week. testosterone cypionate (DEPO-TESTOSTERONE) 200 mg/mL injection 6 mL 0 Sig: Inject 1 mL intramuscularly every 2 weeks for 90 days. RX INSTRUCTIONS: Patient aware RX will be sent to pharmacy. No need to notify patient. Pt asking if Ozempic could be increased. Patient last office visit: 03/04/23 Patient next office visit: 05/30/23 Abbie Altamirano MA documented in this encounter [facility] 03-31-2023 Nurse Note REVIEW OF SYSTEMS: General: The patient denies fatigue, denies weight loss, denies weight gain, denies feeling hot, and denies feelings of cold. Eyes: The patient denies glaucoma, denies eye injury/surgery, wears glasses or contacts. Ear/Nose/Throat: The patient NOTES allergies, denies hayfever, denies ear infections, and NOTES bloody noses. Cardiovascular: The patient denies chest pain, denies heart disease, NOTES high blood pressure,denies cardiac stent, denies prior heart attack, denies irregular heart beat, denies high cholesterol, denies poor circulation, denies heart failure, other cardiac issues, denies claudication, denies cold feet, denies peripheral arterial stent. Respiratory: The patient denies tuberculosis, denies pneumonia, denies frequent cough, denies pulmonary embolism, denies shortness of breath, denies coughing up blood and JOSÉ MIGUEL on CPAP. Gastrointestinal: The patient denies difficulty swallowing, denies acid reflux, denies ulcers, denies vomiting, denies jaundice/hepatitis, NOTES gallbladder problems, denies black or tarry stools, denies hemorrhoids, denies bleeding from rectum, denies diverticulitis, denies constipation, denies diarrhea, denies loss of stool control, and NOTES hernias. Kidney/Bladder: The patient denies kidney stones, denies urine infections, and denies bloody urine. Skin: The patient denies a history of skin cancer, denies bleeding/changing moles, and denies a history of skin rash. Neurologic: The patient denies a history of epilepsy/convulsions, denies headaches, denies head/spinal injuries, and denies stroke/TIA. Psychiatric: The patient denies psychiatric medications, denies depression, and denies voices, denies substance abuse. Endocrine: The patient denies thyroid disorders, NOTES diabetes, and denies hormonal problems. Hematologic: The patient denies a history of bruising, denies bleeding, and denies anemia, denies blood clots. Infections: The patient denies a history of measles and mumps, denies rheumatic fever, and denies sexually transmitted diseases. Musculoskeletal: The patient denies back pain/injury, denies back problems, denies sciatica, denies knee/foot trouble, denies arthritis, or denies gout. When was patient's last Mammogram screening? N/A Last Colonoscopy: 02/18/2020 Kesha Alfaro RN documented in this encounter [facility] 03-31-2023 History of Present illness Narrative HISTORY AND PHYSICAL Nancy Enamorado 1970 REFERRING PHYSICIAN: Chayo Hickey,* CHIEF COMPLAINT: lipoma HPI: The patient is a 52 year old male who presents for lump on right upper back/posterior shoulder area. Patient first noticed this lesion approximately 1.5 years ago, some enlargement since that time. Patient was evaluated by PCP and had ultrasound completed, which showed a 6.3 cm lesion consistent in appearance with a lipoma. Patient is referred for surgical excision. PCP note had also mentioned rectal bleeding. Discussed with patient who states this has completely resolved. He is not interested in pursuing colonoscopy at this time. Patient denies problems with sedation in the past. SIGNIFICANT MEDICAL PROBLEMS: PAST MEDICAL HISTORY Diagnosis Date Achilles tendinosis of left lower extremity s/p repair BPH (benign prostatic hyperplasia) Diabetes mellitus type II (HCC) Erectile dysfunction Heel spur, left Hypertension Hypertriglyceridemia Hypogonadism in male Idiopathic neuropathy JOSÉ MIGUEL (obstructive sleep apnea) 08/2020 RLS (restless legs syndrome) Dr Man Thrombosed hemorrhoids 11/2021 Vitamin D deficiency OPERATIONS: PAST SURGICAL HISTORY Procedure Laterality Date APPENDECTOMY ARTHROSCOPY KNEE DIAGNOSTIC W/WO SYNOVIAL BX SPX Left Arthroscopy, knee CHOLECYSTECTOMY HX HERNIA REPAIR HX Bilateral inguinal hernia, congenital NEUROPLASTY &/TRANSPOS MEDIAN NRV CARPAL TUNNE Carpal tunnel decomp bilateral PAST SURGICAL HISTORY OF 07/30/2019 repair bone spur achilles left foot PAST SURGICAL HISTORY OF Left 08/21/2021 achilles tendon repair PAST SURGICAL HISTORY OF 12/05/2021 hemorrhoidectomy SKIN BIOPSY HX TONSILLECTOMY HX TONSILLECTOMY PRIMARY/SECONDARY <AGE 12 Tonsillectomy CURRENT MEDICATIONS: Current Outpatient Medications Medication Sig Dispense Refill atorvastatin (LIPITOR) 20 mg tablet Take 1 tablet by mouth daily at bedtime. For cholesterol. 90 tablet 1 blood sugar diagnostic (BLOOD GLUCOSE TEST) test strip Test blood sugar(s) 1-2 times daily. Dx: Type 2 DM - Uncontrolled E11.65 Insulin: No 50 Strip 11 CPAP/BIPAP/OTHER Continue Auto CPAP with current settings of 8-15 cm H2O. Lifetime supplies for Auto CPAP, including patient preferred mask, head gear, heated tubing, humidity, filters, chin strap. Dx: Obstructive Sleep Apnea G47.33 DME: [employer] [facility] 1 Each 0 CPAP Provide lifetime supplies for AutoPAP 8-15 cm H20 including nasal pillow mask, heated tubing, humidity, filters and fax download report to assess residual AHI to [phone]. Dx: G47.33 flash glucose sensor (FREESTYLE KRYSTA 14 DAY SENSOR) kit Check blood sugar twice daily 4 Each 1 Lancets lancets Test blood sugar(s) 1-2 times daily. Dx: Type 2 DM - Uncontrolled E11.65 Insulin: No 100 Each 11 lisinopril-hydroCHLOROthiazide (ZESTORETIC) 20-12.5 mg per tablet Take 2 tablets by mouth once daily. 180 tablet 1 methadone (DOLOPHINE) 5 mg tablet Take 1.5 tablets by mouth every evening for 30 days. 45 tablet 0 semaglutide (OZEMPIC) 0.25 mg or 0.5 mg (2 mg/3 mL) pen Inject 0.25 mg subcutaneously one time a week. 1 Each 1 sertraline (ZOLOFT) 50 mg tablet Take 1 tablet by mouth once daily. 90 tablet 1 Syringe with Needle, Disp, 3 mL 25 x 1 1/2 1 Each every 2 weeks. (Patient not taking: Reported on 03/04/2023) 6 Each 1 Tadalafil (CIALIS) 5 mg tablet Take 1 tablet by mouth once daily. 90 tablet 1 testosterone cypionate (DEPO-TESTOSTERONE) 200 mg/mL injection Inject 1 mL intramuscularly every 2 weeks for 90 days. 6 mL 0 No current facility-administered medications for this visit. ALLERGIES: Metformin PERSONAL HISTORY: Social History Tobacco Use Smoking status: Never Smokeless tobacco: Never Vaping Use Vaping Use: Never used Substance Use Topics Alcohol use: Yes Alcohol/week: 2.0 standard drinks of alcohol Types: 2 Cans of beer per week Drug use: Never FAMILY HISTORY: FAMILY HISTORY Problem Relation Age of Onset COPD Mother Cancer Mother lung Heart disease Father Cancer Father lung, liver, kidney, colon Depression Father Anxiety disorder Father other (cancer) Father Psychiatry Brother No Known Problems Brother Heart disease Maternal Grandmother Heart disease Maternal Grandfather Heart disease Paternal Grandmother Heart disease Paternal Grandfather Multiple Sclerosis Daughter other (apraxia) Son REVIEW OF SYMPTOMS: The review of systems data was entered by the nurse and reviewed by hi Nursing Notes: Kesha Alfaro RN 03/31/2023 8:47 AM Signed REVIEW OF SYSTEMS: General: The patient denies fatigue, denies weight loss, denies weight gain, denies feeling hot, and denies feelings of cold. Eyes: The patient denies glaucoma, denies eye injury/surgery, wears glasses or contacts. Ear/Nose/Throat: The patient NOTES allergies, denies hayfever, denies ear infections, and NOTES bloody noses. Cardiovascular: The patient denies chest pain, denies heart disease, NOTES high blood pressure,denies cardiac stent, denies prior heart attack, denies irregular heart beat, denies high cholesterol, denies poor circulation, denies heart failure, other cardiac issues, denies claudication, denies cold feet, denies peripheral arterial stent. Respiratory: The patient denies tuberculosis, denies pneumonia, denies frequent cough, denies pulmonary embolism, denies shortness of breath, denies coughing up blood and JOSÉ MIGUEL on CPAP. Gastrointestinal: The patient denies difficulty swallowing, denies acid reflux, denies ulcers, denies vomiting, denies jaundice/hepatitis, NOTES gallbladder problems, denies black or tarry stools, denies hemorrhoids, denies bleeding from rectum, denies diverticulitis, denies constipation, denies diarrhea, denies loss of stool control, and NOTES hernias. Kidney/Bladder: The patient denies kidney stones, denies urine infections, and denies bloody urine. Skin: The patient denies a history of skin cancer, denies bleeding/changing moles, and denies a history of skin rash. Neurologic: The patient denies a history of epilepsy/convulsions, denies headaches, denies head/spinal injuries, and denies stroke/TIA. Psychiatric: The patient denies psychiatric medications, denies depression, and denies voices, denies substance abuse. Endocrine: The patient denies thyroid disorders, NOTES diabetes, and denies hormonal problems. Hematologic: The patient denies a history of bruising, denies bleeding, and denies anemia, denies blood clots. Infections: The patient denies a history of measles and mumps, denies rheumatic fever, and denies sexually transmitted diseases. Musculoskeletal: The patient denies back pain/injury, denies back problems, denies sciatica, denies knee/foot trouble, denies arthritis, or denies gout. When was patient's last Mammogram screening? N/A Last Colonoscopy: 02/18/2020 Kesha Alfaro RN PHYSICAL EXAMINATION: General: The patient is 52 year old male, well nourished, well hydrated in no acute distress. The patient is oriented to time, place, and person. VITALS: Blood pressure 130/76, pulse 80, temperature 36.2 C (97.2 F), height 182.9 cm (6'), weight 120.4 kg (265 lb 6.4 oz), SpO2 96 %. Body mass index is 35.99 kg/m . HEENT: Normal cephalic, ataumatic, pupils are equally round, sclera are anicteric, mucous membranes are moist, oropharynx is clear. Neck has no masses, asymmetry or lymphadenopathy. Respiratory: Clear to auscultation and percussion. Normal respiratory excursion and pattern. Cardiac: Examination is regular rate and rhythm. Extremities: no clubbing, cyanosis or edema. No adenopathy. Other: right upper back/posterior shoulder +6 cm mobile rubbery subcutaneous lesion. LABORATORY VALUES: As Noted RADIOLOGIC STUDIES: As Noted Assessment IMPRESSION: subcutaneous lesion right posterior shoulder/upper back, likely lipoma PLAN: Nancy will return for excision of the lesion in the at a later date, to be performed in OR by surgeon due to size and location. The patient is instructed not to take aspirin for 1 week prior to the procedure. Diagnoses: (D17.21) Lipoma of right shoulder Consultation requested by Dr. Hickey for an opinion regarding subcutaneous lesion. My final recommendations will be communicated back to the requesting physician by way of shared Medical record or letter to requesting physician via US mail. Jana Thompson PA-C documented in this encounter [facility] 03-28-2023 Miscellaneous Notes Pt notified of same. Pt was transferred to schedule appointments with [facility]. Clayton Canada LPN As far as I know, [facility] is the only one accepting new patients. Please review message from pt and advise. Liz David Ma Pt is wanting to change primary care providers for him and his Justyna to either [facility] or [facility]. Please advise if either one is willing to accept them as patients. Wifes MRN is [id number]. documented in this encounter [facility] 03-07-2023 History of Present illness Narrative Images from the original note were not included. [facility] Follow up/ Established patient visit Date of last visit : 10/12/2021 The patient presents today to the [facility] [place] for a Sleep Medicine appointment. The medical records available in our [facility] electronic medical record system have been reviewed and pertinent information related to this specific visit are included in this manually typed note. This information will be available to the referring health care provider as well as the patient in the [employer] system. The patient was last seen on 01-02-23. See note for details. [facility] 01/02/2023 Neurology Karli Correa APRN.CNP Neurology JOSÉ MIGUEL (obstructive sleep apnea) +3 more Dx Follow Up Medication Follow-up Sleep Apnea; Referred by Self Reason for Visit Progress Notes Karli Correa APRN.CNP (Nurse Practitioner) Neurology Expand All Collapse All [facility] Follow up/ Established patient visit Visit performed virtually, with the patient's permission. I have communicated my name and active licensure. The patient's identity and physical location were verified at the time of this visit. Either the patient or their legal customer response representative has been informed of the risks and benefits of -- and alternatives to -- treatment through a remote evaluation and consents to proceed with the evaluation remotely. 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 A Home Sleep Test (HST) performed on 09/02/2020 revealed severe JOSÉ MIGUEL (AHI of 36.6) that was associated with a minimum oxygen saturation of 71%; (3% hypopnea scoring; BMI 36.2). A PAP titration study completed on 09/29/2020 showed that a setting of 15 cmH2O normalized the AHI and maintained O2 saturation above 94 %; (3% hypopnea scoring; BMI 36.4). Patient reports compliance with PAP therapy and perceived benefit of treatment. Per download from 08/31/2022 - 09/29/2022, patient uses PAP therapy an average of 7 hours, and PAP use is >/= 4 hours on 93% of nights; Current setting of 8-15 cmH2O is controlling JOSÉ MIGUEL well (residual AHI 2.9). He denies mask or pressure intolerance. He has a longstanding h/o RLS, and has been treated in the past with gabapentin, Lyrica, and dopamine agonists without relief. He is now taking methadone, which is controlling he RLS well. His dose was increased from methadone 5mg QPM to 7.5mg QPM, however he has more recently been using only 5mg every evening most nights, and feels this is adequately controlling his RLS. He would like to reduce his dose of methadone back to 5mg every evening. He denies SE/ADR with current treatment. He has no h/o iron deficiency. He has vitamin D deficiency and was started on Rx vitamin D x 12 weeks by his PCP; he is still completing this course. UDS collected today. He is compliant with appointments and requirements for controlled substance prescribing. PLAN: JOSÉ MIGUEL: - Continue Auto CPAP at current settings of 8-15 cmH2O. - Sleep apnea is presently well controlled! Keep up the great work! - Remember to clean your mask and equipment regularly, as directed. - Avoid use of ozone display manager, SoClean devices, or UV cleaning devices - Avoid using alcohol or alcohol-containing products on your mask, as this may compromise the integrity of the mask materials and contribute to leak issues - Use only baby shampoo and water, mild dish soap and water, or CPAP-specific wipes to clean your supplies. - You should be eligible for new supplies approximately every 3-6 months, depending on your insurance coverage. Contact your [employer] company for new supplies as needed. - Order will be sent to [employer] for supplies: [employer] - [place] RLS: - Will reduce methadone back to 5mg every evening for management of RLS - Will only send 1 month supply of methadone, due to desire to change to [facility] next month - Contact us for refills once [facility] is open - In accordance with department regulations, in order for controlled substances to be prescribed, you must be evaluated by a Sleep physician at least once yearly, and must attend at least one in-person visit per year. - Your medications require that you follow-up every 3 months for refills. - Other requirements for use of controlled substances may include urine tox screenings and EKGs/cardiac evaluations. - Utox ordered and completed in office today - Schedule 3 month follow-up visit with [facility]. This visit may be scheduled for in-office or virtual. - Schedule appt for Feb [address] Donovan Correa APRN.MARTA I spent a total of 30 minutes on the date of the service which included preparing to see the patient, [id number] patient care, completing clinical documentation, obtaining and/or reviewing separately obtained history, performing a medically appropriate examination, counseling and educating the patient/family/caregiver, and ordering medications, tests, or procedures. ADDENDUM: RLS uncontrolled on methadone 5mg nightly and keeping patient awake. Will increase back to methadone 7.5 mg nightly as per pt request. Karli Correa APRN.MARTA 11/25/22 5:24 PM Here for follow up for JOSÉ MIGUEL, RLS on methadone Interval history : He has resumed methadone 7.5mg nightly and is tolerating this dose well. His RLS is well controlled presently and he denies SE/ADR. CPAP has been a struggle. He reports he is constantly readjusting his mask during the night. He also struggles with the hose needing to be moved around at night due to tugging. He has tried hanging the hose and using hose supports without relief of tugging. He has some mild claustrophobia with the mask, and sometimes feels he breathes better without it during the night. He feels PAP has been cumbersome. The mask vent blows on during the night and is bothersome to her as well. SLEEP APNEA A Home Sleep Test (HST) performed on 09/02/2020 revealed severe JOSÉ MIGUEL (AHI of 36.6) that was associated with a minimum oxygen saturation of 71%; (3% hypopnea scoring; BMI 36.2). A PAP titration study completed on 09/29/2020 showed that a setting of 15 cmH2O normalized the AHI and maintained O2 saturation above 94 %; (3% hypopnea scoring; BMI 36.4). Sleep apnea type : JOSÉ MIGUEL, Most Recent Apnea-Hypopnea Index (AHI): 36.6 Treatment : PAP therapy DME: [facility] PAP History: Uses AutoPAP for 7 hours per night, 7 nights per week. Current PAP settin-15 cm H2O. Difficulties with AutoPAP: None Reviewed objective PAP compliance data: Yes Mask type: nasal mask Mask issues: mild claustrophobia during the night ; hose tugging on mask Uses chin strap: No Uses humidity: Distilled water There is a perceived benefit by the patient: Yes Observers report abolition of snoring with AutoPAP use. ------- RLS: Treatment: Methadone 7.5 mg (1.5 x 5mg tab) - typically takes around 7:00 pm Status: Improved He tried decreasing dose to 5mg nightly due to good RLS control, but developed recurrence of RLS sx and dose was resumed at 7.5mg nightly. Symptom free all day on current tx. -Medication: Methadone 7.5mg (1.5 x 5mg tab) every evening -Timin PM -Side effects: Denies -Benefit: Yes -Last filled: 12/28/2022 (#45 for 30 day supply) Prior treatment: -Lyrica -Gabapentin -Pramipexole -[place] PDMP website checked and validated. All prescriptions have been APPROPRIATELY filled. No suspicious activity was identified. 01/02/2023 by Karli Correa APRN.STOGY ROLLER Urine tox: Latest Reference Range & Units 10/26/22 11:30 Amphetamines Negative Negative Barbiturates Negative Negative Benzodiazepines Urine Negative Negative Cocaine Urine Negative Negative Cannabinoids, Urine Negative Negative Ethanol, Urine <11 mg/dL <11 Opiates Negative Negative Phencyclidine Negative Negative Oxycodone, Urine Negative Negative State of Residence: [place] Pharmacy: [facility] Contributing Factors: - Untreated JOSÉ MIGUEL -- No - Antidepressants -- Zoloft 50mg daily Has not taken iron in last 5 years. Ferritin Date Value Ref Range Status 07/06/2021 308.0 30.3 - 565.7 ng/mL Final 01/02/2021 378.0 30.3 - 565.7 ng/mL Final 08/02/2019 280.0 30.3 - 565.7 ng/mL Final Transferrin Saturation Date Value Ref Range Status 07/06/2021 37 15 - 57 % Final 01/02/2021 44 15 - 57 % Final 08/02/2019 23 15 - 57 % Final Iron Date Value Ref Range Status 07/06/2021 91 41 - 186 ug/dL Final 01/02/2021 112 41 - 186 ug/dL Final 08/02/2019 74 41 - 186 ug/dL Final TIBC Date Value Ref Range Status 07/06/2021 249 232 - 386 ug/dL Final 01/02/2021 255 232 - 386 ug/dL Final 08/02/2019 316 232 - 386 ug/dL Final Hemoglobin Date Value Ref Range Status 07/30/2022 15.4 13.0 - 17.0 g/dL Final 06/15/2022 15.3 13.0 - 17.0 g/dL Final Vitamin D 25 Hydroxy Date Value Ref Range Status 10/12/2022 56.4 31.0 - 80.0 ng/mL Final Comment: Classification of 25 OH Vitamin D status: Deficiency/Insufficiency: < or = 30 ng/ml. Sufficiency/Optimal Levels: 31-80 ng/mL Toxicity: > 100 ng/mL. Test performed by chemiluminescent immunoassay. 07/30/2022 19.1 (L) 31.0 - 80.0 ng/mL Final Comment: Classification of 25 OH Vitamin D status: Deficiency/Insufficiency: < or = 30 ng/ml. Sufficiency/Optimal Levels: 31-80 ng/mL Toxicity: > 100 ng/mL. Test performed by chemiluminescent immunoassay. 08/13/2021 12.4 (L) 31.0 - 80.0 ng/mL Final Comment: Classification of 25 OH Vitamin D status: Deficiency/Insufficiency: < or = 30 ng/ml. Sufficiency/Optimal Levels: 31-80 ng/mL Toxicity: > 100 ng/mL. Test performed by chemiluminescent immunoassay. SLEEP HYGIENE QUESTIONS: Work has been changing a lot, and his schedule has been shifting. Bedtime : if not working nights, 10-11 PM ; if working nights, ~ 2-3 AM Wake up Time : it not working nights, 6-7 AM ; when working nights, 10 AM - 12 PM Time it takes to fall sleep : no issues Number of times patient wakes up per night : once nightly to urinate; a few times to reposition mask or hose; no trouble falling back asleep Estimated total sleep time ( in a 24 hour period of time) : 6-8 hours Naps : occasionally on weekends; rare 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 Sleep Questions 12/26/2022 Reason for visit: Sleep apnea, Restless Legs Syndrome Average hours slept in 24 hours: - Average hours of CPAP per night: 6.5 Percent of nights CPAP used at least 4 hours: 100 Accidents or near accidents due to drowsy drivin Sullivan Sleepiness Scale 07/29/2022 09/30/2022 12/26/2022 Score 2 (No daytime sleepiness) 4 (No daytime sleepiness) 4 (No daytime sleepiness) PROMIS CAT Sleep Disturbance 07/29/2022 09/30/2022 12/26/2022 PROMIS Sleep Disturbance T-Score 63 (moderate) 38 (within normal limits) 46 (within normal limits) PROMIS Sleep Disturbance Percentile 10 % 88 % 66 % Insomnia Severity Index 02/26/2020 12/09/2021 07/29/2022 Score 26 19 14 Restless Leg Syndrome 07/29/2022 09/30/2022 12/26/2022 Score 24 23 18 PHQ-9 07/30/2022 09/30/2022 12/26/2022 Score 16 3 7 PROMIS Global Health - (T-Scores - the mean of general population = 50. Five points is a clinically meaningful difference.) 06/13/2022 09/30/2022 12/26/2022 Physical T-Score 54.1 54.1 47.7 Mental T-Score 33.8 53.3 48.3 PMH, PSH, SH: Reviewed SLEEP RELATED ROS Review of Systems Constitutional: Positive for fatigue (occasional). HENT: Positive for congestion (intermittent ; has deviated septum). Cardiovascular: Negative for chest pain and palpitations. Gastrointestinal: Negative for constipation. Genitourinary: Positive for nocturia (once nightly). Musculoskeletal: Positive for arthralgias. Negative for uncomfortable leg sensations. Neurological: Negative for dizziness. ALLERGIES ALLERGIES No Known Allergies CURRENT MEDICATIONS: CURRENT MEDICATIONS methadone (DOLOPHINE) 5 mg tablet Take 1.5 tablets by mouth every evening for 30 days. For refractory restless leg syndrome. sertraline (ZOLOFT) 50 mg tablet Take 1 tablet by mouth once daily. metFORMIN (GLUCOPHAGE) 500 mg tablet Take 1 tablet by mouth twice daily with meals. testosterone cypionate (DEPO-TESTOSTERONE) 200 mg/mL injection Inject 1 mL intramuscularly every 2 weeks for 90 days. methadone (DOLOPHINE) 5 mg tablet Take 1 tablet by mouth every evening for 30 days. For refractory restless leg syndrome. Do not start before November 09, 2022. lisinopril-hydroCHLOROthiazide (ZESTORETIC) 20-12.5 mg per tablet Take 2 tablets by mouth once daily. CPAP/BIPAP/OTHER Continue Auto CPAP with current settings of 8-15 cm H2O. Lifetime supplies for Auto CPAP, including patient preferred mask, head gear, heated tubing, humidity, filters, chin strap. Dx: Obstructive Sleep Apnea G47.33 DME: [employer] [facility] Tadalafil (CIALIS) 5 mg tablet Take 1 tablet by mouth once daily. white petrolatum-mineral Oil (ARTIFICIAL TEARS, CASS/MIN,) 83-15 % oint Use 1 application in the left eye daily at bedtime. cholecalciferol, Vitamin D3, (VITAMIN D3) 1,250 mcg (50,000 unit) cap capsule Take 1 capsule by mouth one time a week. atorvastatin (LIPITOR) 20 mg tablet Take 1 tablet by mouth daily at bedtime. For cholesterol. CPAP Provide lifetime supplies for AutoPAP 8-15 cm H20 including nasal pillow mask, heated tubing, humidity, filters and fax download report to assess residual AHI to [phone]. Dx: G47.33 CPAP Increase autopap pressure to 8-15 cm of water with humidification. Mask (per patient preference) optional chin strap (if indicated) , filters, tubing, humidifier and lifetime supplies. Syringe with Needle, Disp, 3 mL 25 x 1 1/2 1 Each every 2 weeks. Prior Hypersomnia/Narcolepsy Medications (20 years) Some values may be hidden. Unless noted otherwise, only the newest values recorded on each date are displayed. Hypersomnia/Narcolepsy Medications No data to display. Prior RLS Medications (last 20 years) Some values may be hidden. Unless noted otherwise, only the newest values recorded on each date are displayed. RLS Medications meperidine (PF) 12.5 mg injection (DEMEROL) Dose: 12.5 mg ONCE May Repeat 12.5 mg in 10 minutes X1 for Continued Shivering Starting date: 08/21/2021 Ending date: 08/21/2021 (Discontinued) methadone (DOLOPHINE) 5 mg tablet Dose: 2.5 mg DAILY IN THE LATE AFTERNOON For RLS-pain Starting date: 03/20/2021 Ending date: 03/26/2021 (Discontinued) methadone (DOLOPHINE) 5 mg tablet Dose: 5 mg DAILY IN THE LATE AFTERNOON For RLS-pain Starting date: 03/26/2021 Ending date: 04/18/2021 (Discontinued) methadone (DOLOPHINE) 5 mg tablet Dose: 5 mg DAILY IN THE LATE AFTERNOON For RLS-pain Starting date: 04/25/2021 Ending date: 05/16/2021 (Discontinued) methadone (DOLOPHINE) 5 mg tablet Dose: 5 mg DAILY IN THE LATE AFTERNOON For RLS-pain Starting date: 07/24/2021 Ending date: 07/06/2021 (Discontinued) methadone (DOLOPHINE) 5 mg tablet Dose: 5 mg DAILY IN THE LATE AFTERNOON For RLS-pain Starting date: 06/24/2021 Ending date: 07/06/2021 (Discontinued) methadone (DOLOPHINE) 5 mg tablet Dose: 5 mg DAILY IN THE LATE AFTERNOON For RLS-pain Starting date: 05/25/2021 Ending date: 07/06/2021 (Discontinued) methadone (DOLOPHINE) 5 mg tablet Dose: 1 tablet po q bedtime for treatment refractory restless legs syndrome Starting date: 12/13/2021 Ending date: 01/11/2022 (Discontinued) methadone (DOLOPHINE) 5 mg tablet Dose: 1 tablet po q bedtime for treatment refractory restless legs syndrome Do not start before January 13, 2022. Starting date: 01/13/2022 Ending date: 02/11/2022 (Discontinued) methadone (DOLOPHINE) 5 mg tablet Dose: 1 tablet po q bedtime for treatment refractory restless legs syndrome Starting date: 02/11/2022 Ending date: 03/14/2022 (Discontinued) methadone (DOLOPHINE) 5 mg tablet Dose: 1 tablet po q bedtime for treatment refractory restless legs syndrome Starting date: 03/14/2022 Ending date: 04/08/2022 (Discontinued) methadone (DOLOPHINE) 5 mg tablet Dose: 1 tablet po q bedtime for treatment refractory restless legs syndrome Do not start before April 13, 2022. Starting date: 04/13/2022 Ending date: 06/09/2022 (Discontinued) methadone (DOLOPHINE) 5 mg tablet Dose: 1 tablet at night for refractory RLS pain Do not start before May 13, 2022. Starting date: 05/13/2022 Ending date: 09/30/2022 (Discontinued) methadone (DOLOPHINE) 5 mg tablet Dose: 1 tablet po q bedtime for treatment refractory restless legs syndrome Starting date: 06/11/2022 Ending date: 06/20/2022 (Discontinued) methadone (DOLOPHINE) 5 mg tablet Dose: 1 tablet po q bedtime for treatment refractory restless legs syndrome Do not start before July 11, 2022. Starting date: 07/11/2022 Ending date: 08/02/2022 (Discontinued) methadone (DOLOPHINE) 5 mg tablet Dose: 7.5 mg EVERY EVENING 1.5 tablet po q bedtime for treatment refractory restless legs syndrome Starting date: 08/09/2022 Ending date: 09/30/2022 (Discontinued) methadone (DOLOPHINE) 5 mg tablet Dose: 7.5 mg EVERY EVENING For refractory restless leg syndrome. Starting date: 09/08/2022 Ending date: 09/30/2022 (Discontinued) methadone (DOLOPHINE) 5 mg tablet Dose: 7.5 mg EVERY EVENING for treatment refractory restless legs syndrome Starting date: 10/08/2022 Ending date: 09/30/2022 (Discontinued) methadone (DOLOPHINE) 5 mg tablet Dose: 5 mg EVERY EVENING For refractory restless leg syndrome. Starting date: 10/07/2022 Ending date: 11/04/2022 (Discontinued) methadone (DOLOPHINE) 5 mg tablet Dose: 5 mg EVERY EVENING For refractory restless leg syndrome. Starting date: 11/09/2022 Ending date: 12/09/2022 methadone (DOLOPHINE) 5 mg tablet Dose: 7.5 mg EVERY EVENING For refractory restless leg syndrome. Starting date: 11/25/2022 Ending date: 12/23/2022 (Discontinued) methadone (DOLOPHINE) 5 mg tablet Dose: 7.5 mg EVERY EVENING For refractory restless leg syndrome. Starting date: 12/24/2022 Ending date: 01/23/2023 methadone 5 mg/5 mL solution Dose: 4 mg EVERY EVENING For RLS-pain Starting date: 07/06/2021 Ending date: 07/31/2021 (Discontinued) methadone 5 mg/5 mL solution Dose: 4 mg EVERY EVENING For RLS-pain Starting date: 07/31/2021 Ending date: 09/03/2021 (Discontinued) methadone 5 mg/5 mL solution Dose: 4 mg EVERY EVENING For RLS-pain Starting date: 09/03/2021 Ending date: 09/26/2021 (Discontinued) methadone 5 mg/5 mL solution Dose: 4 mg EVERY EVENING For RLS-pain Starting date: 10/06/2021 Ending date: 10/05/2021 (Discontinued) methadone 5 mg/5 mL solution Dose: 4 mg EVERY EVENING For RLS-pain Starting date: 11/05/2021 Ending date: 12/13/2021 (Discontinued) methadone 5 mg/5 mL solution Dose: 4 mg EVERY EVENING For RLS-pain Starting date: 10/05/2021 Ending date: 12/13/2021 (Discontinued) oxyCODONE IR 5 mg tab(s) (ROXICODONE) Dose: 5 mg NEEDED Starting date: 08/21/2021 Ending date: 08/21/2021 (Discontinued) oxyCODONE IR (ROXICODONE) 5 mg immediate release tablet Dose: 5 mg EVERY 6 HOURS NEEDED for more severe postop pain after surgery. Starting date: 08/20/2021 Ending date: 08/27/2021 Pramipexole (MIRAPEX ER) 0.375 mg Tb24 Dose: 1.125 mg EVERY EVENING And decrease as recommended by physician Starting date: 12/26/2020 Ending date: 03/23/2021 (Discontinued) Pramipexole (MIRAPEX ER) 1.5 mg Tb24 Dose: 1.5 mg AT BEDTIME Starting date: Ending date: 08/02/2019 (Discontinued) Pramipexole (MIRAPEX ER) 1.5 mg Tb24 Dose: 1.5 mg EVERY EVENING Starting date: 12/26/2020 Ending date: 03/23/2021 (Discontinued) pramipexole (MIRAPEX) 0.5 mg tablet Dose: 0.5 mg 2 TIMES DAILY (Patient taking differently: 0.5 mg BID as of 09/21/2019 8:20 AM) Starting date: 08/19/2019 Ending date: 11/16/2019 (Discontinued) rOPINIRole (REQUIP) 0.5 mg tablet Dose: 0.5 mg AT BEDTIME Starting date: 08/02/2019 Ending date: 08/04/2019 (Discontinued) rOPINIRole (REQUIP) 1 mg tablet Dose: 1 mg AT BEDTIME Starting date: 08/04/2019 Ending date: 08/19/2019 (Discontinued) rotigotine (NEUPRO) 1 mg/24 hour patch Dose: 1 Patch DAILY Starting date: 11/16/2019 Ending date: 11/29/2019 (Discontinued) rotigotine (NEUPRO) 2 mg/24 hour patch Dose: 2 mg DAILY Starting date: 11/29/2019 Ending date: 12/09/2019 (Discontinued) rotigotine (NEUPRO) 3 mg/24 hour patch Dose: 1 Patch DAILY Starting date: 12/09/2019 Ending date: 12/09/2019 (Discontinued) rotigotine (NEUPRO) 3 mg/24 hour patch Dose: 1 Patch DAILY Starting date: 12/09/2019 Ending date: 12/09/2019 (Discontinued) rotigotine (NEUPRO) 3 mg/24 hour patch Dose: 1 Patch DAILY Starting date: 12/09/2019 Ending date: 12/28/2019 (Discontinued) rotigotine (NEUPRO) 3 mg/24 hour patch Dose: 1 Patch DAILY Starting date: 12/28/2019 Ending date: 12/26/2020 (Discontinued) Medication marked as long-term Prior Insomnia Medications (last 20 years) Some values may be hidden. Unless noted otherwise, only the newest values recorded on each date are displayed. Insomnia Medications midazolam (PF) injection (VERSED) Dose: Starting date: 02/18/2020 Ending date: 02/18/2020 (Discontinued) midazolam (PF) injection (VERSED) Dose: Starting date: 08/21/2021 Ending date: 08/21/2021 midazolam (PF) injection (VERSED) Dose: Starting date: 08/21/2021 Ending date: 08/21/2021 (Discontinued) sertraline (ZOLOFT) 50 mg tablet Dose: 50 mg DAILY Starting date: 07/30/2022 Ending date: 10/30/2022 (Discontinued) sertraline (ZOLOFT) 50 mg tablet Dose: 50 mg DAILY Starting date: 10/30/2022 Ending date: 11/19/2022 (Discontinued) sertraline (ZOLOFT) 50 mg tablet Dose: 50 mg DAILY Starting date: 11/20/2022 (active) Medication marked as long-term PHYSICAL EXAMINATION: Vital signs not obtained d/t virtual visit. General appearance: NAD, well groomed HEENT: Normocephalic, atraumatic Neuro: Awake, alert, memory grossly intact, speech is fluent Respiratory: No increased work of breathing; able to speak in complete sentences Psych: Appropriate, normal affect IMPRESSION: José Miguel (obstructive sleep apnea) (primary encounter diagnosis) Intolerance of continuous positive airway pressure (cpap) ventilation Restless legs syndrome (rls) Encounter for long-term opiate analgesic use Nancy Ronald Enamorado is a pleasant 52 year old male with PMH of JOSÉ MIGUEL on CPAP, RLS, small fiber polyneuropathy, brachial neuritis, HTN, hypertriglyceridemia, drug induced constipation, hypogonadism, 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 A Home Sleep Test (HST) performed on 09/02/2020 revealed severe JOSÉ MIGUEL (AHI of 36.6) that was associated with a minimum oxygen saturation of 71%; (3% hypopnea scoring; BMI 36.2). A PAP titration study completed on 09/29/2020 showed that a setting of 15 cmH2O normalized the AHI and maintained O2 saturation above 94 %; (3% hypopnea scoring; BMI 36.4). Patient reports compliance with PAP therapy and perceived benefit of treatment, however, he is struggling with his CPAP causing disruption to sleep. Per download from 12/02/2022 - 12/31/2022, patient uses PAP therapy an average of 6.5-7 hours, and PAP use is >/= 4 hours on 97% of nights; Current setting of 8-15 cmH2O is controlling JOSÉ MIGUEL well (residual AHI 4.6). He reports he is constantly readjusting his mask during the night. He also struggles with the hose needing to be moved around at night due to tugging. He has tried hanging the hose and using hose supports without relief of tugging and disruption. He has some mild claustrophobia with the mask, and sometimes feels he needs to remove it at night to breathe. He feels CPAP has been very cumbersome. The mask vent blows air onto during the night and is bothersome to her as well. He is interested in alternatives to PAP therapy, particularly Inspire. Inspire was discussed today at length, including criteria for qualification, MOA, and care pathway. He has a longstanding h/o RLS, and has been treated in the past with gabapentin, Lyrica, and dopamine agonists without relief. He is now taking methadone 7.5mg nightly, which is controlling he RLS well. He denies SE/ADR with current treatment. He has no h/o iron deficiency. He has vitamin D deficiency and completed Rx vitamin D x 12 weeks by his PCP. He is compliant with appointments and requirements for controlled substance prescribing. PLAN: JOSÉ MIGUEL: - Continue Auto CPAP at increased settings of 11-15 cmH2O for the time being (settings changed remotely in AirSpectral Edge system) - We will see if increased settings makes CPAP more comfortable during the night and prevents you from feeling a need to remove the mask - If you do not tolerate these changes, please let me know and we can readjust. - Remember to clean your mask and equipment regularly, as directed. - Avoid use of ozone display manager, SoClean devices, or UV cleaning devices - Avoid using alcohol or alcohol-containing products on your mask, as this may compromise the integrity of the mask materials and contribute to leak issues - Use only baby shampoo and water, mild dish soap and water, or CPAP-specific wipes to clean your supplies. - You should be eligible for new supplies approximately every 3-6 months, depending on your insurance coverage. Contact your Durable Medical Equipment (DME) company for new supplies as needed. - DME: [employer] [facility] [employer] - Given reported intolerance to CPAP and difficulties with use, we will refer to ENT for consideration of Inspire - Call to schedule as discussed - Inspire criteria, MOA, and treatment pathway reviewed - As discussed, mild weight loss may be needed to qualify RLS: - Continue methadone 7.5mg nightly for RLS symptoms - Prescriptions for Jan & Feb 2023 provided - In accordance with department regulations, in order for controlled substances to be prescribed, you must be evaluated by a Sleep physician at least once yearly, and must attend at least one in-person visit per year. - Your medications require that you follow-up every 3 months for refills. - Other requirements for use of controlled substances may include urine tox screenings and EKGs/cardiac evaluations. - Utox completed 09/2022 - Scheduled 03/07/[address] Man - Keep scheduled follow-up visit with Dr. Donovan Correa APRN.STOGY ROLLER I spent a total of 35 minutes on the date of the service which included preparing to see the patient, [id number] patient care, completing clinical documentation, obtaining and/or reviewing separately obtained history, performing a medically appropriate examination, counseling and educating the patient/family/caregiver, and ordering medications, tests, or procedures. Note Details Instructions Return for as scheduled with Dr. Man. PLAN: JOSÉ MIGUEL: - Continue Auto CPAP at increased settings of 11-15 cmH2O for the time being (settings changed remotely in AirView system) - We will see if increased settings makes CPAP more comfortable during the night and prevents you from feeling a need to remove the mask - If you do not tolerate these changes, please let me know and we can readjust. - Remember to clean your mask and equipment regularly, as directed. - Avoid use of ozone display manager, SoClean devices, or UV cleaning devices - Avoid using alcohol or alcohol-containing products on your mask, as this may compromise the integrity of the mask materials and contribute to leak issues - Use only baby shampoo and water, mild dish soap and water, or CPAP-specific wipes to clean your supplies. - You should be eligible for new supplies approximately every 3-6 months, depending on your insurance coverage. Contact your Durable Medical Equipment (DME) company for new supplies as needed. - DME: [employer] [facility] [employer] - Given reported intolerance to CPAP and difficulties with use, we will refer to ENT for consideration of Inspire - Call to schedule with Dr. Riley or Dr. Thompson - As discussed, mild weight loss may be needed to qualify RLS: - Continue methadone 7.5mg nightly for RLS symptoms - In accordance with department regulations, in order for controlled substances to be prescribed, you must be evaluated by a Sleep physician at least once yearly, and must attend at least one in-person visit per year. - Your medications require that you follow-up every 3 months for refills. - Other requirements for use of controlled substances may include urine tox screenings and EKGs/cardiac evaluations. - Utox completed 09/2022 - Scheduled 03/07/[address] Man - Keep scheduled follow-up visit with Dr. Man Hypoglossal Nerve Stimulation (Inspire) Therapy [facility] for JOSÉ MIGUEL Hypoglossal Nerve Stimulation (HGNS) For certain patients who cannot tolerate other therapy for obstructive sleep apnea, hypoglossal nerve stimulation can be a consideration. This therapy was FDA approved in 2014 for treatment in certain patients. Criteria Include (but are not limited to): 1. Moderate to severe obstructive sleep apnea (AHI/KIMBERLEY 15-65) 2. BMI (body mass index) of 32kg/m2 or less (35kg/m2 for Medicare) 3. Age 18 and above 4. An inability to successfully use CPAP -usage < 4hrs/night, 70% of nights The system works by stimulating the tongue muscles during sleep in order to keep your airway open. Surgery includes 2 different surgical sites. An incision under your jaw is where we place the stimulation lead to the nerve that works the tongue muscles. The upper chest is where we place the pulse generator and sensor to track your breathing. Surgery is usually performed as an outpatient under general anesthesia. Pathway to Placement If, after discussion with your doctor, you are a candidate for Inspire therapy, there are a few steps that must be undertaken: 1. Sleep endoscopy. The original studies included this brief procedure to decide who would benefit from implantation. This procedure requires deep sedation where you are asleep but breathing on your own. While asleep, a small flexible scope is passed into your nose and used to look at the pattern of collapse of your throat. Certain patterns are associated with successful implantation and one is not. If you are a potential successful candidate then we would go to the next step. 2. Insurance approval. Because this is a newer therapy many insurances do not automatically cover this therapy. We submit the surgical request to your insurance company and wait for their decision. We are successful in obtaining coverage in many, but not all, cases. 3. Once we obtain insurance approval, we can schedule surgery. Surgery and After Surgery is scheduled as an outpatient procedure under general anesthesia. The actual surgery takes approximately 2 hours. You will go home the same day in most cases. You should avoid heavy lifting for 2 weeks after surgery and should not lift your arm above your shoulder for 10 days. After surgery: 1. We will schedule a surgical follow up one week after surgery to check the surgical sites. 2. Most patients can return to work in 7-10 days. Light activities, including light exercise can be resumed at 10 days. If you have a job or activity that involves heavy physical activity or work in a dirty environment, you may not be able return to full duty for 3-4 weeks. Please discuss this with your surgeon. Activation, Acclimation, and Beyond 1. One month after surgery you will have an appointment with one of the sleep center providers who program the device for you to start using on a nightly basis. - [facility] sleep center providers have locations at [place] (Mondays), [facility] (Tuesdays), [place] (Friday). - All sleep center provider appointments will be arranged through the [facility] (Inspire) nurse coordinator ([phone]). 2. You will have follow ups every 6-8 weeks in the office with the sleep provider until you are comfortable with the device, using it regularly and stimulation appears to be effective in treating your JOSÉ MIGUEL. 3. An in lab overnight sleep study will be performed to ensure that the stimulation level is optimal. 4. You will have follow ups in the office with the sleep provider every 3-6 months to ensure that the device is still working properly. 5. There may be other sleep studies needed on an as needed basis to check that you are adequately treated 6. Some patients need additional adjustments to the device if an ideal setting cannot be determined on a sleep study, which requires in office appointments. 7. Please remember that this is a battery powered device which lasts about 10 years. A brief surgery at that time will be needed to replace the pulse generator in the upper chest for another 10 years of therapy. 8. The newest Inspire device is compatible with 1.5 Rita MRI for the entire body. 9. You will need to carry a card that identifies you as having an implanted director of medical staff services when going through security scanners. [employer] has more information on their website or on a mobile phone bing. Connection information is below. Desktop: http://bing.Placements.io Mobile: Text the keyword INSPIRESLEEP to 475-965 and follow the directions to save to phone. Contacting the Sleep Disorders Center: - Appointments can be scheduled through the central scheduling system for the [facility] at [phone]. - Call the Sleep Disorders Center at [phone] for questions. - May use Message [employer] Doc through [employer] for questions. - [facility] website: [email or web address] After Visit Summary (Automatic SnapShot taken 01/02/2023) Additional Documentation Vitals: Ht 182.9 cm (6') Wt 120.2 kg (265 lb) BMI 35.94 kg/m BSA 2.47 m Flowsheets: Patient-Reported Data, Sullivan Sleepiness Scale, MSPT PED Full Patient-Entered Data, [facility] Neighborhood [place] Scores - [email or web address]/, [facility] PDMP NARXCARE SCORES ...(2 more) SmartForms: PHYSICIAN / PATIENT LOCATION ADVANCED Encounter Info: Billing Info, History, Allergies, Detailed Report Communications View All Conversations on this Encounter Chart Routed to [facility] Benefits NANCY ENAMORADO [facility]) Covered: Retail, Mail Order Unknown: Specialty, Long-Term Care Group ID: [id number] Group name: MELISSATebla CORIE BIN: [id number] PCN: : [id number] Legal sex: M Address: [address] [place] [id number] Travel Screening and History Disease Screening Row Name 12/26/22204912/26/222048 In general, would you say your health is: -- 4 In general, would you say your quality of life is: -- 4 In general, how would you rate your physical health? -- 4 In general, how would you rate your mental health, including your mood and your ability to think? -- 3 Abnormal In general, how would you rate your satisfaction with your social activities and relationships? -- 4 To what extent are you able to carry out your everyday physical activities such as walking, climbing stairs, carrying groceries, or moving a chair? -- 4 Abnormal In the past 7 days, how would you rate your pain on average? -- 6 Abnormal In the past 7 days, how would you rate your fatigue on average? -- 4 In general, please rate how well you carry out your usual social activities and roles. (This includes activities at home, at work and in your community, and responsibilities as a parent, child, spouse, employee, friend, etc.) -- 4 In the past 7 days, how often have you been bothered by emotional problems such as feeling anxious, depressed or irritable? -- 3 Abnormal If you checked off any problems, how difficult have these problems made it for you to do your work, take care of things at home, or get along with other people? Somewhat difficult -- Little interest or pleasure in doing things 0 -- Feeling down, depressed, or hopeless 1 -- Trouble falling or staying asleep, or sleeping too much 1 -- Feeling tired or having little energy 2 -- Poor appetite or overeating 2 -- Feeling bad about yourself - or that you are a failure or have let yourself or your family down 1 -- Trouble concentrating on things, such as reading the newspaper or watching television 0 -- Moving or speaking so slowly that other people could have noticed. Or the opposite - being so fidgety or restless that you have been moving around a lot more than usual 0 -- Thoughts that you would be better off , or of hurting yourself in some way 0 -- Row Name 12/26/22204612/26/222045 Sitting and Reading? -- 1 Watching TV? -- 1 Sitting inactive in a public place (e.g a theater or a meeting) -- 0 As a passenger in a car for an hour without a break? -- 0 Lying down to rest in the afternoon when circumstances permit? -- 2 Sitting and talking to someone? -- 0 Sitting quietly after lunch without alcohol? -- 0 In a car, while stopped for a few minutes in traffic? -- 0 Overall, how would you rate the RLS discomfort in your legs or arms? 1 -- Overall, how would you rate the need to move around because of your RLS symptoms? 1 -- Overall, how much relief of your RLS arm or leg discomfort do you get from moving around? 3 -- Overall, how severe is your sleep disturbance from your RLS symptoms? 1 -- How severe is your tiredness or sleepiness from your RLS symptoms? 1 -- Overall, how severe is your RLS as a whole? 1 -- How often do you get RLS symptoms? 4 -- When you have RLS symptoms, how severe are they on an average day? 1 -- Overall, how severe is the impact of your RLS symptoms on your ability to carry out your daily affairs, for example carrying out a satisfactory family, home, social, school or work life? 3 -- How severe is your mood disturbance from your RLS symptoms - for example, angry, depressed, sad, anxious or irritable? 2 -- Row Name 12/26/222042 Has the Patient Had 2 Falls in the Last Year or 1 Fall with Injury or Currently Using an Ambulatory Assistive Device (Walker, Cane, Wheelchair, Crutches, etc.) No Are you having pain associated with your visit today? No Orders Placed CONSULT TO SLEEP SURGERY-ADULT Medication Changes methadone HCl 7.5 mg ORAL EVERY EVENING, For refractory restless leg syndrome. 7.5 mg ORAL EVERY EVENING Medication List Visit Diagnoses JOSÉ MIGUEL (obstructive sleep apnea) Intolerance of continuous positive airway pressure (CPAP) ventilation Restless legs syndrome (RLS) Encounter for long-term opiate analgesic use Problem List Continuation Of My Current Clinical Note: Note that the following is the continuation of my clinical note above the Physician/Advanced Practicing Nurse note or Sleep Study result report that is attached immediately above. Methadone was continued. Autopap was continued. He is interested in optaining the Inspire device. He needs to lose about 23 pounds in order to qualify. 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 Sleep Questions 02/28/2023 Reason for visit: Sleep apnea, Restless Legs Syndrome Average hours slept in 24 hours: - Average hours of CPAP per night: 7 Percent of nights CPAP used at least 4 hours: 100 Accidents or near accidents due to drowsy drivin Sullivan Sleepiness Scale 09/30/2022 12/26/2022 02/28/2023 Score 4 (No daytime sleepiness) 4 (No daytime sleepiness) 7 (No daytime sleepiness) PROMIS CAT Sleep Disturbance 09/30/2022 12/26/2022 02/28/2023 PROMIS Sleep Disturbance T-Score 38 (within normal limits) 46 (within normal limits) 56 (mild) PROMIS Sleep Disturbance Percentile 88 % 66 % 27 % Insomnia Severity Index 12/09/2021 07/29/2022 02/28/2023 Score 19 14 12 Restless Leg Syndrome 09/30/2022 12/26/2022 02/28/2023 Score 23 18 13 PHQ-9 12/26/2022 02/28/2023 02/28/2023 Score 7 8 7 PROMIS Global Health - (T-Scores - the mean of general population = 50. Five points is a clinically meaningful difference.) 06/13/2022 09/30/2022 12/26/2022 Physical T-Score 54.1 54.1 47.7 Mental T-Score 33.8 53.3 48.3 PMH, PSH, SH: as before SLEEP RELATED ROS Review of Systems ALLERGIES Allergen Reactions Metformin Intolerance Muscle aches, increase stool CURRENT MEDICATIONS: Tadalafil (CIALIS) 5 mg tablet Take 1 tablet by mouth once daily. blood sugar diagnostic (BLOOD GLUCOSE TEST) test strip Test blood sugar(s) 1-2 times daily. Dx: Type 2 DM - Uncontrolled E11.65 Insulin: No Lancets lancets Test blood sugar(s) 1-2 times daily. Dx: Type 2 DM - Uncontrolled E11.65 Insulin: No semaglutide (OZEMPIC) 0.25 mg or 0.5 mg (2 mg/3 mL) pen Inject 0.25 mg subcutaneously one time a week. methadone (DOLOPHINE) 5 mg tablet Take 1.5 tablets by mouth every evening for 30 days. Do not start before February 26, 2023. sertraline (ZOLOFT) 50 mg tablet Take 1 tablet by mouth once daily. testosterone cypionate (DEPO-TESTOSTERONE) 200 mg/mL injection Inject 1 mL intramuscularly every 2 weeks for 90 days. lisinopril-hydroCHLOROthiazide (ZESTORETIC) 20-12.5 mg per tablet Take 2 tablets by mouth once daily. CPAP/BIPAP/OTHER Continue Auto CPAP with current settings of 8-15 cm H2O. Lifetime supplies for Auto CPAP, including patient preferred mask, head gear, heated tubing, humidity, filters, chin strap. Dx: Obstructive Sleep Apnea G47.33 DME: [employer] [facility] atorvastatin (LIPITOR) 20 mg tablet Take 1 tablet by mouth daily at bedtime. For cholesterol. CPAP Provide lifetime supplies for AutoPAP 8-15 cm H20 including nasal pillow mask, heated tubing, humidity, filters and fax download report to assess residual AHI to [phone]. Dx: G47.33 Syringe with Needle, Disp, 3 mL 25 x 1 1/2 1 Each every 2 weeks. (Patient not taking: Reported on 03/04/2023) PHYSICAL EXAMINATION: Mental Status Examination: General: No acute distress Alertness: Alert Orientation: Oriented to person, place and time Eye contact: Good Mental attitude: Positive Historian: Good Constitutional: Pleasant and cooperative Speech Rate: Normal Speech Tone: Normal Speech Articulation: Normal Speech Spontaneity: Normal Bradyphrenia: None Loose Associations: None Thought Processes: Normal Tangential: No Circumstantial: No Abstraction: Normal Computation: Normal Suicidal thoughts: None Homicidal thoughts: None Hallucinations (Auditory, visual, gustatory): None Delusions: None EPS: None AIMS: 0 Violent ideations: None Paranoid thoughts: None Guarded: No Obsessions: None Phobias: None Judgement: Good Insight: Good Fund of Knowledge: Intact Mood: Euthymic Affect: Reactive Physical Examination: Note that no supplement oxygen is in use No acute distress; consistent with age; the patient appears slightly tired IMPRESSION: I: Deferred II: Deferred III: Restless legs syndrome (rls) (primary encounter diagnosis) Chronic use of opiate for therapeutic purpose José Miguel on cpap Iron deficiency anemia, unspecified iron deficiency anemia type Prediabetes Primary hypertension Hypogonadism in male Idiopathic small fiber peripheral neuropathy Hypertriglyceridemia Benign prostatic hyperplasia, unspecified whether lower urinary tract symptoms present Restless legs syndrome (rls) (primary encounter diagnosis) PLAN: Thus, after reviewing the [facility] Electronic Medical Record and interviewing the patient either in person or virtually it is my professional opinion that the patient should continue the using the Positive Airway Pressure (PAP) device nightly at the current settings and should also continue the current medications at the current doses and times. Once he loses about 20 pounds he will notify us and we will order a SPLIT NIGHT Study in order to be prepped for possible Inspire. The risks, benefits and common adverse events were reviewed with the patient and they appear to understand. The patient may review the pharmacy drug information sheet and is welcome to review the entire product information sheet from the strategic marketing specialist. I would be happy to review any questions they have after review of that detailed FDA approved medical information. I, our STATISTICAL PROGRAMMER ANALYST and administrative staff will all continue to monitor the [place] Automated Rx Reporting System (OARRS) on a regular basis and document that it has been reviewed and that the patient is not obtaining controlled substances from another provider. Random drug screens may be given depending on the case. I would like for you to follow up with one our Sleep Medicine Advance Practice Providers in approximately 90 days. It was a pleasure visiting with you today in the [facility]. It is certainly a privilege to assist you in your medical care. Remember to please follow up with your other medical specialists and your primary care provider on a regular basis. If you have any further questions regarding the diagnosis or recommendations today, please do not hesitate to send us a [employer] message or call our collaborating Section Laborer nurse Boggs RN, BSN at [phone] Extension #[phone]. I spent a total time of over 30 minutes on the date of the service on this case. This included preparing to see the patient by reviewing the medical record prior to examining the patient, interviewing the patient face to face in the clinic or virtually via audio and video secure [facility] technology, ordering appropriate medications/tests/procedures, completing clinical documentation of the visit, counseling and educating the patient/family/caregiver, communicating with other health care providers as well as general care coordination. Jaden Man DO, CBSM, ABSM Associate Cushion Maker, Sleep Medicine Fellowship Clinical Staff Physician, Sleep Medicine [facility] Department of Neurology Department of Psychiatry [address] Mail Code [address] [place] [id number] documented in this encounter [facility] 03-05-2023 Miscellaneous Notes Prescription sent to mail away pharmacy as requested. Genesis Spencer APRN.STOGY ROLLER Please send to mailaway pharmacy Merna Meraz Ma Generic meter, strips, and lancets order pended. Which pharmacy does this need to go to? documented in this encounter [facility] 03-05-2023 Miscellaneous Notes This request has been approved using information available on the patient's profile. CaseId:[id number];Status:Approved;Re view Type:Prior Auth;Coverage Start Date:02/03/2023;Coverage End Date:03/04/2024; Pt and pharmacy notified. Electronic PA requested. documented in this encounter [facility] 03-04-2023 History of Present illness Narrative This consult is seen at the kind request of nurse practitioner Karli Correa of sleep medicine, and my final recommendations will be communicated to the requesting health care provider by way of shared electronic medical record. This note is formatted with the impression and plan first and the history and physical to follow. IMPRESSION 52-year-old male with severe obstructive sleep apnea unable to tolerate CPAP. Patient is interested in inspire hypoglossal nerve stimulator. RECOMMENDATION/PLAN Based on patient's exam today, he does not qualify for hypoglossal nerve stimulator due to his BMI being greater than 35. Once he is able to get his BMI down to 35, I recommend repeat a sleep study to determine the current severity of his sleep apnea. If he follows him within the criteria for inspire, we can proceed with drug-induced sleep endoscopy. Patient will let me know once his BMI is under 35 and I can order a sleep study. We can set up follow-up appointment after the sleep study. I did inform him that certain commercial insurance may require his BMI to be under 32. Chief Complaint Short of sleep apnea History of Present Illness Nancy Enamorado is a 52 year old male presents for evaluation obstructive sleep apnea. Patient has been using CPAP for the last few years and is having some difficulty tolerating it. His last sleep study was in August of 2020 which showed severe obstructive sleep apnea with AHI of 36.6. There was minimal central apnea. Patient's BMI today is 37.08. He is interested in inspire hypoglossal nerve stimulator. PAST MEDICAL HISTORY Diagnosis Date Achilles tendinosis of left lower extremity s/p repair BPH (benign prostatic hyperplasia) Diabetes mellitus type II (HCC) Erectile dysfunction Heel spur, left Hypertension Hypertriglyceridemia Hypogonadism in male Idiopathic neuropathy JOSÉ MIGUEL (obstructive sleep apnea) 08/2020 RLS (restless legs syndrome) Dr Man Thrombosed hemorrhoids 11/2021 Vitamin D deficiency PAST SURGICAL HISTORY Procedure Laterality Date APPENDECTOMY ARTHROSCOPY KNEE DIAGNOSTIC W/WO SYNOVIAL BX SPX Left Arthroscopy, knee CHOLECYSTECTOMY HX HERNIA REPAIR HX Bilateral inguinal hernia, congenital NEUROPLASTY &/TRANSPOS MEDIAN NRV CARPAL TUNNE Carpal tunnel decomp bilateral PAST SURGICAL HISTORY OF 07/30/2019 repair bone spur achilles left foot PAST SURGICAL HISTORY OF Left 08/21/2021 achilles tendon repair PAST SURGICAL HISTORY OF 12/05/2021 hemorrhoidectomy SKIN BIOPSY HX TONSILLECTOMY HX TONSILLECTOMY PRIMARY/SECONDARY <AGE 12 Tonsillectomy FAMILY HISTORY Problem Relation Age of Onset COPD Mother Cancer Mother lung Heart disease Father Cancer Father lung, liver, kidney, colon Depression Father Anxiety disorder Father other (cancer) Father Psychiatry Brother No Known Problems Brother Heart disease Maternal Grandmother Heart disease Maternal Grandfather Heart disease Paternal Grandmother Heart disease Paternal Grandfather Multiple Sclerosis Daughter other (apraxia) Son CURRENT OUTPATIENT MEDICATIONS Current Outpatient Medications on File Prior to Visit Medication Sig methadone (DOLOPHINE) 5 mg tablet Take 1.5 tablets by mouth every evening for 30 days. Do not start before February 26, 2023. sertraline (ZOLOFT) 50 mg tablet Take 1 tablet by mouth once daily. testosterone cypionate (DEPO-TESTOSTERONE) 200 mg/mL injection Inject 1 mL intramuscularly every 2 weeks for 90 days. lisinopril-hydroCHLOROthiazide (ZESTORETIC) 20-12.5 mg per tablet Take 2 tablets by mouth once daily. CPAP/BIPAP/OTHER Continue Auto CPAP with current settings of 8-15 cm H2O. Lifetime supplies for Auto CPAP, including patient preferred mask, head gear, heated tubing, humidity, filters, chin strap. Dx: Obstructive Sleep Apnea G47.33 DME: [employer] atorvastatin (LIPITOR) 20 mg tablet Take 1 tablet by mouth daily at bedtime. For cholesterol. CPAP Provide lifetime supplies for AutoPAP 8-15 cm H20 including nasal pillow mask, heated tubing, humidity, filters and fax download report to assess residual AHI to [phone]. Dx: G47.33 Tadalafil (CIALIS) 5 mg tablet Take 1 tablet by mouth once daily. (Patient not taking: Reported on 03/04/2023) Syringe with Needle, Disp, 3 mL 25 x 1 1/2 1 Each every 2 weeks. (Patient not taking: Reported on 03/04/2023) No current facility-administered medications on file prior to visit. ALLERGIES ALLERGIES Allergen Reactions Metformin Intolerance Muscle aches, increase stool The remainder of the patient's history and review of systems is on the outpatient questionaire which was reviewed by me and placed in the outpatient chart. PHYSICAL EXAMINATION Appearance: General examination of the patient's external face, head and neck reveals no abnormalities. The patient is not retrognathic The patient's voice is strong and clear and they communicate easily. Ears: Exam of the ears revealed normal appearing external auditory canals, tympanic membranes, and middle ears. No signs of infection or fluid were seen. Nose: External nasal exam was normal. Throat: There were no lesions to visualization or palpation of the lips, cheeks, gums, floor of mouth, tongue, hard and soft palate, tonsillar pillars or posterior pharyngeal wall. The patient is a Prater Tongue Position 2 and has grade 1 tonsils. Neck: Palpation of the neck revealed no adenopathy, salivary gland masses or asymmetry, or thyroid masses or enlargement. Michelle Riley MD documented in this encounter [facility] 03-04-2023 Instructions Genesis Spencer APRN.STOGY ROLLER - 03/04/2023 8:20 AM EDT Check blood sugars twice a day and update me in one month with readings To schedule a diabetic eye exam at the [facility], please call: [phone] Online resources to learn more [email or web address]/diabetes/ complications/eye-complications [email or web address].org/healthy-eyes/e fi-hot-kucccw-conditions/diabetic- retinopathy?sso=y [email or web address] References 1. National Diabetes Statistics Report 2020: Estimates of Diabetes and Its Mobile in the [facility]. Center for Disease Control and Prevention; 2020. Available at: https://www.cdc.gov/diabetes/pdfs/ data/statistics/national-diabetes- statistics-report.pdf 2. Taylor Hayden, Veronica Celis, Shravan Snyder, Jamila Dean, Keyanna Ascencio, Chucky Mart, Wilner Maldonado, Pepe Weber; Diabetic Retinopathy: A Position Statement by the [place] Diabetes Association. Diabetes Care 14 August 2016; 40 (3): 412-418 documented in this encounter [facility] 03-04-2023 History of Present illness Narrative 03/04/2023 Patient presents with: Physical: Wants to discuss joints and body aching, noticed after started the metformin and is taking 8 ibuprofen a day. And lump on right shoulder. SUBJECTIVE: This is a 52 year old that is here today for Above Complaints. DIABETES MELLITUS: Since our last visit he denies chest pain or dyspnea , numbness, tingling or pain in extremities, new or unusual visual symptoms, low sugar/hypoglycemic reactions, weight loss/gain, and lightheadedness/dizziness. Follows a diabetic diet most of the time, probably noncomplaint although I cannot elucidate specific history. Stopped metformin two days ago He reports checking his glucose on a infrequent to not at all basis schedule with sugars in the fasting 120 range. Patient's last HgA1C was Hemoglobin A1C (%) Date Value 03/03/2023 7.4 11/04/2022 6.5 07/06/2021 6.0 08/11/2020 5.8 ) Last Ophthalmology exam was has not completed Started with joint pain after starting metformin.Noticed increase in bowel movements Stopped two days ago but seems to have helped some with joint pain. Denies joint swelling Reports rectal bleeding at least once a week. Denies constipation. Bleeding can be in the toilet bowel and when he wipes.Has noted an increase in the amount of stool, though maybe related to metformin. Denies weight loss, abdominal pain, nausea, vomiting, or melana Lump to right shoulder- has been there for 6 months but it is getting bigger. Doesn't really hurt, feels fatigued. Denies drainage from area or surrounding erythema Using CPAP as prescribed. Following up today with otolaryngoly for possible implant. Testoterone every 2 weeks-last shot two weeks ago HTN: Patient is compliant with meds Yes Monitors bp at home: No. Denies side effects: Yes. Chest pain: No. Dyspnea: No. Edema: No. Palpitations: No. Syncope: No. Headache: No. Dizziness: No. HYPERLIPIDEMIA: Patient is taking medications: Yes. Patient is watching diet: No. Patient denies myalgias: Yes. Patient denies gi upset: Yes Taking Zoloft as prescribed without side effects. Feels it has helped with symptoms PAST MEDICAL HISTORY Diagnosis Date Achilles tendinosis of left lower extremity s/p repair BPH (benign prostatic hyperplasia) Diabetes mellitus type II (HCC) Erectile dysfunction Heel spur, left Hypertension Hypertriglyceridemia Hypogonadism in male Idiopathic neuropathy JOSÉ MIGUEL (obstructive sleep apnea) 08/2020 RLS (restless legs syndrome) Dr Man Thrombosed hemorrhoids 11/2021 Vitamin D deficiency ALLERGIES Patient has no known allergies. MEDICATIONS Current Outpatient Medications Medication Sig methadone (DOLOPHINE) 5 mg tablet Take 1.5 tablets by mouth every evening for 30 days. For refractory restless leg syndrome. Do not start before January 27, 2023. methadone (DOLOPHINE) 5 mg tablet Take 1.5 tablets by mouth every evening for 30 days. Do not start before February 26, 2023. sertraline (ZOLOFT) 50 mg tablet Take 1 tablet by mouth once daily. metFORMIN (GLUCOPHAGE) 500 mg tablet Take 1 tablet by mouth twice daily with meals. testosterone cypionate (DEPO-TESTOSTERONE) 200 mg/mL injection Inject 1 mL intramuscularly every 2 weeks for 90 days. lisinopril-hydroCHLOROthiazide (ZESTORETIC) 20-12.5 mg per tablet Take 2 tablets by mouth once daily. CPAP/BIPAP/OTHER Continue Auto CPAP with current settings of 8-15 cm H2O. Lifetime supplies for Auto CPAP, including patient preferred mask, head gear, heated tubing, humidity, filters, chin strap. Dx: Obstructive Sleep Apnea G47.33 DME: [employer] Tadalafil (CIALIS) 5 mg tablet Take 1 tablet by mouth once daily. atorvastatin (LIPITOR) 20 mg tablet Take 1 tablet by mouth daily at bedtime. For cholesterol. CPAP Provide lifetime supplies for AutoPAP 8-15 cm H20 including nasal pillow mask, heated tubing, humidity, filters and fax download report to assess residual AHI to [phone]. Dx: G47.33 Syringe with Needle, Disp, 3 mL 25 x 1 1/2 1 Each every 2 weeks. No current facility-administered medications for this visit. Medications and allergies reviewed by this provider. SOCIAL HISTORY Social History Tobacco Use Smoking status: Never Smokeless tobacco: Never Vaping Use Vaping Use: Never used Substance Use Topics Alcohol use: Yes Alcohol/week: 2.0 standard drinks of alcohol Types: 2 Cans of beer per week Drug use: Never REVIEW OF SYSTEMS GENERAL: No weight loss, malaise or fevers HEENT: Negative for frequent or significant headaches, No changes in hearing or vision, no nose bleeds or other nasal problems NECK: Negative for lumps, goiter, pain and significant neck swelling RESPIRATORY: Negative for cough, hemoptysis, wheezing, COPD, dyspnea or shortness of breath CARDIOVASCULAR: Negative for chest pain, leg swelling, hypertension, CHF or palpitations GI: No nausea, vomiting, or diarrhea MUSCULOSKELETAL: See HPI SKIN: See HPI PSYCH: Negative for sleep disturbance, mood disorder and recent psychosocial stressors HEMATOLOGY/LYMPHOLOGY: Negative for prolonged bleeding, bruising easily or swollen nodes ENDOCRINE: Negative for cold or heat intolerance, polyuria, polydipsia and goiter NEURO: No history of headaches, syncope, paralysis, seizures or tremors All other reviewed and negative other than HPI. OBJECTIVE: BP 128/84 Pulse 71 Resp 18 Ht 182.6 cm (5' 11.89) Wt 122.4 kg (269 lb 12.8 oz) SpO2 95% BMI 36.70 kg/m . Vital signs reviewed by this provider. APPEARANCE Well appearing, alert, in no acute distress, well-hydrated, well nourished. EYES PERRLA, conjunctiva and sclera normal. EARS External ears normal, canals clear NECK Supple, no adenopathy; thyroid symmetric, normal size, no bruits HEART RRR with normal S1 and S2, no murmurs, no gallops, no JVD appreciated LUNG clear to auscultation ABDOMEN bowel sounds normoactive, no bruits, soft, non-tender, non-distended, no rebound tenderness or guarding EXTREMITIES Extremities normal, No deformities, No skin discoloration, and No edema SKIN Large soft mass to right upper back, without pain, erythema or surrounding erythema, otherwise, skin color, texture, turgor normal, no suspicious rashes or lesions Component Latest Ref Rng & Units 03/03/2023 WBC 3.70 - 11.00 k/uL 7.50 RBC 4.20 - 6.00 m/uL 4.87 Hemoglobin 13.0 - 17.0 g/dL 15.1 Hematocrit 39.0 - 51.0 % 42.6 MCV 80.0 - 100.0 fL 87.5 MCH 26.0 - 34.0 pg 31.0 MCHC 30.5 - 36.0 g/dL 35.4 RDW-CV 11.5 - 15.0 % 12.9 Platelet Count 150 - 400 k/uL 244 MPV 9.0 - 12.7 fL 9.6 Neut% % 58.5 Abs Neut (ANC) 1.45 - 7.50 k/uL 4.38 Lymph% % 29.7 Abs Lymph 1.00 - 4.00 k/uL 2.23 Moca% % 7.3 Abs Moca <0.87 k/uL 0.55 Eosin% % 3.5 Abs Eosin <0.46 k/uL 0.26 Baso% % 0.5 Abs Baso <0.11 k/uL 0.04 Immature Gran % % 0.5 IMMATURE GRANS (ABS) <0.10 k/uL 0.04 NRBC /100 WBC 0.0 Absolute nRBC <0.01 k/uL <0.01 DTYPE Auto Protein, Total 6.3 - 8.0 g/dL 7.1 Albumin 3.9 - 4.9 g/dL 4.3 Calcium 8.5 - 10.2 mg/dL 9.2 Bilirubin, Total 0.2 - 1.3 mg/dL 0.7 Alkaline Phosphatase 38 - 113 U/L 80 AST 14 - 40 U/L 27 ALT 10 - 54 U/L 36 Glucose 74 - 99 mg/dL 180 (H) BUN 9 - 24 mg/dL 11 Creatinine 0.73 - 1.22 mg/dL 0.90 Sodium 136 - 144 mmol/L 137 Potassium 3.7 - 5.1 mmol/L 3.9 Chloride 97 - 105 mmol/L 100 CO2 22 - 30 mmol/L 24 Anion Gap 9 - 18 mmol/L 13 eGFR >=60 mL/min/1.73m 102 Hemoglobin A1C 4.3 - 5.6 % 7.4 (H) Estimated Average Glucose mg/dL 166 Component Latest Ref Rng & Units 03/03/2023 Cholesterol, Total <200 mg/dL 126 Triglyceride <150 mg/dL 227 (H) HDL Cholesterol >39 mg/dL 30 (L) Non HDL Cholesterol <130 mg/dL 96 Fasting Time hrs 13 VLDL Cholesterol <30 mg/dL 45 (H) TC:HDL Ratio <5.10 4.20 LDL Cholesterol <100 mg/dL 51 LDL:HDL Ratio <2.54 1.70 Hepatitis B Vaccine(1 of 3 - 3-dose series) Never done Urine Albumin:Creatinine Ratio Never done Dilated Retinal Exam Never done BP Controlled (<130/80) Never done Colorectal Cancer Screening due on 02/17/2021 Covid-19 Vaccine(3 - Moderna series) due on 06/16/2021 Diabetic Foot Exam due on 08/31/2023 HbA1C due on 09/01/2023 LDL Cholesterol due on 03/03/2024 Annual PCP Team Chronic Disease Visit due on 03/04/2024 DTaP,Tdap,Td Vaccine(2 - Td or Tdap) due on 03/10/2030 Influenza Vaccine Completed Depression Assessment Completed Hepatitis C Screening Completed HIV Screening Completed Shingrix Vaccine Completed Pneumococcal Vaccine Completed ASSESSMENT/PLAN: 1. Annual physical exam - ICD9: V70.0, ICD10: Z00.00 (primary diagnosis) - Counseled on healthy diet and regular exercise - Discussed need for and benefit of weight loss. BMI 36.70 kg/(m^2) - Depression screening tool completed and reviewed with patient. Based on score and interview, patient is already diagnosed with depression and recommended continuing current plan of care. - Follow up for annual exam in one year 2. Rectal bleeding - ICD9: 569.3, ICD10: K62.5 - CONSULT TO GENERAL SURGERY 3. Lump of skin of back - ICD9: 782.2, ICD10: R22.2 - possible lipoma - US HEAD/NECK SOFT TISSUE OTHER 4. Encounter for immunization - ICD9: V03.89, ICD10: Z23 - INFLUENZA VACCINE, AGE 6 MO - 64 YR, QUADRIVALENT (AFLURIA, FLULAVAL, FLUZONE) 5. Hypogonadism in male - ICD9: 257.2, ICD10: E29.1 - testosterone pending - continue injections every two weeks 6. Type 2 diabetes mellitus without complication, without long-term current use of insulin (HCC) - ICD9: 250.00, ICD10: E11.9 - Uncontrolled - Start ozempic, stop metformin - Statin prescribed - atorvastatin - Blood glucose monitoring on a twice daily schedule - Counseled on healthy diet and regular exercise - Discussed need for and benefit of weight loss. BMI 36.70 kg/(m^2) - Discussed diabetic education issues of diabetes complications and monitoring required, hypoglycemic/hyperglycemic symptoms, and medication-specific side effects and monitoring - Follow up in 3 months, sooner should any other issues arise. - SEMAGLUTIDE 0.25 MG OR 0.5 MG (2 MG/3 ML) SUBCUTANEOUS PEN INJECTOR - update me with blood sugar readings in one month, sooner if experiencing lows 7. JOSÉ MIGUEL on CPAP - ICD9: 327.23, V46.8, ICD10: G47.33 - continue CPAP - follow-up with otolaryngoly today 8. Essential hypertension - ICD9: 401.9, ICD10: I10 - Controlled - Continue current medications - Recommend home blood pressure monitoring, to bring results to next visit - Encouraged sodium restriction, DASH or Mediterranean diet - Recommend regular aerobic exercise - Discussed need for and benefit of weight loss. BMI 36.70 kg/(m^2) - Follow up in 3 months for hypertension visit 9. Arthralgia, unspecified joint - ICD9: 719.40, ICD10: M25.50 - stay off metformin - may stop cholesterol medication to see if this helps, if it does let me know and we can try a new one - follow-up if symptoms fail to improve 10. Hypertriglyceridemia - ICD9: 272.1, ICD10: E78.1 - Controlled - Continue current medications - Counseled on healthy diet and regular exercise - Discussed need for and benefit of weight loss. BMI 36.70 kg/(m^2) - Follow up in 3 months, sooner should any other issues arise. 11. Major depressive disorder, remission status unspecified, unspecified whether recurrent - ICD9: 296.20, ICD10: F32.9 - stable on current regime - DEPRESSION SCREENING/ASSESSMENT - follow-up as needed Genesis Spencer APRN.CNP Prescription instructions reviewed with patient as applicable. Patient advised if symptoms do not improve or if symptoms worsen sooner, to contact their primary care physician. Potential red flag symptoms discussed with the patient. Reviewed appropriate action plan to take if red flag symptoms occur. Patient agreeable to treatment plan. documented in this encounter [facility] 01-02-2023 Instructions Karli Correa APRN.CNP - 01/02/2023 3:55 PM EDT PLAN: JOSÉ MIGUEL: - Continue Auto CPAP at increased settings of 11-15 cmH2O for the time being (settings changed remotely in AirView system) - We will see if increased settings makes CPAP more comfortable during the night and prevents you from feeling a need to remove the mask - If you do not tolerate these changes, please let me know and we can readjust. - Remember to clean your mask and equipment regularly, as directed. - Avoid use of ozone display manager, SoClean devices, or UV cleaning devices - Avoid using alcohol or alcohol-containing products on your mask, as this may compromise the integrity of the mask materials and contribute to leak issues - Use only baby shampoo and water, mild dish soap and water, or CPAP-specific wipes to clean your supplies. - You should be eligible for new supplies approximately every 3-6 months, depending on your insurance coverage. Contact your Durable Medical Equipment (DME) company for new supplies as needed. - DME: [facility] - Given reported intolerance to CPAP and difficulties with use, we will refer to ENT for consideration of Inspire - Call to schedule with Dr. Riley or Dr. Thompson - As discussed, mild weight loss may be needed to qualify RLS: - Continue methadone 7.5mg nightly for RLS symptoms - In accordance with department regulations, in order for controlled substances to be prescribed, you must be evaluated by a Sleep physician at least once yearly, and must attend at least one in-person visit per year. - Your medications require that you follow-up every 3 months for refills. - Other requirements for use of controlled substances may include urine tox screenings and EKGs/cardiac evaluations. - Utox completed 09/2022 - Scheduled 03/07/[address] Man - Keep scheduled follow-up visit with Dr. Man Hypoglossal Nerve Stimulation (Inspire) Therapy [facility] for JOSÉ MIGUEL Hypoglossal Nerve Stimulation (HGNS) For certain patients who cannot tolerate other therapy for obstructive sleep apnea, hypoglossal nerve stimulation can be a consideration. This therapy was FDA approved in 2014 for treatment in certain patients. Criteria Include (but are not limited to): 1. Moderate to severe obstructive sleep apnea (AHI/KIMBERLEY 15-65) 2. BMI (body mass index) of 32kg/m2 or less (35kg/m2 for Medicare) 3. Age 18 and above 4. An inability to successfully use CPAP -usage < 4hrs/night, 70% of nights The system works by stimulating the tongue muscles during sleep in order to keep your airway open. Surgery includes 2 different surgical sites. An incision under your jaw is where we place the stimulation lead to the nerve that works the tongue muscles. The upper chest is where we place the pulse generator and sensor to track your breathing. Surgery is usually performed as an outpatient under general anesthesia. Pathway to Placement If, after discussion with your doctor, you are a candidate for Inspire therapy, there are a few steps that must be undertaken: 1. Sleep endoscopy. The original studies included this brief procedure to decide who would benefit from implantation. This procedure requires deep sedation where you are asleep but breathing on your own. While asleep, a small flexible scope is passed into your nose and used to look at the pattern of collapse of your throat. Certain patterns are associated with successful implantation and one is not. If you are a potential successful candidate then we would go to the next step. 2. Insurance approval. Because this is a newer therapy many insurances do not automatically cover this therapy. We submit the surgical request to your insurance company and wait for their decision. We are successful in obtaining coverage in many, but not all, cases. 3. Once we obtain insurance approval, we can schedule surgery. Surgery and After Surgery is scheduled as an outpatient procedure under general anesthesia. The actual surgery takes approximately 2 hours. You will go home the same day in most cases. You should avoid heavy lifting for 2 weeks after surgery and should not lift your arm above your shoulder for 10 days. After surgery: 1. We will schedule a surgical follow up one week after surgery to check the surgical sites. 2. Most patients can return to work in 7-10 days. Light activities, including light exercise can be resumed at 10 days. If you have a job or activity that involves heavy physical activity or work in a dirty environment, you may not be able return to full duty for 3-4 weeks. Please discuss this with your surgeon. Activation, Acclimation, and Beyond 1. One month after surgery you will have an appointment with one of the sleep center providers who program the device for you to start using on a nightly basis. - [facility] sleep center providers have locations at [place] (Mondays), [facility] (Tuesdays), [place] (Friday mornings). - All sleep center provider appointments will be arranged through the [facility] (Inspire) nurse coordinator ([phone]). 2. You will have follow ups every 6-8 weeks in the office with the sleep provider until you are comfortable with the device, using it regularly and stimulation appears to be effective in treating your JOSÉ MIGUEL. 3. An in lab overnight sleep study will be performed to ensure that the stimulation level is optimal. 4. You will have follow ups in the office with the sleep provider every 3-6 months to ensure that the device is still working properly. 5. There may be other sleep studies needed on an as needed basis to check that you are adequately treated 6. Some patients need additional adjustments to the device if an ideal setting cannot be determined on a sleep study, which requires in office appointments. 7. Please remember that this is a battery powered device which lasts about 10 years. A brief surgery at that time will be needed to replace the pulse generator in the upper chest for another 10 years of therapy. 8. The newest Inspire device is compatible with 1.5 Rita MRI for the entire body. 9. You will need to carry a card that identifies you as having an implanted director of medical staff services when going through security scanners. [employer] has more information on their website or on a mobile phone bing. Connection information is below. Desktop: [email or web address] Mobile: Text the keyword INSPIRESLEEP to [phone] and follow the directions to save to phone. Contacting the Sleep Disorders Center: - Appointments can be scheduled through the central scheduling system for the [facility] at [phone]. - Call the Sleep Disorders Center at [phone] for questions. - May use [employer] Doc through [employer] for questions. - [facility] website: [email or web address] documented in this encounter [facility] 01-02-2023 History of Present illness Narrative Images from the original note were not included. [facility] Follow up/ Established patient visit Visit performed virtually, with the patient's permission. I have communicated my name and active licensure. The patient's identity and physical location were verified at the time of this visit. Either the patient or their legal customer response representative has been informed of the risks and benefits of -- and alternatives to -- treatment through a remote evaluation and consents to proceed with the evaluation remotely. 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 A Home Sleep Test (HST) performed on 09/02/2020 revealed severe JOSÉ MIGUEL (AHI of 36.6) that was associated with a minimum oxygen saturation of 71%; (3% hypopnea scoring; BMI 36.2). A PAP titration study completed on 09/29/2020 showed that a setting of 15 cmH2O normalized the AHI and maintained O2 saturation above 94 %; (3% hypopnea scoring; BMI 36.4). Patient reports compliance with PAP therapy and perceived benefit of treatment. Per download from 08/31/2022 - 09/29/2022, patient uses PAP therapy an average of 7 hours, and PAP use is >/= 4 hours on 93% of nights; Current setting of 8-15 cmH2O is controlling JOSÉ MIGUEL well (residual AHI 2.9). He denies mask or pressure intolerance. He has a longstanding h/o RLS, and has been treated in the past with gabapentin, Lyrica, and dopamine agonists without relief. He is now taking methadone, which is controlling he RLS well. His dose was increased from methadone 5mg QPM to 7.5mg QPM, however he has more recently been using only 5mg every evening most nights, and feels this is adequately controlling his RLS. He would like to reduce his dose of methadone back to 5mg every evening. He denies SE/ADR with current treatment. He has no h/o iron deficiency. He has vitamin D deficiency and was started on Rx vitamin D x 12 weeks by his PCP; he is still completing this course. UDS collected today. He is compliant with appointments and requirements for controlled substance prescribing. PLAN: JOSÉ MIGUEL: - Continue Auto CPAP at current settings of 8-15 cmH2O. - Sleep apnea is presently well controlled! Keep up the great work! - Remember to clean your mask and equipment regularly, as directed. - Avoid use of ozone display manager, SoClean devices, or UV cleaning devices - Avoid using alcohol or alcohol-containing products on your mask, as this may compromise the integrity of the mask materials and contribute to leak issues - Use only baby shampoo and water, mild dish soap and water, or CPAP-specific wipes to clean your supplies. - You should be eligible for new supplies approximately every 3-6 months, depending on your insurance coverage. Contact your Durable Medical Equipment (DME) company for new supplies as needed. - Order will be sent to [employer] for supplies: [employer] [facility] [place] RLS: - Will reduce methadone back to 5mg every evening for management of RLS - Will only send 1 month supply of methadone, due to desire to change to [facility] pharmacy next month - Contact us for refills once [facility] is open - In accordance with department regulations, in order for controlled substances to be prescribed, you must be evaluated by a Sleep physician at least once yearly, and must attend at least one in-person visit per year. - Your medications require that you follow-up every 3 months for refills. - Other requirements for use of controlled substances may include urine tox screenings and EKGs/cardiac evaluations. - Utox ordered and completed in office today - Schedule 3 month follow-up visit with [facility] [facility]. This visit may be scheduled for in-office or virtual. - Schedule appt for Feb [address] Donovan Correa APRN.MARTA I spent a total of 30 minutes on the date of the service which included preparing to see the patient, [id number] patient care, completing clinical documentation, obtaining and/or reviewing separately obtained history, performing a medically appropriate examination, counseling and educating the patient/family/caregiver, and ordering medications, tests, or procedures. ADDENDUM: RLS uncontrolled on methadone 5mg nightly and keeping patient awake. Will increase back to methadone 7.5 mg nightly as per pt request. Karli Correa APRN.CNP 11/25/22 5:24 PM Here for follow up for JOSÉ MIGUEL, RLS on methadone Interval history : He has resumed methadone 7.5mg nightly and is tolerating this dose well. His RLS is well controlled presently and he denies SE/ADR. CPAP has been a struggle. He reports he is constantly readjusting his mask during the night. He also struggles with the hose needing to be moved around at night due to tugging. He has tried hanging the hose and using hose supports without relief of tugging. He has some mild claustrophobia with the mask, and sometimes feels he breathes better without it during the night. He feels PAP has been cumbersome. The mask vent blows on during the night and is bothersome to her as well. SLEEP APNEA A Home Sleep Test (HST) performed on 09/02/2020 revealed severe JOSÉ MIGUEL (AHI of 36.6) that was associated with a minimum oxygen saturation of 71%; (3% hypopnea scoring; BMI 36.2). A PAP titration study completed on 09/29/2020 showed that a setting of 15 cmH2O normalized the AHI and maintained O2 saturation above 94 %; (3% hypopnea scoring; BMI 36.4). Sleep apnea type : JOSÉ MIGUEL, Most Recent Apnea-Hypopnea Index (AHI): 36.6 Treatment : PAP therapy DME: [facility] PAP History: Uses AutoPAP for 7 hours per night, 7 nights per week. Current PAP settin-15 cm H2O. Difficulties with AutoPAP: None Reviewed objective PAP compliance data: Yes Mask type: nasal mask Mask issues: mild claustrophobia during the night ; hose tugging on mask Uses chin strap: No Uses humidity: Distilled water There is a perceived benefit by the patient: Yes Observers report abolition of snoring with AutoPAP use. ------- RLS: Treatment: Methadone 7.5 mg (1.5 x 5mg tab) - typically takes around 7:00 pm Status: Improved He tried decreasing dose to 5mg nightly due to good RLS control, but developed recurrence of RLS sx and dose was resumed at 7.5mg nightly. Symptom free all day on current tx. -Medication: Methadone 7.5mg (1.5 x 5mg tab) every evening -Timin PM -Side effects: Denies -Benefit: Yes -Last filled: 12/28/2022 (#45 for 30 day supply) Prior treatment: -Lyrica -Gabapentin -Pramipexole -[facility] PDMP website checked and validated. All prescriptions have been APPROPRIATELY filled. No suspicious activity was identified. 01/02/2023 by Karli Correa APRN.STOGY ROLLER Urine tox: Latest Reference Range & Units 10/26/22 11:30 Amphetamines Negative Negative Barbiturates Negative Negative Benzodiazepines Urine Negative Negative Cocaine Urine Negative Negative Cannabinoids, Urine Negative Negative Ethanol, Urine <11 mg/dL <11 Opiates Negative Negative Phencyclidine Negative Negative Oxycodone, Urine Negative Negative State of Residence: [place] Pharmacy: [facility] Contributing Factors: - Untreated JOSÉ MIGUEL -- No - Antidepressants -- Zoloft 50mg daily Has not taken iron in last 5 years. Ferritin Date Value Ref Range Status 07/06/2021 308.0 30.3 - 565.7 ng/mL Final 01/02/2021 378.0 30.3 - 565.7 ng/mL Final 08/02/2019 280.0 30.3 - 565.7 ng/mL Final Transferrin Saturation Date Value Ref Range Status 07/06/2021 37 15 - 57 % Final 01/02/2021 44 15 - 57 % Final 08/02/2019 23 15 - 57 % Final Iron Date Value Ref Range Status 07/06/2021 91 41 - 186 ug/dL Final 01/02/2021 112 41 - 186 ug/dL Final 08/02/2019 74 41 - 186 ug/dL Final TIBC Date Value Ref Range Status 07/06/2021 249 232 - 386 ug/dL Final 01/02/2021 255 232 - 386 ug/dL Final 08/02/2019 316 232 - 386 ug/dL Final Hemoglobin Date Value Ref Range Status 07/30/2022 15.4 13.0 - 17.0 g/dL Final 06/15/2022 15.3 13.0 - 17.0 g/dL Final Vitamin D 25 Hydroxy Date Value Ref Range Status 10/12/2022 56.4 31.0 - 80.0 ng/mL Final Comment: Classification of 25 OH Vitamin D status: Deficiency/Insufficiency: < or = 30 ng/ml. Sufficiency/Optimal Levels: 31-80 ng/mL Toxicity: > 100 ng/mL. Test performed by chemiluminescent immunoassay. 07/30/2022 19.1 (L) 31.0 - 80.0 ng/mL Final Comment: Classification of 25 OH Vitamin D status: Deficiency/Insufficiency: < or = 30 ng/ml. Sufficiency/Optimal Levels: 31-80 ng/mL Toxicity: > 100 ng/mL. Test performed by chemiluminescent immunoassay. 08/13/2021 12.4 (L) 31.0 - 80.0 ng/mL Final Comment: Classification of 25 OH Vitamin D status: Deficiency/Insufficiency: < or = 30 ng/ml. Sufficiency/Optimal Levels: 31-80 ng/mL Toxicity: > 100 ng/mL. Test performed by chemiluminescent immunoassay. SLEEP HYGIENE QUESTIONS: Work has been changing a lot, and his schedule has been shifting. Bedtime : if not working nights, 10-11 PM ; if working nights, ~ 2-3 AM Wake up Time : it not working nights, 6-7 AM ; when working nights, 10 AM - 12 PM Time it takes to fall sleep : no issues Number of times patient wakes up per night : once nightly to urinate; a few times to reposition mask or hose; no trouble falling back asleep Estimated total sleep time ( in a 24 hour period of time) : 6-8 hours Naps : occasionally on weekends; rare 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 Sleep Questions 12/26/2022 Reason for visit: Sleep apnea, Restless Legs Syndrome Average hours slept in 24 hours: - Average hours of CPAP per night: 6.5 Percent of nights CPAP used at least 4 hours: 100 Accidents or near accidents due to drowsy drivin Sullivan Sleepiness Scale 07/29/2022 09/30/2022 12/26/2022 Score 2 (No daytime sleepiness) 4 (No daytime sleepiness) 4 (No daytime sleepiness) TRIHEALTHIS CAT Sleep Disturbance 07/29/2022 09/30/2022 12/26/2022 PROMIS Sleep Disturbance T-Score 63 (moderate) 38 (within normal limits) 46 (within normal limits) PROMIS Sleep Disturbance Percentile 10 % 88 % 66 % Insomnia Severity Index 02/26/2020 12/09/2021 07/29/2022 Score 26 19 14 Restless Leg Syndrome 07/29/2022 09/30/2022 12/26/2022 Score 24 23 18 PHQ-9 07/30/2022 09/30/2022 12/26/2022 Score 16 3 7 PROMIS Global Health - (T-Scores - the mean of general population = 50. Five points is a clinically meaningful difference.) 06/13/2022 09/30/2022 12/26/2022 Physical T-Score 54.1 54.1 47.7 Mental T-Score 33.8 53.3 48.3 PMH, PSH, SH: Reviewed SLEEP RELATED ROS Review of Systems Constitutional: Positive for fatigue (occasional). HENT: Positive for congestion (intermittent ; has deviated septum). Cardiovascular: Negative for chest pain and palpitations. Gastrointestinal: Negative for constipation. Genitourinary: Positive for nocturia (once nightly). Musculoskeletal: Positive for arthralgias. Negative for uncomfortable leg sensations. Neurological: Negative for dizziness. ALLERGIES No Known Allergies CURRENT MEDICATIONS: methadone (DOLOPHINE) 5 mg tablet Take 1.5 tablets by mouth every evening for 30 days. For refractory restless leg syndrome. sertraline (ZOLOFT) 50 mg tablet Take 1 tablet by mouth once daily. metFORMIN (GLUCOPHAGE) 500 mg tablet Take 1 tablet by mouth twice daily with meals. testosterone cypionate (DEPO-TESTOSTERONE) 200 mg/mL injection Inject 1 mL intramuscularly every 2 weeks for 90 days. methadone (DOLOPHINE) 5 mg tablet Take 1 tablet by mouth every evening for 30 days. For refractory restless leg syndrome. Do not start before November 09, 2022. lisinopril-hydroCHLOROthiazide (ZESTORETIC) 20-12.5 mg per tablet Take 2 tablets by mouth once daily. CPAP/BIPAP/OTHER Continue Auto CPAP with current settings of 8-15 cm H2O. Lifetime supplies for Auto CPAP, including patient preferred mask, head gear, heated tubing, humidity, filters, chin strap. Dx: Obstructive Sleep Apnea G47.33 DME: [facility] Tadalafil (CIALIS) 5 mg tablet Take 1 tablet by mouth once daily. white petrolatum-mineral Oil (ARTIFICIAL TEARS, CASS/MIN,) 83-15 % oint Use 1 application in the left eye daily at bedtime. cholecalciferol, Vitamin D3, (VITAMIN D3) 1,250 mcg (50,000 unit) cap capsule Take 1 capsule by mouth one time a week. atorvastatin (LIPITOR) 20 mg tablet Take 1 tablet by mouth daily at bedtime. For cholesterol. CPAP Provide lifetime supplies for AutoPAP 8-15 cm H20 including nasal pillow mask, heated tubing, humidity, filters and fax download report to assess residual AHI to [phone]. Dx: G47.33 CPAP Increase autopap pressure to 8-15 cm of water with humidification. Mask (per patient preference) optional chin strap (if indicated) , filters, tubing, humidifier and lifetime supplies. Syringe with Needle, Disp, 3 mL 25 x 1 1/2 1 Each every 2 weeks. Prior Hypersomnia/Narcolepsy Medications (20 years) Some values may be hidden. Unless noted otherwise, only the newest values recorded on each date are displayed. Hypersomnia/Narcolepsy Medications No data to display. Prior RLS Medications (last 20 years) Some values may be hidden. Unless noted otherwise, only the newest values recorded on each date are displayed. RLS Medications meperidine (PF) 12.5 mg injection (DEMEROL) Dose: 12.5 mg ONCE May Repeat 12.5 mg in 10 minutes X1 for Continued Shivering Starting date: 08/21/2021 Ending date: 08/21/2021 (Discontinued) methadone (DOLOPHINE) 5 mg tablet Dose: 2.5 mg DAILY IN THE LATE AFTERNOON For RLS-pain Starting date: 03/20/2021 Ending date: 03/26/2021 (Discontinued) methadone (DOLOPHINE) 5 mg tablet Dose: 5 mg DAILY IN THE LATE AFTERNOON For RLS-pain Starting date: 03/26/2021 Ending date: 04/18/2021 (Discontinued) methadone (DOLOPHINE) 5 mg tablet Dose: 5 mg DAILY IN THE LATE AFTERNOON For RLS-pain Starting date: 04/25/2021 Ending date: 05/16/2021 (Discontinued) methadone (DOLOPHINE) 5 mg tablet Dose: 5 mg DAILY IN THE LATE AFTERNOON For RLS-pain Starting date: 07/24/2021 Ending date: 07/06/2021 (Discontinued) methadone (DOLOPHINE) 5 mg tablet Dose: 5 mg DAILY IN THE LATE AFTERNOON For RLS-pain Starting date: 06/24/2021 Ending date: 07/06/2021 (Discontinued) methadone (DOLOPHINE) 5 mg tablet Dose: 5 mg DAILY IN THE LATE AFTERNOON For RLS-pain Starting date: 05/25/2021 Ending date: 07/06/2021 (Discontinued) methadone (DOLOPHINE) 5 mg tablet Dose: 1 tablet po q bedtime for treatment refractory restless legs syndrome Starting date: 12/13/2021 Ending date: 01/11/2022 (Discontinued) methadone (DOLOPHINE) 5 mg tablet Dose: 1 tablet po q bedtime for treatment refractory restless legs syndrome Do not start before January 13, 2022. Starting date: 01/13/2022 Ending date: 02/11/2022 (Discontinued) methadone (DOLOPHINE) 5 mg tablet Dose: 1 tablet po q bedtime for treatment refractory restless legs syndrome Starting date: 02/11/2022 Ending date: 03/14/2022 (Discontinued) methadone (DOLOPHINE) 5 mg tablet Dose: 1 tablet po q bedtime for treatment refractory restless legs syndrome Starting date: 03/14/2022 Ending date: 04/08/2022 (Discontinued) methadone (DOLOPHINE) 5 mg tablet Dose: 1 tablet po q bedtime for treatment refractory restless legs syndrome Do not start before April 13, 2022. Starting date: 04/13/2022 Ending date: 06/09/2022 (Discontinued) methadone (DOLOPHINE) 5 mg tablet Dose: 1 tablet at night for refractory RLS pain Do not start before May 13, 2022. Starting date: 05/13/2022 Ending date: 09/30/2022 (Discontinued) methadone (DOLOPHINE) 5 mg tablet Dose: 1 tablet po q bedtime for treatment refractory restless legs syndrome Starting date: 06/11/2022 Ending date: 06/20/2022 (Discontinued) methadone (DOLOPHINE) 5 mg tablet Dose: 1 tablet po q bedtime for treatment refractory restless legs syndrome Do not start before July 11, 2022. Starting date: 07/11/2022 Ending date: 08/02/2022 (Discontinued) methadone (DOLOPHINE) 5 mg tablet Dose: 7.5 mg EVERY EVENING 1.5 tablet po q bedtime for treatment refractory restless legs syndrome Starting date: 08/09/2022 Ending date: 09/30/2022 (Discontinued) methadone (DOLOPHINE) 5 mg tablet Dose: 7.5 mg EVERY EVENING For refractory restless leg syndrome. Starting date: 09/08/2022 Ending date: 09/30/2022 (Discontinued) methadone (DOLOPHINE) 5 mg tablet Dose: 7.5 mg EVERY EVENING for treatment refractory restless legs syndrome Starting date: 10/08/2022 Ending date: 09/30/2022 (Discontinued) methadone (DOLOPHINE) 5 mg tablet Dose: 5 mg EVERY EVENING For refractory restless leg syndrome. Starting date: 10/07/2022 Ending date: 11/04/2022 (Discontinued) methadone (DOLOPHINE) 5 mg tablet Dose: 5 mg EVERY EVENING For refractory restless leg syndrome. Starting date: 11/09/2022 Ending date: 12/09/2022 methadone (DOLOPHINE) 5 mg tablet Dose: 7.5 mg EVERY EVENING For refractory restless leg syndrome. Starting date: 11/25/2022 Ending date: 12/23/2022 (Discontinued) methadone (DOLOPHINE) 5 mg tablet Dose: 7.5 mg EVERY EVENING For refractory restless leg syndrome. Starting date: 12/24/2022 Ending date: 01/23/2023 methadone 5 mg/5 mL solution Dose: 4 mg EVERY EVENING For RLS-pain Starting date: 07/06/2021 Ending date: 07/31/2021 (Discontinued) methadone 5 mg/5 mL solution Dose: 4 mg EVERY EVENING For RLS-pain Starting date: 07/31/2021 Ending date: 09/03/2021 (Discontinued) methadone 5 mg/5 mL solution Dose: 4 mg EVERY EVENING For RLS-pain Starting date: 09/03/2021 Ending date: 09/26/2021 (Discontinued) methadone 5 mg/5 mL solution Dose: 4 mg EVERY EVENING For RLS-pain Starting date: 10/06/2021 Ending date: 10/05/2021 (Discontinued) methadone 5 mg/5 mL solution Dose: 4 mg EVERY EVENING For RLS-pain Starting date: 11/05/2021 Ending date: 12/13/2021 (Discontinued) methadone 5 mg/5 mL solution Dose: 4 mg EVERY EVENING For RLS-pain Starting date: 10/05/2021 Ending date: 12/13/2021 (Discontinued) oxyCODONE IR 5 mg tab(s) (ROXICODONE) Dose: 5 mg NEEDED Starting date: 08/21/2021 Ending date: 08/21/2021 (Discontinued) oxyCODONE IR (ROXICODONE) 5 mg immediate release tablet Dose: 5 mg EVERY 6 HOURS NEEDED for more severe postop pain after surgery. Starting date: 08/20/2021 Ending date: 08/27/2021 Pramipexole (MIRAPEX ER) 0.375 mg Tb24 Dose: 1.125 mg EVERY EVENING And decrease as recommended by physician Starting date: 12/26/2020 Ending date: 03/23/2021 (Discontinued) Pramipexole (MIRAPEX ER) 1.5 mg Tb24 Dose: 1.5 mg AT BEDTIME Starting date: Ending date: 08/02/2019 (Discontinued) Pramipexole (MIRAPEX ER) 1.5 mg Tb24 Dose: 1.5 mg EVERY EVENING Starting date: 12/26/2020 Ending date: 03/23/2021 (Discontinued) pramipexole (MIRAPEX) 0.5 mg tablet Dose: 0.5 mg 2 TIMES DAILY (Patient taking differently: 0.5 mg BID as of 09/21/2019 8:20 AM) Starting date: 08/19/2019 Ending date: 11/16/2019 (Discontinued) rOPINIRole (REQUIP) 0.5 mg tablet Dose: 0.5 mg AT BEDTIME Starting date: 08/02/2019 Ending date: 08/04/2019 (Discontinued) rOPINIRole (REQUIP) 1 mg tablet Dose: 1 mg AT BEDTIME Starting date: 08/04/2019 Ending date: 08/19/2019 (Discontinued) rotigotine (NEUPRO) 1 mg/24 hour patch Dose: 1 Patch DAILY Starting date: 11/16/2019 Ending date: 11/29/2019 (Discontinued) rotigotine (NEUPRO) 2 mg/24 hour patch Dose: 2 mg DAILY Starting date: 11/29/2019 Ending date: 12/09/2019 (Discontinued) rotigotine (NEUPRO) 3 mg/24 hour patch Dose: 1 Patch DAILY Starting date: 12/09/2019 Ending date: 12/09/2019 (Discontinued) rotigotine (NEUPRO) 3 mg/24 hour patch Dose: 1 Patch DAILY Starting date: 12/09/2019 Ending date: 12/09/2019 (Discontinued) rotigotine (NEUPRO) 3 mg/24 hour patch Dose: 1 Patch DAILY Starting date: 12/09/2019 Ending date: 12/28/2019 (Discontinued) rotigotine (NEUPRO) 3 mg/24 hour patch Dose: 1 Patch DAILY Starting date: 12/28/2019 Ending date: 12/26/2020 (Discontinued) Medication marked as long-term Prior Insomnia Medications (last 20 years) Some values may be hidden. Unless noted otherwise, only the newest values recorded on each date are displayed. Insomnia Medications midazolam (PF) injection (VERSED) Dose: Starting date: 02/18/2020 Ending date: 02/18/2020 (Discontinued) midazolam (PF) injection (VERSED) Dose: Starting date: 08/21/2021 Ending date: 08/21/2021 midazolam (PF) injection (VERSED) Dose: Starting date: 08/21/2021 Ending date: 08/21/2021 (Discontinued) sertraline (ZOLOFT) 50 mg tablet Dose: 50 mg DAILY Starting date: 07/30/2022 Ending date: 10/30/2022 (Discontinued) sertraline (ZOLOFT) 50 mg tablet Dose: 50 mg DAILY Starting date: 10/30/2022 Ending date: 11/19/2022 (Discontinued) sertraline (ZOLOFT) 50 mg tablet Dose: 50 mg DAILY Starting date: 11/20/2022 (active) Medication marked as long-term PHYSICAL EXAMINATION: Vital signs not obtained d/t virtual visit. General appearance: NAD, well groomed HEENT: Normocephalic, atraumatic Neuro: Awake, alert, memory grossly intact, speech is fluent Respiratory: No increased work of breathing; able to speak in complete sentences Psych: Appropriate, normal affect IMPRESSION: José Miguel (obstructive sleep apnea) (primary encounter diagnosis) Intolerance of continuous positive airway pressure (cpap) ventilation Restless legs syndrome (rls) Encounter for long-term opiate analgesic use Nancy Enamorado is a pleasant 52 year old male with PMH of JOSÉ MIGUEL on CPAP, RLS, small fiber polyneuropathy, brachial neuritis, HTN, hypertriglyceridemia, drug induced constipation, hypogonadism, 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 A Home Sleep Test (HST) performed on 09/02/2020 revealed severe JOSÉ MIGUEL (AHI of 36.6) that was associated with a minimum oxygen saturation of 71%; (3% hypopnea scoring; BMI 36.2). A PAP titration study completed on 09/29/2020 showed that a setting of 15 cmH2O normalized the AHI and maintained O2 saturation above 94 %; (3% hypopnea scoring; BMI 36.4). Patient reports compliance with PAP therapy and perceived benefit of treatment, however, he is struggling with his CPAP causing disruption to sleep. Per download from 12/02/2022 - 12/31/2022, patient uses PAP therapy an average of 6.5-7 hours, and PAP use is >/= 4 hours on 97% of nights; Current setting of 8-15 cmH2O is controlling JOSÉ MIGUEL well (residual AHI 4.6). He reports he is constantly readjusting his mask during the night. He also struggles with the hose needing to be moved around at night due to tugging. He has tried hanging the hose and using hose supports without relief of tugging and disruption. He has some mild claustrophobia with the mask, and sometimes feels he needs to remove it at night to breathe. He feels CPAP has been very cumbersome. The mask vent blows air onto during the night and is bothersome to her as well. He is interested in alternatives to PAP therapy, particularly Inspire. Inspire was discussed today at length, including criteria for qualification, MOA, and care pathway. He has a longstanding h/o RLS, and has been treated in the past with gabapentin, Lyrica, and dopamine agonists without relief. He is now taking methadone 7.5mg nightly, which is controlling he RLS well. He denies SE/ADR with current treatment. He has no h/o iron deficiency. He has vitamin D deficiency and completed Rx vitamin D x 12 weeks by his PCP. He is compliant with appointments and requirements for controlled substance prescribing. PLAN: JOSÉ MIGUEL: - Continue Auto CPAP at increased settings of 11-15 cmH2O for the time being (settings changed remotely in AirView system) - We will see if increased settings makes CPAP more comfortable during the night and prevents you from feeling a need to remove the mask - If you do not tolerate these changes, please let me know and we can readjust. - Remember to clean your mask and equipment regularly, as directed. - Avoid use of ozone display manager, SoClean devices, or UV cleaning devices - Avoid using alcohol or alcohol-containing products on your mask, as this may compromise the integrity of the mask materials and contribute to leak issues - Use only baby shampoo and water, mild dish soap and water, or CPAP-specific wipes to clean your supplies. - You should be eligible for new supplies approximately every 3-6 months, depending on your insurance coverage. Contact your Durable Medical Equipment (DME) company for new supplies as needed. - DME: [facility] - Given reported intolerance to CPAP and difficulties with use, we will refer to ENT for consideration of Inspire - Call to schedule as discussed - Inspire criteria, MOA, and treatment pathway reviewed - As discussed, mild weight loss may be needed to qualify RLS: - Continue methadone 7.5mg nightly for RLS symptoms - Prescriptions for Jan & Feb 2023 provided - In accordance with department regulations, in order for controlled substances to be prescribed, you must be evaluated by a Sleep physician at least once yearly, and must attend at least one in-person visit per year. - Your medications require that you follow-up every 3 months for refills. - Other requirements for use of controlled substances may include urine tox screenings and EKGs/cardiac evaluations. - Utox completed 09/2022 - Scheduled 03/07/[address] Man - Keep scheduled follow-up visit with Dr. Donovan Correa, BRITTANY.STOGY ROLLER I spent a total of 35 minutes on the date of the service which included preparing to see the patient, [id number] patient care, completing clinical documentation, obtaining and/or reviewing separately obtained history, performing a medically appropriate examination, counseling and educating the patient/family/caregiver, and ordering medications, tests, or procedures. documented in this encounter [facility] 11-25-2022 Miscellaneous Notes PDMP website checked and validated. All prescriptions have been APPROPRIATELY filled. No suspicious activity was identified. 11/25/2022 by Karli Correa APRN.CNP Methadone 5mg tab Last filled 11/09/2022 #30 for 30 days. Will increase back to 7.5mg nightly Rx for #45 with 0 RF signed. Karli Correa APRN.CNP 11/25/22 5:23 PM Pt requesting Methadone to be increased back to original dose. Should patient f/u to further discuss? 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 A Home Sleep Test (HST) performed on 09/02/2020 revealed severe JOSÉ MIGUEL (AHI of 36.6) that was associated with a minimum oxygen saturation of 71%; (3% hypopnea scoring; BMI 36.2). A PAP titration study completed on 09/29/2020 showed that a setting of 15 cmH2O normalized the AHI and maintained O2 saturation above 94 %; (3% hypopnea scoring; BMI 36.4). Patient reports compliance with PAP therapy and perceived benefit of treatment. Per download from 08/31/2022 - 09/29/2022, patient uses PAP therapy an average of 7 hours, and PAP use is >/= 4 hours on 93% of nights; Current setting of 8-15 cmH2O is controlling JOSÉ MIGUEL well (residual AHI 2.9). He denies mask or pressure intolerance. He has a longstanding h/o RLS, and has been treated in the past with gabapentin, Lyrica, and dopamine agonists without relief. He is now taking methadone, which is controlling he RLS well. His dose was increased from methadone 5mg QPM to 7.5mg QPM, however he has more recently been using only 5mg every evening most nights, and feels this is adequately controlling his RLS. He would like to reduce his dose of methadone back to 5mg every evening. He denies SE/ADR with current treatment. He has no h/o iron deficiency. He has vitamin D deficiency and was started on Rx vitamin D x 12 weeks by his PCP; he is still completing this course. UDS collected today. He is compliant with appointments and requirements for controlled substance prescribing. PLAN: JOSÉ MIGUEL: - Continue Auto CPAP at current settings of 8-15 cmH2O. - Sleep apnea is presently well controlled! Keep up the great work! - Remember to clean your mask and equipment regularly, as directed. - Avoid use of ozone display manager, SoClean devices, or UV cleaning devices - Avoid using alcohol or alcohol-containing products on your mask, as this may compromise the integrity of the mask materials and contribute to leak issues - Use only baby shampoo and water, mild dish soap and water, or CPAP-specific wipes to clean your supplies. - You should be eligible for new supplies approximately every 3-6 months, depending on your insurance coverage. Contact your [employer] company for new supplies as needed. - Order will be sent to [employer] for supplies: [employer] - Soo RLS: - Will reduce methadone back to 5mg every evening for management of RLS - Will only send 1 month supply of methadone, due to desire to change to [facility] pharmacy next month - Contact us for refills once [facility] is open - In accordance with department regulations, in order for controlled substances to be prescribed, you must be evaluated by a Sleep physician at least once yearly, and must attend at least one in-person visit per year. - Your medications require that you follow-up every 3 months for refills. - Other requirements for use of controlled substances may include urine tox screenings and EKGs/cardiac evaluations. - Utox ordered and completed in office today - Schedule 3 month follow-up visit with [facility] [facility]. This visit may be scheduled for in-office or virtual. - Schedule appt for Feb [address] Donovan Correa APRN.STOGY ROLLER documented in this encounter [facility] 11-20-2022 Miscellaneous Notes PDMP website checked and validated. All prescriptions have been APPROPRIATELY filled. No suspicious activity was identified. 11/20/2022 by Genesis Spencer APRN.STOGY ROLLER Patient phones requesting refills as follows: Requested Prescriptions Pending Prescriptions Disp Refills testosterone cypionate (DEPO-TESTOSTERONE) 200 mg/mL injection 6 mL 0 Sig: Inject 1 mL intramuscularly every 2 weeks for 90 days. SWAPNA 02/10/2023 NOV 11/08/2022 Please review and advise. Angela Cespedes LPN documented in this encounter [facility] 11-20-2022 Miscellaneous Notes Patient has been identified by name and date of : Yes Requested Prescriptions Pending Prescriptions Disp Refills sertraline (ZOLOFT) 50 mg tablet 90 tablet 1 Sig: Take 1 tablet by mouth once daily. metFORMIN (GLUCOPHAGE) 500 mg tablet 180 tablet 1 Sig: Take 1 tablet by mouth twice daily with meals. RX INSTRUCTIONS: Patient aware RX will be sent to pharmacy. No need to notify patient. Patient last office visit: 11/08/22 Patient next office visit: 02/10/23 Pt requesting mail order Abbie Altamirano MA documented in this encounter [facility] 09-30-2022 Instructions Karli Correa APRN.STOGY ROLLER - 09/30/2022 4:01 PM EDT Images from the original note were not included. PLAN: JOSÉ MIGUEL: - Continue Auto CPAP at current settings of 8-15 cmH2O. - Sleep apnea is presently well controlled! Keep up the great work! - Remember to clean your mask and equipment regularly, as directed. - Avoid use of ozone display manager, SoClean devices, or UV cleaning devices - Avoid using alcohol or alcohol-containing products on your mask, as this may compromise the integrity of the mask materials and contribute to leak issues - Use only baby shampoo and water, mild dish soap and water, or CPAP-specific wipes to clean your supplies. - You should be eligible for new supplies approximately every 3-6 months, depending on your insurance coverage. Contact your Durable Medical Equipment (DME) company for new supplies as needed. - Order will be sent to [employer] for supplies: [employer] - Soo RLS: - Continue methadone 5mg every evening for management of RLS - Will only send 1 month supply due to desire to change to [facility] pharmacy next month - Contact us for refills once [facility] is open - In accordance with department regulations, in order for controlled substances to be prescribed, you must be evaluated by a Sleep physician at least once yearly, and must attend at least one in-person visit per year. - Your medications require that you follow-up every 3 months for refills. - Other requirements for use of controlled substances may include urine tox screenings and EKGs/cardiac evaluations. - Utox ordered and completed in office today - Schedule 3 month follow-up visit with [facility] EXP[facility]. This visit may be scheduled for in-office or virtual. - Schedule appt for Feb [address] Donovan MATHIAS Supply Guidelines Below are the guidelines for reordering your supplies. You will be responsible for your deductible, co-payments, and out of pocket expenses. Item Medicare & Commercial Insurance Medicaid & HCAP Nasal Mask (no headgear) 1 every 3 months 1 per year Nasal Mask Cushion 1 every month 2 per year Full Face Mask (no headgear) 1 every 3 months 1 per year Full Face Mask Cushion 1 every month *Self-Pay Nasal Pillows 2 every month 2 per year Headgear 1 every 6 months 1 per year Chin Strap 1 every 6 months 2 per year Tubing 1 every 3 months 1 per year Filters: Reusable 1 every 6 months 4 per year Filters: Disposable 2 every month 1 per month Humidifier Chamber(disposable) 1 every 6 months *Self-Pay Contacting the Sleep Disorders Center: - Appointments can be scheduled through the central scheduling system for the [facility] at [phone]. - Call the Sleep Disorders Center at [phone] for questions. - May use Message My Doc through [employer] for questions. - [facility] website: [email or web address] documented in this encounter [facility] 09-30-2022 History of Present illness Narrative Images from the original note were not included. [facility] Follow up/ Established patient visit Date of last visit: 08/02/2022 Per last visit: IMPRESSION: José Miguel on cpap (primary encounter diagnosis) Restless legs syndrome (rls) Chronic use of opiate for therapeutic purpose Idiopathic small fiber peripheral neuropathy Benign prostatic hyperplasia, unspecified whether lower urinary tract symptoms present Hypertriglyceridemia Iron deficiency anemia, unspecified iron deficiency anemia type Primary hypertension Obesity, class ii, bmi 35-39.9 Clinical Global Impression of Change ( CGI-C) Compared to the patient's condition at baseline, how much has the patient changed? Much improved This is a pleasant 51-year-old male who presents via virtual visit for his follow-up management of JOSÉ MIGUEL on PAP therapy and RLS. He is doing very well with PAP therapy, needs compliance, reports subjective benefit, and has excellent control with a residual AHI of 1.5 on his recent download. His treatment refractory severe RLS has been managed with methadone. He reports since last visit his symptoms have increased and have been bothersome on average approximately 4 nights a week. He currently takes 5 mg of methadone and about 7 PM and reports symptoms start about 8 PM. He denies aggravating factors. He denies side effects of medication. PLAN: JOSÉ MIGUEL - Continue Auto CPAP at 8-15cm H2O. - Remember to clean your mask and equipment regularly, as directed. - You should be eligible for new supplies approximately every 3-6 months, depending on your insurance coverage. Contact your Durable Medical Equipment (DME) company for new supplies as needed. RLS Discussed RLS symptom increase with Dr. Saldana. Will increase Methadone to 7.5 mg nighty for treatment of RLS for increase in symptoms. Rx x 3 months sent to pharmacy. Obtain annual utox prior to next appt. PDMP website checked and validated. All prescriptions have been APPROPRIATELY filled. No suspicious activity was identified. 08/02/2022 by Ganesh Ojeda APRN.MARTA Ojeda APRN.STOGY ROLLER Here for follow up for JOSÉ MIGUEL and RLS Interval history : Patient denies any sleep-related concerns. He takes methadone 7.5 mg (1.5 x 5mg tab) every evening for RLS, and his symptoms have been very well-controlled. He reports he has been taking methadone 5mg most evenings, and his RLS has been well-controlled. He would like to try decreasing his dose of methadone back down to 5mg daily. SLEEP APNEA A Home Sleep Test (HST) performed on 09/02/2020 revealed severe JOSÉ MIGUEL (AHI of 36.6) that was associated with a minimum oxygen saturation of 71%; (3% hypopnea scoring; BMI 36.2). A PAP titration study completed on 09/29/2020 showed that a setting of 15 cmH2O normalized the AHI and maintained O2 saturation above 94 %; (3% hypopnea scoring; BMI 36.4). Sleep apnea type : JOSÉ MIGUEL, Most Recent Apnea-Hypopnea Index (AHI): 36.6 Treatment : PAP therapy DME: [facility] PAP History: Uses AutoPAP for 7 hours per night, 7 nights per week. Current PAP settin-15 cm H2O. Difficulties with AutoPAP: None Reviewed objective PAP compliance data: Yes Mask type: nasal mask Mask issues: none Uses chin strap: No Uses humidity: Distilled water There is a perceived benefit by the patient: Yes Observers report abolition of snoring with AutoPAP use. ------- RLS: Treatment: Methadone 7.5 mg (1.5 x 5mg tab) - typically takes around 7:00 pm Status: Improved -- he is only taking 1 tab nightly most nights, instead of 1.5 tabs, and feels RLS remains well-controlled. Would like to try to reduce dose to methadone 5mg every evening. Symptom free all day on current tx. Prior treatment: Lyrica, Gabapentin, Pramipexole, Requip -Medication: Methadone 7.5mg (1.5 x 5mg tab) every evening -Timin PM -Side effects: Denies -Benefit: Yes -Last filled: 09/07/2022 (#45 for 30 day supply) PDMP website checked and validated. All prescriptions have been APPROPRIATELY filled. No suspicious activity was identified. 09/30/2022 by Karli Correa APRN.STOGY ROLLER Urine tox: Due Latest Reference Range & Units 01/02/21 08:57 Amphetamines Negative Negative Barbiturates Negative Negative Benzodiazepines Urine Negative Negative Cocaine Urine Negative Negative Cannabinoids, Urine Negative Negative Ethanol, Urine <11 mg/dL <11 Opiates Negative Negative Phencyclidine Negative Negative Oxycodone, Urine Negative Negative State of Residence: [place] Pharmacy: [facility]-- plans to change pharmacy to [facility] in [place] when they open next month. Has not taken iron in last 5 years. Ferritin Date Value Ref Range Status 07/06/2021 308.0 30.3 - 565.7 ng/mL Final 01/02/2021 378.0 30.3 - 565.7 ng/mL Final 08/02/2019 280.0 30.3 - 565.7 ng/mL Final Transferrin Saturation Date Value Ref Range Status 07/06/2021 37 15 - 57 % Final 01/02/2021 44 15 - 57 % Final 08/02/2019 23 15 - 57 % Final Iron Date Value Ref Range Status 07/06/2021 91 41 - 186 ug/dL Final 01/02/2021 112 41 - 186 ug/dL Final 08/02/2019 74 41 - 186 ug/dL Final TIBC Date Value Ref Range Status 07/06/2021 249 232 - 386 ug/dL Final 01/02/2021 255 232 - 386 ug/dL Final 08/02/2019 316 232 - 386 ug/dL Final Hemoglobin Date Value Ref Range Status 07/30/2022 15.4 13.0 - 17.0 g/dL Final 06/15/2022 15.3 13.0 - 17.0 g/dL Final Vitamin D 25 Hydroxy Date Value Ref Range Status 07/30/2022 19.1 (L) 31.0 - 80.0 ng/mL Final Comment: Classification of 25 [place] Vitamin D status: Deficiency/Insufficiency: < or = 30 ng/ml. Sufficiency/Optimal Levels: 31-80 ng/mL Toxicity: > 100 ng/mL. Test performed by chemiluminescent immunoassay. 08/13/2021 12.4 (L) 31.0 - 80.0 ng/mL Final Comment: Classification of 25 OH Vitamin D status: Deficiency/Insufficiency: < or = 30 ng/ml. Sufficiency/Optimal Levels: 31-80 ng/mL Toxicity: > 100 ng/mL. Test performed by chemiluminescent immunoassay. SLEEP HYGIENE QUESTIONS: Bedtime : 10 PM Time it takes to fall sleep : Quickly Number of times patient wakes up per night : 2x/night Reason (s) why patient wakes up during the night : to void once; Estimated total sleep time ( in a 24 hour period of time) : 7 hours Naps : Occasionally; maybe once monthly 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 Sleep Questions 09/30/2022 Reason for visit: Sleep apnea, Restless Legs Syndrome Average hours slept in 24 hours: 7 Average hours of CPAP per night: 7 Percent of nights CPAP used at least 4 hours: 100 Accidents or near accidents due to drowsy drivin Sullivan Sleepiness Scale 06/13/2022 07/29/2022 09/30/2022 Score 2 (No daytime sleepiness) 2 (No daytime sleepiness) 4 (No daytime sleepiness) PROMIS CAT Sleep Disturbance 06/13/2022 07/29/2022 09/30/2022 PROMIS Sleep Disturbance T-Score 46 (within normal limits) 63 (moderate) 38 (within normal limits) PROMIS Sleep Disturbance Percentile 66 % 10 % 88 % Insomnia Severity Index 02/26/2020 12/09/2021 07/29/2022 Score 26 19 14 Restless Leg Syndrome 06/13/2022 07/29/2022 09/30/2022 Score 20 24 23 PHQ-9 07/23/2022 07/30/2022 09/30/2022 Score 8 16 3 PROMIS Global Health - (T-Scores - the mean of general population = 50. Five points is a clinically meaningful difference.) 06/13/2022 06/13/2022 09/30/2022 Physical T-Score 54.1 54.1 54.1 Mental T-Score 33.8 33.8 53.3 PMH, PSH, SH: Reviewed SLEEP RELATED ROS Review of Systems Cardiovascular: Negative for chest pain and palpitations. Gastrointestinal: Negative for nausea and heartburn. Musculoskeletal: Negative for uncomfortable leg sensations (well-controlled). Neurological: Negative for headaches. ALLERGIES No Known Allergies CURRENT MEDICATIONS: Tadalafil (CIALIS) 5 mg tablet Take 1 tablet by mouth once daily. white petrolatum-mineral Oil (ARTIFICIAL TEARS, CASS/MIN,) 83-15 % oint Use 1 application in the left eye daily at bedtime. cholecalciferol, Vitamin D3, (VITAMIN D3) 1,250 mcg (50,000 unit) cap capsule Take 1 capsule by mouth one time a week. metFORMIN (GLUCOPHAGE) 500 mg tablet Take 1 tablet by mouth twice daily with meals. methadone (DOLOPHINE) 5 mg tablet Take 1.5 tablets by mouth every evening for 30 days. For refractory restless leg syndrome. Do not start before September 08, 2022. [START ON 10/08/2022] methadone (DOLOPHINE) 5 mg tablet Take 1.5 tablets by mouth every evening for 30 days. for treatment refractory restless legs syndrome Do not start before October 08, 2022. sertraline (ZOLOFT) 50 mg tablet Take 1 tablet by mouth once daily. testosterone cypionate (DEPO-TESTOSTERONE) 200 mg/mL injection Inject 1 mL intramuscularly every 2 weeks for 90 days. lisinopril-hydroCHLOROthiazide (PRINZIDE,ZESTORETIC) 20-12.5 mg per tablet Take 2 tablets by mouth once daily. atorvastatin (LIPITOR) 20 mg tablet Take 1 tablet by mouth daily at bedtime. For cholesterol. CPAP Provide lifetime supplies for AutoPAP 8-15 cm H20 including nasal pillow mask, heated tubing, humidity, filters and fax download report to assess residual AHI to [phone]. Dx: G47.33 CPAP Increase autopap pressure to 8-15 cm of water with humidification. Mask (per patient preference) optional chin strap (if indicated) , filters, tubing, humidifier and lifetime supplies. Syringe with Needle, Disp, 3 mL 25 x 1 1/2 1 Each every 2 weeks. methadone (DOLOPHINE) 5 mg tablet Take 1.5 tablets by mouth every evening for 30 days. 1.5 tablet po q bedtime for treatment refractory restless legs syndrome Do not start before August 09, 2022. methadone (DOLOPHINE) 5 mg tablet 1 tablet at night for refractory RLS pain Do not start before May 13, 2022. Prior RLS Medications (last 20 years) Some values may be hidden. Unless noted otherwise, only the newest values recorded on each date are displayed. RLS Medications meperidine (PF) 12.5 mg injection (DEMEROL) Dose: 12.5 mg ONCE May Repeat 12.5 mg in 10 minutes X1 for Continued Shivering Starting date: 08/21/2021 Ending date: 08/21/2021 (Discontinued) methadone (DOLOPHINE) 5 mg tablet Dose: 2.5 mg DAILY IN THE LATE AFTERNOON For RLS-pain Starting date: 03/20/2021 Ending date: 03/26/2021 (Discontinued) methadone (DOLOPHINE) 5 mg tablet Dose: 5 mg DAILY IN THE LATE AFTERNOON For RLS-pain Starting date: 03/26/2021 Ending date: 04/18/2021 (Discontinued) methadone (DOLOPHINE) 5 mg tablet Dose: 5 mg DAILY IN THE LATE AFTERNOON For RLS-pain Starting date: 04/25/2021 Ending date: 05/16/2021 (Discontinued) methadone (DOLOPHINE) 5 mg tablet Dose: 5 mg DAILY IN THE LATE AFTERNOON For RLS-pain Starting date: 07/24/2021 Ending date: 07/06/2021 (Discontinued) methadone (DOLOPHINE) 5 mg tablet Dose: 5 mg DAILY IN THE LATE AFTERNOON For RLS-pain Starting date: 06/24/2021 Ending date: 07/06/2021 (Discontinued) methadone (DOLOPHINE) 5 mg tablet Dose: 5 mg DAILY IN THE LATE AFTERNOON For RLS-pain Starting date: 05/25/2021 Ending date: 07/06/2021 (Discontinued) methadone (DOLOPHINE) 5 mg tablet Dose: 1 tablet po q bedtime for treatment refractory restless legs syndrome Starting date: 12/13/2021 Ending date: 01/11/2022 (Discontinued) methadone (DOLOPHINE) 5 mg tablet Dose: 1 tablet po q bedtime for treatment refractory restless legs syndrome Do not start before January 13, 2022. Starting date: 01/13/2022 Ending date: 02/11/2022 (Discontinued) methadone (DOLOPHINE) 5 mg tablet Dose: 1 tablet po q bedtime for treatment refractory restless legs syndrome Starting date: 02/11/2022 Ending date: 03/14/2022 (Discontinued) methadone (DOLOPHINE) 5 mg tablet Dose: 1 tablet po q bedtime for treatment refractory restless legs syndrome Starting date: 03/14/2022 Ending date: 04/08/2022 (Discontinued) methadone (DOLOPHINE) 5 mg tablet Dose: 1 tablet po q bedtime for treatment refractory restless legs syndrome Do not start before April 13, 2022. Starting date: 04/13/2022 Ending date: 06/09/2022 (Discontinued) methadone (DOLOPHINE) 5 mg tablet Dose: 1 tablet at night for refractory RLS pain Do not start before May 13, 2022. Starting date: 05/13/2022 Ending date: 07/08/2022 methadone (DOLOPHINE) 5 mg tablet Dose: 1 tablet po q bedtime for treatment refractory restless legs syndrome Starting date: 06/11/2022 Ending date: 06/20/2022 (Discontinued) methadone (DOLOPHINE) 5 mg tablet Dose: 1 tablet po q bedtime for treatment refractory restless legs syndrome Do not start before July 11, 2022. Starting date: 07/11/2022 Ending date: 08/02/2022 (Discontinued) methadone (DOLOPHINE) 5 mg tablet Dose: 7.5 mg EVERY EVENING 1.5 tablet po q bedtime for treatment refractory restless legs syndrome Starting date: 08/09/2022 Ending date: 09/08/2022 methadone (DOLOPHINE) 5 mg tablet Dose: 7.5 mg EVERY EVENING For refractory restless leg syndrome. Starting date: 09/08/2022 Ending date: 10/08/2022 methadone (DOLOPHINE) 5 mg tablet Dose: 7.5 mg EVERY EVENING for treatment refractory restless legs syndrome Starting date: 10/08/2022 Ending date: 11/07/2022 methadone 5 mg/5 mL solution Dose: 4 mg EVERY EVENING For RLS-pain Starting date: 07/06/2021 Ending date: 07/31/2021 (Discontinued) methadone 5 mg/5 mL solution Dose: 4 mg EVERY EVENING For RLS-pain Starting date: 07/31/2021 Ending date: 09/03/2021 (Discontinued) methadone 5 mg/5 mL solution Dose: 4 mg EVERY EVENING For RLS-pain Starting date: 09/03/2021 Ending date: 09/26/2021 (Discontinued) methadone 5 mg/5 mL solution Dose: 4 mg EVERY EVENING For RLS-pain Starting date: 10/06/2021 Ending date: 10/05/2021 (Discontinued) methadone 5 mg/5 mL solution Dose: 4 mg EVERY EVENING For RLS-pain Starting date: 11/05/2021 Ending date: 12/13/2021 (Discontinued) methadone 5 mg/5 mL solution Dose: 4 mg EVERY EVENING For RLS-pain Starting date: 10/05/2021 Ending date: 12/13/2021 (Discontinued) oxyCODONE IR 5 mg tab(s) (ROXICODONE) Dose: 5 mg NEEDED Starting date: 08/21/2021 Ending date: 08/21/2021 (Discontinued) oxyCODONE IR (ROXICODONE) 5 mg immediate release tablet Dose: 5 mg EVERY 6 HOURS NEEDED for more severe postop pain after surgery. Starting date: 08/20/2021 Ending date: 08/27/2021 Pramipexole (MIRAPEX ER) 0.375 mg Tb24 Dose: 1.125 mg EVERY EVENING And decrease as recommended by physician Starting date: 12/26/2020 Ending date: 03/23/2021 (Discontinued) Pramipexole (MIRAPEX ER) 1.5 mg Tb24 Dose: 1.5 mg AT BEDTIME Starting date: Ending date: 08/02/2019 (Discontinued) Pramipexole (MIRAPEX ER) 1.5 mg Tb24 Dose: 1.5 mg EVERY EVENING Starting date: 12/26/2020 Ending date: 03/23/2021 (Discontinued) pramipexole (MIRAPEX) 0.5 mg tablet Dose: 0.5 mg 2 TIMES DAILY (Patient taking differently: 0.5 mg BID as of 09/21/2019 8:20 AM) Starting date: 08/19/2019 Ending date: 11/16/2019 (Discontinued) rOPINIRole (REQUIP) 0.5 mg tablet Dose: 0.5 mg AT BEDTIME Starting date: 08/02/2019 Ending date: 08/04/2019 (Discontinued) rOPINIRole (REQUIP) 1 mg tablet Dose: 1 mg AT BEDTIME Starting date: 08/04/2019 Ending date: 08/19/2019 (Discontinued) rotigotine (NEUPRO) 1 mg/24 hour patch Dose: 1 Patch DAILY Starting date: 11/16/2019 Ending date: 11/29/2019 (Discontinued) rotigotine (NEUPRO) 2 mg/24 hour patch Dose: 2 mg DAILY Starting date: 11/29/2019 Ending date: 12/09/2019 (Discontinued) rotigotine (NEUPRO) 3 mg/24 hour patch Dose: 1 Patch DAILY Starting date: 12/09/2019 Ending date: 12/09/2019 (Discontinued) rotigotine (NEUPRO) 3 mg/24 hour patch Dose: 1 Patch DAILY Starting date: 12/09/2019 Ending date: 12/09/2019 (Discontinued) rotigotine (NEUPRO) 3 mg/24 hour patch Dose: 1 Patch DAILY Starting date: 12/09/2019 Ending date: 12/28/2019 (Discontinued) rotigotine (NEUPRO) 3 mg/24 hour patch Dose: 1 Patch DAILY Starting date: 12/28/2019 Ending date: 12/26/2020 (Discontinued) Medication marked as long-term BP 116/75 (BP Site: Right Arm, BP Position: Sitting, BP Cuff Size: Large Adult) Pulse 72 Temp (!) 35.7 C (96.3 F) Resp 20 Ht 180.3 cm (5' 11) Wt 120.2 kg (265 lb) SpO2 97% BMI 36.96 kg/m PHYSICAL EXAMINATION: General appearance: NAD, well groomed HEENT: Normocephalic, atraumatic Neuro: Awake, alert, memory grossly intact, speech is fluent Respiratory: No increased work of breathing; able to speak in complete sentences Psych: Appropriate, normal affect IMPRESSION: Restless legs syndrome (rls) (primary encounter diagnosis) José Miguel on cpap [facility] prescription opiate use Nancy Enamorado is a pleasant 51 year old male with PMH of JOSÉ MIGUEL on CPAP, RLS, small fiber polyneuropathy, brachial neuritis, HTN, hypertriglyceridemia, drug induced constipation, hypogonadism, 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 A Home Sleep Test (HST) performed on 09/02/2020 revealed severe JOSÉ MIGUEL (AHI of 36.6) that was associated with a minimum oxygen saturation of 71%; (3% hypopnea scoring; BMI 36.2). A PAP titration study completed on 09/29/2020 showed that a setting of 15 cmH2O normalized the AHI and maintained O2 saturation above 94 %; (3% hypopnea scoring; BMI 36.4). Patient reports compliance with PAP therapy and perceived benefit of treatment. Per download from 08/31/2022 - 09/29/2022, patient uses PAP therapy an average of 7 hours, and PAP use is >/= 4 hours on 93% of nights; Current setting of 8-15 cmH2O is controlling JOSÉ MIGUEL well (residual AHI 2.9). He denies mask or pressure intolerance. He has a longstanding h/o RLS, and has been treated in the past with gabapentin, Lyrica, and dopamine agonists without relief. He is now taking methadone, which is controlling he RLS well. His dose was increased from methadone 5mg QPM to 7.5mg QPM, however he has more recently been using only 5mg every evening most nights, and feels this is adequately controlling his RLS. He would like to reduce his dose of methadone back to 5mg every evening. He denies SE/ADR with current treatment. He has no h/o iron deficiency. He has vitamin D deficiency and was started on Rx vitamin D x 12 weeks by his PCP; he is still completing this course. UDS collected today. He is compliant with appointments and requirements for controlled substance prescribing. PLAN: JOSÉ MIGUEL: - Continue Auto CPAP at current settings of 8-15 cmH2O. - Sleep apnea is presently well controlled! Keep up the great work! - Remember to clean your mask and equipment regularly, as directed. - Avoid use of ozone display manager, SoClean devices, or UV cleaning devices - Avoid using alcohol or alcohol-containing products on your mask, as this may compromise the integrity of the mask materials and contribute to leak issues - Use only baby shampoo and water, mild dish soap and water, or CPAP-specific wipes to clean your supplies. - You should be eligible for new supplies approximately every 3-6 months, depending on your insurance coverage. Contact your Durable Medical Equipment (DME) company for new supplies as needed. - Order will be sent to [employer] for supplies: [employer] [facility] [place] RLS: - Will reduce methadone back to 5mg every evening for management of RLS - Will only send 1 month supply of methadone, due to desire to change to [facility] pharmacy next month - Contact us for refills once [facility] is open - In accordance with department regulations, in order for controlled substances to be prescribed, you must be evaluated by a Sleep physician at least once yearly, and must attend at least one in-person visit per year. - Your medications require that you follow-up every 3 months for refills. - Other requirements for use of controlled substances may include urine tox screenings and EKGs/cardiac evaluations. - Utox ordered and completed in office today - Schedule 3 month follow-up visit with [employer]. This visit may be scheduled for in-office or virtual. - Schedule appt for Feb [address] Donovan Correa APRN.MARTA I spent a total of 30 minutes on the date of the service which included preparing to see the patient, [id number] patient care, completing clinical documentation, obtaining and/or reviewing separately obtained history, performing a medically appropriate examination, counseling and educating the patient/family/caregiver, and ordering medications, tests, or procedures. documented in this encounter [facility] 09-16-2022 Miscellaneous Notes Patient phones requesting refills as follows: Requested Prescriptions Pending Prescriptions Disp Refills Tadalafil (CIALIS) 5 mg tablet 90 tablet 1 Sig: Take 1 tablet by mouth once daily. SWAPNA 08/30/22 NOV 01/28/23 Please review and advise. Xiomara Lindsay LPN documented in this encounter [facility] 09-05-2022 Miscellaneous Notes MyChart message sent documented in this encounter [facility] 08-30-2022 Miscellaneous Notes Patient notified. Angela Cespedes LPN Let patient know I am sending in a gel for his eye he can use at bedtime which will last longer than the tears. Genesis Spencer APRN.MARTA documented in this encounter [facility] 08-30-2022 Instructions Genesis Spencer APRN.CNP - 08/30/2022 12:42 PM EDT Images from the original note were not included. To schedule a diabetic eye exam at the [facility] [place], please call: [phone] Online resources to learn more [email or web address]/diabetes/ complications/eye-complications https://[email or web address].org/healthy-eyes/e jv-lsm-umkjdp-conditions/diabetic- retinopathy?sso=y [email or web address]://[email or web address].StartX References 1. National Diabetes Statistics Report 2020: Estimates of Diabetes and Its Mobile in the [facility]. Center for Disease Control and Prevention; 2020. Available at: https://www.cdc.gov/diabetes/pdfs/ data/statistics/national-diabetes- statistics-report.pdf 2. Taylor Hayden, Veronica Celis, Shravan Snyder, Jamila Dean, Keyanna Ascencio, Chucky Mart, Wilner Maldonado, ePpe Weber; Diabetic Retinopathy: A Position Statement by the Citizen Of [place] Diabetes Association. Diabetes Care 14 August 2016; 40 (3): [phone] documented in this encounter [facility] 08-30-2022 History of Present illness Narrative 08/30/2022 Patient presents with: [place] Palsy: [facility] 08/20/2022 SUBJECTIVE: This is a 51 year old that is here today for Above Complaints. Patient diagnosed with new onset Type II DM. Started on metformin. Taking and tolerating without side effects. Checks blood sugar a couple times a week with the highest being around 126. Reports he had been drinking sweetened tea but has since stopped. Seen recently at [facility] for left facial drooping and inability to close left eye. 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 Completed course of prednisone and antiviral. Mild improvement in his facial droop but still unable to close eye fully. Has been using eye drops to keep eye moist. Has been laying on his left side at night with left face to pill to help protect eye PAST MEDICAL HISTORY Diagnosis Date Achilles tendinosis of left lower extremity s/p repair BPH (benign prostatic hyperplasia) Diabetes mellitus type II (HCC) Erectile dysfunction Heel spur, left Hypertension Hypertriglyceridemia Hypogonadism in male Idiopathic neuropathy JOSÉ MIGUEL (obstructive sleep apnea) 08/2020 RLS (restless legs syndrome) Dr Man Thrombosed hemorrhoids 11/2021 Vitamin D deficiency ALLERGIES Patient has no known allergies. MEDICATIONS Current Outpatient Medications Medication Sig cholecalciferol, Vitamin D3, (VITAMIN D3) 1,250 mcg (50,000 unit) cap capsule Take 1 capsule by mouth one time a week. metFORMIN (GLUCOPHAGE) 500 mg tablet Take 1 tablet by mouth twice daily with meals. methadone (DOLOPHINE) 5 mg tablet Take 1.5 tablets by mouth every evening for 30 days. 1.5 tablet po q bedtime for treatment refractory restless legs syndrome Do not start before August 09, 2022. [START ON 09/08/2022] methadone (DOLOPHINE) 5 mg tablet Take 1.5 tablets by mouth every evening for 30 days. For refractory restless leg syndrome. Do not start before September 08, 2022. [START ON 10/08/2022] methadone (DOLOPHINE) 5 mg tablet Take 1.5 tablets by mouth every evening for 30 days. for treatment refractory restless legs syndrome Do not start before October 08, 2022. sertraline (ZOLOFT) 50 mg tablet Take 1 tablet by mouth once daily. testosterone cypionate (DEPO-TESTOSTERONE) 200 mg/mL injection Inject 1 mL intramuscularly every 2 weeks for 90 days. lisinopril-hydroCHLOROthiazide (PRINZIDE,ZESTORETIC) 20-12.5 mg per tablet Take 2 tablets by mouth once daily. methadone (DOLOPHINE) 5 mg tablet 1 tablet at night for refractory RLS pain Do not start before May 13, 2022. atorvastatin (LIPITOR) 20 mg tablet Take 1 tablet by mouth daily at bedtime. For cholesterol. Tadalafil (CIALIS) 5 mg tablet Take 1 tablet by mouth once daily. CPAP Provide lifetime supplies for AutoPAP 8-15 cm H20 including nasal pillow mask, heated tubing, humidity, filters and fax download report to assess residual AHI to [phone]. Dx: G47.33 CPAP Increase autopap pressure to 8-15 cm of water with humidification. Mask (per patient preference) optional chin strap (if indicated) , filters, tubing, humidifier and lifetime supplies. Syringe with Needle, Disp, 3 mL 25 x 1 1/2 1 Each every 2 weeks. No current facility-administered medications for this visit. Medications and allergies reviewed by this provider. SOCIAL HISTORY Social History Tobacco Use Smoking status: Never Smokeless tobacco: Never Vaping Use Vaping Use: Never used Substance Use Topics Alcohol use: Yes Alcohol/week: 2.0 standard drinks Types: 2 Cans of beer per week Drug use: Never REVIEW OF SYSTEMS All other reviewed and negative other than HPI. OBJECTIVE: BP 126/72 Pulse 69 Resp 18 Wt 120.6 kg (265 lb 12.8 oz) SpO2 95% BMI 36.80 kg/m . Vital signs reviewed by this provider. APPEARANCE Well appearing, alert, in no acute distress, well-hydrated, well nourished. EYES Unable to fully close left eye HEAD: left facial droop resent. Smile uneven. Speech Clear SKIN Skin color, texture, turgor normal, no suspicious rashes or lesions to exposed skin Component Latest Ref Rng & Units 07/30/2022 Hemoglobin A1C 4.3 - 5.6 % 6.7 (H) URINE ALBUMIN:CREATININE RATIO Never done DILATED RETINAL EXAM Never done COLORECTAL CANCER SCREENING due on 02/17/2021 INFLUENZA(1) due on 02/14/2022 PNEUMOCOCCAL(2 - PCV) due on 03/14/2022 DEPRESSION ASSESSMENT Never done HEPATITIS B(1 of 3 - 3-dose series) due on 02/02/2023 COVID-19 VACCINE(3 - Booster for Moderna series) due on 02/02/2023 LDL CHOLESTEROL due on 01/26/2023 HBA1C due on 01/27/2023 ANNUAL PCP TEAM CHRONIC DISEASE VISIT due on 07/30/2023 BP CONTROLLED (<130/80) due on 07/30/2023 DIABETIC FOOT EXAM due on 08/31/2023 DTAP,TDAP,TD(2 - Td or Tdap) due on 03/10/2030 HEPATITIS C SCREENING Completed HIV SCREENING Completed SHINGRIX VACCINE Completed ASSESSMENT/PLAN: 1. Diabetes mellitus type II (HCC) - ICD9: 250.00, ICD10: E11.9 (primary diagnosis) - newly diagnosed - Continue current medications - Blood glucose monitoring on a twice a week schedule - Counseled on healthy diet and regular exercise - Discussed need for and benefit of weight loss. BMI 36.80 kg/(m^2) - Discussed diabetic education issues of diabetes complications and monitoring required, hypoglycemic/hyperglycemic symptoms, and medication-specific side effects and monitoring - Follow up in 3 months, sooner should any other issues arise. 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 May use sunglasses or safety glasses to protect while awake. Use artifical tears every four hours and as needed for dry eye - ARTIFICIAL TEARS (PETROLATUM/MINERAL OIL) 83 %-15 % EYE OINTMENT - discussed course of of symptoms, follow-up if symptoms fail to improve over the next few weeks, sooner if needed Genesis Podlogar, BURIAL VAULT MAKER.STOGY ROLLER Prescription instructions reviewed with patient as applicable. Patient advised if symptoms do not improve or if symptoms worsen sooner, to contact their primary care physician. Potential red flag symptoms discussed with the patient. Reviewed appropriate action plan to take if red flag symptoms occur. Patient agreeable to treatment plan. I spent a total of 30 minutes on the date of the service which included preparing to see the patient, [id number] patient care, completing clinical documentation, obtaining and/or reviewing separately obtained history, performing a medically appropriate examination, counseling and educating the patient/family/caregiver, and ordering medications, tests, or procedures. documented in this encounter [facility] 08-14-2022 Miscellaneous Notes Patient telephoned and made aware of results and instructions below. Voices understanding. Appointment scheduled for 08/30/2022. Angela Cespedes LPN Initial testosterone level is low as expected. Restart injections and will recheck levels in 2-3 months. Needs to have testing done 1 week after injection. Vitamin D level severely low. Recommend 50,000 units of vitamin D weekly x 12 weeks and recheck in 3 months. A1c elevated in the diabetic range at 6.7. This is a new diagnosis for this patient. 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 Most common side effect is diarrhea, if he has symptoms please let us know. Other labs normal. documented in this encounter [facility] 08-02-2022 Instructions Ganesh Ojeda APRN.MARTA - 08/02/2022 2:59 PM EST Your most recent body mass index (BMI) that we have on record is 37.58 kg/m2. Obstructive sleep apnea (JOSÉ MIGUEL) worsens with an increase in weight; reduction in weight may improve or resolve your JOSÉ MIGUEL. If you are not already seeking treatment, there are resources available at the [facility] such as a nutrition consultation or referral to weight management programs at our [facility]. Please let us know if we can assist with a referral. PLAN: JOSÉ MIGUEL - Continue Auto CPAP at 8-15cm H2O. - Remember to clean your mask and equipment regularly, as directed. - You should be eligible for new supplies approximately every 3-6 months, depending on your insurance coverage. Contact your Durable Medical Equipment (DME) company for new supplies as needed. RLS Discussed RLS symptom increase with Dr. Saldana. Will increase Methadone to 7.5 mg nighty for treatment of RLS for increase in symptoms. Rx x 3 months sent to pharmacy. documented in this encounter [facility] 08-02-2022 Note HNO ID: [id number] Author: Ganesh Ojeda APRN.MARTA Service: ? Author Type: Nurse Practitioner Type: Progress Notes Filed: 08/02/2022 3:00 PM Note Text: [facility] Follow up/ Established patient visit This is a virtual visit done with patients permission. Date of last visit :03/14/22 IMPRESSION: I: Deferred II: Deferred III: Restless legs syndrome (rls) (primary encounter diagnosis) Chronic use of opiate for therapeutic purpose José Miguel on cpap Iron deficiency anemia, unspecified iron deficiency anemia type Prediabetes Primary hypertension Hypogonadism in male Idiopathic small fiber peripheral neuropathy Hypertriglyceridemia Benign prostatic hyperplasia, unspecified whether lower urinary tract symptoms present IV: 3 medical issues V: 95 now 74 past year PLAN: The patient will continue to use nasal PAP q hs. He will continue to use the methadone q hs as it is the only medication that has treated his treatment resistant severe RLS satisfactory. He is off of Lyrica. I would recommend that the patient avoid alcoholic beverages and any medication or substance that could theoretically be a respiratory depressant as this could exacerbate sleep disordered breathing. I would continue the methadone 5mg po q hs as it is the only medication that has treated his treatment resistant severe RLS satisfactorily. Buprenorphine and Methadone are prescribed for Treatment Refractory Severe Restless Legs Syndrome and RLS-Pain and are one of the preferred opiate type medications given their relative safety profile compared to other opiates on the market, reduced controlled substance scheduling, decreased abuse potential and euphoria, long-acting duration, and anti-NMDA properties that can theoretically additionally benefit Severe Treatment Refractory Restless Legs Syndrome. I counseled the patient on the numerous potential side effects of this opiate type medication including the potential for dependence/addiction/constipation/ sedation/impairment, etc. The patient understands and accepts the risks and benefits of using this type of medication to treat their refractory severe disorder. We will periodically check the [place] Automated Rx Reporting System (OARRS) in order to monitor for suspected abuse or diversion of controlled substances. He will see our STATISTICAL PROGRAMMER ANALYST in 90 days and follow up with his PCP and other specialists on a regular basis. I will be happy to see this gentleman yearly for the controlled Methadone follow ups. It was a pleasure seeing you today in the [facility]. It is a privilege to assist your in your medical care. Please remember to schedule a follow up appointment with me (or one of our Advance Practice Providers) either in person at the [facility] or virtually that fits your schedule. The appointment telephone number for the Sleep Disorder Center is [phone]. The [employer] system may also be used to schedule your next appointment. Please follow up with all of your other medical specialists and primary care provider on a regular basis. If you have any further questions regarding the diagnosis or recommendations, please do not hesitate to send me a Datacastle message or call my collaborating nurse Ambrose at [phone] Extension #5. I spent a total time of over 15 minutes on the date of the service on this case. This included preparing to see the patient by reviewing the medical record prior to examining the patient, interviewing the patient face to face in the clinic or virtually via audio and video secure [facility] technology, ordering appropriate medications/tests/procedures, completing clinical documentation of the visit, counseling and educating the patient/family/caregiver, communicating with other health care providers as well as general care coordination. Jaden Man DO, CBSM, ABSM Staff Physician [facility] [address] [place], [place] [address] Interval history : Here for follow up for follow up management of JOSÉ MIGUEL and RLS. SLEEP APNEA Sleep apnea type : JOSÉ MIGUEL, Most Recent Apnea-Hypopnea Index (AHI): 36.6 Treatment : PAP therapy PAP History: Uses AutoPAP for 7 hours per night, 7 nights per week. Current PAP settin-15 cm H2O. Difficulties with AutoPAP: None Reviewed objective PAP compliance data: Mask type: nasal pillow interface Mask issues: none Uses chin strap: No Uses ramp function: No Uses humidity: yes There is a perceived benefit by the patient: sleep is good Observers report abolition of snoring with AutoPAP use. ------- RLS: Treatment: Methadone 5 mg - typically takes around 7:00 pm Status:Worse since last visit. He is having symptoms 4/7 nights. It lasts ap (more content not included)... [facility] 08-02-2022 History of Present illness Narrative Images from the original note were not included. [facility] Follow up/ Established patient visit This is a virtual visit done with patients permission. Date of last visit :03/14/22 IMPRESSION: I: Deferred II: Deferred III: Restless legs syndrome (rls) (primary encounter diagnosis) Chronic use of opiate for therapeutic purpose José Miguel on cpap Iron deficiency anemia, unspecified iron deficiency anemia type Prediabetes Primary hypertension Hypogonadism in male Idiopathic small fiber peripheral neuropathy Hypertriglyceridemia Benign prostatic hyperplasia, unspecified whether lower urinary tract symptoms present IV: 3 medical issues V: 95 now 75 past year PLAN: The patient will continue to use nasal PAP q hs. He will continue to use the methadone q hs as it is the only medication that has treated his treatment resistant severe RLS satisfactory. He is off of Lyrica. I would recommend that the patient avoid alcoholic beverages and any medication or substance that could theoretically be a respiratory depressant as this could exacerbate sleep disordered breathing. I would continue the methadone 5mg po q hs as it is the only medication that has treated his treatment resistant severe RLS satisfactorily. Buprenorphine and Methadone are prescribed for Treatment Refractory Severe Restless Legs Syndrome and RLS-Pain and are one of the preferred opiate type medications given their relative safety profile compared to other opiates on the market, reduced controlled substance scheduling, decreased abuse potential and euphoria, long-acting duration, and anti-NMDA properties that can theoretically additionally benefit Severe Treatment Refractory Restless Legs Syndrome. I counseled the patient on the numerous potential side effects of this opiate type medication including the potential for dependence/addiction/constipation/ sedation/impairment, etc. The patient understands and accepts the risks and benefits of using this type of medication to treat their refractory severe disorder. We will periodically check the [place] Automated Rx Reporting System (OARRS) in order to monitor for suspected abuse or diversion of controlled substances. He will see our STATISTICAL PROGRAMMER ANALYST in 90 days and follow up with his PCP and other specialists on a regular basis. I will be happy to see this gentleman yearly for the controlled Methadone follow ups. It was a pleasure seeing you today in the [facility]. It is a privilege to assist your in your medical care. Please remember to schedule a follow up appointment with me (or one of our Advance Practice Providers) either in person at the [facility] or virtually that fits your schedule. The appointment telephone number for the Sleep Disorder Center is [phone]. The Dat[employer]le system may also be used to schedule your next appointment. Please follow up with all of your other medical specialists and primary care provider on a regular basis. If you have any further questions regarding the diagnosis or recommendations, please do not hesitate to send me a Datacastle message or call my collaborating nurse Ambrose at [phone] Extension #5. I spent a total time of over 15 minutes on the date of the service on this case. This included preparing to see the patient by reviewing the medical record prior to examining the patient, interviewing the patient face to face in the clinic or virtually via audio and video secure [facility] technology, ordering appropriate medications/tests/procedures, completing clinical documentation of the visit, counseling and educating the patient/family/caregiver, communicating with other health care providers as well as general care coordination. Jaden Man DO, CBSM, ABSM Staff Physician [facility] [address] [place] [address] [address] [place], [place] [address] Interval history : Here for follow up for follow up management of JOSÉ MIGUEL and RLS. SLEEP APNEA Sleep apnea type : JOSÉ MIGUEL, Most Recent Apnea-Hypopnea Index (AHI): 36.6 Treatment : PAP therapy PAP History: Uses AutoPAP for 7 hours per night, 7 nights per week. Current PAP settin-15 cm H2O. Difficulties with AutoPAP: None Reviewed objective PAP compliance data: Mask type: nasal pillow interface Mask issues: none Uses chin strap: No Uses ramp function: No Uses humidity: yes There is a perceived benefit by the patient: sleep is good Observers report abolition of snoring with AutoPAP use. ------- RLS: Treatment: Methadone 5 mg - typically takes around 7:00 pm Status:Worse since last visit. He is having symptoms 4/7 nights. It lasts approx 60-90 minutes Symptoms start: 8:00 pm Symptom free during the day, unless he is trying to nap, which is rare. Prior treatment: Lyrica, Gabapentin, Pramipexole, Requip Last office visit: 10/12/21 Last staff visit: 03/14/22 Has not taken iron in last 5 years. Ferritin Date Value Ref Range Status 07/06/2021 308.0 30.3 - 565.7 ng/mL Final 01/02/2021 378.0 30.3 - 565.7 ng/mL Final 08/02/2019 280.0 30.3 - 565.7 ng/mL Final Transferrin Saturation Date Value Ref Range Status 07/06/2021 37 15 - 57 % Final 01/02/2021 44 15 - 57 % Final 08/02/2019 23 15 - 57 % Final Hemoglobin Date Value Ref Range Status 07/30/2022 15.4 13.0 - 17.0 g/dL Final 06/15/2022 15.3 13.0 - 17.0 g/dL Final SLEEP HYGIENE QUESTIONS: Bedtime : 9-10 pm Wake up Time : 6-6:30 am Time it takes to fall sleep : usually falls asleep quickly unless Number of times patient wakes up per night : every hour Reason (s) why patient wakes up during the night : feels restless Estimated total sleep time ( in a 24 hour period of time) : 5-6 Naps : No 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 Sleep Questions 07/29/2022 Reason for visit: Sleep apnea, Restless Legs Syndrome Average hours slept in 24 hours: - Average hours of CPAP per night: 6 Percent of nights CPAP used at least 4 hours: 100 Accidents or near accidents due to drowsy drivin Sullivan Sleepiness Scale 03/11/2022 06/13/2022 07/29/2022 Score 1 (No daytime sleepiness) 2 (No daytime sleepiness) 2 (No daytime sleepiness) PROMIS CAT Sleep Disturbance 03/11/2022 06/13/2022 07/29/2022 PROMIS Sleep Disturbance T-Score 47 (within normal limits) 46 (within normal limits) 63 (moderate) Insomnia Severity Index 02/26/2020 12/09/2021 07/29/2022 Score 26 19 14 Restless Leg Syndrome 03/11/2022 06/13/2022 07/29/2022 Score 15 20 24 PHQ-9 06/13/2022 07/23/2022 07/30/2022 Score 18 8 16 PROMIS Global Health - (T-Scores - the mean of general population = 50. Five points is a clinically meaningful difference.) 03/11/2022 06/13/2022 06/13/2022 Physical T-Score 50.8 54.1 54.1 Mental T-Score 53.3 33.8 33.8 PMH, PSH, SH: reviewed SLEEP RELATED ROS Review of Systems Constitutional: Positive for fatigue. Respiratory: Negative. Cardiovascular: Negative. Musculoskeletal: Positive for uncomfortable leg sensations. Neurological: Positive for headaches. ALLERGIES No Known Allergies CURRENT MEDICATIONS: sertraline (ZOLOFT) 50 mg tablet Take 1 tablet by mouth once daily. testosterone cypionate (DEPO-TESTOSTERONE) 200 mg/mL injection Inject 1 mL intramuscularly every 2 weeks for 90 days. methadone (DOLOPHINE) 5 mg tablet 1 tablet po q bedtime for treatment refractory restless legs syndrome Do not start before July 11, 2022. lisinopril-hydroCHLOROthiazide (PRINZIDE,ZESTORETIC) 20-12.5 mg per tablet Take 2 tablets by mouth once daily. methadone (DOLOPHINE) 5 mg tablet 1 tablet at night for refractory RLS pain Do not start before May 13, 2022. atorvastatin (LIPITOR) 20 mg tablet Take 1 tablet by mouth daily at bedtime. For cholesterol. Tadalafil (CIALIS) 5 mg tablet Take 1 tablet by mouth once daily. CPAP Provide lifetime supplies for AutoPAP 8-15 cm H20 including nasal pillow mask, heated tubing, humidity, filters and fax download report to assess residual AHI to [phone]. Dx: G47.33 CPAP Increase autopap pressure to 8-15 cm of water with humidification. Mask (per patient preference) optional chin strap (if indicated) , filters, tubing, humidifier and lifetime supplies. Syringe with Needle, Disp, 3 mL 25 x 1 1/2 1 Each every 2 weeks. Prior RLS Medications (last 20 years) Some values may be hidden. Unless noted otherwise, only the newest values recorded on each date are displayed. RLS Medications meperidine (PF) 12.5 mg injection (DEMEROL) Dose: 12.5 mg ONCE May Repeat 12.5 mg in 10 minutes X1 for Continued Shivering Starting date: 08/21/2021 Ending date: 08/21/2021 (Discontinued) methadone (DOLOPHINE) 5 mg tablet Dose: 2.5 mg DAILY IN THE LATE AFTERNOON For RLS-pain Starting date: 03/20/2021 Ending date: 03/26/2021 (Discontinued) methadone (DOLOPHINE) 5 mg tablet Dose: 5 mg DAILY IN THE LATE AFTERNOON For RLS-pain Starting date: 03/26/2021 Ending date: 04/18/2021 (Discontinued) methadone (DOLOPHINE) 5 mg tablet Dose: 5 mg DAILY IN THE LATE AFTERNOON For RLS-pain Starting date: 04/25/2021 Ending date: 05/16/2021 (Discontinued) methadone (DOLOPHINE) 5 mg tablet Dose: 5 mg DAILY IN THE LATE AFTERNOON For RLS-pain Starting date: 07/24/2021 Ending date: 07/06/2021 (Discontinued) methadone (DOLOPHINE) 5 mg tablet Dose: 5 mg DAILY IN THE LATE AFTERNOON For RLS-pain Starting date: 06/24/2021 Ending date: 07/06/2021 (Discontinued) methadone (DOLOPHINE) 5 mg tablet Dose: 5 mg DAILY IN THE LATE AFTERNOON For RLS-pain Starting date: 05/25/2021 Ending date: 07/06/2021 (Discontinued) methadone (DOLOPHINE) 5 mg tablet Dose: 1 tablet po q bedtime for treatment refractory restless legs syndrome Starting date: 12/13/2021 Ending date: 01/11/2022 (Discontinued) methadone (DOLOPHINE) 5 mg tablet Dose: 1 tablet po q bedtime for treatment refractory restless legs syndrome Do not start before January 13, 2022. Starting date: 01/13/2022 Ending date: 02/11/2022 (Discontinued) methadone (DOLOPHINE) 5 mg tablet Dose: 1 tablet po q bedtime for treatment refractory restless legs syndrome Starting date: 02/11/2022 Ending date: 03/14/2022 (Discontinued) methadone (DOLOPHINE) 5 mg tablet Dose: 1 tablet po q bedtime for treatment refractory restless legs syndrome Starting date: 03/14/2022 Ending date: 04/08/2022 (Discontinued) methadone (DOLOPHINE) 5 mg tablet Dose: 1 tablet po q bedtime for treatment refractory restless legs syndrome Do not start before April 13, 2022. Starting date: 04/13/2022 Ending date: 06/09/2022 (Discontinued) methadone (DOLOPHINE) 5 mg tablet Dose: 1 tablet at night for refractory RLS pain Do not start before May 13, 2022. Starting date: 05/13/2022 Ending date: 07/08/2022 methadone (DOLOPHINE) 5 mg tablet Dose: 1 tablet po q bedtime for treatment refractory restless legs syndrome Starting date: 06/11/2022 Ending date: 06/20/2022 (Discontinued) methadone (DOLOPHINE) 5 mg tablet Dose: 1 tablet po q bedtime for treatment refractory restless legs syndrome Do not start before July 11, 2022. Starting date: 07/11/2022 Ending date: 08/02/2022 methadone 5 mg/5 mL solution Dose: 4 mg EVERY EVENING For RLS-pain Starting date: 07/06/2021 Ending date: 07/31/2021 (Discontinued) methadone 5 mg/5 mL solution Dose: 4 mg EVERY EVENING For RLS-pain Starting date: 07/31/2021 Ending date: 09/03/2021 (Discontinued) methadone 5 mg/5 mL solution Dose: 4 mg EVERY EVENING For RLS-pain Starting date: 09/03/2021 Ending date: 09/26/2021 (Discontinued) methadone 5 mg/5 mL solution Dose: 4 mg EVERY EVENING For RLS-pain Starting date: 10/06/2021 Ending date: 10/05/2021 (Discontinued) methadone 5 mg/5 mL solution Dose: 4 mg EVERY EVENING For RLS-pain Starting date: 11/05/2021 Ending date: 12/13/2021 (Discontinued) methadone 5 mg/5 mL solution Dose: 4 mg EVERY EVENING For RLS-pain Starting date: 10/05/2021 Ending date: 12/13/2021 (Discontinued) oxyCODONE IR 5 mg tab(s) (ROXICODONE) Dose: 5 mg NEEDED Starting date: 08/21/2021 Ending date: 08/21/2021 (Discontinued) oxyCODONE IR (ROXICODONE) 5 mg immediate release tablet Dose: 5 mg EVERY 6 HOURS NEEDED for more severe postop pain after surgery. Starting date: 08/20/2021 Ending date: 08/27/2021 Pramipexole (MIRAPEX ER) 0.375 mg Tb24 Dose: 1.125 mg EVERY EVENING And decrease as recommended by physician Starting date: 12/26/2020 Ending date: 03/23/2021 (Discontinued) Pramipexole (MIRAPEX ER) 1.5 mg Tb24 Dose: 1.5 mg AT BEDTIME Starting date: Ending date: 08/02/2019 (Discontinued) Pramipexole (MIRAPEX ER) 1.5 mg Tb24 Dose: 1.5 mg EVERY EVENING Starting date: 12/26/2020 Ending date: 03/23/2021 (Discontinued) pramipexole (MIRAPEX) 0.5 mg tablet Dose: 0.5 mg 2 TIMES DAILY (Patient taking differently: 0.5 mg BID as of 09/21/2019 8:20 AM) Starting date: 08/19/2019 Ending date: 11/16/2019 (Discontinued) rOPINIRole (REQUIP) 0.5 mg tablet Dose: 0.5 mg AT BEDTIME Starting date: 08/02/2019 Ending date: 08/04/2019 (Discontinued) rOPINIRole (REQUIP) 1 mg tablet Dose: 1 mg AT BEDTIME Starting date: 08/04/2019 Ending date: 08/19/2019 (Discontinued) rotigotine (NEUPRO) 1 mg/24 hour patch Dose: 1 Patch DAILY Starting date: 11/16/2019 Ending date: 11/29/2019 (Discontinued) rotigotine (NEUPRO) 2 mg/24 hour patch Dose: 2 mg DAILY Starting date: 11/29/2019 Ending date: 12/09/2019 (Discontinued) rotigotine (NEUPRO) 3 mg/24 hour patch Dose: 1 Patch DAILY Starting date: 12/09/2019 Ending date: 12/09/2019 (Discontinued) rotigotine (NEUPRO) 3 mg/24 hour patch Dose: 1 Patch DAILY Starting date: 12/09/2019 Ending date: 12/09/2019 (Discontinued) rotigotine (NEUPRO) 3 mg/24 hour patch Dose: 1 Patch DAILY Starting date: 12/09/2019 Ending date: 12/28/2019 (Discontinued) rotigotine (NEUPRO) 3 mg/24 hour patch Dose: 1 Patch DAILY Starting date: 12/28/2019 Ending date: 12/26/2020 (Discontinued) Medication marked as long-term PHYSICAL EXAMINATION: Neurological exam: Patient approapriately answering questions. Language function normal. Memory normal. Speech fluent. IMPRESSION: José Miguel on cpap (primary encounter diagnosis) Restless legs syndrome (rls) Chronic use of opiate for therapeutic purpose Idiopathic small fiber peripheral neuropathy Benign prostatic hyperplasia, unspecified whether lower urinary tract symptoms present Hypertriglyceridemia Iron deficiency anemia, unspecified iron deficiency anemia type Primary hypertension Obesity, class ii, bmi 35-39.9 Clinical Global Impression of Change ( CGI-C) Compared to the patient's condition at baseline, how much has the patient changed? Much improved This is a pleasant 51-year-old male who presents via virtual visit for his follow-up management of JOSÉ MIGUEL on PAP therapy and RLS. He is doing very well with PAP therapy, needs compliance, reports subjective benefit, and has excellent control with a residual AHI of 1.5 on his recent download. His treatment refractory severe RLS has been managed with methadone. He reports since last visit his symptoms have increased and have been bothersome on average approximately 4 nights a week. He currently takes 5 mg of methadone and about 7 PM and reports symptoms start about 8 PM. He denies aggravating factors. He denies side effects of medication. PLAN: JOSÉ MIGUEL - Continue Auto CPAP at 8-15cm H2O. - Remember to clean your mask and equipment regularly, as directed. - You should be eligible for new supplies approximately every 3-6 months, depending on your insurance coverage. Contact your Durable Medical Equipment (DME) company for new supplies as needed. RLS Discussed RLS symptom increase with Dr. Saldana. Will increase Methadone to 7.5 mg nighty for treatment of RLS for increase in symptoms. Rx x 3 months sent to pharmacy. Obtain annual utox prior to next appt. PDMP website checked and validated. All prescriptions have been APPROPRIATELY filled. No suspicious activity was identified. 08/02/2022 by JACQUELINE Reeves APRN.MARTA I spent a total of 30 minutes on the date of the service which included preparing to see the patient, [id number] patient care, completing clinical documentation, obtaining and/or reviewing separately obtained history, counseling and educating the patient/family/caregiver, ordering medications, tests, or procedures, communicating results to the patient/family/caregiver, and care coordination (not separately reported). documented in this encounter [facility] 07-30-2022 History of Present illness Narrative Chief Complaint Patient presents with: Follow Up: 6 month - patient reports using ibuprofen daily for generalized aches and pains 400 mg BID. Wants to discuss testosterone. HPI Nancy Enamorado is a 51 year old male who presents here today for Above Complaints.. Patient requesting to restart his testosterone supplement now that his H&H has returned to normal. States that without this medication he feels more fatigued and has little energy. Would like to restart injections which he was doing at home previously. Notes that over the last 6 months he has been feeling more down/depressed as well. No history of depression or anxiety. Has not been on medication. Not seeing counseling now. 07/23/2022 07/30/2022 [id number] Last Filed Value PHQ-9 Little interest or pleasure in doing things Several daysLittle interest or pleasure in doing things. Several days. Patient-Reported. Taken on 07/23/22 0959 More than half the days More than half the days Feeling down, depressed, or hopeless More than half the daysFeeling down, depressed, or hopeless. More than half the days. Patient-Reported. Taken on 07/23/22 0959 More than half the days More than half the days Trouble falling or staying asleep, or sleeping too much Several daysTrouble falling or staying asleep, or sleeping too much. Several days. Patient-Reported. Taken on 07/23/22958 Nearly every day Nearly every day Feeling tired or having little energy Several daysFeeling tired or having little energy. Several days. Patient-Reported. Taken on 07/23/22958 Nearly every day Nearly every day Poor appetite or overeating Not at allPoor appetite or overeating. Not at all. Patient-Reported. Taken on 07/23/22958 Not at all Not at all Feeling bad about yourself - or that you are a failure or have let yourself or your family down More than half the daysFeeling bad about yourself - or that you are a failure or have let yourself or your family down. More than half the days. Patient-Reported. Taken on 07/23/22958 Nearly every day Nearly every day Trouble concentrating on things, such as reading the newspaper or watching television Several daysTrouble concentrating on things, such as reading the newspaper or watching television. Several days. Patient-Reported. Taken on 07/23/22958 Nearly every day Nearly every day Moving or speaking so slowly that other people could have noticed. Or the opposite - being so fidgety or restless that you have been moving around a lot more than usual Not at allMoving or speaking so slowly that other people could have noticed. Or the opposite - being so fidgety or restless that you have been moving around a lot more than usual. Not at all. Patient-Reported. Taken on 07/23/22958 Not at all Not at all Thoughts that you would be better off , or of hurting yourself in some way Not at allThoughts that you would be better off , or of hurting yourself in some way. Not at all. Patient-Reported. Taken on 07/23/22958 Not at all Not at all If you checked off any problems, how difficult have these problems made it for you to do your work, take care of things at home, or get along with other people? Somewhat difficultIf you checked off any problems, how difficult have these problems made it for you to do your work, take care of things at home, or get along with other people?. Somewhat difficult. Patient-Reported. Taken on 07/23/22 0959 -- Somewhat difficultIf you checked off any problems, how difficult have these problems made it for you to do your work, take care of things at home, or get along with other people?. Somewhat difficult. Patient-Reported. Last Filed Value PHQ-9 score 8 16 16 PHQ-9 Score 8 16 16 PHQ-2 score 3 4 4 PHQ-2 Score 3 4 4 Past medical history, appointments, medications, allergies reviewed. Previous Medical History PAST MEDICAL HISTORY Diagnosis Date Achilles tendinosis of left lower extremity s/p repair BPH (benign prostatic hyperplasia) Erectile dysfunction Heel spur, left Hypertension Hypertriglyceridemia Hypogonadism in male Idiopathic neuropathy JOSÉ MIGUEL (obstructive sleep apnea) 08/2020 Prediabetes RLS (restless legs syndrome) Dr Man Thrombosed hemorrhoids 11/2021 Previous Surgical History PAST SURGICAL HISTORY Procedure Laterality Date APPENDECTOMY ARTHROSCOPY KNEE DIAGNOSTIC W/WO SYNOVIAL BX SPX Left Arthroscopy, knee CHOLECYSTECTOMY HX HERNIA REPAIR HX Bilateral inguinal hernia, congenital NEUROPLASTY &/TRANSPOS MEDIAN NRV CARPAL TUNNE Carpal tunnel decomp bilateral PAST SURGICAL HISTORY OF 07/30/2019 repair bone spur achilles left foot PAST SURGICAL HISTORY OF Left 08/21/2021 achilles tendon repair PAST SURGICAL HISTORY OF 12/05/2021 hemorrhoidectomy SKIN BIOPSY HX TONSILLECTOMY HX TONSILLECTOMY PRIMARY/SECONDARY <AGE 12 Tonsillectomy Family History FAMILY HISTORY Problem Relation Age of Onset COPD Mother Cancer Mother lung Heart disease Father Cancer Father lung, liver, kidney, colon Depression Father Anxiety disorder Father other (cancer) Father Psychiatry Brother No Known Problems Brother Heart disease Maternal Grandmother Heart disease Maternal Grandfather Heart disease Paternal Grandmother Heart disease Paternal Grandfather Multiple Sclerosis Daughter other (apraxia) Son Patient Allergies ALLERGIES No Known Allergies Current Medications Current Outpatient Medications on File Prior to Visit Medication Sig methadone (DOLOPHINE) 5 mg tablet 1 tablet po q bedtime for treatment refractory restless legs syndrome Do not start before July 11, 2022. lisinopril-hydroCHLOROthiazide (PRINZIDE,ZESTORETIC) 20-12.5 mg per tablet Take 2 tablets by mouth once daily. atorvastatin (LIPITOR) 20 mg tablet Take 1 tablet by mouth daily at bedtime. For cholesterol. Tadalafil (CIALIS) 5 mg tablet Take 1 tablet by mouth once daily. methadone (DOLOPHINE) 5 mg tablet 1 tablet at night for refractory RLS pain Do not start before May 13, 2022. testosterone cypionate (DEPO-TESTOSTERONE) 200 mg/mL injection Inject 2 mL intramuscularly every 2 weeks for 90 days. CPAP Provide lifetime supplies for AutoPAP 8-15 cm H20 including nasal pillow mask, heated tubing, humidity, filters and fax download report to assess residual AHI to [phone]. Dx: G47.33 CPAP Increase autopap pressure to 8-15 cm of water with humidification. Mask (per patient preference) optional chin strap (if indicated) , filters, tubing, humidifier and lifetime supplies. Syringe with Needle, Disp, 3 mL 25 x 1 1/2 1 Each every 2 weeks. No current facility-administered medications on file prior to visit. Social History Social History Tobacco Use Smoking status: Never Smokeless tobacco: Never Vaping Use Vaping Use: Never used Substance Use Topics Alcohol use: Yes Alcohol/week: 2.0 standard drinks Types: 2 Cans of beer per week Drug use: Never Review of Symptoms REVIEW OF SYSTEMS GENERAL: No weight loss, malaise or fevers RESPIRATORY: Negative for cough, hemoptysis, wheezing, COPD, dyspnea or shortness of breath CARDIOVASCULAR: Negative for chest pain, leg swelling, hypertension, CHF or palpitations GI: No nausea, vomiting, or diarrhea SKIN: Negative for lesions, rash, and itching EXAM: BP 122/78 Pulse (!) 57 Resp 16 Wt 123.1 kg (271 lb 6.4 oz) SpO2 95% BMI 37.58 kg/m General Appearance: Well appearing, alert, in no acute distress, well-hydrated, well nourished.. Skin: Skin color, texture, turgor normal, no suspicious rashes or lesions. Lungs: Lungs clear to auscultation. No wheezing, rhonchi, rales.. Heart: RRR without murmur, gallop, or rubs. No ectopy. Health Maintenance List COLORECTAL CANCER SCREENING due on 02/17/2021 INFLUENZA(1) due on 02/14/2022 DEPRESSION ASSESSMENT Never done HEPATITIS B(1 of 3 - 3-dose series) due on 02/02/2023 COVID-19 VACCINE(3 - Booster for Moderna series) due on 02/02/2023 BP CONTROLLED (<130/80) due on 02/02/2023 ANNUAL PCP TEAM CHRONIC DISEASE VISIT due on 07/30/2023 DIABETES SCREEN due on 01/26/2025 LIPID SCREEN due on 01/26/2027 DTAP,TDAP,TD(2 - Td or Tdap) due on 03/10/2030 HEPATITIS C SCREENING Completed HIV SCREENING Completed SHINGRIX VACCINE Completed Data reviewed Component Latest Ref Rng & Units 01/26/2022 03/02/2022 03/30/2022 06/15/2022 WBC 3.70 - 11.00 k/uL 8.53 9.47 9.26 7.51 RBC 4.20 - 6.00 m/uL 5.82 6.14 (H) 5.71 4.88 Hemoglobin 13.0 - 17.0 g/dL 17.6 (H) 18.8 (H) 17.5 (H) 15.3 Hematocrit 39.0 - 51.0 % 52.0 (H) 54.7 (H) 50.3 44.4 MCV 80.0 - 100.0 fL 89.3 89.1 88.1 91.0 MCH 26.0 - 34.0 pg 30.2 30.6 30.6 31.4 MCHC 30.5 - 36.0 g/dL 33.8 34.4 34.8 34.5 RDW-CV 11.5 - 15.0 % 12.7 12.5 12.4 12.6 Platelet Count 150 - 400 k/uL 273 281 254 236 MPV 9.0 - 12.7 fL 9.9 9.6 9.4 9.9 Neut% % 65.2 60.3 57.8 51.0 Abs Neut (ANC) 1.45 - 7.50 k/uL 5.57 5.71 5.34 3.83 Lymph% % 25.6 29.8 32.9 37.8 Abs Lymph 1.00 - 4.00 k/uL 2.18 2.82 3.05 2.84 Moca% % 6.6 7.5 6.7 8.3 Abs Moca <0.87 k/uL 0.56 0.71 0.62 0.62 Eosin% % 1.6 1.6 1.5 2.0 Abs Eosin <0.46 k/uL 0.14 0.15 0.14 0.15 Baso% % 0.5 0.4 0.5 0.4 Abs Baso <0.11 k/uL 0.04 0.04 0.05 0.03 Immature Gran % % 0.5 0.4 0.6 0.5 IMMATURE GRANS (ABS) <0.10 k/uL 0.04 0.04 0.06 0.04 NRBC /100 WBC 0.0 0.0 0.0 0.0 Absolute nRBC <0.01 k/uL <0.01 <0.01 <0.01 <0.01 DTYPE Auto Auto Auto Auto Protein, Total 6.3 - 8.0 g/dL 6.8 Albumin 3.9 - 4.9 g/dL 4.3 Calcium 8.5 - 10.2 mg/dL 9.1 Bilirubin, Total 0.2 - 1.3 mg/dL 0.7 Alkaline Phosphatase 38 - 113 U/L 73 AST 14 - 40 U/L 20 ALT 10 - 54 U/L 16 Glucose 74 - 99 mg/dL 104 (H) BUN 9 - 24 mg/dL 12 Creatinine 0.73 - 1.22 mg/dL 1.07 Sodium 136 - 144 mmol/L 135 (L) Potassium 3.7 - 5.1 mmol/L 4.1 Chloride 97 - 105 mmol/L 99 CO2 22 - 30 mmol/L 27 Anion Gap 9 - 18 mmol/L 9 eGFR >=60 mL/min/1.73m 83 Cholesterol, Total <200 mg/dL 117 Triglyceride <150 mg/dL 112 HDL Cholesterol >39 mg/dL 28 (L) Non HDL Cholesterol <130 mg/dL 89 Fasting Time hrs 12 VLDL Cholesterol <30 mg/dL 22 TC:HDL Ratio <5.10 4.18 LDL Cholesterol <100 mg/dL 67 LDL:HDL Ratio <2.54 2.39 Hemoglobin A1C 4.3 - 5.6 % 5.7 (H) Estimated Average Glucose mg/dL 117 Testosterone Free 4.06 - 15.6 ng/dL 86.6 (H) 6.60 Testosterone 240 - 950 ng/dL 1810 (H) 194 (L) PSA Screening <2.60 ng/mL 2.52 ASSESSMENT/PLAN: 1. Hypogonadism in male - ICD9: 257.2, ICD10: E29.1 (primary diagnosis) Will restart testosterone injections at 1/2 his previous dosage. Obtain baseline labs today. F/u in 3 months or PRN. - TESTOSTERONE CYPIONATE 200 MG/ML INTRAMUSCULAR OIL - CBC + DIFF - TESTOSTERONE, FREE AND TOTAL - PSA/PROSTSPECAG SCRN 2. Primary hypertension - ICD9: 401.9, ICD10: I10 - good control - Continue current medication(s) - Encouraged dietary sodium restriction/DASH diet - Recommended regular aerobic exercise. - Reviewed risks of HTN and principles of treatment - Goal of BP <140/90 3. Current moderate episode of major depressive disorder without prior episode (HCC) - ICD9: 296.22, ICD10: F32.1 New diagnosis. Start SSRI and refer to counseling. Check labs as ordered. F/u in 1 month. - SERTRALINE 50 MG TABLET - CONSULT TO [facility] - VITAMIN D 25 HYDROXY - TSH BLD 4. Prediabetes - ICD9: 790.29, ICD10: R73.03 Recheck labs and will discuss further at f/u in 1 month. - COMP METABOLIC PANEL - HGB A1C Chayo Hickey MD documented in this encounter [facility] 07-22-2022 Miscellaneous Notes Images from the original note were not included. documented in this encounter [facility] 06-18-2022 Miscellaneous Notes Call placed to patient and provider message reviewed. Patient verbalizes understanding and will discuss with Dr. Hickey at appointment on August 09, 2022. Alexia Cao RN It wouldn't be recommended that it be restarted. He can discuss with Dr. Hickey at his appointment in July. Genesis Spencer APRN.MARTA Patient returned call and given provider's message below with verbalized understanding. Patient asking if provider is going to restart his testosterone now? VM left for patient to call PCP office for message. Bárbara Lee RN Please call patient and let him know his hemoglobin is back in normal range. Genesis Spencer APRN.MARTA documented in this encounter [facility] 06-11-2022 Miscellaneous Notes PDMP website checked and validated. All prescriptions have been APPROPRIATELY filled. No suspicious activity was identified. 06/11/2022 by Ganesh Ojeda APRN.MARTA Swapna 03/14/22 BENITA Man Fov 06/20/22 BENITA Ojeda (10/12/21 in person Donovan) IMPRESSION: I: Deferred II: Deferred III: Restless legs syndrome (rls) (primary encounter diagnosis) Chronic use of opiate for therapeutic purpose José Miguel on cpap Iron deficiency anemia, unspecified iron deficiency anemia type Prediabetes Primary hypertension Hypogonadism in male Idiopathic small fiber peripheral neuropathy Hypertriglyceridemia Benign prostatic hyperplasia, unspecified whether lower urinary tract symptoms present IV: 3 medical issues V: 95 now 74 past year PLAN: The patient will continue to use nasal PAP q hs. He will continue to use the methadone q hs as it is the only medication that has treated his treatment resistant severe RLS satisfactory. He is off of Lyrica. I would recommend that the patient avoid alcoholic beverages and any medication or substance that could theoretically be a respiratory depressant as this could exacerbate sleep disordered breathing. I would continue the methadone 5mg po q hs as it is the only medication that has treated his treatment resistant severe RLS satisfactorily. Buprenorphine and Methadone are prescribed for Treatment Refractory Severe Restless Legs Syndrome and RLS-Pain and are one of the preferred opiate type medications given their relative safety profile compared to other opiates on the market, reduced controlled substance scheduling, decreased abuse potential and euphoria, long-acting duration, and anti-NMDA properties that can theoretically additionally benefit Severe Treatment Refractory Restless Legs Syndrome. I counseled the patient on the numerous potential side effects of this opiate type medication including the potential for dependence/addiction/constipation/ sedation/impairment, etc. The patient understands and accepts the risks and benefits of using this type of medication to treat their refractory severe disorder. We will periodically check the [place] Automated Rx Reporting System (OARRS) in order to monitor for suspected abuse or diversion of controlled substances. He will see our STATISTICAL PROGRAMMER ANALYST in 90 days and follow up with his PCP and other specialists on a regular basis. I will be happy to see this gentleman yearly for the controlled Methadone follow ups. It was a pleasure seeing you today in the [facility]. It is a privilege to assist your in your medical care. Please remember to schedule a follow up appointment with me (or one of our Advance Practice Providers) either in person at the [facility] [place] [facility] or virtually that fits your schedule. The appointment telephone number for the Sleep Disorder Center is [phone]. The [employer] system may also be used to schedule your next appointment. Please follow up with all of your other medical specialists and primary care provider on a regular basis. If you have any further questions regarding the diagnosis or recommendations, please do not hesitate to send me a Datacastle message or call my collaborating nurse Ambrose at [phone] Extension #5. I spent a total time of over 15 minutes on the date of the service on this case. This included preparing to see the patient by reviewing the medical record prior to examining the patient, interviewing the patient face to face in the clinic or virtually via audio and video secure [facility] technology, ordering appropriate medications/tests/procedures, completing clinical documentation of the visit, counseling and educating the patient/family/caregiver, communicating with other health care providers as well as general care coordination. documented in this encounter [facility] 05-13-2022 Miscellaneous Notes Patient phones requesting refills as follows: Requested Prescriptions Pending Prescriptions Disp Refills lisinopril-hydroCHLOROthiazide (PRINZIDE,ZESTORETIC) 20-12.5 mg per tablet 180 tablet 1 Sig: Take 2 tablets by mouth once daily. SWAPNA 02/02/22 NOV 08/09/22 Please review and advise. Xiomara Lindsay LPN documented in this encounter [facility] 04-09-2022 Miscellaneous Notes PDMP website checked and validated. All prescriptions have been APPROPRIATELY filled. No suspicious activity was identified. 04/09/2022 by Renetta Rees APRN.STOGY ROLLER RF for March and April placed Renetta Rees APRN.STOGY ROLLER Swapna 03/14/22 VV Fov 06/20/22 VV 10/12/21 in person Donovan IMPRESSION: I: Deferred II: Deferred III: Restless legs syndrome (rls) (primary encounter diagnosis) Chronic use of opiate for therapeutic purpose José Miguel on cpap Iron deficiency anemia, unspecified iron deficiency anemia type Prediabetes Primary hypertension Hypogonadism in male Idiopathic small fiber peripheral neuropathy Hypertriglyceridemia Benign prostatic hyperplasia, unspecified whether lower urinary tract symptoms present IV: 3 medical issues V: 95 now 74 past year PLAN: The patient will continue to use nasal PAP q hs. He will continue to use the methadone q hs as it is the only medication that has treated his treatment resistant severe RLS satisfactory. He is off of Lyrica. I would recommend that the patient avoid alcoholic beverages and any medication or substance that could theoretically be a respiratory depressant as this could exacerbate sleep disordered breathing. I would continue the methadone 5mg po q hs as it is the only medication that has treated his treatment resistant severe RLS satisfactorily. Buprenorphine and Methadone are prescribed for Treatment Refractory Severe Restless Legs Syndrome and RLS-Pain and are one of the preferred opiate type medications given their relative safety profile compared to other opiates on the market, reduced controlled substance scheduling, decreased abuse potential and euphoria, long-acting duration, and anti-NMDA properties that can theoretically additionally benefit Severe Treatment Refractory Restless Legs Syndrome. I counseled the patient on the numerous potential side effects of this opiate type medication including the potential for dependence/addiction/constipation/ sedation/impairment, etc. The patient understands and accepts the risks and benefits of using this type of medication to treat their refractory severe disorder. We will periodically check the [place] Automated Rx Reporting System (OARRS) in order to monitor for suspected abuse or diversion of controlled substances. He will see our STATISTICAL PROGRAMMER ANALYST in 90 days and follow up with his PCP and other specialists on a regular basis. I will be happy to see this gentleman yearly for the controlled Methadone follow ups. It was a pleasure seeing you today in the [facility]. It is a privilege to assist your in your medical care. Please remember to schedule a follow up appointment with me (or one of our Advance Practice Providers) either in person at the [facility] [place] [facility] or virtually that fits your schedule. The appointment telephone number for the Sleep Disorder Center is [phone]. The [employer] system may also be used to schedule your next appointment. Please follow up with all of your other medical specialists and primary care provider on a regular basis. If you have any further questions regarding the diagnosis or recommendations, please do not hesitate to send me a Dat[employer]le message or call my collaborating nurse Ambrose at [phone] Extension #5. I spent a total time of over 15 minutes on the date of the service on this case. This included preparing to see the patient by reviewing the medical record prior to examining the patient, interviewing the patient face to face in the clinic or virtually via audio and video secure [facility] technology, ordering appropriate medications/tests/procedures, completing clinical documentation of the visit, counseling and educating the patient/family/caregiver, communicating with other health care providers as well as general care coordination. Jaden Man, , CBSM, ABSM documented in this encounter [facility] 04-04-2022 Miscellaneous Notes Images from the original note were not included. APPROVED. Epic PA was not accepted, PA submitted on AntVoice. Awaiting response. GOFF- [id number] Halima Briones LPN New PA submitted via [employer] (unsure if this will be approved as I am unable to attach labs or if I will need to submit a new paper form with labs attached). Halima Briones LPN Testosterone results in. Marilee English Ma Hannah from Client Services lab calling [place] said Testosterone should get results sometime next week. Reference number for this is [id number] if any further questions. PA denied due to labs not being submitted with forms. Prior Auth department aware lab is still pending so will need to re-submit new case. Lab states still in process since 01/26. Called Lab client services and spoke to hannah who has to call [place] to see how much longer till finalized. Hannah advised will call back and let office know. Merna Meraz Ma Forms received for PA completed and faxed Merna Meraz Ma Electronic PA submitted Merna Meraz Ma Pt sends mychart message stating that [facility] requires PA on Testosterone. Marilee English Ma documented in this encounter [facility] 04-01-2022 Miscellaneous Notes Patient telephoned and made aware. Voices understanding. Patient questioning if he can be put back on his testosterone medication. Angela Cespedes LPN Please call patient and let him know his hemoglobin has improved but still mildly elevated. Recheck in 2 months. Genesis Spencer APRN.MARTA documented in this encounter [facility] 03-14-2022 Nurse Note Spoke with patient regarding upcoming virtual visit with provider. The following information was provided. Reason for visit. medication refill Patient questionnaire completed. yes E-check in completed. yes Blood pressure: 118/72 mmHg on Height: 6'0 Weight: 270 lbs (self-reported). Allergies reviewed.Yes Insurance verified.Yes Medications have been reviewed/reconciled, and pharmacy has been verified.Yes Is the patient using PAP therapy (CPAP/BiPAP)? Yes [facility] - ([place]-P; F: ), ([place]-P: F: [phone]), ([place]-P: F: ) Name of PAP machine. ResMed PAP download status - downloaded and pasted into progress note Is patient transferring care from another Sleep Center provider? No: Are there any external records from a previous sleep provider that need to be provided prior to visit? For new patients, this includes any sleep testing records and a recent chart note from outside provider managing Sleep Disorder. No External medical records have been uploaded to patient's chart. no - patient was advised this must be completed prior to the visit Informed patient that any data from health apps (Sleep health apps - FitBit, Clerts!, Apple, Educerus, etc.) can be uploaded to [employer] by attaching the image; and that the image would be available in scanned documents section of [employer]. [place] SECURITY SYSTEMS INTEGRATOR documented in this encounter [facility] 03-14-2022 History of Present illness Narrative Images from the original note were not included. [facility] Follow up/ Established patient visit Date of last visit : 10/12/2021 Note: This medical visit was completed virtually via secure audio and video technology provided by the [facility]. Consent related to this virtual visit being carried out was provided via [employer] as well as verbally. My findings and recommendations will be transmitted electronically via shared medical records to the consulting provider. The patient returns today for a scheduled follow up visit in the [facility]. All pertinent information in the medical record for the interval between the last visit in the Sleep Disorders Center and today have been reviewed. Pt was last seen on 12-13-21 for TR RLS, Fe Deficiency Anema and JOSÉ MIGUEL on PAP. His PAP use was very good. His methadone 5mg po q hs for the TR RLS was working very well and we tapered off his Lyrica at that visit. No issues with being off of Lyrica. Today he states he has a couple episodes per month which is tolerable. No new meds or diagnosis since I saw him last. I reviewed the most recent download from his Sverve device that is set at 8-15cm. His avg pressure is 9cm. He continues to use PAP just under 7 hours a night every day of the month (but one). His AHI is 1.4 on 02-26-22 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 Sleep Questions 03/11/2022 Reason for visit: Sleep apnea, Restless Legs Syndrome Average hours slept in 24 hours: - Average hours of CPAP per night: 6 Percent of nights CPAP used at least 4 hours: 100 Accidents or near accidents due to drowsy drivin [place] Sleepiness Scale 10/08/2021 12/09/2021 03/11/2022 Score 4 (No daytime sleepiness) 5 (No daytime sleepiness) 1 (No daytime sleepiness) PROMIS CAT Sleep Disturbance 10/01/2021 12/09/2021 03/11/2022 PROMIS Sleep Disturbance T-Score 54 (within normal limits) 57 (mild) 47 (within normal limits) Insomnia Severity Index 08/25/2019 02/26/2020 12/09/2021 Score 28 26 19 Restless Leg Syndrome 10/01/2021 12/09/2021 03/11/2022 Score 20 25 15 PHQ-9 10/01/2021 12/09/2021 03/11/2022 Score 4 8 6 PROMIS Global Health - (T-Scores - the mean of general population = 50. Five points is a clinically meaningful difference.) 08/08/2021 11/28/2021 03/11/2022 Physical T-Score 42.3 44.9 50.8 Mental T-Score 62.5 62.5 53.3 PMH, PSH, SH: no change SLEEP RELATED ROS Review of Systems ALLERGIES No Known Allergies CURRENT MEDICATIONS: methadone (DOLOPHINE) 5 mg tablet 1 tablet po q bedtime for treatment refractory restless legs syndrome testosterone cypionate (DEPO-TESTOSTERONE) 200 mg/mL injection Inject 2 mL intramuscularly every 2 weeks for 90 days. atorvastatin (LIPITOR) 20 mg tablet Take 1 tablet by mouth daily at bedtime. For cholesterol. Tadalafil (CIALIS) 5 mg tablet Take 1 tablet by mouth once daily. CPAP Provide lifetime supplies for AutoPAP 8-15 cm H20 including nasal pillow mask, heated tubing, humidity, filters and fax download report to assess residual AHI to [phone]. Dx: G47.33 CPAP Increase autopap pressure to 8-15 cm of water with humidification. Mask (per patient preference) optional chin strap (if indicated) , filters, tubing, humidifier and lifetime supplies. Syringe with Needle, Disp, 3 mL 25 x 1 1/2 1 Each every 2 weeks. lisinopril-hydroCHLOROthiazide (PRINZIDE,ZESTORETIC) 20-12.5 mg per tablet Take 2 tablets by mouth once daily. PHYSICAL EXAMINATION: Mental Status Examination: General: No acute distress Alertness: Alert Orientation: Oriented to person, place and time Eye contact: Good Mental attitude: Positive Historian: Reasonably good Constitutional: Pleasant and cooperative Speech Rate: Normal Speech Tone: Normal Speech Articulation: Normal Speech Spontaneity: Normal Bradyphrenia: None Loose Associations: None Thought Processes: Normal Tangential: No Circumstantial: No Abstraction: Normal Computation: Normal Suicidal thoughts: None Homicidal thoughts: None Hallucinations (Auditory, visual, gustatory): None Delusions: None EPS: None AIMS: 0 Violent ideations: None Paranoid thoughts: None Guarded: No Obsessions: None Phobias: None Judgement: Good Insight: Good Memory Recent: Good Memory Remote: Good Fund of Knowledge: Intact Mood: Euthymic Affect: Reactive Physical Examination: Note that no supplement oxygen is in use No acute distress; consistent with age; the patient appears slightly tired IMPRESSION: I: Deferred II: Deferred III: Restless legs syndrome (rls) (primary encounter diagnosis) Chronic use of opiate for therapeutic purpose José Miguel on cpap Iron deficiency anemia, unspecified iron deficiency anemia type Prediabetes Primary hypertension Hypogonadism in male Idiopathic small fiber peripheral neuropathy Hypertriglyceridemia Benign prostatic hyperplasia, unspecified whether lower urinary tract symptoms present IV: 3 medical issues V: 95 now 74 past year PLAN: The patient will continue to use nasal PAP q hs. He will continue to use the methadone q hs as it is the only medication that has treated his treatment resistant severe RLS satisfactory. He is off of Lyrica. I would recommend that the patient avoid alcoholic beverages and any medication or substance that could theoretically be a respiratory depressant as this could exacerbate sleep disordered breathing. I would continue the methadone 5mg po q hs as it is the only medication that has treated his treatment resistant severe RLS satisfactorily. Buprenorphine and Methadone are prescribed for Treatment Refractory Severe Restless Legs Syndrome and RLS-Pain and are one of the preferred opiate type medications given their relative safety profile compared to other opiates on the market, reduced controlled substance scheduling, decreased abuse potential and euphoria, long-acting duration, and anti-NMDA properties that can theoretically additionally benefit Severe Treatment Refractory Restless Legs Syndrome. I counseled the patient on the numerous potential side effects of this opiate type medication including the potential for dependence/addiction/constipation/ sedation/impairment, etc. The patient understands and accepts the risks and benefits of using this type of medication to treat their refractory severe disorder. We will periodically check the [place] Automated Rx Reporting System (OARRS) in order to monitor for suspected abuse or diversion of controlled substances. He will see our STATISTICAL PROGRAMMER ANALYST in 90 days and follow up with his PCP and other specialists on a regular basis. I will be happy to see this gentleman yearly for the controlled Methadone follow ups. It was a pleasure seeing you today in the [facility]. It is a privilege to assist your in your medical care. Please remember to schedule a follow up appointment with me (or one of our Advance Practice Providers) either in person at the [facility] S Building or virtually that fits your schedule. The appointment telephone number for the Sleep [facility] Center is [phone]. The Datacastle system may also be used to schedule your next appointment. Please follow up with all of your other medical specialists and primary care provider on a regular basis. If you have any further questions regarding the diagnosis or recommendations, please do not hesitate to send me a Datacastle message or call my collaborating nurse Ambrose at [phone] Extension #5. I spent a total time of over 15 minutes on the date of the service on this case. This included preparing to see the patient by reviewing the medical record prior to examining the patient, interviewing the patient face to face in the clinic or virtually via audio and video secure [facility] technology, ordering appropriate medications/tests/procedures, completing clinical documentation of the visit, counseling and educating the patient/family/caregiver, communicating with other health care providers as well as general care coordination. Jaden Man DO, [facility], ABSM Staff Physician [facility] [address] [place], [place] [address] documented in this encounter [facility] 03-13-2022 Miscellaneous Notes Pt called and is notified of providers results and instructions. Pt voices understanding. Jana Gonzalez, ANDREW Please call patient and let him know his testosterone level is low as expected being off his replacement. Check CBC on 03/19. Genesis Spencer APRN.MARTA documented in this encounter [facility] 03-05-2022 Miscellaneous Notes Patient notified of results, verbalizes understanding of instructions. Angela Cespedes LPN His hemoglobin is still elevated. His testosterone level is still pending. I will have him repeat the cbc with diff in two weeks and will see what the testosterone level is and may have to recheck this as well is elevated. Thanks, Genesis Spencer APRN.CNP Patient telephoned. States he had his last injection about 6 weeks ago. Apologizes, thought he was to come in for the CBC. Angela Cespedes LPN Please ask patient when his last testosterone injection was? He had his blood work drawn too early was supposed to be in 6 weeks. Genesis Spencer APRN.MARTA documented in this encounter [facility] 02-28-2022 Miscellaneous Notes Images from the original note were not included. documented in this encounter [facility] 02-11-2022 Miscellaneous Notes PDMP website checked and validated. All prescriptions have been APPROPRIATELY filled. No suspicious activity was identified. 02/11/2022 by Maya Bishop APRN.MARTA RF approved. Swapna 12/13/21 Donovan Sandoval (10/12/21 OV) Fov 03/14/22 [place] V V IMPRESSION/PLAN: G25.81 Restless legs syndrome (RLS) (primary encounter diagnosis) Z79.891 Chronic use of opiate for therapeutic purpose G47.33, Z99.89 JOSÉ MIGUEL on CPAP D50.9 Iron deficiency anemia, unspecified iron deficiency anemia type I would proceed with increasing the Methodone to 5mg tabs po q hs. (I will DC the Methodone liquid form for convenience). I would recommend that we taper off the Lyrica slowly as we do not feel that it has been helping in retrospect. I will send in the one month taper. He may proceed with his RTW on December 24. He will continue his use of CPAP nightly which is going extremely well. His data looks very good as stated above. We will follow up in 90 days. It was a pleasure seeing you today in our Sleep Medicine Center. Please remember to schedule a follow up appointment with me (or one of our Advance Practice Providers) either in person at the [facility] [place] [facility] or virtually that fits your schedule. The appointment telephone number for the [facility] Disorder Center is [phone]. Datacastle may also be used to schedule your next appointment. If you have any further questions regarding the diagnosis or recommendations, please do not hesitate to send me a Datacastle message or call my nurse Ambrose at [phone] Extension #5. I spent a total time of over 30 minutes on the date of the service on this case. This included preparing to see the patient by reviewing the medical record prior to examining the patient, interviewing the patient face to face in the clinic or virtually via audio and video secure [facility] technology, ordering appropriate medications/tests/procedures, completing clinical documentation of the visit, counseling and educating the patient/family/caregiver, communicating with other health care providers as well as general care coordination. Jaden Man, DO, CBSM, ABSM documented in this encounter [facility] 02-08-2022 Miscellaneous Notes Phoned patient and advised him of results and PCP's message and future lab orders. Patient's testosterone level is high >1,000. Recommend he stop his testosterone injections for 6 week and recheck levels and CBC. documented in this encounter [facility] 02-06-2022 Miscellaneous Notes Addressed via MC - pt was advised to schedule with an FIREARMS EXPERT. SLEEP PHONE Name of caller: Nancy Enamorado Relationship to patient : Self In-state or [id number] patient: In-State Was permission obtained from patient? Yes Patient identified by Name and Date of . ( Nancy Enamorado, 1970). Yes Reason for Call : Dr. Man told patient to call to set up an appt to see if he is eligible for the inspire device. Number to return call [phone] Okay to leave a message ? Yes Last office visit 12/13/[address] Donovan aaron Next office visit 03/14/[address] Donovan aaron documented in this encounter [facility] 02-05-2022 Miscellaneous Notes Phone encounter started and sent to PA nursing ukiah. Pt notified that we will start PA. Marilee English Ma documented in this encounter [facility] 02-02-2022 History of Present illness Narrative Chief Complaint Patient presents with: Physical: Concerned with increased joint pain. Only getting 8 cialis at each fill. [facility]. HPI Nancy Enamorado is a 51 year old male who presents here today for annual physical. Has been in good health. Notes that he has had some joint pain over the last 2 months without erythema or swelling. Has been going to the gym more. Taking ibuprofen which helps with pain. Notes that he had left achilles tendon repair by Dr. Horn back in August for achilles tendinosis. Has had complications with wound slowly healing. Much improved over the last month and has mostly closed up. JOSÉ MIGUEL: Wearing CPAP on a nightly basis. Patient states that he feels rested during the day and does not snore with mask on. HTN: Mr. Enamorado indicates that he is feeling well and denies any symptoms referable to elevated blood pressure. Specifically denies headache, chest pain, palpitations, dyspnea, and peripheral edema. Patient denies any side effects of his medication(s) and is compliant with their regimen. He does check BP's away from this office with average BP's in the 120's/70's range. Nancy works out regularly 3 times per week with cardio once per week and weight lifting. He watches his diet for sodium, low fat and low cholesterol most of the time. Last 3 Encounter BP Readings: Date: BP: 02/02/2022 118/72 12/07/2021 122/62 12/05/2021 145/80 Getting testosterone injections every 2 weeks which improves his energy. Has improved his ED and Libido. Cialis also helping with ED and BPH. Getting up once per night to urinate. Denies weak stream, straining to urinate, hematuria. Discussed elevated H&H. Methadone helping with RLS as prescribed by Dr Man. Up to date on colon cancer screening. Refusing COVID vaccine. Past medical history, appointments, medications, allergies reviewed. Previous Medical History PAST MEDICAL HISTORY Diagnosis Date BPH (benign prostatic hyperplasia) Erectile dysfunction Heel spur, left Hypertension Hypertriglyceridemia Hypogonadism in male Idiopathic neuropathy Dr Soliman JOSÉ MIGUEL (obstructive sleep apnea) 08/2020 Prediabetes RLS (restless legs syndrome) Thrombosed hemorrhoids 11/2021 Previous Surgical History PAST SURGICAL HISTORY Procedure Laterality Date APPENDECTOMY ARTHROSCOPY KNEE DIAGNOSTIC W/WO SYNOVIAL BX SPX Left Arthroscopy, knee CHOLECYSTECTOMY HX HERNIA REPAIR HX Bilateral inguinal hernia, congenital NEUROPLASTY &/TRANSPOS MEDIAN NRV CARPAL TUNNE Carpal tunnel decomp bilateral PAST SURGICAL HISTORY OF 07/30/2019 repair bone spur achilles left foot SKIN BIOPSY HX TONSILLECTOMY HX TONSILLECTOMY PRIMARY/SECONDARY <AGE 12 Tonsillectomy Family History FAMILY HISTORY Problem Relation Age of Onset COPD Mother Cancer Mother lung Heart disease Father Cancer Father lung Depression Father Anxiety disorder Father other (cancer) Father Psychiatry Brother No Known Problems Brother Heart disease Maternal Grandmother Heart disease Maternal Grandfather Heart disease Paternal Grandmother Heart disease Paternal Grandfather Multiple Sclerosis Daughter other (apraxia) Son Patient Allergies ALLERGIES No Known Allergies Current Medications Current Outpatient Medications on File Prior to Visit Medication Sig Tadalafil (CIALIS) 5 mg tablet Take 1 tablet by mouth once daily. methadone (DOLOPHINE) 5 mg tablet 1 tablet po q bedtime for treatment refractory restless legs syndrome Do not start before January 13, 2022. lisinopril-hydroCHLOROthiazide (PRINZIDE,ZESTORETIC) 20-12.5 mg per tablet Take 2 tablets by mouth once daily. atorvastatin (LIPITOR) 20 mg tablet Take 1 tablet by mouth daily at bedtime. For cholesterol. CPAP Provide lifetime supplies for AutoPAP 8-15 cm H20 including nasal pillow mask, heated tubing, humidity, filters and fax download report to assess residual AHI to [phone]. Dx: G47.33 CPAP Increase autopap pressure to 8-15 cm of water with humidification. Mask (per patient preference) optional chin strap (if indicated) , filters, tubing, humidifier and lifetime supplies. pregabalin (LYRICA) 50 mg capsule 2 capsule po bid x 2 weeks then 1 capsule po bid x 2 weeks then dc it testosterone cypionate (DEPO-TESTOSTERONE) 200 mg/mL injection Inject 2 mL intramuscularly every 2 weeks for 90 days. ergocalciferol 50,000 unit capsule (VITAMIN D2, DRISDOL) Take 1 capsule by mouth two times a week. on non-consecutive days Syringe with Needle, Disp, 3 mL 25 x 1 1/2 1 Each every 2 weeks. No current facility-administered medications on file prior to visit. Social History Social History Tobacco Use Smoking status: Never Smokeless tobacco: Never Vaping Use Vaping Use: Never used Substance Use Topics Alcohol use: Yes Alcohol/week: 2.0 standard drinks Types: 2 Cans of beer per week Drug use: Never Review of Symptoms REVIEW OF SYSTEMS GENERAL: No weight loss, malaise or fevers HEENT: Negative for frequent or significant headaches, No changes in hearing or vision, no nose bleeds or other nasal problems NECK: Negative for lumps, goiter, pain and significant neck swelling RESPIRATORY: Negative for cough, hemoptysis, wheezing, COPD, dyspnea or shortness of breath CARDIOVASCULAR: Negative for chest pain, leg swelling, hypertension, CHF or palpitations GI: No nausea, vomiting, or diarrhea : No history of dysuria, frequency or incontinence MUSCULOSKELETAL: See HPI SKIN: Positive for rash: Middle of his back x 2 months. Itchy. Treating with lotion without improvement. EXAM: BP 118/72 Pulse (!) 55 Resp 16 Ht 181 cm (5' 11.26) Wt 122.9 kg (271 lb) SpO2 95% BMI 37.52 kg/m General Appearance: Well appearing, alert, in no acute distress, well-hydrated, well nourished.. Skin: Maculopapular rash in the center of his back extending from shoulder blades to lumbar spine. Dry skin noted without vesicles or pustules. Head: Normocephalic, no masses, lesions, tenderness or abnormalities. Eyes: Anicteric sclera. Pupils are equally round and reactive to light. Extraocular movements are intact. . Ears: External ears normal, canals clear. Oropharynx: Lips, mucosa, and tongue normal, teeth and gums normal, oropharynx normal. Neck: Supple, no adenopathy; thyroid symmetric, normal size, no bruits. Lungs: Lungs clear to auscultation. No wheezing, rhonchi, rales.. Heart: RRR without murmur, gallop, or rubs. No ectopy. Abdomen: Normal abdominal exam, Abdomen soft, non-tender. Bowel sounds normal. No masses, organomegaly. Musculoskeletal: no joint pain, swelling, or deformity Extremities: No deformities, edema, skin discoloration, clubbing or cyanosis. Good capillary refill. . Health Maintenance List HEPATITIS B(1 of 3 - 3-dose series) Never done COLORECTAL CANCER SCREENING due on 02/17/2021 COVID-19 VACCINE(3 - Booster for Moderna series) due on 09/19/2021 INFLUENZA(1) due on 02/14/2022 ANNUAL PCP TEAM CHRONIC DISEASE VISIT due on 12/05/2022 BP CONTROLLED (<130/80) due on 12/07/2022 DEPRESSION SCREENING due on 12/09/2022 DIABETES SCREEN due on 01/26/2025 LIPID SCREEN due on 01/26/2027 DTAP,TDAP,TD(2 - Td or Tdap) due on 03/10/2030 HEPATITIS C SCREENING Completed HIV SCREENING Completed SHINGRIX VACCINE Completed Data reviewed Component Latest Ref Rng & Units 01/26/2022 WBC 3.70 - 11.00 k/uL 8.53 RBC 4.20 - 6.00 m/uL 5.82 Hemoglobin 13.0 - 17.0 g/dL 17.6 (H) Hematocrit 39.0 - 51.0 % 52.0 (H) MCV 80.0 - 100.0 fL 89.3 MCH 26.0 - 34.0 pg 30.2 MCHC 30.5 - 36.0 g/dL 33.8 RDW-CV 11.5 - 15.0 % 12.7 Platelet Count 150 - 400 k/uL 273 MPV 9.0 - 12.7 fL 9.9 Neut% % 65.2 Abs Neut (ANC) 1.45 - 7.50 k/uL 5.57 Lymph% % 25.6 Abs Lymph 1.00 - 4.00 k/uL 2.18 Moca% % 6.6 Abs Moca <0.87 k/uL 0.56 Eosin% % 1.6 Abs Eosin <0.46 k/uL 0.14 Baso% % 0.5 Abs Baso <0.11 k/uL 0.04 Immature Gran % % 0.5 IMMATURE GRANS (ABS) <0.10 k/uL 0.04 NRBC /100 WBC 0.0 Absolute nRBC <0.01 k/uL <0.01 DTYPE Auto Protein, Total 6.3 - 8.0 g/dL 6.8 Albumin 3.9 - 4.9 g/dL 4.3 Calcium 8.5 - 10.2 mg/dL 9.1 Bilirubin, Total 0.2 - 1.3 mg/dL 0.7 Alkaline Phosphatase 38 - 113 U/L 73 AST 14 - 40 U/L 20 ALT 10 - 54 U/L 16 Glucose 74 - 99 mg/dL 104 (H) BUN 9 - 24 mg/dL 12 Creatinine 0.73 - 1.22 mg/dL 1.07 Sodium 136 - 144 mmol/L 135 (L) Potassium 3.7 - 5.1 mmol/L 4.1 Chloride 97 - 105 mmol/L 99 CO2 22 - 30 mmol/L 27 Anion Gap 9 - 18 mmol/L 9 eGFR >=60 mL/min/1.73m 83 Cholesterol, Total <200 mg/dL 117 Triglyceride <150 mg/dL 112 HDL Cholesterol >39 mg/dL 28 (L) Non HDL Cholesterol <130 mg/dL 89 Fasting Time hrs 12 VLDL Cholesterol <30 mg/dL 22 TC:HDL Ratio <5.10 4.18 LDL Cholesterol <100 mg/dL 67 LDL:HDL Ratio <2.54 2.39 Hemoglobin A1C 4.3 - 5.6 % 5.7 (H) Estimated Average Glucose mg/dL 117 PSA Screening <2.60 ng/mL 2.52 ASSESSMENT/PLAN: 1. Annual physical exam - ICD9: V70.0, ICD10: Z00.00 (primary diagnosis) - Counseled on healthy diet and regular exercise - Discussed need for and benefit of weight loss. BMI 37.52 kg/(m^2) - Follow up for annual exam in one year 2. Hypogonadism in male - ICD9: 257.2, ICD10: E29.1 Testosterone level pending. Noted erythrocytosis on recent labs. Will recheck CBC after hydration in 1 month. If Hematocrit >54%, will reduce or hold testosterone level due to increased risk for stroke. - TESTOSTERONE CYPIONATE 200 MG/ML INTRAMUSCULAR OIL 3. Erythrocytosis - ICD9: 289.0, ICD10: D75.1 See above. - CBC + DIFF 4. Dermatitis - ICD9: 692.9, ICD10: L30.9 - Topical steriod tx with Rx for steriod cream/ointment- see orders - discussed skin care of rash - follow up if symptoms persist or worsen. 5. Prediabetes - ICD9: 790.29, ICD10: R73.03 Borderline. Discussed low carb diet and exercise. 6. Essential hypertension - ICD9: 401.9, ICD10: I10 - good control - Continue current medication(s) - Encouraged dietary sodium restriction/DASH diet - Recommended regular aerobic exercise. - Goal of BP <140/90 7. Hypertriglyceridemia - ICD9: 272.1, ICD10: E78.1 - good control - Continue current medication. - Encouraged following a low fat, low cholesterol diet. - Discussed the benefits of regular aerobic exercise and weight loss. 8. Erectile dysfunction, unspecified erectile dysfunction type - ICD9: 607.84, ICD10: N52.9 Improved on cialis. - TADALAFIL 5 MG TABLET 9. JOSÉ MIGUEL on CPAP - ICD9: 327.23, V46.8, ICD10: G47.33, Z99.89 Controlled on nightly CPAP. 10. RLS (restless legs syndrome) - ICD9: 333.94, ICD10: G25.81 Controlled on methadone. Follow up with sleep specialist. 11. S/P Achilles tendon repair - ICD9: V45.89, ICD10: Z98.890 Healing well. Continue recommendations per ortho. 12. Arthralgia, unspecified joint - ICD9: 719.40, ICD10: M25.50 No symptoms of RA this time. Discussed may be 2/2 exercise/weight lifting. If symptoms worsen will start rheumatologic workup. Continue OTC analgesics for pain. Chayo Hickey MD documented in this encounter [facility] 01-21-2022 Miscellaneous Notes Agree. documented in this encounter [facility] 01-21-2022 Miscellaneous Notes Agree. documented in this encounter [facility] 12-19-2021 History of Present illness Narrative Nancy Enamorado returns today to follow up/discuss results of their left achilles tendon. Pt expresses no pain today. Pt states he feels that his achilles is progressing and much better. He is still completing physical therapy. Do you have a metal allergy?: No Current Dx: Achilles tendinosis Injury:No Pt. Feels their overall condition is better. Is the patient having any pain? No 0 on a scale of 0 to 10 Current treatment plan includes: Weight Bearing Status: Full Weight bearing status:Full Ambulatory Aids:N/A Physical Therapy:Yes Home Exercise Program: No NSAIDS: Aleve : Taking PRN. Pain medication: None Activity Levels: Normal PHYSICAL EXAM: left ankle Physical examination reveals an alert and oriented patient who is in no acute distress while sitting and is of normal mood and affect. There were no vitals taken for this visit. Gait Cycle: Normal Yes, Limp: none. Inspection: Alignment: neutral Symmetry: Swelling: Markedly decreased almost nonexistent. Redness: no. Ecchymosis: no Effusion: 0 Palpation: Warmth: no, Tenderness:No ROM: Ankle- Normal Foot- Normal. Strength: 5 Stability: Ligamentous instability: no Specialized Tests: negative Neurologic Status: normal. Vascular Status: normal Skin: For the most part he is healed the skin still looks slightly thin but he is healed. XRAYS: 07/20/21 DX: (Z98.890) Status post Achilles tendon repair (primary encounter diagnosis) Plan: I have given him a couple of silicone-based pads talked about protecting this when he wants to go back to work and he does want to go back to work on the .. We will send me ongoing pictures to make sure I am comfortable when he gets back to work that it continues to look okay. I have given him my cell phone number for texting these pictures. Follow-up therefore as needed HPI explored in detail with patient and edited as necessary. At the conclusion of the visit the patient voiced understanding and agreement with the plan. The patient knows to call us or present to the nearest Emergency Department if the patients pain increases. Patient knows how to reach us if there are any questions or problems. This visit required reviewed the patient's medical records, updating historical information, assessing changes in physical examination, and review of all testing information. It required patient-provider interaction for the medical decision making as documented. The time and /or expertise required in this decision-making process, communicating the results as such with the patient and developing the treatment protocol is reflected in the charge capture section of these electronic medical records. This note was partially generated using [employer] voice recognition system, and there may be some incorrect words, spellings, and punctuation that were not noted in checking the note before saving. Carlton Horn M.D. documented in this encounter [facility] 12-14-2021 History of Present illness Narrative Episode Visit Count: 2 Therapist That Will Oversee The Plan Of Care: Justyna Latham Start of Care Date: 11/30/21 Onset Date: 08/21/21 Patient Identified by Name and Date of : Yes REHABILITATION AND SPORTS THERAPY PHYSICAL THERAPY TREATMENT NOTE ASSESSMENT: Nancy Enamorado tolerated the session with no issues. He demonstrated improvements in L ankle AROM, good tolerance to progression of activity. The patient will continue to benefit from ongoing skilled physical therapy to progress toward set goals. PLAN FOR NEXT VISIT: Assess response to progression of exercises and addition of manual techniques. May continue to progress strengthening, AROM, proprioception. Continue with manual techniques for soft tissue restrictions per tolerance and with respect to open wound area. SUBJECTIVE: Patient Reason for Visit: Pt states he has been working it a lot, doing leg press with heel raises just weight of machine and eliptical for 20 min. Notes tenderness/soreness Achilles and post heel area of healing. He notes compliance with HEP and no questions or problems. Pain: Pain Pain Level: 3 Pain Location: Heel - Left (achilles tendon area) Description: (sore, tender) Post Treatment Pain Post Treatment Pain Level: No Change OBJECTIVE MEASURES WITH LEVEL OF FUNCTION: LE AROM L Ankle Dorsiflexion: 5 Degrees L Ankle Plantar Flexion: 50 Degrees L Ankle Inversion: 38 Gait Gait: Independent Gait Device: None Gait Deviations: General Deviations Gait Observation: Note B foot ER and pt notes this was present to some degree prior to this injury. Decreased push off B. TREATMENT: Therapeutic Exercise: 1: Recumbant bike seat 6, pedals *, WL 1.0 x 5 min 2: seated towel calf stretch 3 x 30 sec 3: BAPS board, seated with pegs; A/P and lateral side touches x 20 each 4: BAPS board, seated with pegs; CW and CCW x 20 each 5: BAPS baoard x 10 CW and x 10 CCW (with one wt plate on one peg at a time) 6: seated hamstring stretches 3 x 30 sec 7: Educated pt on appropriate progression of activity and signs/symptoms to watch for and avoid. He was instructed to increase reps of band exercises for HEP keeping appropriate resistance. Skilled Intervention: Patient was educated in proper exercise technique and purpose for exercises. Reviewed and educated patient on additions/changes for home exercise program . Skilled judgment was provided in selection of appropriate interventions. Correct performance of therapeutic exercises was facilitated with verbal and visual cuing. Patient education as noted. Manual Therapy: 1: IASTM with [employer] scanner and tongue depressor L gastrocs, achilles tendon to just above posterior heel wound (avoiding covered area) x 10 min. Pt in prone lying. Skilled Intervention: Manual skills to improve joint mobility, ROM, and decrease pain. Utilized anatomy knowledge of the therapist, and assessment of patient's response to intervention. Billing Therapeutic Exercise Treatment Minutes: 30 Manual TherapyTreatment Minutes: 10 Total Treatment Time Minutes (timed/untimed): 40 uJstyna Latham PT documented in this encounter [facility] 12-07-2021 Instructions Jana Thompson PA-C - 12/07/2021 10:05 AM EDT The following instructions are important for you related to your office visit today with the [facility]. Instructions After THROMBOSED HEMORRHOID I&D STATUS POST INCISION AND EVACUATION OF THROMBOSED HEMORRHOID Nancy is instructed to perform sitz baths twice a day and after each bowel movement. Place dibucaine ointment on anus as needed and before all bowel movements. Keep stools soft and avoid straining if possible. Some bleeding from the incision site where the blood clot was removed is common. If bleeding presists, press on the area with a clean gauze or towel. If pain increases, a new thrombosed hemorrhoid may be present. Return immediately. Return if symptoms fail to improve. If you note any additional difficulties, questions, or concerns, you should contact our office immediately @ [phone] and ask to be transferred to the General Surgery department. documented in this encounter [facility] 12-07-2021 History of Present illness Narrative UNIVERSAL PROTOCOL / SAFETY CHECKLIST Procedure to be Performed: Incision and evacuation of recurrent thrombosed hemorrhoid. Sign In: A Moment of CARE was completed. Personnel directly involved with the procedure wore the appropriate PPE (Personal Protective Equipment). No special equipment needed. Patient/Surrogate Stated/Verified: PATIENT VERIFIED(optional for EMERGENT procedures): Patient name, Date of , Relevant allergies and The intended procedure Time Out Communication: Intended patient and procedure match the source documents. Consent documented and matches the intended procedure. No relevant labs, photos, and/or imaging studies were applicable for review. Correct side/site marked and visible. Medications required for procedure verified. No fire risk assessment and interventions applicable. No implant(s) inserted. Sign Out: SIGN OUT (optional for EMERGENT procedures): No specimen collected. No instruments, equipment or retained foreign bodies applicable. Post-procedure follow-up management communicated and Plan of Care Visit completed when applicable. Kesha Alfaro RN HISTORY AND PHYSICAL Nancy Enamorado 1970 REFERRING PHYSICIAN: Chayo Hickey,* CHIEF COMPLAINT: Thrombosed hemorrhoid HPI: Nancy is a 51 year old male with a complaint of a recurrent thrombosed hemorrhoid. He previously underwent incision and evacuation of a very large thrombosed hemorrhoid on 12/05/21. He noted significant relief after that procedure. Notes today he still feels a smaller area that is sore. Notes drainage from the thrombosed hemorrhoid. SIGNIFICANT MEDICAL PROBLEMS: PAST MEDICAL HISTORY Diagnosis Date BPH (benign prostatic hyperplasia) Erectile dysfunction Heel spur, left Hypertension Hypertriglyceridemia Hypogonadism in male Idiopathic neuropathy Dr Soliman JOSÉ MIGUEL (obstructive sleep apnea) 08/2020 Prediabetes RLS (restless legs syndrome) Thrombosed hemorrhoids 11/2021 OPERATIONS: PAST SURGICAL HISTORY Procedure Laterality Date APPENDECTOMY ARTHROSCOPY KNEE DIAGNOSTIC W/WO SYNOVIAL BX SPX Left Arthroscopy, knee CHOLECYSTECTOMY HX HERNIA REPAIR HX Bilateral inguinal hernia, congenital NEUROPLASTY &/TRANSPOS MEDIAN NRV CARPAL TUNNE Carpal tunnel decomp bilateral PAST SURGICAL HISTORY OF 07/30/2019 repair bone spur achilles left foot SKIN BIOPSY HX TONSILLECTOMY HX TONSILLECTOMY PRIMARY/SECONDARY <AGE 12 Tonsillectomy CURRENT MEDICATIONS: Current Outpatient Medications Medication Sig Dispense Refill hydrocortisone (ANUSOL-HC) 2.5 % rectal cream by RECTAL route twice daily for 14 days. 28 g 1 pregabalin (LYRICA) 150 mg capsule Take 1 capsule by mouth twice daily for 90 days. 60 capsule 2 methadone 5 mg/5 mL solution Take 4 mL by mouth every evening for 30 days. For RLS-pain Do not start before November 05, 2021. 120 mL 0 lisinopril-hydroCHLOROthiazide (PRINZIDE,ZESTORETIC) 20-12.5 mg per tablet Take 2 tablets by mouth once daily. 180 tablet 1 atorvastatin (LIPITOR) 20 mg tablet Take 1 tablet by mouth daily at bedtime. For cholesterol. 90 tablet 1 testosterone cypionate (DEPO-TESTOSTERONE) 200 mg/mL injection Inject 2 mL intramuscularly every 2 weeks for 90 days. 12 mL 0 ergocalciferol 50,000 unit capsule (VITAMIN D2, DRISDOL) Take 1 capsule by mouth two times a week. on non-consecutive days 30 capsule 0 Tadalafil (CIALIS) 5 mg tablet Take 1 tablet by mouth once daily. 90 tablet 1 CPAP Provide lifetime supplies for AutoPAP 8-15 cm H20 including nasal pillow mask, heated tubing, humidity, filters and fax download report to assess residual AHI to [phone]. Dx: G47.33 CPAP Increase autopap pressure to 8-15 cm of water with humidification. Mask (per patient preference) optional chin strap (if indicated) , filters, tubing, humidifier and lifetime supplies. 1 Device 0 Syringe with Needle, Disp, 3 mL 25 x 1 1/2 1 Each every 2 weeks. 6 Each 1 methadone 5 mg/5 mL solution Take 4 mL by mouth every evening for 30 days. For RLS-pain 120 mL 0 No current facility-administered medications for this visit. ALLERGIES: Patient has no known allergies. PERSONAL HISTORY: Social History Tobacco Use Smoking status: Never Smoker Smokeless tobacco: Never Used Vaping Use Vaping Use: Never used Substance Use Topics Alcohol use: Yes Alcohol/week: 2.0 standard drinks Types: 2 Cans of beer per week Drug use: Never FAMILY HISTORY: FAMILY HISTORY Problem Relation Age of Onset COPD Mother Cancer Mother lung Heart disease Father Cancer Father lung Depression Father Anxiety disorder Father other (cancer) Father Psychiatry Brother No Known Problems Brother Heart disease Maternal Grandmother Heart disease Maternal Grandfather Heart disease Paternal Grandmother Heart disease Paternal Grandfather Multiple Sclerosis Daughter other (apraxia) Son REVIEW OF SYMPTOMS: negative except as noted above PHYSICAL EXAMINATION: General: The patient is 51 year old male, well nourished, well hydrated in no acute distress. The patient is oriented to time, place, and person. VITALS: Blood pressure 122/62, pulse 64, temperature 36.9 C (98.5 F), height 182.9 cm (6'), weight 124.3 kg (274 lb), SpO2 94 %. Body mass index is 37.16 kg/m . HEENT: exam deferred Respiratory: exam deferred Cardiac: exam deferred. Abdominal exam: exam deferred Rectal exam: +small recurrent thrombosed hemorrhoid just superior to prior incision Extremities: exam deferred Other: LABORATORY VALUES: As Noted RADIOLOGIC STUDIES: As Noted PROCEDURE: INCISION AND EVACUATION OF THROMBOSED HEMORRHOID After consent was obtained and the site, person, and procedure verified, the patient`s skin was prepped and draped in the usual fashion. A combination of Lidocaine and Marcaine was injected into the skin and the hemorrhoidal complex. A linear incision was made over the point of thrombosis. A small amount of thrombus was evacuated. Pressure was held to obtain hemostasis. The patient tolerated the procedure well. Assessment IMPRESSION: STATUS POST INCISION AND EVACUATION OF THROMBOSED HEMORRHOID PLAN: Nancy is instructed to perform sitz baths twice a day and after each bowel movement. Place dibucaine ointment on anus as needed and before all bowel movements. Keep stools soft and avoid straining if possible. Some bleeding from the incision site where the blood clot was removed is common. If bleeding presists, press on the area with a clean gauze or towel. If pain increases, a new thrombosed hemorrhoid may be present. Return immediately. Return if symptoms fail to improve. Diagnoses: (K64.5) Thrombosed hemorrhoids Return to Clinic: The patient is instructed to follow-up with me as needed. Jana Thompson PA-C documented in this encounter [facility] 12-06-2021 History of Present illness Narrative HISTORY AND PHYSICAL Nancy Cardenas Kelsea 1970 REFERRING PHYSICIAN: Chayo Hickey,* CHIEF COMPLAINT: Thrombosed hemorrhoid HPI: Nancy is a 51 year old male with a complaint of a thrombosed hemorrhoid. he has noticed anal pain and swelling for the past several days, increasing in severity and notes severe pain with sitting today. He denies drainage from the thrombosed hemorrhoid. Nancy denies a prior history of thrombosed hemorrhoids. he denies a history of constipation and straining, but NOTES has recently been doing lots of lifting and upper body workouts. The patient was seen by his primary care physician and was referred for treatment. SIGNIFICANT MEDICAL PROBLEMS: PAST MEDICAL HISTORY Diagnosis Date BPH (benign prostatic hyperplasia) Erectile dysfunction Heel spur, left Hypertension Hypertriglyceridemia Hypogonadism in male Idiopathic neuropathy Dr Soliman JSOÉ MIGUEL (obstructive sleep apnea) 08/2020 Prediabetes RLS (restless legs syndrome) Thrombosed hemorrhoids 11/2021 OPERATIONS: PAST SURGICAL HISTORY Procedure Laterality Date APPENDECTOMY ARTHROSCOPY KNEE DIAGNOSTIC W/WO SYNOVIAL BX SPX Left Arthroscopy, knee CHOLECYSTECTOMY HX HERNIA REPAIR HX Bilateral inguinal hernia, congenital NEUROPLASTY &/TRANSPOS MEDIAN NRV CARPAL TUNNE Carpal tunnel decomp bilateral PAST SURGICAL HISTORY OF 07/30/2019 repair bone spur achilles left foot SKIN BIOPSY HX TONSILLECTOMY HX TONSILLECTOMY PRIMARY/SECONDARY <AGE 11 Tonsillectomy CURRENT MEDICATIONS: Current Outpatient Medications Medication Sig Dispense Refill hydrocortisone (ANUSOL-HC) 2.5 % rectal cream by RECTAL route twice daily for 14 days. 28 g 1 pregabalin (LYRICA) 150 mg capsule Take 1 capsule by mouth twice daily for 90 days. 60 capsule 2 methadone 5 mg/5 mL solution Take 4 mL by mouth every evening for 30 days. For RLS-pain Do not start before November 05, 2021. 120 mL 0 methadone 5 mg/5 mL solution Take 4 mL by mouth every evening for 30 days. For RLS-pain 120 mL 0 lisinopril-hydroCHLOROthiazide (PRINZIDE,ZESTORETIC) 20-12.5 mg per tablet Take 2 tablets by mouth once daily. 180 tablet 1 atorvastatin (LIPITOR) 20 mg tablet Take 1 tablet by mouth daily at bedtime. For cholesterol. 90 tablet 1 testosterone cypionate (DEPO-TESTOSTERONE) 200 mg/mL injection Inject 2 mL intramuscularly every 2 weeks for 90 days. 12 mL 0 ergocalciferol 50,000 unit capsule (VITAMIN D2, DRISDOL) Take 1 capsule by mouth two times a week. on non-consecutive days 30 capsule 0 Tadalafil (CIALIS) 5 mg tablet Take 1 tablet by mouth once daily. 90 tablet 1 CPAP Provide lifetime supplies for AutoPAP 8-15 cm H20 including nasal pillow mask, heated tubing, humidity, filters and fax download report to assess residual AHI to [phone]. Dx: G47.33 CPAP Increase autopap pressure to 8-15 cm of water with humidification. Mask (per patient preference) optional chin strap (if indicated) , filters, tubing, humidifier and lifetime supplies. 1 Device 0 Syringe with Needle, Disp, 3 mL 25 x 1 1/2 1 Each every 2 weeks. 6 Each 1 No current facility-administered medications for this visit. ALLERGIES: Patient has no known allergies. PERSONAL HISTORY: Social History Tobacco Use Smoking status: Never Smoker Smokeless tobacco: Never Used Vaping Use Vaping Use: Never used Substance Use Topics Alcohol use: Yes Alcohol/week: 2.0 standard drinks Types: 2 Cans of beer per week Drug use: Never FAMILY HISTORY: FAMILY HISTORY Problem Relation Age of Onset COPD Mother Cancer Mother lung Heart disease Father Cancer Father lung Depression Father Anxiety disorder Father other (cancer) Father Psychiatry Brother No Known Problems Brother Heart disease Maternal Grandmother Heart disease Maternal Grandfather Heart disease Paternal Grandmother Heart disease Paternal Grandfather Multiple Sclerosis Daughter other (apraxia) Son REVIEW OF SYMPTOMS: The review of systems data was entered by the nurse and reviewed by hi Nursing Notes: Zita Haasz 12/05/2021 2:41 PM Signed REVIEW OF SYSTEMS: General: The patient denies fatigue, denies weight loss, denies weight gain, denies feeling hot, and denies feelings of cold. Eyes: The patient denies glaucoma, denies eye injury/surgery, does not wear glasses or contacts. Ear/Nose/Throat: The patient NOTES allergies, denies hayfever, denies ear infections, and denies bloody noses. Cardiovascular: The patient denies chest pain, denies heart disease, NOTES high blood pressure,denies cardiac stent, denies prior heart attack, denies irregular heart beat, NOTES high cholesterol, denies poor circulation, denies heart failure, other cardiac issues, denies claudication, denies cold feet, denies peripheral arterial stent. Respiratory: The patient denies tuberculosis, denies pneumonia, denies frequent cough, denies pulmonary embolism, denies shortness of breath, and denies coughing up blood. Gastrointestinal: The patient denies difficulty swallowing, denies acid reflux, denies ulcers, denies vomiting, denies jaundice/hepatitis, denies gallbladder problems, denies black or tarry stools, NOTES hemorrhoids, NOTES bleeding from rectum, denies diverticulitis, denies constipation, denies diarrhea, denies loss of stool control, and denies hernias. Kidney/Bladder: The patient denies kidney stones, denies urine infections, and denies bloody urine. Skin: The patient denies a history of skin cancer, denies bleeding/changing moles, and denies a history of skin rash. Neurologic: The patient denies a history of epilepsy/convulsions, denies headaches, denies head/spinal injuries, and denies stroke/TIA. Psychiatric: The patient denies psychiatric medications, denies depression, and denies voices, denies substance abuse. Endocrine: The patient denies thyroid disorders, denies diabetes, and denies hormonal problems. Hematologic: The patient denies a history of bruising, denies bleeding, and denies anemia, denies blood clots. Infections: The patient denies a history of measles and mumps, denies rheumatic fever, and denies sexually transmitted diseases. Musculoskeletal: The patient denies back pain/injury, denies back problems, denies sciatica, NOTES knee/foot trouble, denies arthritis, or denies gout. When was patient's last Mammogram screening? N/A Last Colonoscopy: 2019 Zita Buchanan I have confirmed and edited as necessary, the PFSH and ROS obtained by others. Jana Thompson PA-C PHYSICAL EXAMINATION: General: The patient is 51 year old male, well nourished, well hydrated in no acute distress. The patient is oriented to time, place, and person. VITALS: Blood pressure 145/80, pulse 77, temperature 36.8 C (98.2 F), height 182.9 cm (6'), weight 122.9 kg (271 lb), SpO2 97 %. Body mass index is 36.75 kg/m . HEENT: exam deferred Respiratory: exam deferred Cardiac: exam deferred. Abdominal exam: exam deferred Rectal exam: Large prolapsing thrombosed hemorrhoids in right and left lower quadrants. Digital rectal exam - deferred Extremities: exam deferred Other: LABORATORY VALUES: As Noted RADIOLOGIC STUDIES: As Noted PROCEDURE: INCISION AND EVACUATION OF THROMBOSED HEMORRHOID After consent was obtained and the site, person, and procedure verified, the patient`s skin was prepped and draped in the usual fashion. A combination of Lidocaine and Marcaine was injected into the skin and the hemorrhoidal complex. A linear incision was made over the point of thrombosis. A very large amount of thrombus was evacuated. Pressure was held to obtain hemostasis. The patient tolerated the procedure well. Assessment IMPRESSION: STATUS POST INCISION AND EVACUATION OF THROMBOSED HEMORRHOID PLAN: Nancy is instructed to perform sitz baths twice a day and after each bowel movement. Place dibucaine ointment on anus as needed and before all bowel movements. Keep stools soft and avoid straining if possible. Some bleeding from the incision site where the blood clot was removed is common. If bleeding presists, press on the area with a clean gauze or towel. If pain increases, a new thrombosed hemorrhoid may be present. Return immediately. Return if symptoms fail to improve. Diagnoses: (K64.5) External hemorrhoid, thrombosed (primary encounter diagnosis) Return to Clinic: The patient is instructed to follow-up with me this Friday if symptoms not completely resolved by that time Consultation requested by Dr. Hickey for an opinion regarding thrombosed hemorrhoid. My final recommendations will be communicated back to the requesting physician by way of shared Medical record or letter to requesting physician via US mail. Jana Thompson PA-C UNIVERSAL PROTOCOL / SAFETY CHECKLIST Procedure to be Performed: Incision and evacuation of thrombosed Hemorrhoid Sign In: A Moment of CARE was completed. Personnel directly involved with the procedure wore the appropriate PPE (Personal Protective Equipment). Patient/Surrogate Stated/Verified: PATIENT VERIFIED(optional for EMERGENT procedures): Patient name, Date of , Relevant allergies and The intended procedure Time Out Communication: Intended patient and procedure match the source documents. Consent documented and matches the intended procedure. Sign Out: Zita Buchanan documented in this encounter [facility] 12-05-2021 Instructions Jana Thompson PA-C - 12/05/2021 3:27 PM EDT The following instructions are important for you related to your office visit today with the [facility]. Instructions After THROMBOSED HEMORRHOID I&D STATUS POST INCISION AND EVACUATION OF THROMBOSED HEMORRHOID Nancy is instructed to perform sitz baths twice a day and after each bowel movement. Place dibucaine ointment on anus as needed and before all bowel movements. Keep stools soft and avoid straining if possible. Some bleeding from the incision site where the blood clot was removed is common. If bleeding presists, press on the area with a clean gauze or towel. If pain increases, a new thrombosed hemorrhoid may be present. Return immediately. Return if symptoms fail to improve. If you note any additional difficulties, questions, or concerns, you should contact our office immediately @ [phone] and ask to be transferred to the General Surgery department. documented in this encounter [facility] 12-05-2021 Nurse Note REVIEW OF SYSTEMS: General: The patient denies fatigue, denies weight loss, denies weight gain, denies feeling hot, and denies feelings of cold. Eyes: The patient denies glaucoma, denies eye injury/surgery, does not wear glasses or contacts. Ear/Nose/Throat: The patient NOTES allergies, denies hayfever, denies ear infections, and denies bloody noses. Cardiovascular: The patient denies chest pain, denies heart disease, NOTES high blood pressure,denies cardiac stent, denies prior heart attack, denies irregular heart beat, NOTES high cholesterol, denies poor circulation, denies heart failure, other cardiac issues, denies claudication, denies cold feet, denies peripheral arterial stent. Respiratory: The patient denies tuberculosis, denies pneumonia, denies frequent cough, denies pulmonary embolism, denies shortness of breath, and denies coughing up blood. Gastrointestinal: The patient denies difficulty swallowing, denies acid reflux, denies ulcers, denies vomiting, denies jaundice/hepatitis, denies gallbladder problems, denies black or tarry stools, NOTES hemorrhoids, NOTES bleeding from rectum, denies diverticulitis, denies constipation, denies diarrhea, denies loss of stool control, and denies hernias. Kidney/Bladder: The patient denies kidney stones, denies urine infections, and denies bloody urine. Skin: The patient denies a history of skin cancer, denies bleeding/changing moles, and denies a history of skin rash. Neurologic: The patient denies a history of epilepsy/convulsions, denies headaches, denies head/spinal injuries, and denies stroke/TIA. Psychiatric: The patient denies psychiatric medications, denies depression, and denies voices, denies substance abuse. Endocrine: The patient denies thyroid disorders, denies diabetes, and denies hormonal problems. Hematologic: The patient denies a history of bruising, denies bleeding, and denies anemia, denies blood clots. Infections: The patient denies a history of measles and mumps, denies rheumatic fever, and denies sexually transmitted diseases. Musculoskeletal: The patient denies back pain/injury, denies back problems, denies sciatica, NOTES knee/foot trouble, denies arthritis, or denies gout. When was patient's last Mammogram screening? N/A Last Colonoscopy: 2019 Zita Buchanan documented in this encounter [facility] 12-05-2021 History of Present illness Narrative Chief Complaint Patient presents with: Rectal Problem HPI Nancy Enamorado is a 51 year old male who presents here today for Evaluation of hemorrhoids. Patient states that he developed almond sized hemorrhoid in the last 2 days with pain without itching/bleeding/constipation. Does go to the gym and has been doing more heavy lifting. not sitting on toilet for long periods of time. Treating with preparation H pads, recticare cream, sitz baths without improvement. Past medical history, appointments, medications, allergies reviewed. Previous Medical History PAST MEDICAL HISTORY Diagnosis Date BPH (benign prostatic hyperplasia) Erectile dysfunction Heel spur, left Hypertension Hypertriglyceridemia Hypogonadism in male Idiopathic neuropathy Dr Soliman JOSÉ MIGUEL (obstructive sleep apnea) 08/2020 Prediabetes RLS (restless legs syndrome) Previous Surgical History PAST SURGICAL HISTORY Procedure Laterality Date APPENDECTOMY APPENDECTOMY HX ARTHROSCOPY KNEE DIAGNOSTIC W/WO SYNOVIAL BX SPX Left Arthroscopy, knee CHOLECYSTECTOMY HX HERNIA REPAIR HX Bilateral inguinal hernia, congenital NEUROPLASTY &/TRANSPOS MEDIAN NRV CARPAL TUNNE Carpal tunnel decomp bilateral PAST SURGICAL HISTORY OF 07/30/2019 repair bone spur achilles left foot SKIN BIOPSY HX TONSILLECTOMY HX TONSILLECTOMY PRIMARY/SECONDARY <AGE 12 Tonsillectomy Family History FAMILY HISTORY Problem Relation Age of Onset COPD Mother Cancer Mother lung Heart disease Father Cancer Father lung Depression Father Anxiety disorder Father other (cancer) Father Psychiatry Brother No Known Problems Brother Heart disease Maternal Grandmother Heart disease Maternal Grandfather Heart disease Paternal Grandmother Heart disease Paternal Grandfather Multiple Sclerosis Daughter other (apraxia) Son Patient Allergies ALLERGIES No Known Allergies Current Medications Current Outpatient Medications on File Prior to Visit Medication Sig pregabalin (LYRICA) 150 mg capsule Take 1 capsule by mouth twice daily for 90 days. methadone 5 mg/5 mL solution Take 4 mL by mouth every evening for 30 days. For RLS-pain Do not start before November 05, 2021. lisinopril-hydroCHLOROthiazide (PRINZIDE,ZESTORETIC) 20-12.5 mg per tablet Take 2 tablets by mouth once daily. atorvastatin (LIPITOR) 20 mg tablet Take 1 tablet by mouth daily at bedtime. For cholesterol. testosterone cypionate (DEPO-TESTOSTERONE) 200 mg/mL injection Inject 2 mL intramuscularly every 2 weeks for 90 days. ergocalciferol 50,000 unit capsule (VITAMIN D2, DRISDOL) Take 1 capsule by mouth two times a week. on non-consecutive days Tadalafil (CIALIS) 5 mg tablet Take 1 tablet by mouth once daily. CPAP Provide lifetime supplies for AutoPAP 8-15 cm H20 including nasal pillow mask, heated tubing, humidity, filters and fax download report to assess residual AHI to [phone]. Dx: G47.33 CPAP Increase autopap pressure to 8-15 cm of water with humidification. Mask (per patient preference) optional chin strap (if indicated) , filters, tubing, humidifier and lifetime supplies. Syringe with Needle, Disp, 3 mL 25 x 1 1/2 1 Each every 2 weeks. methadone 5 mg/5 mL solution Take 4 mL by mouth every evening for 30 days. For RLS-pain No current facility-administered medications on file prior to visit. Social History Social History Tobacco Use Smoking status: Never Smoker Smokeless tobacco: Never Used Vaping Use Vaping Use: Never used Substance Use Topics Alcohol use: Yes Alcohol/week: 2.0 standard drinks Types: 2 Cans of beer per week Drug use: Never Review of Symptoms REVIEW OF SYSTEMS See HPI EXAM: BP 132/78 Pulse 68 Resp 16 Wt 123.6 kg (272 lb 6.4 oz) SpO2 97% BMI 36.94 kg/m General Appearance: Well appearing, alert, in no acute distress, well-hydrated, well nourished.. Rectal: Large thrombosed external hemorrhoid at 9 o'clock without bleeding. TTP. No internal hemorrhoids appreciable. Health Maintenance List BP CONTROLLED (<130/80) Never done COLORECTAL CANCER SCREENING due on 02/17/2021 COVID-19 VACCINE(3 - Booster for Moderna series) due on 09/19/2021 ANNUAL PCP TEAM CHRONIC DISEASE VISIT due on 03/23/2022 DEPRESSION SCREENING due on 10/01/2022 DIABETES SCREEN due on 07/06/2024 LIPID SCREEN due on 02/14/2025 DTAP,TDAP,TD(2 - Td or Tdap) due on 03/10/2030 INFLUENZA Completed HEPATITIS C SCREENING Completed HIV SCREENING Completed SHINGRIX VACCINE Completed ASSESSMENT/PLAN: 1. Thrombosed hemorrhoids - ICD9: 455.7, ICD10: K64.5 With large thrombosed hemorrhoid, will have patient follow up with surgery for hemorrhoidectomy. Scheduled for Friday with Dr. Fierro. Will have patient treat with anusol BID until appointment. Red flags for re-assessment reviewed with patient in detail. - CONSULT TO GENERAL SURGERY Chayo Hickey MD documented in this encounter [facility] 2021 Miscellaneous Notes Patient returned call, scheduled OV. Dena Moscoso LPN Left message to call office. 2021 10:42 AM Mychart also sent. Recommend he come in for OV to evaluate and discuss treatment. documented in this encounter [facility] 11-30-2021 History of Present illness Narrative Episode Visit Count: 1 Therapist That Will Oversee The Plan Of Care: Justyna Latham Start of Care Date: 11/30/21 Onset Date: 08/21/21 Patient Identified by Name and Date of : Yes REHABILITATION AND SPORTS THERAPY PHYSICAL THERAPY EVALUATION PLAN OF CARE: Assessment: Nancy Enamorado presents with diagnosis of achilles tendonitis that interferes with nothing . He presents with impairments in edema management, flexibility, overall function, range of motion, soft tissue healing, strengthfunctional. Prognosis for therapy is Excellent due to: current objective clinical presentation;good overall health status;good support system/ coping skills . He will benefit from skilled therapy services to meet the goals established for this plan of care as noted below. Goals for Episode of Care: created on 11/30/21 through 01/30/22 [place] in home exercise program. Patient will decrease pain rating by 2 points to meet minimal clinical important difference for numeric pain rating scale. Patient will increase active ROM of R ankle to 8-10 deg DF, 45-50 deg PF to allow pt to to improve performance of ADLs and to improve gait mechanics / gait pattern . Patient will demonstrate increase in L LE strength to 5/5 during manual muscle testing in order to improve function for leisure / recreation skills and work tasks. Patient will increase flexibility of hamstrings to equal unaffected extremity/side to improve mechanics. Perform community ambulation, recreational and work activities without pain. Normal gait. Patient Goals: To regain strength and motion to get back to doing everything as before and back to work. Planned Interventions, Frequency, and Duration: Current Frequency: 1x/week Duration: 8 weeks Total Number of Visits Planned: 8 Planned Treatment Interventions: Therapeutic exercise (82363);Neuromuscular re-education (77504);Manual therapy (43275);Gait Training (90739);Patient/Family/Caregiver Education PLAN FOR NEXT VISIT: Review HEP with modifications or progression as appriopriate. May assess incision and surrounding soft tissue for restrictions with caution per open wound status. Patient demonstrates good understanding of plan of care and treatment. The above goals and plan of care were discussed and agreed upon by patient/family. SUBJECTIVE: Nancy Enamorado is a 50 year old male seen today for Pt reports he has been doing well since his surgery. He states he has been working out daily as he has to keep moving while being off work. Biggest issue is his wound is still the size of a chasity and has not closed yet. (Located at posterior distal heel). Swelling remains. Patient Goals: To regain strength and motion to get back to doing everything as before and back to work. 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 Intake Information: Prescription present Previous Treatment: (walking, knee exercises (nothing with the heel or ankle), iodine and milk of magnesia on wound) Pain: Pain Pain Level: 2 Pain Location: (around the incision, not at the opening) Description: (more tired than anything, calf will get sore, tightness) Post Treatment Pain Post Treatment Pain Level: No Change PROMIS Scales Higher is Better 07/03/2021 08/08/2021 11/28/2021 Phys Func - Score - - 49 (within normal limits) Phys Func - Percentile - - 46 % Social Roles - Score - - 40 (mild dysfunction) Social Role - Percentile - - 16 % GH Physical - Score 50.8 (Very Good) 42.3 (Good) 44.9 (Good) GH Physical - Percentile 53 % 22 % 31 % GH Mental - Score 59 (Excellent) 62.5 (Excellent) 62.5 (Excellent) GH Mental - Percentile 82 % 89 % 89 % Self-Eff Symptom - Score - - 43 (Average) Self-Eff Symptom - Percentile - - 24 % T-scores: mean of general population = 50. 5 points is clinically meaningfully difference Percentiles provide an indication of how the patient's score ranks in relation to the general population. Higher percentile rankings indicate better function/quality of life. 50th percentile is the average of the general population and indicates half of respondents had a worse score. Lower is Better 05/10/2020 11/28/2021 Fatigue - Score 50 (within normal limits) 56 (mild) Fatigue - Percentile 50 % 27 % T-scores: mean of general population = 50. 5 points is clinically meaningfully difference Percentiles provide an indication of how the patient's score ranks in relation to the general population. Higher percentile rankings indicate better function/quality of life. 50th percentile is the average of the general population and indicates half of respondents had a worse score. OBJECTIVE MEASURES WITH LEVEL OF FUNCTION: Ankle Observations L Ankle Presents with: Swelling;Incision R Ankle Girth - Figure 8 (cm): (2 above mall: 25cm, at B mall: 29.5cm, heel 34.5cm, midfoot 25.5cm, MTP 25.) L Ankle Girth - Figure 8 (cm): (2 above mall: 25cm, at B mall: 30cm, heel 35cm, midfoot 26cm, MTP 25.5.) L Foot Observations: Pt presents with band aid type covering at distal posterior heel. healed incision vertically an inch and half above that. LE AROM R Ankle Dorsiflexion: 8 Degrees R Ankle Plantar Flexion: 56 Degrees R Ankle Inversion: 40 R Ankle Eversion: 5 L Ankle Dorsiflexion: 4 Degrees L Ankle Plantar Flexion: 44 Degrees L Ankle Inversion: 35 L Ankle Eversion: 10 LE Flexibility Flexibility: Straight Leg Raise R SLR Flexibility: 50 L SLR Flexibility: 45 LE Strength R LE Strength: 5/5 L Hip Flexion (L2): 5/5 L Hip ABduction: 4+/5 L Hip ADduction: 5/5 L Knee Extension (L3): 4+/5 L Knee Flexion: 4+/5 L Ankle Dorsiflexion (L4): 4+/5 L Ankle Plantar Flexion: 5/5 Gait Gait Observation: Pt ambulates independently with no assistive device. Education: Education Learning Preferences: Demonstration;Explanation Barriers: None Learning/educational needs: Plan of Care;Home exercise program Education Provided: Yes, see treatment interventions for education provided Education Provided To: Patient Education Mode/Type: Explanation/Discussion;Demonstrati on;Literature/Printed Materials;Performance Response to Education/Teach Back: States/Identifies;Return Demonstration TREATMENT: PT Treatment Interventions: Therapeutic Exercise Evaluation Therapeutic Exercise: 1: *seated towel calf stretch 3 x 30 sec 2: *seated hamstring stretches 3 x 30 sec 3: *ankle PF with blue band 3 x 10 4: *ankle DF with blue band 3 x 10 5: *ankle inversion with blue band 3 x 10 6: *ankle eversion with blue band 3 x 10 Skilled Intervention: Patient was educated in proper exercise technique and purpose for exercises. Skilled judgment was provided in selection of appropriate interventions. Provided written instruction for home exercise program to facilitate proper performance and compliance. Correct performance of therapeutic exercises was facilitated with verbal and visual cuing. Patient education as noted. Billing * Evaluation Low Complexity: 1 Unit Therapeutic Exercise Treatment Minutes: 17 Total Treatment Time Minutes (timed/untimed): 43 Justyna Latham PT documented in this encounter [facility] 11-29-2021 Miscellaneous Notes Images from the original note were not included. documented in this encounter [facility] 11-28-2021 History of Present illness Narrative REFERRING DR. : Carlton Horn [id number] [facility] [id number] Nancy is now 15 weeks status post achilles tendon repair, transfer tendon and ostectomy calcaneous spur plantar facial release DOS: 08/21. He reports overall he feels like he is doing well. He denies pain reports his incision area is [employer] at times. He was last seen 11/07. His concern is the ulcer he has at his heel. He reports it is not improving. He does have some clear drainage daily. He has been changing the dressing daily. Patient has been using milk of magnesia and iodine as a wound care supplement and over the past 5 days has since has been using it is been making miraculous improvement. Do you have a metal allergy?:No Vital Signs: There were no vitals taken for this visit. Current Medication: Current Outpatient Medications Medication Sig Dispense Refill pregabalin (LYRICA) 150 mg capsule Take 1 capsule by mouth twice daily for 90 days. 60 capsule 2 methadone 5 mg/5 mL solution Take 4 mL by mouth every evening for 30 days. For RLS-pain Do not start before November 05, 2021. 120 mL 0 methadone 5 mg/5 mL solution Take 4 mL by mouth every evening for 30 days. For RLS-pain 120 mL 0 lisinopril-hydroCHLOROthiazide (PRINZIDE,ZESTORETIC) 20-12.5 mg per tablet Take 2 tablets by mouth once daily. 180 tablet 1 atorvastatin (LIPITOR) 20 mg tablet Take 1 tablet by mouth daily at bedtime. For cholesterol. 90 tablet 1 testosterone cypionate (DEPO-TESTOSTERONE) 200 mg/mL injection Inject 2 mL intramuscularly every 2 weeks for 90 days. 12 mL 0 ergocalciferol 50,000 unit capsule (VITAMIN D2, DRISDOL) Take 1 capsule by mouth two times a week. on non-consecutive days 30 capsule 0 Tadalafil (CIALIS) 5 mg tablet Take 1 tablet by mouth once daily. 90 tablet 1 CPAP Provide lifetime supplies for AutoPAP 8-15 cm H20 including nasal pillow mask, heated tubing, humidity, filters and fax download report to assess residual AHI to [phone]. Dx: G47.33 CPAP Increase autopap pressure to 8-15 cm of water with humidification. Mask (per patient preference) optional chin strap (if indicated) , filters, tubing, humidifier and lifetime supplies. 1 Device 0 Syringe with Needle, Disp, 3 mL 25 x 1 1/2 1 Each every 2 weeks. 6 Each 1 No current facility-administered medications for this visit. Medical History: PAST MEDICAL HISTORY Diagnosis Date BPH (benign prostatic hyperplasia) Erectile dysfunction Heel spur, left Hypertension Hypertriglyceridemia Hypogonadism in male Idiopathic neuropathy Dr Soliman JOSÉ MIGUEL (obstructive sleep apnea) 08/2020 Prediabetes RLS (restless legs syndrome) Surgical History: PAST SURGICAL HISTORY Procedure Laterality Date APPENDECTOMY APPENDECTOMY HX ARTHROSCOPY KNEE DIAGNOSTIC W/WO SYNOVIAL BX SPX Left Arthroscopy, knee CHOLECYSTECTOMY HX HERNIA REPAIR HX Bilateral inguinal hernia, congenital NEUROPLASTY &/TRANSPOS MEDIAN NRV CARPAL TUNNE Carpal tunnel decomp bilateral PAST SURGICAL HISTORY OF 07/30/2019 repair bone spur achilles left foot SKIN BIOPSY HX TONSILLECTOMY HX TONSILLECTOMY PRIMARY/SECONDARY <AGE 11 Tonsillectomy Current Tx Plan Includes: Dressing changes with iodine and Milk of Magnesia PHYSICAL EXAM: left ankle, left foot Physical examination reveals an alert and oriented patient who is in no acute distress while sitting and is of normal mood and affect. Skin continues to improve. New wound care regimen seems to be very effective. DX: (M67.88) Achilles tendinosis of left lower extremity (primary encounter diagnosis) PLAN: Overall much improvement his range of motion and strength are good we will continue present course of dressing treatment wound care and follow-up in 2 weeks BWC: Work Status: N/A Return to clinic in 2 weeks. HPI explored in detail with patient and edited as necessary. At the conclusion of the visit the patient voiced understanding and agreement with the plan. The patient knows to call us or present to the nearest Emergency Department if the patients pain increases. Patient knows how to reach us if there are any questions or problems. This visit required reviewed the patient's medical records, updating historical information, assessing changes in physical examination, and review of all testing information. It required patient-provider interaction for the medical decision making as documented. The time and /or expertise required in this decision-making process, communicating the results as such with the patient and developing the treatment protocol is reflected in the charge capture section of these electronic medical records. This note was partially generated using [employer] voice recognition system, and there may be some incorrect words, spellings, and punctuation that were not noted in checking the note before saving. Carlton Horn M.D. documented in this encounter [facility] 11-05-2021 History of Present illness Narrative POD 11 weeks Surgery: left secondary achilles repair with flexor hallucis longus tendon transfer, harvesting and tendon transfer plantaris tendon, excision of Rg's deformity, surgeon monitored fluoroscopy on 08/21/21 He continues NWB and using knee scooter, Dressings: dsd over distal achilles definitely decreased size of ulcerated area today Incision: dry/intact/well-approximated, no redness Sutures: NA Drain: NA Pin sites: NA Left achilles/foot pain: 0/10, Calf assessment: soft, non-tender, no complaints of pain Concerns: none currently Followup and plan: Continue present care as his range of motion is good make sure is not getting any pressure or friction over the wound as instructed today and follow-up in 2 weeks Carlton Horn MD documented in this encounter [facility] 10-16-2021 Miscellaneous Notes Addended by: AMBROSE DAMON on: 10/16/2021 02:27 PM Modules accepted: Orders Notified patient of refill but he said he discussed at office appt with Dr Man to take 150mg at dinner and 150mg at bedtime as he decreases the methadone. 10/05 Office note has him at 1 capsule lyrica dinner and 2 at night. Do not see Dr Man raised to 150mg and 150mg. Although listed on OV 10/12/21 in HPI :patient recently has his lyrica increased to 150mg-150mg PDMP website checked and validated. All prescriptions have been APPROPRIATELY filled. No suspicious activity was identified. 10/16/2021 by Renetta Rees APRN.MARTA Patient called to follow up on this request as he is completely out of medication. Please give him a call once script has been sent to his pharmacy. Wasn't sure if you wanted a full refill for his script or less [facility] 10/12/21 fov 12/13/21 IMPRESSION/PLAN: Severe Restless Legs Syndrome with dopaminergic augmentation Chronic Use of opiate for thereautic purpose Obstructive Sleep Apnea Syndrome Fe Deficiency Anemia Diabetes Mellitis II Obesity Continue the Methodone and Lyrica as for now. He will attempt to decrease the dose to 1ml q 8pm x 2 weeks then will attempt to discontinue it. Lyrica will remain as is for now. Cont the Vitamin D for his low vitamin D lab result. Follow up with ortho and his PCP. Follow up with me in 1 month to review his progress regarding the methodone taper. Jaden Man, , CBSM, ABSM documented in this encounter [facility] 10-12-2021 History of Present illness Narrative Images from the original note were not included. 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 Nixon in this department who has left the clinic. The patient is currently being treated with Methodone that was just decreased to 2ml and Lyrica for his severe RLS with dopaminergic augmentation. Pt has a hx of JOSÉ MIGUEL on CPAP, Obesity and Fe deficiency anemia. The patient recently had his Lyrica increased to 150mg-150mg, Methodone decreased to 2ml per night and AutoPAP continued at [id number]. His PAP is going well He has been off of work due to an achillis issue/surgery that is not healing well. He hopes to get off of the opiod before he returns to work in January. The taper of the Methodone has gone very well so far. SLEEP-WAKE SCHEDULE He is a self-described morning person. Bedtime: 11 PM. He has a hard time falling asleep. Time to fall asleep: f Wake time: 8 AM, with an alarm. After falling asleep: he does not usually wake up during the night. On weekends, he maintains the same sleep schedule. Average total sleep time (in a 24 hour period): 7 hours. SLEEP-RELATED DETAILS Preferred sleep position: side Breathing disturbances and other behaviors during sleep: moving around a lot. Bruxism: No GERD or aspiration: No Waking up with heart pounding or racing: No Anxiety or rumination: No He reports having an urge to move the legs. The urge to move the legs is worse in the evening or nighttime than during the daytime. The urge to move the legs begins or worsens during periods of rest or inactivity (e.g. lying or sitting). The urge to move the legs is partially or totally relieved by movements such as walking or stretching, at least as long as the activity continues. The urge to move the legs occurs 7 nights per week and began 5 years ago. There is history of iron deficiency or anemia. He has been told that he has leg kicking during sleep. He denies any history of parasomnias. Daytime sleepiness is not a problem. He does not report sleep paralysis or sleep-related hallucinations or cataplexy . WAKE-RELATED DETAILS He works but is not a shift worker. He does not have difficulty with memory or concentration. He denies falling asleep or dozing off when driving. He does not take naps. He does not drink caffeinated beverages. He has gained 20 pounds since 4. Patient Questionnaires Sleep Scores Sleep Questions 10/08/2021 Reason for visit: Restless Legs Syndrome Average hours slept in 24 hours: - Average hours of CPAP per night: - Percent of nights CPAP used at least 4 hours: - Accidents or near accidents due to drowsy driving: - Sullivan Sleepiness Scale 07/03/2021 10/01/2021 10/08/2021 Score 6 (No daytime sleepiness) 3 (No daytime sleepiness) 4 (No daytime sleepiness) PROMIS CAT Sleep Disturbance 05/13/2021 07/03/2021 10/01/2021 PROMIS Sleep Disturbance T-Score 31 (within normal limits) 46 (within normal limits) 54 (within normal limits) Insomnia Severity Index 08/25/2019 02/26/2020 Score 28 26 Restless Leg Syndrome 03/14/2021 07/03/2021 10/01/2021 Score 15 4 20 PHQ-9 03/14/2021 07/03/2021 10/01/2021 Score 7 0 4 PROMIS Global Health - (T-Scores - the mean of general population = 50. Five points is a clinically meaningful difference.) 12/24/2020 07/03/2021 08/08/2021 Physical T-Score 39.8 50.8 42.3 Mental T-Score 56 59 62.5 PAST TREATMENTS: See above PRIOR SLEEP STUDIES: See above OTHER RELEVANT LABS AND STUDIES: See abpve PAST MEDICAL HISTORY Diagnosis Date BPH (benign prostatic hyperplasia) Erectile dysfunction Heel spur, left Hypertension Hypertriglyceridemia Hypogonadism in male Idiopathic neuropathy Dr Soliman JOSÉ MIGUEL (obstructive sleep apnea) 08/2020 Prediabetes RLS (restless legs syndrome) PAST SURGICAL HISTORY Procedure Laterality Date APPENDECTOMY APPENDECTOMY HX ARTHROSCOPY KNEE DIAGNOSTIC W/WO SYNOVIAL BX SPX Left Arthroscopy, knee CHOLECYSTECTOMY HX HERNIA REPAIR HX Bilateral inguinal hernia, congenital NEUROPLASTY &/TRANSPOS MEDIAN NRV CARPAL TUNNE Carpal tunnel decomp bilateral PAST SURGICAL HISTORY OF 07/30/2019 repair bone spur achilles left foot SKIN BIOPSY HX TONSILLECTOMY HX TONSILLECTOMY PRIMARY/SECONDARY <AGE 11 Tonsillectomy ACTIVE PROBLEM LIST Hypertension Bph (Benign Prostatic Hyperplasia) Erectile Dysfunction Hypertriglyceridemia Hypogonadism in Male Restless Legs Syndrome (Rls) Brachial Neuritis Prediabetes Controlled Substance Agreement Signed Idiopathic Small Fiber Peripheral Neuropathy José Miguel On Cpap Obesity, Class II, Bmi 35-39.9 Shifting Sleep-Work Schedule Chronic Use of Opiate for Therapeutic Purpose Drug-Induced Constipation Air Hunger Achilles Tendinosis of Left Lower Extremity Rg's Deformity of Left Heel Calcaneal Spur of Left Foot Hematuria Allergies As of Date: 10/12/2021 (No Known Allergies) Fully Assessed 10/05/2021 CURRENT MEDICATIONS: [START ON 10/12/2021] pregabalin (LYRICA) 75 mg capsule 1 cap at dinner, 2 caps before bed Do not start before October 12, 2021. [START ON 11/05/2021] methadone 5 mg/5 mL solution Take 4 mL by mouth every evening for 30 days. For RLS-pain Do not start before November 05, 2021. methadone 5 mg/5 mL solution Take 4 mL by mouth every evening for 30 days. For RLS-pain lisinopril-hydroCHLOROthiazide (PRINZIDE,ZESTORETIC) 20-12.5 mg per tablet Take 2 tablets by mouth once daily. atorvastatin (LIPITOR) 20 mg tablet Take 1 tablet by mouth daily at bedtime. For cholesterol. testosterone cypionate (DEPO-TESTOSTERONE) 200 mg/mL injection Inject 2 mL intramuscularly every 2 weeks for 90 days. ergocalciferol 50,000 unit capsule (VITAMIN D2, DRISDOL) Take 1 capsule by mouth two times a week. on non-consecutive days Tadalafil (CIALIS) 5 mg tablet Take 1 tablet by mouth once daily. CPAP Provide lifetime supplies for AutoPAP 8-15 cm H20 including nasal pillow mask, heated tubing, humidity, filters and fax download report to assess residual AHI to [phone]. Dx: G47.33 CPAP Increase autopap pressure to 8-15 cm of water with humidification. Mask (per patient preference) optional chin strap (if indicated) , filters, tubing, humidifier and lifetime supplies. Syringe with Needle, Disp, 3 mL 25 x 1 1/2 1 Each every 2 weeks. Prior RLS Medications (last 20 years) Some values may be hidden. Unless noted otherwise, only the newest values recorded on each date are displayed. RLS Medications meperidine (PF) 12.5 mg injection (DEMEROL) Dose: 12.5 mg ONCE May Repeat 12.5 mg in 10 minutes X1 for Continued Shivering Starting date: 08/21/2021 Ending date: 08/21/2021 (Discontinued) methadone (DOLOPHINE) 5 mg tablet Dose: 2.5 mg DAILY IN THE LATE AFTERNOON For RLS-pain Starting date: 03/20/2021 Ending date: 03/26/2021 (Discontinued) methadone (DOLOPHINE) 5 mg tablet Dose: 5 mg DAILY IN THE LATE AFTERNOON For RLS-pain Starting date: 03/26/2021 Ending date: 04/18/2021 (Discontinued) methadone (DOLOPHINE) 5 mg tablet Dose: 5 mg DAILY IN THE LATE AFTERNOON For RLS-pain Starting date: 04/25/2021 Ending date: 05/16/2021 (Discontinued) methadone (DOLOPHINE) 5 mg tablet Dose: 5 mg DAILY IN THE LATE AFTERNOON For RLS-pain Starting date: 07/24/2021 Ending date: 07/06/2021 (Discontinued) methadone (DOLOPHINE) 5 mg tablet Dose: 5 mg DAILY IN THE LATE AFTERNOON For RLS-pain Starting date: 06/24/2021 Ending date: 07/06/2021 (Discontinued) methadone (DOLOPHINE) 5 mg tablet Dose: 5 mg DAILY IN THE LATE AFTERNOON For RLS-pain Starting date: 05/25/2021 Ending date: 07/06/2021 (Discontinued) methadone 5 mg/5 mL solution Dose: 4 mg q PM For RLS-pain Starting date: 07/06/2021 Ending date: 07/31/2021 (Discontinued) methadone 5 mg/5 mL solution Dose: 4 mg q PM For RLS-pain Starting date: 07/31/2021 Ending date: 09/03/2021 (Discontinued) methadone 5 mg/5 mL solution Dose: 4 mg q PM For RLS-pain Starting date: 09/03/2021 Ending date: 09/26/2021 (Discontinued) methadone 5 mg/5 mL solution Dose: 4 mg q PM For RLS-pain Starting date: 10/06/2021 Ending date: 10/05/2021 (Discontinued) methadone 5 mg/5 mL solution Dose: 4 mg q PM For RLS-pain Starting date: 11/05/2021 Ending date: 12/05/2021 methadone 5 mg/5 mL solution Dose: 4 mg q PM For RLS-pain Starting date: 10/05/2021 Ending date: 11/04/2021 oxyCODONE IR 5 mg tab(s) (ROXICODONE) Dose: 5 mg PRN Starting date: 08/21/2021 Ending date: 08/21/2021 (Discontinued) oxyCODONE IR (ROXICODONE) 5 mg immediate release tablet Dose: 5 mg q 6 H PRN for more severe postop pain after surgery. Starting date: 08/20/2021 Ending date: 08/27/2021 Pramipexole (MIRAPEX ER) 0.375 mg Tb24 Dose: 1.125 mg q PM And decrease as recommended by physician Starting date: 12/26/2020 Ending date: 03/23/2021 (Discontinued) Pramipexole (MIRAPEX ER) 1.5 mg Tb24 Dose: 1.5 mg AT BEDTIME Starting date: Ending date: 08/02/2019 (Discontinued) Pramipexole (MIRAPEX ER) 1.5 mg Tb24 Dose: 1.5 mg q PM Starting date: 12/26/2020 Ending date: 03/23/2021 (Discontinued) pramipexole (MIRAPEX) 0.5 mg tablet Dose: 0.5 mg BID (Patient taking differently: 0.5 mg BID as of 09/21/2019 8:20 AM) Starting date: 08/19/2019 Ending date: 11/16/2019 (Discontinued) rOPINIRole (REQUIP) 0.5 mg tablet Dose: 0.5 mg AT BEDTIME Starting date: 08/02/2019 Ending date: 08/04/2019 (Discontinued) rOPINIRole (REQUIP) 1 mg tablet Dose: 1 mg AT BEDTIME Starting date: 08/04/2019 Ending date: 08/19/2019 (Discontinued) rotigotine (NEUPRO) 1 mg/24 hour patch Dose: 1 Patch DAILY Starting date: 11/16/2019 Ending date: 11/29/2019 (Discontinued) rotigotine (NEUPRO) 2 mg/24 hour patch Dose: 2 mg DAILY Starting date: 11/29/2019 Ending date: 12/09/2019 (Discontinued) rotigotine (NEUPRO) 3 mg/24 hour patch Dose: 1 Patch DAILY Starting date: 12/09/2019 Ending date: 12/09/2019 (Discontinued) rotigotine (NEUPRO) 3 mg/24 hour patch Dose: 1 Patch DAILY Starting date: 12/09/2019 Ending date: 12/09/2019 (Discontinued) rotigotine (NEUPRO) 3 mg/24 hour patch Dose: 1 Patch DAILY Starting date: 12/09/2019 Ending date: 12/28/2019 (Discontinued) rotigotine (NEUPRO) 3 mg/24 hour patch Dose: 1 Patch DAILY Starting date: 12/28/2019 Ending date: 12/26/2020 (Discontinued) Medication marked as long-term Review of Systems SOCIAL HISTORY: Social History Tobacco Use Smoking status: Never Smoker Smokeless tobacco: Never Used Vaping Use Vaping Use: Never used Substance Use Topics Alcohol use: Yes Alcohol/week: 2.0 standard drinks Types: 2 Cans of beer per week Drug use: Never FAMILY HISTORY: FAMILY HISTORY Problem Relation Age of Onset COPD Mother Cancer Mother lung Heart disease Father Cancer Father lung Depression Father Anxiety disorder Father other (cancer) Father Psychiatry Brother No Known Problems Brother Heart disease Maternal Grandmother Heart disease Maternal Grandfather Heart disease Paternal Grandmother Heart disease Paternal Grandfather Multiple Sclerosis Daughter other (apraxia) Son There is no family history of sleep disorders. PHYSICAL EXAMINATION: Vital Signs: BP 148/84 (BP Site: Left Arm, BP Position: Sitting) Pulse 78 Resp 16 Ht 182.9 cm (6' 0.01) Wt 124.3 kg (274 lb) SpO2 96% BMI 37.15 kg/m PHYSICAL EXAM: General appearance: NAD AAOx3 Mental status: Neck circumference: 18 Constitutional: Pleasant and cooperative Mood is euthymic Affect is reactive Extremities: using a rolling leg assist device IMPRESSION/PLAN: Severe Restless Legs Syndrome with dopaminergic augmentation Chronic Use of opiate for thereautic purpose Obstructive Sleep Apnea Syndrome Fe Deficiency Anemia Diabetes Mellitis II Obesity Continue the Methodone and Lyrica as for now. He will attempt to decrease the dose to 1ml q 8pm x 2 weeks then will attempt to discontinue it. Lyrica will remain as is for now. Cont the Vitamin D for his low vitamin D lab result. Follow up with ortho and his PCP. Follow up with me in 1 month to review his progress regarding the methodone taper. Jaden Man DO, CBSM, ABSM documented in this encounter [facility] 10-05-2021 History of Present illness Narrative Images from the original note were not included. [facility] Follow up/ Established patient visit Visit performed virtually, with the patient's permission. Date of last visit : 07/06/2021 Per last visit: Impression/Recommendations 50 year old man with a shifting work schedule, obesity, obstructive sleep apnea on CPAP, and previously severe restless legs syndrome with dopaminergic augmentation, here for follow up for restless legs syndrome 1. Restless legs syndrome (RLS) 2. Chronic use of opiate for therapeutic purpose 3. Iron deficiency anemia, unspecified iron deficiency anemia type Clinical Global Impression of Change (CGI-C) Compared to the patient's condition at baseline, how much has the patient changed? Very much improved - The patient has restless legs syndrome with previous dopaminergic augmentation on pramipexole 1.5 mg, more than twice the maximum recommended dose. The patient successfully weaned off pramipexole, discontinuing at the beginning of January of last year with continued improvement to near resolution of symptoms now. The patient is iron levels have been relatively sufficient and he has tolerated methadone very well with only some constipation as the main side effect. The patient's IRLS SG Scale is 4 today, in the very mild range, down from a maximum of 40 and 2020 severely augmented. -We discussed a short and long-term plan. In the short run, we will recheck his iron levels to make sure they are still very strong in the serum (though brain levels could still be low) and gradually begin to taper down on the methadone as tolerated. Iron: The patient will have a morning, fasting ferritin and iron/TIBC (transferrin saturation). For restless legs syndrome, the goal for ferritin should be > 75 ng/mL and transferrin saturation > 20% to start oral iron supplementation for restless legs syndrome. The patient has had levels well above these in the past. Methadone: We discussed the transition to the syrup form of methadone so he can decrease in lower increments, and he is amenable to a decrease to 4 mL (4 mg) and every month or 2 continue to decrease by 1 mg as tolerated. -It would be ideal for the patient to be completely off methadone long-term and though pregabalin and gabapentin were ineffective in the past during augmentation, if the patient is unable to wean completely off methadone, we would then be able to cross-titrate him to gabapentin by starting gabapentin, increasing up to 600 mg with dinner and 600 mg at bedtime and then continuing to taper methadone. If gabapentin is not effective, Horizant up to 1200 mg could be tried if affordable through insurance, or pregabalin up to 300 mg. -The PDMP was reviewed and 120 mL of methadone were sent to his pharmacy. The patient may be delayed in obtaining the syrup as he just refilled the 5 mg tablet. Drug-induced constipation: We discussed moving from docusate to a bulk forming stool softener such as polyethylene glycol, methylcellulose, or psyllium husk as well as increasing cellular plant foods as part of his diet to improve bulk and motility. We would target 1 bowel movement per day as a goal. 4. JOSÉ MIGUEL on CPAP 5. Air hunger 6. Obesity, Class II, BMI 35-39.9 -The patient has obstructive sleep apnea and continues to report very good sleep quality with control of restless legs and use of CPAP nightly. -However, despite no significant weight changes, he reports air hunger on his device, which is set to 8 15 cm of water. We do not have [employer] access to the data/device, but his titration had recommended 15 cm of water so the low starting pressure may be the cause of air hunger. -We will have our clinic reach out to his [employer] company to obtain the data and we potentially could increase his pressure to something on the order of 14 18 cm of water, with EPR 3 cm of water. If the patient experiences air hunger with EPR and higher air pressures, we could consider switch to bilevel PAP but the low pressures are likely the main cause rather than the modality. - The patient will follow-up virtually with Renetta Rees APRN CNP in 3 months. I spent a total of 50 minutes on the date of the service which included preparing to see the patient, [id number] patient care, completing clinical documentation, counseling and educating the patient/family/caregiver and ordering medications, tests, or procedures. Efrain Nixon MD Interval history : Here for follow up for RLS RLS PDMP website checked and validated. All prescriptions have been APPROPRIATELY filled. No suspicious activity was identified. 10/05/2021 by Renetta Rees APRN.STOGY ROLLER Methadone syrup 4ml nightly. Has tried to drop to 3ml but has more symptoms. Has tried to do it slowly but hasn't been able to go lower. lyrica 75mg, how many tabs taking 150 mg - no side effects with it. -RLS kicks in 1 hour after he lays down -had surgery on his achilles 08/21/2021. Still not weight bearing. Reports surgical wound looks like blood blister -reports pain is fine, foot feels stiff, heavy. Reports no pain at the incision Taking Citrucel to help with constipation from methadone and miralax prn Pramipexole discontinued 01/2021 Ferritin Date Value Ref Range Status 07/06/2021 308.0 30.3 - 565.7 ng/mL Final 01/02/2021 378.0 30.3 - 565.7 ng/mL Final 08/02/2019 280.0 30.3 - 565.7 ng/mL Final Transferrin Saturation Date Value Ref Range Status 07/06/2021 37 15 - 57 % Final 01/02/2021 44 15 - 57 % Final 08/02/2019 23 15 - 57 % Final Hemoglobin Date Value Ref Range Status 07/06/2021 16.7 13.0 - 17.0 g/dL Final 02/15/2020 16.6 13.0 - 17.0 g/dL Final Averaging 6 hours of sleep at night. Has been off work for surgery. 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 Sleep Questions 10/01/2021 Reason for visit: Restless Legs Syndrome Average hours slept in 24 hours: 6 Average hours of CPAP per night: 6 Percent of nights CPAP used at least 4 hours: 100 Accidents or near accidents due to drowsy drivin Sullivan Sleepiness Scale 05/13/2021 07/03/2021 10/01/2021 Score 2 (No daytime sleepiness) 6 (No daytime sleepiness) 3 (No daytime sleepiness) PROMIS CAT Sleep Disturbance 05/13/2021 07/03/2021 10/01/2021 PROMIS Sleep Disturbance T-Score 31 (within normal limits) 46 (within normal limits) 54 (within normal limits) Insomnia Severity Index 08/25/2019 02/26/2020 Score 28 26 Restless Leg Syndrome 03/14/2021 07/03/2021 10/01/2021 Score 15 4 20 PHQ-9 03/14/2021 07/03/2021 10/01/2021 Score 7 0 4 PROMIS Global Health - (T-Scores - the mean of general population = 50. Five points is a clinically meaningful difference.) 12/24/2020 07/03/2021 08/08/2021 Physical T-Score 39.8 50.8 42.3 Mental T-Score 56 59 62.5 PMH, PSH, SH: reviewed SLEEP RELATED ROS Review of Systems Constitutional: Negative for recent unintentional weight change. Gastrointestinal: Negative for constipation. Musculoskeletal: Positive for uncomfortable leg sensations. Skin: Negative for rash. Neurological: Positive for dizziness. ALLERGIES No Known Allergies CURRENT MEDICATIONS: [START ON 10/06/2021] methadone 5 mg/5 mL solution Take 4 mL by mouth every evening for 30 days. For RLS-pain Do not start before October 06, 2021. pregabalin (LYRICA) 75 mg capsule Take 2 capsules by mouth every evening for 90 days. And increase per physician instructions lisinopril-hydroCHLOROthiazide (PRINZIDE,ZESTORETIC) 20-12.5 mg per tablet Take 2 tablets by mouth once daily. atorvastatin (LIPITOR) 20 mg tablet Take 1 tablet by mouth daily at bedtime. For cholesterol. testosterone cypionate (DEPO-TESTOSTERONE) 200 mg/mL injection Inject 2 mL intramuscularly every 2 weeks for 90 days. ergocalciferol 50,000 unit capsule (VITAMIN D2, DRISDOL) Take 1 capsule by mouth two times a week. on non-consecutive days Tadalafil (CIALIS) 5 mg tablet Take 1 tablet by mouth once daily. CPAP Provide lifetime supplies for AutoPAP 8-15 cm H20 including nasal pillow mask, heated tubing, humidity, filters and fax download report to assess residual AHI to [phone]. Dx: G47.33 CPAP Increase autopap pressure to 8-15 cm of water with humidification. Mask (per patient preference) optional chin strap (if indicated) , filters, tubing, humidifier and lifetime supplies. Syringe with Needle, Disp, 3 mL 25 x 1 1/2 1 Each every 2 weeks. PHYSICAL EXAMINATION: Vital Signs: Deferred due to virtual visit via Zoom. General appearance: NAD Mental status: awake and alert Constitutional: Well groomed Skin: Dry and intact Neuro: Speech fluent IMPRESSION: Restless legs syndrome (rls) Nancy Enamorado is a 50 year old male with a PMH of HTN, hypogonadism, prediabetes, and class II obesity who presents via zoom for RLS and JOSÉ MIGUEL follow up. A Home Sleep Test (HST) performed on 09/02/2020 revealed severe JOSÉ MIGUEL (AHI of 36.6) that was associated with a minimum oxygen saturation of 71%. A PAP titration study completed on 09/29/2020 showed that a setting of [id number] normalized the AHI and eliminated snoring. REM sleep without atonia noted. -Mr. Enamorado reports some increase in symptoms with his RLS. He had Achilles tendon surgery on 08/21/2021 and reports some increase in symptoms since that time. He's been non-weight bearing since that time. He's been trying to step down on the methadone but reports hasn't been able to go below 4 ml/night. His IRLS SG score is 20 today up from 4 at last visit in June. He's taking two lyrica (150mg total) prior to bed. Will have him start 1 cap at dinner and continue with the 2 prior to bed to see if he can continue to decrease on the methadone. His goal is to d/c methadone entirely. He denies side effects from medications besides slight constipation that he's managing with Citrucel and miralax prn. -He reports autopap therapy remains good. Denies problems, is compliant and benefitits. PLAN: -Increase lyrica to 1 cap at dinner and 2 caps before bed. Updated script sent -Continue methadone 4 ml per night. Can continue to wean down if able -Continue autopap [id number] -Follow up with sleep physician to establish care. Scripts will be bridged until he can see new sleep drJeff Rees APRN.STOGY ROLLER documented in this encounter [facility] 10-02-2021 History of Present illness Narrative POD 6 weeks Surgery: left secondary achilles repair with flexor hallucis longus tendon transfer, harvesting and tendon transfer plantaris tendon, excision of Rg's deformity, surgeon monitored fluoroscopy on 08/21/21 Same dried area distal incision continues to shrink in diameter slowly Dressings: ds over wound Incision: dry/intact/well-approximated, no redness Sutures: NA Drain: NA Pin sites: NA Left achilles pain: 0/10 Calf assessment: soft, non-tender, no complaints of pain Concerns: none currently Followup and plan: Acute on range of motion exercises. We will spend as much time out of the splint as possible. Nonweightbearing and follow-up in 2 weeks Carlton Horn MD documented in this encounter [facility] 09-27-2021 Miscellaneous Notes PDMP website checked and validated. All prescriptions have been APPROPRIATELY filled. No suspicious activity was identified. 09/27/2021 by Renetta Rees APRN.STOGY ROLLER Images from the original note were not included. Last OV: 07/06/[address] Nixon Future OV: 10/05/[address] Rees Impression/Recommendations 50 year old man with a shifting work schedule, obesity, obstructive sleep apnea on CPAP, and previously severe restless legs syndrome with dopaminergic augmentation, here for follow up for restless legs syndrome 1. Restless legs syndrome (RLS) 2. Chronic use of opiate for therapeutic purpose 3. Iron deficiency anemia, unspecified iron deficiency anemia type Clinical Global Impression of Change (CGI-C) Compared to the patient's condition at baseline, how much has the patient changed? Very much improved - The patient has restless legs syndrome with previous dopaminergic augmentation on pramipexole 1.5 mg, more than twice the maximum recommended dose. The patient successfully weaned off pramipexole, discontinuing at the beginning of January of last year with continued improvement to near resolution of symptoms now. The patient is iron levels have been relatively sufficient and he has tolerated methadone very well with only some constipation as the main side effect. The patient's IRLS SG Scale is 4 today, in the very mild range, down from a maximum of 40 and 2020 severely augmented. -We discussed a short and long-term plan. In the short run, we will recheck his iron levels to make sure they are still very strong in the serum (though brain levels could still be low) and gradually begin to taper down on the methadone as tolerated. Iron: The patient will have a morning, fasting ferritin and iron/TIBC (transferrin saturation). For restless legs syndrome, the goal for ferritin should be > 75 ng/mL and transferrin saturation > 20% to start oral iron supplementation for restless legs syndrome. The patient has had levels well above these in the past. Methadone: We discussed the transition to the syrup form of methadone so he can decrease in lower increments, and he is amenable to a decrease to 4 mL (4 mg) and every month or 2 continue to decrease by 1 mg as tolerated. -It would be ideal for the patient to be completely off methadone long-term and though pregabalin and gabapentin were ineffective in the past during augmentation, if the patient is unable to wean completely off methadone, we would then be able to cross-titrate him to gabapentin by starting gabapentin, increasing up to 600 mg with dinner and 600 mg at bedtime and then continuing to taper methadone. If gabapentin is not effective, Horizant up to 1200 mg could be tried if affordable through insurance, or pregabalin up to 300 mg. -The PDMP was reviewed and 120 mL of methadone were sent to his pharmacy. The patient may be delayed in obtaining the syrup as he just refilled the 5 mg tablet. Drug-induced constipation: We discussed moving from docusate to a bulk forming stool softener such as polyethylene glycol, methylcellulose, or psyllium husk as well as increasing cellular plant foods as part of his diet to improve bulk and motility. We would target 1 bowel movement per day as a goal. 4. JOSÉ MIGUEL on CPAP 5. Air hunger 6. Obesity, Class II, BMI 35-39.9 -The patient has obstructive sleep apnea and continues to report very good sleep quality with control of restless legs and use of CPAP nightly. -However, despite no significant weight changes, he reports air hunger on his device, which is set to 8 15 cm of water. We do not have [employer] access to the data/device, but his titration had recommended 15 cm of water so the low starting pressure may be the cause of air hunger. -We will have our clinic reach out to his [employer] company to obtain the data and we potentially could increase his pressure to something on the order of 14 18 cm of water, with EPR 3 cm of water. If the patient experiences air hunger with EPR and higher air pressures, we could consider switch to bilevel PAP but the low pressures are likely the main cause rather than the modality. - The patient will follow-up virtually with Renetta Rees APRN CNP in 3 months. I spent a total of 50 minutes on the date of the service which included preparing to see the patient, [id number] patient care, completing clinical documentation, counseling and educating the patient/family/caregiver and ordering medications, tests, or procedures. Efrain Nixon MD Note Physician: Dr. Nixon Call from patient requesting refill. Please E-Scribe Last OV: 07/06/[address] Nixon Future OV: 10/05/[address] Rees Pending Prescriptions Disp Refills PREGABALIN 75 MG CAPSULE 60 capsule 2 Sig: Take 2 capsules by mouth every evening for 90 days. And increase per physician instructions ZION Class: C-V ESSIE: No METHADONE 5 MG/5 ML ORAL SOLUTION 120 mL 0 Sig: Take 4 mL by mouth every evening for 30 days. For RLS-pain ZION Class: C-II ESSIE: No Pharmacy Name: [facility] [address] [place] [address] - [address] [facility] [phone] [id number] [address] PATIENT IS OUT OF MEDS. documented in this encounter [facility] 09-25-2021 Miscellaneous Notes PDMP reviewed. Increasing Lyrica to 150 mg every evening with 4 mL of methadone. #60, 2 refills. Meliton Nixon MD Images from the original note were not included. I need more Lyrica please. I am currently taking 3ml of methadone and 150 mg of Lyrica. I tried to do less Methadone but had RLS issues and may need more Lyrica. Please advise. swapna 07/06/21 fov 10/05/21 Impression/Recommendations 50 year old man with a shifting work schedule, obesity, obstructive sleep apnea on CPAP, and previously severe restless legs syndrome with dopaminergic augmentation, here for follow up for restless legs syndrome 1. Restless legs syndrome (RLS) 2. Chronic use of opiate for therapeutic purpose 3. Iron deficiency anemia, unspecified iron deficiency anemia type Clinical Global Impression of Change (CGI-C) Compared to the patient's condition at baseline, how much has the patient changed? Very much improved - The patient has restless legs syndrome with previous dopaminergic augmentation on pramipexole 1.5 mg, more than twice the maximum recommended dose. The patient successfully weaned off pramipexole, discontinuing at the beginning of January of last year with continued improvement to near resolution of symptoms now. The patient is iron levels have been relatively sufficient and he has tolerated methadone very well with only some constipation as the main side effect. The patient's IRLS SG Scale is 4 today, in the very mild range, down from a maximum of 40 and 2020 severely augmented. -We discussed a short and long-term plan. In the short run, we will recheck his iron levels to make sure they are still very strong in the serum (though brain levels could still be low) and gradually begin to taper down on the methadone as tolerated. Iron: The patient will have a morning, fasting ferritin and iron/TIBC (transferrin saturation). For restless legs syndrome, the goal for ferritin should be > 75 ng/mL and transferrin saturation > 20% to start oral iron supplementation for restless legs syndrome. The patient has had levels well above these in the past. Methadone: We discussed the transition to the syrup form of methadone so he can decrease in lower increments, and he is amenable to a decrease to 4 mL (4 mg) and every month or 2 continue to decrease by 1 mg as tolerated. -It would be ideal for the patient to be completely off methadone long-term and though pregabalin and gabapentin were ineffective in the past during augmentation, if the patient is unable to wean completely off methadone, we would then be able to cross-titrate him to gabapentin by starting gabapentin, increasing up to 600 mg with dinner and 600 mg at bedtime and then continuing to taper methadone. If gabapentin is not effective, Horizant up to 1200 mg could be tried if affordable through insurance, or pregabalin up to 300 mg. -The PDMP was reviewed and 120 mL of methadone were sent to his pharmacy. The patient may be delayed in obtaining the syrup as he just refilled the 5 mg tablet. Drug-induced constipation: We discussed moving from docusate to a bulk forming stool softener such as polyethylene glycol, methylcellulose, or psyllium husk as well as increasing cellular plant foods as part of his diet to improve bulk and motility. We would target 1 bowel movement per day as a goal. 4. JOSÉ MIGUEL on CPAP 5. Air hunger 6. Obesity, Class II, BMI 35-39.9 -The patient has obstructive sleep apnea and continues to report very good sleep quality with control of restless legs and use of CPAP nightly. -However, despite no significant weight changes, he reports air hunger on his device, which is set to 8 15 cm of water. We do not have AirView access to the data/device, but his titration had recommended 15 cm of water so the low starting pressure may be the cause of air hunger. -We will have our clinic reach out to his [employer] company to obtain the data and we potentially could increase his pressure to something on the order of 14 18 cm of water, with EPR 3 cm of water. If the patient experiences air hunger with EPR and higher air pressures, we could consider switch to bilevel PAP but the low pressures are likely the main cause rather than the modality. - The patient will follow-up virtually with Renetta Rees APRN CNP in 3 months. I spent a total of 50 minutes on the date of the service which included preparing to see the patient, [id number] patient care, completing clinical documentation, counseling and educating the patient/family/caregiver and ordering medications, tests, or procedures. Efrain Nixon MD N documented in this encounter [facility] 09-21-2021 History of Present illness Narrative POD 4 weeks Surgery: left secondary achilles repair with flexor hallucis longus tendon transfer, harvesting and tendon transfer plantaris tendon, excision of Rg's deformity, surgeon monitored fluoroscopy on 08/21/21 Continues dressing changes daily, he puts a medicated burn pad on it at night Dressings: Dry today Incision: The swelling is down. The eschar is smaller, and is no signs of infection Sutures: intact Drain: NA Pin sites: NA Left achilles/ankle pain: 0/10 Calf assessment: soft, non-tender, no complaints of pain Concerns: none currently Followup and plan: Continue current dressing changes and bivalved cast follow-up in 5 days Carlton Horn MD documented in this encounter [facility] 09-11-2021 History of Present illness Narrative POD #22 Surgery: left secondary achilles repair with flexor hallucis longus tendon transfer, harvesting and tendon transfer plantaris tendon, excision of Rg's deformity, surgeon monitored fluoroscopy on 08/21/21 Dressings: dsd over distal incision Incision: dry/intact/well-approximated, no redness , swelling and discoloration or decreased Sutures: Intact Drain: NA Pin sites: NA Left achilles/ankle pain: 0-1/10 Calf assessment: soft, non-tender, no complaints of pain Concerns: none currently Followup and plan: Continue Skin-Prep and current dressing changes. Continue bivalve and nonweightbearing and follow-up in 1 week Carlton Horn MD documented in this encounter [facility] 09-11-2021 Procedure note Procedure(s): CYSTOSCOPY Pre-Procedure Diagnose(s): Microhematuria Post-Procedure Diagnose(s): Microhematuria CYSTOSCOPY PROCEDURE NOTE: Nancy Enamorado is a 50 year old male who presents with hematuria gross for cystoscopy. Pt ID verified with patient: Yes Procedure verified with patient: Yes Procedure confirmed with physician and administrative support assoc: Yes Sign In History and Physical Exam reviewed and is unchanged. . Informed Consent Discussed: Yes. Risks, benefits, alternatives and personnel discussed with patient who consents to proceed. Sign in Communication: Completed Time Out: Team Confirms the Correct Patient, Correct Procedure; Cystoscopy, Correct Site and Site Marking, Correct Position (if applicable). Affirmation of Time Out: Yes Sign Out: Sign Out Discussion: Completed Physician: Omar Miller DO A urinalysis was performed revealing no evidence of infection. The benefits, risks, alternatives of the cystoscopy procedure and personnel were discussed with the patient. The verbal consent was obtained and the patient agrees to proceed. Procedure: The patient was placed on the procedure table in the supine position and prepped and draped in the usual sterile fashion. 2% Lidocaine Jelly was placed per urethra as an anesthetic in the standard fashion. Once adequate local anesthesia was achieved, the tip of the flexible cystoscope was carefully placed into the urethra under direct visual guidance. The scope was negotiated through the pendulous urethra to the level of the bulbar urethra with no evidence of stricture. The verumontanum came into view and the scope was negotiated through the prostatic urethra which showed evidence of bi lobar occlusive disease. The bladder was entered and careful evans endoscopy was carried out. The posterior, superior and lateral cummings and dome of the bladder were all well visualized and the scope was retroflexed upon itself. The findings were consistent with no evidence of bladder mucosal pathology. At the conclusion of the procedure, the flexible cystoscope was removed atraumatically. The patient tolerated the procedure without complications. Patient was given standard post-procedure instructions, and was directed to complete the course of oral antibiotics and increase oral fluid intake as directed. ASSESSMENT/PLAN: Microhematuria. Negative CT urogram. Negative cytology. Negative cystoscopy today. F/U PRN Omar Miller DO documented in this encounter [facility] 08-21-2021 Note HNO ID: [id number] Author: Sunil Vera MD Service: Anesthesiology Author Type: Anesthesiologist Type: Anesthesia Procedure Notes Filed: 08/21/2021 11:11 AM Note Text: ANESTHESIOLOGY PROCEDURE NOTE Peripheral Nerve Block General Information Procedure Start Time/Medication Administration: 08/21/2021 11:01 AM Procedure End time: 08/21/2021 11:03 AM Patient location during procedure: PACU Timeout Performed Pre-procedure: timeout performed (1101) Consent Obtained: Yes Patient identity confirmed: arm band, patient and care steamer blocker Reason for block: post-op pain management/at surgeon's request Staffing Anesthesiologist: Sunil Vera MD Performed by: anesthesiologist Preparation Sterility Preparation: hand hygiene performed prior to procedure, surgical cap used, mask used, sterile drape used during line insertion, skin prep agent completely dried prior to procedure Site Prep: Chloraprep Pre-Procedure Neuro Exam Location: LLE Sensory: intact Motor: intact Procedure Details Patient Position: supine Monitoring: Pulse OX, EKG and NIBP Block Type Lower Extremity: distal femoral (adductor canal) Laterality: left Injection Technique: single-shot Ultrasound Guided: Yes Image in Chart: yes Local Infiltration: Yes Needle Needle Type: echogenic Needle Gauge: 21 G Needle Length: 10 cm Needle Localization: ultrasound Assessment Injection assessment: negative aspiration, no paresthesia on injection, incremental injection and local visualized surrounding nerve on ultrasound Post-Procedure Neuro Exam Expected Regional Anesthesia: Yes Medications Administered Dexamethasone sodium phosphate injection (DECADRON), 4 mg ropivacaine (PF) 5 mg/mL (0.5 %) injection (NAROPIN), 20 mL Comments C/o saphenous dermatome pain 6/10 in PACU SIGNATURE: Sunil Vera MD PATIENT NAME: Nancy Enamorado DATE: August 21, 2021 TIME: 11:09 AM CSN: [id number] [facility] 08-21-2021 Note HNO ID: [id number] Author: Nisha Lerma RN Service: Nursing Author Type: Registered Nurse Type: Nursing Progress Note Filed: 08/21/2021 1:21 PM Note Text: Left adductor canal block performed at bedside. vss throughout. [facility] 08-21-2021 Note HNO ID: [id number] Author: Nisha Lerma RN Service: Nursing Author Type: Registered Nurse Type: Nursing Progress Note Filed: 08/21/2021 1:16 PM Note Text: Patient complaining of sharp left heel pain. Dr Vera here to evaluate patient. [facility] 08-21-2021 Note HNO ID: [id number] Author: Venessa Morales APRN.ANCHOR TACK PULLER Service: Anesthesiology Author Type: Nurse Risk Control Analyst Type: Anesthesia Procedure Notes Filed: 08/21/2021 7:57 AM Note Text: ANESTHESIOLOGY PROCEDURE NOTE Airway General Information Procedure Start Time/Medication Administration: 08/21/2021 7:40 AM Patient location during procedure: OR Timeout Performed Pre-procedure: timeout performed Consent Obtained: Yes Patient identity confirmed: arm band and patient Staffing Anesthesiologist: Sunil Vera MD ANCHOR TACK PULLER: Venessa Morales APRN.ANCHOR TACK PULLER Performed by: KATHI Indications and Patient Condition Preoxygenated: yes Patient position: sniffing Manual In-Line Stabilization: No Difficult Mask: No Indications for airway management: anesthesia anesthesia circuit Method: asleep Cricoid Pressure: No Final Airway Details Final airway type: endotracheal airway Final Endotracheal Airway: ETT Cuffed: yes Successful intubation technique: direct laryngoscopy Devices used: HelloFresh Endotracheal tube insertion site: oral Blade size: #4 ETT size (mm): 8.0 Measured from: lips Measurement (cm): 23 Placement verified by: chest auscultation and capnometry Cormack-Lehane Classification: grade IIa - partial view of glottis Number of attempts at approach: 2 Ventilation between attempts: BVM Other Attempts Unsuccessful attempted endotracheal techniques: direct laryngoscopy Failed airway: no Unrecognized esophageal intubation: no Airway not difficult Comments Attempt #1 with mac 4 grade 3 view unsucessful SIGNATURE: Venessa Morales APRN.ANCHOR TACK PULLER PATIENT NAME: Nancy Enamorado DATE: August 21, 2021 TIME: 7:56 AM CSN: [id number] [facility] 08-21-2021 Note HNO ID: [id number] Author: Sunil Vera MD Service: Anesthesiology Author Type: Anesthesiologist Type: Anesthesia Procedure Notes Filed: 08/21/2021 12:14 PM Note Text: ANESTHESIOLOGY PROCEDURE NOTE Peripheral Nerve Block General Information Procedure Start Time/Medication Administration: 08/21/2021 6:41 AM Procedure End time: 08/21/2021 6:55 AM Patient location during procedure: pre-op Timeout Performed Pre-procedure: timeout performed (0647) Consent Obtained: Yes Patient identity confirmed: arm band, patient and care steamer blocker Reason for block: post-op pain management/at surgeon's request Staffing Anesthesiologist: Sunil Vera MD Performed by: anesthesiologist Preparation Sterility Preparation: hand hygiene performed prior to procedure, sterile gloves, drapes, and procedure tray, surgical cap used, mask used, sterile drape used during line insertion, skin prep agent completely dried prior to procedure Site Prep: Chloraprep Pre-Procedure Neuro Exam Location: LLE Sensory: intact Motor: intact Procedure Details Patient Position: right lateral decubitus Monitoring: Pulse OX and NIBP Block Type Lower Extremity: sciatic Approach: popliteal fossa and lateral Laterality: left Injection Technique: catheter Ultrasound Guided: Yes Image in Chart: yes Local Infiltration: Yes Needle Needle Type: echogenic and Tuohy Needle Gauge: 18 G Needle Length: 90 mm Needle Localization: ultrasound Catheter Type: E-Cath Plus Catheter Size: 20 G Assessment Injection assessment: negative aspiration, no paresthesia on injection, incremental injection and local visualized surrounding nerve on ultrasound Paresthesia: none Post-Procedure Neuro Exam Expected Regional Anesthesia: Yes Medications Administered Dexamethasone sodium phosphate injection (DECADRON), 10 mg midazolam (PF) injection (VERSED), 2 mg ropivacaine (PF) 5 mg/mL (0.5 %) injection (NAROPIN), 20 mL Comments He is still c/o pain after adductor canal block. I replaced the popliteal catheter and administered Ropivacaine 0.5% 10 ml with immediate relief. SI 1152 TO 1157 SO 1206 SIGNATURE: Sunil Vera MD PATIENT NAME: Nancy Enamorado DATE: August 21, 2021 TIME: 7:02 AM CSN: [id number] [facility] 07-16-2021 Miscellaneous Notes Pt called and made aware. Angela Cespedes LPN Increase testosterone to 300 mg every 2 weeks. Recheck level in 2 months. Pt called and updated. Pt voiced he did get this drawn one week after his injection. Angela Cespedes LPN Patient's testosterone level is low. Please confirm with patient that he got this drawn 1 week after his injection. If so, will increase dosage and recheck level in 1-2 months. A1C still in prediabetic range at 6. Recommend low carb diet and exercise. All other labs normal. documented in this encounter [facility] 05-08-2020 History of Present illness Narrative Radiology Service Progress Note PATIENT NAME: Nancy Enamorado DATE OF SERVICE: May 08, 2020 TIME: 2:08 PM PATIENT IDENTITY VERIFICATION COMPLETED USING TWO (2) IDENTIFIERS: Name and Date of confirmed by patient verbally. FALL SCREENING: Has the patient had 2 falls in the last year or 1 fall with injury or currently using an Ambulatory Assistive Device (Walker, Cane, Wheelchair, Crutches, etc.)? No PATIENT GENDER DATA: Male PATIENT RELEVANT IMPLANT DATA REVIEWED: Not Applicable RADIOLOGY DEPARTMENT: General X-ray: Exam(s) Completed: Spine X-Ray(s): Cervical AP / LAT / OBL PERIPHERAL IV DATA: Not applicable SIGNED BY: Meche Kyle May 08, 2020 2:08 PM documented in this encounter [facility] Evaluation note Diagnosis Achilles tendinosis of left lower extremity- Primary [facility] Diagnosis Benign prostatic hyperplasia, unspecified whether lower urinary tract symptoms present- Primary Hypogonadism in male Microhematuria Microscopic hematuria [facility] Diagnosis Achilles tendinosis of left lower extremity- Primary [facility] Diagnosis Restless legs syndrome (RLS) [facility] Diagnosis Restless legs syndrome (RLS) Chronic use of opiate for therapeutic purpose [facility] Restless legs syndrome (RLS) Chronic use of opiate for therapeutic purpose [facility] Diagnosis RLS (restless legs syndrome)- Primary Restless legs syndrome (RLS) [facility] Diagnosis Restless legs syndrome (RLS) [facility] Diagnosis Achilles tendinosis of left lower extremity- Primary [facility] Diagnosis Achilles tendinosis of left lower extremity- Primary [facility] Diagnosis Achilles tendinosis of left lower extremity- Primary [facility] Diagnosis Thrombosed hemorrhoids- Primary Unspecified thrombosed hemorrhoids [facility] Diagnosis External hemorrhoid, thrombosed- Primary External thrombosed hemorrhoids [facility] Diagnosis Thrombosed hemorrhoids Unspecified thrombosed hemorrhoids [facility] Diagnosis Status post Achilles tendon repair- Primary Other postprocedural status [facility] Diagnosis Hypogonadism in male [facility] Diagnosis Annual physical exam- Primary Routine general medical examination at a health care facility Hypogonadism in male Erythrocytosis Polycythemia, secondary Dermatitis Contact dermatitis and other eczema, due to unspecified cause Prediabetes Other abnormal glucose Essential hypertension Unspecified essential hypertension Hypertriglyceridemia Pure hyperglyceridemia Erectile dysfunction, unspecified erectile dysfunction type JOSÉ MIGUEL on CPAP Obstructive sleep apnea (adult) (pediatric) RLS (restless legs syndrome) Restless legs syndrome (RLS) S/P Achilles tendon repair Other postprocedural status Arthralgia, unspecified joint [facility] Restless legs syndrome (RLS) [facility] Diagnosis Elevated hemoglobin (HCC)- Primary Other hemoglobinopathies [facility] Diagnosis Restless legs syndrome (RLS)- Primary Chronic use of opiate for therapeutic purpose JOSÉ MIGUEL on CPAP Obstructive sleep apnea (adult) (pediatric) Iron deficiency anemia, unspecified iron deficiency anemia type Prediabetes Other abnormal glucose Primary hypertension Unspecified essential hypertension Hypogonadism in male Idiopathic small fiber peripheral neuropathy Hypertriglyceridemia Pure hyperglyceridemia Benign prostatic hyperplasia, unspecified whether lower urinary tract symptoms present [facility] Diagnosis Elevated testosterone level- Primary [facility] Diagnosis Elevated hemoglobin (HCC)- Primary Other hemoglobinopathies [facility] Diagnosis Restless legs syndrome (RLS) [facility] Diagnosis Primary hypertension Unspecified essential hypertension [facility] Diagnosis Restless legs syndrome (RLS) [facility] Diagnosis Hypogonadism in male- Primary Primary hypertension Unspecified essential hypertension Current moderate episode of major depressive disorder without prior episode (HCC) Prediabetes Other abnormal glucose [facility] Diagnosis JOSÉ MIGUEL on CPAP- Primary Obstructive sleep apnea (adult) (pediatric) Restless legs syndrome (RLS) Chronic use of opiate for therapeutic purpose Idiopathic small fiber peripheral neuropathy Benign prostatic hyperplasia, unspecified whether lower urinary tract symptoms present Hypertriglyceridemia Pure hyperglyceridemia Iron deficiency anemia, unspecified iron deficiency anemia type Primary hypertension Unspecified essential hypertension Obesity, Class II, BMI 35-39.9 Obesity, unspecified [facility] Diagnosis Vitamin D deficiency- Primary Unspecified vitamin D deficiency Diabetes mellitus type II (HCC) Hypogonadism in male [facility] Diagnosis Diabetes mellitus type II (HCC)- Primary Oswald's palsy [facility] Diagnosis Restless legs syndrome (RLS) [facility] Diagnosis Erectile dysfunction, unspecified erectile dysfunction type [facility] Diagnosis Restless legs syndrome (RLS)- Primary JOSÉ MIGUEL on CPAP Obstructive sleep apnea (adult) (pediatric) [facility] prescription opiate use [facility] Diagnosis Current moderate episode of major depressive disorder without prior episode (HCC) Diabetes mellitus type II (HCC) [facility] Diagnosis Hypogonadism in male [facility] Diagnosis Restless legs syndrome (RLS) [facility] Diagnosis JOSÉ MIGUEL (obstructive sleep apnea)- Primary Obstructive sleep apnea (adult) (pediatric) Intolerance of continuous positive airway pressure (CPAP) ventilation Restless legs syndrome (RLS) Encounter for long-term opiate analgesic use Encounter for long-term (current) use of other medications [facility] Diagnosis Annual physical exam- Primary Routine general medical examination at a health care facility Rectal bleeding Hemorrhage of rectum and anus Lump of skin of back Localized superficial swelling, mass, or lump Encounter for immunization Need for other specified prophylactic vaccination against single bacterial disease Hypogonadism in male Type 2 diabetes mellitus without complication, without long-term current use of insulin (HCC) JOSÉ MIGUEL on CPAP Obstructive sleep apnea (adult) (pediatric) Essential hypertension Unspecified essential hypertension Arthralgia, unspecified joint Hypertriglyceridemia Pure hyperglyceridemia Major depressive disorder, remission status unspecified, unspecified whether recurrent [facility] Diagnosis JOSÉ MIGUEL (obstructive sleep apnea)- Primary Obstructive sleep apnea (adult) (pediatric) [facility] Diagnosis Restless legs syndrome (RLS)- Primary [facility] Diagnosis Lipoma of right shoulder Lipoma of other specified sites [facility] Diagnosis Type 2 diabetes mellitus without complication, without long-term current use of insulin (HCC) Hypogonadism in male Lipoma of other specified sites [facility] Diagnosis Restless legs syndrome (RLS) Lipoma of other specified sites [facility] Diagnosis Back spasm- Primary Other symptoms referable to back Lipoma of other specified sites [facility] Diagnosis Restless legs syndrome (RLS)- Primary [facility] prescription opiate use JOSÉ MIGUEL on CPAP Obstructive sleep apnea (adult) (pediatric) Dry mouth Disturbance of salivary secretion Lipoma of other specified sites [facility] Diagnosis Type 2 diabetes mellitus without complication, without long-term current use of insulin (HCC) Lipoma of other specified sites [facility] Diagnosis Essential hypertension- Primary Unspecified essential hypertension Hypertriglyceridemia Pure hyperglyceridemia JOSÉ MIGUEL on CPAP Obstructive sleep apnea (adult) (pediatric) Major depressive disorder, remission status unspecified, unspecified whether recurrent Type 2 diabetes mellitus without complication, without long-term current use of insulin ([facility]) Encounter for screening fecal occult blood testing Special screening for malignant neoplasms, colon [facility] Diagnosis Restless legs syndrome (RLS)- Primary JOSÉ MIGUEL on CPAP Obstructive sleep apnea (adult) (pediatric) 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 [facility] Diagnosis Hypogonadism in male [facility] Diagnosis Nausea- Primary Nausea alone Diaphoresis Generalized hyperhidrosis Dizziness Dizziness and giddiness [facility] Diagnosis Abnormal chest x-ray- Primary Other nonspecific abnormal finding of lung field [facility] Diagnosis JOSÉ MIGUEL on CPAP- Primary Obstructive sleep apnea (adult) (pediatric) Restless legs syndrome (RLS) 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 [facility] Diagnosis Bronchiolitis- Primary Acute bronchiolitis due to other infectious organisms Lung nodules Other nonspecific abnormal finding of lung field [facility] Diagnosis Abnormal chest x-ray with multiple lung nodules- Primary Other nonspecific abnormal finding of lung field Abnormal chest x-ray with multiple lung nodules Other nonspecific abnormal finding of lung field [facility] Obstructive sleep apnea- Primary Obstructive sleep apnea (adult) (pediatric) [facility] Restless legs syndrome (RLS) 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 [facility] Diagnosis Lung nodules- Primary Other nonspecific abnormal finding of lung field 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 Bronchiolitis Acute bronchiolitis due to other infectious organisms [facility] Diagnosis Restless legs syndrome (RLS) 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 [facility] Diagnosis Erectile dysfunction, unspecified erectile dysfunction type [facility] Diagnosis Pre-operative examination- Primary Preoperative examination, unspecified Achilles tendinosis of left lower extremity Primary hypertension Unspecified essential hypertension Hypertriglyceridemia Pure hyperglyceridemia JOSÉ MIGUEL on CPAP Obstructive sleep apnea (adult) (pediatric) Prediabetes Other abnormal glucose Restless legs syndrome (RLS) Hematuria, unspecified type Benign prostatic hyperplasia with nocturia Obesity, Class II, BMI 35-39.9 Obesity, unspecified Abnormal chest x-ray with multiple lung nodules Other nonspecific abnormal finding of lung field [facility] Diagnosis Pre-operative examination- Primary Preoperative examination, unspecified Achilles tendinosis of left lower extremity Primary hypertension Unspecified essential hypertension Hypertriglyceridemia Pure hyperglyceridemia JOSÉ MIGUEL on CPAP Obstructive sleep apnea (adult) (pediatric) Prediabetes Other abnormal glucose Restless legs syndrome (RLS) Hematuria, unspecified type Benign prostatic hyperplasia with nocturia Obesity, Class II, BMI 35-39.9 Obesity, unspecified Nausea Nausea alone Diaphoresis Generalized hyperhidrosis [facility] Diagnosis Pre-operative examination- Primary Preoperative examination, unspecified Achilles tendinosis of left lower extremity Primary hypertension Unspecified essential hypertension Hypertriglyceridemia Pure hyperglyceridemia JOSÉ MIGUEL on CPAP Obstructive sleep apnea (adult) (pediatric) Prediabetes Other abnormal glucose Restless legs syndrome (RLS) Hematuria, unspecified type Benign prostatic hyperplasia with nocturia Obesity, Class II, BMI 35-39.9 Obesity, unspecified Abnormal chest x-ray Other nonspecific abnormal finding of lung field [facility] Diagnosis Pre-operative examination- Primary Preoperative examination, unspecified Achilles tendinosis of left lower extremity Primary hypertension Unspecified essential hypertension Hypertriglyceridemia Pure hyperglyceridemia JOSÉ MIGUEL on CPAP Obstructive sleep apnea (adult) (pediatric) Prediabetes Other abnormal glucose Restless legs syndrome (RLS) Hematuria, unspecified type Benign prostatic hyperplasia with nocturia Obesity, Class II, BMI 35-39.9 Obesity, unspecified Type 2 diabetes mellitus without complication, without long-term current use of insulin (HCC)- Primary Hypertriglyceridemia Pure hyperglyceridemia Encounter for immunization Need for other specified prophylactic vaccination against single bacterial disease Major depressive disorder, remission status unspecified, unspecified whether recurrent Chest pain, unspecified type JOSÉ MIGUEL (obstructive sleep apnea) Obstructive sleep apnea (adult) (pediatric) Essential hypertension Unspecified essential hypertension Alternating constipation and diarrhea Other symptoms involving digestive system [facility] Diagnosis Pre-operative examination- Primary Preoperative examination, unspecified Achilles tendinosis of left lower extremity Primary hypertension Unspecified essential hypertension Hypertriglyceridemia Pure hyperglyceridemia JOSÉ MIGUEL on CPAP Obstructive sleep apnea (adult) (pediatric) Prediabetes Other abnormal glucose Restless legs syndrome (RLS) Hematuria, unspecified type Benign prostatic hyperplasia with nocturia Obesity, Class II, BMI 35-39.9 Obesity, unspecified Lung nodules- Primary Other nonspecific abnormal finding of lung field 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 [facility] Diagnosis Pre-operative examination- Primary Preoperative examination, unspecified Achilles tendinosis of left lower extremity Primary hypertension Unspecified essential hypertension Hypertriglyceridemia Pure hyperglyceridemia JOSÉ MIGUEL on CPAP Obstructive sleep apnea (adult) (pediatric) Prediabetes Other abnormal glucose Restless legs syndrome (RLS) Hematuria, unspecified type Benign prostatic hyperplasia with nocturia Obesity, Class II, BMI 35-39.9 Obesity, unspecified Lung nodules Other nonspecific abnormal finding of lung field [facility] Diagnosis Pre-operative examination- Primary Preoperative examination, unspecified Achilles tendinosis of left lower extremity Primary hypertension Unspecified essential hypertension Hypertriglyceridemia Pure hyperglyceridemia JOSÉ MIGUEL on CPAP Obstructive sleep apnea (adult) (pediatric) Prediabetes Other abnormal glucose Restless legs syndrome (RLS) Hematuria, unspecified type Benign prostatic hyperplasia with nocturia Obesity, Class II, BMI 35-39.9 Obesity, unspecified JOSÉ MIGUEL (obstructive sleep apnea)- Primary Obstructive sleep apnea (adult) (pediatric) [facility] Diagnosis Pre-operative examination- Primary Preoperative examination, unspecified Achilles tendinosis of left lower extremity Primary hypertension Unspecified essential hypertension Hypertriglyceridemia Pure hyperglyceridemia JOSÉ MIGUEL on CPAP Obstructive sleep apnea (adult) (pediatric) Prediabetes Other abnormal glucose Restless legs syndrome (RLS) Hematuria, unspecified type Benign prostatic hyperplasia with nocturia Obesity, Class II, BMI 35-39.9 Obesity, unspecified 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 Obstructive sleep apnea Obstructive sleep apnea (adult) (pediatric) [facility] Pre-operative examination- Primary Preoperative examination, unspecified Achilles tendinosis of left lower extremity Primary hypertension Unspecified essential hypertension Hypertriglyceridemia Pure hyperglyceridemia JOSÉ MIGUEL on CPAP Obstructive sleep apnea (adult) (pediatric) Prediabetes Other abnormal glucose Restless legs syndrome (RLS) Hematuria, unspecified type Benign prostatic hyperplasia with nocturia Obesity, Class II, BMI 35-39.9 Obesity, unspecified Obstructive sleep apnea- Primary Obstructive sleep apnea (adult) (pediatric) Restless legs syndrome (RLS) 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 Chronic use of opiate for therapeutic purpose Obesity, Class II, BMI 35-39.9 Obesity, unspecified Type 2 diabetes mellitus without complication, without long-term current use of insulin ([facility]) [facility] Diagnosis Cervical radiculopathy Brachial neuritis or radiculitis nos Pre-operative examination- Primary Preoperative examination, unspecified Achilles tendinosis of left lower extremity Primary hypertension Unspecified essential hypertension Hypertriglyceridemia Pure hyperglyceridemia JOSÉ MIGUEL on CPAP Obstructive sleep apnea (adult) (pediatric) Prediabetes Other abnormal glucose Restless legs syndrome (RLS) Hematuria, unspecified type Benign prostatic hyperplasia with nocturia Obesity, Class II, BMI 35-39.9 Obesity, unspecified [facility] Diagnosis Pre-operative examination- Primary Preoperative examination, unspecified Achilles tendinosis of left lower extremity Primary hypertension Unspecified essential hypertension Hypertriglyceridemia Pure hyperglyceridemia JOSÉ MIGUEL on CPAP Obstructive sleep apnea (adult) (pediatric) Prediabetes Other abnormal glucose Restless legs syndrome (RLS) Hematuria, unspecified type Benign prostatic hyperplasia with nocturia Obesity, Class II, BMI 35-39.9 Obesity, unspecified Primary hypertension Unspecified essential hypertension [facility] Diagnosis Pre-operative examination- Primary Preoperative examination, unspecified Achilles tendinosis of left lower extremity Primary hypertension Unspecified essential hypertension Hypertriglyceridemia Pure hyperglyceridemia JOSÉ MIGUEL on CPAP Obstructive sleep apnea (adult) (pediatric) Prediabetes Other abnormal glucose Restless legs syndrome (RLS) Hematuria, unspecified type Benign prostatic hyperplasia with nocturia Obesity, Class II, BMI 35-39.9 Obesity, unspecified Hypogonadism in male [facility] Diagnosis Pre-operative examination- Primary Preoperative examination, unspecified Achilles tendinosis of left lower extremity Primary hypertension Unspecified essential hypertension Hypertriglyceridemia Pure hyperglyceridemia JOSÉ MIGUEL on CPAP Obstructive sleep apnea (adult) (pediatric) Prediabetes Other abnormal glucose Restless legs syndrome (RLS) Hematuria, unspecified type Benign prostatic hyperplasia with nocturia Obesity, Class II, BMI 35-39.9 Obesity, unspecified Hypogonadism in male [facility] Diagnosis Pre-operative examination- Primary Preoperative examination, unspecified Achilles tendinosis of left lower extremity Primary hypertension Unspecified essential hypertension Hypertriglyceridemia Pure hyperglyceridemia JOSÉ MIGUEL on CPAP Obstructive sleep apnea (adult) (pediatric) Prediabetes Other abnormal glucose Restless legs syndrome (RLS) Hematuria, unspecified type Benign prostatic hyperplasia with nocturia Obesity, Class II, BMI 35-39.9 Obesity, unspecified Hypogonadism in male [facility] Diagnosis Pre-operative examination- Primary Preoperative examination, unspecified Achilles tendinosis of left lower extremity Primary hypertension Unspecified essential hypertension Hypertriglyceridemia Pure hyperglyceridemia JOSÉ MIGUEL on CPAP Obstructive sleep apnea (adult) (pediatric) Prediabetes Other abnormal glucose Restless legs syndrome (RLS) Hematuria, unspecified type Benign prostatic hyperplasia with nocturia Obesity, Class II, BMI 35-39.9 Obesity, unspecified Type 2 diabetes mellitus without complication, without long-term current use of insulin (HCC) [facility] Diagnosis Pre-operative examination- Primary Preoperative examination, unspecified Achilles tendinosis of left lower extremity Primary hypertension Unspecified essential hypertension Hypertriglyceridemia Pure hyperglyceridemia JOSÉ MIGUEL on CPAP Obstructive sleep apnea (adult) (pediatric) Prediabetes Other abnormal glucose Restless legs syndrome (RLS) Hematuria, unspecified type Benign prostatic hyperplasia with nocturia Obesity, Class II, BMI 35-39.9 Obesity, unspecified Restless legs syndrome (RLS) 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 [facility] Diagnosis Pre-operative examination- Primary Preoperative examination, unspecified Achilles tendinosis of left lower extremity Primary hypertension Unspecified essential hypertension Hypertriglyceridemia Pure hyperglyceridemia JOSÉ MIGUEL on CPAP Obstructive sleep apnea (adult) (pediatric) Prediabetes Other abnormal glucose Restless legs syndrome (RLS) Hematuria, unspecified type Benign prostatic hyperplasia with nocturia Obesity, Class II, BMI 35-39.9 Obesity, unspecified URI, acute- Primary Acute upper respiratory infections of unspecified site documented in this encounter [facility] note* Diagnosis Pre-operative examination- Primary Preoperative examination, unspecified Achilles tendinosis of left lower extremity Primary hypertension Unspecified essential hypertension Hypertriglyceridemia Pure hyperglyceridemia JOSÉ MIGUEL on CPAP Obstructive sleep apnea (adult) (pediatric) Prediabetes Other abnormal glucose Restless legs syndrome (RLS) Hematuria, unspecified type Benign prostatic hyperplasia with nocturia Obesity, Class II, BMI 35-39.9 Obesity, unspecified Erectile dysfunction, unspecified erectile dysfunction type documented in this encounter [facility] note* Diagnosis Pre-operative examination- Primary Preoperative examination, unspecified Achilles tendinosis of left lower extremity Primary hypertension Unspecified essential hypertension Hypertriglyceridemia Pure hyperglyceridemia JOSÉ MIGUEL on CPAP Obstructive sleep apnea (adult) (pediatric) Prediabetes Other abnormal glucose Restless legs syndrome (RLS) Hematuria, unspecified type Benign prostatic hyperplasia with nocturia Obesity, Class II, BMI 35-39.9 Obesity, unspecified Obstructive sleep apnea- Primary Obstructive sleep apnea (adult) (pediatric) Restless legs syndrome (RLS) [facility] prescription opiate use Chronic use of opiate for therapeutic purpose Type 2 diabetes mellitus without complication, without long-term current use of insulin ([facility]) Obesity, Class II, BMI 35-39.9 Obesity, unspecified Obesity, Class I, BMI 30-34.9 Obesity, unspecified documented in this encounter [facility] note* Diagnosis Pre-operative examination- Primary Preoperative examination, unspecified Achilles tendinosis of left lower extremity Primary hypertension Unspecified essential hypertension Hypertriglyceridemia Pure hyperglyceridemia JOSÉ MIGUEL on CPAP Obstructive sleep apnea (adult) (pediatric) Prediabetes Other abnormal glucose Restless legs syndrome (RLS) Hematuria, unspecified type Benign prostatic hyperplasia with nocturia Obesity, Class II, BMI 35-39.9 Obesity, unspecified Type 2 diabetes mellitus without complication, without long-term current use of insulin (HCC) [facility] Diagnosis Pre-operative examination- Primary Preoperative examination, unspecified Achilles tendinosis of left lower extremity Primary hypertension Unspecified essential hypertension Hypertriglyceridemia Pure hyperglyceridemia JOSÉ MIGUEL on CPAP Obstructive sleep apnea (adult) (pediatric) Prediabetes Other abnormal glucose Restless legs syndrome (RLS) Hematuria, unspecified type Benign prostatic hyperplasia with nocturia Obesity, Class II, BMI 35-39.9 Obesity, unspecified Controlled type 2 diabetes mellitus without complication, without long-term current use of insulin (HCC)- Primary Hypertriglyceridemia Pure hyperglyceridemia Encounter for screening fecal occult blood testing Special screening for malignant neoplasms, colon Primary hypertension Unspecified essential hypertension JOSÉ MIGUEL (obstructive sleep apnea) Obstructive sleep apnea (adult) (pediatric) Restless legs syndrome (RLS) Lung nodules Other nonspecific abnormal finding of lung field [facility] Diagnosis Pre-operative examination- Primary Preoperative examination, unspecified Achilles tendinosis of left lower extremity Primary hypertension Unspecified essential hypertension Hypertriglyceridemia Pure hyperglyceridemia JOSÉ MIGUEL on CPAP Obstructive sleep apnea (adult) (pediatric) Prediabetes Other abnormal glucose Restless legs syndrome (RLS) Hematuria, unspecified type Benign prostatic hyperplasia with nocturia Obesity, Class II, BMI 35-39.9 Obesity, unspecified Lung nodules Other nonspecific abnormal finding of lung field [facility] Diagnosis Pre-operative examination- Primary Preoperative examination, unspecified Achilles tendinosis of left lower extremity Primary hypertension Unspecified essential hypertension Hypertriglyceridemia Pure hyperglyceridemia JOSÉ MIGUEL on CPAP Obstructive sleep apnea (adult) (pediatric) Prediabetes Other abnormal glucose Restless legs syndrome (RLS) Hematuria, unspecified type Benign prostatic hyperplasia with nocturia Obesity, Class II, BMI 35-39.9 Obesity, unspecified Lung nodules- Primary Other nonspecific abnormal finding of lung field 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 [facility] Diagnosis Pre-operative examination- Primary Preoperative examination, unspecified Achilles tendinosis of left lower extremity Primary hypertension Unspecified essential hypertension Hypertriglyceridemia Pure hyperglyceridemia JOSÉ MIGUEL on CPAP Obstructive sleep apnea (adult) (pediatric) Prediabetes Other abnormal glucose Restless legs syndrome (RLS) Hematuria, unspecified type Benign prostatic hyperplasia with nocturia Obesity, Class II, BMI 35-39.9 Obesity, unspecified Restless legs syndrome (RLS)- Primary 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 Obstructive sleep apnea Obstructive sleep apnea (adult) (pediatric) Neuropathy Mononeuritis of unspecified site [facility] Diagnosis Pre-operative examination- Primary Preoperative examination, unspecified Achilles tendinosis of left lower extremity Primary hypertension Unspecified essential hypertension Hypertriglyceridemia Pure hyperglyceridemia JOSÉ MIGUEL on CPAP Obstructive sleep apnea (adult) (pediatric) Prediabetes Other abnormal glucose Restless legs syndrome (RLS) Hematuria, unspecified type Benign prostatic hyperplasia with nocturia Obesity, Class II, BMI 35-39.9 Obesity, unspecified Obstructive sleep apnea- Primary Obstructive sleep apnea (adult) (pediatric) [facility] Diagnosis Pre-operative examination- Primary Preoperative examination, unspecified Achilles tendinosis of left lower extremity Primary hypertension Unspecified essential hypertension Hypertriglyceridemia Pure hyperglyceridemia JOSÉ MIGUEL on CPAP Obstructive sleep apnea (adult) (pediatric) Prediabetes Other abnormal glucose Restless legs syndrome (RLS) Hematuria, unspecified type Benign prostatic hyperplasia with nocturia Obesity, Class II, BMI 35-39.9 Obesity, unspecified Controlled type 2 diabetes mellitus without complication, without long-term current use of insulin ([facility]) [facility] Diagnosis Pre-operative examination- Primary Preoperative examination, unspecified Achilles tendinosis of left lower extremity Primary hypertension Unspecified essential hypertension Hypertriglyceridemia Pure hyperglyceridemia JOSÉ MIGUEL on CPAP Obstructive sleep apnea (adult) (pediatric) Prediabetes Other abnormal glucose Restless legs syndrome (RLS) Hematuria, unspecified type Benign prostatic hyperplasia with nocturia Obesity, Class II, BMI 35-39.9 Obesity, unspecified Acute midline low back pain without sciatica- Primary [facility] Diagnosis Pre-operative examination- Primary Preoperative examination, unspecified Achilles tendinosis of left lower extremity Primary hypertension Unspecified essential hypertension Hypertriglyceridemia Pure hyperglyceridemia JOSÉ MIGUEL on CPAP Obstructive sleep apnea (adult) (pediatric) Prediabetes Other abnormal glucose Restless legs syndrome (RLS) Hematuria, unspecified type Benign prostatic hyperplasia with nocturia Obesity, Class II, BMI 35-39.9 Obesity, unspecified JOSÉ MIUGEL (obstructive sleep apnea)- Primary Obstructive sleep apnea (adult) (pediatric) Intolerance of continuous positive airway pressure (CPAP) ventilation [facility] Diagnosis Pre-operative examination- Primary Preoperative examination, unspecified Achilles tendinosis of left lower extremity Primary hypertension Unspecified essential hypertension Hypertriglyceridemia Pure hyperglyceridemia JOSÉ MIGUEL on CPAP Obstructive sleep apnea (adult) (pediatric) Prediabetes Other abnormal glucose Restless legs syndrome (RLS) Hematuria, unspecified type Benign prostatic hyperplasia with nocturia Obesity, Class II, BMI 35-39.9 Obesity, unspecified Pre-operative examination- Primary Preoperative examination, unspecified Restless legs syndrome (RLS) Primary hypertension Unspecified essential hypertension Hypertriglyceridemia Pure hyperglyceridemia Diabetes mellitus type II (HCC) Benign prostatic hyperplasia, unspecified whether lower urinary tract symptoms present Depression, unspecified depression type Obesity, Class I, BMI 30-34.9 Obesity, unspecified Acute midline low back pain without sciatica- Primary [facility] Diagnosis Pre-operative examination- Primary Preoperative examination, unspecified Achilles tendinosis of left lower extremity Primary hypertension Unspecified essential hypertension Hypertriglyceridemia Pure hyperglyceridemia JOSÉ MIGUEL on CPAP Obstructive sleep apnea (adult) (pediatric) Prediabetes Other abnormal glucose Restless legs syndrome (RLS) Hematuria, unspecified type Benign prostatic hyperplasia with nocturia Obesity, Class II, BMI 35-39.9 Obesity, unspecified Pre-operative examination- Primary Preoperative examination, unspecified Restless legs syndrome (RLS) Primary hypertension Unspecified essential hypertension Hypertriglyceridemia Pure hyperglyceridemia Diabetes mellitus type II (HCC) Benign prostatic hyperplasia, unspecified whether lower urinary tract symptoms present Depression, unspecified depression type Obesity, Class I, BMI 30-34.9 Obesity, unspecified Farley-Ekbom syndrome- Primary Restless legs syndrome (RLS) Restless legs syndrome (RLS) [facility] prescription opiate use [facility] Diagnosis Pre-operative examination- Primary Preoperative examination, unspecified Achilles tendinosis of left lower extremity Primary hypertension Unspecified essential hypertension Hypertriglyceridemia Pure hyperglyceridemia JOSÉ MIGUEL on CPAP Obstructive sleep apnea (adult) (pediatric) Prediabetes Other abnormal glucose Restless legs syndrome (RLS) Hematuria, unspecified type Benign prostatic hyperplasia with nocturia Obesity, Class II, BMI 35-39.9 Obesity, unspecified Pre-operative examination- Primary Preoperative examination, unspecified Restless legs syndrome (RLS) Primary hypertension Unspecified essential hypertension Hypertriglyceridemia Pure hyperglyceridemia Diabetes mellitus type II (HCC) Benign prostatic hyperplasia, unspecified whether lower urinary tract symptoms present Depression, unspecified depression type Obesity, Class I, BMI 30-34.9 Obesity, unspecified Hypogonadism in male documented in this encounter [facility] Diagnosis Pre-operative examination- Primary Preoperative examination, unspecified Achilles tendinosis of left lower extremity Primary hypertension Unspecified essential hypertension Hypertriglyceridemia Pure hyperglyceridemia JOSÉ MIGUEL on CPAP Obstructive sleep apnea (adult) (pediatric) Prediabetes Other abnormal glucose Restless legs syndrome (RLS) Hematuria, unspecified type Benign prostatic hyperplasia with nocturia Obesity, Class II, BMI 35-39.9 Obesity, unspecified Pre-operative examination- Primary Preoperative examination, unspecified Restless legs syndrome (RLS) Primary hypertension Unspecified essential hypertension Hypertriglyceridemia Pure hyperglyceridemia Diabetes mellitus type II (HCC) Benign prostatic hyperplasia, unspecified whether lower urinary tract symptoms present Depression, unspecified depression type Obesity, Class I, BMI 30-34.9 Obesity, unspecified Controlled type 2 diabetes mellitus without complication, without long-term current use of insulin (HCC) documented [facility] this [facility] Diagnosis Pre-operative examination- Primary Preoperative examination, unspecified Achilles tendinosis of left lower extremity Primary hypertension Unspecified essential hypertension Hypertriglyceridemia Pure hyperglyceridemia JOSÉ MIGUEL on CPAP Obstructive sleep apnea (adult) (pediatric) Prediabetes Other abnormal glucose Restless legs syndrome (RLS) Hematuria, unspecified type Benign prostatic hyperplasia with nocturia Obesity, Class II, BMI 35-39.9 Obesity, unspecified Pre-operative examination- Primary Preoperative examination, unspecified Restless legs syndrome (RLS) Primary hypertension Unspecified essential hypertension Hypertriglyceridemia Pure hyperglyceridemia Diabetes mellitus type II (HCC) Benign prostatic hyperplasia, unspecified whether lower urinary tract symptoms present Depression, unspecified depression type Obesity, Class I, BMI 30-34.9 Obesity, unspecified Erectile dysfunction, unspecified erectile dysfunction type [facility] Diagnosis Pre-operative examination- Primary Preoperative examination, unspecified Achilles tendinosis of left lower extremity Primary hypertension Unspecified essential hypertension Hypertriglyceridemia Pure hyperglyceridemia JOSÉ MIGUEL on CPAP Obstructive sleep apnea (adult) (pediatric) Prediabetes Other abnormal glucose Restless legs syndrome (RLS) Hematuria, unspecified type Benign prostatic hyperplasia with nocturia Obesity, Class II, BMI 35-39.9 Obesity, unspecified Pre-operative examination- Primary Preoperative examination, unspecified Restless legs syndrome (RLS) Primary hypertension Unspecified essential hypertension Hypertriglyceridemia Pure hyperglyceridemia Diabetes mellitus type II (HCC) Benign prostatic hyperplasia, unspecified whether lower urinary tract symptoms present Depression, unspecified depression type Obesity, Class I, BMI 30-34.9 Obesity, unspecified Controlled type 2 diabetes mellitus without complication, without long-term current use of insulin (HCC) documented [facility] this [facility] Diagnosis Pre-operative examination- Primary Preoperative examination, unspecified Achilles tendinosis of left lower extremity Primary hypertension Unspecified essential hypertension Hypertriglyceridemia Pure hyperglyceridemia JOSÉ MIGUEL on CPAP Obstructive sleep apnea (adult) (pediatric) Prediabetes Other abnormal glucose Restless legs syndrome (RLS) Hematuria, unspecified type Benign prostatic hyperplasia with nocturia Obesity, Class II, BMI 35-39.9 Obesity, unspecified Pre-operative examination- Primary Preoperative examination, unspecified Restless legs syndrome (RLS) Primary hypertension Unspecified essential hypertension Hypertriglyceridemia Pure hyperglyceridemia Diabetes mellitus type II (HCC) Benign prostatic hyperplasia, unspecified whether lower urinary tract symptoms present Depression, unspecified depression type Obesity, Class I, BMI 30-34.9 Obesity, unspecified Medication management- Primary Encounter for long-term (current) use of other medications Restless legs syndrome (RLS) 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 Chronic, continuous use of opioids Opioid type dependence, continuous [facility] Diagnosis Pre-operative examination- Primary Preoperative examination, unspecified Achilles tendinosis of left lower extremity Primary hypertension Unspecified essential hypertension Hypertriglyceridemia Pure hyperglyceridemia JOSÉ MIGUEL on CPAP Obstructive sleep apnea (adult) (pediatric) Prediabetes Other abnormal glucose Restless legs syndrome (RLS) Hematuria, unspecified type Benign prostatic hyperplasia with nocturia Obesity, Class II, BMI 35-39.9 Obesity, unspecified Pre-operative examination- Primary Preoperative examination, unspecified Restless legs syndrome (RLS) Primary hypertension Unspecified essential hypertension Hypertriglyceridemia Pure hyperglyceridemia Diabetes mellitus type II (HCC) Benign prostatic hyperplasia, unspecified whether lower urinary tract symptoms present Depression, unspecified depression type Obesity, Class I, BMI 30-34.9 Obesity, unspecified Hypertriglyceridemia Pure hyperglyceridemia documented in this [facility] Diagnosis Pre-operative examination- Primary Preoperative examination, unspecified Achilles tendinosis of left lower extremity Primary hypertension Unspecified essential hypertension Hypertriglyceridemia Pure hyperglyceridemia JOSÉ MIGUEL on CPAP Obstructive sleep apnea (adult) (pediatric) Prediabetes Other abnormal glucose Restless legs syndrome (RLS) Hematuria, unspecified type Benign prostatic hyperplasia with nocturia Obesity, Class II, BMI 35-39.9 Obesity, unspecified Pre-operative examination- Primary Preoperative examination, unspecified Restless legs syndrome (RLS) Primary hypertension Unspecified essential hypertension Hypertriglyceridemia Pure hyperglyceridemia Diabetes mellitus type II (HCC) Benign prostatic hyperplasia, unspecified whether lower urinary tract symptoms present Depression, unspecified depression type Obesity, Class I, BMI 30-34.9 Obesity, unspecified Bilateral hip pain- Primary Pain in joint, pelvic region and thigh Pain in both lower extremities Diabetes mellitus type II (HCC) Encounter for immunization Need for other specified prophylactic vaccination against single bacterial disease documented in this encounter [facility] for referral (narrative)* Diagnostic Procedure Only (Routine) - Authorized Specialty Diagnoses / Procedures Referred By Arlethac t Referred To Contact [facility] Diagnoses Lump of skin of back Procedures US HEAD/NECK SOFT TISSUE OTHER US SOFT TISSUE HEAD & NECK REAL TIME IMGE DOC SchuylerlogGenesis driver APRN.CNP [address] [id number] [facility] [place] [address] Referral ID Status Reason Start Date Expiration Date Visits Requested Visits Authorized [id number] Authorized Auto-Generat ed Referral 03/04/2023 04/02/2024 1 1 * Consult, Test, Treat (Routine) - Authorized Specialty Diagnoses / Procedures Referred By Arlethac t Referred To Contact General Surgery Diagnoses Rectal bleeding Procedures CONSULT TO GENERAL SURGERY OFFICE/OUTPATIENT [facility] 60-74 MINUTES SchuylerlogGenesis driver APRN.CNP [address] [place] [address] Referral ID Status Reason Start Date Expiration Date Visits Requested Visits Authorized [id number] Authorized PCP Requested Referral 03/04/2023 03/03/2024 1 1 [facility] for referral (narrative)* Outpatient Procedure (Urgent) - Authorized Specialty Diagnoses / Procedures Referred By Contac t Referred [facility] Diagnoses Nausea Diaphoresis Procedures EXERCISE STRESS ECG (WITHOUT IMAGING) CV STRS TST XERS&/OR RX CONT ECG W/SI&R Chayo Hickey MD [address] [place] [address] [address] Referral ID Status Reason Start Date Expiration Date Visits Requested Visits Authorized [id number] Authorized Auto-Generat ed Referral 11/25/2023 06/15/2024 1 1 * Outpatient Procedure (Urgent) - Authorized Specialty Diagnoses / Procedures [facility] Diagnoses Nausea Diaphoresis Procedures ECHO ECHO TTHRC R-T 2D W/WOM-MODE COMPL SPEC&COLR D Chayo Hickey MD [address] [place] [address] [address] Referral ID Status Reason Start Date Expiration Date Visits Requested Visits Authorized [id number] Authorized Auto-Generat ed Referral 11/25/2023 12/24/2023 1 1 * Outpatient Procedure (Routine) - Pending Review Specialty Diagnoses / Procedures Referred By Micheline t Referred To Contact [facility] Diagnoses Nausea Diaphoresis Procedures ECG COMPLETE ECG ROUTINE ECG W/LEAST 12 LDS W/[place] [address] [place] [address] [address] Referral ID Status Reason Start Date Expiration Date Visits Requested Visits Authorized [id number] Pending Review Auto-Generat ed Referral 11/25/2023 11/24/2024 1 1 [facility] for referral (narrative)* Diagnostic Procedure Only (Routine) - Open Specialty Diagnoses / Procedures Referred By Contac t Referred To Contact [facility] Diagnoses JOSÉ MIGUEL on CPAP Procedures HOME SLEEP APNEA TEST (HSAT) SLEEP STD AIRFLOW HRT RATE&O2 SAT EFFORT UNATT KarotorJaden ace, DO [address] [place] [address] [facility] [place] [address] [place] [address] Referral ID Status Reason Start Date Expiration Date V isits Requested Visits Authorized [id number] Open Auto-Generate d Referral 12/05/2023 2024 1 1 * Transition of Care (Routine) - Ref Not Required Specialty Diagnoses / Procedures Referred By Micheline vang Referred To Contact Ent - Otolaryngology Diagnoses JOSÉ MIGUEL on CPAP Procedures CONSULT TO SLEEP SURGERY-ADULT Karotormalka Jaden Mcfarland DO [address] [place] [address] Referral ID Status Reason Start Date Expiration Date Visits Requested Visits Authorized [id number] Ref Not Required PCP Requested Referral 12/05/2023 11/25/2024 1 1 [facility] for visit Narrative* MRI/CT (Routine) - Closed Specialty Diagnoses / Procedures Referred By Micheline vang Referred To Contact CT IMAGING Diagnoses Lung nodules Procedures CT CHEST WO IVCON DIAGNOSTIC COMPUTED TOMOGRAPHY THORAX W/O CNTRST Raisa Han, BRITTANY.STOGY ROLLER [address] [phone] Phone: tel: fax: [facility] [place] [address] Referral ID Status Reason Start Date Expiration Date V isits Requested Visits Authorized [id number] Closed Auto-Generate d Referral 08/20/2024 09/18/2024 1 1 [facility] Summary Purpose Family History No Family History Records FoundNo Family History Records FoundNo Family History Records FoundNo Family History Records FoundNo Family History Records FoundNo Family History Records FoundNo Family History Records FoundNo Family History Records Found Advance Directives No Advanced Directives Records FoundDocuments on File Type Date Recorded 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 Advance Directive(s) 08/08/2021 6:14 PM Advance Directive(s) 02/18/2020 9:18 AM Advance Directive(s) 02/10/2020 4:09 PM Documents on File Type Date Recorded 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 Advance Directive(s) 08/08/2021 6:14 PM Advance Directive(s) 02/18/2020 9:18 AM Advance Directive(s) 02/10/2020 4:09 PM Reason for Referral Specialty Diagnoses / Procedures Referred By Contac t Referred To Contact Diagnoses Restless legs syndrome (RLS) Chronic use of opiate for therapeutic purpose Renetta Rees APRN.STOGY ROLLER [address] [place] [address] Referral ID Status Reason Start Date Expiration Date Visits Re quested Visits Authorized [id number] Closed 1 1 Referral ID Status Reason Start Date Expiration Date Visits Re quested Visits Authorized [id number] Closed 1 1 Specialty Diagnoses / Procedures Referred By Contac t Referred To Contact Physical Therapy / PHYSICAL THERAPY Diagnoses Achilles tendinosis of left lower extremity Procedures CONSULT [place] [address] [place] [address] [facility] [address] [place] [address] Referral ID Status Reason Start Date Expiration Date V isits Requested Visits Authorized [id number] Authorized 11/28/2021 06/15/2022 99 99 Specialty Diagnoses / Procedures Referred By Contac t Referred To Contact General Surgery Diagnoses Thrombosed hemorrhoids Procedures CONSULT TO GENERAL SURGERY OFFICE/OUTPATIENT [facility] 60-74 MINUTES Chayo Hickey MD [address] [place] [address] Referral ID Status Reason Start Date Expiration Date Visits Requested Visits Authorized [id number] Authorized PCP Requested Referral 12/05/2021 12/05/2022 1 1 Specialty Diagnoses / Procedures Referred By Contac t Referred To Contact Diagnoses Restless legs syndrome (RLS) Renetta Rees APRN.STOGY ROLLER [address] [place] [address] Referral ID Status Reason Start Date Expiration Date Visits Re quested Visits Authorized [id number] Closed 1 1 Specialty Diagnoses / Procedures Referred By Contac t Referred To Contact Diagnoses Restless legs syndrome (RLS) Ganesh Ojeda APRN.STOGY ROLLER [address] [place] [address] Referral ID Status Reason Start Date Expiration Date Visits Re quested Visits Authorized [id number] Closed 1 1 Referral ID Status Reason Start Date Expiration Date Visits Re quested Visits Authorized [id number] Closed 1 1 Referral ID Status Reason Start Date Expiration Date Visits Re quested Visits Authorized [id number] Closed 1 1 Specialty Diagnoses / Procedures Referred By Contac t Referred To Contact Ent - Otolaryngology Diagnoses JOSÉ MIGUEL (obstructive sleep apnea) Intolerance of continuous positive airway pressure (CPAP) ventilation Procedures CONSULT TO SLEEP SURGERY-ADULT Karli Correa APRN.STOGY ROLLER [address] [place] [address] Referral ID Status Reason Start Date Expiration Date Visits Requested Visits Authorized [id number] Ref Not Required PCP Requested Referral 01/02/2023 12/24/2023 1 1 Specialty Diagnoses / Procedures Referred By Contac t Referred To Contact Diagnoses Restless legs syndrome (RLS) [facility] prescription opiate use Frank Lal APRN.STOGY ROLLER [address] [place] [address] Referral ID Status Reason Start Date Expiration Date Visits Re quested Visits Authorized [id number] Closed 1 1 Referral ID Status Reason Start Date Expiration Date Visits Re quested Visits Authorized [id number] Closed 1 1 Referral ID Status Reason Start Date Expiration Date Visits Re quested Visits Authorized [id number] Closed 1 1 Specialty Diagnoses / Procedures Referred By Contac t Referred To Contact Pulmonary and Critical Care Medicine Diagnoses Bronchiolitis Lung nodules Procedures CONSULT TO PULM/CRITICAL CARE OFFICE/OUTPATIENT [facility] 60 MINUTES Chayo Hickey MD [address] [place] [address] Referral ID Status Reason Start Date Expiration Date Visits Requested Visits Authorized [id number] Authorized PCP Requested Referral 12/06/2023 12/05/2024 1 1 Specialty Diagnoses / Procedures Referred By Contac t Referred To Contact CT IMAGING Diagnoses Abnormal chest x-ray with multiple lung nodules Procedures CT CHEST WO IVCON DIAGNOSTIC COMPUTED TOMOGRAPHY THORAX W/O CNTRST Chayo Hickey MD [address] [place] [address] [facility] [place] [address] Referral ID Status Reason Start Date Expiration Date V isits Requested Visits Authorized [id number] Closed Auto-Generated Referral Clearance Not Met -Financial Clearance Bypassed 12/05/2023 01/03/2024 1 1 Specialty Diagnoses / Procedures Referred By Contac t Referred To Contact CT IMAGING Diagnoses Lung nodules Procedures CT CHEST WO IVCON DIAGNOSTIC COMPUTED TOMOGRAPHY THORAX W/O CNTRST Raisa Han APRN.STOGY ROLLER [phone] [facility] [place] [address] Referral ID Status Reason Start Date Expiration Date Visits Requested Visits Authorized [id number] Pending Review Auto-Generat ed Referral 12/25/2023 01/23/2025 1 1 Specialty Diagnoses / Procedures Referred By Contac t Referred To Contact Diagnoses Restless legs syndrome (RLS) 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 Jaedn Man DO [address] [place] [address] Referral ID Status Reason Start Date Expiration Date Visits Re quested Visits Authorized [id number] Closed 1 1 Specialty Diagnoses / Procedures Referred By Contac t Referred To Contact Ophthalmology Diagnoses Type 2 diabetes mellitus without complication, without long-term current use of insulin (HCC) Procedures CONSULT TO OPHTHALMOLOGY OFFICE/OUTPATIENT NEW HIGH MDM 60 MINUTES Genesis Spencer APRN.STOGY ROLLER [address] [place] [address] Referral ID Status Reason Start Date Expiration Date Visits Requested Visits Authorized [id number] Authorized PCP Requested Referral 03/02/2024 03/02/2025 1 1 Referral ID Status Reason Start Date Expiration Date Visits Requested Visits Authorized [id number] Pending Review Auto-Generat ed Referral 03/03/2024 04/02/2025 1 1 Referral ID Status Reason Start Date Expiration Date V isits Requested Visits Authorized [id number] Closed Auto-Generate d Referral 02/12/2024 03/12/2024 1 1 Specialty Diagnoses / Procedures Referred By Contac t Referred To Contact Ent - Otolaryngology Diagnoses JOSÉ MIGUEL (obstructive sleep apnea) Procedures CONSULT TO ENT OFFICE/OUTPATIENT [facility] 60 MINUTES Jaden Man, DO [address] [place] [address] Referral ID Status Reason Start Date Expiration Date Visits Requested Visits Authorized [id number] Authorized PCP Requested Referral 03/12/2024 03/12/2025 1 1 Specialty Diagnoses / Procedures Referred By Contac t Referred To Contact Diagnoses Restless legs syndrome (RLS) 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 Ganesh Ojeda, BRITTANY.STOGY ROLLER [address] [place] [address] Referral ID Status Reason Start Date Expiration Date Visits Re quested Visits Authorized [id number] Closed 1 1 Referral ID Status Reason Start Date Expiration Date Visits Re quested Visits Authorized [id number] Closed 1 1 Referral ID Status Reason Start Date Expiration Date Visits Re quested Visits Authorized [id number] Closed 1 1 Specialty Diagnoses / Procedures Referred By Contac t Referred To Contact Diagnoses Hypogonadism in male SchuylerlogGenesis driver APRN.STOGY ROLLER [address] [place] [address] Referral ID Status Reason Start Date Expiration Date V isits Requested Visits Authorized [id number] Authorized 1 1 Referral ID Status Reason Start Date Expiration Date Visits Re quested Visits Authorized [id number] Closed 1 1 Referral ID Status Reason Start Date Expiration Date Visits Re quested Visits Authorized [id number] Closed 1 1 Referral ID Status Reason Start Date Expiration Date Visits Re quested Visits Authorized [id number] Closed 1 1 Additional Source Comments (unrecognized sect ion and content) No Status Records FoundNo Status Records FoundNo Status Records FoundNo Status Records FoundNo Status Records FoundNo Status Records FoundNo Status Records FoundNo Status Records Found INFORMATION SOURCE (unrecogn ized section and content) DATE CREATED AUTHOR 12/10/2017 [facility] DATE CREATED AUTHOR AUTHOR'S ORGANIZ ATION 04/23/2019 [facility] DATE CREATED AUTHOR AUTHOR'S ORGANIZ ATION 09/08/2021 [facility] DATE CREATED AUTHOR AUTHOR'S ORGANIZ ATION 08/03/2022 [facility] DATE CREATED AUTHOR AUTHOR'S ORGANIZ ATION 08/27/2022 [facility] DATE CREATED AUTHOR AUTHOR'S ORGANIZ ATION 06/17/2023 [facility] DATE CREATED AUTHOR AUTHOR'S ORGANIZ ATION 12/07/2023 [facility] DATE CREATED AUTHOR AUTHOR'S ORGANIZ ATION 04/19/2025 [facility] Source Comments (unrecognize d section and content) In the event this informatio n is protected by the Federal Confidentiality of Alcohol and Drug Abuse Patient Records regulations: The Federal rules restrict any use of the information to criminally investigate or prosecute any alcohol or drug abuse patient.[facility] the event this information is protected by the Federal Confidentiality of Alcohol and Drug Abuse Patient Records regulations: The Federal rules restrict any use of the information to criminally investigate or prosecute any alcohol or drug abuse patient.[facility] the event this information is protected by the Federal Confidentiality of Alcohol and Drug Abuse Patient Records regulations: The Federal rules restrict any use of the information to criminally investigate or prosecute any alcohol or drug abuse patient.[facility] the event this information is protected by the Federal Confidentiality of Alcohol and Drug Abuse Patient Records regulations: The Federal rules restrict any use of the information to criminally investigate or prosecute any alcohol or drug abuse patient.[facility] the event this information is protected by the Federal Confidentiality of Alcohol and Drug Abuse Patient Records regulations: The Federal rules restrict any use of the information to criminally investigate or prosecute any alcohol or drug abuse patient.[facility] the event this information is protected by the Federal Confidentiality of Alcohol and Drug Abuse Patient Records regulations: The Federal rules restrict any use of the information to criminally investigate or prosecute any alcohol or drug abuse patient.[facility] the event this information is protected by the Federal Confidentiality of Alcohol and Drug Abuse Patient Records regulations: The Federal rules restrict any use of the information to criminally investigate or prosecute any alcohol or drug abuse patient.[facility] the event this information is protected by the Federal Confidentiality of Alcohol and Drug Abuse Patient Records regulations: The Federal rules restrict any use of the information to criminally investigate or prosecute any alcohol or drug abuse patient.[facility] System[facility] the event this information is protected by the Federal Confidentiality of Alcohol and Drug Abuse Patient Records regulations: The Federal rules restrict any use of the information to criminally investigate or prosecute any alcohol or drug abuse patient.[facility] System[facility] the event this information is protected by the Federal Confidentiality of Alcohol and Drug Abuse Patient Records regulations: The Federal rules restrict any use of the information to criminally investigate or prosecute any alcohol or drug abuse patient.[facility] System[facility] the event this information is protected by the Federal Confidentiality of Alcohol and Drug Abuse Patient Records regulations: The Federal rules restrict any use of the information to criminally investigate or prosecute any alcohol or drug abuse patient.[facility] SystemIn the event this information is protected by the Federal Confidentiality of Alcohol and Drug Abuse Patient Records regulations: The Federal rules restrict any use of the information to criminally investigate or prosecute any alcohol or drug abuse patient.[facility] SystemIn the event this information is protected by the Federal Confidentiality of Alcohol and Drug Abuse Patient Records regulations: The Federal rules restrict any use of the information to criminally investigate or prosecute any alcohol or drug abuse patient.[facility] SystemIn the event this information is protected by the Federal Confidentiality of Alcohol and Drug Abuse Patient Records regulations: The Federal rules restrict any use of the information to criminally investigate or prosecute any alcohol or drug abuse patient.[facility] SystemIn the event this information is protected by the Federal Confidentiality of Alcohol and Drug Abuse Patient Records regulations: The Federal rules restrict any use of the information to criminally investigate or prosecute any alcohol or drug abuse patient.[facility] SystemIn the event this information is protected by the Federal Confidentiality of Alcohol and Drug Abuse Patient Records regulations: The Federal rules restrict any use of the information to criminally investigate or prosecute any alcohol or drug abuse patient.[facility] SystemIn the event this information is protected by the Federal Confidentiality of Alcohol and Drug Abuse Patient Records regulations: The Federal rules restrict any use of the information to criminally investigate or prosecute any alcohol or drug abuse patient.[facility] SystemIn the event this information is protected by the Federal Confidentiality of Alcohol and Drug Abuse Patient Records regulations: The Federal rules restrict any use of the information to criminally investigate or prosecute any alcohol or drug abuse patient.[facility] SystemIn the event this information is protected by the Federal Confidentiality of Alcohol and Drug Abuse Patient Records regulations: The Federal rules restrict any use of the information to criminally investigate or prosecute any alcohol or drug abuse patient.[facility] SystemIn the event this information is protected by the Federal Confidentiality of Alcohol and Drug Abuse Patient Records regulations: The Federal rules restrict any use of the information to criminally investigate or prosecute any alcohol or drug abuse patient.[facility] SystemIn the event this information is protected by the Federal Confidentiality of Alcohol and Drug Abuse Patient Records regulations: The Federal rules restrict any use of the information to criminally investigate or prosecute any alcohol or drug abuse patient.[facility] SystemIn the event this information is protected by the Federal Confidentiality of Alcohol and Drug Abuse Patient Records regulations: The Federal rules restrict any use of the information to criminally investigate or prosecute any alcohol or drug abuse patient.[facility] SystemIn the event this information is protected by the Federal Confidentiality of Alcohol and Drug Abuse Patient Records regulations: The Federal rules restrict any use of the information to criminally investigate or prosecute any alcohol or drug abuse patient.[facility] SystemIn the event this information is protected by the Federal Confidentiality of Alcohol and Drug Abuse Patient Records regulations: The Federal rules restrict any use of the information to criminally investigate or prosecute any alcohol or drug abuse patient.[facility] SystemIn the event this information is protected by the Federal Confidentiality of Alcohol and Drug Abuse Patient Records regulations: The Federal rules restrict any use of the information to criminally investigate or prosecute any alcohol or drug abuse patient.[facility] SystemIn the event this information is protected by the Federal Confidentiality of Alcohol and Drug Abuse Patient Records regulations: The Federal rules restrict any use of the information to criminally investigate or prosecute any alcohol or drug abuse patient.[facility] SystemIn the event this information is protected by the Federal Confidentiality of Alcohol and Drug Abuse Patient Records regulations: The Federal rules restrict any use of the information to criminally investigate or prosecute any alcohol or drug abuse patient.[facility] SystemIn the event this information is protected by the Federal Confidentiality of Alcohol and Drug Abuse Patient Records regulations: The Federal rules restrict any use of the information to criminally investigate or prosecute any alcohol or drug abuse patient.[facility] SystemIn the event this information is protected by the Federal Confidentiality of Alcohol and Drug Abuse Patient Records regulations: The Federal rules restrict any use of the information to criminally investigate or prosecute any alcohol or drug abuse patient.[facility] SystemIn the event this information is protected by the Federal Confidentiality of Alcohol and Drug Abuse Patient Records regulations: The Federal rules restrict any use of the information to criminally investigate or prosecute any alcohol or drug abuse patient.[facility] SystemIn the event this information is protected by the Federal Confidentiality of Alcohol and Drug Abuse Patient Records regulations: The Federal rules restrict any use of the information to criminally investigate or prosecute any alcohol or drug abuse patient.[facility] SystemIn the event this information is protected by the Federal Confidentiality of Alcohol and Drug Abuse Patient Records regulations: The Federal rules restrict any use of the information to criminally investigate or prosecute any alcohol or drug abuse patient.[facility] SystemIn the event this information is protected by the Federal Confidentiality of Alcohol and Drug Abuse Patient Records regulations: The Federal rules restrict any use of the information to criminally investigate or prosecute any alcohol or drug abuse patient.[facility] SystemIn the event this information is protected by the Federal Confidentiality of Alcohol and Drug Abuse Patient Records regulations: The Federal rules restrict any use of the information to criminally investigate or prosecute any alcohol or drug abuse patient.[facility] SystemIn the event this information is protected by the Federal Confidentiality of Alcohol and Drug Abuse Patient Records regulations: The Federal rules restrict any use of the information to criminally investigate or prosecute any alcohol or drug abuse patient.[facility] SystemIn the event this information is protected by the Federal Confidentiality of Alcohol and Drug Abuse Patient Records regulations: The Federal rules restrict any use of the information to criminally investigate or prosecute any alcohol or drug abuse patient.[facility] SystemIn the event this information is protected by the Federal Confidentiality of Alcohol and Drug Abuse Patient Records regulations: The Federal rules restrict any use of the information to criminally investigate or prosecute any alcohol or drug abuse patient.[facility] SystemIn the event this information is protected by the Federal Confidentiality of Alcohol and Drug Abuse Patient Records regulations: The Federal rules restrict any use of the information to criminally investigate or prosecute any alcohol or drug abuse patient.[facility] SystemIn the event this information is protected by the Federal Confidentiality of Alcohol and Drug Abuse Patient Records regulations: The Federal rules restrict any use of the information to criminally investigate or prosecute any alcohol or drug abuse patient.[facility] SystemIn the event this information is protected by the Federal Confidentiality of Alcohol and Drug Abuse Patient Records regulations: The Federal rules restrict any use of the information to criminally investigate or prosecute any alcohol or drug abuse patient.[facility] SystemIn the event this information is protected by the Federal Confidentiality of Alcohol and Drug Abuse Patient Records regulations: The Federal rules restrict any use of the information to criminally investigate or prosecute any alcohol or drug abuse patient.[facility] SystemIn the event this information is protected by the Federal Confidentiality of Alcohol and Drug Abuse Patient Records regulations: The Federal rules restrict any use of the information to criminally investigate or prosecute any alcohol or drug abuse patient.[facility] SystemIn the event this information is protected by the Federal Confidentiality of Alcohol and Drug Abuse Patient Records regulations: The Federal rules restrict any use of the information to criminally investigate or prosecute any alcohol or drug abuse patient.[facility] SystemIn the event this information is protected by the Federal Confidentiality of Alcohol and Drug Abuse Patient Records regulations: The Federal rules restrict any use of the information to criminally investigate or prosecute any alcohol or drug abuse patient.[facility]In the event this information is protected by the Federal Confidentiality of Alcohol and Drug Abuse Patient Records regulations: The Federal rules restrict any use of the information to criminally investigate or prosecute any alcohol or drug abuse patient.[facility] SystemIn the event this information is protected by the Federal Confidentiality of Alcohol and Drug Abuse Patient Records regulations: The Federal rules restrict any use of the information to criminally investigate or prosecute any alcohol or drug abuse patient.[facility]In the event this information is protected by the Federal Confidentiality of Alcohol and Drug Abuse Patient Records regulations: The Federal rules restrict any use of the information to criminally investigate or prosecute any alcohol or drug abuse patient.[facility]In the event this information is protected by the Federal Confidentiality of Alcohol and Drug Abuse Patient Records regulations: The Federal rules restrict any use of the information to criminally investigate or prosecute any alcohol or drug abuse patient.[facility]In the event this information is protected by the Federal Confidentiality of Alcohol and Drug Abuse Patient Records regulations: The Federal rules restrict any use of the information to criminally investigate or prosecute any alcohol or drug abuse patient.[facility] SystemIn the event this information is protected by the Federal Confidentiality of Alcohol and Drug Abuse Patient Records regulations: The Federal rules restrict any use of the information to criminally investigate or prosecute any alcohol or drug abuse patient.[facility]In the event this information is protected by the Federal Confidentiality of Alcohol and Drug Abuse Patient Records regulations: The Federal rules restrict any use of the information to criminally investigate or prosecute any alcohol or drug abuse patient.[facility]In the event this information is protected by the Federal Confidentiality of Alcohol and Drug Abuse Patient Records regulations: The Federal rules restrict any use of the information to criminally investigate or prosecute any alcohol or drug abuse patient.[facility]In the event this information is protected by the Federal Confidentiality of Alcohol and Drug Abuse Patient Records regulations: The Federal rules restrict any use of the information to criminally investigate or prosecute any alcohol or drug abuse patient.[facility]In the event this information is protected by the Federal Confidentiality of Alcohol and Drug Abuse Patient Records regulations: The Federal rules restrict any use of the information to criminally investigate or prosecute any alcohol or drug abuse patient.[facility]In the event this information is protected by the Federal Confidentiality of Alcohol and Drug Abuse Patient Records regulations: The Federal rules restrict any use of the information to criminally investigate or prosecute any alcohol or drug abuse patient.[facility]In the event this information is protected by the Federal Confidentiality of Alcohol and Drug Abuse Patient Records regulations: The Federal rules restrict any use of the information to criminally investigate or prosecute any alcohol or drug abuse patient.[facility]In the event this information is protected by the Federal Confidentiality of Alcohol and Drug Abuse Patient Records regulations: The Federal rules restrict any use of the information to criminally investigate or prosecute any alcohol or drug abuse patient.[facility]In the event this information is protected by the Federal Confidentiality of Alcohol and Drug Abuse Patient Records regulations: The Federal rules restrict any use of the information to criminally investigate or prosecute any alcohol or drug abuse patient.[facility]In the event this information is protected by the Federal Confidentiality of Alcohol and Drug Abuse Patient Records regulations: The Federal rules restrict any use of the information to criminally investigate or prosecute any alcohol or drug abuse patient.[facility]In the event this information is protected by the Federal Confidentiality of Alcohol and Drug Abuse Patient Records regulations: The Federal rules restrict any use of the information to criminally investigate or prosecute any alcohol or drug abuse patient.[facility]In the event this information is protected by the Federal Confidentiality of Alcohol and Drug Abuse Patient Records regulations: The Federal rules restrict any use of the information to criminally investigate or prosecute any alcohol or drug abuse patient.[facility]In the event this information is protected by the Federal Confidentiality of Alcohol and Drug Abuse Patient Records regulations: The Federal rules restrict any use of the information to criminally investigate or prosecute any alcohol or drug abuse patient.[facility]In the event this information is protected by the Federal Confidentiality of Alcohol and Drug Abuse Patient Records regulations: The Federal rules restrict any use of the information to criminally investigate or prosecute any alcohol or drug abuse patient.[facility]In the event this information is protected by the Federal Confidentiality of Alcohol and Drug Abuse Patient Records regulations: The Federal rules restrict any use of the information to criminally investigate or prosecute any alcohol or drug abuse patient.[facility]In the event this information is protected by the Federal Confidentiality of Alcohol and Drug Abuse Patient Records regulations: The Federal rules restrict any use of the information to criminally investigate or prosecute any alcohol or drug abuse patient.[facility]In the event this information is protected by the Federal Confidentiality of Alcohol and Drug Abuse Patient Records regulations: The Federal rules restrict any use of the information to criminally investigate or prosecute any alcohol or drug abuse patient.[facility]In the event this information is protected by the Federal Confidentiality of Alcohol and Drug Abuse Patient Records regulations: The Federal rules restrict any use of the information to criminally investigate or prosecute any alcohol or drug abuse patient.[facility]In the event this information is protected by the Federal Confidentiality of Alcohol and Drug Abuse Patient Records regulations: The Federal rules restrict any use of the information to criminally investigate or prosecute any alcohol or drug abuse patient.[facility]In the event this information is protected by the Federal Confidentiality of Alcohol and Drug Abuse Patient Records regulations: The Federal rules restrict any use of the information to criminally investigate or prosecute any alcohol or drug abuse patient.[facility]In the event this information is protected by the Federal Confidentiality of Alcohol and Drug Abuse Patient Records regulations: The Federal rules restrict any use of the information to criminally investigate or prosecute any alcohol or drug abuse patient.[facility]In the event this information is protected by the Federal Confidentiality of Alcohol and Drug Abuse Patient Records regulations: The Federal rules restrict any use of the information to criminally investigate or prosecute any alcohol or drug abuse patient.[facility]In the event this information is protected by the Federal Confidentiality of Alcohol and Drug Abuse Patient Records regulations: The Federal rules restrict any use of the information to criminally investigate or prosecute any alcohol or drug abuse patient.[facility]In the event this information is protected by the Federal Confidentiality of Alcohol and Drug Abuse Patient Records regulations: The Federal rules restrict any use of the information to criminally investigate or prosecute any alcohol or drug abuse patient.[facility]In the event this information is protected by the Federal Confidentiality of Alcohol and Drug Abuse Patient Records regulations: The Federal rules restrict any use of the information to criminally investigate or prosecute any alcohol or drug abuse patient.[facility]In the event this information is protected by the Federal Confidentiality of Alcohol and Drug Abuse Patient Records regulations: The Federal rules restrict any use of the information to criminally investigate or prosecute any alcohol or drug abuse patient.[facility]In the event this information is protected by the Federal Confidentiality of Alcohol and Drug Abuse Patient Records regulations: The Federal rules restrict any use of the information to criminally investigate or prosecute any alcohol or drug abuse patient.[facility]In the event this information is protected by the Federal Confidentiality of Alcohol and Drug Abuse Patient Records regulations: The Federal rules restrict any use of the information to criminally investigate or prosecute any alcohol or drug abuse patient.[facility]In the event this information is protected by the Federal Confidentiality of Alcohol and Drug Abuse Patient Records regulations: The Federal rules restrict any use of the information to criminally investigate or prosecute any alcohol or drug abuse patient.[facility]In the event this information is protected by the Federal Confidentiality of Alcohol and Drug Abuse Patient Records regulations: The Federal rules restrict any use of the information to criminally investigate or prosecute any alcohol or drug abuse patient.[facility]In the event this information is protected by the Federal Confidentiality of Alcohol and Drug Abuse Patient Records regulations: The Federal rules restrict any use of the information to criminally investigate or prosecute any alcohol or drug abuse patient.[facility]In the event this information is protected by the Federal Confidentiality of Alcohol and Drug Abuse Patient Records regulations: The Federal rules restrict any use of the information to criminally investigate or prosecute any alcohol or drug abuse patient.[facility]In the event this information is protected by the Federal Confidentiality of Alcohol and Drug Abuse Patient Records regulations: The Federal rules restrict any use of the information to criminally investigate or prosecute any alcohol or drug abuse patient.[facility]In the event this information is protected by the Federal Confidentiality of Alcohol and Drug Abuse Patient Records regulations: The Federal rules restrict any use of the information to criminally investigate or prosecute any alcohol or drug abuse patient.[facility]In the event this information is protected by the Federal Confidentiality of Alcohol and Drug Abuse Patient Records regulations: The Federal rules restrict any use of the information to criminally investigate or prosecute any alcohol or drug abuse patient.[facility]In the event this information is protected by the Federal Confidentiality of Alcohol and Drug Abuse Patient Records regulations: The Federal rules restrict any use of the information to criminally investigate or prosecute any alcohol or drug abuse patient.[facility]In the event this information is protected by the Federal Confidentiality of Alcohol and Drug Abuse Patient Records regulations: The Federal rules restrict any use of the information to criminally investigate or prosecute any alcohol or drug abuse patient.[facility]In the event this information is protected by the Federal Confidentiality of Alcohol and Drug Abuse Patient Records regulations: The Federal rules restrict any use of the information to criminally investigate or prosecute any alcohol or drug abuse patient.[facility]In the event this information is protected by the Federal Confidentiality of Alcohol and Drug Abuse Patient Records regulations: The Federal rules restrict any use of the information to criminally investigate or prosecute any alcohol or drug abuse patient.[facility]In the event this information is protected by the Federal Confidentiality of Alcohol and Drug Abuse Patient Records regulations: The Federal rules restrict any use of the information to criminally investigate or prosecute any alcohol or drug abuse patient.[facility]In the event this information is protected by the Federal Confidentiality of Alcohol and Drug Abuse Patient Records regulations: The Federal rules restrict any use of the information to criminally investigate or prosecute any alcohol or drug abuse patient.[facility]In the event this information is protected by the Federal Confidentiality of Alcohol and Drug Abuse Patient Records regulations: The Federal rules restrict any use of the information to criminally investigate or prosecute any alcohol or drug abuse patient.[facility]In the event this information is protected by the Federal Confidentiality of Alcohol and Drug Abuse Patient Records regulations: The Federal rules restrict any use of the information to criminally investigate or prosecute any alcohol or drug abuse patient.[facility]In the event this information is protected by the Federal Confidentiality of Alcohol and Drug Abuse Patient Records regulations: The Federal rules restrict any use of the information to criminally investigate or prosecute any alcohol or drug abuse patient.[facility]In the event this information is protected by the Federal Confidentiality of Alcohol and Drug Abuse Patient Records regulations: The Federal rules restrict any use of the information to criminally investigate or prosecute any alcohol or drug abuse patient.[facility]In the event this information is protected by the Federal Confidentiality of Alcohol and Drug Abuse Patient Records regulations: The Federal rules restrict any use of the information to criminally investigate or prosecute any alcohol or drug abuse patient.[facility]In the event this information is protected by the Federal Confidentiality of Alcohol and Drug Abuse Patient Records regulations: The Federal rules restrict any use of the information to criminally investigate or prosecute any alcohol or drug abuse patient.[facility]In the event this information is protected by the Federal Confidentiality of Alcohol and Drug Abuse Patient Records regulations: The Federal rules restrict any use of the information to criminally investigate or prosecute any alcohol or drug abuse patient.[facility] SystemIn the event this information is protected by the Federal Confidentiality of Alcohol and Drug Abuse Patient Records regulations: The Federal rules restrict any use of the information to criminally investigate or prosecute any alcohol or drug abuse patient.[facility] SystemIn the event this information is protected by the Federal Confidentiality of Alcohol and Drug Abuse Patient Records regulations: The Federal rules restrict any use of the information to criminally investigate or prosecute any alcohol or drug abuse patient.[facility] SystemIn the event this information is protected by the Federal Confidentiality of Alcohol and Drug Abuse Patient Records regulations: The Federal rules restrict any use of the information to criminally investigate or prosecute any alcohol or drug abuse patient.[facility] SystemIn the event this information is protected by the Federal Confidentiality of Alcohol and Drug Abuse Patient Records regulations: The Federal rules restrict any use of the information to criminally investigate or prosecute any alcohol or drug abuse patient.[facility] SystemIn the event this information is protected by the Federal Confidentiality of Alcohol and Drug Abuse Patient Records regulations: The Federal rules restrict any use of the information to criminally investigate or prosecute any alcohol or drug abuse patient.[facility] SystemIn the event this information is protected by the Federal Confidentiality of Alcohol and Drug Abuse Patient Records regulations: The Federal rules restrict any use of the information to criminally investigate or prosecute any alcohol or drug abuse patient.[facility] SystemIn the event this information is protected by the Federal Confidentiality of Alcohol and Drug Abuse Patient Records regulations: The Federal rules restrict any use of the information to criminally investigate or prosecute any alcohol or drug abuse patient.[facility] SystemIn the event this information is protected by the Federal Confidentiality of Alcohol and Drug Abuse Patient Records regulations: The Federal rules restrict any use of the information to criminally investigate or prosecute any alcohol or drug abuse patient.[facility] SystemIn the event this information is protected by the Federal Confidentiality of Alcohol and Drug Abuse Patient Records regulations: The Federal rules restrict any use of the information to criminally investigate or prosecute any alcohol or drug abuse patient.[facility] SystemIn the event this information is protected by the Federal Confidentiality of Alcohol and Drug Abuse Patient Records regulations: The Federal rules restrict any use of the information to criminally investigate or prosecute any alcohol or drug abuse patient.[facility] SystemIn the event this information is protected by the Federal Confidentiality of Alcohol and Drug Abuse Patient Records regulations: The Federal rules restrict any use of the information to criminally investigate or prosecute any alcohol or drug abuse patient.[facility] SystemIn the event this information is protected by the Federal Confidentiality of Alcohol and Drug Abuse Patient Records regulations: The Federal rules restrict any use of the information to criminally investigate or prosecute any alcohol or drug abuse patient.[facility] SystemIn the event this information is protected by the Federal Confidentiality of Alcohol and Drug Abuse Patient Records regulations: The Federal rules restrict any use of the information to criminally investigate or prosecute any alcohol or drug abuse patient.[facility] SystemIn the event this information is protected by the Federal Confidentiality of Alcohol and Drug Abuse Patient Records regulations: The Federal rules restrict any use of the information to criminally investigate or prosecute any alcohol or drug abuse patient.[facility] SystemIn the event this information is protected by the Federal Confidentiality of Alcohol and Drug Abuse Patient Records regulations: The Federal rules restrict any use of the information to criminally investigate or prosecute any alcohol or drug abuse patient.[facility] SystemIn the event this information is protected by the Federal Confidentiality of Alcohol and Drug Abuse Patient Records regulations: The Federal rules restrict any use of the information to criminally investigate or prosecute any alcohol or drug abuse patient.[facility] SystemIn the event this information is protected by the Federal Confidentiality of Alcohol and Drug Abuse Patient Records regulations: The Federal rules restrict any use of the information to criminally investigate or prosecute any alcohol or drug abuse patient.[facility] SystemIn the event this information is protected by the Federal Confidentiality of Alcohol and Drug Abuse Patient Records regulations: The Federal rules restrict any use of the information to criminally investigate or prosecute any alcohol or drug abuse patient.[facility] SystemIn the event this information is protected by the Federal Confidentiality of Alcohol and Drug Abuse Patient Records regulations: The Federal rules restrict any use of the information to criminally investigate or prosecute any alcohol or drug abuse patient.[facility] SystemIn the event this information is protected by the Federal Confidentiality of Alcohol and Drug Abuse Patient Records regulations: The Federal rules restrict any use of the information to criminally investigate or prosecute any alcohol or drug abuse patient.[facility] SystemIn the event this information is protected by the Federal Confidentiality of Alcohol and Drug Abuse Patient Records regulations: The Federal rules restrict any use of the information to criminally investigate or prosecute any alcohol or drug abuse patient.[facility] SystemIn the event this information is protected by the Federal Confidentiality of Alcohol and Drug Abuse Patient Records regulations: The Federal rules restrict any use of the information to criminally investigate or prosecute any alcohol or drug abuse patient.[facility] SystemIn the event this information is protected by the Federal Confidentiality of Alcohol and Drug Abuse Patient Records regulations: The Federal rules restrict any use of the information to criminally investigate or prosecute any alcohol or drug abuse patient.[facility] SystemIn the event this information is protected by the Federal Confidentiality of Alcohol and Drug Abuse Patient Records regulations: The Federal rules restrict any use of the information to criminally investigate or prosecute any alcohol or drug abuse patient.[facility] SystemIn the event this information is protected by the Federal Confidentiality of Alcohol and Drug Abuse Patient Records regulations: The Federal rules restrict any use of the information to criminally investigate or prosecute any alcohol or drug abuse patient.[facility] SystemIn the event this information is protected by the Federal Confidentiality of Alcohol and Drug Abuse Patient Records regulations: The Federal rules restrict any use of the information to criminally investigate or prosecute any alcohol or drug abuse patient.[facility] SystemIn the event this information is protected by the Federal Confidentiality of Alcohol and Drug Abuse Patient Records regulations: The Federal rules restrict any use of the information to criminally investigate or prosecute any alcohol or drug abuse patient.[facility] SystemIn the event this information is protected by the Federal Confidentiality of Alcohol and Drug Abuse Patient Records regulations: The Federal rules restrict any use of the information to criminally investigate or prosecute any alcohol or drug abuse patient.[facility] SystemIn the event this information is protected by the Federal Confidentiality of Alcohol and Drug Abuse Patient Records regulations: The Federal rules restrict any use of the information to criminally investigate or prosecute any alcohol or drug abuse patient.[facility] SystemIn the event this information is protected by the Federal Confidentiality of Alcohol and Drug Abuse Patient Records regulations: The Federal rules restrict any use of the information to criminally investigate or prosecute any alcohol or drug abuse patient.[facility] SystemIn the event this information is protected by the Federal Confidentiality of Alcohol and Drug Abuse Patient Records regulations: The Federal rules restrict any use of the information to criminally investigate or prosecute any alcohol or drug abuse patient.[facility] SystemIn the event this information is protected by the Federal Confidentiality of Alcohol and Drug Abuse Patient Records regulations: The Federal rules restrict any use of the information to criminally investigate or prosecute any alcohol or drug abuse patient.[facility] SystemIn the event this information is protected by the Federal Confidentiality of Alcohol and Drug Abuse Patient Records regulations: The Federal rules restrict any use of the information to criminally investigate or prosecute any alcohol or drug abuse patient.[facility] SystemIn the event this information is protected by the Federal Confidentiality of Alcohol and Drug Abuse Patient Records regulations: The Federal rules restrict any use of the information to criminally investigate or prosecute any alcohol or drug abuse patient.[facility] SystemIn the event this information is protected by the Federal Confidentiality of Alcohol and Drug Abuse Patient Records regulations: The Federal rules restrict any use of the information to criminally investigate or prosecute any alcohol or drug abuse patient.[facility] SystemIn the event this information is protected by the Federal Confidentiality of Alcohol and Drug Abuse Patient Records regulations: The Federal rules restrict any use of the information to criminally investigate or prosecute any alcohol or drug abuse patient.[facility] SystemIn the event this information is protected by the Federal Confidentiality of Alcohol and Drug Abuse Patient Records regulations: The Federal rules restrict any use of the information to criminally investigate or prosecute any alcohol or drug abuse patient.[facility] SystemIn the event this information is protected by the Federal Confidentiality of Alcohol and Drug Abuse Patient Records regulations: The Federal rules restrict any use of the information to criminally investigate or prosecute any alcohol or drug abuse patient.[facility] Reason for Visit (unrecogniz ed section and content) Reason Comments Physical Therapy Specialty Diagnoses / Procedures Referred By Micheline vang Referred To Contact Physical Therapy / PHYSICAL THERAPY Diagnoses Achilles tendinosis of left lower extremity Procedures CONSULT [place] [address] [place] [address] [facility] [address] [place] [address] Referral ID Status Reason Start Date Expiration Date V isits Requested Visits Authorized [id number] Authorized 11/28/2021 06/15/2022 99 99 Reason Comments Wound Check Suture Removal Post Op Reason Comments Cystoscopy-1 Reason Comments Wound Check Post Op Reason Onset Date Comments Refill Request 09/26/2021 Reason Comments Medication Follow-up Reason Comments New Patient Reason Comments Post Op Reason Comments PAP Therapy Follow Up Reason Comments PT Eval Reason Comments Follow Up Established Patient Reason Comments Rectal Problem Reason Comments Consult Thrombosed Hemorrhoi d Reason Comments Follow Up thrombosed hemorrhoi d Specialty Diagnoses / Procedures Referred By Micheline vang Referred To Contact General Surgery Diagnoses Thrombosed hemorrhoids Procedures CONSULT TO GENERAL SURGERY OFFICE/OUTPATIENT [facility] 60-74 MINUTES Chayo Hickey MD [address] [place] [address] Referral ID Status Reason Start Date Expiration Date V isits Requested Visits Authorized [id number] Closed PCP Requested Referral 12/05/2021 12/05/2022 1 1 Reason Comments Follow Up Reason Comments Results Reason Comments Patient Question Reason Comments Physical Concerned with incre ased joint pain. Only getting 8 cialis at each fill. [facility]. Reason Comments Appointment Reason Comments Patient Question Testosterone Reason Comments Patient Update Reason Comments Erroneous encounter-disregard Reason Comments Insurance Authorization Testosterone Reason Onset Date Comments Refill Request 04/08/2022 Reason Onset Date Comments Refill Request 05/11/2022 Reason Onset Date Comments Refill Request 06/09/2022 Reason Comments PAP Therapy Follow Up 06/22/22 - 07/21/22 Reason Comments Follow Up 6 month - patient re ports using ibuprofen daily for generalized aches and pains 400 mg BID. Wants to discuss testosterone. Reason Comments Established Patient Reason Comments [place] Palsy [facility] 08/20/2022 Reason Onset Date Comments Refill Request 09/05/2022 Reason Onset Date Comments Refill Request 09/16/2022 Reason Onset Date Comments Refill Request 11/19/2022 Reason Comments Follow Up Medication Follow-up Sleep Apnea Reason Comments Physical Wants to discuss le nts and body aching, noticed after started the metformin and is taking 8 ibuprofen a day. And lump on right shoulder. Reason Comments Consult [facility], Dx of JOSÉ MIGUEL, PSG 09/29/20, struggling with CPAP Reason Comments Established Patient Rx Refills Reason Comments Consult Consultation mass ri ght shoulder. Specialty Diagnoses / Procedures Referred By Micheline vang Referred To Contact General Surgery Diagnoses Lipoma of right shoulder Procedures CONSULT TO GENERAL SURGERY OFFICE/OUTPATIENT [facility] 60-74 MINUTES Chayo Hickey MD [address] [place] [address] Referral ID Status Reason Start Date Expiration Date V isits Requested Visits Authorized [id number] Closed PCP Requested Referral 03/17/2023 03/16/2024 1 1 Reason Onset Date Comments Refill Request 04/13/2023 Reason Comments Back Pain Mid back R side, sta pia feels knot, hard be moving today, back pain been goingon for a few weeks Reason Comments PAP Therapy Follow Up 07/22/23 - 08/20/23 Reason Comments F/U 3 Month Reason Comments F/U 3 Month Reason Onset Date Comments Refill Request 10/12/2023 Reason Comments Dizziness Patient reports he w ill get sweaty and then nauseated. Has been going on about 10 days. Patient reports blood sugars have been good. Reason Comments Established Patient Follow Up Reason Comments Results Reason Comments Orders psg Reason Comments Refill Request Reason Comments New Patient Nodule Specialty Diagnoses / Procedures Referred By Contac t Referred To Contact Pulmonary and Critical Care Medicine Diagnoses Bronchiolitis Lung nodules Procedures CONSULT TO PULM/CRITICAL CARE OFFICE/OUTPATIENT NEW HIGH MDM 60 MINUTES Chayo Hickey MD [address] [place] [address] Referral ID Status Reason Start Date Expiration Date V isits Requested Visits Authorized [id number] Closed PCP Requested Referral 12/06/2023 12/05/2024 1 1 Reason Onset Date Comments Refill Request 12/24/2023 Reason Onset Date Comments Refill Request 01/23/2024 Specialty Diagnoses / Procedures Referred By Contac t Referred To Contact CT IMAGING Diagnoses Abnormal chest x-ray with multiple lung nodules Procedures CT CHEST WO IVCON DIAGNOSTIC COMPUTED TOMOGRAPHY THORAX W/O CNTRST Chayo Hickey MD [address] [place] [address] [place] [address] Referral ID Status Reason Start Date Expiration Date V isits Requested Visits Authorized [id number] Closed Auto-Generated Referral Clearance Not Met -Financial Clearance Bypassed 12/05/2023 01/03/2024 1 1 Reason Comments PSG Check In Reason Comments F/U 6 months Chest Pain That comes sometimes that feels like an electric shot Reason Comments Recheck Nodule Reason Comments Radiology CT Specialty Diagnoses / Procedures Referred By Contac t Referred To Contact CT IMAGING Diagnoses Lung nodules Procedures CT CHEST WO IVCON DIAGNOSTIC COMPUTED TOMOGRAPHY THORAX W/O CNTRST Raisa Han, [employer] [address] [place] [address] [facility] [place] [address] Referral ID Status Reason Start Date Expiration Date V isits Requested Visits Authorized [id number] Closed Auto-Generate d Referral 02/12/2024 03/12/2024 1 1 Reason Comments Results Stress Test Reason Comments Radiology XR Reason Onset Date Comments Refill Request 04/04/2024 Reason Onset Date Comments Refill Request 04/26/2024 Reason Onset Date Comments Refill Request 05/09/2024 Reason Onset Date Comments Refill Request 05/18/2024 Reason Onset Date Comments Refill Request 05/21/2024 Reason Onset Date Comments Refill Request 06/05/2024 Reason Onset Date Comments Refill Request 06/21/2024 Reason Comments Chest Congestion cough, chills, burni ng in sinus and chest x 3 days Reason Onset Date Comments Refill Request 07/13/2024 Reason Onset Date Comments Refill Request 07/28/2024 Reason Comments 6 Month Exam Reason Comments PAP Therapy Follow Up Download Reason Onset Date Comments Refill Request 10/28/2024 Reason Comments Same Day Appointment mid back pain on ri ght side x 2 weeks and getting worse Reason Comments Follow Up [facility] consult Specialty Diagnoses / Procedures Referred By Micheline vang Referred To Contact Ent - Otolaryngology Diagnoses JOSÉ MIGUEL on CPAP Procedures CONSULT TO SLEEP SURGERY-ADULT Jaden Man, [address] [place] [address] Phone: tel: fax: Referral ID Status Reason Start Date Expiration Date V isits Requested Visits Authorized [id number] Closed PCP Requested Referral 12/05/2023 11/25/2024 1 1 Reason Comments Back Pain Mid R side back pain x1 day, 10/30 for same, unsure of cause Reason Comments Established Patient Reason Onset Date Comments Refill Request 12/08/2024 Reason Onset Date Comments Refill Request 12/22/2024 Reason Onset Date Comments Refill Request 12/30/2024 Reason Onset Date Comments Refill Request 02/16/2025 Reason Onset Date Comments Refill Request 02/18/2025 Reason Onset Date Comments Refill Request 02/26/2025 Reason Comments 6 Month Exam Pain Aching from waist do wn. Ongoing for a few months. Taking excessive amounts of Ibuprofen to keep pain under control. Has access to PT at his work and when he saw PT they noticed a lot of cracking and popping noises in his hips and knees. Care Teams (unrecognized sec tion and content) Hand Mica Plate Layer Relationship Specialty Start Date End Date Chayo Hickey MD [address] [place] [address] PCP - General Family Practice 08/03/19 Hand Mica Plate Layer Relationship Specialty Start Date End Date Chayo Hickey MD [address] [place] [address] PCP - General Family Practice 08/03/19 Hand Mica Plate Layer Relationship Specialty Start Date End Date Chayo Hickey MD [facility] [place] [address] PCP - General Family Practice 08/03/19 Hand Mica Plate Layer Relationship Specialty Start Date End Date Chayo Hickey MD [address] [place] [address] PCP - General Family Practice 08/03/19 Hand Mica Plate Layer Relationship Specialty Start Date End Date Chayo Hickey MD [address] [place] [address] PCP - General Family Practice 08/03/19 Hand Mica Plate Layer Relationship Specialty Start Date End Date Chayo Hickey MD [address] [place] [address] PCP - General Family Practice 08/03/19 Hand Mica Plate Layer Relationship Specialty Start Date End Date Chayo Hickey MD [facility] [place] [address] PCP - General Family Practice 08/03/19 Hand Mica Plate Layer Relationship Specialty Start Date End Date Chayo Hickey MD [facility] [place] [address] PCP - General Family Practice 08/03/19 Hand Mica Plate Layer Relationship Specialty Start Date End Date Chayo Hickey MD [address] [place] [address] PCP - General Family Practice 08/03/19 Hand Mica Plate Layer Relationship Specialty Start Date End Date Chayo Hickey MD [address] [place] [address] PCP - General Family Practice 08/03/19 Hand Mica Plate Layer Relationship Specialty Start Date End Date Chayo Hickey MD [address] [place] [address] PCP - General Family Practice 08/03/19 Hand Mica Plate Layer Relationship Specialty Start Date End Date Chayo Hickey MD [facility] [place] [address] PCP - General Family Practice 08/03/19 Hand Mica Plate Layer Relationship Specialty Start Date End Date Chayo Hickey MD [address] [place] [address] PCP - General Family Practice 08/03/19 Hand Mica Plate Layer Relationship Specialty Start Date End Date Chayo Hickey MD [address] [place] [address] PCP - General Family Practice 08/03/19 Hand Mica Plate Layer Relationship Specialty Start Date End Date Chayo Hickey MD [address] [place] [address] PCP - General Family Practice 08/03/19 Hand Mica Plate Layer Relationship Specialty Start Date End Date Chayo Hickey MD [address] [place] [address] PCP - General Family Medicine 08/03/19 Hand Mica Plate Layer Relationship Specialty Start Date End Date Chayo Hickey MD [address] [place] [address] PCP - General Family Medicine 08/03/19 Hand Mica Plate Layer Relationship Specialty Start Date End Date Chayo Hickey MD [address] [place] [address] PCP - General Family Medicine 08/03/19 Hand Mica Plate Layer Relationship Specialty Start Date End Date Chayo Hickey MD [address] [place] [address] PCP - General Family Medicine 08/03/19 Hand Mica Plate Layer Relationship Specialty Start Date End Date Chayo Hickey MD [facility] [place] [address] PCP - General Family Medicine 08/03/19 Hand Mica Plate Layer Relationship Specialty Start Date End Date Chayo Hickey MD [address] [place] [address] PCP - General Family Medicine 08/03/19 Hand Mica Plate Layer Relationship Specialty Start Date End Date Chayo Hickey MD [address] [place] [address] PCP - General Family Medicine 08/03/19 Hand Mica Plate Layer Relationship Specialty Start Date End Date Chayo Hickey MD [address] [place] [address] PCP - General Family Medicine 08/03/19 Hand Mica Plate Layer Relationship Specialty Start Date End Date Chayo Hickey MD [facility] [place] [address] PCP - General Family Medicine 08/03/19 Hand Mica Plate Layer Relationship Specialty Start Date End Date Chayo Hickey MD [address] [place] [address] PCP - General Family Medicine 08/03/19 Hand Mica Plate Layer Relationship Specialty Start Date End Date Chayo Hickey MD [address] [place] [address] PCP - General Family Medicine 08/03/19 Hand Mica Plate Layer Relationship Specialty Start Date End Date Chayo Hickey MD [address] [place] [address] PCP - General Family Medicine 08/03/19 Hand Mica Plate Layer Relationship Specialty Start Date End Date Chayo Hickey MD [address] [place] [address] PCP - General Family Medicine 08/03/19 Hand Mica Plate Layer Relationship Specialty Start Date End Date Chayo Hickey MD [address] [place] [address] PCP - General Family Medicine 08/03/19 Hand Mica Plate Layer Relationship Specialty Start Date End Date Chayo Hickey MD [address] [place] [address] PCP - General Family Medicine 08/03/19 Hand Mica Plate Layer Relationship Specialty Start Date End Date Chayo Hickey MD [address] [place] [address] PCP - General Family Medicine 08/03/19 Hand Mica Plate Layer Relationship Specialty Start Date End Date Chayo Hickey MD [address] [place] [address] PCP - General Family Medicine 08/03/19 Hand Mica Plate Layer Relationship Specialty Start Date End Date Chayo Hickey MD [address] [place] [address] PCP - General Family Medicine 08/03/19 Hand Mica Plate Layer Relationship Specialty Start Date End Date Chayo Hickey MD [address] [place] [address] PCP - General Family Medicine 08/03/19 Hand Mica Plate Layer Relationship Specialty Start Date End Date Chayo Hickey MD [address] [place] [address] PCP - General Family Medicine 08/03/19 Hand Mica Plate Layer Relationship Specialty Start Date End Date Chayo Hickey MD [address] [place] [address] PCP - General Family Medicine 08/03/19 Hand Mica Plate Layer Relationship Specialty Start Date End Date Podlogar, Genesis, BURIAL VAULT MAKER.STOGY ROLLER [address] [place] [address] PCP - General Family Medicine 03/28/23 Hand Mica Plate Layer Relationship Specialty Start Date End Date Podlogar, Genesis, BURIAL VAULT MAKER.STOGY ROLLER [address] [place] [address] PCP - General Family Medicine 03/28/23 Hand Mica Plate Layer Relationship Specialty Start Date End Date Podlogar, Genesis, BURIAL VAULT MAKER.STOGY ROLLER [address] [place] [address] PCP - General Family Medicine 03/28/23 Hand Mica Plate Layer Relationship Specialty Start Date End Date Podlogar, Genesis, BURIAL VAULT MAKER.STOGY ROLLER [address] [place] [address] PCP - General Family Medicine 03/28/23 Hand Mica Plate Layer Relationship Specialty Start Date End Date Podlogar, Genesis, BURIAL VAULT MAKER.STOGY ROLLER [address] [place] [address] PCP - General Family Medicine 03/28/23 Hand Mica Plate Layer Relationship Specialty Start Date End Date Podlogar, Genesis, BURIAL VAULT MAKER.STOGY ROLLER [address] [place] [address] PCP - General Family Medicine 03/28/23 Hand Mica Plate Layer Relationship Specialty Start Date End Date Podlogar, Genesis, BURIAL VAULT MAKER.STOGY ROLLER [address] [place] [address] PCP - General Family Medicine 03/28/23 Hand Mica Plate Layer Relationship Specialty Start Date End Date Podlogar, Genesis, BURIAL VAULT MAKER.STOGY ROLLER [address] [place] [address] PCP - General Family Medicine 03/28/23 Hand Mica Plate Layer Relationship Specialty Start Date End Date Chayo Hickey MD [address] [place] [address] PCP - General Family Medicine 06/25/23 Hand Mica Plate Layer Relationship Specialty Start Date End Date Chayo Hickey MD [address] [place] [address] PCP - General Family Medicine 06/25/23 Hand Mica Plate Layer Relationship Specialty Start Date End Date Chayo Hickey MD [address] [place] [address] PCP - General Family Medicine 06/25/23 Hand Mica Plate Layer Relationship Specialty Start Date End Date Chayo Hickey MD [address] [place] [address] PCP - General Family Medicine 06/25/23 Hand Mica Plate Layer Relationship Specialty Start Date End Date Chayo Hickey MD [address] [place] [address] PCP - General Family Medicine 06/25/23 Hand Mica Plate Layer Relationship Specialty Start Date End Date Chayo Hickey MD [address] [place] [address] PCP - General Family Medicine 06/25/23 Hand Mica Plate Layer Relationship Specialty Start Date End Date Chayo Hickey MD [address] [place] [address] PCP - General Family Medicine 06/25/23 Hand Mica Plate Layer Relationship Specialty Start Date End Date Chayo Hickey MD [address] [place] [address] PCP - General Family Medicine 06/25/23 Hand Mica Plate Layer Relationship Specialty Start Date End Date Chayo Hickey MD [address] [place] [address] PCP - General Family Medicine 06/25/23 Hand Mica Plate Layer Relationship Specialty Start Date End Date Chayo Hickey MD [address] [place] [address] PCP - General Family Medicine 06/25/23 Hand Mica Plate Layer Relationship Specialty Start Date End Date Chayo Hickey MD [address] [place] [address] PCP - General Family Medicine 06/25/23 Hand Mica Plate Layer Relationship Specialty Start Date End Date Chayo Hickey MD [address] [place] [address] PCP - General Family Medicine 06/25/23 Hand Mica Plate Layer Relationship Specialty Start Date End Date Chayo Hickey MD [address] [place] [address] PCP - General Family Medicine 06/25/23 Hand Mica Plate Layer Relationship Specialty Start Date End Date Chayo Hickey MD [address] [place] [address] PCP - General Family Medicine 06/25/23 Hand Mica Plate Layer Relationship Specialty Start Date End Date Chayo Hickey MD [address] [place] [address] PCP - General Family Medicine 06/25/23 Hand Mica Plate Layer Relationship Specialty Start Date End Date Chayo Hickey MD [address] [place] [address] PCP - General Family Medicine 06/25/23 Hand Mica Plate Layer Relationship Specialty Start Date End Date Chayo Hickey MD [address] [place] [address] PCP - General Family Medicine 06/25/23 Hand Mica Plate Layer Relationship Specialty Start Date End Date Chayo Hickey MD [address] [place] [address] PCP - General Family Medicine 06/25/23 Hand Mica Plate Layer Relationship Specialty Start Date End Date Chayo Hickey MD [address] [place] [address] PCP - General Family Medicine 06/25/23 Hand Mica Plate Layer Relationship Specialty Start Date End Date Chayo Hickey MD [address] [place] [address] PCP - General Family Medicine 06/25/23 Hand Mica Plate Layer Relationship Specialty Start Date End Date Chayo Hickey MD [address] [place] [address] PCP - General Family Medicine 06/25/23 Hand Mica Plate Layer Relationship Specialty Start Date End Date Chayo Hickey MD [address] [place] [address] PCP - General Family Medicine 06/25/23 Hand Mica Plate Layer Relationship Specialty Start Date End Date Chayo Hickey MD [address] [place] [address] PCP - General Family Medicine 06/25/23 Hand Mica Plate Layer Relationship Specialty Start Date End Date Chayo Hickey MD [address] [place] [address] PCP - General Family Medicine 06/25/23 Hand Mica Plate Layer Relationship Specialty Start Date End Date Chayo Hickey MD [address] [place] [address] PCP - General Family Medicine 06/25/23 Hand Mica Plate Layer Relationship Specialty Start Date End Date Chayo Hickey MD [address] [place] [address] PCP - General Family Medicine 08/03/19 03/27/23 Hand Mica Plate Layer Relationship Specialty Start Date End Date Chayo Hickey MD [address] [place] [address] PCP - General Family Medicine 06/25/23 Hand Mica Plate Layer Relationship Specialty Start Date End Date Chayo Hickey MD [address] [place] [address] PCP - General Family Medicine 06/25/23 Hand Mica Plate Layer Relationship Specialty Start Date End Date Chayo Hickey MD [address] [place] [address] PCP - General Family Medicine 06/25/23 Hand Mica Plate Layer Relationship Specialty Start Date End Date Chayo Hickey MD [address] [place] [address] PCP - General Family Medicine 06/25/23 Podlogar, Genesis, BURIAL VAULT MAKER.STOGY ROLLER [address] [place] [address] Associate Web Developer Family Medicine 05/22/24 Hand Mica Plate Layer Relationship Specialty Start Date End Date Chayo Hickey MD [address] [place] [address] PCP - General Family Medicine 06/25/23 Podlogar, Genesis, BURIAL VAULT MAKER.STOGY ROLLER [address] [place] [address] Associate Web Developer Family Medicine 05/22/24 Hand Mica Plate Layer Relationship Specialty Start Date End Date Chayo Hickey MD [address] [place] [address] PCP - General Family Medicine 06/25/23 Podlogar, Genesis, BURIAL VAULT MAKER.STOGY ROLLER [address] [place] [address] Associate Web Developer Family [facility] 05/22/24 Hand Mica Plate Layer Relationship Specialty Start Date End Date Chayo Hickey MD [address] [place] [address] PCP - General Family Medicine 06/25/23 Podlogar, Genesis, BURIAL VAULT MAKER.STOGY ROLLER [address] [facility] [place] [address] [facility]/24 Hand Mica Plate Layer Relationship Specialty Start Date End Date Chayo Hickey MD [address] [facility] [place] [address] PCP - General Family Medicine 06/25/23 Podlogar, Genesis, BURIAL VAULT MAKER.STOGY ROLLER [address] [place] [address] [facility] 05/22/24 Hand Mica Plate Layer Relationship Specialty Start Date End Date Chayo Hickey MD [address] [facility] [place] [address] PCP - General Family Medicine 06/25/23 Podlogar, Genesis, BURIAL VAULT MAKER.STOGY ROLLER [address] [facility] [place] [address] [facility] 05/22/24 Hand Mica Plate Layer Relationship Specialty Start Date End Date Chayo Hickey MD [address] [facility] [place] [address] PCP - General Family Medicine 06/25/23 Podlogar, Genesis, BURIAL VAULT MAKER.STOGY ROLLER [address] [place] [address] Associate Web Developer Family Medicine 05/22/24 Hand Mica Plate Layer Relationship Specialty Start Date End Date Chayo Hickey MD [address] [facility], [place] [id number] [phone] PCP - General Family Medicine 06/25/23 Podlogar, BRITTANY Hurtado.STOGY ROLLER [address] [place] [address] Associate Web Developer Family Medicine 05/22/24 Candace Aquino APRN.STOGY ROLLER [address] [place] [address] [facility] Medicine 08/27/24 Hand Mica Plate Layer Relationship Specialty Start Date End Date Chayo Hickey MD [address] [place] [address] PCP - General Family Medicine 06/25/23 Podlogar, ALYCIA HurtadoN.STOGY ROLLER [address] [place] [address] Associate Web Developer Family Medicine 05/22/24 Candace Aquino BURIAL VAULT MAKER.STOGY ROLLER [address] [place] [address] [facility] Family Medicine 08/27/24 Hand Mica Plate Layer Relationship Specialty Start Date End Date Chayo Hickey MD [address] [place] [address] PCP - General Family Medicine 06/25/23 Podlogar, Genesis BURIAL VAULT MAKER.STOGY ROLLER [address] [place] [address] [facility] 05/22/24 Candace Aquino BURIAL VAULT MAKER.STOGY ROLLER [address] [place] [address] [facility] 08/27/24 Hand Mica Plate Layer Relationship Specialty Start Date End Date Chayo Hickey MD [address] [place] [address] PCP - General Family Medicine 06/25/23 PodlogarGenesis APRN.STOGY ROLLER [address] [place] [address] [facility] 05/22/24 Candace Aquino APRN.STOGY ROLLER [address] [place] [address] [facility] 08/27/24 Hand Mica Plate Layer Relationship Specialty Start Date End Date Chayo Hickey MD [address] [place] [address] PCP - General Family Medicine 06/25/23 PodlogarGenesis APRN.STOGY ROLLER [address] [place] [address] [facility] Medicine 05/22/24 Candace Aquino BURIAL VAULT MAKER.STOGY ROLLER [address] [place] [address] [facility] Medicine 09/06/24 Hand Mica Plate Layer Relationship Specialty Start Date End Date Chayo Hickey MD [address] [place] [address] PCP - General Family Medicine 06/25/23 Podlogar, BRITTANY Hurtado.STOGY ROLLER [address] [place] [address] Associate Web Developer Family Medicine 05/22/24 Candace Aquino APRN.STOGY ROLLER [address] [place] [address] Associate Web Developer Family Medicine 09/06/24 Hand Mica Plate Layer Relationship Specialty Start Date End Date Chayo Hickey MD [address] [place] [address] PCP - General Family Medicine 06/25/23 Podlogar, BRITTANY Hurtado.STOGY ROLLER [address] [place] [address] Associate Web Developer Family Medicine 05/22/24 Candace Aquino BURIAL VAULT MAKER.STOGY ROLLER [address] [place] [address] Associate Web Developer Family Medicine 09/06/24 Hand Mica Plate Layer Relationship Specialty Start Date End Date Chayo Hickey MD [address] [place] [address] PCP - General Family Medicine 06/25/23 Podlogar, Genesis, BURIAL VAULT MAKER.STOGY ROLLER [address] [place] [address] Associate Web Developer Family Medicine 05/22/24 Candace Aquino APRN.STOGY ROLLER [address] [place] [address] Associate Web Developer Family Medicine 09/06/24 Hand Mica Plate Layer Relationship Specialty Start Date End Date Chayo Hickey MD [address] [place] [address] PCP - General Family Medicine 06/25/23 PodlogarGenesis APRN.STOGY ROLLER [address] [place] [address] Associate Web Developer Family Medicine 05/22/24 Candace Aquino APRN.STOGY ROLLER [address] [place] [address] Associate Web Developer Family Medicine 09/06/24 Hand Mica Plate Layer Relationship Specialty Start Date End Date Chayo Hickey MD [address] [place] [address] PCP - General Family Medicine 06/25/23 PodlogarGenesis APRN.STOGY ROLLER [address] [place] [address] Associate Web Developer Family Medicine 05/22/24 Candace Aquino APRN.STOGY ROLLER [address] [place] [address] Associate Web Developer Family Medicine 09/06/24 Hand Mica Plate Layer Relationship Specialty Start Date End Date Chayo Hickey MD [address] [place] [address] PCP - General Family Medicine 06/25/23 SchuylerlogarGenesis APRN.STOGY ROLLER [address] [place] [address] Associate Web Developer Family Medicine 05/22/24 Candace Aquino APRN.STOGY ROLLER [address] [place] [address] Associate Web Developer Family Medicine 08/27/24 09/05/24 Candace Aquino APRN.STOGY ROLLER [address] [place], [place] [address] Associate Web Developer Family [facility] 09/06/24 Hand Mica Plate Layer Relationship Specialty Start Date End Date Chayo Hickey MD [address] [place] [address] PCP - General Family Medicine 06/25/23 Podlogar, BRITTANY Hurtado.STOGY ROLLER [address] [place] [address] [facility] 05/22/24 Hand Mica Plate Layer Relationship Specialty Start Date End Date Chayo Hickey MD [address] [place] [address] PCP - General Family Medicine 06/25/23 Podlogar, BRITTANY Hurtado.STOGY ROLLER [address] [place] [address] Associate Web Developer Family Medicine 05/22/24 Hand Mica Plate Layer Relationship Specialty Start Date End Date Chayo Hickey MD [address] [place] [address] PCP - General Family Medicine 06/25/23 Podlogar, ALYCIA HurtadoN.STOGY ROLLER [address] [place] [address] [facility] 05/[facility]/24 Hand Mica Plate Layer Relationship Specialty Start Date End Date Chayo Hickey MD [address] [place] [address] PCP - General Family Medicine 06/25/23 PodlogarGenesis APRN.STOGY ROLLER [address] [place] [address] Associate Web Developer Family Medicine 05/22/24 Candace Aquino APRN.STOGY ROLLER [address] [place] [address] Associate Web Developer Family Medicine 11/25/24 Hand Mica Plate Layer Relationship Specialty Start Date End Date Chayo Hickey MD [address] [place] [address] PCP - General Family Medicine 06/25/23 PodlogarGenesis APRN.STOGY ROLLER [address] [place] [address] Associate Web Developer Family Medicine 05/22/24 Candace Aquino APRN.STOGY ROLLER [address] [place] [address] Associate Web Developer Family Medicine 11/25/24 Hand Mica Plate Layer Relationship Specialty Start Date End Date Chayo Hickey MD [address] [place] [address] PCP - General Family Medicine 06/25/23 PodlogarGenesis APRN.STOGY ROLLER [address] [place] [address] Associate Web Developer Family Medicine 05/22/24 Candace Aquino APRN.STOGY ROLLER [address] [place] [address] [facility] 11/25/24 Hand Mica Plate Layer Relationship Specialty Start Date End Date Chayo Hickey MD [address] [place], [place] [address] PCP - General [facility] Medicine 06/25/23 PodlogarGenesis APRN.STOGY ROLLER [address] [place], [place] [address] [facility] 05/22/24 Candace Aquino APRN.STOGY ROLLER [address] [place], [place] [address] [facility] 11/25/24 Hand Mica Plate Layer Relationship Specialty Start Date End Date Chayo Hickey MD [address] [place] [address] PCP - General [facility] Medicine 06/25/23 SchuylerlogarGenesis BURIAL VAULT MAKER.STOGY ROLLER [address] [place], [place] [address] [facility] 05/22/24 Candace Aquino APRN.STOGY ROLLER [address] [place], [place] [id number] [facility] 11/25/24 FOR RECORDS PERTAINING TO PATIENTS WHO ARE OR HAVE BEEN ENROLLED IN A CHEMICAL DEPENDENCY/SUBSTANCEABUSE PROGRAM, SOME INFORMATION MAY BE OMITTED. This clinical summary was aggregated from multiple sources. Caution should be exercised in using it in the provision of clinical care. This summary normalizes information from multiple sources, and as a consequence, information in this document may materially change the coding, format and clinical context of patient data. In addition, data may be omitted in some cases. CLINICAL DECISIONS SHOULD BE BASED ON THE PRIMARY CLINICAL RECORDS. [facility] [employer] provides no warranty or guarantee of the accuracy or completeness of information in this document.
--- NOTE | 2025-06-14 03:00 | EX.ED.DYSGE1 ---
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 He states that overall he has been feeling normal but noticed slight numbness and tingling to his tongue roughly 24 hours ago. He states that he went to bed at 8 PM overall feeling normal then awoke around 130/2 AM to get up for work. When he did this he noticed that his right side of his face felt off and when he looked in the mirror he noticed facial droop and difficulty speaking and secondary to this comes to the hospital for evaluation [facility] Medical History Oswald's palsy High cholesterol Hypertension Home Medications ?Medication ?Instructions ?Recorded ?Last Taken ?Type atorvastatin 20 mg tablet 20 mg PO QHS 05/06/20 Unknown History lisinopril 20 1 ea PO DAILY 05/06/20 Unknown History mg-hydrochlorothiazide 12.5 mg tablet naproxen 500 mg tablet 500 mg PO BID PRN #20 tabs 05/06/20 Unknown Rx tadalafil 5 mg tablet 5 mg PO DAILY 05/06/20 Unknown History testosterone cypionate 100 mg/mL 2 mg IM SA 05/06/20 Unknown History intramuscular oil bupropion HCl 150 mg 24 hr tablet, 150 mg PO DAILY 06/14/25 Unknown History extended release cyclobenzaprine 10 mg tablet 10 mg PO TID PRN PRN muscle spasm 06/14/25 Unknown History diclofenac sodium 1 % topical gel 4 ea topical 4X/DAY PRN PRN 06/14/25 Unknown History arthritis methadone 5 mg tablet 7.5 mg PO QPM 06/14/25 Unknown History semaglutide 1 mg/dose (4 mg/3 mL) 1 mg subcut QWEEK 06/14/25 Unknown History subcutaneous pen injector (Ozempic) Allergy/AdvReac Type Severity Reaction Status Date / Time No Known Allergies Allergy Verified 06/14/25 02:24 Social History Smoking Status: Never smoker ROS ROS ED Constitutional Constitutional ED: Denies chills or fever(s) Eyes Eyes: Denies change in vision ENT ENT ED: Denies sore throat Cardiovascular Cardiovascular: Denies chest pain, palpitations or racing heartbeat Respiratory/Chest Respiratory/Chest: Denies cough or dyspnea Gastrointestinal Gastrointestinal: Denies abdominal pain, diarrhea, nausea or vomiting Musculoskeletal Musculoskeletal: Denies myalgias Integumentary Denies rash Neurologic Neurologic: Reports paresthesias and weakness; Denies headache(s) Psychiatric Psychiatric: Reports anxiety Hematologic/Lymphatic Hematologic/Lymphatic: Denies easy bleeding or easy bruising EXAM Physical Exam Const Vital Signs: 06/14/25 02:22 06/14/25 02:26 06/14/25 02:32 Temperature 98 F Temperature Source Temporal Pulse Rate 99 Respiratory Rate 18 Blood Pressure 189/107 H 171/90 H Blood Pressure Mean 134 117 Pulse Ox 95 96 Oxygen Delivery Method Room Air Room Air 06/14/25 02:32 Temperature Temperature Source Pulse Rate 88 Respiratory Rate 18 Blood Pressure 149/79 H Blood Pressure Mean 102 Pulse Ox 96 Oxygen Delivery Method Room Air Positive well nourished and well developed General Appearance ED: well developed; Negative for pallor HEENT HEENT Narrative: Normocephalic atraumatic No tongue or cheek biting noted to suggest seizure activity No signs of secondary infection noted in the posterior pharynx Eyes PERRL and EOMs intact bilaterally General Eye ED: Negative for scleral icterus Neck supple and no JVD Resp normal respiratory effort and clear to auscultation bilaterally Cardio regular rate and regular rhythm Rate: other Other Details: Heart is regular rate and rhythm without murmurs rubs or gallops Radial and carotid pulses are equal and symmetric No carotid bruit noted GI non-tender, non-distended and no masses GI Narrative: Abdomen is soft nontender and nondistended with hypoactive bowel sounds No voluntary guarding or rigidity or pulsatile mass No peritoneal signs Auscultation: hypoactive bowel sounds Palpation: soft Extremity normal to inspection Extremity Narrative: No asymmetric edema no pitting edema negative Homans' sign bilaterally Neuro oriented x3 Neuro Narrative: GCS of 15 Patient is awake alert and oriented to person place and time He received a stroke NIH stroke scale score of 2. He receives a value of 1 point right sided facial droop/weakness. He also receives a value of 1 point for mild dysarthria The patient also has tongue deviation towards the right He denies any paresthesias or sensation change There is no pronator drift or truncal ataxia or dysmetria Strength is plus 5 out of 5 in both the upper and lower extremities bilaterally There is forehead sparing noted with the right sided facial weakness/droop going against Oswald's palsy Sensorium / Orientation: alert Psych Mood & Affect: anxious and tearful Skin no rashes or lesions noted General Skin Exam: Negative for jaundice or pallor MDM MDM MDM Narrative Medical decision making narrative: Patient arrived to the ER hypertensive but otherwise with stable vitals. He reported he went to bed at 8 PM and then awoke this way around 130/2 AM. Based on this report 8 PM is his last known well and therefore he is outside any window for TNK and therefore it is not recommended to be given. He does have a past history of Oswald's palsy but at this time as he has tongue deviation as well as forehead sparing associated with the right facial droop this would indicate that his symptoms are not from Oswald's palsy. Therefore stroke alert was activated. The patient underwent a CT and CTA of the head and neck. The noncontrast CT showed a left sided mass which was not present on his previous CT scan from 2019 and could be the cause of his focal symptoms at this time. The case was discussed with neurologist from [facility] Dr. Parra. She recommends transfer from ER to ER so they can perform further testing regarding his symptoms and mass such as MRI and discussed evaluation by neurology and neurosurgery. The patient was given 20 mg of IV Decadron to help with brain inflammation and pressure while he is awaiting transfer. At this time transfer is delayed by 3 hours secondary to weather. However as this is a mass issue and not a vascular blockage he is not falling into a 24-hour timeframe for an LVO and therefore there is no need to outsource as a 3-hour wait is an acceptable timeframe at this juncture based on his vitals symptoms and the fact that changes are related to brain mass and not vascular occlusion or acute bleed. The plan of care was discussed with the patient and family. They are agreeable to it and therefore he will be transferred to [facility] for further evaluation and treatment options History & Record Review Discussion w/independent historian: Patient Management Discussion w/another healthcare provider: [employer] Discharge Plan Triage Chief Complaint: Numb/Ting ED Provider: Chris Guzmán Dx/Rx/DC Orders Clinical Impression: Brain mass, Stroke-like symptoms, Hypertension, Hyperlipidemia, Diabetes mellitus type 2, noninsulin dependent Prescriptions: No Action atorvastatin 20 MG tablet 20 mg PO QHS lisinopril-hydrochlorothiazide 1 EACH tablet 1 ea PO DAILY testosterone cypionate 100 MG/ML oil 2 mg IM SA Rx Instructions: every other week tadalafil 5 MG tablet 5 mg PO DAILY naproxen 500 MG tablet 500 mg PO BID PRN Qty: 20 0RF Ozempic 1 mg/dose (4 mg/3 mL) pen injector 1 mg SUBCUT QWEEK Patient Comments: [NO ORIGINAL SIG] methadone 5 mg tablet 7.5 mg PO QPM diclofenac sodium 1 % gel 4 ea topical 4X/DAY PRN PRN (Reason: arthritis) cyclobenzaprine 10 mg tablet 10 mg PO TID PRN PRN (Reason: muscle spasm) bupropion HCl 150 mg tablet extended release 24 hr 150 mg PO DAILY Primary Care Provider: Care Physician,No Primary Referrals: Care Physician,No Primary [Primary Care Provider, Medical] Print Language: Upper Sorbian Disposition Disposition: Acute Care Hospital Discharge Location: [facility]
[2025-06-14 03:01] LABS: Hematocrit 49.3 % (40-54); Hemoglobin 17.7 g/dL (13.0-16.5); Immature Granulocytes Count 0.050 X10^3/uL (0.0-0.0); Mean Corp Hgb Conc 35.9 g/dL (32-36); Mean Corpuscular Volume 85.9 fL (80-94); Mean Platelet Vol. 9.3 fl (6.2-12.0); NRBC Flagged by Analyzer 0 % (0-5); Platelet Count 316 K/mm3 (150-450); RBC Distribution Width CV 11.8 % (11.6-14.6); RBC Distribution Width SD 36.8 fl (35.1-43.9); Red Blood Count 5.74 M/mm3 (4.6-6.2); White Blood Count 13.3 K/mm3 (4.4-11.0)
[2025-06-14 03:13] LABS: Partial Thromboplast Time 31.7 Seconds (24.1-36.2); Prothrombin Time (Protime)PT. 14.4 SECONDS (11.7-14.9)
[2025-06-14 03:20] LABS: Anion Gap 13 (7-18); BUN 20 mg/dL (4-19); BUN/Creat Ratio 17.4 RATIO (10-20); Calcium,Total 9.1 mg/dL (7.6-11.0); Carbon Dioxide 24.3 mmol/L (20.0-29.0); Chloride 99 mmol/L (96-106); Estimated Creatinine Clearance 96.51 ml/min (50-250); Glucose 141 mg/dL (70-99); Potassium 3.4 mmol/L (3.5-5.1)
--- NOTE | 2025-06-14 03:30 | ED.RN ---
Patient requesting we contact his family. Patient was given pen and paper as he is having a hard time getting words out. He wrote down his son and daughters name and phone numbers along with his aunt. Daughter Indira, son Kelton and aunt Tonya all contacted per patient request and updated on patients condition and transfer plan. Patient also requesting this RN call [facility] as his is currently admitted there. This RN called and spoke with patients 's nurse Hannah and updated her on patients condition.
== END 2025-06-14 06:44 | disposition short-term general hospital (02) ==
PROVIDERS: Emergency Provider Emergency Medicine; PCP Pediatrics; Visit Provider Emergency Medicine
DX: G93.9 Disorder of brain, unspecified (principal); E11.9 Type 2 diabetes mellitus without complications; E78.5 Hyperlipidemia, unspecified; I10 Essential (primary) hypertension; R20.0 Anesthesia of skin; R20.2 Paresthesia of skin; Z79.85 Long-term (current) use of injectable non-insulin antidiabetic drugs; Z79.899 Other long term (current) drug therapy; R29.702 NIHSS score 2; R29.810 Facial weakness; R47.1 Dysarthria and anarthria
CPT/HCPCS: 70450; 70496; 70498; 80048; 82962; 85025; 85610; 85730; 93005; 96374; 96375; 99285; Q9967; A4216; J2405